=== PATIENT | male | born 1940 | race Caucasian/White ===

== ENCOUNTER → 2017-05-26 | Outpatient (CLI) | payer BC ==
[2017-04-06 09:09] VITALS: BMI 25.5
[~2017-05-26] MED LIST: ACET-3079 PO; ALP25 PO; ALPR-429 PO; AMOX-362 PO; APIX5TAB PO; ASP325 PO; ASPI-1441 PO; ASPI-764 PO; ASPI81TA94 PO; ATEN-1 PO; ATEN-65 PO; BACDS PO; CAR3.125 PO; CAR6.25 PO; CARV12.578 PO; CARV3.1255 PO; CEF300 PO; CELE-1 PO; CEPH500T7 PO; CETI10CA8 PO; CHOL10005 PO; CHOL100052 PO; CHOL100059 PO; CHOL200051 PO; CHOL500050 PO; CIP500 PO; CIPR-214 PO; CIPR-344 PO; CLIN300C99 PO; CLO75 PO; CYCL10TA29 PO; DEXT1DRO15 OP; DOXY-179 PO; DOXY50SY2 PO; ESCI10TA8 PO; ESOM20CA31 PO; ESOM40CA42 PO; FERR325T14 PO; FINA5TAB64 PO; FINA5TAB67 PO; FINASTERIDE; FLAX100042 PO; FURO-47 PO; FURO20TA19 PO; FURO40TA35 PO; GABA-547 PO; GABA-549 PO; GARL5000 PO; HYDR-385 PO; HYDR-4225 PO; HYDR-4228 PO; HYDR-4240 PO; HYDR-4309 PO; HYDR25CA13 PO; HYDR25CA83 PO; HYDR2TAB74 PO; LEV112 PO; LEV500 PO; LEVO-3 PO; LEVO112T44 PO; LEVO50TA80 PO; LIN600 PO; LIS10 PO; LIS5 PO; LISI-362 PO; LOR5/325 PO; MAGN400T10 PO; MAGN400T36 PO; MAGN400T4 PO; MAGN500T6 PO; METO2.5T15 PO; MULT-820 PO; MULTIVIT; NIAC250T18 PO; NIAC500T85 PO; NITR0.4T3 SL; NYST15CR32 TP; OFF COUMADIN FOR OR; OMEG-176 PO; OMEG-96 PO; OMEG100T3 PO; OMEG300C PO; OMEG500C7 PO; OMEP-137 PO; OMEP-153 PO; ONDA4TAB PO; OXYC-373 PO; OXYC-857 PO; OXYC-865 PO; OXYGENHOME INH; PANT40TA65 PO; PER; PER PO; PHENA200 PO; POLY17PO25 PO; POTA20PA25 PO; POTA20TA94 PO; POTA99TA6 PO; PRE5 PO; PRED-1 PO; RANI-324 PO; RANI150C17 PO; RIOC1TAB PO; ROS10 PO; ROSU40TA18 PO; SAW/1TAB2 PO; SIMV-1 PO; SIMV-59 PO; SIMVASTAT; SPIR50TA30 PO; SULF-198 PO; TRAM-420 PO; TRIA15CR40 TP; TRIA1CAP85 PO; UBID100C9 PO; UBID100T PO; UBID200C21 PO; VITA-175 PO; WAR1 PO; WAR5 PO; WARF2TAB81 PO; WARF3TAB36 PO; ZOL5 PO; ZOLP-1 PO; ZOLP-350 PO; ZOLP-360 PO; [UNRECOGNIZED DRUG - OTHER]
== END ==
LOC: AMB 16:10
PROVIDERS: ATTEND Nurse Practitioner
DX: I95.9 Hypotension, unspecified (principal)
CPT/HCPCS: A0425; A0427

== ENCOUNTER 2017-06-04 10:54 | Outpatient (RCR) | payer BC ==
[2017-04-06 09:09] VITALS: Ht 167.6 cm; Wt 66.5 kg
[~2017-06-04] VITALS: Ht 167.6 cm; Wt 66.5 kg
[~2017-06-04 10:54] MED LIST changes: -ONDA4TAB PO
[2017-06-04 11:06] VITALS: BP 122/67
[2017-06-04 12:43] LABS: PLATELET COUNT, AUTOMATED 399 K/uL (150-450)
[2017-06-04] MEDS ORDERED: LEV112 PO (15:54)
--- NOTE | 2017-06-04 21:05 | ONCOLOGY CONSULTATION ---
EVENT DATE: June 04, 2017 REFERRING PHYSICIAN Massimo Yarbrough MD REASON FOR CONSULTATION Evaluation and management of multiple myeloma. HISTORY OF PRESENT ILLNESS Patient is a 76-year-old male who came to the [facility] for evaluation of multiple concerns including severe pulmonary hypertension, recurrent venous thromboembolism, coronary artery disease, systolic heart failure with left ventricular ejection fraction of 45%, COPD, peripheral arterial disease, chronic lower extremity edema, nonhealing lower extremity ulcer and generalized pruritus. During his evaluation and admission there, he had nausea and vomiting and the patient was admitted for evolving sepsis and possible lower extremity cellulitis. His baseline creatinine is 1.4, and during hospitalization his creatinine peaked at 3.1 on May 04, 2017, which has improved after that. It was thought that his acute kidney injury was due to both hypotension and hemoglobin drop. 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 He was eventually diagnosed with multiple myeloma with 10% to 20% lambda light chain restricted plasma cells. Immunofixation showed IgD lambda and serum free light chain noted at kappa of 6.25 and lambda of 88.1, and a ratio of 0.0709. CT skeletal survey was negative for lytic or sclerotic bone lesions. He has had lower extremity edema for several years with erythematous induration. This has become pruritic. Patient does have known peripheral vascular disease. 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 PAST MEDICAL HISTORY 1. Chronic venous insufficiency with edema. 2. Congestive heart failure. 3. Coronary artery disease status post stent in 2007. 4. Peripheral vascular disease status post PTCA, November 2014, November 2015, January 2016, January 2017. 5. Pulmonary hypertension diagnosed in July 2015. 6. Right heart catheterization in December 2016 showed pressure 90/35 with a mean of 52. 7. History of recurrent lower extremity DVT, pulmonary embolism once, on lifelong anticoagulation. 8. Possible COPD, on home oxygen at night. 9. Granulomatous lung disease. 10. Paroxysmal atrial fibrillation. 11. Chronic anxiety. 12. HLA-B27 positive diagnosed with ankylosing spondylitis at [place] in late 1970s, currently quiet. 13. GERD. 14. Indeterminate skin rash. 15. Possible peripheral neuropathy. 16. Hypothyroidism. 17. Early cataract. 18. Multiple myeloma ISS stage II. 19. Proteinuria with normal creatinine 2.2 g/24 hours December 2016. 20. Impaired fasting glucose. A1c 6.3 in 2017. 21. Hyperlipidemia. 22. Hypertension. PAST SURGICAL HISTORY 1. Back surgery with laminectomy in 1970s. 2. Tonsillectomy. 3. Appendectomy. 4. Cholecystectomy. 5. Splenectomy following a high school sports injury. SOCIAL HISTORY Patient lives in [place], [place]. He is and has two children. 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 He smoked approximately a quarter to half a pack per day for 25-30 years and quit in 1989. He drank a fair amount of alcohol in the past, but now less than weekly. Denies drug use. FAMILY HISTORY Mother had lung cancer and she was a smoker. There is positive family history of polycystic disease. CURRENT MEDICATIONS 1. Metolazone 2.5 mg daily every other day. 2. Lasix 40 mg daily. 3. Tramadol 50 mg q.6 hourly p.r.n. for pain. 4. MiraLax 17 g daily. 5. Alprazolam 0.5 mg three times daily as needed for anxiety. 6. Carvedilol 12.5 mg tablet one-half tablet twice daily. 7. Gabapentin 300 mg three times daily. 8. Magnesium oxide 400 mg daily. 9. Adempas 1 mg tablet. 10. Vitamin D 2000 units daily. 11. Eliquis 5 mg twice daily. 12. Artificial Tears four times daily. 13. Levothyroxine 112 mcg daily. 14. Finasteride 5 mg at bedtime. 15. Aspirin 81 mg daily. 16. Oxygen by inhalation. ALLERGIES TRAZODONE which caused itching. REVIEW OF SYSTEMS CONSTITUTIONAL: No appetite or weight change. No fever, chills or sweating. No recent infection. HEENT: Ears: No tinnitus or hearing problem. Nose: Patient has nasal discharge. Throat: No sore throat or mouth ulcers. Eyes: No diplopia or visual changes. RESPIRATORY: Patient has occasional wheezing from asthma. CARDIOVASCULAR: No chest pain, orthopnea, or paroxysmal nocturnal dyspnea (PND) . No edema. No palpitations. GASTROINTESTINAL: No nausea or vomiting. The patient has constipation. No change in bowel movements. No heartburn or swallowing difficulties. No abdominal pain. No jaundice. No hematemesis, melena or rectal bleeding. GENITOURINARY: No hematuria or dysuria. MUSCULOSKELETAL: He has pain all over his joints. NEUROLOGICAL: Patient has occasional headache. HEMATOLOGIC/LYMPHATIC: He bruises easily, but he is using Eliquis. He is weak , tired and fatigued. No enlarged lymph nodes. SKIN: He has itching. PSYCHIATRIC: No anxiety or depression. PHYSICAL EXAMINATION GENERAL: Looks stable. Well-developed, well-nourished, and in no acute distress. VITAL SIGNS: Blood pressure 122/67, pulse 69 per minute, respirations 16 per minute, temperature 97.6, pulse oximetry 92% on 5L oxygen. HEENT: Head: Atraumatic. No sinus tenderness to palpation. Eyes: No icterus or conjunctivitis. Mouth and throat: No oral thrush or mucositis. NECK: Supple. No cervical or supraclavicular lymphadenopathy. LUNGS: Clear to auscultation and percussion bilaterally. HEART: Regular rate and rhythm. No gallops, murmurs, clicks or rubs. ABDOMEN: Soft and lax. No tenderness. No hepatosplenomegaly. No masses. EXTREMITIES: There is bilateral leg edema with evidence of chronic venous insufficiency in his legs. LYMPHATICS: No peripheral lymphadenopathy. NEUROLOGICAL: Conscious, alert and oriented times three. No focal motor or sensory deficits. PSYCHIATRIC: Mood and affect appear normal. SKIN: No skin rash, bruise or purpuric eruption. 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 CT skeletal survey came back negative for lytic or sclerotic bone lesions. Patient has been evaluated at [facility] and it seems that for his smoldering myeloma they recommended only followup. I am planning to proceed with CBC, chem panel, LDH, uric acid and myeloma profile today, including immunofixation for IgD. I will see him again in three months, repeating the same labs. I will try to get the records from his dent remover at the [facility]. If the patient will need treatment then, we will proceed with treatment for myeloma, most probably with Velcade and dexamethasone, or CyBorD chemotherapy. PLAN 1. CBC, chem panel, LDH, uric acid. 2. Myeloma profile including immunofixation for IgD. 3. Patient is to return in three months with the same labs. 4. Get records from his dent remover at the [facility]. 5. Patient is to contact us for any new concerns or complaints. DAVID
[2017-06-06] MEDS ORDERED: ONDA4TAB PO (09:06)
[2017-06-09] MEDS ORDERED: FERR-53 PO (15:05)
[2017-06-17] MEDS ORDERED: HYDR-4225 PO (17:11)
[2017-06-17] MEDS ORDERED: TRIA15CR40 TP (17:11)
[2017-06-17] MEDS ORDERED: RANI75TA5 PO (17:11)
[2017-06-17] MEDS ORDERED: DULO30CA6 PO (17:11)
[2017-07-02] MEDS ORDERED: DOXE45CR5 TD (11:33)
[2017-07-02] MEDS ORDERED: HYDR-4225 PO (11:33)
[2017-07-02] MEDS ORDERED: RANI150C17 PO (11:33)
[2017-07-02] MEDS ORDERED: PNEU0.5D3 IM (11:33)
[2017-07-02] MEDS ORDERED: DULO60CA56 PO (11:33)
[2017-07-13] MEDS ORDERED: OXYC-865 PO (13:04)
[2017-07-13] MEDS ORDERED: FURO40TA35 PO (13:04)
[2017-07-13] MEDS ORDERED: NYST15CR32 TP (13:04)
[2017-07-13] MEDS ORDERED: PREG50CA48 PO (13:11)
[2017-07-14] MEDS ORDERED: FINA5TAB67 PO (09:33)
[2017-07-14] MEDS ORDERED: ROSU40TA18 PO (09:33)
[2017-07-27] MEDS ORDERED: CAR6.25 PO (12:51)
[2017-07-27] MEDS ORDERED: PREG100C44 PO (12:51)
[2017-07-27] MEDS ORDERED: FURO40TA35 PO (12:51)
[2017-08-07] MEDS ORDERED: OXYGENHOME INH (19:00)
[2017-08-10] MEDS ORDERED: TRIA15OI20 TP (16:18)
[2017-08-12] MEDS ORDERED: CLOB15OI16 TP (11:18)
[2017-08-13] MEDS ORDERED: PREG150C33 PO (11:41)
[2017-08-16] MEDS ORDERED: DULO60CA56 PO (11:37)
[2017-08-17] MEDS ORDERED: HEPA40VI2 IM (10:00)
[2017-08-30] MEDS ORDERED: PNEI IJ (09:54)
== END 2017-09-01 ==
LOC: ONC 10:54
PROVIDERS: ATTEND Internal Medicine Hematology
DX: C90.00 Multiple myeloma not having achieved remission (principal); Z87.891 Personal history of nicotine dependence; Z79.82 Long term (current) use of aspirin; Z79.899 Other long term (current) drug therapy; J45.909 Unspecified asthma, uncomplicated; K59.00 Constipation, unspecified; R53.1 Weakness; R53.83 Other fatigue
CPT/HCPCS: 82040; 82232; 82247; 82310; 82374; 82435; 82565; 82947; 83615; 83883; 84075; 84132; 84155; 84295; 84450; 84460; 84520; 84550; 85025; 86334; 99202

== ENCOUNTER → 2017-06-04 | Outpatient (CLI) | payer BC ==
[2017-04-06 09:09] VITALS: BMI 25.5
[~2017-06-04] MED LIST changes: -FERR325T14 PO
== END ==
LOC: SPU 14:46
PROVIDERS: ATTEND Internal Medicine
DX: I50.9 Heart failure, unspecified (principal); Z86.711 Personal history of pulmonary embolism; I50.22 Chronic systolic (congestive) heart failure; N17.9 Acute kidney failure, unspecified; I83.009 Varicose veins of unspecified lower extremity with ulcer of unspecified site; I27.20 Pulmonary hypertension, unspecified; E86.0 Dehydration; F41.8 Other specified anxiety disorders
CPT/HCPCS: 82728; 83540; 83550; 83880; 84443

== ENCOUNTER 2017-06-06 08:27 | Emergency (ER) | payer BC ==
[2017-04-06 09:09] VITALS: Ht 167.6 cm; Wt 65.9 kg
[~2017-06-06] VITALS: Ht 167.6 cm; Wt 65.9 kg
[~2017-06-06 08:27] MED LIST changes: -DULO30CA6 PO; -FERR-53 PO; -ONDA4TAB PO; -RANI75TA5 PO
--- NOTE | 2017-06-06 08:53 | ER Report ---
History and Physical Time Seen By MD: 08:41 Hx. of Stated Complaint: pt reports vomiting since 1500 yesterday and pain in entire abdomen HPI/ROS CC: Nausea and vomiting HPI: 76-year-old male presents to the emergency Department per EMS. Past medical history ankylosing spondylosis and cervical radiculopathy to renal failure and anxiety depression, PE, chronic systolic heart failure, non-ST elevated GA, hypothyroid vascular disease, splenectomy, cholecystectomy. Patient presents to the emergency department with nausea vomiting and abdominal pain from throwing up. He specifically is asking for Dilaudid and ketamine. I discussed with him in depth that I cannot give him narcotics for his chronic pain which he is requesting because he is receiving oxycodone on a monthly basis from his PCP. He states that he does have oxycodone at home tonight reiterated that he does have a powerful narcotic for his pain control. If I give him pain medication for chronic pain in the emergency department it could jeopardize his relationship with his PCP and he may lose his PCP and his oxycodone prescription. I discussed with him that I would give him something for nausea and vomiting. But no narcotics will be given at this time for chronic pain which she is presenting with. He is rating his discomfort level as a 7 out of 10. He is afebrile. He denies any diarrhea. He is well-known to the emergency department for requesting narcotics. ROS: 12 point review of systems essentially negative other than what's mentioned in history of present illness. NURSES AND OLD MEDICAL RECORDS: Reviewed PMH: Reviewed SURGICAL HX: Reviewed FAMILY HX: Noncontributory SOCIAL HX: Patient is a home he denies illicit drugs, he does drink wine denies smoking. VITAL SIGNS: Reviewed CONSTITUTIONAL: 76-year-old male in minimal distress. PHYSICAL EXAM: HEENT: Pupils equal round reactive to light and accommodate, EOMI, tympanic membranes pearly white umbo present with good light reflex. Lips dry mucous membranes moist gums nonbleeding uvula midline and rises equally with phonation, oropharynx noninjected, teeth intact. NECK: Neck supple, thyroid not appreciated, anterior and posterior cervical lymphadenopathy not appreciated. Trachea midline and rises equally with phonation. CARDIAC: S1-S2 regular rate rhythm no murmurs rubs or gallops. LUNGS: Lungs clear bilaterally posteriorly in all michael. Good air movement. ABDOMEN: Abdomen soft, nondistended, bowel sounds active in all 4 quadrants, no bruits noted, no CVA tenderness. MUSCULOSKELETAL: Strength 5 out of 5 x 4 extremities, no deformities noted. Does have peripheral vascular disease. NEUROLOGIC: Patient alert and oriented by 3 Allergies: Coded Allergies: trazodone (Verified Allergy, Intermediate, 06/06/17) Home Meds Active Scripts Levothyroxine Sodium (LEVOTHYROXINE SODIUM) 0.112 Mg Tab, 0.112 MG PO QAM, #90 TAB 3 Refills Prov:ELIS VALLE MD 06/04/17 Escitalopram Oxalate (ESCITALOPRAM OXALATE) 10 Mg Tablet, 10 MG PO QDAY, #30 TAB 5 Refills Prov:ELIS VALLE MD 06/04/17 Metolazone (METOLAZONE) 2.5 Mg Tablet, 2.5 MG PO QODAY, #15 TAB Hold for 72hrs then resume Prov:NAN CORTES DO 05/27/17 Furosemide (LASIX) 40 Mg Tablet, 1 TAB PO DIRECTED, #90 TAB Hold for 48hrs then resume 2 tab in AM and 1 tab in PM daily Prov:NAN CORTES DO 05/27/17 Carvedilol (CARVEDILOL) 12.5 Mg Tablet, 0.5 MG PO BID, #60 TAB 4 Refills Prov:ELIS VALLE MD 05/17/17 Gabapentin (GABAPENTIN) 300 Mg Capsule, 300 MG PO TID, #90 CAPSULE 3 Refills Prov:ELIS VALLE MD 04/13/17 Magnesium Oxide (MAG-OXIDE) 400 Mg Tablet, 400 MG PO QDAY, #30 Prov:ELIS VALLE MD 04/13/17 Apixaban (ELIQUIS) 5 Mg Tablet, 5 MG PO BID, #60 TAB 3 Refills Prov:ELIS VALLE MD 03/08/17 Reported Medications Tramadol Hcl (TRAMADOL HCL) 50 Mg Tablet, 50 MG PO Q6H Y for pain, TAB 05/17/17 Polyethylene Glycol 3350 (MIRALAX) 17 Gm Powd.pack, 17 GM PO QDAY, PKT 05/17/17 Alprazolam (XANAX) 0.5 Mg Tablet, 0.5 TAB PO TID Y for anxiety, TAB 05/17/17 Riociguat (Adempas) 1 Mg Tablet, 0.5 MG PO TID 03/23/17 Cholecalciferol (Vitamin D3) (D-2000) 2,000 Unit Capsule, 2000 UNIT PO QDAY, CAPSULE 03/23/17 Dextran 70/Hypromellose (ARTIFICIAL TEARS) 1 Each Droperette, 1 EACH OP QID 12/31/16 Finasteride (FINASTERIDE) 5 Mg Tablet, 5 MG PO QHS 12/31/16 Aspirin (ASPIRIN) 81 Mg Tab.chew, 81 MG PO QDAY, TAB.CHEW 12/31/16 Oxygen (OXYGEN) Inha, 2.5 L INH, L 07/13/16 Hx Smoking: Yes Smoking Status: Former Smoker Exposure to Second Hand Smoke?: No Hx Substance Use Disorder: No Hx Alcohol Use: Yes (1-2 per week) Constitutional Vital Sign - Last 24 Hours 06/06/17 08:31 Temp 98.1 Pulse 106 Resp 14 B/P (MAP) 166/107 Pulse Ox 93 Medical Decision Making ED Course/Re-evaluation ED Course I discussed in length that he would not be receiving narcotics are ketamine in the emergency Department for his chronic pain syndrome. He will be getting Phenergan and/or Zofran. He will be discharged home and follow-up with his PCP. I reiterated that I would not jeopardize his relationship with his PCP Y giving him narcotics for a chronic pain syndrome in the emergency department. Patient were planted in agreement. Re-evaluation Medical decision-making viral gastroenteritis, drug-seeking. Decision to Disposition Date: Jun 06, 2017 Decision to Disposition Time: 09:04 Depart Departure Latest Vital Signs Vital Signs Date Time Temp Pulse Resp B/P (MAP) Pulse Ox O2 Delivery O2 Flow Rate FiO2 06/06/17 08:31 98.1 106 14 166/107 93 Impression: Primary Impression: Nausea & vomiting Condition: Condition Unchanged Disposition: HOME OR SELF-CARE Referrals: ELIS VALLE MD (PCP) New Scripts Ondansetron (ZOFRAN ODT) 4 Mg Tab.rapdis 8 MG PO Q6H Y for NAUSEA/VOMITING, #20 TAB.ODALIS 0 Refills Prov: NEEMA LOGAN MD 06/06/17 Patient Instructions: Acute Nausea and Vomiting (ED) Additional Instructions: Immediately given Zofran take as directed. Follow-up with your regular doctor for pain control via chronic pain syndromes. I and the staff wanted to thank you for allowing us to take care of your needs today in the emergency department at [facility]. We have tried to answer all of your questions and concerns. Please feel free to return to the emergency department for any further concerns or unanswered questions. Problem Qualifiers Primary Impression: Nausea & vomiting Vomiting type: unspecified Vomiting Intractability: unspecified Qualified Codes: R11.2 - Nausea with vomiting, unspecified NEEMA LOGAN MD Jun 06, 2017 08:53
[2017-06-06] MEDS ORDERED: ONDA4TAB PO (09:06)
[2017-06-06 09:18] VITALS: BP 146/108
[2017-06-09] MEDS ORDERED: FERR325T14 PO (15:05)
== END 2017-06-06 09:44 | disposition home or self-care (01) ==
LOC: ER 08:47
DX: R11.2 Nausea with vomiting, unspecified (principal)
CPT/HCPCS: 99284

== ENCOUNTER → 2017-06-06 | Outpatient (CLI) | payer BC ==
[2017-04-06 09:09] VITALS: BMI 25.5
[~2017-06-06] MED LIST changes: +DULO30CA6 PO; +FERR-53 PO; +ONDA4TAB PO; +RANI75TA5 PO
== END ==
LOC: AMB 09:40
PROVIDERS: ATTEND Nurse Practitioner
DX: R06.02 Shortness of breath (principal); R10.9 Unspecified abdominal pain
CPT/HCPCS: A0425; A0428

== ENCOUNTER → 2017-06-06 | Outpatient (CLI) | payer BC ==
[2017-04-06 09:09] VITALS: BMI 25.5
== END ==
LOC: AMB 07:53
PROVIDERS: ATTEND Nurse Practitioner
DX: R10.9 Unspecified abdominal pain (principal); R11.10 Vomiting, unspecified; R53.1 Weakness
CPT/HCPCS: A0425; A0427

== ENCOUNTER 2017-06-25 08:14 | Outpatient (RCR) | payer BC ==
[2017-04-06 09:09] VITALS: BMI 25.5
[~2017-06-25 08:14] MED LIST changes: +DULO30CA6 PO; +FERR-53 PO; +ONDA4TAB PO; -RANI-324 PO; +RANI-366 PO; +RANI75TA5 PO; -SIMV-59 PO; +SIMV-63 PO; +WARF2TAB13 PO; -WARF2TAB81 PO
--- NOTE | 2017-06-28 12:52 | Transitional Care Management ---
Assessment Visit Type: Telephone Visit Spoke with: Meño Cardiac: WNL Except Cardiac Comment: 06/28 Reports hes managing CHF with lasix 2 tab in am and 1 in pm. Is taking his bp med bid. Cant wrap legs or use comp socks as his legs were too tender but, keeps them elevated above his heart when in his recliner Respiratory: WNL Except Respiratory Comment: 06/28 Reports "I don't need it (oxygen)". Wears anywhere from 2-4 L when he does wear it. He states pox 86% on avg and instructed he should have it at 89 or more. Review se of low o2 could be SOB confusion. Is on adempas and the pharmacy has a person from [place] assess his bp prior to renewing or increasing dose. He notes prior bps were 140/80 but now 120/80 and was once 88/48 but no dizzyness. Instruct not to take with his magnesium. GI: Nutrition: WNL Except GI Comment: 06/28 reports never liked much salt. primary fresh fruit and vegies. He only restricted fluids when his legs were edematous. Enc him to limit to 2L due to CHF dx. Not a smoker, Cant remember last etoh drink. Only a cup of coffee rarely. Little fat in diet Wt Gain/Loss: WNL Except Weight Comment: needs daily wt Musculoskeletal, Exercise: WNL Except Musculoskeletal, Excercise Com: 06/28 with less pain states he can walk better/more. Enc to keep walking to improve circulation/pain Integumentary: WNL Except Integumentary Comment: 06/28 states "I cut the aspirin out 2-3 weeks ago...just experimenting" States he took it for years but quit because his legs beneath the knees bilat had pain, redness, drainage, edema and arms were black and blue. All symptons have been improving since quitting ASA. Asked if he thinks the duloxetine and hydroxyzine have helped and may be the reason his sx have improved. REcomended he ask Dr before quitting any med and that he ask him if he should resume since he has had stents in the past and that ASA was supposed to prevent platelets from clogging his stents. Has appt with Dr Reese for allergy testing 07/13 Feeling of Well Being: WNL Except Feeling of Well Being Comment: 06/28 felt bad after going to [facility]. Lost his job. Now is a "shut in" but he can drive now. Pain/Management: WNL Except Pain/Management Comment: 06/28 improving in legs with duloxetine and stopping his ASA about the same time Scheduled Follow-Up with [facility]: Yes (Dr Yarbrough 07/02. Dr Reese 07/13) Community Resources/[facility]: 06/28 states Eliane from [facility] pharmacy visits him for adempas refill and to increasing dose .5mg each refill. Questions for Future PCP Visit: 06/28 Has stopped ASA on his own. Should he resume? Duloxetine started about the same time and symptoms have improved, should it be continued? Is it safe to go without O2 prn thru the day? He reports lowered bp and edema with adempas use. Insomnia? TCM Discharge Criteria Medication Knowledge: 06/28 review some meds with him and he knows names and doses Disease Management/Concern/Wha: CHF Transitional Care Comment: 06/28 Refererd to TCN due to frequency in ER. He reports feeling better since his return from [place]. Only wearing O2 prn days and at hs. "I just turn it on to 2,3,4, I don't know the difference, and breathe". REeports leg redness, edema and scales have diminished by stopping his ASA. Enc him to discuss this with MD before self medicating as his stent is at risk of clogging. Will need reminding to limit fluids, wt q day and CHF sx to monitor and report. Agree to f/u next week Copies to: ELIS YARBROUGH MD, GENEVA E Jun 28, 2017 12:52
[2017-07-02] MEDS ORDERED: DULO60CA56 PO (11:33)
[2017-07-02] MEDS ORDERED: PNEU0.5D3 IM (11:33)
[2017-07-02] MEDS ORDERED: RANI150C17 PO (11:33)
[2017-07-02] MEDS ORDERED: DOXE45CR5 TD (11:33)
[2017-07-02] MEDS ORDERED: HYDR-4225 PO (11:33)
--- NOTE | 2017-07-06 13:49 | Transitional Care Management ---
Assessment Visit Type: Telephone Visit Spoke with: Meño Cardiac: WNL Except Cardiac Comment: 06/28 Reports hes managing CHF with lasix 2 tab in am and 1 in pm. Is taking his bp med bid. Cant wrap legs or use comp socks as his legs were too tender but, keeps them elevated above his heart when in his recliner 07/06 No edema, lasix continues. He is not taking any asprin. Respiratory: WNL Except Respiratory Comment: 06/28 Reports "I don't need it (oxygen)". Wears anywhere from 2-4 L when he does wear it. He states pox 86% on avg and instructed he should have it at 89 or more. Review se of low o2 could be SOB confusion. Is on adempas and the pharmacy has a person from [place] assess his bp prior to renewing or increasing dose. He notes prior bps were 140/80 but now 120/80 and was once 88/48 but no dizzyness. Instruct not to take with his magnesium. 07/06 Wears 2-4 L PRN, he tollerates longer periods without O2. Checks his O2 sats regularly, maintaining 89-91% on RA for extended periods. GI: Nutrition: WNL Except GI Comment: 06/28 reports never liked much salt. primary fresh fruit and vegies. He only restricted fluids when his legs were edematous. Enc him to limit to 2L due to CHF dx. Not a smoker, Cant remember last etoh drink. Only a cup of coffee rarely. Little fat in diet 07/06 reinforced 2L fluid restriction. Wt Gain/Loss: WNL Except Weight Comment: needs daily wt 07/06 He says his weights are doing "real good", but can't remember his last weight, that was a few days ago. I stressed the importance of daily weights. Constipation?: No : WNL Musculoskeletal, Exercise: WNL Except Musculoskeletal, Excercise Com: 06/28 with less pain states he can walk better/more. Enc to keep walking to improve circulation/pain 07/06 Increased foot pain, "feels like I am walking on gravel". Dr Yarbrough ordered a cream for this during his last visit, but he was unable to get it due to cost. Mobility/Falls: WNL Except Mobility Comment: 07/06 He can only walk short distances due to foot pain. Integumentary: WNL Except Integumentary Comment: 06/28 states "I cut the aspirin out 2-3 weeks ago...just experimenting" States he took it for years but quit because his legs beneath the knees bilat had pain, redness, drainage, edema and arms were black and blue. All symptons have been improving since quitting ASA. Asked if he thinks the duloxetine and hydroxyzine have helped and may be the reason his sx have improved. REcomended he ask Dr before quitting any med and that he ask him if he should resume since he has had stents in the past and that ASA was supposed to prevent platelets from clogging his stents. Has appt with Dr Reese for allergy testing 07/13 07/06 Left leg wound, [facility] is discharging him, and he dosn't know how this wound will get cared for. Feeling of Well Being: WNL Except Feeling of Well Being Comment: 06/28 felt bad after going to [facility]. Lost his job. Now is a "shut in" but he can drive now. 07/06 "I can't walk or work, medical costs are going up, I guess I'll live until I run out of money." Socialization: WNL Except Socialization Comment: 07/06 Not getting out of his house. Pain/Management: WNL Except Pain/Management Comment: 06/28 improving in legs with duloxetine and stopping his ASA about the same time 07/06 Unable to walk more than about 50 ft due to pain in his feet. "I feel like I am walking on gravel." He was unable to fill a script for a cream to help with this. Scheduled Follow-Up with [facility]: Yes (Dr Yarbrough 07/09) Community Resources/[facility]: 06/28 states Eliane from [facility] pharmacy visits him for adempas refill and to increasing dose .5mg each refill. 07/06 [facility] discharged him. Questions for Future PCP Visit: 06/28 Has stopped ASA on his own. Should he resume? Duloxetine started about the same time and symptoms have improved, should it be continued? Is it safe to go without O2 prn thru the day? He reports lowered bp and edema with adempas use. Insomnia? 07/06 Need for anticoagulation? Neuropathy pain in his feet? TCM Discharge Criteria Medication Knowledge: 06/28 review some meds with him and he knows names and doses Disease Management/Concern/Wha: CHF Transitional Care Comment: 06/28 Refererd to TCN due to frequency in ER. He reports feeling better since his return from [place]. Only wearing O2 prn days and at hs. "I just turn it on to 2,3,4, I don't know the difference, and breathe". REeports leg redness, edema and scales have diminished by stopping his ASA. Enc him to discuss this with MD before self medicating as his stent is at risk of clogging. Will need reminding to limit fluids, wt q day and CHF sx to monitor and report. Agree to f/u next week 07/06 He is less mobile, due to pain. Wears O2 PRN, sats 89-91 RA. He is not taking ASA, I explained the risks. I encouraged daily weights, 2L fluid restriction. He has an appt with Dr Yarbrough on Wednesday, I encouraged him to ask about the ASA, Medications for his peripheral neuropathies. Copies to: ELIS YARBROUGH MD, MICHAEL K Jul 06, 2017 13:49
[2017-07-13] MEDS ORDERED: FURO40TA35 PO (13:04)
[2017-07-13] MEDS ORDERED: NYST15CR32 TP (13:04)
[2017-07-13] MEDS ORDERED: OXYC-865 PO (13:04)
[2017-07-13] MEDS ORDERED: PREG50CA48 PO (13:11)
[2017-07-14] MEDS ORDERED: ROSU40TA18 PO (09:33)
[2017-07-14] MEDS ORDERED: FINA5TAB67 PO (09:33)
--- NOTE | 2017-07-14 12:29 | Transitional Care Management ---
Assessment Visit Type: Telephone Visit Spoke with: Meño Cardiac: WNL Except Cardiac Comment: 06/28 Reports hes managing CHF with lasix 2 tab in am and 1 in pm. Is taking his bp med bid. Ulices wrap legs or use comp socks as his legs were too tender but, keeps them elevated above his heart when in his recliner 07/06 No edema, lasix continues. He is not taking any asprin. 07/13 states legs "not swollen" but wt increasing. taking lasix bid, ulices wear comp socks, "skin sensitive to touch" too painful to place Respiratory: WNL Except Respiratory Comment: 06/28 Reports "I don't need it (oxygen)". Wears anywhere from 2-4 L when he does wear it. He states pox 86% on avg and instructed he should have it at 89 or more. Review se of low o2 could be SOB confusion. Is on adempas and the pharmacy has a person from [place] assess his bp prior to renewing or increasing dose. He notes prior bps were 140/80 but now 120/80 and was once 88/48 but no dizzyness. Instruct not to take with his magnesium. 07/06 Wears 2-4 L PRN, he tollerates longer periods without O2. Checks his O2 sats regularly, maintaining 89-91% on RA for extended periods. 07/14 sats 90% yest in clinic on 4 L; stress importance of wearing /7 and for helping PVD. denies sob, Enc cdb to prevent pneumonia GI: Nutrition: WNL Except GI Comment: 06/28 reports never liked much salt. primary fresh fruit and vegies. He only restricted fluids when his legs were edematous. Enc him to limit to 2L due to CHF dx. Not a smoker, Ulices remember last etoh drink. Only a cup of coffee rarely. Little fat in diet 07/06 reinforced 2L fluid restriction. 07/13 c/o chronic constipation, review colace, miralaxand fiber. "Need to drink" whentold to restrict to 2 L a day Wt Gain/Loss: WNL Except Weight Comment: needs daily wt 07/06 He says his weights are doing "real good", but can't remember his last weight, that was a few days ago. I stressed the importance of daily weights. 07/14 reports up to 141 now . asked if it was water wt as lasix can only help with limited amount Constipation?: No : WNL Musculoskeletal, Exercise: WNL Except Musculoskeletal, Excercise Com: 06/28 with less pain states he can walk better/more. Enc to keep walking to improve circulation/pain 07/06 Increased foot pain, "feels like I am walking on gravel". Dr Yarbrough ordered a cream for this during his last visit, but he was unable to get it due to cost. Mobility/Falls: WNL Except Mobility Comment: 07/06 He can only walk short distances due to foot pain. 07/14 reports he lost his balance and fell at home. has stairs to climb and his legs buckle if he has to carry something. Knows exercises he can do in his chair to help maintain strength andmobility. enc to do them or return to PT. Integumentary: WNL Except Integumentary Comment: 06/28 states "I cut the aspirin out 2-3 weeks ago...just experimenting" States he took it for years but quit because his legs beneath the knees bilat had pain, redness, drainage, edema and arms were black and blue. All symptons have been improving since quitting ASA. Asked if he thinks the duloxetine and hydroxyzine have helped and may be the reason his sx have improved. REcomended he ask Dr before quitting any med and that he ask him if he should resume since he has had stents in the past and that ASA was supposed to prevent platelets from clogging his stents. Has appt with Dr Reese for allergy testing 07/13 07/06 Left leg wound, [facility] is discharging him, and he dosn't know how this wound will get cared for. 07/14 saw ENT yesterday who is getting f/u on a biopsy, will return on 07/21 Feeling of Well Being: WNL Except Feeling of Well Being Comment: 06/28 felt bad after going to [facility]. Lost his job. Now is a "shut in" but he can drive now. 07/06 "I can't walk or work, medical costs are going up, I guess I'll live until I run out of money." 07/14 reports cant afford $200 copay for newlyrica. States "tired of living like this" and "this isn't living". will trylyrica Socialization: WNL Except Socialization Comment: 07/06 Not getting out of his house. Pain/Management: WNL Except Pain/Management Comment: 06/28 improving in legs with duloxetine and stopping his ASA about the same time 07/06 Unable to walk more than about 50 ft due to pain in his feet. "I feel like I am walking on gravel." He was unable to fill a script for a cream to help with this. 07/14 has new rx for percocet bid. enc to keep legs elevated Scheduled Follow-Up with Provi: Yes (Dr Yarbrough 07/09) Community Resources/HHC: 06/28 states Eliane from [facility] pharmacy visits him for adempas refill and to increasing dose .5mg each refill. 07/06 [facility] discharged him. 07/14 sees Zenon in 2 wk. His nurse to make f/u with cardio and pulm Questions for Future PCP Visit: 06/28 Has stopped ASA on his own. Should he resume? Duloxetine started about the same time and symptoms have improved, should it be continued? Is it safe to go without O2 prn thru the day? He reports lowered bp and edema with adempas use. Insomnia? 07/06 Need for anticoagulation? Neuropathy pain in his feet? 07/14 PT for weakness and fall? Ability to pay $200 copay for lyrica. Pt states he "needs to drink " but is on 2 L fluid restriction for CHF; please clarify with pt. f/u for statement that "I'm tired of living like this". Referral to [place] specialist in [place] for a laser treatment? TCM Discharge Criteria Medication Knowledge: 06/28 review some meds with him and he knows names and doses Disease Management/Concern/Wha: CHF Transitional Care Comment: 06/28 Refererd to TCN due to frequency in ER. He reports feeling better since his return from [place]. Only wearing O2 prn days and at hs. "I just turn it on to 2,3,4, I don't know the difference, and breathe". REeports leg redness, edema and scales have diminished by stopping his ASA. Enc him to discuss this with MD before self medicating as his stent is at risk of clogging. Will need reminding to limit fluids, wt q day and CHF sx to monitor and report. Agree to f/u next week 07/06 He is less mobile, due to pain. Wears O2 PRN, sats 89-91 RA. He is not taking ASA, I explained the risks. I encouraged daily weights, 2L fluid restriction. He has an appt with Dr Yarbrough on Wednesday, I encouraged him to ask about the ASA, Medications for his peripheral neuropathies. Copies to: ELIS YARBROUGH MDSEBEWAING Celina Jul 14, 2017 12:29
[2017-07-27] MEDS ORDERED: PREG100C44 PO (12:51)
[2017-07-27] MEDS ORDERED: CAR6.25 PO (12:51)
[2017-07-27] MEDS ORDERED: FURO40TA35 PO (12:51)
--- NOTE | 2017-08-03 14:27 | Transitional Care Management ---
Assessment Cardiac: WNL Except Cardiac Comment: 06/28 Reports hes managing CHF with lasix 2 tab in am and 1 in pm. Is taking his bp med bid. Ulices wrap legs or use comp socks as his legs were too tender but, keeps them elevated above his heart when in his recliner 07/06 No edema, lasix continues. He is not taking any asprin. 07/13 states legs "not swollen" but wt increasing. taking lasix bid, ulices wear comp socks, "skin sensitive to touch" too painful to place 07/21 denies edema, sob or wt gain Respiratory: WNL Except Respiratory Comment: 06/28 Reports "I don't need it (oxygen)". Wears anywhere from 2-4 L when he does wear it. He states pox 86% on avg and instructed he should have it at 89 or more. Review se of low o2 could be SOB confusion. Is on adempas and the pharmacy has a person from [place] assess his bp prior to renewing or increasing dose. He notes prior bps were 140/80 but now 120/80 and was once 88/48 but no dizzyness. Instruct not to take with his magnesium. 07/06 Wears 2-4 L PRN, he tollerates longer periods without O2. Checks his O2 sats regularly, maintaining 89-91% on RA for extended periods. 07/14 sats 90% yest in clinic on 4 L; stress importance of wearing /7 and for helping PVD. denies sob, Enc cdb to prevent pneumonia 07/21 denies sob but act is still limited GI: Nutrition: WNL Except GI Comment: 06/28 reports never liked much salt. primary fresh fruit and vegies. He only restricted fluids when his legs were edematous. Enc him to limit to 2L due to CHF dx. Not a smoker, Ulices remember last etoh drink. Only a cup of coffee rarely. Little fat in diet 07/06 reinforced 2L fluid restriction. 07/13 c/o chronic constipation, review colace, miralaxand fiber. "Need to drink" whentold to restrict to 2 L a day 07/21 cont. to recommend 2 L restriction Wt Gain/Loss: WNL Except Weight Comment: needs daily wt 07/06 He says his weights are doing "real good", but can't remember his last weight, that was a few days ago. I stressed the importance of daily weights. 07/14 reports up to 141 now . asked if it was water wt as lasix can only help with limited amount Constipation?: No : WNL Musculoskeletal, Exercise: WNL Except Musculoskeletal, Excercise Com: 06/28 with less pain states he can walk better/more. Enc to keep walking to improve circulation/pain 07/06 Increased foot pain, "feels like I am walking on gravel". Dr Yarbrough ordered a cream for this during his last visit, but he was unable to get it due to cost. Mobility/Falls: WNL Except Mobility Comment: 07/06 He can only walk short distances due to foot pain. 07/14 reports he lost his balance and fell at home. has stairs to climb and his legs buckle if he has to carry something. Knows exercises he can do in his chair to help maintain strength andmobility. enc to do them or return to PT. Integumentary: WNL Except Integumentary Comment: 06/28 states "I cut the aspirin out 2-3 weeks ago...just experimenting" States he took it for years but quit because his legs beneath the knees bilat had pain, redness, drainage, edema and arms were black and blue. All symptons have been improving since quitting ASA. Asked if he thinks the duloxetine and hydroxyzine have helped and may be the reason his sx have improved. REcomended he ask Dr before quitting any med and that he ask him if he should resume since he has had stents in the past and that ASA was supposed to prevent platelets from clogging his stents. Has appt with Dr Reese for allergy testing 07/13 07/06 Left leg wound, [facility] is discharging him, and he dosn't know how this wound will get cared for. 07/14 saw ENT yesterday who is getting f/u on a biopsy, will return on 07/21 07/21 KOBI Reese told him he had 100's allergies and will start shots 1-2 x a week. states leg wound cont. to get better and no s/s infection Feeling of Well Being: WNL Except Feeling of Well Being Comment: 06/28 felt bad after going to [facility]. Lost his job. Now is a "shut in" but he can drive now. 07/06 "I can't walk or work, medical costs are going up, I guess I'll live until I run out of money." 07/14 reports cant afford $200 copay for newlyrica. States "tired of living like this" and "this isn't living". will trylyrica 07/21 pain is better and sounds more energetic Socialization: WNL Except Socialization Comment: 07/06 Not getting out of his house. Pain/Management: WNL Except Pain/Management Comment: 06/28 improving in legs with duloxetine and stopping his ASA about the same time 07/06 Unable to walk more than about 50 ft due to pain in his feet. "I feel like I am walking on gravel." He was unable to fill a script for a cream to help with this. 07/14 has new rx for percocet bid. enc to keep legs elevated 07/21 pain better and able to walk more Scheduled Follow-Up with Provi: Yes (Dr Yarbrough 07/09) Community Resources/HHC: 06/28 states Eliane from [facility] pharmacy visits him for adempas refill and to increasing dose .5mg each refill. 07/06 [facility] HH discharged him. 07/14 sees Zenon in 2 wk. His nurse to make f/u with cardio and pulm Questions for Future PCP Visit: 06/28 Has stopped ASA on his own. Should he resume? Duloxetine started about the same time and symptoms have improved, should it be continued? Is it safe to go without O2 prn thru the day? He reports lowered bp and edema with adempas use. Insomnia? 07/06 Need for anticoagulation? Neuropathy pain in his feet? 07/14 PT for weakness and fall? Ability to pay $200 copay for lyrica. Pt states he "needs to drink " but is on 2 L fluid restriction for CHF; please clarify with pt. f/u for statement that "I'm tired of living like this". Referral to [place] specialist in PVD for a laser treatment? TCM Discharge Criteria Medication Knowledge: 06/28 review some meds with him and he knows names and doses 07/21 states hes taking b vit and that may be why legs are feeling better, also taking lyrica and percocet. keeps med list up to date with danny md visit Disease Management/Concern/Wha: CHF Transitional Care Comment: 06/28 Refererd to TCN due to frequency in ER. He reports feeling better since his return from [place]. Only wearing O2 prn days and at hs. "I just turn it on to 2,3,4, I don't know the difference, and breathe". REeports leg redness, edema and scales have diminished by stopping his ASA. Enc him to discuss this with MD before self medicating as his stent is at risk of clogging. Will need reminding to limit fluids, wt q day and CHF sx to monitor and report. Agree to f/u next week 07/06 He is less mobile, due to pain. Wears O2 PRN, sats 89-91 RA. He is not taking ASA, I explained the risks. I encouraged daily weights, 2L fluid restriction. He has an appt with Dr Yarbrough on Wednesday, I encouraged him to ask about the ASA, Medications for his peripheral neuropathies. 07/21 Enc him to communicate to MD's his addition of vitamins or change to other meds. Rash being addressed by MD and leg pain better. more active and feels better. will f/u in 2 weeks 08/03 Unable to contact Copies to: ELIS YARBROUGH MD, JOAN Aug 03, 2017 14:27
[2017-08-07] MEDS ORDERED: OXYGENHOME INH (19:00)
--- NOTE | 2017-08-09 14:27 | Transitional Care Management ---
Assessment Visit Type: Telephone Visit (08/09 Meño) Cardiac: WNL Except Cardiac Comment: 06/28 Reports hes managing CHF with lasix 2 tab in am and 1 in pm. Is taking his bp med bid. Cant wrap legs or use comp socks as his legs were too tender but, keeps them elevated above his heart when in his recliner 07/06 No edema, lasix continues. He is not taking any asprin. 07/13 states legs "not swollen" but wt increasing. taking lasix bid, cant wear comp socks, "skin sensitive to touch" too painful to place 07/21 denies edema, sob or wt gain 08/09 Denies CP. states LE bilaterily are still swollen, red and very sensitive to touch. Unable to weat HARDY hose. Respiratory: WNL Except Respiratory Comment: 06/28 Reports "I don't need it (oxygen)". Wears anywhere from 2-4 L when he does wear it. He states pox 86% on avg and instructed he should have it at 89 or more. Review se of low o2 could be SOB confusion. Is on adempas and the pharmacy has a person from [place] assess his bp prior to renewing or increasing dose. He notes prior bps were 140/80 but now 120/80 and was once 88/48 but no dizzyness. Instruct not to take with his magnesium. 07/06 Wears 2-4 L PRN, he tollerates longer periods without O2. Checks his O2 sats regularly, maintaining 89-91% on RA for extended periods. 07/14 sats 90% yest in clinic on 4 L; stress importance of wearing 24/7 and for helping PVD. denies sob, Enc cdb to prevent pneumonia 07/21 denies sob but act is still limited 08/09 uses O2 24/7. Had resp come and change out his tubing and mask and feels like he is breathing better. Still not able to do alot of activity but does walk around the apart some. GI: Nutrition: WNL Except GI Comment: 06/28 reports never liked much salt. primary fresh fruit and vegies. He only restricted fluids when his legs were edematous. Enc him to limit to 2L due to CHF dx. Not a smoker, Cant remember last etoh drink. Only a cup of coffee rarely. Little fat in diet 07/06 reinforced 2L fluid restriction. 2/6 c/o chronic constipation, review colace, miralaxand fiber. "Need to drink" whentold to restrict to 2 L a day 07/21 cont. to recommend 2 L restriction 08/09 went over low salt diet and 2L fluid restriction. Wt Gain/Loss: WNL Except Weight Comment: needs daily wt 07/06 He says his weights are doing "real good", but can't remember his last weight, that was a few days ago. I stressed the importance of daily weights. 07/14 reports up to 141 now . asked if it was water wt as lasix can only help with limited amount 08/09 does not weight daily but trys to wt ever other day and it has been staying the same but states if he starts to gain he will call Constipation?: No : WNFabrice Musculoskeletal, Exercise: WNL Except Musculoskeletal, Excercise Com: 06/28 with less pain states he can walk better/more. Enc to keep walking to improve circulation/pain 07/06 Increased foot pain, "feels like I am walking on gravel". Dr Yarbrough ordered a cream for this during his last visit, but he was unable to get it due to cost. 08/09 feet and legs remain very sensitive to touch or walking. Tries to walk around the apart some in order to get some exercise "my feet hurt like heck--no words to explain how they hurt"- Mobility/Falls: WNL Except Mobility Comment: 07/06 He can only walk short distances due to foot pain. 07/14 reports he lost his balance and fell at home. has stairs to climb and his legs buckle if he has to carry something. Knows exercises he can do in his chair to help maintain strength andmobility. enc to do them or return to PT. Integumentary: WNL Except Integumentary Comment: 06/28 states "I cut the aspirin out 2-3 weeks ago...just experimenting" States he took it for years but quit because his legs beneath the knees bilat had pain, redness, drainage, edema and arms were black and blue. All symptons have been improving since quitting ASA. Asked if he thinks the duloxetine and hydroxyzine have helped and may be the reason his sx have improved. REcomended he ask Dr before quitting any med and that he ask him if he should resume since he has had stents in the past and that ASA was supposed to prevent platelets from clogging his stents. Has appt with Dr Reese for allergy testing 07/13 07/06 Left leg wound, [facility] is discharging him, and he dosn't know how this wound will get cared for. 07/14 saw ENT yesterday who is getting f/u on a biopsy, will return on 07/21 07/21 ENT Hugh told him he had 100's allergies and will start shots 1-2 x a week. states leg wound cont. to get better and no s/s infection Feeling of Well Being: WNL Except Feeling of Well Being Comment: 06/28 felt bad after going to [facility]. Lost his job. Now is a "shut in" but he can drive now. 07/06 "I can't walk or work, medical costs are going up, I guess I'll live until I run out of money." 07/14 reports cant afford $200 copay for newlyrica. States "tired of living like this" and "this isn't living". will trylyrica 07/21 pain is better and sounds more energetic Socialization: WNL Except Socialization Comment: 07/06 Not getting out of his house. Pain/Management: WNL Except Pain/Management Comment: 06/28 improving in legs with duloxetine and stopping his ASA about the same time 07/06 Unable to walk more than about 50 ft due to pain in his feet. "I feel like I am walking on gravel." He was unable to fill a script for a cream to help with this. 07/14 has new rx for percocet bid. enc to keep legs elevated 07/21 pain better and able to walk more Scheduled Follow-Up with Provi: Yes (Dr Yarbrough 07/09) Community Resources/HHC: 06/28 states Eliane from [facility] pharmacy visits him for adempas refill and to increasing dose .5mg each refill. 07/06 [facility] discharged him. 07/14 sees Zenon in 2 wk. His nurse to make f/u with cardio and pulm Questions for Future PCP Visit: 06/28 Has stopped ASA on his own. Should he resume? Duloxetine started about the same time and symptoms have improved, should it be continued? Is it safe to go without O2 prn thru the day? He reports lowered bp and edema with adempas use. Insomnia? 07/06 Need for anticoagulation? Neuropathy pain in his feet? 07/14 PT for weakness and fall? Ability to pay $200 copay for lyrica. Pt states he "needs to drink " but is on 2 L fluid restriction for CHF; please clarify with pt. f/u for statement that "I'm tired of living like this". Referral to [place] specialist in [place] for a laser treatment? TCM Discharge Criteria Medication Knowledge: 06/28 review some meds with him and he knows names and doses 07/21 states hes taking b vit and that may be why legs are feeling better, also taking lyrica and percocet. keeps med list up to date with ea md visit Disease Management/Concern/Wha: CHF Red/Yellow Flags: 08/09 went over the red and yellow flags of CHF Transitional Care Comment: 06/28 Refererd to TCN due to frequency in ER. He reports feeling better since his return from [place]. Only wearing O2 prn days and at hs. "I just turn it on to 2,3,4, I don't know the difference, and breathe". REeports leg redness, edema and scales have diminished by stopping his ASA. Enc him to discuss this with MD before self medicating as his stent is at risk of clogging. Will need reminding to limit fluids, wt q day and CHF sx to monitor and report. Agree to f/u next week 07/06 He is less mobile, due to pain. Wears O2 PRN, sats 89-91 RA. He is not taking ASA, I explained the risks. I encouraged daily weights, 2L fluid restriction. He has an appt with Dr Yarbrough on Wednesday, I encouraged him to ask about the ASA, Medications for his peripheral neuropathies. 07/21 Enc him to communicate to MD's his addition of vitamins or change to other meds. Rash being addressed by MD and leg pain better. more active and feels better. will f/u in 2 weeks 08/03, Unable to contact 08/09 States he is doing'OK" has alot of trouble getting around. His ex- sets up his meds and "by mistake got an extra lasix in his pill box" enc him to look at his pills and make sure he is taking what he needs to at that time. Not able to get out of the house much as ex- is busy and she has been helping him out alot. "Not sure if this is much of a life." Copies to: ELIS YARBROUGH MD, JOAN Aug 09, 2017 14:27
[2017-08-10] MEDS ORDERED: TRIA15OI20 TP (16:18)
[2017-08-12] MEDS ORDERED: CLOB15OI16 TP (11:18)
[2017-08-13] MEDS ORDERED: PREG150C33 PO (11:41)
[2017-08-16] MEDS ORDERED: DULO60CA56 PO (11:37)
[2017-08-17] MEDS ORDERED: HEPA40VI2 IM (10:00)
--- NOTE | 2017-08-17 11:56 | Transitional Care Management ---
Assessment Visit Type: Telephone Visit Spoke with: Meño Cardiac: WNL Except Cardiac Comment: 06/28 Reports hes managing CHF with lasix 2 tab in am and 1 in pm. Is taking his bp med bid. Ulices wrap legs or use comp socks as his legs were too tender but, keeps them elevated above his heart when in his recliner 07/06 No edema, lasix continues. He is not taking any asprin. 07/13 states legs "not swollen" but wt increasing. taking lasix bid, ulices wear comp socks, "skin sensitive to touch" too painful to place 07/21 denies edema, sob or wt gain 08/09 Denies CP. states LE bilaterily are still swollen, red and very sensitive to touch. Unable to weat HARDY hose. 08/17 Best day since my shelter" No edema and able to wear socks and shoes. Taking lasix 40 bid Respiratory: WNL Except Respiratory Comment: 06/28 Reports "I don't need it (oxygen)". Wears anywhere from 2-4 L when he does wear it. He states pox 86% on avg and instructed he should have it at 89 or more. Review se of low o2 could be SOB confusion. Is on adempas and the pharmacy has a person from [place] assess his bp prior to renewing or increasing dose. He notes prior bps were 140/80 but now 120/80 and was once 88/48 but no dizzyness. Instruct not to take with his magnesium. 07/06 Wears 2-4 L PRN, he tollerates longer periods without O2. Checks his O2 sats regularly, maintaining 89-91% on RA for extended periods. 07/14 sats 90% yest in clinic on 4 L; stress importance of wearing 24/7 and for helping PVD. denies sob, Enc cdb to prevent pneumonia 07/21 denies sob but act is still limited 08/09 uses O2 24/7. Had resp come and change out his tubing and mask and feels like he is breathing better. Still not able to do alot of activity but does walk around the apart some. 08/17 WEaring O2 most of time now as he was recently to ER with AMS without his O2. states "I learned my lesson the hard way". Denies SOB, cough GI: Nutrition: WNL Except GI Comment: 06/28 reports never liked much salt. primary fresh fruit and vegies. He only restricted fluids when his legs were edematous. Enc him to limit to 2L due to CHF dx. Not a smoker, Cant remember last etoh drink. Only a cup of coffee rarely. Little fat in diet 07/06 reinforced 2L fluid restriction. 07/13 c/o chronic constipation, review colace, miralaxand fiber. "Need to drink" whentold to restrict to 2 L a day 07/21 cont. to recommend 2 L restriction 08/09 went over low salt diet and 2L fluid restriction. 08/17 no constip with iron, actually getting looseer and back to nromal Wt Gain/Loss: WNL Except Weight Comment: needs daily wt 07/06 He says his weights are doing "real good", but can't remember his last weight, that was a few days ago. I stressed the importance of daily weights. 07/14 reports up to 141 now . asked if it was water wt as lasix can only help with limited amount 08/09 does not weight daily but trys to wt ever other day and it has been staying the same but states if he starts to gain he will call 08/17 wt was 133 when he was sick but is trying to gain wt and is now 142; denies it is fluid wt as he has no edema or SOB Constipation?: No : WNL Musculoskeletal, Exercise: WNL Except Musculoskeletal, Excercise Com: 06/28 with less pain states he can walk better/more. Enc to keep walking to improve circulation/pain 07/06 Increased foot pain, "feels like I am walking on gravel". Dr Yarbrough ordered a cream for this during his last visit, but he was unable to get it due to cost. 08/09 feet and legs remain very sensitive to touch or walking. Tries to walk around the apart some in order to get some exercise "my feet hurt like heck--no words to explain how they hurt"- 08/17 taking lyrica now too and able to walk with less pain. has PT from [facility] Mobility/Falls: WNL Except Mobility Comment: 07/06 He can only walk short distances due to foot pain. 07/14 reports he lost his balance and fell at home. has stairs to climb and his legs buckle if he has to carry something. Knows exercises he can do in his chair to help maintain strength andmobility. enc to do them or return to PT. 08/17 trying to use a cane more Integumentary: WNL Except Integumentary Comment: 06/28 states "I cut the aspirin out 2-3 weeks ago...just experimenting" States he took it for years but quit because his legs beneath the knees bilat had pain, redness, drainage, edema and arms were black and blue. All symptons have been improving since quitting ASA. Asked if he thinks the duloxetine and hydroxyzine have helped and may be the reason his sx have improved. REcomended he ask Dr before quitting any med and that he ask him if he should resume since he has had stents in the past and that ASA was supposed to prevent platelets from clogging his stents. Has appt with Dr Reese for allergy testing 07/13 07/06 Left leg wound, [facility] is discharging him, and he dosn't know how this wound will get cared for. 07/14 saw ENT yesterday who is getting f/u on a biopsy, will return on 07/21 07/21 KOBI Reese told him he had 100's allergies and will start shots 1-2 x a week. states leg wound cont. to get better and no s/s infection 08/17 saw randy Gill, and started new lina that is helpin a lot; his sores are healing now Feeling of Well Being: WNL Except Feeling of Well Being Comment: 06/28 felt bad after going to [facility]. Lost his job. Now is a "shut in" but he can drive now. 07/06 "I can't walk or work, medical costs are going up, I guess I'll live until I run out of money." 07/14 reports cant afford $200 copay for newlyrica. States "tired of living like this" and "this isn't living". will trylyrica 07/21 pain is better and sounds more energetic 08/17 Cutting his hair today and this is his best day since Mar. Less pain and more mobility. states salvador made him get a life alert button and he is wearing it now Socialization: WNL Except Socialization Comment: 07/06 Not getting out of his house. Pain/Management: WNL Except Pain/Management Comment: 06/28 improving in legs with duloxetine and stopping his ASA about the same time 07/06 Unable to walk more than about 50 ft due to pain in his feet. "I feel like I am walking on gravel." He was unable to fill a script for a cream to help with this. 07/14 has new rx for percocet bid. enc to keep legs elevated 07/21 pain better and able to walk more 08/17 better today with lyrica routinely Scheduled Follow-Up with Provi: Yes (Dr Yarbrough 07/09) Community Resources/HHC: 06/28 states Eliane from [facility] pharmacy visits him for adempas refill and to increasing dose .5mg each refill. 07/06 [facility] discharged him. 07/14 sees Zenon in 2 wk. His nurse to make f/u with cardio and pulm 08/17 states he has appt today Questions for Future PCP Visit: 06/28 Has stopped ASA on his own. Should he resume? Duloxetine started about the same time and symptoms have improved, should it be continued? Is it safe to go without O2 prn thru the day? He reports lowered bp and edema with adempas use. Insomnia? 07/06 Need for anticoagulation? Neuropathy pain in his feet? 07/14 PT for weakness and fall? Ability to pay $200 copay for lyrica. Pt states he "needs to drink " but is on 2 L fluid restriction for CHF; please clarify with pt. f/u for statement that "I'm tired of living like this". Referral to [place] specialist in PVD for a laser treatment? TCM Discharge Criteria Medication Knowledge: 06/28 review some meds with him and he knows names and doses 07/21 states hes taking b vit and that may be why legs are feeling better, also taking lyrica and percocet. keeps med list up to date with danny md visit Disease Management/Concern/Wha: CHF Red/Yellow Flags: 08/09 went over the red and yellow flags of CHF Transitional Care Comment: 06/28 Refererd to TCN due to frequency in ER. He reports feeling better since his return from [place]. Only wearing O2 prn days and at hs. "I just turn it on to 2,3,4, I don't know the difference, and breathe". REeports leg redness, edema and scales have diminished by stopping his ASA. Enc him to discuss this with MD before self medicating as his stent is at risk of clogging. Will need reminding to limit fluids, wt q day and CHF sx to monitor and report. Agree to f/u next week 07/06 He is less mobile, due to pain. Wears O2 PRN, sats 89-91 RA. He is not taking ASA, I explained the risks. I encouraged daily weights, 2L fluid restriction. He has an appt with Dr Yarbrough on Wednesday, I encouraged him to ask about the ASA, Medications for his peripheral neuropathies. 07/21 Enc him to communicate to MD's his addition of vitamins or change to other meds. Rash being addressed by MD and leg pain better. more active and feels better. will f/u in 2 weeks 08/03, Unable to contact 08/09 States he is doing'OK" has alot of trouble getting around. His ex- sets up his meds and "by mistake got an extra lasix in his pill box" enc him to look at his pills and make sure he is taking what he needs to at that time. Not able to get out of the house much as ex- is busy and she has been helping him out alot. "Not sure if this is much of a life." 08/17 feels like this is his best day in a long time. Pain is manageable now,skin ulcers are healing. he has had f/u with PCP, derm and sees pulm today. able to be more active and eat and wear shoes. states wound on his leg is almost healed. he is aware of his balance problem and is more careful with mobility andgoes slower . agree to f/u in 2 week SKIP TAM Aug 17, 2017 11:56
[2017-08-30] MEDS ORDERED: PNEI IJ (09:54)
--- NOTE | 2017-09-02 16:19 | Transitional Care Management ---
Assessment Cardiac: WNL Except Cardiac Comment: 06/28 Reports hes managing CHF with lasix 2 tab in am and 1 in pm. Is taking his bp med bid. Ulices wrap legs or use comp socks as his legs were too tender but, keeps them elevated above his heart when in his recliner 07/06 No edema, lasix continues. He is not taking any asprin. 07/13 states legs "not swollen" but wt increasing. taking lasix bid, ulices wear comp socks, "skin sensitive to touch" too painful to place 07/21 denies edema, sob or wt gain 08/09 Denies CP. states LE bilaterily are still swollen, red and very sensitive to touch. Unable to weat HARDY hose. 08/17 Best day since my fdc" No edema and able to wear socks and shoes. Taking lasix 40 bid Respiratory: WNL Except Respiratory Comment: 06/28 Reports "I don't need it (oxygen)". Wears anywhere from 2-4 L when he does wear it. He states pox 86% on avg and instructed he should have it at 89 or more. Review se of low o2 could be SOB confusion. Is on adempas and the pharmacy has a person from [place] assess his bp prior to renewing or increasing dose. He notes prior bps were 140/80 but now 120/80 and was once 88/48 but no dizzyness. Instruct not to take with his magnesium. 07/06 Wears 2-4 L PRN, he tollerates longer periods without O2. Checks his O2 sats regularly, maintaining 89-91% on RA for extended periods. 07/14 sats 90% yest in clinic on 4 L; stress importance of wearing 24/7 and for helping PVD. denies sob, Enc cdb to prevent pneumonia 07/21 denies sob but act is still limited 08/09 uses O2 24/7. Had resp come and change out his tubing and mask and feels like he is breathing better. Still not able to do alot of activity but does walk around the apart some. 08/17 WEaring O2 most of time now as he was recently to ER with AMS without his O2. states "I learned my lesson the hard way". Denies SOB, cough GI: Nutrition: WNL Except GI Comment: 06/28 reports never liked much salt. primary fresh fruit and vegies. He only restricted fluids when his legs were edematous. Enc him to limit to 2L due to CHF dx. Not a smoker, Cant remember last etoh drink. Only a cup of coffee rarely. Little fat in diet 07/06 reinforced 2L fluid restriction. 07/13 c/o chronic constipation, review colace, miralaxand fiber. "Need to drink" whentold to restrict to 2 L a day 07/21 cont. to recommend 2 L restriction 08/09 went over low salt diet and 2L fluid restriction. 08/17 no constip with iron, actually getting looseer and back to nromal Wt Gain/Loss: WNL Except Weight Comment: needs daily wt 07/06 He says his weights are doing "real good", but can't remember his last weight, that was a few days ago. I stressed the importance of daily weights. 07/14 reports up to 141 now . asked if it was water wt as lasix can only help with limited amount 08/09 does not weight daily but trys to wt ever other day and it has been staying the same but states if he starts to gain he will call . 08/17 wt was 133 when he was sick but is trying to gain wt and is now 142; denies it is fluid wt as he has no edema or SOB Constipation?: No : WNL Musculoskeletal, Exercise: WNL Except Musculoskeletal, Excercise Com: 06/28 with less pain states he can walk better/more. Enc to keep walking to improve circulation/pain 07/06 Increased foot pain, "feels like I am walking on gravel". Dr Yarbrough ordered a cream for this during his last visit, but he was unable to get it due to cost. 08/09 feet and legs remain very sensitive to touch or walking. Tries to walk around the apart some in order to get some exercise "my feet hurt like heck--no words to explain how they hurt"- 08/17 taking lyrica now too and able to walk with less pain. has PT from [facility] Mobility/Falls: WNL Except Mobility Comment: 07/06 He can only walk short distances due to foot pain. 07/14 reports he lost his balance and fell at home. has stairs to climb and his legs buckle if he has to carry something. Knows exercises he can do in his chair to help maintain strength andmobility. enc to do them or return to PT. 08/17 trying to use a cane more Integumentary: WNL Except Integumentary Comment: 06/28 states "I cut the aspirin out 2-3 weeks ago...just experimenting" States he took it for years but quit because his legs beneath the knees bilat had pain, redness, drainage, edema and arms were black and blue. All symptons have been improving since quitting ASA. Asked if he thinks the duloxetine and hydroxyzine have helped and may be the reason his sx have improved. REcomended he ask Dr before quitting any med and that he ask him if he should resume since he has had stents in the past and that ASA was supposed to prevent platelets from clogging his stents. Has appt with Dr Reese for allergy testing 07/13 07/06 Left leg wound, [facility] is discharging him, and he dosn't know how this wound will get cared for. 07/14 saw ENT yesterday who is getting f/u on a biopsy, will return on 07/21 07/21 KOBI Reese told him he had 100's allergies and will start shots 1-2 x a week. states leg wound cont. to get better and no s/s infection 08/17 saw randy Gill, and started new lina that is helpin a lot; his sores are healing now Feeling of Well Being: WNL Except Feeling of Well Being Comment: 06/28 felt bad after going to [facility]. Lost his job. Now is a "shut in" but he can drive now. 07/06 "I can't walk or work, medical costs are going up, I guess I'll live until I run out of money." 07/14 reports cant afford $200 copay for newlyrica. States "tired of living like this" and "this isn't living". will trylyrica 07/21 pain is better and sounds more energetic 08/17 Cutting his hair today and this is his best day since Mar. Less pain and more mobility. states aslvador made him get a life alert button and he is wearing it now Socialization: WNL Except Socialization Comment: 07/06 Not getting out of his house. Pain/Management: WNL Except Pain/Management Comment: 06/28 improving in legs with duloxetine and stopping his ASA about the same time 07/06 Unable to walk more than about 50 ft due to pain in his feet. "I feel like I am walking on gravel." He was unable to fill a script for a cream to help with this. 07/14 has new rx for percocet bid. enc to keep legs elevated 07/21 pain better and able to walk more 08/17 better today with lyrica routinely Scheduled Follow-Up with [facility]: Yes (Dr Yarbrough 07/09) Community Resources/C: 06/28 states Eliane from [facility] pharmacy visits him for adempas refill and to increasing dose .5mg each refill. 07/06 [facility] discharged him. 07/14 sees Zenon in 2 wk. His nurse to make f/u with cardio and pulm 08/17 states he has appt today Questions for Future PCP Visit: 06/28 Has stopped ASA on his own. Should he resume? Duloxetine started about the same time and symptoms have improved, should it be continued? Is it safe to go without O2 prn thru the day? He reports lowered bp and edema with adempas use. Insomnia? 07/06 Need for anticoagulation? Neuropathy pain in his feet? 07/14 PT for weakness and fall? Ability to pay $200 copay for lyrica. Pt states he "needs to drink " but is on 2 L fluid restriction for CHF; please clarify with pt. f/u for statement that "I'm tired of living like this". Referral to [place] specialist in [place] for a laser treatment? TCM Discharge Criteria Medication Knowledge: 06/28 review some meds with him and he knows names and doses 07/21 states hes taking b vit and that may be why legs are feeling better, also taking lyrica and percocet. keeps med list up to date with ea md visit Disease Management/Concern/Wha: CHF Red/Yellow Flags: 08/09 went over the red and yellow flags of CHF Transitional Care Comment: 06/28 Refererd to TCN due to frequency in ER. He reports feeling better since his return from [place]. Only wearing O2 prn days and at hs. "I just turn it on to 2,3,4, I don't know the difference, and breathe". REeports leg redness, edema and scales have diminished by stopping his ASA. Enc him to discuss this with MD before self medicating as his stent is at risk of clogging. Will need reminding to limit fluids, wt q day and CHF sx to monitor and report. Agree to f/u next week 07/06 He is less mobile, due to pain. Wears O2 PRN, sats 89-91 RA. He is not taking ASA, I explained the risks. I encouraged daily weights, 2L fluid restriction. He has an appt with Dr Yarbrough on Wednesday, I encouraged him to ask about the ASA, Medications for his peripheral neuropathies. 07/21 Enc him to communicate to MD's his addition of vitamins or change to other meds. Rash being addressed by MD and leg pain better. more active and feels better. will f/u in 2 weeks Unable to contact 08/09 States he is doing'OK" has alot of trouble getting around. His ex- sets up his meds and "by mistake got an extra lasix in his pill box" enc him to look at his pills and make sure he is taking what he needs to at that time. Not able to get out of the house much as ex- is busy and she has been helping him out alot. "Not sure if this is much of a life." 08/17 feels like this is his best day in a long time. Pain is manageable now,skin ulcers are healing. he has had f/u with PCP, derm and sees pulm today. able to be more active and eat and wear shoes. states wound on his leg is almost healed. he is aware of his balance problem and is more careful with mobility andgoes slower . agree to f/u in 2 week 08/30 unable to contact. 09/02 Left message. DEYSI DOOLEY Sep 02, 2017 16:19
--- NOTE | 2017-09-09 13:50 | Transitional Care Management ---
Assessment Visit Type: Telephone Visit Spoke with: Meño Cardiac: WNL Except Cardiac Comment: 06/28 Reports hes managing CHF with lasix 2 tab in am and 1 in pm. Is taking his bp med bid. Ulices wrap legs or use comp socks as his legs were too tender but, keeps them elevated above his heart when in his recliner 07/06 No edema, lasix continues. He is not taking any asprin. 07/13 states legs "not swollen" but wt increasing. taking lasix bid, cant wear comp socks, "skin sensitive to touch" too painful to place 07/21 denies edema, sob or wt gain 08/09 Denies CP. states LE bilaterily are still swollen, red and very sensitive to touch. Unable to weat HARDY hose. 08/17 Best day since my mcc" No edema and able to wear socks and shoes. Taking lasix 40 bid 09/09 A little bit of edema in his feet/lower legs. Respiratory: WNL Except Respiratory Comment: 06/28 Reports "I don't need it (oxygen)". Wears anywhere from 2-4 L when he does wear it. He states pox 86% on avg and instructed he should have it at 89 or more. Review se of low o2 could be SOB confusion. Is on adempas and the pharmacy has a person from [place] assess his bp prior to renewing or increasing dose. He notes prior bps were 140/80 but now 120/80 and was once 88/48 but no dizzyness. Instruct not to take with his magnesium. 07/06 Wears 2-4 L PRN, he tollerates longer periods without O2. Checks his O2 sats regularly, maintaining 89-91% on RA for extended periods. 07/14 sats 90% yest in clinic on 4 L; stress importance of wearing 24/7 and for helping PVD. denies sob, Enc cdb to prevent pneumonia 07/21 denies sob but act is still limited 08/09 uses O2 24/7. Had resp come and change out his tubing and mask and feels like he is breathing better. Still not able to do alot of activity but does walk around the apart some. 08/17 WEaring O2 most of time now as he was recently to ER with AMS without his O2. states "I learned my lesson the hard way". Denies SOB, cough GI: Nutrition: WNL Except GI Comment: 06/28 reports never liked much salt. primary fresh fruit and vegies. He only restricted fluids when his legs were edematous. Enc him to limit to 2L due to CHF dx. Not a smoker, Cant remember last etoh drink. Only a cup of coffee rarely. Little fat in diet 07/06 reinforced 2L fluid restriction. 07/13 c/o chronic constipation, review colace, miralaxand fiber. "Need to drink" whentold to restrict to 2 L a day 07/21 cont. to recommend 2 L restriction 08/09 went over low salt diet and 2L fluid restriction. 08/17 no constip with iron, actually getting looseer and back to nromal 09/09 Reinforced fluid restriction. "I cut back on my fluids when my legs begin to swell." Wt Gain/Loss: WNL Except Weight Comment: needs daily wt 07/06 He says his weights are doing "real good", but can't remember his last weight, that was a few days ago. I stressed the importance of daily weights. 07/14 reports up to 141 now . asked if it was water wt as lasix can only help with limited amount 08/09 does not weight daily but trys to wt ever other day and it has been staying the same but states if he starts to gain he will call 08/17 wt was 133 when he was sick but is trying to gain wt and is now 142; denies it is fluid wt as he has no edema or SOB 09/09 He has not weighed recently. I explained the importance of daily weights. Constipation?: No : WNL Musculoskeletal, Exercise: WNL Except Musculoskeletal, Excercise Com: 06/28 with less pain states he can walk better/more. Enc to keep walking to improve circulation/pain 07/06 Increased foot pain, "feels like I am walking on gravel". Dr Yarbrough ordered a cream for this during his last visit, but he was unable to get it due to cost. 08/09 feet and legs remain very sensitive to touch or walking. Tries to walk around the apart some in order to get some exercise "my feet hurt like heck--no words to explain how they hurt"- 08/17 taking lyrica now too and able to walk with less pain. has PT from [facility] 09/09 He can only be on his feet for about ten minutes due to neuropathy pain. Mobility/Falls: WNL Except Mobility Comment: 07/06 He can only walk short distances due to foot pain. 07/14 reports he lost his balance and fell at home. has stairs to climb and his legs buckle if he has to carry something. Knows exercises he can do in his chair to help maintain strength andmobility. enc to do them or return to PT. 08/17 trying to use a cane more Integumentary: WNL Except Integumentary Comment: 06/28 states "I cut the aspirin out 2-3 weeks ago...just experimenting" States he took it for years but quit because his legs beneath the knees bilat had pain, redness, drainage, edema and arms were black and blue. All symptons have been improving since quitting ASA. Asked if he thinks the duloxetine and hydroxyzine have helped and may be the reason his sx have improved. REcomended he ask Dr before quitting any med and that he ask him if he should resume since he has had stents in the past and that ASA was supposed to prevent platelets from clogging his stents. Has appt with Dr Reese for allergy testing 07/13 07/06 Left leg wound, [facility] is discharging him, and he dosn't know how this wound will get cared for. 07/14 saw ENT yesterday who is getting f/u on a biopsy, will return on 07/21 07/21 KOBI Reese told him he had 100's allergies and will start shots 1-2 x a week. states leg wound cont. to get better and no s/s infection 08/17 saw randy Gill, and started new lina that is helpin a lot; his sores are healing now Feeling of Well Being: WNL Except Feeling of Well Being Comment: 06/28 felt bad after going to [facility]. Lost his job. Now is a "shut in" but he can drive now. 07/06 "I can't walk or work, medical costs are going up, I guess I'll live until I run out of money." 07/14 reports cant afford $200 copay for newlyrica. States "tired of living like this" and "this isn't living". will trylyrica 07/21 pain is better and sounds more energetic 08/17 Cutting his hair today and this is his best day since Mar. Less pain and more mobility. states salvador made him get a life alert button and he is wearing it now 09/09 "All I do is sit and look out the window. I'm single, don't have any family, and don't really have any reason to want to go on." Socialization: WNL Except Socialization Comment: 07/06 Not getting out of his house. Pain/Management: WNL Except Pain/Management Comment: 06/28 improving in legs with duloxetine and stopping his ASA about the same time 07/06 Unable to walk more than about 50 ft due to pain in his feet. "I feel like I am walking on gravel." He was unable to fill a script for a cream to help with this. 07/14 has new rx for percocet bid. enc to keep legs elevated 07/21 pain better and able to walk more 08/17 better today with lyrica routinely 09/09 Neuropathy pain is worse, limiting mobility. Scheduled Follow-Up with Seani: Yes (09/[address] Smith tomorrow.) Community Resources/HHC: 06/28 states Eliane from [facility] pharmacy visits him for adempas refill and to increasing dose .5mg each refill. 07/06 [facility] discharged him. 07/14 sees Zenon in 2 wk. His nurse to make f/u with cardio and pulm 08/17 states he has appt today Questions for Future PCP Visit: 06/28 Has stopped ASA on his own. Should he resume? Duloxetine started about the same time and symptoms have improved, should it be continued? Is it safe to go without O2 prn thru the day? He reports lowered bp and edema with adempas use. Insomnia? 07/06 Need for anticoagulation? Neuropathy pain in his feet? 07/14 PT for weakness and fall? Ability to pay $200 copay for lyrica. Pt states he "needs to drink " but is on 2 L fluid restriction for CHF; please clarify with pt. f/u for statement that "I'm tired of living like this". Referral to [place] specialist in [place] for a laser treatment? 4/5 Poor neuropathy pain control. Depression? TCM Discharge Criteria Medication Knowledge: 06/28 review some meds with him and he knows names and doses 07/21 states hes taking b vit and that may be why legs are feeling better, also taking lyrica and percocet. keeps med list up to date with danny md visit Disease Management/Concern/Wha: CHF Red/Yellow Flags: 08/09 went over the red and yellow flags of CHF Transitional Care Comment: 06/28 Refererd to TCN due to frequency in ER. He reports feeling better since his return from [place]. Only wearing O2 prn days and at hs. "I just turn it on to 2,3,4, I don't know the difference, and breathe". REeports leg redness, edema and scales have diminished by stopping his ASA. Enc him to discuss this with MD before self medicating as his stent is at risk of clogging. Will need reminding to limit fluids, wt q day and CHF sx to monitor and report. Agree to f/u next week 07/06 He is less mobile, due to pain. Wears O2 PRN, sats 89-91 RA. He is not taking ASA, I explained the risks. I encouraged daily weights, 2L fluid restriction. He has an appt with Dr Yarbrough on Wednesday, I encouraged him to ask about the ASA, Medications for his peripheral neuropathies. 07/21 Enc him to communicate to MD's his addition of vitamins or change to other meds. Rash being addressed by MD and leg pain better. more active and feels better. will f/u in 2 weeks 08/03, Unable to contact 08/09 States he is doing'OK" has alot of trouble getting around. His ex- sets up his meds and "by mistake got an extra lasix in his pill box" enc him to look at his pills and make sure he is taking what he needs to at that time. Not able to get out of the house much as ex- is busy and she has been helping him out alot. "Not sure if this is much of a life." 08/17 feels like this is his best day in a long time. Pain is manageable now,skin ulcers are healing. he has had f/u with PCP, derm and sees pulm today. able to be more active and eat and wear shoes. states wound on his leg is almost healed. he is aware of his balance problem and is more careful with mobility andgoes slower . agree to f/u in 2 week 08/30 unable to contact. 09/02 Left message. / Neuropathy pain is worse, mild swelling to lower extremeties. The Drs at [place] told him he has Multiple Myeloma, he has an appt with Dr Smith tomorrow. He may be depressed. Copies to: DARON NAYAK MD; ELIS YARBROUGH MD, MICHAEL K Sep 09, 2017 13:50
--- NOTE | 2017-09-18 16:14 | Transitional Care Management ---
Assessment Cardiac: WNL Except Cardiac Comment: 06/28 Reports hes managing CHF with lasix 2 tab in am and 1 in pm. Is taking his bp med bid. Ulices wrap legs or use comp socks as his legs were too tender but, keeps them elevated above his heart when in his recliner 07/06 No edema, lasix continues. He is not taking any asprin. 07/13 states legs "not swollen" but wt increasing. taking lasix bid, ulices wear comp socks, "skin sensitive to touch" too painful to place 07/21 denies edema, sob or wt gain 08/09 Denies CP. states LE bilaterily are still swollen, red and very sensitive to touch. Unable to weat HARDY hose. 08/17 Best day since my senior living" No edema and able to wear socks and shoes. Taking lasix 40 bid 09/09 A little bit of edema in his feet/lower legs. Respiratory: WNL Except Respiratory Comment: 06/28 Reports "I don't need it (oxygen)". Wears anywhere from 2-4 L when he does wear it. He states pox 86% on avg and instructed he should have it at 89 or more. Review se of low o2 could be SOB confusion. Is on adempas and the pharmacy has a person from [place] assess his bp prior to renewing or increasing dose. He notes prior bps were 140/80 but now 120/80 and was once 88/48 but no dizzyness. Instruct not to take with his magnesium. 07/06 Wears 2-4 L PRN, he tollerates longer periods without O2. Checks his O2 sats regularly, maintaining 89-91% on RA for extended periods. 07/14 sats 90% yest in clinic on 4 L; stress importance of wearing 24/7 and for helping PVD. denies sob, Enc cdb to prevent pneumonia 07/21 denies sob but act is still limited 08/09 uses O2 24/7. Had resp come and change out his tubing and mask and feels like he is breathing better. Still not able to do alot of activity but does walk around the apart some. 08/17 WEaring O2 most of time now as he was recently to ER with AMS without his O2. states "I learned my lesson the hard way". Denies SOB, cough GI: Nutrition: WNL Except GI Comment: 06/28 reports never liked much salt. primary fresh fruit and vegies. He only restricted fluids when his legs were edematous. Enc him to limit to 2L due to CHF dx. Not a smoker, Cant remember last etoh drink. Only a cup of coffee rarely. Little fat in diet 07/06 reinforced 2L fluid restriction. 07/13 c/o chronic constipation, review colace, miralaxand fiber. "Need to drink" whentold to restrict to 2 L a day 07/21 cont. to recommend 2 L restriction 08/09 went over low salt diet and 2L fluid restriction. 08/17 no constip with iron, actually getting looseer and back to nromal 09/09 Reinforced fluid restriction. "I cut back on my fluids when my legs begin to swell." Wt Gain/Loss: WNL Except Weight Comment: needs daily wt 07/06 He says his weights are doing "real good", but can't remember his last weight, that was a few days ago. I stressed the importance of daily weights. 07/14 reports up to 141 now . asked if it was water wt as lasix can only help with limited amount 08/09 does not weight daily but trys to wt ever other day and it has been staying the same but states if he starts to gain he will call 08/17 wt was 133 when he was sick but is trying to gain wt and is now 142; denies it is fluid wt as he has no edema or SOB 09/09 He has not weighed recently. I explained the importance of daily weights. Constipation?: No : WNL Musculoskeletal, Exercise: WNL Except Musculoskeletal, Excercise Com: 06/28 with less pain states he can walk better/more. Enc to keep walking to improve circulation/pain 07/06 Increased foot pain, "feels like I am walking on gravel". Dr Yarbrough ordered a cream for this during his last visit, but he was unable to get it due to cost. 08/09 feet and legs remain very sensitive to touch or walking. Tries to walk around the apart some in order to get some exercise "my feet hurt like heck--no words to explain how they hurt"- 08/17 taking lyrica now too and able to walk with less pain. has PT from [facility] 09/09 He can only be on his feet for about ten minutes due to neuropathy pain. Mobility/Falls: WNL Except Mobility Comment: 07/06 He can only walk short distances due to foot pain. 07/14 reports he lost his balance and fell at home. has stairs to climb and his legs buckle if he has to carry something. Knows exercises he can do in his chair to help maintain strength andmobility. enc to do them or return to PT. 08/17 trying to use a cane more Integumentary: WNL Except Integumentary Comment: 06/28 states "I cut the aspirin out 2-3 weeks ago...just experimenting" States he took it for years but quit because his legs beneath the knees bilat had pain, redness, drainage, edema and arms were black and blue. All symptons have been improving since quitting ASA. Asked if he thinks the duloxetine and hydroxyzine have helped and may be the reason his sx have improved. REcomended he ask Dr before quitting any med and that he ask him if he should resume since he has had stents in the past and that ASA was supposed to prevent platelets from clogging his stents. Has appt with Dr Reese for allergy testing 07/13 07/06 Left leg wound, [facility] is discharging him, and he dosn't know how this wound will get cared for. 07/14 saw ENT yesterday who is getting f/u on a biopsy, will return on 07/21 07/21 KOBI Reese told him he had 100's allergies and will start shots 1-2 x a week. states leg wound cont. to get better and no s/s infection 08/17 saw randy Gill, and started new lina that is helpin a lot; his sores are healing now Feeling of Well Being: WNL Except Feeling of Well Being Comment: 06/28 felt bad after going to [facility]. Lost his job. Now is a "shut in" but he can drive now. 07/06 "I can't walk or work, medical costs are going up, I guess I'll live until I run out of money." 07/14 reports cant afford $200 copay for newlyrica. States "tired of living like this" and "this isn't living". will trylyrica 07/21 pain is better and sounds more energetic 08/17 Cutting his hair today and this is his best day since Mar. Less pain and more mobility. states salvador made him get a life alert button and he is wearing it now 09/09 "All I do is sit and look out the window. I'm single, don't have any family, and don't really have any reason to want to go on." Socialization: WNL Except Socialization Comment: 07/06 Not getting out of his house. Pain/Management: WNL Except Pain/Management Comment: 06/28 improving in legs with duloxetine and stopping his ASA about the same time 07/06 Unable to walk more than about 50 ft due to pain in his feet. "I feel like I am walking on gravel." He was unable to fill a script for a cream to help with this. 07/14 has new rx for percocet bid. enc to keep legs elevated 07/21 pain better and able to walk more 08/17 better today with lyrica routinely 09/09 Neuropathy pain is worse, limiting mobility. Scheduled Follow-Up with Provi: Yes (09/[address] Smith tomorrow.) Community Resources/HHC: 06/28 states Eliane from [facility] pharmacy visits him for adempas refill and to increasing dose .5mg each refill. 07/06 [facility] discharged him. 07/14 sees Zenon in 2 wk. His nurse to make f/u with cardio and pulm 08/17 states he has appt today Questions for Future PCP Visit: 06/28 Has stopped ASA on his own. Should he resume? Duloxetine started about the same time and symptoms have improved, should it be continued? Is it safe to go without O2 prn thru the day? He reports lowered bp and edema with adempas use. Insomnia? 07/06 Need for anticoagulation? Neuropathy pain in his feet? 07/14 PT for weakness and fall? Ability to pay $200 copay for lyrica. Pt states he "needs to drink " but is on 2 L fluid restriction for CHF; please clarify with pt. f/u for statement that "I'm tired of living like this". Referral to [place] specialist in [place] for a laser treatment? 4/5 Poor neuropathy pain control. Depression? TCM Discharge Criteria Medication Knowledge: 06/28 review some meds with him and he knows names and doses 07/21 states hes taking b vit and that may be why legs are feeling better, also taking lyrica and percocet. keeps med list up to date with ea md visit Disease Management/Concern/Wha: CHF Red/Yellow Flags: 08/09 went over the red and yellow flags of CHF Transitional Care Comment: 06/28 Refererd to TCN due to frequency in ER. He reports feeling better since his return from [place]. Only wearing O2 prn days and at hs. "I just turn it on to 2,3,4, I don't know the difference, and breathe". REeports leg redness, edema and scales have diminished by stopping his ASA. Enc him to discuss this with MD before self medicating as his stent is at risk of clogging. Will need reminding to limit fluids, wt q day and CHF sx to monitor and report. Agree to f/u next week 07/06 He is less mobile, due to pain. Wears O2 PRN, sats 89-91 RA. He is not taking ASA, I explained the risks. I encouraged daily weights, 2L fluid restriction. He has an appt with Dr Yarbrough on Wednesday, I encouraged him to ask about the ASA, Medications for his peripheral neuropathies. 07/21 Enc him to communicate to MD's his addition of vitamins or change to other meds. Rash being addressed by MD and leg pain better. more active and feels better. will f/u in 2 weeks Unable to contact 08/09 States he is doing'OK" has alot of trouble getting around. His ex- sets up his meds and "by mistake got an extra lasix in his pill box" enc him to look at his pills and make sure he is taking what he needs to at that time. Not able to get out of the house much as ex- is busy and she has been helping him out alot. "Not sure if this is much of a life." 08/17 feels like this is his best day in a long time. Pain is manageable now,skin ulcers are healing. he has had f/u with PCP, derm and sees pulm today. able to be more active and eat and wear shoes. states wound on his leg is almost healed. he is aware of his balance problem and is more careful with mobility andgoes slower . agree to f/u in 2 week 08/30 unable to contact. 09/02 Left message. 09/09 Neuropathy pain is worse, mild swelling to lower extremeties. The Drs at [place] told him he has Multiple Myeloma, he has an appt with Dr Smith tomorrow. He may be depressed. 09/13 unable to contact 09/16 unable to contact 09/18 unable to contact. DEYSI DOOLEY Sep 18, 2017 16:14
--- NOTE | 2017-09-20 15:00 | Transitional Care Management ---
Assessment Visit Type: Telephone Visit Spoke with: Meño Cardiac: WNL Except Cardiac Comment: 06/28 Reports hes managing CHF with lasix 2 tab in am and 1 in pm. Is taking his bp med bid. Ulices wrap legs or use comp socks as his legs were too tender but, keeps them elevated above his heart when in his recliner 07/06 No edema, lasix continues. He is not taking any asprin. 07/13 states legs "not swollen" but wt increasing. taking lasix bid, cant wear comp socks, "skin sensitive to touch" too painful to place 07/21 denies edema, sob or wt gain 08/09 Denies CP. states LE bilaterily are still swollen, red and very sensitive to touch. Unable to weat HARDY hose. 08/17 Best day since my long term" No edema and able to wear socks and shoes. Taking lasix 40 bid 09/09 A little bit of edema in his feet/lower legs. Respiratory: WNL Except Respiratory Comment: 06/28 Reports "I don't need it (oxygen)". Wears anywhere from 2-4 L when he does wear it. He states pox 86% on avg and instructed he should have it at 89 or more. Review se of low o2 could be SOB confusion. Is on adempas and the pharmacy has a person from [place] assess his bp prior to renewing or increasing dose. He notes prior bps were 140/80 but now 120/80 and was once 88/48 but no dizzyness. Instruct not to take with his magnesium. 07/06 Wears 2-4 L PRN, he tollerates longer periods without O2. Checks his O2 sats regularly, maintaining 89-91% on RA for extended periods. 07/14 sats 90% yest in clinic on 4 L; stress importance of wearing 24/7 and for helping PVD. denies sob, Enc cdb to prevent pneumonia 07/21 denies sob but act is still limited 08/09 uses O2 24/7. Had resp come and change out his tubing and mask and feels like he is breathing better. Still not able to do alot of activity but does walk around the apart some. 08/17 WEaring O2 most of time now as he was recently to ER with AMS without his O2. states "I learned my lesson the hard way". Denies SOB, cough GI: Nutrition: WNL Except GI Comment: 06/28 reports never liked much salt. primary fresh fruit and vegies. He only restricted fluids when his legs were edematous. Enc him to limit to 2L due to CHF dx. Not a smoker, Cant remember last etoh drink. Only a cup of coffee rarely. Little fat in diet 07/06 reinforced 2L fluid restriction. 07/13 c/o chronic constipation, review colace, miralaxand fiber. "Need to drink" whentold to restrict to 2 L a day 07/21 cont. to recommend 2 L restriction 08/09 went over low salt diet and 2L fluid restriction. 08/17 no constip with iron, actually getting looseer and back to nromal 09/09 Reinforced fluid restriction. "I cut back on my fluids when my legs begin to swell." Wt Gain/Loss: WNL Except Weight Comment: needs daily wt 07/06 He says his weights are doing "real good", but can't remember his last weight, that was a few days ago. I stressed the importance of daily weights. 07/14 reports up to 141 now . asked if it was water wt as lasix can only help with limited amount 08/09 does not weight daily but trys to wt ever other day and it has been staying the same but states if he starts to gain he will call 08/17 wt was 133 when he was sick but is trying to gain wt and is now 142; denies it is fluid wt as he has no edema or SOB 09/09 He has not weighed recently. I explained the importance of daily weights. Constipation?: No : WNL Musculoskeletal, Exercise: WNL Except Musculoskeletal, Excercise Com: 06/28 with less pain states he can walk better/more. Enc to keep walking to improve circulation/pain 07/06 Increased foot pain, "feels like I am walking on gravel". Dr Yarbrough ordered a cream for this during his last visit, but he was unable to get it due to cost. 08/09 feet and legs remain very sensitive to touch or walking. Tries to walk around the apart some in order to get some exercise "my feet hurt like heck--no words to explain how they hurt"- 08/17 taking lyrica now too and able to walk with less pain. has PT from [facility] 09/09 He can only be on his feet for about ten minutes due to neuropathy pain. Mobility/Falls: WNL Except Mobility Comment: 07/06 He can only walk short distances due to foot pain. 07/14 reports he lost his balance and fell at home. has stairs to climb and his legs buckle if he has to carry something. Knows exercises he can do in his chair to help maintain strength andmobility. enc to do them or return to PT. 08/17 trying to use a cane more 09/20 He had a "arthritis flare up"' and spent last week in bed. Currently at his baseline. Integumentary: WNL Except Integumentary Comment: 06/28 states "I cut the aspirin out 2-3 weeks ago...just experimenting" States he took it for years but quit because his legs beneath the knees bilat had pain, redness, drainage, edema and arms were black and blue. All symptons have been improving since quitting ASA. Asked if he thinks the duloxetine and hydroxyzine have helped and may be the reason his sx have improved. REcomended he ask Dr before quitting any med and that he ask him if he should resume since he has had stents in the past and that ASA was supposed to prevent platelets from clogging his stents. Has appt with Dr Reese for allergy testing 07/13 07/06 Left leg wound, [facility] is discharging him, and he dosn't know how this wound will get cared for. 07/14 saw ENT yesterday who is getting f/u on a biopsy, will return on 07/21 07/21 KOBI Reese told him he had 100's allergies and will start shots 1-2 x a week. states leg wound cont. to get better and no s/s infection 08/17 saw Maru Lou derm, and started new lina that is helpin a lot; his sores are healing now Feeling of Well Being: WNL Except Feeling of Well Being Comment: 06/28 felt bad after going to [facility]. Lost his job. Now is a "shut in" but he can drive now. 07/06 "I can't walk or work, medical costs are going up, I guess I'll live until I run out of money." 07/14 reports cant afford $200 copay for newlyrica. States "tired of living like this" and "this isn't living". will trylyrica 07/21 pain is better and sounds more energetic 08/17 Cutting his hair today and this is his best day since Mar. Less pain and more mobility. states salvador made him get a life alert button and he is wearing it now 09/09 "All I do is sit and look out the window. I'm single, don't have any family, and don't really have any reason to want to go on." 09/20 He is less depressed than 09/09, but stated, "Nobody calls to check on me." Socialization: WNL Except Socialization Comment: 07/06 Not getting out of his house. Pain/Management: WNL Except Pain/Management Comment: 06/28 improving in legs with duloxetine and stopping his ASA about the same time 07/06 Unable to walk more than about 50 ft due to pain in his feet. "I feel like I am walking on gravel." He was unable to fill a script for a cream to help with this. 07/14 has new rx for percocet bid. enc to keep legs elevated 07/21 pain better and able to walk more 08/17 better today with lyrica routinely 09/09 Neuropathy pain is worse, limiting mobility. 09/20 decreased neuropthy pain. Scheduled Follow-Up with Provi: Yes (09/[address] Smith 09/30) Community Resources/HHC: 06/28 states Eliane from [facility] pharmacy visits him for adempas refill and to increasing dose .5mg each refill. 07/06 [facility] discharged him. 07/14 sees Zenon in 2 wk. His nurse to make f/u with cardio and pulm 08/17 states he has appt today Questions for Future PCP Visit: 06/28 Has stopped ASA on his own. Should he resume? Duloxetine started about the same time and symptoms have improved, should it be continued? Is it safe to go without O2 prn thru the day? He reports lowered bp and edema with adempas use. Insomnia? 07/06 Need for anticoagulation? Neuropathy pain in his feet? 07/14 PT for weakness and fall? Ability to pay $200 copay for lyrica. Pt states he "needs to drink " but is on 2 L fluid restriction for CHF; please clarify with pt. f/u for statement that "I'm tired of living like this". Referral to [place] specialist in [place] for a laser treatment? 4/5 Poor neuropathy pain control. Depression? TCM Discharge Criteria Medication Knowledge: 06/28 review some meds with him and he knows names and doses 07/21 states hes taking b vit and that may be why legs are feeling better, also taking lyrica and percocet. keeps med list up to date with danny md visit Disease Management/Concern/Wha: CHF Red/Yellow Flags: 08/09 went over the red and yellow flags of CHF Transitional Care Comment: 06/28 Refererd to TCN due to frequency in ER. He reports feeling better since his return from [place]. Only wearing O2 prn days and at hs. "I just turn it on to 2,3,4, I don't know the difference, and breathe". REeports leg redness, edema and scales have diminished by stopping his ASA. Enc him to discuss this with MD before self medicating as his stent is at risk of clogging. Will need reminding to limit fluids, wt q day and CHF sx to monitor and report. Agree to f/u next week 07/06 He is less mobile, due to pain. Wears O2 PRN, sats 89-91 RA. He is not taking ASA, I explained the risks. I encouraged daily weights, 2L fluid restriction. He has an appt with Dr Yarbrough on Wednesday, I encouraged him to ask about the ASA, Medications for his peripheral neuropathies. 07/21 Enc him to communicate to MD's his addition of vitamins or change to other meds. Rash being addressed by MD and leg pain better. more active and feels better. will f/u in 2 weeks 08/03, Unable to contact 08/09 States he is doing'OK" has alot of trouble getting around. His ex- sets up his meds and "by mistake got an extra lasix in his pill box" enc him to look at his pills and make sure he is taking what he needs to at that time. Not able to get out of the house much as ex- is busy and she has been helping him out alot. "Not sure if this is much of a life." 08/17 feels like this is his best day in a long time. Pain is manageable now,skin ulcers are healing. he has had f/u with PCP, derm and sees pulm today. able to be more active and eat and wear shoes. states wound on his leg is almost healed. he is aware of his balance problem and is more careful with mobility andgoes slower . agree to f/u in 2 week 08/30 unable to contact. 09/02 Left message. 09/09 Neuropathy pain is worse, mild swelling to lower extremeties. The Drs at [place] told him he has Multiple Myeloma, he has an appt with Dr Smith tomorrow. He may be depressed. 09/13 unable to contact 09/16 unable to contact 09/18 unable to contact. 09/20He could not get out of bed last week due to "an arthritis flare up," he had to reschedule his appt with Luis for 09/30. He is debating about making an appt with Dr Huston. DEYSI DOOLEY Sep 20, 2017 15:00
--- NOTE | 2017-10-04 14:08 | Transitional Care Management ---
Assessment Visit Type: Telephone Visit (10/04 DEEPAKradhasun) Cardiac: WNL Except Cardiac Comment: 06/28 Reports hes managing CHF with lasix 2 tab in am and 1 in pm. Is taking his bp med bid. Cant wrap legs or use comp socks as his legs were too tender but, keeps them elevated above his heart when in his recliner 07/06 No edema, lasix continues. He is not taking any asprin. 07/13 states legs "not swollen" but wt increasing. taking lasix bid, cant wear comp socks, "skin sensitive to touch" too painful to place 07/21 denies edema, sob or wt gain 08/09 Denies CP. states LE bilaterily are still swollen, red and very sensitive to touch. Unable to weat HARDY hose. 08/17 Best day since my usp" No edema and able to wear socks and shoes. Taking lasix 40 bid 09/09 A little bit of edema in his feet/lower legs. 10/04 States legs-swelling and cellulitis doing better "able to walk" Respiratory: WNL Except Respiratory Comment: 06/28 Reports "I don't need it (oxygen)". Wears anywhere from 2-4 L when he does wear it. He states pox 86% on avg and instructed he should have it at 89 or more. Review se of low o2 could be SOB confusion. Is on adempas and the pharmacy has a person from [place] assess his bp prior to renewing or increasing dose. He notes prior bps were 140/80 but now 120/80 and was once 88/48 but no dizzyness. Instruct not to take with his magnesium. 07/06 Wears 2-4 L PRN, he tollerates longer periods without O2. Checks his O2 sats regularly, maintaining 89-91% on RA for extended periods. 07/14 sats 90% yest in clinic on 4 L; stress importance of wearing 24/7 and for helping PVD. denies sob, Enc cdb to prevent pneumonia 07/21 denies sob but act is still limited 08/09 uses O2 24/7. Had resp come and change out his tubing and mask and feels like he is breathing better. Still not able to do alot of activity but does walk around the apart some. 08/17 WEaring O2 most of time now as he was recently to ER with AMS without his O2. states "I learned my lesson the hard way". Denies SOB, cough 10/04 Wears O2 at all times. Enc to be aware of tubing GI: Nutrition: WNL Except GI Comment: 06/28 reports never liked much salt. primary fresh fruit and vegies. He only restricted fluids when his legs were edematous. Enc him to limit to 2L due to CHF dx. Not a smoker, Cant remember last etoh drink. Only a cup of coffee rarely. Little fat in diet 07/06 reinforced 2L fluid restriction. 07/13 c/o chronic constipation, review colace, miralaxand fiber. "Need to drink" whentold to restrict to 2 L a day 07/21 cont. to recommend 2 L restriction 08/09 went over low salt diet and 2L fluid restriction. 08/17 no constip with iron, actually getting looseer and back to nromal 09/09 Reinforced fluid restriction. "I cut back on my fluids when my legs begin to swell." Wt Gain/Loss: WNL Except Weight Comment: needs daily wt 07/06 He says his weights are doing "real good", but can't remember his last weight, that was a few days ago. I stressed the importance of daily weights. 07/14 reports up to 141 now . asked if it was water wt as lasix can only help with limited amount 08/09 does not weight daily but trys to wt ever other day and it has been staying the same but states if he starts to gain he will call . 08/17 wt was 133 when he was sick but is trying to gain wt and is now 142; denies it is fluid wt as he has no edema or SOB 09/09 He has not weighed recently. I explained the importance of daily weights. 10/04 still does not Wt. Repeated the importance Constipation?: No : WNL Musculoskeletal, Exercise: WNL Except Musculoskeletal, Excercise Com: 06/28 with less pain states he can walk better/more. Enc to keep walking to improve circulation/pain 07/06 Increased foot pain, "feels like I am walking on gravel". Dr Yarbrough ordered a cream for this during his last visit, but he was unable to get it due to cost. 08/09 feet and legs remain very sensitive to touch or walking. Tries to walk around the apart some in order to get some exercise "my feet hurt like heck--no words to explain how they hurt"- 08/17 taking lyrica now too and able to walk with less pain. has PT from [facility] 09/09 He can only be on his feet for about ten minutes due to neuropathy pain. 10/04 states the pain is improved and he is walking more since the swelling in legs have gone down. Mobility/Falls: WNL Except Mobility Comment: 07/06 He can only walk short distances due to foot pain. 07/14 reports he lost his balance and fell at home. has stairs to climb and his legs buckle if he has to carry something. Knows exercises he can do in his chair to help maintain strength andmobility. enc to do them or return to PT. 08/17 trying to use a cane more 09/20 He had a "arthritis flare up"' and spent last week in bed. Currently at his baseline. Integumentary: WNL Except Integumentary Comment: 06/28 states "I cut the aspirin out 2-3 weeks ago...just experimenting" States he took it for years but quit because his legs beneath the knees bilat had pain, redness, drainage, edema and arms were black and blue. All symptons have been improving since quitting ASA. Asked if he thinks the duloxetine and hydroxyzine have helped and may be the reason his sx have improved. REcomended he ask Dr before quitting any med and that he ask him if he should resume since he has had stents in the past and that ASA was supposed to prevent platelets from clogging his stents. Has appt with Dr Reese for allergy testing 07/13 07/06 Left leg wound, [facility] is discharging him, and he dosn't know how this wound will get cared for. 07/14 saw ENT yesterday who is getting f/u on a biopsy, will return on 07/21 07/21 KOBI Reese told him he had 100's allergies and will start shots 1-2 x a week. states leg wound cont. to get better and no s/s infection 08/17 saw Maru Lou, derm, and started new lina that is helpin a lot; his sores are healing now Feeling of Well Being: WNL Except Feeling of Well Being Comment: 06/28 felt bad after going to [facility]. Lost his job. Now is a "shut in" but he can drive now. 07/06 "I can't walk or work, medical costs are going up, I guess I'll live until I run out of money." 07/14 reports cant afford $200 copay for newlyrica. States "tired of living like this" and "this isn't living". will trylyrica 07/21 pain is better and sounds more energetic 08/17 Cutting his hair today and this is his best day since Mar. Less pain and more mobility. states salvador made him get a life alert button and he is wearing it now 09/09 "All I do is sit and look out the window. I'm single, don't have any family, and don't really have any reason to want to go on." 09/20 He is less depressed than 09/09, but stated, "Nobody calls to check on me." Socialization: WNL Except Socialization Comment: 07/06 Not getting out of his house. Pain/Management: WNL Except Pain/Management Comment: 06/28 improving in legs with duloxetine and stopping his ASA about the same time 07/06 Unable to walk more than about 50 ft due to pain in his feet. "I feel like I am walking on gravel." He was unable to fill a script for a cream to help with this. 07/14 has new rx for percocet bid. enc to keep legs elevated 07/21 pain better and able to walk more 08/17 better today with lyrica routinely 09/09 Neuropathy pain is worse, limiting mobility. 09/20 decreased neuropthy pain. Scheduled Follow-Up with Seani: Yes (09/[address] Smith 09/30) Community Resources/HHC: 06/28 states Eliane from [facility] pharmacy visits him for adempas refill and to increasing dose .5mg each refill. 07/06 [facility] discharged him. 07/14 sees [facility] in 2 wk. His nurse to make f/u with cardio and pulm 08/17 states he has appt today 10/04 going to change DrsJulienne from [facility] to Dr. Arana has an appt w her this week Questions for Future PCP Visit: 06/28 Has stopped ASA on his own. Should he resume? Duloxetine started about the same time and symptoms have improved, should it be continued? Is it safe to go without O2 prn thru the day? He reports lowered bp and edema with adempas use. Insomnia? 07/06 Need for anticoagulation? Neuropathy pain in his feet? 07/14 PT for weakness and fall? Ability to pay $200 copay for lyrica. Pt states he "needs to drink " but is on 2 L fluid restriction for CHF; please clarify with pt. f/u for statement that "I'm tired of living like this". Referral to [place] specialist in PVD for a laser treatment? 09/09 Poor neuropathy pain control. Depression? TCM Discharge Criteria Medication Knowledge: 06/28 review some meds with him and he knows names and doses 07/21 states hes taking b vit and that may be why legs are feeling better, also taking lyrica and percocet. keeps med list up to date with ea md visit Disease Management/Concern/Wha: CHF Red/Yellow Flags: 08/09 went over the red and yellow flags of CHF Transitional Care Comment: 06/28 Refererd to [facility] due to frequency in ER. He reports feeling better since his return from [place]. Only wearing O2 prn days and at hs. "I just turn it on to 2,3,4, I don't know the difference, and breathe". REeports leg redness, edema and scales have diminished by stopping his ASA. Enc him to discuss this with MD before self medicating as his stent is at risk of clogging. Will need reminding to limit fluids, wt q day and CHF sx to monitor and report. Agree to f/u next week 07/06 He is less mobile, due to pain. Wears O2 PRN, sats 89-91 RA. He is not taking ASA, I explained the risks. I encouraged daily weights, 2L fluid restriction. He has an appt with Dr Yarbrough on Wednesday, I encouraged him to ask about the ASA, Medications for his peripheral neuropathies. 07/21 Enc him to communicate to MD's his addition of vitamins or change to other meds. Rash being addressed by MD and leg pain better. more active and feels better. will f/u in 2 weeks 08/03, Unable to contact 08/09 States he is doing'OK" has alot of trouble getting around. His ex- sets up his meds and "by mistake got an extra lasix in his pill box" enc him to look at his pills and make sure he is taking what he needs to at that time. Not able to get out of the house much as ex- is busy and she has been helping him out alot. "Not sure if this is much of a life." 08/17 feels like this is his best day in a long time. Pain is manageable now,skin ulcers are healing. he has had f/u with PCP, derm and sees pulm today. able to be more active and eat and wear shoes. states wound on his leg is almost healed. he is aware of his balance problem and is more careful with mobility andgoes slower . agree to f/u in 2 week 08/30 unable to contact. 09/02 Left message. 09/09 Neuropathy pain is worse, mild swelling to lower extremeties. The Drs at [facility] told him he has Multiple Myeloma, he has an appt with Dr Smith tomorrow. He may be depressed. 09/13 unable to contact 09/16 unable to contact 09/18 unable to contact. 09/20He could not get out of bed last week due to "an arthritis flare up," he had to reschedule his appt with Luis for 09/30. He is debating about making an appt with Dr Huston. 10/02 unable to contact-left message. 10/04 Has an appt to see Dr Arana this week. He states he is feeling better and mentally improved since he is able to walk and get out of the home. He is driving but has several friends and his daughter checking on him. Legs better if he keeps them elevated while resting. [address] Oct 04, 2017 14:08
--- NOTE | 2017-10-12 13:48 | Transitional Care Management ---
Assessment Visit Type: Telephone Visit Spoke with: Meño Cardiac: WNL Except Cardiac Comment: 06/28 Reports hes managing CHF with lasix 2 tab in am and 1 in pm. Is taking his bp med bid. Ulices wrap legs or use comp socks as his legs were too tender but, keeps them elevated above his heart when in his recliner 07/06 No edema, lasix continues. He is not taking any asprin. 07/13 states legs "not swollen" but wt increasing. taking lasix bid, ulices wear comp socks, "skin sensitive to touch" too painful to place 07/21 denies edema, sob or wt gain 08/09 Denies CP. states LE bilaterily are still swollen, red and very sensitive to touch. Unable to weat HARDY hose. 08/17 Best day since my fpc" No edema and able to wear socks and shoes. Taking lasix 40 bid 09/09 A little bit of edema in his feet/lower legs. 10/04 States legs-swelling and cellulitis doing better "able to walk" 10/12 Reduced edema. Respiratory: WNL Except Respiratory Comment: 06/28 Reports "I don't need it (oxygen)". Wears anywhere from 2-4 L when he does wear it. He states pox 86% on avg and instructed he should have it at 89 or more. Review se of low o2 could be SOB confusion. Is on adempas and the pharmacy has a person from [place] assess his bp prior to renewing or increasing dose. He notes prior bps were 140/80 but now 120/80 and was once 88/48 but no dizzyness. Instruct not to take with his magnesium. 07/06 Wears 2-4 L PRN, he tollerates longer periods without O2. Checks his O2 sats regularly, maintaining 89-91% on RA for extended periods. 07/14 sats 90% yest in clinic on 4 L; stress importance of wearing 24/7 and for helping PVD. denies sob, Enc cdb to prevent pneumonia 07/21 denies sob but act is still limited 08/09 uses O2 24/7. Had resp come and change out his tubing and mask and feels like he is breathing better. Still not able to do alot of activity but does walk around the apart some. 08/17 WEaring O2 most of time now as he was recently to ER with AMS without his O2. states "I learned my lesson the hard way". Denies SOB, cough 10/04 Wears O2 at all times. Enc to be aware of tubing 10/12 Denies SOB GI: Nutrition: WNL Except GI Comment: 06/28 reports never liked much salt. primary fresh fruit and vegies. He only restricted fluids when his legs were edematous. Enc him to limit to 2L due to CHF dx. Not a smoker, Cant remember last etoh drink. Only a cup of coffee rarely. Little fat in diet 07/06 reinforced 2L fluid restriction. 07/13 c/o chronic constipation, review colace, miralaxand fiber. "Need to drink" whentold to restrict to 2 L a day 07/21 cont. to recommend 2 L restriction 08/09 went over low salt diet and 2L fluid restriction. 08/17 no constip with iron, actually getting looseer and back to nromal 09/09 Reinforced fluid restriction. "I cut back on my fluids when my legs begin to swell." Wt Gain/Loss: WNL Except Weight Comment: needs daily wt 07/06 He says his weights are doing "real good", but can't remember his last weight, that was a few days ago. I stressed the importance of daily weights. 07/14 reports up to 141 now . asked if it was water wt as lasix can only help with limited amount 08/09 does not weight daily but trys to wt ever other day and it has been staying the same but states if he starts to gain he will call 08/17 wt was 133 when he was sick but is trying to gain wt and is now 142; denies it is fluid wt as he has no edema or SOB 09/09 He has not weighed recently. I explained the importance of daily weights. 10/04 still does not Wt. Repeated the importance Constipation?: No : WNL Musculoskeletal, Exercise: WNL Except Musculoskeletal, Excercise Com: 06/28 with less pain states he can walk better/more. Enc to keep walking to improve circulation/pain 07/06 Increased foot pain, "feels like I am walking on gravel". Dr Yarbrough ordered a cream for this during his last visit, but he was unable to get it due to cost. 08/09 feet and legs remain very sensitive to touch or walking. Tries to walk around the apart some in order to get some exercise "my feet hurt like heck--no words to explain how they hurt"- 08/17 taking lyrica now too and able to walk with less pain. has PT from [facility] 09/09 He can only be on his feet for about ten minutes due to neuropathy pain. 10/04 states the pain is improved and he is walking more since the swelling in legs have gone down. 10/12 Reduced swelling and foot pain are allowing him to be more active, get out of the house. Mobility/Falls: WNL Except Mobility Comment: 07/06 He can only walk short distances due to foot pain. 07/14 reports he lost his balance and fell at home. has stairs to climb and his legs buckle if he has to carry something. Knows exercises he can do in his chair to help maintain strength andmobility. enc to do them or return to PT. 08/17 trying to use a cane more 09/20 He had an "arthritis flare up"' and spent last week in bed. Currently at his baseline. Integumentary: WNL Except Integumentary Comment: 06/28 states "I cut the aspirin out 2-3 weeks ago...just experimenting" States he took it for years but quit because his legs beneath the knees bilat had pain, redness, drainage, edema and arms were black and blue. All symptons have been improving since quitting ASA. Asked if he thinks the duloxetine and hydroxyzine have helped and may be the reason his sx have improved. REcomended he ask Dr before quitting any med and that he ask him if he should resume since he has had stents in the past and that ASA was supposed to prevent platelets from clogging his stents. Has appt with Dr Reese for allergy testing 07/13 07/06 Left leg wound, [facility] is discharging him, and he dosn't know how this wound will get cared for. 07/14 saw ENT yesterday who is getting f/u on a biopsy, will return on 07/21 07/21 KOBI Reese told him he had 100's allergies and will start shots 1-2 x a week. states leg wound cont. to get better and no s/s infection 08/17 saw Maru Lou, derm, and started new lina that is helpin a lot; his sores are healing now Feeling of Well Being: WNL Except Feeling of Well Being Comment: 06/28 felt bad after going to [facility]. Lost his job. Now is a "shut in" but he can drive now. 07/06 "I can't walk or work, medical costs are going up, I guess I'll live until I run out of money." 07/14 reports cant afford $200 copay for newlyrica. States "tired of living like this" and "this isn't living". will trylyrica 07/21 pain is better and sounds more energetic 08/17 Cutting his hair today and this is his best day since Mar. Less pain and more mobility. states salvador made him get a life alert button and he is wearing it now 09/09 "All I do is sit and look out the window. I'm single, don't have any family, and don't really have any reason to want to go on." 09/20 He is less depressed than 09/09, but stated, "Nobody calls to check on me." 10/12 He is in a good mood, feeling good about being able to be more active. Socialization: WNL Except Socialization Comment: 07/06 Not getting out of his house. 10/12 He is getting out of the house. Pain/Management: WNL Except Pain/Management Comment: 06/28 improving in legs with duloxetine and stopping his ASA about the same time 07/06 Unable to walk more than about 50 ft due to pain in his feet. "I feel like I am walking on gravel." He was unable to fill a script for a cream to help with this. 07/14 has new rx for percocet bid. enc to keep legs elevated 07/21 pain better and able to walk more 08/17 better today with lyrica routinely 09/09 Neuropathy pain is worse, limiting mobility. 09/20 decreased neuropthy pain. 10/12 minimal pain. Scheduled Follow-Up with Provi: Yes (10/[address] with Dr Tirado on 11/17) Community Resources/HHC: 06/28 states Eliane from [facility] pharmacy visits him for adempas refill and to increasing dose .5mg each refill. 07/06 [facility] discharged him. 07/14 sees [facility] in 2 wk. His nurse to make f/u with cardio and pulm 08/17 states he has appt today 10/04 going to change DrsJulienne from [facility] to Dr. Arana has an appt w her this week Questions for Future PCP Visit: 06/28 Has stopped ASA on his own. Should he resume? Duloxetine started about the same time and symptoms have improved, should it be continued? Is it safe to go without O2 prn thru the day? He reports lowered bp and edema with adempas use. Insomnia? 07/06 Need for anticoagulation? Neuropathy pain in his feet? 07/14 PT for weakness and fall? Ability to pay $200 copay for lyrica. Pt states he "needs to drink " but is on 2 L fluid restriction for CHF; please clarify with pt. f/u for statement that "I'm tired of living like this". Referral to [place] specialist in PVD for a laser treatment? 09/09 Poor neuropathy pain control. Depression? 10/12 Arthritis pain control. Following Discharge Instructio: Yes TCM Discharge Criteria Medication Knowledge: 06/28 review some meds with him and he knows names and doses 07/21 states hes taking b vit and that may be why legs are feeling better, also taking lyrica and percocet. keeps med list up to date with danny md visit Disease Management/Concern/Wha: CHF Red/Yellow Flags: 08/09 went over the red and yellow flags of CHF Transitional Care Comment: 06/28 Refererd to [facility] due to frequency in ER. He reports feeling better since his return from [place]. Only wearing O2 prn days and at hs. "I just turn it on to 2,3,4, I don't know the difference, and breathe". REeports leg redness, edema and scales have diminished by stopping his ASA. Enc him to discuss this with MD before self medicating as his stent is at risk of clogging. Will need reminding to limit fluids, wt q day and CHF sx to monitor and report. Agree to f/u next week 07/06 He is less mobile, due to pain. Wears O2 PRN, sats 89-91 RA. He is not taking ASA, I explained the risks. I encouraged daily weights, 2L fluid restriction. He has an appt with Dr Yarbrough on Wednesday, I encouraged him to ask about the ASA, Medications for his peripheral neuropathies. 07/21 Enc him to communicate to MD's his addition of vitamins or change to other meds. Rash being addressed by MD and leg pain better. more active and feels better. will f/u in 2 weeks Unable to contact 08/09 States he is doing'OK" has alot of trouble getting around. His ex- sets up his meds and "by mistake got an extra lasix in his pill box" enc him to look at his pills and make sure he is taking what he needs to at that time. Not able to get out of the house much as ex- is busy and she has been helping him out alot. "Not sure if this is much of a life." 08/17 feels like this is his best day in a long time. Pain is manageable now,skin ulcers are healing. he has had f/u with PCP, derm and sees pulm today. able to be more active and eat and wear shoes. states wound on his leg is almost healed. he is aware of his balance problem and is more careful with mobility andgoes slower . agree to f/u in 2 week 08/30 unable to contact. 09/02 Left message. 09/09 Neuropathy pain is worse, mild swelling to lower extremeties. The Drs at [place] told him he has Multiple Myeloma, he has an appt with Dr Smith tomorrow. He may be depressed. 09/13 unable to contact 09/16 unable to contact 09/18 unable to contact. 09/20He could not get out of bed last week due to "an arthritis flare up," he had to reschedule his appt with Luis for 09/30. He is debating about making an appt with Dr Huston. 10/02 unable to contact-left message. 10/04 Has an appt to see Dr Arana this week. He states he is feeling better and mentally improved since he is able to walk and get out of the home. He is driving but has several friends and his daughter checking on him. Legs better if he keeps them elevated while resting. 10/12 He is in good spirits, due to increased mobility allowed by decreased pain. He is working on cleaning out his house, and hopes to sell it, to relocating to a lower elevation, warmer climate. This winter was very hard on him emotionally, and he needs a climate that is more condusive to activity, and easier breathing. Copies to: ADY TIRADO MD, MICHAEL K October 12, 2017 13:48
[2017-10-20] MEDS ORDERED: FURO40TA35 PO (14:15)
--- NOTE | 2017-11-04 14:17 | Transitional Care Management ---
Assessment Cardiac: WNL Except Cardiac Comment: 06/28 Reports hes managing CHF with lasix 2 tab in am and 1 in pm. Is taking his bp med bid. Ulices wrap legs or use comp socks as his legs were too tender but, keeps them elevated above his heart when in his recliner 07/06 No edema, lasix continues. He is not taking any asprin. 07/13 states legs "not swollen" but wt increasing. taking lasix bid, ulices wear comp socks, "skin sensitive to touch" too painful to place 07/21 denies edema, sob or wt gain 08/09 Denies CP. states LE bilaterily are still swollen, red and very sensitive to touch. Unable to weat HARDY hose. 08/17 Best day since my alf" No edema and able to wear socks and shoes. Taking lasix 40 bid 09/09 A little bit of edema in his feet/lower legs. 10/04 States legs-swelling and cellulitis doing better "able to walk" 10/12 Reduced edema. Respiratory: WNL Except Respiratory Comment: 06/28 Reports "I don't need it (oxygen)". Wears anywhere from 2-4 L when he does wear it. He states pox 86% on avg and instructed he should have it at 89 or more. Review se of low o2 could be SOB confusion. Is on adempas and the pharmacy has a person from [place] assess his bp prior to renewing or increasing dose. He notes prior bps were 140/80 but now 120/80 and was once 88/48 but no dizzyness. Instruct not to take with his magnesium. 07/06 Wears 2-4 L PRN, he tollerates longer periods without O2. Checks his O2 sats regularly, maintaining 89-91% on RA for extended periods. 07/14 sats 90% yest in clinic on 4 L; stress importance of wearing 24/7 and for helping PVD. denies sob, Enc cdb to prevent pneumonia 07/21 denies sob but act is still limited 08/09 uses O2 24/7. Had resp come and change out his tubing and mask and feels like he is breathing better. Still not able to do alot of activity but does walk around the apart some. 08/17 WEaring O2 most of time now as he was recently to ER with AMS without his O2. states "I learned my lesson the hard way". Denies SOB, cough 10/04 Wears O2 at all times. Enc to be aware of tubing 10/12 Denies SOB GI: Nutrition: WNL Except GI Comment: 06/28 reports never liked much salt. primary fresh fruit and vegies. He only restricted fluids when his legs were edematous. Enc him to limit to 2L due to CHF dx. Not a smoker, Cant remember last etoh drink. Only a cup of coffee rarely. Little fat in diet 07/06 reinforced 2L fluid restriction. 07/13 c/o chronic constipation, review colace, miralaxand fiber. "Need to drink" whentold to restrict to 2 L a day 07/21 cont. to recommend 2 L restriction 08/09 went over low salt diet and 2L fluid restriction. 08/17 no constip with iron, actually getting looseer and back to nromal 09/09 Reinforced fluid restriction. "I cut back on my fluids when my legs begin to swell." Wt Gain/Loss: WNL Except Weight Comment: needs daily wt 07/06 He says his weights are doing "real good", but can't remember his last weight, that was a few days ago. I stressed the importance of daily weights. 07/14 reports up to 141 now . asked if it was water wt as lasix can only help with limited amount 08/09 does not weight daily but trys to wt ever other day and it has been staying the same but states if he starts to gain he will call 08/17 wt was 133 when he was sick but is trying to gain wt and is now 142; denies it is fluid wt as he has no edema or SOB 09/09 He has not weighed recently. I explained the importance of daily weights. 10/04 still does not Wt. Repeated the importance Constipation?: No : WNL Musculoskeletal, Exercise: WNL Except Musculoskeletal, Excercise Com: 06/28 with less pain states he can walk better/more. Enc to keep walking to improve circulation/pain 07/06 Increased foot pain, "feels like I am walking on gravel". Dr Yarbrough ordered a cream for this during his last visit, but he was unable to get it due to cost. 08/09 feet and legs remain very sensitive to touch or walking. Tries to walk around the apart some in order to get some exercise "my feet hurt like heck--no words to explain how they hurt"- 08/17 taking lyrica now too and able to walk with less pain. has PT from [facility] 09/09 He can only be on his feet for about ten minutes due to neuropathy pain. 10/04 states the pain is improved and he is walking more since the swelling in legs have gone down. 10/12 Reduced swelling and foot pain are allowing him to be more active, get out of the house. Mobility/Falls: WNL Except Mobility Comment: 07/06 He can only walk short distances due to foot pain. 07/14 reports he lost his balance and fell at home. has stairs to climb and his legs buckle if he has to carry something. Knows exercises he can do in his chair to help maintain strength andmobility. enc to do them or return to PT. 08/17 trying to use a cane more 09/20 He had an "arthritis flare up"' and spent last week in bed. Currently at his baseline. Integumentary: WNL Except Integumentary Comment: 06/28 states "I cut the aspirin out 2-3 weeks ago...just experimenting" States he took it for years but quit because his legs beneath the knees bilat had pain, redness, drainage, edema and arms were black and blue. All symptons have been improving since quitting ASA. Asked if he thinks the duloxetine and hydroxyzine have helped and may be the reason his sx have improved. REcomended he ask Dr before quitting any med and that he ask him if he should resume since he has had stents in the past and that ASA was supposed to prevent platelets from clogging his stents. Has appt with Dr Reese for allergy testing 07/13 07/06 Left leg wound, [facility] is discharging him, and he dosn't know how this wound will get cared for. 07/14 saw ENT yesterday who is getting f/u on a biopsy, will return on 07/21 07/21 KOBI Reese told him he had 100's allergies and will start shots 1-2 x a week. states leg wound cont. to get better and no s/s infection 08/17 saw Maru Lou, derm, and started new lina that is helpin a lot; his sores are healing now Feeling of Well Being: WNL Except Feeling of Well Being Comment: 06/28 felt bad after going to [facility]. Lost his job. Now is a "shut in" but he can drive now. 07/06 "I can't walk or work, medical costs are going up, I guess I'll live until I run out of money." 07/14 reports cant afford $200 copay for newlyrica. States "tired of living like this" and "this isn't living". will trylyrica 07/21 pain is better and sounds more energetic 08/17 Cutting his hair today and this is his best day since Mar. Less pain and more mobility. states salvador made him get a life alert button and he is wearing it now 09/09 "All I do is sit and look out the window. I'm single, don't have any family, and don't really have any reason to want to go on." 09/20 He is less depressed than 09/09, but stated, "Nobody calls to check on me." 10/12 He is in a good mood, feeling good about being able to be more active. Socialization: WNL Except Socialization Comment: 07/06 Not getting out of his house. 10/12 He is getting out of the house. Pain/Management: WNL Except Pain/Management Comment: 06/28 improving in legs with duloxetine and stopping his ASA about the same time 07/06 Unable to walk more than about 50 ft due to pain in his feet. "I feel like I am walking on gravel." He was unable to fill a script for a cream to help with this. 07/14 has new rx for percocet bid. enc to keep legs elevated 07/21 pain better and able to walk more 08/17 better today with lyrica routinely 09/09 Neuropathy pain is worse, limiting mobility. 09/20 decreased neuropthy pain. 10/12 minimal pain. Scheduled Follow-Up with Seani: Yes (10/[address] with Dr Baez on 11/17) Community Resources/HHC: 06/28 states Eliane from [facility] pharmacy visits him for adempas refill and to increasing dose .5mg each refill. 07/06 [facility] discharged him. 07/14 sees [facility] in 2 wk. His nurse to make f/u with cardio and pulm 08/17 states he has appt today 10/04 going to change DrsJulienne from [facility] to Dr. Arana has an appt w her this week Questions for Future PCP Visit: 06/28 Has stopped ASA on his own. Should he resume? Duloxetine started about the same time and symptoms have improved, should it be continued? Is it safe to go without O2 prn thru the day? He reports lowered bp and edema with adempas use. Insomnia? 07/06 Need for anticoagulation? Neuropathy pain in his feet? 07/14 PT for weakness and fall? Ability to pay $200 copay for lyrica. Pt states he "needs to drink " but is on 2 L fluid restriction for CHF; please clarify with pt. f/u for statement that "I'm tired of living like this". Referral to [place] specialist in PVD for a laser treatment? 09/09 Poor neuropathy pain control. Depression? 10/12 Arthritis pain control. Following Discharge Instructio: Yes TCM Discharge Criteria Medication Knowledge: 06/28 review some meds with him and he knows names and doses 07/21 states hes taking b vit and that may be why legs are feeling better, also taking lyrica and percocet. keeps med list up to date with danny md visit Disease Management/Concern/Wha: CHF Red/Yellow Flags: 08/09 went over the red and yellow flags of CHF Transitional Care Comment: 06/28 Refererd to [facility] due to frequency in ER. He reports feeling better since his return from [facility]. Only wearing O2 prn days and at hs. "I just turn it on to 2,3,4, I don't know the difference, and breathe". REeports leg redness, edema and scales have diminished by stopping his ASA. Enc him to discuss this with MD before self medicating as his stent is at risk of clogging. Will need reminding to limit fluids, wt q day and CHF sx to monitor and report. Agree to f/u next week 07/06 He is less mobile, due to pain. Wears O2 PRN, sats 89-91 RA. He is not taking ASA, I explained the risks. I encouraged daily weights, 2L fluid restriction. He has an appt with Dr Yarbrough on Wednesday, I encouraged him to ask about the ASA, Medications for his peripheral neuropathies. 07/21 Enc him to communicate to MD's his addition of vitamins or change to other meds. Rash being addressed by MD and leg pain better. more active and feels better. will f/u in 2 weeks Unable to contact 08/09 States he is doing'OK" has alot of trouble getting around. His ex- sets up his meds and "by mistake got an extra lasix in his pill box" enc him to look at his pills and make sure he is taking what he needs to at that time. Not able to get out of the house much as ex- is busy and she has been helping him out alot. "Not sure if this is much of a life." 08/17 feels like this is his best day in a long time. Pain is manageable now,skin ulcers are healing. he has had f/u with PCP, derm and sees pulm today. able to be more active and eat and wear shoes. states wound on his leg is almost healed. he is aware of his balance problem and is more careful with mobility andgoes slower . agree to f/u in 2 week 08/30 unable to contact. 09/02 Left message. 09/09 Neuropathy pain is worse, mild swelling to lower extremeties. The Drs at [facility] told him he has Multiple Myeloma, he has an appt with Dr Smith tomorrow. He may be depressed. 09/13 unable to contact 09/16 unable to contact 09/18 unable to contact. 09/20He could not get out of bed last week due to "an arthritis flare up," he had to reschedule his appt with Luis for 09/30. He is debating about making an appt with Dr Huston. 10/02 unable to contact-left message. 10/04 Has an appt to see Dr Arana this week. He states he is feeling better and mentally improved since he is able to walk and get out of the home. He is driving but has several friends and his daughter checking on him. Legs better if he keeps them elevated while resting. 10/12 He is in good spirits, due to increased mobility allowed by decreased pain. He is working on cleaning out his house, and hopes to sell it, to relocating to a lower elevation, warmer climate. This winter was very hard on him emotionally, and he needs a climate that is more condusive to activity, and easier breathing. 10/14 Meño was admitted to [facility]. 10/16 Transferred to [facility] for further cardic workup. 11/04 Saw him on ECF this morning, he was very drowsy, and had a hard time staying awake. We discussed his plan to return home and his ECF goals to get him there. DEYSI DOOLEY November 04, 2017 14:16
[2017-11-23] MEDS ORDERED: CLOP75TA PO (10:38)
[2017-11-23] MEDS ORDERED: DOXE10CA25 PO (10:38)
[2017-11-23] MEDS ORDERED: PANT40TA63 PO (10:49)
--- NOTE | 2017-11-24 10:55 | Transitional Care Management ---
Assessment Visit Type: Telephone Visit Spoke with: Meño Cardiac: WNL Except Cardiac Comment: 06/28 Reports hes managing CHF with lasix 2 tab in am and 1 in pm. Is taking his bp med bid. Ulices wrap legs or use comp socks as his legs were too tender but, keeps them elevated above his heart when in his recliner 07/06 No edema, lasix continues. He is not taking any asprin. 07/13 states legs "not swollen" but wt increasing. taking lasix bid, ulices wear comp socks, "skin sensitive to touch" too painful to place 07/21 denies edema, sob or wt gain 08/09 Denies CP. states LE bilaterily are still swollen, red and very sensitive to touch. Unable to weat HARDY hose. 08/17 Best day since my shelter" No edema and able to wear socks and shoes. Taking lasix 40 bid 09/09 A little bit of edema in his feet/lower legs. 10/04 States legs-swelling and cellulitis doing better "able to walk" 10/12 Reduced edema. Respiratory: WNL Except Respiratory Comment: 06/28 Reports "I don't need it (oxygen)". Wears anywhere from 2-4 L when he does wear it. He states pox 86% on avg and instructed he should have it at 89 or more. Review se of low o2 could be SOB confusion. Is on adempas and the pharmacy has a person from [place] assess his bp prior to renewing or increasing dose. He notes prior bps were 140/80 but now 120/80 and was once 88/48 but no dizzyness. Instruct not to take with his magnesium. 07/06 Wears 2-4 L PRN, he tollerates longer periods without O2. Checks his O2 sats regularly, maintaining 89-91% on RA for extended periods. 07/14 sats 90% yest in clinic on 4 L; stress importance of wearing 24/7 and for helping PVD. denies sob, Enc cdb to prevent pneumonia 07/21 denies sob but act is still limited 08/09 uses O2 24/7. Had resp come and change out his tubing and mask and feels like he is breathing better. Still not able to do alot of activity but does walk around the apart some. 08/17 WEaring O2 most of time now as he was recently to ER with AMS without his O2. states "I learned my lesson the hard way". Denies SOB, cough 10/04 Wears O2 at all times. Enc to be aware of tubing 10/12 Denies SOB 11/23 Wearing 4L O2. GI: Nutrition: WNL Except GI Comment: 06/28 reports never liked much salt. primary fresh fruit and vegies. He only restricted fluids when his legs were edematous. Enc him to limit to 2L due to CHF dx. Not a smoker, Cant remember last etoh drink. Only a cup of coffee rarely. Little fat in diet 07/06 reinforced 2L fluid restriction. 07/13 c/o chronic constipation, review colace, miralaxand fiber. "Need to drink" whentold to restrict to 2 L a day 07/21 cont. to recommend 2 L restriction 08/09 went over low salt diet and 2L fluid restriction. 08/17 no constip with iron, actually getting looseer and back to nromal 09/09 Reinforced fluid restriction. "I cut back on my fluids when my legs begin to swell." Wt Gain/Loss: WNL Except Weight Comment: needs daily wt 07/06 He says his weights are doing "real good", but can't remember his last weight, that was a few days ago. I stressed the importance of daily weights. 07/14 reports up to 141 now . asked if it was water wt as lasix can only help with limited amount 08/09 does not weight daily but trys to wt ever other day and it has been staying the same but states if he starts to gain he will call Dr. 08/17 wt was 133 when he was sick but is trying to gain wt and is now 142; denies it is fluid wt as he has no edema or SOB 09/09 He has not weighed recently. I explained the importance of daily weights. 10/04 still does not Wt. Repeated the importance Constipation?: No : WNL Musculoskeletal, Exercise: WNL Except Musculoskeletal, Excercise Com: 06/28 with less pain states he can walk better/more. Enc to keep walking to improve circulation/pain 07/06 Increased foot pain, "feels like I am walking on gravel". Dr Yarbrough ordered a cream for this during his last visit, but he was unable to get it due to cost. 08/09 feet and legs remain very sensitive to touch or walking. Tries to walk around the apart some in order to get some exercise "my feet hurt like heck--no words to explain how they hurt"- 08/17 taking lyrica now too and able to walk with less pain. has PT from [facility] 09/09 He can only be on his feet for about ten minutes due to neuropathy pain. 10/04 states the pain is improved and he is walking more since the swelling in legs have gone down. 10/12 Reduced swelling and foot pain are allowing him to be more active, get out of the house. 11/23 Foot pain continues, limiting activity. Mobility/Falls: WNL Except Mobility Comment: 07/06 He can only walk short distances due to foot pain. 07/14 reports he lost his balance and fell at home. has stairs to climb and his legs buckle if he has to carry something. Knows exercises he can do in his chair to help maintain strength andmobility. enc to do them or return to PT. 08/17 trying to use a cane more 09/20 He had an "arthritis flare up"' and spent last week in bed. Currently at his baseline. 11/23 Using a cane in his home, has not done much since getting home yesterday. Integumentary: WNL Except Integumentary Comment: 06/28 states "I cut the aspirin out 2-3 weeks ago...just experimenting" States he took it for years but quit because his legs beneath the knees bilat had pain, redness, drainage, edema and arms were black and blue. All symptons have been improving since quitting ASA. Asked if he thinks the duloxetine and hydroxyzine have helped and may be the reason his sx have improved. REcomended he ask Dr before quitting any med and that he ask him if he should resume since he has had stents in the past and that ASA was supposed to prevent platelets from clogging his stents. Has appt with Dr Reese for allergy testing 07/13 07/06 Left leg wound, [facility] is discharging him, and he dosn't know how this wound will get cared for. 07/14 saw ENT yesterday who is getting f/u on a biopsy, will return on 07/21 07/21 KOBI Reese told him he had 100's allergies and will start shots 1-2 x a week. states leg wound cont. to get better and no s/s infection 08/17 saw R Dasha, derm, and started new lina that is helpin a lot; his sores are healing now Feeling of Well Being: WNL Except Feeling of Well Being Comment: 06/28 felt bad after going to [facility]. Lost his job. Now is a "shut in" but he can drive now. 07/06 "I can't walk or work, medical costs are going up, I guess I'll live until I run out of money." 07/14 reports cant afford $200 copay for newlyrica. States "tired of living like this" and "this isn't living". will trylyrica 07/21 pain is better and sounds more energetic 08/17 Cutting his hair today and this is his best day since Mar. Less pain and more mobility. states salvador made him get a life alert button and he is wearing it now 09/09 "All I do is sit and look out the window. I'm single, don't have any family, and don't really have any reason to want to go on." 09/20 He is less depressed than 09/09, but stated, "Nobody calls to check on me." 10/12 He is in a good mood, feeling good about being able to be more active. 11/23 He feels good to be home, but is weary of doing very much. Socialization: WNL Except Socialization Comment: 07/06 Not getting out of his house. 10/12 He is getting out of the house. 11/23 Friends rthere to see him today. Pain/Management: WNL Except Pain/Management Comment: 06/28 improving in legs with duloxetine and stopping his ASA about the same time 07/06 Unable to walk more than about 50 ft due to pain in his feet. "I feel like I am walking on gravel." He was unable to fill a script for a cream to help with this. 07/14 has new rx for percocet bid. enc to keep legs elevated 07/21 pain better and able to walk more 08/17 better today with lyrica routinely 09/09 Neuropathy pain is worse, limiting mobility. 09/20 decreased neuropthy pain. 10/12 minimal pain. 11/23 Foot pain. Scheduled Follow-Up with Provi: Yes (11/[address] with Dr Tirado tomorrow) Community Resources/HHC: 06/28 states Eliane from [facility] pharmacy visits him for adempas refill and to increasing dose .5mg each refill. 07/06 [facility] discharged him. 07/14 sees [facility] in 2 wk. His nurse to make f/u with cardio and pulm 08/17 states he has appt today 10/04 going to change DrsJulienne from [facility] to Dr. Arana has an appt w her this week Questions for Future PCP Visit: 06/28 Has stopped ASA on his own. Should he resume? Duloxetine started about the same time and symptoms have improved, should it be continued? Is it safe to go without O2 prn thru the day? He reports lowered bp and edema with adempas use. Insomnia? 07/06 Need for anticoagulation? Neuropathy pain in his feet? 07/14 PT for weakness and fall? Ability to pay $200 copay for lyrica. Pt states he "needs to drink " but is on 2 L fluid restriction for CHF; please clarify with pt. f/u for statement that "I'm tired of living like this". Referral to [place] specialist in PVD for a laser treatment? 4/5 Poor neuropathy pain control. Depression? /8 Arthritis pain control. Following Discharge Instructio: Yes TCM Discharge Criteria Medication Knowledge: 06/28 review some meds with him and he knows names and doses 07/21 states hes taking b vit and that may be why legs are feeling better, also taking lyrica and percocet. keeps med list up to date with danny md visit Disease Management/Concern/Wha: CHF Red/Yellow Flags: 08/09 went over the red and yellow flags of CHF Transitional Care Comment: 06/28 Refererd to [facility] due to frequency in ER. He reports feeling better since his return from [place]. Only wearing O2 prn days and at hs. "I just turn it on to 2,3,4, I don't know the difference, and breathe". REeports leg redness, edema and scales have diminished by stopping his ASA. Enc him to discuss this with MD before self medicating as his stent is at risk of clogging. Will need reminding to limit fluids, wt q day and CHF sx to monitor and report. Agree to f/u next week 07/06 He is less mobile, due to pain. Wears O2 PRN, sats 89-91 RA. He is not taking ASA, I explained the risks. I encouraged daily weights, 2L fluid restriction. He has an appt with Dr Yarbrough on Wednesday, I encouraged him to ask about the ASA, Medications for his peripheral neuropathies. 07/21 Enc him to communicate to MD's his addition of vitamins or change to other meds. Rash being addressed by MD and leg pain better. more active and feels better. will f/u in 2 weeks Unable to contact 08/09 States he is doing'OK" has alot of trouble getting around. His ex- sets up his meds and "by mistake got an extra lasix in his pill box" enc him to look at his pills and make sure he is taking what he needs to at that time. Not able to get out of the house much as ex- is busy and she has been helping him out alot. "Not sure if this is much of a life." 08/17 feels like this is his best day in a long time. Pain is manageable now,skin ulcers are healing. he has had f/u with PCP, derm and sees pulm today. able to be more active and eat and wear shoes. states wound on his leg is almost healed. he is aware of his balance problem and is more careful with mobility andgoes slower . agree to f/u in 2 week 08/30 unable to contact. 09/02 Left message. 09/09 Neuropathy pain is worse, mild swelling to lower extremeties. The Drs at [facility] told him he has Multiple Myeloma, he has an appt with Dr Smith tomorrow. He may be depressed. 09/13 unable to contact 09/16 unable to contact 09/18 unable to contact. 09/20He could not get out of bed last week due to "an arthritis flare up," he had to reschedule his appt with Luis for 09/30. He is debating about making an appt with Dr Huston. 10/02 unable to contact-left message. 10/04 Has an appt to see Dr Arana this week. He states he is feeling better and mentally improved since he is able to walk and get out of the home. He is driving but has several friends and his daughter checking on him. Legs better if he keeps them elevated while resting. 10/12 He is in good spirits, due to increased mobility allowed by decreased pain. He is working on cleaning out his house, and hopes to sell it, to relocating to a lower elevation, warmer climate. This winter was very hard on him emotionally, and he needs a climate that is more condusive to activity, and easier breathing. 10/14 Meño was admitted to [facility]. 10/16 Transferred to [facility] for further cardic workup. 11/04 Saw him on [facility] this morning, he was very drowsy, and had a hard time staying awake. We discussed his plan to return home and his [facility] goals to get him there. 11/23 He went home from [facility] yesterday. On 4L O2, moving safely in his home with a cane. He is going to [facility] to pick up worker his prescriptions this morning. I reviewed his discharge instructions, and medications. He has an Appt with Dr Tirado tomorrow. Copies to: ADY TIRADO MD, MICHAEL K Nov 24, 2017 10:54
[2017-11-25] MEDS ORDERED: RIOC2.5T PO (08:03)
[2017-11-25] MEDS ORDERED: CHOL500045 PO (08:03)
[2017-11-25] MEDS ORDERED: PREG100C44 PO (08:57)
[2017-11-25] MEDS ORDERED: CLOP75TA PO (08:57)
[2017-11-26] MEDS ORDERED: DICL100G39 TOP (11:33)
--- NOTE | 2017-11-30 13:43 | Transitional Care Management ---
Assessment Cardiac: WNL Except Cardiac Comment: 06/28 Reports hes managing CHF with lasix 2 tab in am and 1 in pm. Is taking his bp med bid. Ulices wrap legs or use comp socks as his legs were too tender but, keeps them elevated above his heart when in his recliner 07/06 No edema, lasix continues. He is not taking any asprin. 07/13 states legs "not swollen" but wt increasing. taking lasix bid, ulices wear comp socks, "skin sensitive to touch" too painful to place 07/21 denies edema, sob or wt gain 08/09 Denies CP. states LE bilaterily are still swollen, red and very sensitive to touch. Unable to weat HARDY hose. 08/17 Best day since my [place] [facility]" No edema and able to wear socks and shoes. Taking lasix 40 bid 09/09 A little bit of edema in his feet/lower legs. 10/04 States legs-swelling and cellulitis doing better "able to walk" 10/12 Reduced edema. Respiratory: WNL Except Respiratory Comment: 06/28 Reports "I don't need it (oxygen)". Wears anywhere from 2-4 L when he does wear it. He states pox 86% on avg and instructed he should have it at 89 or more. Review se of low o2 could be SOB confusion. Is on adempas and the pharmacy has a person from [place] assess his bp prior to renewing or increasing dose. He notes prior bps were 140/80 but now 120/80 and was once 88/48 but no dizzyness. Instruct not to take with his magnesium. 07/06 Wears 2-4 L PRN, he tollerates longer periods without O2. Checks his O2 sats regularly, maintaining 89-91% on RA for extended periods. 07/14 sats 90% yest in clinic on 4 L; stress importance of wearing 24/7 and for helping PVD. denies sob, Enc cdb to prevent pneumonia 07/21 denies sob but act is still limited 08/09 uses O2 24/7. Had resp come and change out his tubing and mask and feels like he is breathing better. Still not able to do alot of activity but does walk around the apart some. 08/17 WEaring O2 most of time now as he was recently to ER with AMS without his O2. states "I learned my lesson the hard way". Denies SOB, cough 10/04 Wears O2 at all times. Enc to be aware of tubing 10/12 Denies SOB 11/23 Wearing 4L O2. GI: Nutrition: WNL Except GI Comment: 06/28 reports never liked much salt. primary fresh fruit and vegies. He only restricted fluids when his legs were edematous. Enc him to limit to 2L due to CHF dx. Not a smoker, Cant remember last etoh drink. Only a cup of coffee rarely. Little fat in diet 07/06 reinforced 2L fluid restriction. 07/13 c/o chronic constipation, review colace, miralaxand fiber. "Need to drink" whentold to restrict to 2 L a day 07/21 cont. to recommend 2 L restriction 08/09 went over low salt diet and 2L fluid restriction. 08/17 no constip with iron, actually getting looseer and back to nromal 09/09 Reinforced fluid restriction. "I cut back on my fluids when my legs begin to swell." Wt Gain/Loss: WNL Except Weight Comment: needs daily wt 07/06 He says his weights are doing "real good", but can't remember his last weight, that was a few days ago. I stressed the importance of daily weights. 07/14 reports up to 141 now . asked if it was water wt as lasix can only help with limited amount 08/09 does not weight daily but trys to wt ever other day and it has been staying the same but states if he starts to gain he will call 08/17 wt was 133 when he was sick but is trying to gain wt and is now 142; denies it is fluid wt as he has no edema or SOB 09/09 He has not weighed recently. I explained the importance of daily weights. 10/04 still does not Wt. Repeated the importance Constipation?: No : WNL Musculoskeletal, Exercise: WNL Except Musculoskeletal, Excercise Com: 06/28 with less pain states he can walk better/more. Enc to keep walking to improve circulation/pain 07/06 Increased foot pain, "feels like I am walking on gravel". Dr Yarbrough ordered a cream for this during his last visit, but he was unable to get it due to cost. 08/09 feet and legs remain very sensitive to touch or walking. Tries to walk around the apart some in order to get some exercise "my feet hurt like heck--no words to explain how they hurt"- 08/17 taking lyrica now too and able to walk with less pain. has PT from [facility] 09/09 He can only be on his feet for about ten minutes due to neuropathy pain. 10/04 states the pain is improved and he is walking more since the swelling in legs have gone down. 10/12 Reduced swelling and foot pain are allowing him to be more active, get out of the house. 11/23 Foot pain continues, limiting activity. Mobility/Falls: WNL Except Mobility Comment: 07/06 He can only walk short distances due to foot pain. 07/14 reports he lost his balance and fell at home. has stairs to climb and his legs buckle if he has to carry something. Knows exercises he can do in his chair to help maintain strength andmobility. enc to do them or return to PT. 08/17 trying to use a cane more 09/20 He had an "arthritis flare up"' and spent last week in bed. Currently at his baseline. 11/23 Using a cane in his home, has not done much since getting home yesterday. Integumentary: WNL Except Integumentary Comment: 06/28 states "I cut the aspirin out 2-3 weeks ago...just experimenting" States he took it for years but quit because his legs beneath the knees bilat had pain, redness, drainage, edema and arms were black and blue. All symptons have been improving since quitting ASA. Asked if he thinks the duloxetine and hydroxyzine have helped and may be the reason his sx have improved. REcomended he ask Dr before quitting any med and that he ask him if he should resume since he has had stents in the past and that ASA was supposed to prevent platelets from clogging his stents. Has appt with Dr Reese for allergy testing 07/13 07/06 Left leg wound, [facility] is discharging him, and he dosn't know how this wound will get cared for. 07/14 saw ENT yesterday who is getting f/u on a biopsy, will return on 07/21 07/21 KOBI Reese told him he had 100's allergies and will start shots 1-2 x a week. states leg wound cont. to get better and no s/s infection 08/17 saw R Dasha, derm, and started new lina that is helpin a lot; his sores are healing now Feeling of Well Being: WNL Except Feeling of Well Being Comment: 06/28 felt bad after going to [facility]. Lost his job. Now is a "shut in" but he can drive now. 07/06 "I can't walk or work, medical costs are going up, I guess I'll live until I run out of money." 07/14 reports cant afford $200 copay for newlyrica. States "tired of living like this" and "this isn't living". will trylyrica 07/21 pain is better and sounds more energetic 08/17 Cutting his hair today and this is his best day since Mar. Less pain and more mobility. states salvador made him get a life alert button and he is wearing it now 09/09 "All I do is sit and look out the window. I'm single, don't have any family, and don't really have any reason to want to go on." 09/20 He is less depressed than 09/09, but stated, "Nobody calls to check on me." 10/12 He is in a good mood, feeling good about being able to be more active. 11/23 He feels good to be home, but is weary of doing very much. Socialization: WNL Except Socialization Comment: 07/06 Not getting out of his house. 10/12 He is getting out of the house. 11/23 Friends rthere to see him today. Pain/Management: WNL Except Pain/Management Comment: 06/28 improving in legs with duloxetine and stopping his ASA about the same time 07/06 Unable to walk more than about 50 ft due to pain in his feet. "I feel like I am walking on gravel." He was unable to fill a script for a cream to help with this. 07/14 has new rx for percocet bid. enc to keep legs elevated 07/21 pain better and able to walk more 08/17 better today with lyrica routinely 09/09 Neuropathy pain is worse, limiting mobility. 09/20 decreased neuropthy pain. 10/12 minimal pain. 11/23 Foot pain. Scheduled Follow-Up with Provi: Yes (6/[address] with Dr Baez tomorrow) Community Resources/HHC: 06/28 states Eliane from [facility] pharmacy visits him for adempas refill and to increasing dose .5mg each refill. 07/06 [facility] discharged him. 07/14 sees [facility] in 2 wk. His nurse to make f/u with cardio and pulm 08/17 states he has appt today 10/04 going to change DrsJulienne from [facility] to Dr. Arana has an appt w her this week Questions for Future PCP Visit: 06/28 Has stopped ASA on his own. Should he resume? Duloxetine started about the same time and symptoms have improved, should it be continued? Is it safe to go without O2 prn thru the day? He reports lowered bp and edema with adempas use. Insomnia? 07/06 Need for anticoagulation? Neuropathy pain in his feet? 07/14 PT for weakness and fall? Ability to pay $200 copay for lyrica. Pt states he "needs to drink " but is on 2 L fluid restriction for CHF; please clarify with pt. f/u for statement that "I'm tired of living like this". Referral to [place] specialist in [place] for a laser treatment? 09/09 Poor neuropathy pain control. Depression? 8 Arthritis pain control. Following Discharge Instructio: Yes TCM Discharge Criteria Medication Knowledge: 06/28 review some meds with him and he knows names and doses 07/21 states hes taking b vit and that may be why legs are feeling better, also taking lyrica and percocet. keeps med list up to date with danny md visit Disease Management/Concern/Wha: CHF Red/Yellow Flags: 08/09 went over the red and yellow flags of CHF Transitional Care Comment: 06/28 Refererd to [facility] due to frequency in ER. He reports feeling better since his return from [place]. Only wearing O2 prn days and at hs. "I just turn it on to 2,3,4, I don't know the difference, and breathe". REeports leg redness, edema and scales have diminished by stopping his ASA. Enc him to discuss this with MD before self medicating as his stent is at risk of clogging. Will need reminding to limit fluids, wt q day and CHF sx to monitor and report. Agree to f/u next week 07/06 He is less mobile, due to pain. Wears O2 PRN, sats 89-91 RA. He is not taking ASA, I explained the risks. I encouraged daily weights, 2L fluid restriction. He has an appt with Dr Yarbrough on Wednesday, I encouraged him to ask about the ASA, Medications for his peripheral neuropathies. 07/21 Enc him to communicate to MD's his addition of vitamins or change to other meds. Rash being addressed by MD and leg pain better. more active and feels better. will f/u in 2 weeks Unable to contact 08/09 States he is doing'OK" has alot of trouble getting around. His ex- sets up his meds and "by mistake got an extra lasix in his pill box" enc him to look at his pills and make sure he is taking what he needs to at that time. Not able to get out of the house much as ex- is busy and she has been helping him out alot. "Not sure if this is much of a life." 08/17 feels like this is his best day in a long time. Pain is manageable now,skin ulcers are healing. he has had f/u with PCP, derm and sees pulm today. able to be more active and eat and wear shoes. states wound on his leg is almost healed. he is aware of his balance problem and is more careful with mobility andgoes slower . agree to f/u in 2 week 08/30 unable to contact. 09/02 Left message. 09/09 Neuropathy pain is worse, mild swelling to lower extremeties. The Drs at [facility] told him he has Multiple Myeloma, he has an appt with Dr Smith tomorrow. He may be depressed. 09/13 unable to contact 09/16 unable to contact 09/18 unable to contact. 09/20He could not get out of bed last week due to "an arthritis flare up," he had to reschedule his appt with Luis for 09/30. He is debating about making an appt with Dr Huston. 10/02 unable to contact-left message. 10/04 Has an appt to see Dr Arana this week. He states he is feeling better and mentally improved since he is able to walk and get out of the home. He is driving but has several friends and his daughter checking on him. Legs better if he keeps them elevated while resting. 10/12 He is in good spirits, due to increased mobility allowed by decreased pain. He is working on cleaning out his house, and hopes to sell it, to relocating to a lower elevation, warmer climate. This winter was very hard on him emotionally, and he needs a climate that is more condusive to activity, and easier breathing. 10/14 Meño was admitted to [facility]. 10/16 Transferred to [facility] for further cardic workup. 11/04 Saw him on [facility] this morning, he was very drowsy, and had a hard time staying awake. We discussed his plan to return home and his [facility] goals to get him there. 11/23 He went home from [facility] yesterday. On 4L O2, moving safely in his home with a cane. 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 I reviewed his discharge instructions, and medications. He has an Appt with Dr Baez tomorrow. unable to contact. [address] Nov 30, 2017 13:43
--- NOTE | 2017-12-03 10:56 | Transitional Care Management ---
Assessment Visit Type: Telephone Visit (12/03 Meño) Cardiac: WNL Except Cardiac Comment: 06/28 Reports hes managing CHF with lasix 2 tab in am and 1 in pm. Is taking his bp med bid. Ulices wrap legs or use comp socks as his legs were too tender but, keeps them elevated above his heart when in his recliner 07/06 No edema, lasix continues. He is not taking any asprin. 07/13 states legs "not swollen" but wt increasing. taking lasix bid, cant wear comp socks, "skin sensitive to touch" too painful to place 07/21 denies edema, sob or wt gain 08/09 Denies CP. states LE bilaterily are still swollen, red and very sensitive to touch. Unable to weat HARDY hose. 08/17 Best day since my [facility]" No edema and able to wear socks and shoes. Taking lasix 40 bid 09/09 A little bit of edema in his feet/lower legs. 10/04 States legs-swelling and cellulitis doing better "able to walk" 10/12 Reduced edema. Respiratory: WNL Except Respiratory Comment: 06/28 Reports "I don't need it (oxygen)". Wears anywhere from 2-4 L when he does wear it. He states pox 86% on avg and instructed he should have it at 89 or more. Review se of low o2 could be SOB confusion. Is on adempas and the pharmacy has a person from [place] assess his bp prior to renewing or increasing dose. He notes prior bps were 140/80 but now 120/80 and was once 88/48 but no dizzyness. Instruct not to take with his magnesium. 07/06 Wears 2-4 L PRN, he tollerates longer periods without O2. Checks his O2 sats regularly, maintaining 89-91% on RA for extended periods. 07/14 sats 90% yest in clinic on 4 L; stress importance of wearing 24/7 and for helping PVD. denies sob, Enc cdb to prevent pneumonia 07/21 denies sob but act is still limited 08/09 uses O2 24/7. Had resp come and change out his tubing and mask and feels like he is breathing better. Still not able to do alot of activity but does walk around the apart some. 08/17 WEaring O2 most of time now as he was recently to ER with AMS without his O2. states "I learned my lesson the hard way". Denies SOB, cough 10/04 Wears O2 at all times. Enc to be aware of tubing 10/12 Denies SOB 11/23 Wearing 4L O2. GI: Nutrition: WNL Except GI Comment: 06/28 reports never liked much salt. primary fresh fruit and vegies. He only restricted fluids when his legs were edematous. Enc him to limit to 2L due to CHF dx. Not a smoker, Cant remember last etoh drink. Only a cup of coffee rarely. Little fat in diet 07/06 reinforced 2L fluid restriction. 07/13 c/o chronic constipation, review colace, miralaxand fiber. "Need to drink" whentold to restrict to 2 L a day 07/21 cont. to recommend 2 L restriction 08/09 went over low salt diet and 2L fluid restriction. 08/17 no constip with iron, actually getting looseer and back to nromal 09/09 Reinforced fluid restriction. "I cut back on my fluids when my legs begin to swell." Wt Gain/Loss: WNL Except Weight Comment: needs daily wt 07/06 He says his weights are doing "real good", but can't remember his last weight, that was a few days ago. I stressed the importance of daily weights. 07/14 reports up to 141 now . asked if it was water wt as lasix can only help with limited amount 08/09 does not weight daily but trys to wt ever other day and it has been staying the same but states if he starts to gain he will call Dr. 08/17 wt was 133 when he was sick but is trying to gain wt and is now 142; denies it is fluid wt as he has no edema or SOB 09/09 He has not weighed recently. I explained the importance of daily weights. 10/04 still does not Wt. Repeated the importance Constipation?: No : WNL Musculoskeletal, Exercise: WNL Except Musculoskeletal, Excercise Com: 06/28 with less pain states he can walk better/more. Enc to keep walking to improve circulation/pain 07/06 Increased foot pain, "feels like I am walking on gravel". Dr Yarbrough ordered a cream for this during his last visit, but he was unable to get it due to cost. 08/09 feet and legs remain very sensitive to touch or walking. Tries to walk around the apart some in order to get some exercise "my feet hurt like heck--no words to explain how they hurt"- 08/17 taking lyrica now too and able to walk with less pain. has PT from [facility] 09/09 He can only be on his feet for about ten minutes due to neuropathy pain. 10/04 states the pain is improved and he is walking more since the swelling in legs have gone down. 10/12 Reduced swelling and foot pain are allowing him to be more active, get out of the house. 11/23 Foot pain continues, limiting activity. Mobility/Falls: WNL Except Mobility Comment: 07/06 He can only walk short distances due to foot pain. 07/14 reports he lost his balance and fell at home. has stairs to climb and his legs buckle if he has to carry something. Knows exercises he can do in his chair to help maintain strength andmobility. enc to do them or return to PT. 08/17 trying to use a cane more 09/20 He had an "arthritis flare up"' and spent last week in bed. Currently at his baseline. 11/23 Using a cane in his home, has not done much since getting home yesterday. Integumentary: WNL Except Integumentary Comment: 06/28 states "I cut the aspirin out 2-3 weeks ago...just experimenting" States he took it for years but quit because his legs beneath the knees bilat had pain, redness, drainage, edema and arms were black and blue. All symptons have been improving since quitting ASA. Asked if he thinks the duloxetine and hydroxyzine have helped and may be the reason his sx have improved. REcomended he ask Dr before quitting any med and that he ask him if he should resume since he has had stents in the past and that ASA was supposed to prevent platelets from clogging his stents. Has appt with Dr Reese for allergy testing 07/13 07/06 Left leg wound, [facility] is discharging him, and he dosn't know how this wound will get cared for. 07/14 saw ENT yesterday who is getting f/u on a biopsy, will return on 07/21 07/21 ENT Hugh told him he had 100's allergies and will start shots 1-2 x a week. states leg wound cont. to get better and no s/s infection 08/17 saw R randy Lou, and started new lina that is helpin a lot; his sores are healing now Feeling of Well Being: WNL Except Feeling of Well Being Comment: 06/28 felt bad after going to [facility]. Lost his job. Now is a "shut in" but he can drive now. 07/06 "I can't walk or work, medical costs are going up, I guess I'll live until I run out of money." 07/14 reports cant afford $200 copay for newlyrica. States "tired of living like this" and "this isn't living". will trylyrica 07/21 pain is better and sounds more energetic 08/17 Cutting his hair today and this is his best day since Mar. Less pain and more mobility. states salvador made him get a life alert button and he is wearing it now 09/09 "All I do is sit and look out the window. I'm single, don't have any family, and don't really have any reason to want to go on." 09/20 He is less depressed than 09/09, but stated, "Nobody calls to check on me." 10/12 He is in a good mood, feeling good about being able to be more active. 11/23 He feels good to be home, but is weary of doing very much. Socialization: WNL Except Socialization Comment: 07/06 Not getting out of his house. 10/12 He is getting out of the house. 11/23 Friends rthere to see him today. Pain/Management: WNL Except Pain/Management Comment: 06/28 improving in legs with duloxetine and stopping his ASA about the same time 07/06 Unable to walk more than about 50 ft due to pain in his feet. "I feel like I am walking on gravel." He was unable to fill a script for a cream to help with this. 07/14 has new rx for percocet bid. enc to keep legs elevated 07/21 pain better and able to walk more 08/17 better today with lyrica routinely 09/09 Neuropathy pain is worse, limiting mobility. 09/20 decreased neuropthy pain. 10/12 minimal pain. 11/23 Foot pain. Scheduled Follow-Up with Provi: Yes (11/[address] with Dr Tirado tomorrow) Community Resources/HHC: 06/28 states Eliane from [facility] pharmacy visits him for adempas refill and to increasing dose .5mg each refill. 07/06 [facility] discharged him. 07/14 sees [facility] in 2 wk. His nurse to make f/u with cardio and pulm 08/17 states he has appt today 10/04 going to change DrsJulienne from [facility] to Dr. Arana has an appt w her this week Questions for Future PCP Visit: 06/28 Has stopped ASA on his own. Should he resume? Duloxetine started about the same time and symptoms have improved, should it be continued? Is it safe to go without O2 prn thru the day? He reports lowered bp and edema with adempas use. Insomnia? 07/06 Need for anticoagulation? Neuropathy pain in his feet? 07/14 PT for weakness and fall? Ability to pay $200 copay for lyrica. Pt states he "needs to drink " but is on 2 L fluid restriction for CHF; please clarify with pt. f/u for statement that "I'm tired of living like this". Referral to [place] specialist in [place] for a laser treatment? / Poor neuropathy pain control. Depression? 10/12 Arthritis pain control. Following Discharge Instructio: Yes TCM Discharge Criteria Medication Knowledge: 06/28 review some meds with him and he knows names and doses 07/21 states hes taking b vit and that may be why legs are feeling better, also taking lyrica and percocet. keeps med list up to date with danny md visit Disease Management/Concern/Wha: CHF Red/Yellow Flags: 08/09 went over the red and yellow flags of CHF Transitional Care Comment: 06/28 Refererd to [facility] due to frequency in ER. He reports feeling better since his return from [place]. Only wearing O2 prn days and at hs. "I just turn it on to 2,3,4, I don't know the difference, and breathe". REeports leg redness, edema and scales have diminished by stopping his ASA. Enc him to discuss this with MD before self medicating as his stent is at risk of clogging. Will need reminding to limit fluids, wt q day and CHF sx to monitor and report. Agree to f/u next week 07/06 He is less mobile, due to pain. Wears O2 PRN, sats 89-91 RA. He is not taking ASA, I explained the risks. I encouraged daily weights, 2L fluid restriction. He has an appt with Dr Yarbrough on Wednesday, I encouraged him to ask about the ASA, Medications for his peripheral neuropathies. 07/21 Enc him to communicate to MD's his addition of vitamins or change to other meds. Rash being addressed by MD and leg pain better. more active and feels better. will f/u in 2 weeks Unable to contact 08/09 States he is doing'OK" has alot of trouble getting around. His ex- sets up his meds and "by mistake got an extra lasix in his pill box" enc him to look at his pills and make sure he is taking what he needs to at that time. Not able to get out of the house much as ex- is busy and she has been helping him out alot. "Not sure if this is much of a life." 08/17 feels like this is his best day in a long time. Pain is manageable now,skin ulcers are healing. he has had f/u with PCP, derm and sees pulm today. able to be more active and eat and wear shoes. states wound on his leg is almost healed. he is aware of his balance problem and is more careful with mobility andgoes slower . agree to f/u in 2 week 08/30 unable to contact. 09/02 Left message. 09/09 Neuropathy pain is worse, mild swelling to lower extremeties. The Drs at [facility] told him he has Multiple Myeloma, he has an appt with Dr Smith tomorrow. He may be depressed. 09/13 unable to contact 09/16 unable to contact 09/18 unable to contact. 09/20He could not get out of bed last week due to "an arthritis flare up," he had to reschedule his appt with Luis for 09/30. He is debating about making an appt with Dr Huston. 10/02 unable to contact-left message. 10/04 Has an appt to see Dr Arana this week. He states he is feeling better and mentally improved since he is able to walk and get out of the home. He is driving but has several friends and his daughter checking on him. Legs better if he keeps them elevated while resting. 10/12 He is in good spirits, due to increased mobility allowed by decreased pain. He is working on cleaning out his house, and hopes to sell it, to relocating to a lower elevation, warmer climate. This winter was very hard on him emotionally, and he needs a climate that is more condusive to activity, and easier breathing. 10/14 Meño was admitted to [facility]. 10/16 Transferred to [facility] for further cardic workup. 11/04 Saw him on [facility] this morning, he was very drowsy, and had a hard time staying awake. We discussed his plan to return home and his [facility] goals to get him there. 11/23 He went home from [facility] yesterday. On 4L O2, moving safely in his home with a cane. He is going to [facility] to [facility] pick[facility] his prescriptions this morning. I reviewed his discharge instructions, and medications. He has an Appt with Dr Tirado tomorrow. 11/29,, unable to contact. 12/03 Meño with PT/HH at this time but states he is improving "slow process" . Explanined to him that we have been trying to contact him since co. states "I'm [place] and sometimes don't hear the phone". Will try to contact again later. Copies to: ADY TIRADO MD, JOAN Dec 03, 2017 10:56
--- NOTE | 2017-12-07 11:30 | Transitional Care Management ---
Assessment Cardiac: WNL Except Cardiac Comment: 06/28 Reports hes managing CHF with lasix 2 tab in am and 1 in pm. Is taking his bp med bid. Ulices wrap legs or use comp socks as his legs were too tender but, keeps them elevated above his heart when in his recliner 07/06 No edema, lasix continues. He is not taking any asprin. 07/13 states legs "not swollen" but wt increasing. taking lasix bid, ulices wear comp socks, "skin sensitive to touch" too painful to place 07/21 denies edema, sob or wt gain 08/09 Denies CP. states LE bilaterily are still swollen, red and very sensitive to touch. Unable to weat HARDY hose. 08/17 Best day since my long-term" No edema and able to wear socks and shoes. Taking lasix 40 bid 09/09 A little bit of edema in his feet/lower legs. 10/04 States legs-swelling and cellulitis doing better "able to walk" 10/12 Reduced edema. Respiratory: WNL Except Respiratory Comment: 06/28 Reports "I don't need it (oxygen)". Wears anywhere from 2-4 L when he does wear it. He states pox 86% on avg and instructed he should have it at 89 or more. Review se of low o2 could be SOB confusion. Is on adempas and the pharmacy has a person from [place] assess his bp prior to renewing or increasing dose. He notes prior bps were 140/80 but now 120/80 and was once 88/48 but no dizzyness. Instruct not to take with his magnesium. 07/06 Wears 2-4 L PRN, he tollerates longer periods without O2. Checks his O2 sats regularly, maintaining 89-91% on RA for extended periods. 07/14 sats 90% yest in clinic on 4 L; stress importance of wearing 24/7 and for helping PVD. denies sob, Enc cdb to prevent pneumonia 07/21 denies sob but act is still limited 08/09 uses O2 24/7. Had resp come and change out his tubing and mask and feels like he is breathing better. Still not able to do alot of activity but does walk around the apart some. 08/17 WEaring O2 most of time now as he was recently to ER with AMS without his O2. states "I learned my lesson the hard way". Denies SOB, cough 10/04 Wears O2 at all times. Enc to be aware of tubing 10/12 Denies SOB 11/23 Wearing 4L O2. GI: Nutrition: WNL Except GI Comment: 06/28 reports never liked much salt. primary fresh fruit and vegies. He only restricted fluids when his legs were edematous. Enc him to limit to 2L due to CHF dx. Not a smoker, Cant remember last etoh drink. Only a cup of coffee rarely. Little fat in diet 07/06 reinforced 2L fluid restriction. 07/13 c/o chronic constipation, review colace, miralaxand fiber. "Need to drink" whentold to restrict to 2 L a day 07/21 cont. to recommend 2 L restriction 08/09 went over low salt diet and 2L fluid restriction. 08/17 no constip with iron, actually getting looseer and back to nromal 09/09 Reinforced fluid restriction. "I cut back on my fluids when my legs begin to swell." Wt Gain/Loss: WNL Except Weight Comment: needs daily wt 07/06 He says his weights are doing "real good", but can't remember his last weight, that was a few days ago. I stressed the importance of daily weights. 07/14 reports up to 141 now . asked if it was water wt as lasix can only help with limited amount 08/09 does not weight daily but trys to wt ever other day and it has been staying the same but states if he starts to gain he will call 08/17 wt was 133 when he was sick but is trying to gain wt and is now 142; denies it is fluid wt as he has no edema or SOB 09/09 He has not weighed recently. I explained the importance of daily weights. 10/04 still does not Wt. Repeated the importance Constipation?: No : WNL Musculoskeletal, Exercise: WNL Except Musculoskeletal, Excercise Com: 06/28 with less pain states he can walk better/more. Enc to keep walking to improve circulation/pain 07/06 Increased foot pain, "feels like I am walking on gravel". Dr Yarbrough ordered a cream for this during his last visit, but he was unable to get it due to cost. 08/09 feet and legs remain very sensitive to touch or walking. Tries to walk around the apart some in order to get some exercise "my feet hurt like heck--no words to explain how they hurt"- 08/17 taking lyrica now too and able to walk with less pain. has PT from [facility] 09/09 He can only be on his feet for about ten minutes due to neuropathy pain. 10/04 states the pain is improved and he is walking more since the swelling in legs have gone down. 10/12 Reduced swelling and foot pain are allowing him to be more active, get out of the house. 11/23 Foot pain continues, limiting activity. Mobility/Falls: WNL Except Mobility Comment: 07/06 He can only walk short distances due to foot pain. 07/14 reports he lost his balance and fell at home. has stairs to climb and his legs buckle if he has to carry something. Knows exercises he can do in his chair to help maintain strength andmobility. enc to do them or return to PT. 08/17 trying to use a cane more 09/20 He had an "arthritis flare up"' and spent last week in bed. Currently at his baseline. 11/23 Using a cane in his home, has not done much since getting home yesterday. Integumentary: WNL Except Integumentary Comment: 06/28 states "I cut the aspirin out 2-3 weeks ago...just experimenting" States he took it for years but quit because his legs beneath the knees bilat had pain, redness, drainage, edema and arms were black and blue. All symptons have been improving since quitting ASA. Asked if he thinks the duloxetine and hydroxyzine have helped and may be the reason his sx have improved. REcomended he ask Dr before quitting any med and that he ask him if he should resume since he has had stents in the past and that ASA was supposed to prevent platelets from clogging his stents. Has appt with Dr Reese for allergy testing 07/13 07/06 Left leg wound, [facility] is discharging him, and he dosn't know how this wound will get cared for. 07/14 saw ENT yesterday who is getting f/u on a biopsy, will return on 07/21 07/21 KOBI Reese told him he had 100's allergies and will start shots 1-2 x a week. states leg wound cont. to get better and no s/s infection 08/17 saw R Dasha, derm, and started new lina that is helpin a lot; his sores are healing now Feeling of Well Being: WNL Except Feeling of Well Being Comment: 06/28 felt bad after going to [facility]. Lost his job. Now is a "shut in" but he can drive now. 07/06 "I can't walk or work, medical costs are going up, I guess I'll live until I run out of money." 07/14 reports cant afford $200 copay for newlyrica. States "tired of living like this" and "this isn't living". will trylyrica 07/21 pain is better and sounds more energetic 08/17 Cutting his hair today and this is his best day since Mar. Less pain and more mobility. states salvador made him get a life alert button and he is wearing it now 09/09 "All I do is sit and look out the window. I'm single, don't have any family, and don't really have any reason to want to go on." 09/20 He is less depressed than 09/09, but stated, "Nobody calls to check on me." 10/12 He is in a good mood, feeling good about being able to be more active. 11/23 He feels good to be home, but is weary of doing very much. Socialization: WNL Except Socialization Comment: 07/06 Not getting out of his house. 10/12 He is getting out of the house. 11/23 Friends rthere to see him today. Pain/Management: WNL Except Pain/Management Comment: 06/28 improving in legs with duloxetine and stopping his ASA about the same time 07/06 Unable to walk more than about 50 ft due to pain in his feet. "I feel like I am walking on gravel." He was unable to fill a script for a cream to help with this. 07/14 has new rx for percocet bid. enc to keep legs elevated 07/21 pain better and able to walk more 08/17 better today with lyrica routinely 09/09 Neuropathy pain is worse, limiting mobility. 09/20 decreased neuropthy pain. 10/12 minimal pain. 11/23 Foot pain. Scheduled Follow-Up with [facility]: Yes (6/[address] with Dr Baez tomorrow) Community Resources/HHC: 06/28 states Eliane from [facility] pharmacy visits him for adempas refill and to increasing dose .5mg each refill. 07/06 [facility] discharged him. 07/14 sees [facility] in 2 wk. His nurse to make f/u with cardio and pulm 08/17 states he has appt today 10/04 going to change DrsJulienne from [facility] to Dr. Arana has an appt w her this week Questions for Future PCP Visit: 06/28 Has stopped ASA on his own. Should he resume? Duloxetine started about the same time and symptoms have improved, should it be continued? Is it safe to go without O2 prn thru the day? He reports lowered bp and edema with adempas use. Insomnia? 07/06 Need for anticoagulation? Neuropathy pain in his feet? 07/14 PT for weakness and fall? Ability to pay $200 copay for lyrica. Pt states he "needs to drink " but is on 2 L fluid restriction for CHF; please clarify with pt. f/u for statement that "I'm tired of living like this". Referral to [place] specialist in [place] for a laser treatment? 09/09 Poor neuropathy pain control. Depression? 8 Arthritis pain control. Following Discharge Instructio: Yes TCM Discharge Criteria Medication Knowledge: 06/28 review some meds with him and he knows names and doses 07/21 states hes taking b vit and that may be why legs are feeling better, also taking lyrica and percocet. keeps med list up to date with danny md visit Disease Management/Concern/Wha: CHF Red/Yellow Flags: 08/09 went over the red and yellow flags of CHF Transitional Care Comment: 06/28 Refererd to [facility] due to frequency in ER. He reports feeling better since his return from [facility]. Only wearing O2 prn days and at hs. "I just turn it on to 2,3,4, I don't know the difference, and breathe". REeports leg redness, edema and scales have diminished by stopping his ASA. Enc him to discuss this with MD before self medicating as his stent is at risk of clogging. Will need reminding to limit fluids, wt q day and CHF sx to monitor and report. Agree to f/u next week 07/06 He is less mobile, due to pain. Wears O2 PRN, sats 89-91 RA. He is not taking ASA, I explained the risks. I encouraged daily weights, 2L fluid restriction. He has an appt with Dr Yarbrough on Wednesday, I encouraged him to ask about the ASA, Medications for his peripheral neuropathies. 07/21 Enc him to communicate to MD's his addition of vitamins or change to other meds. Rash being addressed by MD and leg pain better. more active and feels better. will f/u in 2 weeks Unable to contact 08/09 States he is doing'OK" has alot of trouble getting around. His ex- sets up his meds and "by mistake got an extra lasix in his pill box" enc him to look at his pills and make sure he is taking what he needs to at that time. Not able to get out of the house much as ex- is busy and she has been helping him out alot. "Not sure if this is much of a life." 08/17 feels like this is his best day in a long time. Pain is manageable now,skin ulcers are healing. he has had f/u with PCP, derm and sees pulm today. able to be more active and eat and wear shoes. states wound on his leg is almost healed. he is aware of his balance problem and is more careful with mobility andgoes slower . agree to f/u in 2 week 08/30 unable to contact. 09/02 Left message. 09/09 Neuropathy pain is worse, mild swelling to lower extremeties. The Drs at [facility] told him he has Multiple Myeloma, he has an appt with Dr Smith tomorrow. He may be depressed. 09/13 unable to contact 09/16 unable to contact 09/18 unable to contact. 09/20He could not get out of bed last week due to "an arthritis flare up," he had to reschedule his appt with Luis for 09/30. He is debating about making an appt with Dr Huston. 10/02 unable to contact-left message. 10/04 Has an appt to see Dr Arana this week. He states he is feeling better and mentally improved since he is able to walk and get out of the home. He is driving but has several friends and his daughter checking on him. Legs better if he keeps them elevated while resting. 10/12 He is in good spirits, due to increased mobility allowed by decreased pain. He is working on cleaning out his house, and hopes to sell it, to relocating to a lower elevation, warmer climate. This winter was very hard on him emotionally, and he needs a climate that is more condusive to activity, and easier breathing. 10/14 Meño was admitted to [facility]. 10/16 Transferred to [facility] for further [facility] workup. 11/04 Saw him on [facility] this morning, he was very drowsy, and had a hard time staying awake. We discussed his plan to return home and his E[facility] goals to get him there. 11/23 He went home from [facility] yesterday. On 4L O2, moving safely in his home with a cane. 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 I reviewed his discharge instructions, and medications. He has an Appt with Dr Baez tomorrow. 11/29,, unable to contact. 12/03 Meño with PT/HH at this time but states he is improving "slow process" . Explanined to him that we have been trying to contact him since id. states "I'm [place] and sometimes don't hear the phone". Will try to contact again later. 12/07 unable to contact-left YONATAN Ochoa Dec 07, 2017 11:30
[2017-12-07] MEDS ORDERED: CLOB15OI16 TP (13:36)
[2017-12-07] MEDS ORDERED: TRIA15OI20 TP (15:39)
--- NOTE | 2017-12-09 14:41 | Transitional Care Management ---
Assessment Visit Type: Telephone Visit (12/09 Meño) Cardiac: WNL Except Cardiac Comment: 06/28 Reports hes managing CHF with lasix 2 tab in am and 1 in pm. Is taking his bp med bid. Ulices wrap legs or use comp socks as his legs were too tender but, keeps them elevated above his heart when in his recliner 07/06 No edema, lasix continues. He is not taking any asprin. 07/13 states legs "not swollen" but wt increasing. taking lasix bid, cant wear comp socks, "skin sensitive to touch" too painful to place 07/21 denies edema, sob or wt gain 08/09 Denies CP. states LE bilaterily are still swollen, red and very sensitive to touch. Unable to weat HARDY hose. 08/17 Best day since my fdc" No edema and able to wear socks and shoes. Taking lasix 40 bid 09/09 A little bit of edema in his feet/lower legs. 10/04 States legs-swelling and cellulitis doing better "able to walk" 10/12 Reduced edema. 12/09 feet still have some swelling but "much better than previously! Still hurts to walk on them" Respiratory: WNL Except Respiratory Comment: 06/28 Reports "I don't need it (oxygen)". Wears anywhere from 2-4 L when he does wear it. He states pox 86% on avg and instructed he should have it at 89 or more. Review se of low o2 could be SOB confusion. Is on adempas and the pharmacy has a person from [place] assess his bp prior to renewing or increasing dose. He notes prior bps were 140/80 but now 120/80 and was once 88/48 but no dizzyness. Instruct not to take with his magnesium. 07/06 Wears 2-4 L PRN, he tollerates longer periods without O2. Checks his O2 sats regularly, maintaining 89-91% on RA for extended periods. 07/14 sats 90% yest in clinic on 4 L; stress importance of wearing 24/7 and for helping PVD. denies sob, Enc cdb to prevent pneumonia 07/21 denies sob but act is still limited 08/09 uses O2 24/7. Had resp come and change out his tubing and mask and feels like he is breathing better. Still not able to do alot of activity but does walk around the apart some. 08/17 WEaring O2 most of time now as he was recently to ER with AMS without his O2. states "I learned my lesson the hard way". Denies SOB, cough 10/04 Wears O2 at all times. Enc to be aware of tubing 10/12 Denies SOB 11/23 Wearing 4L O2. 12/09 Cont to wear O2 4L and sometimes get SOB if I try to do much GI: Nutrition: WNL Except GI Comment: 06/28 reports never liked much salt. primary fresh fruit and vegies. He only restricted fluids when his legs were edematous. Enc him to limit to 2L due to CHF dx. Not a smoker, Cant remember last etoh drink. Only a cup of coffee rarely. Little fat in diet 07/06 reinforced 2L fluid restriction. 07/13 c/o chronic constipation, review colace, miralaxand fiber. "Need to drink" whentold to restrict to 2 L a day 07/21 cont. to recommend 2 L restriction 08/09 went over low salt diet and 2L fluid restriction. 08/17 no constip with iron, actually getting looseer and back to nromal 09/09 Reinforced fluid restriction. "I cut back on my fluids when my legs begin to swell." Wt Gain/Loss: WNL Except Weight Comment: needs daily wt 07/06 He says his weights are doing "real good", but can't remember his last weight, that was a few days ago. I stressed the importance of daily weights. 07/14 reports up to 141 now . asked if it was water wt as lasix can only help with limited amount 08/09 does not weight daily but trys to wt ever other day and it has been staying the same but states if he starts to gain he will call 08/17 wt was 133 when he was sick but is trying to gain wt and is now 142; denies it is fluid wt as he has no edema or SOB 09/09 He has not weighed recently. I explained the importance of daily weights. 10/04 still does not Wt. Repeated the importance 12/09 Not weighing. Stressed how important it was to weigh. I asked to talk to the aide that stays with him and he said she wasn't there yet Constipation?: No : WNL Musculoskeletal, Exercise: WNL Except Musculoskeletal, Excercise Com: 06/28 with less pain states he can walk better/more. Enc to keep walking to improve circulation/pain 07/06 Increased foot pain, "feels like I am walking on gravel". Dr Yarbrough ordered a cream for this during his last visit, but he was unable to get it due to cost. 08/09 feet and legs remain very sensitive to touch or walking. Tries to walk around the apart some in order to get some exercise "my feet hurt like heck--no words to explain how they hurt"- 08/17 taking lyrica now too and able to walk with less pain. has PT from [facility] 09/09 He can only be on his feet for about ten minutes due to neuropathy pain. 10/04 states the pain is improved and he is walking more since the swelling in legs have gone down. 10/12 Reduced swelling and foot pain are allowing him to be more active, get out of the house. 11/23 Foot pain continues, limiting activity. 12/09 Foot pain continues but "I try to get around the best I cvn" Mobility/Falls: WNL Except Mobility Comment: 07/06 He can only walk short distances due to foot pain. 07/14 reports he lost his balance and fell at home. has stairs to climb and his legs buckle if he has to carry something. Knows exercises he can do in his chair to help maintain strength andmobility. enc to do them or return to PT. 08/17 trying to use a cane more 09/20 He had an "arthritis flare up"' and spent last week in bed. Currently at his baseline. 11/23 Using a cane in his home, has not done much since getting home yesterday. Integumentary: WNL Except Integumentary Comment: 06/28 states "I cut the aspirin out 2-3 weeks ago...just experimenting" States he took it for years but quit because his legs beneath the knees bilat had pain, redness, drainage, edema and arms were black and blue. All symptons have been improving since quitting ASA. Asked if he thinks the duloxetine and hydroxyzine have helped and may be the reason his sx have improved. REcomended he ask Dr before quitting any med and that he ask him if he should resume since he has had stents in the past and that ASA was supposed to prevent platelets from clogging his stents. Has appt with Dr Reese for allergy testing 07/13 07/06 Left leg wound, [facility] is discharging him, and he dosn't know how this wound will get cared for. 07/14 saw ENT yesterday who is getting f/u on a biopsy, will return on 07/21 07/21 ENT Hugh told him he had 100's allergies and will start shots 1-2 x a week. states leg wound cont. to get better and no s/s infection 08/17 saw Maru Lou, derm, and started new lina that is helping a lot; his sores are healing now Feeling of Well Being: WNL Except Feeling of Well Being Comment: 06/28 felt bad after going to [facility]. Lost his job. Now is a "shut in" but he can drive now. 07/06 "I can't walk or work, medical costs are going up, I guess I'll live until I run out of money." 07/14 reports cant afford $200 copay for newlyrica. States "tired of living like this" and "this isn't living". will trylyrica 07/21 pain is better and sounds more energetic 08/17 Cutting his hair today and this is his best day since Mar. Less pain and more mobility. states salvador made him get a life alert button and he is wearing it now 09/09 "All I do is sit and look out the window. I'm single, don't have any family, and don't really have any reason to want to go on." 09/20 He is less depressed than 09/09, but stated, "Nobody calls to check on me." 10/12 He is in a good mood, feeling good about being able to be more active. 11/23 He feels good to be home, but is weary of doing very much. Socialization: WNL Except Socialization Comment: 07/06 Not getting out of his house. 10/12 He is getting out of the house. 11/23 Friends rthere to see him today. Pain/Management: WNL Except Pain/Management Comment: 06/28 improving in legs with duloxetine and stopping his ASA about the same time 07/06 Unable to walk more than about 50 ft due to pain in his feet. "I feel like I am walking on gravel." He was unable to fill a script for a cream to help with this. 07/14 has new rx for percocet bid. enc to keep legs elevated 07/21 pain better and able to walk more 08/17 better today with lyrica routinely 09/09 Neuropathy pain is worse, limiting mobility. 09/20 decreased neuropthy pain. 10/12 minimal pain. 11/23 Foot pain. Scheduled Follow-Up with Provi: Yes (11/[address] Tirado [id number]/ [address] De Los Santos-Cardiac. Office Cleaner and don't see either again for 6 mo. 'Just recently saw Dr Arana) Community Resources/HHC: 06/28 states Eliane from [facility] pharmacy visits him for adempas refill and to increasing dose .5mg each refill. 07/06 [facility] discharged him. 07/14 sees [facility] in 2 wk. His nurse to make f/u with cardio and pulm 08/17 states he has appt today 10/04 going to change DrsJulienne from [facility] to Dr. Arana has an appt w her this week Questions for Future PCP Visit: 06/28 Has stopped ASA on his own. Should he resume? Duloxetine started about the same time and symptoms have improved, should it be continued? Is it safe to go without O2 prn thru the day? He reports lowered bp and edema with adempas use. Insomnia? 07/06 Need for anticoagulation? Neuropathy pain in his feet? 07/14 PT for weakness and fall? Ability to pay $200 copay for lyrica. Pt states he "needs to drink " but is on 2 L fluid restriction for CHF; please clarify with pt. f/u for statement that "I'm tired of living like this". Referral to [place] specialist in [place] for a laser treatment? 4/5 Poor neuropathy pain control. Depression? / Arthritis pain control. Following Discharge Instructio: Yes TCM Discharge Criteria Medication Knowledge: 06/28 review some meds with him and he knows names and doses 07/21 states hes taking b vit and that may be why legs are feeling better, also taking lyrica and percocet. keeps med list up to date with danny md visit Disease Management/Concern/Wha: CHF Red/Yellow Flags: 08/09 went over the red and yellow flags of CHF Transitional Care Comment: 06/28 Refererd to [facility] due to frequency in ER. He reports feeling better since his return from [place]. Only wearing O2 prn days and at hs. "I just turn it on to 2,3,4, I don't know the difference, and breathe". REeports leg redness, edema and scales have diminished by stopping his ASA. Enc him to discuss this with MD before self medicating as his stent is at risk of clogging. Will need reminding to limit fluids, wt q day and CHF sx to monitor and report. Agree to f/u next week 07/06 He is less mobile, due to pain. Wears O2 PRN, sats 89-91 RA. He is not taking ASA, I explained the risks. I encouraged daily weights, 2L fluid restriction. He has an appt with Dr Yarbrough on Wednesday, I encouraged him to ask about the ASA, Medications for his peripheral neuropathies. 07/21 Enc him to communicate to MD's his addition of vitamins or change to other meds. Rash being addressed by MD and leg pain better. more active and feels better. will f/u in 2 weeks Unable to contact 08/09 States he is doing'OK" has alot of trouble getting around. His ex- sets up his meds and "by mistake got an extra lasix in his pill box" enc him to look at his pills and make sure he is taking what he needs to at that time. Not able to get out of the house much as ex- is busy and she has been helping him out alot. "Not sure if this is much of a life." 08/17 feels like this is his best day in a long time. Pain is manageable now,skin ulcers are healing. he has had f/u with PCP, derm and sees pulm today. able to be more active and eat and wear shoes. states wound on his leg is almost healed. he is aware of his balance problem and is more careful with mobility andgoes slower . agree to f/u in 2 week 08/30 unable to contact. 09/02 Left message. /5 Neuropathy pain is worse, mild swelling to lower extremeties. The Drs at [place] told him he has Multiple Myeloma, he has an appt with Dr Smith tomorrow. He may be depressed. 09/13 unable to contact 09/16 unable to contact 09/18 unable to contact. 09/20He could not get out of bed last week due to "an arthritis flare up," he had to reschedule his appt with Luis for 09/30. He is debating about making an appt with Dr Huston. 10/02 unable to contact-left message. 10/04 Has an appt to see Dr Arana this week. He states he is feeling better and mentally improved since he is able to walk and get out of the home. He is driving but has several friends and his daughter checking on him. Legs better if he keeps them elevated while resting. 10/12 He is in good spirits, due to increased mobility allowed by decreased pain. He is working on cleaning out his house, and hopes to sell it, to relocating to a lower elevation, warmer climate. This winter was very hard on him emotionally, and he needs a climate that is more condusive to activity, and easier breathing. 10/14 Meño was admitted to [facility]. 10/16 Transferred to [facility] for further [facility] workup. 11/04 Saw him on ECF this morning, he was very drowsy, and had a hard time staying awake. We discussed his plan to return home and his ECF goals to get him there. 11/23 He went home from [facility]CF yesterday. On 4L O2, moving safely in his home with a cane. He is going to Curse to [facility] his prescriptions this morning. I reviewed his discharge instructions, and medications. He has an Appt with Dr Tirado tomorrow. 11/29,, unable to contact. 12/03 Meño with PT/HH at this time but states he is improving "slow process" . Explanined to him that we have been trying to contact him since [place]. states "I'm [place] and sometimes don't hear the phone". Will try to contact again later. 12/07 unable to contact-left message 12/09 visited [facility]helle Wilder today. He has been to Drs and has aides from [employer] around the clock. 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 "I changed PCP to Dr Arana and I realy like her." Copies to: ADY TIRADO MD, JOAN Dec 09, 2017 14:41
--- NOTE | 2017-12-15 11:00 | Transitional Care Management ---
Assessment Visit Type: Telephone Visit Spoke with: Meño Cardiac: WNL Except Cardiac Comment: 06/28 Reports hes managing CHF with lasix 2 tab in am and 1 in pm. Is taking his bp med bid. Ulices wrap legs or use comp socks as his legs were too tender but, keeps them elevated above his heart when in his recliner 07/06 No edema, lasix continues. He is not taking any asprin. 07/13 states legs "not swollen" but wt increasing. taking lasix bid, ulices wear comp socks, "skin sensitive to touch" too painful to place 07/21 denies edema, sob or wt gain 08/09 Denies CP. states LE bilaterily are still swollen, red and very sensitive to touch. Unable to weat HARDY hose. 08/17 Best day since my fci" No edema and able to wear socks and shoes. Taking lasix 40 bid 09/09 A little bit of edema in his feet/lower legs. 10/04 States legs-swelling and cellulitis doing better "able to walk" 10/12 Reduced edema. 12/09 feet still have some swelling but "much better than previously! Still hurts to walk on them" 12/15 able to walk with min SOB and denies new edema Respiratory: WNL Except Respiratory Comment: 06/28 Reports "I don't need it (oxygen)". Wears anywhere from 2-4 L when he does wear it. He states pox 86% on avg and instructed he should have it at 89 or more. Review se of low o2 could be SOB confusion. Is on adempas and the pharmacy has a person from [facility] assess his bp prior to renewing or increasing dose. He notes prior bps were 140/80 but now 120/80 and was once 88/48 but no dizzyness. Instruct not to take with his magnesium. 07/06 Wears 2-4 L PRN, he tollerates longer periods without O2. Checks his O2 sats regularly, maintaining 89-91% on RA for extended periods. 07/14 sats 90% yest in clinic on 4 L; stress importance of wearing 24/7 and for helping PVD. denies sob, Enc cdb to prevent pneumonia 07/21 denies sob but act is still limited 08/09 uses O2 24/7. Had resp come and change out his tubing and mask and feels like he is breathing better. Still not able to do alot of activity but does walk around the apart some. 08/17 WEaring O2 most of time now as he was recently to ER with AMS without his O2. states "I learned my lesson the hard way". Denies SOB, cough 10/04 Wears O2 at all times. Enc to be aware of tubing 10/12 Denies SOB 11/23 Wearing 4L O2. 12/09 Cont to wear O2 4L and sometimes get SOB if I try to do much 12/15 walked with PT and states sats were 90% when he stopped to check. Denies s/s pneumonia but review with him and enc to report early. Had f/u with cardio and pulm with "A+" report. Next f/u in 6 mos GI: Nutrition: WNL Except GI Comment: 06/28 reports never liked much salt. primary fresh fruit and vegies. He only restricted fluids when his legs were edematous. Enc him to limit to 2L due to CHF dx. Not a smoker, Cant remember last etoh drink. Only a cup of coffee rarely. Little fat in diet 07/06 reinforced 2L fluid restriction. 07/13 c/o chronic constipation, review colace, miralaxand fiber. "Need to drink" whentold to restrict to 2 L a day 07/21 cont. to recommend 2 L restriction 08/09 went over low salt diet and 2L fluid restriction. 08/17 no constip with iron, actually getting looseer and back to nromal 09/09 Reinforced fluid restriction. "I cut back on my fluids when my legs begin to swell." Wt Gain/Loss: WNL Except Weight Comment: needs daily wt 07/06 He says his weights are doing "real good", but can't remember his last weight, that was a few days ago. I stressed the importance of daily weights. 07/14 reports up to 141 now . asked if it was water wt as lasix can only help with limited amount 08/09 does not weight daily but trys to wt ever other day and it has been staying the same but states if he starts to gain he will call 08/17 wt was 133 when he was sick but is trying to gain wt and is now 142; denies it is fluid wt as he has no edema or SOB 09/09 He has not weighed recently. I explained the importance of daily weights. 10/04 still does not Wt. Repeated the importance 12/09 Not weighing. Stressed how important it was to weigh. I asked to talk to the aide that stays with him and he said she wasn't there yet 12/15 states 4-5# under his nl wt. Enc to wt daily to recognize early edema Constipation?: No : WNL Musculoskeletal, Exercise: WNL Except Musculoskeletal, Excercise Com: 06/28 with less pain states he can walk better/more. Enc to keep walking to improve circulation/pain 07/06 Increased foot pain, "feels like I am walking on gravel". Dr Yarbrough ordered a cream for this during his last visit, but he was unable to get it due to cost. 08/09 feet and legs remain very sensitive to touch or walking. Tries to walk around the apart some in order to get some exercise "my feet hurt like heck--no words to explain how they hurt"- 08/17 taking lyrica now too and able to walk with less pain. has PT from [facility] 09/09 He can only be on his feet for about ten minutes due to neuropathy pain. 10/04 states the pain is improved and he is walking more since the swelling in legs have gone down. 10/12 Reduced swelling and foot pain are allowing him to be more active, get out of the house. 11/23 Foot pain continues, limiting activity. 12/09 Foot pain continues but "I try to get around the best I cvn" Mobility/Falls: WNL Except Mobility Comment: 07/06 He can only walk short distances due to foot pain. 07/14 reports he lost his balance and fell at home. has stairs to climb and his legs buckle if he has to carry something. Knows exercises he can do in his chair to help maintain strength andmobility. enc to do them or return to PT. 08/17 trying to use a cane more 09/20 He had an "arthritis flare up"' and spent last week in bed. Currently at his baseline. 11/23 Using a cane in his home, has not done much since getting home yesterday. 12/15 states PT had him walk with cane and O2 and sats remained good Integumentary: WNL Except Integumentary Comment: 06/28 states "I cut the aspirin out 2-3 weeks ago...just experimenting" States he took it for years but quit because his legs beneath the knees bilat had pain, redness, drainage, edema and arms were black and blue. All symptons have been improving since quitting ASA. Asked if he thinks the duloxetine and hydroxyzine have helped and may be the reason his sx have improved. REcomended he ask Dr before quitting any med and that he ask him if he should resume since he has had stents in the past and that ASA was supposed to prevent platelets from clogging his stents. Has appt with Dr Reese for allergy testing 07/13 07/06 Left leg wound, [facility] is discharging him, and he dosn't know how this wound will get cared for. 07/14 saw ENT yesterday who is getting f/u on a biopsy, will return on 07/21 07/21 KOBI Reese told him he had 100's allergies and will start shots 1-2 x a week. states leg wound cont. to get better and no s/s infection 08/17 saw randy Gill, and started new lina that is helping a lot; his sores are healing now Feeling of Well Being: WNL Except Feeling of Well Being Comment: 06/28 felt bad after going to [facility]. Lost his job. Now is a "shut in" but he can drive now. 07/06 "I can't walk or work, medical costs are going up, I guess I'll live until I run out of money." 07/14 reports cant afford $200 copay for newlyrica. States "tired of living like this" and "this isn't living". will trylyrica 07/21 pain is better and sounds more energetic 08/17 Cutting his hair today and this is his best day since Mar. Less pain and more mobility. states salvador made him get a life alert button and he is wearing it now 09/09 "All I do is sit and look out the window. I'm single, don't have any family, and don't really have any reason to want to go on." 09/20 He is less depressed than 09/09, but stated, "Nobody calls to check on me." 10/12 He is in a good mood, feeling good about being able to be more active. 11/23 He feels good to be home, but is weary of doing very much. Socialization: WNL Except Socialization Comment: 07/06 Not getting out of his house. 10/12 He is getting out of the house. 11/23 Friends rthere to see him today. Pain/Management: WNL Except Pain/Management Comment: 06/28 improving in legs with duloxetine and stopping his ASA about the same time 07/06 Unable to walk more than about 50 ft due to pain in his feet. "I feel like I am walking on gravel." He was unable to fill a script for a cream to help with this. 07/14 has new rx for percocet bid. enc to keep legs elevated 07/21 pain better and able to walk more 08/17 better today with lyrica routinely 09/09 Neuropathy pain is worse, limiting mobility. 09/20 decreased neuropthy pain. 10/12 minimal pain. 11/23 Foot pain. 12/15 foot pain persistent. may go to inside sales manager in [place] as recommended Scheduled Follow-Up with [facility]: Yes (11/[address] Baez [id number]/ [id number] De Los Santos-Cardiac. Donor Services Coordinator and don't see either again for 6 mo. 'Just recently saw Dr Arana) Community Resources/HHC: 06/28 states Eliane from [facility] pharmacy visits him for adempas refill and to increasing dose .5mg each refill. 07/06 [facility] discharged him. 07/14 sees [facility] in 2 wk. His nurse to make f/u with cardio and pulm 08/17 states he has appt today 10/04 going to change DrsJulienne from [facility] to Dr. Arana has an appt w her this week Questions for Future PCP Visit: 06/28 Has stopped ASA on his own. Should he resume? Duloxetine started about the same time and symptoms have improved, should it be continued? Is it safe to go without O2 prn thru the day? He reports lowered bp and edema with adempas use. Insomnia? 07/06 Need for anticoagulation? Neuropathy pain in his feet? 07/14 PT for weakness and fall? Ability to pay $200 copay for lyrica. Pt states he "needs to drink " but is on 2 L fluid restriction for CHF; please clarify with pt. f/u for statement that "I'm tired of living like this". Referral to [place] specialist in [place] for a laser treatment? 4/5 Poor neuropathy pain control. Depression? /8 Arthritis pain control. Following Discharge Instructio: Yes TCM Discharge Criteria Medication Knowledge: 06/28 review some meds with him and he knows names and doses 07/21 states hes taking b vit and that may be why legs are feeling better, also taking lyrica and percocet. keeps med list up to date with ea md visit 12/15 states has appt with Sasha tomorrow to review all meds he will bring with him. Her note said to see Dr Washington to verify and assist with polypharmacy Disease Management/Concern/Wha: CHF Red/Yellow Flags: 08/09 went over the red and yellow flags of CHF Transitional Care Comment: 06/28 Refererd to [facility] due to frequency in ER. He reports feeling better since his return from [facility]. Only wearing O2 prn days and at hs. "I just turn it on to 2,3,4, I don't know the difference, and breathe". REeports leg redness, edema and scales have diminished by stopping his ASA. Enc him to discuss this with MD before self medicating as his stent is at risk of clogging. Will need reminding to limit fluids, wt q day and CHF sx to monitor and report. Agree to f/u next week 07/06 He is less mobile, due to pain. Wears O2 PRN, sats 89-91 RA. He is not taking ASA, I explained the risks. I encouraged daily weights, 2L fluid restriction. He has an appt with Dr Yarbrough on Wednesday, I encouraged him to ask about the ASA, Medications for his peripheral neuropathies. 07/21 Enc him to communicate to MD's his addition of vitamins or change to other meds. Rash being addressed by MD and leg pain better. more active and feels better. will f/u in 2 weeks 08/03, Unable to contact 08/09 States he is doing'OK" has alot of trouble getting around. His ex- sets up his meds and "by mistake got an extra lasix in his pill box" enc him to look at his pills and make sure he is taking what he needs to at that time. Not able to get out of the house much as ex- is busy and she has been helping him out alot. "Not sure if this is much of a life." 08/17 feels like this is his best day in a long time. Pain is manageable now,skin ulcers are healing. he has had f/u with PCP, derm and sees pulm today. able to be more active and eat and wear shoes. states wound on his leg is almost healed. he is aware of his balance problem and is more careful with mobility andgoes slower . agree to f/u in 2 week 08/30 unable to contact. 09/02 Left message. 09/09 Neuropathy pain is worse, mild swelling to lower extremeties. The Drs at [facility] told him he has Multiple Myeloma, he has an appt with Dr Smith tomorrow. He may be depressed. 09/13 unable to contact 09/16 unable to contact 09/18 unable to contact. 09/20He could not get out of bed last week due to "an arthritis flare up," he had to reschedule his appt with Luis for 09/30. He is debating about making an appt with Dr Huston. 10/02 unable to contact-left message. 10/04 Has an appt to see Dr Arana this week. He states he is feeling better and mentally improved since he is able to walk and get out of the home. He is driving but has several friends and his daughter checking on him. Legs better if he keeps them elevated while resting. 10/12 He is in good spirits, due to increased mobility allowed by decreased pain. He is working on cleaning out his house, and hopes to sell it, to relocating to a lower elevation, warmer climate. This winter was very hard on him emotionally, and he needs a climate that is more condusive to activity, and easier breathing. 10/14 Meño was admitted to [facility]. 10/16 Transferred to [facility] for further cardic workup. 11/04 Saw him on ECF this morning, he was very drowsy, and had a hard time staying awake. We discussed his plan to return home and his ECF goals to get him there. 11/23 He went home from [facility] yesterday. On 4L O2, moving safely in his home with a cane. He is going to [facility] to mushroom picker his prescriptions this morning. I reviewed his discharge instructions, and medications. He has an Appt with Dr Baez tomorrow. 11/29,, unable to contact. 12/03 Meño with PT/HH at this time but states he is improving "slow process" . Explanined to him that we have been trying to contact him since dc. states "I'm JENA and sometimes don't hear the phone". Will try to contact again later. 12/07 unable to contact-left message 12/09 visited michelle Meño today. He has been to Drs and has aides from [employer] around the clock. 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 "I changed PCP to Dr Arana and I realy like her." 12/15 Sounds happier on phone with progress in strength and mobility; looking forward to continued slow improvement SKIP TAM Dec 15, 2017 10:59
[2017-12-20] MEDS ORDERED: PREG50CA48 PO (13:24)
[2017-12-20] MEDS ORDERED: CAR6.25 PO (13:28)
[2017-12-20] MEDS ORDERED: DULO60CA56 PO (13:33)
--- NOTE | 2017-12-22 15:37 | Transitional Care Management ---
Assessment Cardiac: WNL Except Cardiac Comment: 06/28 Reports hes managing CHF with lasix 2 tab in am and 1 in pm. Is taking his bp med bid. Ulices wrap legs or use comp socks as his legs were too tender but, keeps them elevated above his heart when in his recliner 07/06 No edema, lasix continues. He is not taking any asprin. 07/13 states legs "not swollen" but wt increasing. taking lasix bid, ulices wear comp socks, "skin sensitive to touch" too painful to place 07/21 denies edema, sob or wt gain 08/09 Denies CP. states LE bilaterily are still swollen, red and very sensitive to touch. Unable to weat HARDY hose. 08/17 Best day since my fpc" No edema and able to wear socks and shoes. Taking lasix 40 bid 09/09 A little bit of edema in his feet/lower legs. 10/04 States legs-swelling and cellulitis doing better "able to walk" 10/12 Reduced edema. 12/09 feet still have some swelling but "much better than previously! Still hurts to walk on them" 12/15 able to walk with min SOB and denies new edema Respiratory: WNL Except Respiratory Comment: 06/28 Reports "I don't need it (oxygen)". Wears anywhere from 2-4 L when he does wear it. He states pox 86% on avg and instructed he should have it at 89 or more. Review se of low o2 could be SOB confusion. Is on adempas and the pharmacy has a person from [facility] assess his bp prior to renewing or increasing dose. He notes prior bps were 140/80 but now 120/80 and was once 88/48 but no dizzyness. Instruct not to take with his magnesium. 07/06 Wears 2-4 L PRN, he tollerates longer periods without O2. Checks his O2 sats regularly, maintaining 89-91% on RA for extended periods. 07/14 sats 90% yest in clinic on 4 L; stress importance of wearing 24/7 and for helping PVD. denies sob, Enc cdb to prevent pneumonia 07/21 denies sob but act is still limited 08/09 uses O2 24/7. Had resp come and change out his tubing and mask and feels like he is breathing better. Still not able to do alot of activity but does walk around the apart some. 08/17 WEaring O2 most of time now as he was recently to ER with AMS without his O2. states "I learned my lesson the hard way". Denies SOB, cough 10/04 Wears O2 at all times. Enc to be aware of tubing 10/12 Denies SOB 11/23 Wearing 4L O2. 12/09 Cont to wear O2 4L and sometimes get SOB if I try to do much 12/15 walked with PT and states sats were 90% when he stopped to check. Denies s/s pneumonia but review with him and enc to report early. Had f/u with cardio and pulm with "A+" report. Next f/u in 6 mos GI: Nutrition: WNL Except GI Comment: 06/28 reports never liked much salt. primary fresh fruit and vegies. He only restricted fluids when his legs were edematous. Enc him to limit to 2L due to CHF dx. Not a smoker, Cant remember last etoh drink. Only a cup of coffee rarely. Little fat in diet 07/06 reinforced 2L fluid restriction. 07/13 c/o chronic constipation, review colace, miralaxand fiber. "Need to drink" whentold to restrict to 2 L a day 07/21 cont. to recommend 2 L restriction 08/09 went over low salt diet and 2L fluid restriction. 08/17 no constip with iron, actually getting looseer and back to nromal 09/09 Reinforced fluid restriction. "I cut back on my fluids when my legs begin to swell." Wt Gain/Loss: WNL Except Weight Comment: needs daily wt 07/06 He says his weights are doing "real good", but can't remember his last weight, that was a few days ago. I stressed the importance of daily weights. 07/14 reports up to 141 now . asked if it was water wt as lasix can only help with limited amount 08/09 does not weight daily but trys to wt ever other day and it has been staying the same but states if he starts to gain he will call 08/17 wt was 133 when he was sick but is trying to gain wt and is now 142; denies it is fluid wt as he has no edema or SOB 09/09 He has not weighed recently. I explained the importance of daily weights. 10/04 still does not Wt. Repeated the importance 12/09 Not weighing. Stressed how important it was to weigh. I asked to talk to the aide that stays with him and he said she wasn't there yet 12/15 states -# under his nl wt. Enc to wt daily to recognize early edema Constipation?: No : WNL Musculoskeletal, Exercise: WNL Except Musculoskeletal, Excercise Com: 06/28 with less pain states he can walk better/more. Enc to keep walking to improve circulation/pain 07/06 Increased foot pain, "feels like I am walking on gravel". Dr Yarbrough ordered a cream for this during his last visit, but he was unable to get it due to cost. 08/09 feet and legs remain very sensitive to touch or walking. Tries to walk around the apart some in order to get some exercise "my feet hurt like heck--no words to explain how they hurt"- 08/17 taking lyrica now too and able to walk with less pain. has PT from [facility] 09/09 He can only be on his feet for about ten minutes due to neuropathy pain. 10/04 states the pain is improved and he is walking more since the swelling in legs have gone down. 10/12 Reduced swelling and foot pain are allowing him to be more active, get out of the house. 11/23 Foot pain continues, limiting activity. 12/09 Foot pain continues but "I try to get around the best I cvn" Mobility/Falls: WNL Except Mobility Comment: 07/06 He can only walk short distances due to foot pain. 07/14 reports he lost his balance and fell at home. has stairs to climb and his legs buckle if he has to carry something. Knows exercises he can do in his chair to help maintain strength andmobility. enc to do them or return to PT. 08/17 trying to use a cane more 09/20 He had an "arthritis flare up"' and spent last week in bed. Currently at his baseline. 11/23 Using a cane in his home, has not done much since getting home yesterday. 12/15 states PT had him walk with cane and O2 and sats remained good Integumentary: WNL Except Integumentary Comment: 06/28 states "I cut the aspirin out 2-3 weeks ago...just experimenting" States he took it for years but quit because his legs beneath the knees bilat had pain, redness, drainage, edema and arms were black and blue. All symptons have been improving since quitting ASA. Asked if he thinks the duloxetine and hydroxyzine have helped and may be the reason his sx have improved. REcomended he ask Dr before quitting any med and that he ask him if he should resume since he has had stents in the past and that ASA was supposed to prevent platelets from clogging his stents. Has appt with Dr Reese for allergy testing 07/13 07/06 Left leg wound, [facility] is discharging him, and he dosn't know how this wound will get cared for. 07/14 saw ENT yesterday who is getting f/u on a biopsy, will return on 07/21 07/21 ENT Hugh told him he had 100's allergies and will start shots 1-2 x a week. states leg wound cont. to get better and no s/s infection 08/17 saw randy Gill, and started new lina that is helping a lot; his sores are healing now Feeling of Well Being: WNL Except Feeling of Well Being Comment: 06/28 felt bad after going to [facility]. Lost his job. Now is a "shut in" but he can drive now. 07/06 "I can't walk or work, medical costs are going up, I guess I'll live until I run out of money." 07/14 reports cant afford $200 copay for newlyrica. States "tired of living like this" and "this isn't living". will trylyrica 07/21 pain is better and sounds more energetic 08/17 Cutting his hair today and this is his best day since Mar. Less pain and more mobility. states salvador made him get a life alert button and he is wearing it now 09/09 "All I do is sit and look out the window. I'm single, don't have any family, and don't really have any reason to want to go on." 09/20 He is less depressed than 09/09, but stated, "Nobody calls to check on me." 10/12 He is in a good mood, feeling good about being able to be more active. 11/23 He feels good to be home, but is weary of doing very much. Socialization: WNL Except Socialization Comment: 07/06 Not getting out of his house. 10/12 He is getting out of the house. 11/23 Friends rthere to see him today. Pain/Management: WNL Except Pain/Management Comment: 06/28 improving in legs with duloxetine and stopping his ASA about the same time 07/06 Unable to walk more than about 50 ft due to pain in his feet. "I feel like I am walking on gravel." He was unable to fill a script for a cream to help with this. 07/14 has new rx for percocet bid. enc to keep legs elevated 07/21 pain better and able to walk more 08/17 better today with lyrica routinely 09/09 Neuropathy pain is worse, limiting mobility. 09/20 decreased neuropthy pain. 10/12 minimal pain. 11/23 Foot pain. 12/15 foot pain persistent. may go to legal analyst in [place] as recommended Scheduled Follow-Up with [facility]: Yes (11/[address] Baez [id number]/ [id number] De Los Santos-Cardiac. Refueler and don't see either again for 6 mo. 'Just recently saw Dr Arana) Community Resources/HHC: 06/28 states Eliane from [facility] pharmacy visits him for adempas refill and to increasing dose .5mg each refill. 07/06 [facility] discharged him. 07/14 sees [facility] in 2 wk. His nurse to make f/u with cardio and pulm 08/17 states he has appt today 10/04 going to change DrsJulienne from [facility] to Dr. Arana has an appt w her this week Questions for Future PCP Visit: 06/28 Has stopped ASA on his own. Should he resume? Duloxetine started about the same time and symptoms have improved, should it be continued? Is it safe to go without O2 prn thru the day? He reports lowered bp and edema with adempas use. Insomnia? 07/06 Need for anticoagulation? Neuropathy pain in his feet? 07/14 PT for weakness and fall? Ability to pay $200 copay for lyrica. Pt states he "needs to drink " but is on 2 L fluid restriction for CHF; please clarify with pt. f/u for statement that "I'm tired of living like this". Referral to [place] specialist in [place] for a laser treatment? 4/5 Poor neuropathy pain control. Depression? /8 Arthritis pain control. Following Discharge Instructio: Yes TCM Discharge Criteria Medication Knowledge: 06/28 review some meds with him and he knows names and doses 07/21 states hes taking b vit and that may be why legs are feeling better, also taking lyrica and percocet. keeps med list up to date with ea md visit 12/15 states has appt with Sasha tomorrow to review all meds he will bring with him. Her note said to see Dr Washington to verify and assist with polypharmacy Disease Management/Concern/Wha: CHF Red/Yellow Flags: 08/09 went over the red and yellow flags of CHF Transitional Care Comment: 06/28 Refererd to [facility] due to frequency in ER. He reports feeling better since his return from [place]. Only wearing O2 prn days and at hs. "I just turn it on to 2,3,4, I don't know the difference, and breathe". REeports leg redness, edema and scales have diminished by stopping his ASA. Enc him to discuss this with MD before self medicating as his stent is at risk of clogging. Will need reminding to limit fluids, wt q day and CHF sx to monitor and report. Agree to f/u next week 07/06 He is less mobile, due to pain. Wears O2 PRN, sats 89-91 RA. He is not taking ASA, I explained the risks. I encouraged daily weights, 2L fluid restriction. He has an appt with Dr Yarbrough on Wednesday, I encouraged him to ask about the ASA, Medications for his peripheral neuropathies. 07/21 Enc him to communicate to MD's his addition of vitamins or change to other meds. Rash being addressed by MD and leg pain better. more active and feels better. will f/u in 2 weeks 08/03, Unable to contact 08/09 States he is doing'OK" has alot of trouble getting around. His ex- sets up his meds and "by mistake got an extra lasix in his pill box" enc him to look at his pills and make sure he is taking what he needs to at that time. Not able to get out of the house much as ex- is busy and she has been helping him out alot. "Not sure if this is much of a life." 08/17 feels like this is his best day in a long time. Pain is manageable now,skin ulcers are healing. he has had f/u with PCP, derm and sees pulm today. able to be more active and eat and wear shoes. states wound on his leg is almost healed. he is aware of his balance problem and is more careful with mobility andgoes slower . agree to f/u in 2 week 08/30 unable to contact. 09/02 Left message. 09/09 Neuropathy pain is worse, mild swelling to lower extremeties. The Drs at [place] told him he has Multiple Myeloma, he has an appt with Dr Smith tomorrow. He may be depressed. 09/13 unable to contact 09/16 unable to contact 09/18 unable to contact. 09/20He could not get out of bed last week due to "an arthritis flare up," he had to reschedule his appt with Luis for 09/30. He is debating about making an appt with Dr Huston. 10/02 unable to contact-left message. 10/04 Has an appt to see Dr Arana this week. He states he is feeling better and mentally improved since he is able to walk and get out of the home. He is driving but has several friends and his daughter checking on him. Legs better if he keeps them elevated while resting. 10/12 He is in good spirits, due to increased mobility allowed by decreased pain. He is working on cleaning out his house, and hopes to sell it, to relocating to a lower elevation, warmer climate. This winter was very hard on him emotionally, and he needs a climate that is more condusive to activity, and easier breathing. 10/14 Meño was admitted to [facility]. 10/16 Transferred to [facility] for further cardic workup. 11/04 Saw him on ECF this morning, he was very drowsy, and had a hard time staying awake. We discussed his plan to return home and his ECF goals to get him there. 11/23 He went home from [facility] yesterday. On 4L O2, moving safely in his home with a cane. 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 I reviewed his discharge instructions, and medications. He has an Appt with Dr Baez tomorrow. 11/29,, unable to contact. 12/03 Meño with PT/HH at this time but states he is improving "slow process" . Explanined to him that we have been trying to contact him since dc. states "I'm [place] and sometimes don't hear the phone". Will try to contact again later. 12/07 unable to contact-left message 12/09 visited michelle Meño today. He has been to Drs and has aides from [employer] around the clock. 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 "I changed PCP to Dr Arana and I realy like her." 12/15 Sounds happier on phone with progress in strength and mobility; looking forward to continued slow improvement 12/[address] to [address] Dec 22, 2017 15:37
--- NOTE | 2017-12-27 11:46 | Transitional Care Management ---
Assessment Cardiac: WNL Except Cardiac Comment: 06/28 Reports hes managing CHF with lasix 2 tab in am and 1 in pm. Is taking his bp med bid. Ulices wrap legs or use comp socks as his legs were too tender but, keeps them elevated above his heart when in his recliner 07/06 No edema, lasix continues. He is not taking any asprin. 07/13 states legs "not swollen" but wt increasing. taking lasix bid, ulices wear comp socks, "skin sensitive to touch" too painful to place 07/21 denies edema, sob or wt gain 08/09 Denies CP. states LE bilaterily are still swollen, red and very sensitive to touch. Unable to weat HARDY hose. 08/17 Best day since my [place] [facility]" No edema and able to wear socks and shoes. Taking lasix 40 bid 09/09 A little bit of edema in his feet/lower legs. 10/04 States legs-swelling and cellulitis doing better "able to walk" 10/12 Reduced edema. 12/09 feet still have some swelling but "much better than previously! Still hurts to walk on them" 12/15 able to walk with min SOB and denies new edema Respiratory: WNL Except Respiratory Comment: 06/28 Reports "I don't need it (oxygen)". Wears anywhere from 2-4 L when he does wear it. He states pox 86% on avg and instructed he should have it at 89 or more. Review se of low o2 could be SOB confusion. Is on adempas and the pharmacy has a person from [place] assess his bp prior to renewing or increasing dose. He notes prior bps were 140/80 but now 120/80 and was once 88/48 but no dizzyness. Instruct not to take with his magnesium. 07/06 Wears 2-4 L PRN, he tollerates longer periods without O2. Checks his O2 sats regularly, maintaining 89-91% on RA for extended periods. 07/14 sats 90% yest in clinic on 4 L; stress importance of wearing 24/7 and for helping PVD. denies sob, Enc cdb to prevent pneumonia 07/21 denies sob but act is still limited 08/09 uses O2 24/7. Had resp come and change out his tubing and mask and feels like he is breathing better. Still not able to do alot of activity but does walk around the apart some. 08/17 WEaring O2 most of time now as he was recently to ER with AMS without his O2. states "I learned my lesson the hard way". Denies SOB, cough 10/04 Wears O2 at all times. Enc to be aware of tubing 10/12 Denies SOB 11/23 Wearing 4L O2. 12/09 Cont to wear O2 4L and sometimes get SOB if I try to do much 12/15 walked with PT and states sats were 90% when he stopped to check. Denies s/s pneumonia but review with him and enc to report early. Had f/u with cardio and pulm with "A+" report. Next f/u in 6 mos GI: Nutrition: WNL Except GI Comment: 06/28 reports never liked much salt. primary fresh fruit and vegies. He only restricted fluids when his legs were edematous. Enc him to limit to 2L due to CHF dx. Not a smoker, Cant remember last etoh drink. Only a cup of coffee rarely. Little fat in diet 07/06 reinforced 2L fluid restriction. 07/13 c/o chronic constipation, review colace, miralaxand fiber. "Need to drink" whentold to restrict to 2 L a day 07/21 cont. to recommend 2 L restriction 08/09 went over low salt diet and 2L fluid restriction. 08/17 no constip with iron, actually getting looseer and back to nromal 09/09 Reinforced fluid restriction. "I cut back on my fluids when my legs begin to swell." Wt Gain/Loss: WNL Except Weight Comment: needs daily wt 07/06 He says his weights are doing "real good", but can't remember his last weight, that was a few days ago. I stressed the importance of daily weights. 07/14 reports up to 141 now . asked if it was water wt as lasix can only help with limited amount 08/09 does not weight daily but trys to wt ever other day and it has been staying the same but states if he starts to gain he will call 08/17 wt was 133 when he was sick but is trying to gain wt and is now 142; denies it is fluid wt as he has no edema or SOB 09/09 He has not weighed recently. I explained the importance of daily weights. 10/04 still does not Wt. Repeated the importance 12/09 Not weighing. Stressed how important it was to weigh. I asked to talk to the aide that stays with him and he said she wasn't there yet 12/15 states -# under his nl wt. Enc to wt daily to recognize early edema Constipation?: No : WNL Musculoskeletal, Exercise: WNL Except Musculoskeletal, Excercise Com: 06/28 with less pain states he can walk better/more. Enc to keep walking to improve circulation/pain 07/06 Increased foot pain, "feels like I am walking on gravel". Dr Yarbrough ordered a cream for this during his last visit, but he was unable to get it due to cost. 08/09 feet and legs remain very sensitive to touch or walking. Tries to walk around the apart some in order to get some exercise "my feet hurt like heck--no words to explain how they hurt"- 08/17 taking lyrica now too and able to walk with less pain. has PT from [facility] 09/09 He can only be on his feet for about ten minutes due to neuropathy pain. 10/04 states the pain is improved and he is walking more since the swelling in legs have gone down. 10/12 Reduced swelling and foot pain are allowing him to be more active, get out of the house. 11/23 Foot pain continues, limiting activity. 12/09 Foot pain continues but "I try to get around the best I cvn" Mobility/Falls: WNL Except Mobility Comment: 07/06 He can only walk short distances due to foot pain. 07/14 reports he lost his balance and fell at home. has stairs to climb and his legs buckle if he has to carry something. Knows exercises he can do in his chair to help maintain strength andmobility. enc to do them or return to PT. 08/17 trying to use a cane more 09/20 He had an "arthritis flare up"' and spent last week in bed. Currently at his baseline. 11/23 Using a cane in his home, has not done much since getting home yesterday. 12/15 states PT had him walk with cane and O2 and sats remained good Integumentary: WNL Except Integumentary Comment: 06/28 states "I cut the aspirin out 2-3 weeks ago...just experimenting" States he took it for years but quit because his legs beneath the knees bilat had pain, redness, drainage, edema and arms were black and blue. All symptons have been improving since quitting ASA. Asked if he thinks the duloxetine and hydroxyzine have helped and may be the reason his sx have improved. REcomended he ask Dr before quitting any med and that he ask him if he should resume since he has had stents in the past and that ASA was supposed to prevent platelets from clogging his stents. Has appt with Dr Reese for allergy testing 07/13 07/06 Left leg wound, [facility] is discharging him, and he dosn't know how this wound will get cared for. 07/14 saw ENT yesterday who is getting f/u on a biopsy, will return on 07/21 07/21 ENT Hugh told him he had 100's allergies and will start shots 1-2 x a week. states leg wound cont. to get better and no s/s infection 08/17 saw randy Gill, and started new lina that is helping a lot; his sores are healing now Feeling of Well Being: WNL Except Feeling of Well Being Comment: 06/28 felt bad after going to [facility]. Lost his job. Now is a "shut in" but he can drive now. 07/06 "I can't walk or work, medical costs are going up, I guess I'll live until I run out of money." 07/14 reports cant afford $200 copay for newlyrica. States "tired of living like this" and "this isn't living". will trylyrica 07/21 pain is better and sounds more energetic 08/17 Cutting his hair today and this is his best day since Mar. Less pain and more mobility. states salvador made him get a life alert button and he is wearing it now 09/09 "All I do is sit and look out the window. I'm single, don't have any family, and don't really have any reason to want to go on." 09/20 He is less depressed than 09/09, but stated, "Nobody calls to check on me." 10/12 He is in a good mood, feeling good about being able to be more active. 11/23 He feels good to be home, but is weary of doing very much. Socialization: WNL Except Socialization Comment: 07/06 Not getting out of his house. 10/12 He is getting out of the house. 11/23 Friends rthere to see him today. Pain/Management: WNL Except Pain/Management Comment: 06/28 improving in legs with duloxetine and stopping his ASA about the same time 07/06 Unable to walk more than about 50 ft due to pain in his feet. "I feel like I am walking on gravel." He was unable to fill a script for a cream to help with this. 07/14 has new rx for percocet bid. enc to keep legs elevated 07/21 pain better and able to walk more 08/17 better today with lyrica routinely 09/09 Neuropathy pain is worse, limiting mobility. 09/20 decreased neuropthy pain. 10/12 minimal pain. 11/23 Foot pain. 12/15 foot pain persistent. 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 Manager Poker and don't see either again for 6 mo. 'Just recently saw Dr Arana) Community Resources/HHC: 06/28 states Eliane from [facility] pharmacy visits him for adempas refill and to increasing dose .5mg each refill. 07/06 [facility] discharged him. 07/14 sees [facility] in 2 wk. His nurse to make f/u with cardio and pulm 08/17 states he has appt today 10/04 going to change DrsJulienne from [facility] to Dr. Arana has an appt w her this week Questions for Future PCP Visit: 06/28 Has stopped ASA on his own. Should he resume? Duloxetine started about the same time and symptoms have improved, should it be continued? Is it safe to go without O2 prn thru the day? He reports lowered bp and edema with adempas use. Insomnia? 07/06 Need for anticoagulation? Neuropathy pain in his feet? 07/14 PT for weakness and fall? Ability to pay $200 copay for lyrica. Pt states he "needs to drink " but is on 2 L fluid restriction for CHF; please clarify with pt. f/u for statement that "I'm tired of living like this". Referral to [place] specialist in [place] for a laser treatment? 4/5 Poor neuropathy pain control. Depression? /8 Arthritis pain control. Following Discharge Instructio: Yes TCM Discharge Criteria Medication Knowledge: 06/28 review some meds with him and he knows names and doses 07/21 states hes taking b vit and that may be why legs are feeling better, also taking lyrica and percocet. keeps med list up to date with ea md visit 12/15 states has appt with Sasha tomorrow to review all meds he will bring with him. Her note said to see Dr Washington to verify and assist with polypharmacy Disease Management/Concern/Wha: CHF Red/Yellow Flags: 08/09 went over the red and yellow flags of CHF Transitional Care Comment: 06/28 Refererd to [facility] due to frequency in ER. He reports feeling better since his return from [place]. Only wearing O2 prn days and at hs. "I just turn it on to 2,3,4, I don't know the difference, and breathe". REeports leg redness, edema and scales have diminished by stopping his ASA. Enc him to discuss this with MD before self medicating as his stent is at risk of clogging. Will need reminding to limit fluids, wt q day and CHF sx to monitor and report. Agree to f/u next week 07/06 He is less mobile, due to pain. Wears O2 PRN, sats 89-91 RA. He is not taking ASA, I explained the risks. I encouraged daily weights, 2L fluid restriction. He has an appt with Dr Yarbrough on Wednesday, I encouraged him to ask about the ASA, Medications for his peripheral neuropathies. 07/21 Enc him to communicate to MD's his addition of vitamins or change to other meds. Rash being addressed by MD and leg pain better. more active and feels better. will f/u in 2 weeks 08/03, Unable to contact 08/09 States he is doing'OK" has alot of trouble getting around. His ex- sets up his meds and "by mistake got an extra lasix in his pill box" enc him to look at his pills and make sure he is taking what he needs to at that time. Not able to get out of the house much as ex- is busy and she has been helping him out alot. "Not sure if this is much of a life." 08/17 feels like this is his best day in a long time. Pain is manageable now,skin ulcers are healing. he has had f/u with PCP, derm and sees pulm today. able to be more active and eat and wear shoes. states wound on his leg is almost healed. he is aware of his balance problem and is more careful with mobility andgoes slower . agree to f/u in 2 week 08/30 unable to contact. 09/02 Left message. 09/09 Neuropathy pain is worse, mild swelling to lower extremeties. The Drs at [facility] told him he has Multiple Myeloma, he has an appt with Dr Smith tomorrow. He may be depressed. 09/13 unable to contact 09/16 unable to contact 09/18 unable to contact. 09/20He could not get out of bed last week due to "an arthritis flare up," he had to reschedule his appt with Luis for 09/30. He is debating about making an appt with Dr Huston. 10/02 unable to contact-left message. 10/04 Has an appt to see Dr Arana this week. He states he is feeling better and mentally improved since he is able to walk and get out of the home. He is driving but has several friends and his daughter checking on him. Legs better if he keeps them elevated while resting. 10/12 He is in good spirits, due to increased mobility allowed by decreased pain. He is working on cleaning out his house, and hopes to sell it, to relocating to a lower elevation, warmer climate. This winter was very hard on him emotionally, and he needs a climate that is more condusive to activity, and easier breathing. 10/14 Meño was admitted to [facility]. 10/16 Transferred to [facility] for further cardic workup. 11/04 Saw him on [facility] this morning, he was very drowsy, and had a hard time staying awake. We discussed his plan to return home and his [facility] goals to get him there. 11/23 He went home from [facility] yesterday. On 4L O2, moving safely in his home with a cane. He is going to [facility] his prescriptions this morning. I reviewed his discharge instructions, and medications. He has an Appt with Dr Baez tomorrow. 11/29,, unable to contact. 12/03 Meño with PT/HH at this time but states he is improving "slow process" . Explanined to him that we have been trying to contact him since dc. states "I'm [place] and sometimes don't hear the phone". Will try to contact again later. 12/07 unable to contact-left message 12/09 visited w Meño today. He has been to Drs and has aides from [employer] around the clock. 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 "I changed PCP to Dr Arana and I realy like her." 12/15 Sounds happier on phone with progress in strength and mobility; looking forward to continued slow improvement 12/22 unable to contact 12/23 unable to contact. 12/27 He was needing to leave for an appt, the call was very brief. I will try again this afternoon. DEYSI DOOLEY Dec 27, 2017 11:46
--- NOTE | 2017-12-28 13:21 | Transitional Care Management ---
Assessment Visit Type: Telephone Visit Spoke with: Meño Cardiac: WNL Except Cardiac Comment: 06/28 Reports hes managing CHF with lasix 2 tab in am and 1 in pm. Is taking his bp med bid. Ulices wrap legs or use comp socks as his legs were too tender but, keeps them elevated above his heart when in his recliner 07/06 No edema, lasix continues. He is not taking any asprin. 07/13 states legs "not swollen" but wt increasing. taking lasix bid, cant wear comp socks, "skin sensitive to touch" too painful to place 07/21 denies edema, sob or wt gain 08/09 Denies CP. states LE bilaterily are still swollen, red and very sensitive to touch. Unable to weat HARDY hose. 08/17 Best day since my [facility]" No edema and able to wear socks and shoes. Taking lasix 40 bid 09/09 A little bit of edema in his feet/lower legs. 10/04 States legs-swelling and cellulitis doing better "able to walk" 10/12 Reduced edema. 12/09 feet still have some swelling but "much better than previously! Still hurts to walk on them" 12/15 able to walk with min SOB and denies new edema 12/28 had cardio f/u and got a "thumbs up". better controlled bp's Respiratory: WNL Except Respiratory Comment: 06/28 Reports "I don't need it (oxygen)". Wears anywhere from 2-4 L when he does wear it. He states pox 86% on avg and instructed he should have it at 89 or more. Review se of low o2 could be SOB confusion. Is on adempas and the pharmacy has a person from [place] assess his bp prior to renewing or increasing dose. He notes prior bps were 140/80 but now 120/80 and was once 88/48 but no dizzyness. Instruct not to take with his magnesium. 07/06 Wears 2-4 L PRN, he tollerates longer periods without O2. Checks his O2 sats regularly, maintaining 89-91% on RA for extended periods. 07/14 sats 90% yest in clinic on 4 L; stress importance of wearing 28/12 and for helping PVD. denies sob, Enc cdb to prevent pneumonia 07/21 denies sob but act is still limited 08/09 uses O2 28/12. Had resp come and change out his tubing and mask and feels like he is breathing better. Still not able to do alot of activity but does walk around the apart some. 08/17 WEaring O2 most of time now as he was recently to ER with AMS without his O2. states "I learned my lesson the hard way". Denies SOB, cough 10/04 Wears O2 at all times. Enc to be aware of tubing 10/12 Denies SOB 11/23 Wearing 4L O2. 12/09 Cont to wear O2 4L and sometimes get SOB if I try to do much 12/15 walked with PT and states sats were 90% when he stopped to check. Denies s/s pneumonia but review with him and enc to report early. Had f/u with cardio and pulm with "A+" report. Next f/u in 6 mos 12/28 walks with O2 and not a walker, states he can't walk with both. no SOB on phone GI: Nutrition: WNL Except GI Comment: 06/28 reports never liked much salt. primary fresh fruit and vegies. He only restricted fluids when his legs were edematous. Enc him to limit to 2L due to CHF dx. Not a smoker, Cant remember last etoh drink. Only a cup of coffee rarely. Little fat in diet 07/06 reinforced 2L fluid restriction. 07/13 c/o chronic constipation, review colace, miralaxand fiber. "Need to drink" whentold to restrict to 2 L a day 07/21 cont. to recommend 2 L restriction 08/09 went over low salt diet and 2L fluid restriction. 08/17 no constip with iron, actually getting looseer and back to nromal 09/09 Reinforced fluid restriction. "I cut back on my fluids when my legs begin to swell." 12/28 "I'm a good drinker" Enc to limit to 2 L a day. he states his legs swell due to PVD not CHF. Explain weak heart can't pump the volume. Eats "like a bachelor" but not all bad Wt Gain/Loss: WNL Except Weight Comment: needs daily wt 07/06 He says his weights are doing "real good", but can't remember his last weight, that was a few days ago. I stressed the importance of daily weights. 07/14 reports up to 141 now . asked if it was water wt as lasix can only help with limited amount 08/09 does not weight daily but trys to wt ever other day and it has been staying the same but states if he starts to gain he will call Dr. 08/17 wt was 133 when he was sick but is trying to gain wt and is now 142; denies it is fluid wt as he has no edema or SOB 09/09 He has not weighed recently. I explained the importance of daily weights. 10/04 still does not Wt. Repeated the importance 12/09 Not weighing. Stressed how important it was to weigh. I asked to talk to the aide that stays with him and he said she wasn't there yet 12/15 states 4-5# under his nl wt. Enc to wt daily to recognize early edema 12/28 last wt #148. asked what he would do if he gained 3#; he stated he called ambulance last time but would try the MD first Constipation?: No : WNL Musculoskeletal, Exercise: WNL Except Musculoskeletal, Excercise Com: 06/28 with less pain states he can walk better/more. Enc to keep walking to improve circulation/pain 07/06 Increased foot pain, "feels like I am walking on gravel". Dr Yarbrough ordered a cream for this during his last visit, but he was unable to get it due to cost. 08/09 feet and legs remain very sensitive to touch or walking. Tries to walk around the apart some in order to get some exercise "my feet hurt like heck--no words to explain how they hurt"- 08/17 taking lyrica now too and able to walk with less pain. has PT from [facility] 09/09 He can only be on his feet for about ten minutes due to neuropathy pain. 10/04 states the pain is improved and he is walking more since the swelling in legs have gone down. 10/12 Reduced swelling and foot pain are allowing him to be more active, get out of the house. 11/23 Foot pain continues, limiting activity. 12/09 Foot pain continues but "I try to get around the best I cvn" 12/28 has PT 2 x a wk at home, reports increasing str and stamina but is slow Mobility/Falls: WNL Except Mobility Comment: 07/06 He can only walk short distances due to foot pain. 07/14 reports he lost his balance and fell at home. has stairs to climb and his legs buckle if he has to carry something. Knows exercises he can do in his chair to help maintain strength andmobility. enc to do them or return to PT. 08/17 trying to use a cane more 09/20 He had an "arthritis flare up"' and spent last week in bed. Currently at his baseline. 11/23 Using a cane in his home, has not done much since getting home yesterday. 12/15 states PT had him walk with cane and O2 and sats remained good Integumentary: WNL Except Integumentary Comment: 06/28 states "I cut the aspirin out 2-3 weeks ago...just experimenting" States he took it for years but quit because his legs beneath the knees bilat had pain, redness, drainage, edema and arms were black and blue. All symptons have been improving since quitting ASA. Asked if he thinks the duloxetine and hydroxyzine have helped and may be the reason his sx have improved. REcomended he ask Dr before quitting any med and that he ask him if he should resume since he has had stents in the past and that ASA was supposed to prevent platelets from clogging his stents. Has appt with Dr Reese for allergy testing 07/13 07/06 Left leg wound, [facility] is discharging him, and he dosn't know how this wound will get cared for. 07/14 saw ENT yesterday who is getting f/u on a biopsy, will return on 07/21 07/21 KOBI Reese told him he had 100's allergies and will start shots 1-2 x a week. states leg wound cont. to get better and no s/s infection 08/17 saw randy Gill, and started new lina that is helping a lot; his sores are healing now 12/28 states legs are healed Feeling of Well Being: WNL Except Feeling of Well Being Comment: 06/28 felt bad after going to [facility]. Lost his job. Now is a "shut in" but he can drive now. 07/06 "I can't walk or work, medical costs are going up, I guess I'll live until I run out of money." 07/14 reports cant afford $200 copay for newlyrica. States "tired of living like this" and "this isn't living". will trylyrica 07/21 pain is better and sounds more energetic 08/17 Cutting his hair today and this is his best day since Mar. Less pain and more mobility. states salvador made him get a life alert button and he is wearing it now 09/09 "All I do is sit and look out the window. I'm single, don't have any family, and don't really have any reason to want to go on." 09/20 He is less depressed than 09/09, but stated, "Nobody calls to check on me." 10/12 He is in a good mood, feeling good about being able to be more active. 11/23 He feels good to be home, but is weary of doing very much. 12/28 [facility] was $15oo a month but is cut back to just 8 Hr a wk; he is doing the rest. RENAE counseling today; enc to talk about future plans Socialization: WNL Except Socialization Comment: 07/06 Not getting out of his house. 10/12 He is getting out of the house. 11/23 Friends rthere to see him today. Pain/Management: WNL Except Pain/Management Comment: 06/28 improving in legs with duloxetine and stopping his ASA about the same time 07/06 Unable to walk more than about 50 ft due to pain in his feet. "I feel like I am walking on gravel." He was unable to fill a script for a cream to help with this. 07/14 has new rx for percocet bid. enc to keep legs elevated 07/21 pain better and able to walk more 08/17 better today with lyrica routinely 09/09 Neuropathy pain is worse, limiting mobility. 09/20 decreased neuropthy pain. 10/12 minimal pain. 11/23 Foot pain. 12/15 foot pain persistent. may go to communication engineer in [place] as recommended 12/28 toe pain unrelieved with daryn raymond, sees communication engineer 12/30 at [facility] Scheduled Follow-Up with Provi: Yes (11/[address] Baez [id number]/ [id number] De Los Santos-Cardiac. Production Supv and don't see either again for 6 mo. 'Just recently saw Dr Arana) Community Resources/C: 06/28 [facility] pharmacy visits him for adempas refill and to increasing dose .5mg each refill. 07/06 [facility] discharged him. 07/14 sees [facility] in 2 wk. His nurse to make f/u with cardio and pulm 08/17 states he has appt today 10/04 going to change DrsJulienne from [facility] to Dr. Arana has an appt w her this week 12/28 has f/u with Yasmeen 01/11, onc 01/13 Questions for Future PCP Visit: 06/28 Has stopped ASA on his own. Should he resume? Duloxetine started about the same time and symptoms have improved, should it be continued? Is it safe to go without O2 prn thru the day? He reports lowered bp and edema with adempas use. Insomnia? 07/06 Need for anticoagulation? Neuropathy pain in his feet? 07/14 PT for weakness and fall? Ability to pay $200 copay for lyrica. Pt states he "needs to drink " but is on 2 L fluid restriction for CHF; please clarify with pt. f/u for statement that "I'm tired of living like this". Referral to [place] specialist in PVD for a laser treatment? 09/09 Poor neuropathy pain control. Depression? 10/12 Arthritis pain control. Following Discharge Instructio: Yes TCM Discharge Criteria Medication Knowledge: 06/28 review some meds with him and he knows names and doses 07/21 states hes taking b vit and that may be why legs are feeling better, also taking lyrica and percocet. keeps med list up to date with danny md visit 12/15 states has appt with Sasha tomorrow to review all meds he will bring with him. Her note said to see Dr Washington to verify and assist with polypharmacy 12/28 states Felix "cleaned out themedicine box". and he is glad he can't make a mistake. reports lyrica tapering but often substituted the name lasix instead. Disease Management/Concern/Wha: CHF Red/Yellow Flags: 08/09 went over the red and yellow flags of CHF Transitional Care Comment: 06/28 Refererd to [facility] due to frequency in ER. He reports feeling better since his return from [place]. Only wearing O2 prn days and at hs. "I just turn it on to 2,3,4, I don't know the difference, and breathe". REeports leg redness, edema and scales have diminished by stopping his ASA. Enc him to discuss this with MD before self medicating as his stent is at risk of clogging. Will need reminding to limit fluids, wt q day and CHF sx to monitor and report. Agree to f/u next week 07/06 He is less mobile, due to pain. Wears O2 PRN, sats 89-91 RA. He is not taking ASA, I explained the risks. I encouraged daily weights, 2L fluid restriction. He has an appt with Dr Yarbrough on Wednesday, I encouraged him to ask about the ASA, Medications for his peripheral neuropathies. 07/21 Enc him to communicate to MD's his addition of vitamins or change to other meds. Rash being addressed by MD and leg pain better. more active and feels better. will f/u in 2 weeks Unable to contact 08/09 States he is doing'OK" has alot of trouble getting around. His ex- sets up his meds and "by mistake got an extra lasix in his pill box" enc him to look at his pills and make sure he is taking what he needs to at that time. Not able to get out of the house much as ex- is busy and she has been helping him out alot. "Not sure if this is much of a life." 08/17 feels like this is his best day in a long time. Pain is manageable now,skin ulcers are healing. he has had f/u with PCP, derm and sees pulm today. able to be more active and eat and wear shoes. states wound on his leg is almost healed. he is aware of his balance problem and is more careful with mobility andgoes slower . agree to f/u in 2 week 08/30 unable to contact. 09/02 Left message. 09/09 Neuropathy pain is worse, mild swelling to lower extremeties. The Drs at [facility] told him he has Multiple Myeloma, he has an appt with Dr Smith tomorrow. He may be depressed. 09/13 unable to contact 09/16 unable to contact 09/18 unable to contact. 09/20He could not get out of bed last week due to "an arthritis flare up," he had to reschedule his appt with Luis for 09/30. He is debating about making an appt with Dr Huston. 10/02 unable to contact-left message. 10/04 Has an appt to see Dr Arana this week. He states he is feeling better and mentally improved since he is able to walk and get out of the home. He is driving but has several friends and his daughter checking on him. Legs better if he keeps them elevated while resting. 10/12 He is in good spirits, due to increased mobility allowed by decreased pain. He is working on cleaning out his house, and hopes to sell it, to relocating to a lower elevation, warmer climate. This winter was very hard on him emotionally, and he needs a climate that is more condusive to activity, and easier breathing. 10/14 Meño was admitted to [facility]. 10/16 Transferred to [facility] for further [facility] workup. 11/04 Saw him on E[facility] this morning, he was very drowsy, and had a hard time staying awake. We discussed his plan to return home and his ECF goals to get him there. 11/23 He went home from [facility]CF yesterday. On 4L O2, moving safely in his home with a cane. He is going to [facility] to chicken picker his prescriptions this morning. I reviewed his discharge instructions, and medications. He has an Appt with Dr Baez tomorrow. 11/29,, unable to contact. 12/03 Meño with PT/HH at this time but states he is improving "slow process" . Explanined to him that we have been trying to contact him since nm. states "I'm [place] and sometimes don't hear the phone". Will try to contact again later. 12/07 unable to contact-left message 12/09 visited michelle Wilder today. He has been to Drs and has aides from [facility] [employer] around the clock. 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 "I changed PCP to Dr Arana and I realy like her." 12/15 Sounds happier on phone with progress in strength and mobility; looking forward to continued slow improvement 12/22 unable to contact 12/23 unable to contact. 12/27 He was needing to leave for an appt, the call was very brief. I will try again this afternoon. 12/28 Feeling he hasnt adjusted to [facility]; he worked everyday without a vacation for years and can't get in the swing of it. depressed at decreased mobility but admitted he is doing more just slowly. feels he has enough support and is getting f/u as ordered. SKIP TAM Dec 28, 2017 13:21
[2018-01-06] MEDS ORDERED: ROSU40TA18 PO (17:25)
[2018-01-09] MEDS ORDERED: APIX5TAB PO (18:01)
[2018-01-11] MEDS ORDERED: ACET500T68 PO (15:24)
[2018-01-11] MEDS ORDERED: DICL100G39 TOP (18:00)
[2018-01-11] MEDS ORDERED: CLOP75TA PO (18:03)
--- NOTE | 2018-01-14 11:08 | Transitional Care Management ---
Assessment Visit Type: Telephone Visit Cardiac: WNL Except Cardiac Comment: 06/28 Reports hes managing CHF with lasix 2 tab in am and 1 in pm. Is taking his bp med bid. Ulices wrap legs or use comp socks as his legs were too tender but, keeps them elevated above his heart when in his recliner 07/06 No edema, lasix continues. He is not taking any asprin. 07/13 states legs "not swollen" but wt increasing. taking lasix bid, ulices wear comp socks, "skin sensitive to touch" too painful to place 07/21 denies edema, sob or wt gain 08/09 Denies CP. states LE bilaterily are still swollen, red and very sensitive to touch. Unable to weat HARDY hose. 08/17 Best day since my skilled nursing" No edema and able to wear socks and shoes. Taking lasix 40 bid 09/09 A little bit of edema in his feet/lower legs. 10/04 States legs-swelling and cellulitis doing better "able to walk" 10/12 Reduced edema. 12/09 feet still have some swelling but "much better than previously! Still hurts to walk on them" 12/15 able to walk with min SOB and denies new edema 12/28 had cardio f/u and got a "thumbs up". better controlled bp's 01/14 "doing well" no CP and BP much improved-still on 40 mg of lasix a day. Respiratory: WNL Except Respiratory Comment: 06/28 Reports "I don't need it (oxygen)". Wears anywhere from 2-4 L when he does wear it. He states pox 86% on avg and instructed he should have it at 89 or more. Review se of low o2 could be SOB confusion. Is on adempas and the pharmacy has a person from [place] assess his bp prior to renewing or increasing dose. He notes prior bps were 140/80 but now 120/80 and was once 88/48 but no dizzyness. Instruct not to take with his magnesium. 07/06 Wears 2-4 L PRN, he tollerates longer periods without O2. Checks his O2 sats regularly, maintaining 89-91% on RA for extended periods. 07/14 sats 90% yest in clinic on 4 L; stress importance of wearing 28/12 and for helping PVD. denies sob, Enc cdb to prevent pneumonia 07/21 denies sob but act is still limited 08/09 uses O2 28/12. Had resp come and change out his tubing and mask and feels like he is breathing better. Still not able to do alot of activity but does walk around the apart some. 08/17 WEaring O2 most of time now as he was recently to ER with AMS without his O2. states "I learned my lesson the hard way". Denies SOB, cough 10/04 Wears O2 at all times. Enc to be aware of tubing 10/12 Denies SOB 11/23 Wearing 4L O2. 12/09 Cont to wear O2 4L and sometimes get SOB if I try to do much 12/15 walked with PT and states sats were 90% when he stopped to check. Denies s/s pneumonia but review with him and enc to report early. Had f/u with cardio and pulm with "A+" report. Next f/u in 6 mos 12/28 walks with O2 and not a walker, states he can't walk with both. no SOB on phone 01/14 Uses O2 28/12 states "doing OK" GI: Nutrition: WNL Except GI Comment: 06/28 reports never liked much salt. primary fresh fruit and vegies. He only restricted fluids when his legs were edematous. Enc him to limit to 2L due to CHF dx. Not a smoker, Cant remember last etoh drink. Only a cup of coffee rarely. Little fat in diet 07/06 reinforced 2L fluid restriction. 07/13 c/o chronic constipation, review colace, miralaxand fiber. "Need to drink" whentold to restrict to 2 L a day 07/21 cont. to recommend 2 L restriction 08/09 went over low salt diet and 2L fluid restriction. 08/17 no constip with iron, actually getting looseer and back to nromal 09/09 Reinforced fluid restriction. "I cut back on my fluids when my legs begin to swell." 12/28 "I'm a good drinker" Enc to limit to 2 L a day. he states his legs swell due to PVD not CHF. Explain weak heart can't pump the volume. Eats "like a bachelor" but not all bad 01/14 "Not much of an eater but eat small meals a day and doing good with that" Wt Gain/Loss: WNL Except Weight Comment: needs daily wt 07/06 He says his weights are doing "real good", but can't remember his last weight, that was a few days ago. I stressed the importance of daily weights. 07/14 reports up to 141 now . asked if it was water wt as lasix can only help with limited amount 08/09 does not weight daily but trys to wt ever other day and it has been staying the same but states if he starts to gain he will call Dr. 08/17 wt was 133 when he was sick but is trying to gain wt and is now 142; denies it is fluid wt as he has no edema or SOB 09/09 He has not weighed recently. I explained the importance of daily weights. 10/04 still does not Wt. Repeated the importance 12/09 Not weighing. Stressed how important it was to weigh. I asked to talk to the aide that stays with him and he said she wasn't there yet 12/15 states 4-5# under his nl wt. Enc to wt daily to recognize early edema 12/28 last wt #148. asked what he would do if he gained 3#; he stated he called ambulance last time but would try the MD first Constipation?: No : WNL Musculoskeletal, Exercise: WNL Except Musculoskeletal, Excercise Com: 06/28 with less pain states he can walk better/more. Enc to keep walking to improve circulation/pain 07/06 Increased foot pain, "feels like I am walking on gravel". Dr Yarbrough ordered a cream for this during his last visit, but he was unable to get it due to cost. 08/09 feet and legs remain very sensitive to touch or walking. Tries to walk around the apart some in order to get some exercise "my feet hurt like heck--no words to explain how they hurt"- 08/17 taking lyrica now too and able to walk with less pain. has PT from [facility] 09/09 He can only be on his feet for about ten minutes due to neuropathy pain. 10/04 states the pain is improved and he is walking more since the swelling in legs have gone down. 10/12 Reduced swelling and foot pain are allowing him to be more active, get out of the house. 11/23 Foot pain continues, limiting activity. 12/09 Foot pain continues but "I try to get around the best I cvn" 12/28 has PT 2 x a wk at home, reports increasing str and stamina but is slow Mobility/Falls: WNL Except Mobility Comment: 07/06 He can only walk short distances due to foot pain. 07/14 reports he lost his balance and fell at home. has stairs to climb and his legs buckle if he has to carry something. Knows exercises he can do in his chair to help maintain strength andmobility. enc to do them or return to PT. 08/17 trying to use a cane more 09/20 He had an "arthritis flare up"' and spent last week in bed. Currently at his baseline. 11/23 Using a cane in his home, has not done much since getting home yesterday. 12/15 states PT had him walk with cane and O2 and sats remained good Integumentary: WNL Except Integumentary Comment: 06/28 states "I cut the aspirin out 2-3 weeks ago...just experimenting" States he took it for years but quit because his legs beneath the knees bilat had pain, redness, drainage, edema and arms were black and blue. All symptons have been improving since quitting ASA. Asked if he thinks the duloxetine and hydroxyzine have helped and may be the reason his sx have improved. REcomended he ask Dr before quitting any med and that he ask him if he should resume since he has had stents in the past and that ASA was supposed to prevent platelets from clogging his stents. Has appt with Dr Reese for allergy testing 07/13 07/06 Left leg wound, [facility] is discharging him, and he dosn't know how this wound will get cared for. 07/14 saw ENT yesterday who is getting f/u on a biopsy, will return on 07/21 07/21 KOBI Reese told him he had 100's allergies and will start shots 1-2 x a week. states leg wound cont. to get better and no s/s infection 08/17 saw randy Gill, and started new lina that is helping a lot; his sores are healing now 12/28 states legs are healed 01/14 legs healed. Some swelling at times but put them up and watch for sking breakdown and increased swelling" Feeling of Well Being: WNL Except Feeling of Well Being Comment: 06/28 felt bad after going to [facility]. Lost his job. Now is a "shut in" but he can drive now. 07/06 "I can't walk or work, medical costs are going up, I guess I'll live until I run out of money." 07/14 reports cant afford $200 copay for newlyrica. States "tired of living like this" and "this isn't living". will trylyrica 07/21 pain is better and sounds more energetic 08/17 Cutting his hair today and this is his best day since Mar. Less pain and more mobility. states salvador made him get a life alert button and he is wearing it now 09/09 "All I do is sit and look out the window. I'm single, don't have any family, and don't really have any reason to want to go on." 09/20 He is less depressed than 09/09, but stated, "Nobody calls to check on me." 10/12 He is in a good mood, feeling good about being able to be more active. 11/23 He feels good to be home, but is weary of doing very much. 12/28 Home instead was $15oo a month but is cut back to just 8 Hr a wk; he is doing the rest. RENAE counseling today; enc to talk about future plans 01/14 still has PT come and visit a couple times of week. Has been talking to daughter about moving to [place] Socialization: WNL Except Socialization Comment: 07/06 Not getting out of his house. 10/12 He is getting out of the house. 11/23 Friends rthere to see him today. Pain/Management: WNL Except Pain/Management Comment: 06/28 improving in legs with duloxetine and stopping his ASA about the same time 07/06 Unable to walk more than about 50 ft due to pain in his feet. "I feel like I am walking on gravel." He was unable to fill a script for a cream to help with this. 07/14 has new rx for percocet bid. enc to keep legs elevated 07/21 pain better and able to walk more 08/17 better today with lyrica routinely 09/09 Neuropathy pain is worse, limiting mobility. 09/20 decreased neuropthy pain. 10/12 minimal pain. 11/23 Foot pain. 12/15 foot pain persistent. may go to pipe bending machine operator in [place] as recommended 12/28 toe pain unrelieved with daryn raymond, sees pipe bending machine operator 12/30 at [facility] Scheduled Follow-Up with [facility]: Yes (11/[address] Tirado [id number]/ [address] De Los Santos-Cardiac. Gl[facility]ier Supervisor and don't see either again for 6 mo. 'Just recently saw Dr Arana) Community Resources/HHC: 06/28 states Eliane from [facility] pharmacy visits him for adempas refill and to increasing dose .5mg each refill. 07/06 [facility] discharged him. 07/14 sees [facility] in 2 wk. His nurse to make f/u with cardio and pulm 08/17 states he has appt today 10/04 going to change DrsJulienne from [facility] to Dr. Arana has an appt w her this week 12/28 has f/u with Yasmeen 01/11, onc 01/13 01/[address] Tirado on 01/11 and she stated she was "happy with the improvements and how he was maintain and will FU in a couple ,months unles cond decreases" Questions for Future PCP Visit: 06/28 Has stopped ASA on his own. Should he resume? Duloxetine started about the same time and symptoms have improved, should it be continued? Is it safe to go without O2 prn thru the day? He reports lowered bp and edema with adempas use. Insomnia? 07/06 Need for anticoagulation? Neuropathy pain in his feet? 07/14 PT for weakness and fall? Ability to pay $200 copay for lyrica. Pt states he "needs to drink " but is on 2 L fluid restriction for CHF; please clarify with pt. f/u for statement that "I'm tired of living like this". Referral to [place] specialist in [place] for a laser treatment? 09/09 Poor neuropathy pain control. Depression? 10/12 Arthritis pain control. Following Discharge Instructio: Yes TCM Discharge Criteria Medication Knowledge: 06/28 review some meds with him and he knows names and doses 07/21 states hes taking b vit and that may be why legs are feeling better, also taking lyrica and percocet. keeps med list up to date with danny md visit 12/15 states has appt with Sasha tomorrow to review all meds he will bring with him. Her note said to see Dr Washington to verify and assist with polypharmacy 12/28 states Felix "cleaned out themedicine box". and he is glad he can't make a mistake. reports lyrica tapering but often substituted the name lasix instead. Disease Management/Concern/Wha: CHF Red/Yellow Flags: 08/09 went over the red and yellow flags of CHF Transitional Care Comment: 06/28 Refererd to [facility] due to frequency in ER. He reports feeling better since his return from [place]. Only wearing O2 prn days and at hs. "I just turn it on to 2,3,4, I don't know the difference, and breathe". REeports leg redness, edema and scales have diminished by stopping his ASA. Enc him to discuss this with MD before self medicating as his stent is at risk of clogging. Will need reminding to limit fluids, wt q day and CHF sx to monitor and report. Agree to f/u next week 07/06 He is less mobile, due to pain. Wears O2 PRN, sats 89-91 RA. He is not taking ASA, I explained the risks. I encouraged daily weights, 2L fluid restriction. He has an appt with Dr Yarbrough on Wednesday, I encouraged him to ask about the ASA, Medications for his peripheral neuropathies. 07/21 Enc him to communicate to MD's his addition of vitamins or change to other meds. Rash being addressed by MD and leg pain better. more active and feels better. will f/u in 2 weeks 08/03, Unable to contact 08/09 States he is doing'OK" has alot of trouble getting around. His ex- sets up his meds and "by mistake got an extra lasix in his pill box" enc him to look at his pills and make sure he is taking what he needs to at that time. Not able to get out of the house much as ex- is busy and she has been helping him out alot. "Not sure if this is much of a life." 3/13 feels like this is his best day in a long time. Pain is manageable now,skin ulcers are healing. he has had f/u with PCP, derm and sees pulm today. able to be more active and eat and wear shoes. states wound on his leg is almost healed. he is aware of his balance problem and is more careful with mobility andgoes slower . agree to f/u in 2 week 08/30 unable to contact. 09/02 Left message. 09/09 Neuropathy pain is worse, mild swelling to lower extremeties. The Drs at [facility] told him he has Multiple Myeloma, he has an appt with Dr Smith tomorrow. He may be depressed. 09/13 unable to contact 09/16 unable to contact 09/18 unable to contact. 09/20He could not get out of bed last week due to "an arthritis flare up," he had to reschedule his appt with Luis for 09/30. He is debating about making an appt with Dr Huston. 10/02 unable to contact-left message. 10/04 Has an appt to see Dr Arana this week. He states he is feeling better and mentally improved since he is able to walk and get out of the home. He is driving but has several friends and his daughter checking on him. Legs better if he keeps them elevated while resting. 10/12 He is in good spirits, due to increased mobility allowed by decreased pain. He is working on cleaning out his house, and hopes to sell it, to relocating to a lower elevation, warmer climate. This winter was very hard on him emotionally, and he needs a climate that is more condusive to activity, and easier breathing. 10/14 Meño was admitted to [facility]. 10/16 Transferred to [facility]. 11/04 Saw him on ECF this morning, he was very drowsy, and had a hard time staying awake. We discussed his plan to return home and his ECF goals to get him there. 11/23 He went home from ECF yesterday. On 4L O2, moving safely in his home with a cane. 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 I reviewed his discharge instructions, and medications. He has an Appt with Dr Tirado tomorrow. 11/29,, unable to contact. 12/03 Meño with PT/HH at this time but states he is improving "slow process" . Explanined to him that we have been trying to contact him since dc. states "I'm KAR[place] and sometimes don't hear the phone". Will try to contact again later. 12/07 unable to contact-left message 12/09 visited michelle Wilder today. He has been to Drs and has aides from [employer] around the clock. 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 "I changed PCP to Dr Arana and I realy like her." 12/15 Sounds happier on phone with progress in strength and mobility; looking forward to continued slow improvement 12/22 unable to contact 12/23 unable to contact. 12/27 He was needing to leave for an appt, the call was very brief. I will try again this afternoon. 12/28 Feeling he hasnt adjusted to skilled nursing; he worked everyday without a vacation for years and can't get in the swing of it. depressed at decreased mobility but admitted he is doing more just slowly. feels he has enough support and is getting f/u as ordered. 01/14 Trying to decide what he wants to do-"Don't feel like I have any ties here i [place] and I'm thinking of moving to [place] where my daughter is. She has found a place/home for me and I 'm going over to see it next week." "I have been driving and doing OK" enc him to be very careful. Copies to: ADY TIRADO MD, JOAN Jan 14, 2018 11:08
--- NOTE | 2018-01-31 13:08 | Transitional Care Management ---
Assessment Cardiac: WNL Except Cardiac Comment: 06/28 Reports hes managing CHF with lasix 2 tab in am and 1 in pm. Is taking his bp med bid. Ulices wrap legs or use comp socks as his legs were too tender but, keeps them elevated above his heart when in his recliner 07/06 No edema, lasix continues. He is not taking any asprin. 07/13 states legs "not swollen" but wt increasing. taking lasix bid, ulices wear comp socks, "skin sensitive to touch" too painful to place 07/21 denies edema, sob or wt gain 08/09 Denies CP. states LE bilaterily are still swollen, red and very sensitive to touch. Unable to weat HARDY hose. 08/17 Best day since my intermediate" No edema and able to wear socks and shoes. Taking lasix 40 bid 09/09 A little bit of edema in his feet/lower legs. 10/04 States legs-swelling and cellulitis doing better "able to walk" 10/12 Reduced edema. 12/09 feet still have some swelling but "much better than previously! Still hurts to walk on them" 12/15 able to walk with min SOB and denies new edema 12/28 had cardio f/u and got a "thumbs up". better controlled bp's 01/14 "doing well" no CP and BP much improved-still on 40 mg of lasix a day. Respiratory: WNL Except Respiratory Comment: 06/28 Reports "I don't need it (oxygen)". Wears anywhere from 2-4 L when he does wear it. He states pox 86% on avg and instructed he should have it at 89 or more. Review se of low o2 could be SOB confusion. Is on adempas and the pharmacy has a person from [facility] assess his bp prior to renewing or increasing dose. He notes prior bps were 140/80 but now 120/80 and was once 88/48 but no dizzyness. Instruct not to take with his magnesium. 07/06 Wears 2-4 L PRN, he tollerates longer periods without O2. Checks his O2 sats regularly, maintaining 89-91% on RA for extended periods. 07/14 sats 90% yest in clinic on 4 L; stress importance of wearing 28/12 and for helping PVD. denies sob, Enc cdb to prevent pneumonia 07/21 denies sob but act is still limited 08/09 uses O2 28/12. Had resp come and change out his tubing and mask and feels like he is breathing better. Still not able to do alot of activity but does walk around the apart some. 08/17 WEaring O2 most of time now as he was recently to ER with AMS without his O2. states "I learned my lesson the hard way". Denies SOB, cough 10/04 Wears O2 at all times. Enc to be aware of tubing 10/12 Denies SOB 11/23 Wearing 4L O2. 12/09 Cont to wear O2 4L and sometimes get SOB if I try to do much 12/15 walked with PT and states sats were 90% when he stopped to check. Denies s/s pneumonia but review with him and enc to report early. Had f/u with cardio and pulm with "A+" report. Next f/u in 6 mos 12/28 walks with O2 and not a walker, states he can't walk with both. no SOB on phone 01/14 Uses O2 28/12 states "doing OK" GI: Nutrition: WNL Except GI Comment: 06/28 reports never liked much salt. primary fresh fruit and vegies. He only restricted fluids when his legs were edematous. Enc him to limit to 2L due to CHF dx. Not a smoker, Cant remember last etoh drink. Only a cup of coffee rarely. Little fat in diet 07/06 reinforced 2L fluid restriction. 07/13 c/o chronic constipation, review colace, miralaxand fiber. "Need to drink" whentold to restrict to 2 L a day 07/21 cont. to recommend 2 L restriction 08/09 went over low salt diet and 2L fluid restriction. 08/17 no constip with iron, actually getting looseer and back to nromal 09/09 Reinforced fluid restriction. "I cut back on my fluids when my legs begin to swell." 12/28 "I'm a good drinker" Enc to limit to 2 L a day. he states his legs swell due to PVD not CHF. Explain weak heart can't pump the volume. Eats "like a bachelor" but not all bad 01/14 "Not much of an eater but eat small meals a day and doing good with that" Wt Gain/Loss: WNL Except Weight Comment: needs daily wt 07/06 He says his weights are doing "real good", but can't remember his last weight, that was a few days ago. I stressed the importance of daily weights. 07/14 reports up to 141 now . asked if it was water wt as lasix can only help with limited amount 08/09 does not weight daily but trys to wt ever other day and it has been staying the same but states if he starts to gain he will call Dr. 08/17 wt was 133 when he was sick but is trying to gain wt and is now 142; denies it is fluid wt as he has no edema or SOB 09/09 He has not weighed recently. I explained the importance of daily weights. 10/04 still does not Wt. Repeated the importance 12/09 Not weighing. Stressed how important it was to weigh. I asked to talk to the aide that stays with him and he said she wasn't there yet 12/15 states 4-5# under his nl wt. Enc to wt daily to recognize early edema 12/28 last wt #148. asked what he would do if he gained 3#; he stated he called ambulance last time but would try the MD first Constipation?: No : WNL Musculoskeletal, Exercise: WNL Except Musculoskeletal, Excercise Com: 06/28 with less pain states he can walk better/more. Enc to keep walking to improve circulation/pain 07/06 Increased foot pain, "feels like I am walking on gravel". Dr Yarbrough ordered a cream for this during his last visit, but he was unable to get it due to cost. 08/09 feet and legs remain very sensitive to touch or walking. Tries to walk around the apart some in order to get some exercise "my feet hurt like heck--no words to explain how they hurt"- 08/17 taking lyrica now too and able to walk with less pain. has PT from [facility] 09/09 He can only be on his feet for about ten minutes due to neuropathy pain. 10/04 states the pain is improved and he is walking more since the swelling in legs have gone down. 10/12 Reduced swelling and foot pain are allowing him to be more active, get out of the house. 11/23 Foot pain continues, limiting activity. 12/09 Foot pain continues but "I try to get around the best I cvn" 12/28 has PT 2 x a wk at home, reports increasing str and stamina but is slow Mobility/Falls: WNL Except Mobility Comment: 07/06 He can only walk short distances due to foot pain. 07/14 reports he lost his balance and fell at home. has stairs to climb and his legs buckle if he has to carry something. Knows exercises he can do in his chair to help maintain strength andmobility. enc to do them or return to PT. 08/17 trying to use a cane more 09/20 He had an "arthritis flare up"' and spent last week in bed. Currently at his baseline. 11/23 Using a cane in his home, has not done much since getting home yesterday. 12/15 states PT had him walk with cane and O2 and sats remained good Integumentary: WNL Except Integumentary Comment: 06/28 states "I cut the aspirin out 2-3 weeks ago...just experimenting" States he took it for years but quit because his legs beneath the knees bilat had pain, redness, drainage, edema and arms were black and blue. All symptons have been improving since quitting ASA. Asked if he thinks the duloxetine and hydroxyzine have helped and may be the reason his sx have improved. REcomended he ask Dr before quitting any med and that he ask him if he should resume since he has had stents in the past and that ASA was supposed to prevent platelets from clogging his stents. Has appt with Dr Reese for allergy testing 07/13 07/06 Left leg wound, [facility] is discharging him, and he dosn't know how this wound will get cared for. 07/14 saw ENT yesterday who is getting f/u on a biopsy, will return on 07/21 07/21 KOBI Reese told him he had 100's allergies and will start shots 1-2 x a week. states leg wound cont. to get better and no s/s infection 08/17 saw randy Gill, and started new lina that is helping a lot; his sores are healing now 12/28 states legs are healed 01/14 legs healed. Some swelling at times but put them up and watch for sking breakdown and increased swelling" Feeling of Well Being: WNL Except Feeling of Well Being Comment: 06/28 felt bad after going to [facility]. Lost his job. Now is a "shut in" but he can drive now. 07/06 "I can't walk or work, medical costs are going up, I guess I'll live until I run out of money." 07/14 reports cant afford $200 copay for newlyrica. States "tired of living like this" and "this isn't living". will trylyrica 07/21 pain is better and sounds more energetic 08/17 Cutting his hair today and this is his best day since Mar. Less pain and more mobility. states salvador made him get a life alert button and he is wearing it now 09/09 "All I do is sit and look out the window. I'm single, don't have any family, and don't really have any reason to want to go on." 09/20 He is less depressed than 09/09, but stated, "Nobody calls to check on me." 10/12 He is in a good mood, feeling good about being able to be more active. 11/23 He feels good to be home, but is weary of doing very much. 12/28 [facility] was $15oo a month but is cut back to just 8 Hr a wk; he is doing the rest. RENAE counseling today; enc to talk about future plans 01/14 still has PT come and visit a couple times of week. Has been talking to daughter about moving to [place] Socialization: WNL Except Socialization Comment: 07/06 Not getting out of his house. 10/12 He is getting out of the house. 11/23 Friends rthere to see him today. Pain/Management: WNL Except Pain/Management Comment: 06/28 improving in legs with duloxetine and stopping his ASA about the same time 07/06 Unable to walk more than about 50 ft due to pain in his feet. "I feel like I am walking on gravel." He was unable to fill a script for a cream to help with this. 07/14 has new rx for percocet bid. enc to keep legs elevated 07/21 pain better and able to walk more 08/17 better today with lyrica routinely 09/09 Neuropathy pain is worse, limiting mobility. 09/20 decreased neuropthy pain. 10/12 minimal pain. 11/23 Foot pain. 12/15 foot pain persistent. may go to real estate attorney in [place] as recommended 12/28 toe pain unrelieved with daryn raymond, sees real estate attorney 12/30 at [facility] Scheduled Follow-Up with [facility]: Yes (11/[address] Tirado [id number] Have been to see Dr De Los Santos-Cardiac. 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 'Just recently saw Dr Arana) Community Resources/HHC: 06/28 states Eliane from [facility] pharmacy visits him for adempas refill and to increasing dose .5mg each refill. 07/06 [facility] discharged him. 07/14 sees [facility] in 2 wk. His nurse to make f/u with cardio and pulm 08/17 states he has appt today 10/04 going to change DrsJulienne from [facility] to Dr. Arana has an appt w her this week 12/28 has f/u with Yasmeen 01/11, onc 01/13 01/[address] Tirado on 01/11 and she stated she was "happy with the improvements and how he was maintain and will FU in a couple ,months unles cond decreases" Questions for Future PCP Visit: 06/28 Has stopped ASA on his own. Should he resume? Duloxetine started about the same time and symptoms have improved, should it be continued? Is it safe to go without O2 prn thru the day? He reports lowered bp and edema with adempas use. Insomnia? 07/06 Need for anticoagulation? Neuropathy pain in his feet? 07/14 PT for weakness and fall? Ability to pay $200 copay for lyrica. Pt states he "needs to drink " but is on 2 L fluid restriction for CHF; please clarify with pt. f/u for statement that "I'm tired of living like this". Referral to [place] specialist in PVD for a laser treatment? 09/09 Poor neuropathy pain control. Depression? 10/12 Arthritis pain control. Following Discharge Instructio: Yes TCM Discharge Criteria Medication Knowledge: 06/28 review some meds with him and he knows names and doses 07/21 states hes taking b vit and that may be why legs are feeling better, also taking lyrica and percocet. keeps med list up to date with danny md visit 12/15 states has appt with Sasha tomorrow to review all meds he will bring with him. Her note said to see Dr Washington to verify and assist with polypharmacy 12/28 states Felix "cleaned out themedicine box". and he is glad he can't make a mistake. reports lyrica tapering but often substituted the name lasix instead. Disease Management/Concern/Wha: CHF Red/Yellow Flags: 08/09 went over the red and yellow flags of CHF Transitional Care Comment: 06/28 Refererd to [facility] due to frequency in ER. He reports feeling better since his return from [place]. Only wearing O2 prn days and at hs. "I just turn it on to 2,3,4, I don't know the difference, and breathe". REeports leg redness, edema and scales have diminished by stopping his ASA. Enc him to discuss this with MD before self medicating as his stent is at risk of clogging. Will need reminding to limit fluids, wt q day and CHF sx to monitor and report. Agree to f/u next week 07/06 He is less mobile, due to pain. Wears O2 PRN, sats 89-91 RA. He is not taking ASA, I explained the risks. I encouraged daily weights, 2L fluid restriction. He has an appt with Dr Yarbrough on Wednesday, I encouraged him to ask about the ASA, Medications for his peripheral neuropathies. 07/21 Enc him to communicate to MD's his addition of vitamins or change to other meds. Rash being addressed by MD and leg pain better. more active and feels better. will f/u in 2 weeks 08/03, Unable to contact 08/09 States he is doing'OK" has alot of trouble getting around. His ex- sets up his meds and "by mistake got an extra lasix in his pill box" enc him to look at his pills and make sure he is taking what he needs to at that time. Not able to get out of the house much as ex- is busy and she has been helping him out alot. "Not sure if this is much of a life." 08/17 feels like this is his best day in a long time. Pain is manageable now,skin ulcers are healing. he has had f/u with PCP, derm and sees pulm today. able to be more active and eat and wear shoes. states wound on his leg is almost healed. he is aware of his balance problem and is more careful with mobility andgoes slower . agree to f/u in 2 week 08/30 unable to contact. 09/02 Left message. 09/09 Neuropathy pain is worse, mild swelling to lower extremeties. The Drs at [place] told him he has Multiple Myeloma, he has an appt with Dr Smith tomorrow. He may be depressed. 09/13 unable to contact 09/16 unable to contact 09/18 unable to contact. 09/20He could not get out of bed last week due to "an arthritis flare up," he had to reschedule his appt with Luis for 09/30. He is debating about making an appt with Dr Huston. 10/02 unable to contact-left message. 10/04 Has an appt to see Dr Arana this week. He states he is feeling better and mentally improved since he is able to walk and get out of the home. He is driving but has several friends and his daughter checking on him. Legs better if he keeps them elevated while resting. 10/12 He is in good spirits, due to increased mobility allowed by decreased pain. He is working on cleaning out his house, and hopes to sell it, to relocating to a lower elevation, warmer climate. This winter was very hard on him emotionally, and he needs a climate that is more condusive to activity, and easier breathing. 10/14 Meño was admitted to [facility]. 10/16 Transferred to [facility] for further [facility] workup. 11/04 Saw him on ECF this morning, he was very drowsy, and had a hard time staying awake. We discussed his plan to return home and his ECF goals to get him there. 11/23 He went home from ECF yesterday. On 4L O2, moving safely in his home with a cane. 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 I reviewed his discharge instructions, and medications. He has an Appt with Dr Tirado tomorrow. 11/29,, unable to contact. 12/03 Meño with PT/HH at this time but states he is improving "slow process" . Explanined to him that we have been trying to contact him since dc. states "I'm [place] and sometimes don't hear the phone". Will try to contact again later. 12/07 unable to contact-left message 12/09 visited michelle Wilder today. He has been to Drs and has aides from [employer] around the clock. 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 "I changed PCP to Dr Arana and I realy like her." 12/15 Sounds happier on phone with progress in strength and mobility; looking forward to continued slow improvement 12/22 unable to contact 12/23 unable to contact. 12/27 He was needing to leave for an appt, the call was very brief. I will try again this afternoon. 12/28 Feeling he hasnt adjusted to intermediate; he worked everyday without a vacation for years and can't get in the swing of it. depressed at decreased mobility but admitted he is doing more just slowly. feels he has enough support and is getting f/u as ordered. 01/14 Trying to decide what he wants to do-"Don't feel like I have any ties here i [place] and I'm thinking of moving to [place] where my daughter is. She has found a place/home for me and I 'm going over to see it next week." "I have been driving and doing OK" enc him to be very careful. [id number] unable to contact-left message 01/31 unable to contact-left message. Dc'd from program. Copies to: ADY TIRADO MD ; [address] Jan 31, 2018 13:08
[2018-02-08] MEDS ORDERED: PANT40TA63 PO (17:05)
== END 2018-02-17 09:26 | disposition home or self-care (01) ==
LOC: TCM 08:14
PROVIDERS: ATTEND Nurse Practitioner
DX: Z02.9 Encounter for administrative examinations, unspecified (principal)

== ENCOUNTER → 2017-07-02 | Outpatient (CLI) | payer BC ==
[2017-04-06 09:09] VITALS: BMI 25.5
[~2017-07-02] MED LIST changes: +DOXE45CR5 TD; +DULO60CA56 PO; +PNEU0.5D3 IM; +RANI-324 PO; -RANI-366 PO; +SIMV-59 PO; -SIMV-63 PO; -WARF2TAB13 PO; +WARF2TAB81 PO
[2017-07-02 12:30] LABS: PLATELET COUNT, AUTOMATED 473 K/uL (150-450)
== END ==
LOC: LAB 11:36
PROVIDERS: ATTEND Internal Medicine
DX: L28.2 Other prurigo (principal)
CPT/HCPCS: 36415; 82040; 82247; 82306; 82310; 82374; 82435; 82565; 82947; 83880; 84075; 84132; 84155; 84295; 84443; 84450; 84460; 84520; 85025

== ENCOUNTER → 2017-07-27 | Outpatient (CLI) | payer BC ==
[2017-04-06 09:09] VITALS: BMI 25.5
[~2017-07-27] MED LIST changes: +PREG100C44 PO; +PREG50CA48 PO
[2017-07-27 12:25] LABS: PLATELET COUNT, AUTOMATED 506 K/uL (150-450)
== END ==
LOC: LAB 11:45
PROVIDERS: ATTEND Internal Medicine
DX: G62.9 Polyneuropathy, unspecified (principal); I50.22 Chronic systolic (congestive) heart failure; I83.009 Varicose veins of unspecified lower extremity with ulcer of unspecified site; I27.20 Pulmonary hypertension, unspecified; E03.9 Hypothyroidism, unspecified; D64.9 Anemia, unspecified
CPT/HCPCS: 36415; 82040; 82247; 82310; 82374; 82435; 82465; 82565; 82607; 82728; 82746; 82947; 83540; 83550; 83718; 83880; 84075; 84132; 84155; 84295; 84450; 84460; 84478; 84520; 85025

== ENCOUNTER 2017-08-07 18:23 | Emergency (ER) | payer BC ==
[2017-04-06 09:09] VITALS: Wt 63.5 kg
[~2017-08-07 18:23] MED LIST changes: -CLOB15OI16 TP; -HEPA40VI2 IM; -PREG150C33 PO; -TRIA15OI20 TP
--- NOTE | 2017-08-07 18:29 | ER Report ---
History and Physical Time Seen By : 18:29 HPI/ROS CHIEF COMPLAINT: Hypoxia, altered mental status HISTORY OF PRESENT ILLNESS: 76-year-old male brought in by EMS with altered mental status. Apparently, his oxygen was disconnected. He was found with a low pulse ox. He is normally on 2-4 L. Medical history significant for Atrial fibrillation on Eliqius, CHF, hyperlipidemia, hypertension, peripheral vascular disease, pulmonary embolism, sleep apnea, GERD, type II diabetes, hypothyroidism. On arrival patient confused, requiring 15 L by nonrebreather mask to keep saturations in the high 90s. [place] somewhat slurred. Patient has access to cardiac pain pills. He was just seen in his primary care office approximately 10 days ago. He denies fever, chills or productive cough. Patient denies chest pain. Patient denies head injury. REVIEW OF SYSTEMS: Respiratory: No cough, no dyspnea. Cardiovascular: No chest pain, no palpitations. Gastrointestinal: No vomiting, no abdominal pain. Musculoskeletal: No back pain. Allergies: Coded Allergies: trazodone (Verified Allergy, Intermediate, 06/06/17) Home Meds Active Scripts Pregabalin (LYRICA) 100 Mg Capsule, 100 MG PO BID, #60 CAPSULE 5 Refills Prov:ELIS YARBROUGH MD 07/27/17 Furosemide (LASIX) 40 Mg Tablet, 1 TAB PO BID, #90 TAB Prov:ELIS YARBROUGH MD 07/27/17 Carvedilol (CARVEDILOL) 6.25 Mg Tab, 0.5 TAB PO BID, #30 TAB 6 Refills Prov:ELIS YARBROUGH MD 07/27/17 Rosuvastatin Calcium (CRESTOR) 40 Mg Tablet, 40 MG PO QDAY, #90 TAB 1 Refill Prov:ELIS YARBROUGH MD 07/14/17 Finasteride (FINASTERIDE) 5 Mg Tablet, 5 MG PO QHS, #90 TAB 1 Refill Prov:ELIS YARBROUGH MD 07/14/17 Oxycodone Hcl/Acetaminophen (PERCOCET 5-325 MG TABLET) 1 Each Tablet, 1 EACH PO BID Y for pain, #30 TAB Prov:ELIS YARBROUGH MD 07/13/17 Hydroxyzine Hcl (HYDROXYZINE HCL) 25 Mg Tablet, 1 TAB PO QID Y for ITCHING, #60 TAB 1 Refill Prov:ELIS YARBROUGH MD 07/02/17 Duloxetine Hcl (CYMBALTA) 60 Mg Capsule.dr, 60 MG PO QDAY, #30 CAP 3 Refills Prov:ELIS YARBROUGH MD 07/02/17 Ferrous Sulfate (FERROUS SULFATE) 325 Mg Tablet, 325 MG PO DAILY, #30 TAB 5 Refills Prov:ELIS YARBROUGH MD 06/09/17 Levothyroxine Sodium (LEVOTHYROXINE SODIUM) 0.112 Mg Tab, 0.112 MG PO QAM, #90 TAB 3 Refills Prov:ELIS YARBROUGH MD 06/04/17 Apixaban (ELIQUIS) 5 Mg Tablet, 5 MG PO BID, #60 TAB 3 Refills Prov:ELIS YARBROUGH MD 03/08/17 Reported Medications Oxygen (OXYGEN) Inha, 4 L INH, L 08/07/17 Ranitidine Hcl (RANITIDINE HCL) 150 Mg Capsule, 150 MG PO BID, CAPSULE 07/02/17 Riociguat (Adempas) 1 Mg Tablet, 1.5 MG PO TID 03/23/17 Cholecalciferol (Vitamin D3) (D-2000) 2,000 Unit Capsule, 2000 UNIT PO QDAY, CAPSULE 03/23/17 Dextran 70/Hypromellose (ARTIFICIAL TEARS) 1 Each Droperette, 1 EACH OP QID 12/31/16 Oxygen (OXYGEN) Inha, 2.5 L INH, L 07/13/16 Past Medical/Surgical History History of Present Illness HPI 76-year-old male who came in today for the follow-up patient has chronic venous stasis ulcer in his left lower extremity which is almost healed however he continues to have the pain in both lower extremities he also has pain in the bottom of feet and lower leg for which he was recently placed on Cymbalta and then Lyrica was added Also mentioned that he has fallen 2-3 times in last 1 month he denies any dizziness or lightheadedness but feels off balance And also has been having chronic rash/itching both upper and lower extremity for which he is following up with Dr. Reese and will need to be on allergy injections Past medical history significant for depression and is currently on Cymbalta 60 mg daily he seems to be tolerating well Patient has recently been diagnosed with multiple myeloma. I'm wondering if his itching could be related to that? He has seen oncologist here and has an appointment to follow up in 3 months As has been diagnosed with pulmonary hypertension and has been recently started on Adempas he feels like he is breathing better Past medical history significant for recurrent venous comfortable embolism and is on Eliquis 5 mg twice a day Past medical history significant for peripheral vascular disease status post bilateral iliac stenting in 2014, and Past medical history significant for congestive heart failure with reduced ejection fraction of 45% he is currently on furosemide 40 mg 2 in the morning and 1 in the evening is on metolazone which was discontinued recently Past medical history significant for peptic ulcer disease he recently underwent EGD on 04/28/17 and was found to have gastric ulcers and was advised to increase the dose of pantoprazole to 40 mg twice a day Past Family Social History Reviewed Reviewed by: Dr. Elis Yarbrough Reviewed: Past Medical Hx, Surgical Hx Past Medical History Cardiovascular: Reports hx of: atrial fibrillation CHF edema hyperlipidemia (hyper chol.) hypertension (pul;. htn pressure 106) peripheral vascular dz other CV history (ashd/ sp 3 stents, peripheral artery disease (has seen Dr. De Los Santos) had stent placement in both legs in 2014, thrombophlebitis, varicose veins, a flutter one episode in hospital 07/2016, atherosclerosis of [place] arteries of the ext., coronary atherosclerosis ) Respiratory: Reports hx of: pulmonary embolism (and infarction) sleep apnea (obstructive) other respiratory history (granulomatous lung disease) Gastrointestinal: Reports hx of: GERD (chronic esophageal reflux and gastritis , ) Genitourinary: Reports hx of: benign prostatic hypertro (sp laser tx) Musculoskeletal: Reports hx of: other musculoskeletal hx (ankylosing spondylitis, cervical spondylosis) Endocrine: Reports hx of: diabetes type 2 hypothyroidism (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.) Hematology/oncology (M): Reports hx of: other hematologic history (monoclonal gammopathy) Reviewed Nurses Notes: Yes Old Medical Records Reviewed: Yes Hx Smoking: Yes Smoking Status: Former Smoker Exposure to Second Hand Smoke?: No Hx Substance Use Disorder: No Hx Alcohol Use: Yes (1-2 per week) Constitutional Vital Sign - Last 24 Hours 3/3/18 3/3/18 3/3/18 3/3/18 18:24 18:25 18:26 18:30 Temp 97.8 Pulse 53 Resp 16 B/P (MAP) 71/54 (60) 87/55 (66) 87/55 91/56 (68) Pulse Ox 98 O2 Delivery Non-Rebreather 08/07/17 08/07/17 08/07/17 08/07/17 18:38 18:44 18:44 18:51 Pulse 52 52 Resp 14 16 Pulse Ox 100 99 95 O2 Delivery Non-Rebreather Nasal Cannula O2 Flow Rate 15.0 4.0 08/07/17 08/07/17 08/07/17 08/07/17 18:51 18:53 19:00 19:05 Pulse 52 53 55 Resp 16 17 15 B/P (MAP) 110/61 (77) Pulse Ox 95 92 08/07/17 08/07/17 08/07/17 08/07/17 19:50 20:00 20:05 20:20 Pulse 58 64 57 Resp 14 25 14 B/P (MAP) 107/83 (91) Pulse Ox 89 91 89 08/07/17 08/07/17 08/07/17 08/07/17 20:30 20:35 20:50 21:00 Pulse 57 64 Resp 13 23 B/P (MAP) 103/62 (76) 116/71 (86) Pulse Ox 90 91 08/07/17 08/07/17 21:05 21:20 Pulse 62 62 Resp 17 21 Pulse Ox 89 90 Physical Exam Vital signs stable, afebrile, pulse ox normal, alert and oriented 3 General Appearance: The patient is alert, has no immediate need for airway protection and no current signs of toxicity. No acute distress HEENT: Pupils equal and round no injection. Oropharynx without redness or exudate, mucous members are moist Respiratory: Chest is non tender, lungs are clear to auscultation. Expiratory wheezing. Mom and no rails Cardiac: regular rate and rhythm Gastrointestinal: Abdomen is soft and non tender, no masses, bowel sounds normal. Musculoskeletal: Neck: Neck is supple and non tender. No JVD, no lymphadenopathy Extremities have full range of motion and are non tender. No edema, chronic stasis dermatitis changes bilaterally secondary to peripheral vascular disease Skin: No rashes or lesions. DIFFERENTIAL DIAGNOSIS: After history and physical exam differential diagnosis was considered for altered mental status including but not limited to hypoglycemia, hypoxemia, infectious process, electrolyte abnormality, head injury and intoxicants. Medical Decision Making Data Points Result Diagram: 08/07/17 1840 08/07/17 0000 Laboratory Hematology Test 08/07/17 00:00 08/07/17 18:40 08/07/17 21:31 Sodium Level 138 mmol/L (137-145) Potassium Level 5.2 mmol/L (3.5-5.0) Chloride Level 100 mmol/L (98-107) Carbon Dioxide Level 24 mmol/L (22-30) Blood Urea Nitrogen 34 mg/dl (9-21) Creatinine 1.50 mg/dl (0.66-1.25) Glomerular Filtration Rate Calc 45.4 Random Glucose 101 mg/dl (75-110) Lactate 1.4 mmol/L (0.7-2.1) Calcium Level 9.0 mg/dl (8.4-10.2) Total Bilirubin 0.4 mg/dl (0.2-1.3) Aspartate Amino Transf (AST/SGOT) 25 U/L (0-35) Alanine Aminotransferase (ALT/SGPT) 39 U/L (0-56) Alkaline Phosphatase 146 U/L (0-126) Troponin I 0.016 ng/ml Total Protein 6.4 gm/dl (6.3-8.2) Albumin 3.0 g/dl (3.5-5.0) Serum Alcohol < 10 mg/dl Red Blood Count 4.38 M/uL (4.00-5.60) Mean Corpuscular Volume 82.0 fL (80.0-96.0) Mean Corpuscular Hemoglobin 26.2 pg (26.0-33.0) Mean Corpuscular Hemoglobin Concent 32.0 g/dL (32.0-36.0) Red Cell Distribution Width 23.8 % (11.5-14.5) Mean Platelet Volume 7.6 fL (7.2-11.1) Neutrophils (%) (Auto) 46.4 % (39.4-72.5) Lymphocytes (%) (Auto) 22.6 % (17.6-49.6) Monocytes (%) (Auto) 13.7 % (4.1-12.4) Eosinophils (%) (Auto) 16.6 % (0.4-6.7) Basophils (%) (Auto) 0.7 % (0.3-1.4) Nucleated RBC Relative Count (auto) 0.2 /100WBC Neutrophils # (Auto) 3.2 K/uL (2.0-7.4) Lymphocytes # (Auto) 1.6 K/uL (1.3-3.6) Monocytes # (Auto) 0.9 K/uL (0.3-1.0) Eosinophils # (Auto) 1.1 K/uL (0.0-0.5) Basophils # (Auto) 0.0 K/uL (0.0-0.1) Nucleated RBC Absolute Count (auto) 0.02 K/uL Peripheral Blood Smear Yes Y/N B-Type Natriuretic Peptide 813 pg/ml (0-100) Urine Color Yellow Urine Clarity Clear Urine pH 5.0 pH (4.8-9.5) Urine Specific [place] 1.010 Urine Protein Negative mg/dL (NEGATIVE) Urine Glucose (UA) Negative mg/dL (NEGATIVE) Urine Ketones Negative mg/dL (NEGATIVE) Urine Blood Negative (NEGATIVE) Urine Nitrite Negative (NEGATIVE) Urine Bilirubin Negative (NEGATIVE) Urine Urobilinogen Negative mg/dL (0.2-1.9) Urine Leukocyte Esterase Negative (NEGATIVE) Urine RBC 1 /HPF (0-2/HPF) Urine WBC 1 /HPF (0-5/HPF) Urine Squamous Epithelial Cells Few /LPF (</=FEW) Urine Bacteria Negative /HPF (NONE-FEW) Urine Hyaline Casts Many /LPF (NONE-FEW) Urine Mucus None /HPF (NONE-FEW) Urine Opiates Screen Negative Urine Barbiturates Screen Negative Ur Tricyclic Antidepressants Screen Negative Urine Phencyclidine Screen Negative Urine Amphetamines Screen Negative Urine Benzodiazepines Screen Negative Urine Cocaine Screen Negative Urine Cannabinoids Screen Positive Chemistry Test 08/07/17 00:00 08/07/17 18:40 08/07/17 21:31 Glomerular Filtration Rate Calc 45.4 Lactate 1.4 mmol/L (0.7-2.1) Calcium Level 9.0 mg/dl (8.4-10.2) Total Bilirubin 0.4 mg/dl (0.2-1.3) Aspartate Amino Transf (AST/SGOT) 25 U/L (0-35) Alanine Aminotransferase (ALT/SGPT) 39 U/L (0-56) Alkaline Phosphatase 146 U/L (0-126) Troponin I 0.016 ng/ml Total Protein 6.4 gm/dl (6.3-8.2) Albumin 3.0 g/dl (3.5-5.0) Serum Alcohol < 10 mg/dl White Blood Count 6.9 k/uL (4.5-11.0) Red Blood Count 4.38 M/uL (4.00-5.60) Hemoglobin 11.5 g/dL (14.0-18.0) Hematocrit 35.9 % (42.0-52.0) Mean Corpuscular Volume 82.0 fL (80.0-96.0) Mean Corpuscular Hemoglobin 26.2 pg (26.0-33.0) Mean Corpuscular Hemoglobin Concent 32.0 g/dL (32.0-36.0) Red Cell Distribution Width 23.8 % (11.5-14.5) Platelet Count 410 K/uL (150-450) Mean Platelet Volume 7.6 fL (7.2-11.1) Neutrophils (%) (Auto) 46.4 % (39.4-72.5) Lymphocytes (%) (Auto) 22.6 % (17.6-49.6) Monocytes (%) (Auto) 13.7 % (4.1-12.4) Eosinophils (%) (Auto) 16.6 % (0.4-6.7) Basophils (%) (Auto) 0.7 % (0.3-1.4) Nucleated RBC Relative Count (auto) 0.2 /100WBC Neutrophils # (Auto) 3.2 K/uL (2.0-7.4) Lymphocytes # (Auto) 1.6 K/uL (1.3-3.6) Monocytes # (Auto) 0.9 K/uL (0.3-1.0) Eosinophils # (Auto) 1.1 K/uL (0.0-0.5) Basophils # (Auto) 0.0 K/uL (0.0-0.1) Nucleated RBC Absolute Count (auto) 0.02 K/uL Peripheral Blood Smear Yes Y/N B-Type Natriuretic Peptide 813 pg/ml (0-100) Urine Color Yellow Urine Clarity Clear Urine pH 5.0 pH (4.8-9.5) Urine Specific [place] 1.010 Urine Protein Negative mg/dL (NEGATIVE) Urine Glucose (UA) Negative mg/dL (NEGATIVE) Urine Ketones Negative mg/dL (NEGATIVE) Urine Blood Negative (NEGATIVE) Urine Nitrite Negative (NEGATIVE) Urine Bilirubin Negative (NEGATIVE) Urine Urobilinogen Negative mg/dL (0.2-1.9) Urine Leukocyte Esterase Negative (NEGATIVE) Urine RBC 1 /HPF (0-2/HPF) Urine WBC 1 /HPF (0-5/HPF) Urine Squamous Epithelial Cells Few /LPF (</=FEW) Urine Bacteria Negative /HPF (NONE-FEW) Urine Hyaline Casts Many /LPF (NONE-FEW) Urine Mucus None /HPF (NONE-FEW) Urine Opiates Screen Negative Urine Barbiturates Screen Negative Ur Tricyclic Antidepressants Screen Negative Urine Phencyclidine Screen Negative Urine Amphetamines Screen Negative Urine Benzodiazepines Screen Negative Urine Cocaine Screen Negative Urine Cannabinoids Screen Positive Toxicology Test 08/07/17 00:00 08/07/17 21:31 Serum Alcohol < 10 mg/dl Urine Opiates Screen Negative Urine Barbiturates Screen Negative Ur Tricyclic Antidepressants Screen Negative Urine Phencyclidine Screen Negative Urine Amphetamines Screen Negative Urine Benzodiazepines Screen Negative Urine Cocaine Screen Negative Urine Cannabinoids Screen Positive Urinalysis Test 08/07/17 21:31 Urine Color Yellow Urine Clarity Clear Urine pH 5.0 pH (4.8-9.5) Urine Specific [place] 1.010 Urine Protein Negative mg/dL (NEGATIVE) Urine Glucose (UA) Negative mg/dL (NEGATIVE) Urine Ketones Negative mg/dL (NEGATIVE) Urine Blood Negative (NEGATIVE) Urine Nitrite Negative (NEGATIVE) Urine Bilirubin Negative (NEGATIVE) Urine Urobilinogen Negative mg/dL (0.2-1.9) Urine Leukocyte Esterase Negative (NEGATIVE) Urine RBC 1 /HPF (0-2/HPF) Urine WBC 1 /HPF (0-5/HPF) Urine Squamous Epithelial Cells Few /LPF (</=FEW) Urine Bacteria Negative /HPF (NONE-FEW) Urine Hyaline Casts Many /LPF (NONE-FEW) Urine Mucus None /HPF (NONE-FEW) EKG/Imaging EKG Interpretation 12 lead EK Rhythm: Sinus bradycardia with first-degree AV block, premature [place] ventricular complexes noted V[place]: normal QRS: Right bundle branch block pattern ST segments: normal, comparison to previous EKG 05/26/17, no significant morphologic change, rate is significantly slower Imaging X-ray: Single view portable chest x-ray was obtained. I viewed the images myself on the PACS system. My interpretation of the images is: No infiltrate, no effusion, cardiomegaly, comparison to previous chest x-ray 05/26/17, no significant change. The radiologist interpretation had no clinically significant variation from this interpretation. Results: CT scan of the head without contrast was obtained. The results of the study are HEAD CT: Indication: Altered mental status. Technique: Contiguous axial sections were obtained from the base to the vertex without contrast enhancement. One of the following dose optimization techniques was utilized in the performance of this exam: Automated exposure control; adjustment of the mA and/ or kV according to the patient's size; or use of an iterative reconstruction technique. Specific details can be referenced in the facility's radiology CT exam operational policy. Comparison: None. Findings: There is no evidence of intra-axial or extra-axial hemorrhage. There is diffuse hypoattenuation in the periventricular white matter, most likely related to chronic microvascular disease. No focal areas of decreased or increased attenuation are identified. There is no evidence of mass, edema, or shift of the midline structures. The size, shape, and configuration of the ventricular system are normal. The skeletal structures are intact and unremarkable. The visualized paranasal sinuses and mastoid air cells are clear. Impression: No acute findings. The study was read by the radiologist. I viewed the images myself on the PACS system. ED Course/Re-evaluation Clinical Indication for ER IV: IV Access ED Course Patient was minute to an examination room. H&P was done. The differential diagnoses was considered. Patient was briefly altered mental status with hypoxemia since he was off his oxygen. On arrival. He said his normal state of health. Extensive diagnostic evaluation is undertaken with no specific abnormal findings. He has chronic findings are unchanged. His chest x-ray is negative. A CT scan of the head shows no acute pathology. His tox screen is positive for cannabis. Patient ambulated at the bedside with a cyst. He normally gets around with a walker. I see no indication for admission at this time. I advised patient and his daughter to follow-up with her primary care physician this week. Decision to Disposition Date: Aug 07, 2017 Decision to Disposition Time: 21:00 Depart Departure Latest Vital Signs Vital Signs Date Time Temp Pulse Resp B/P (MAP) Pulse Ox O2 Delivery O2 Flow Rate FiO2 08/07/17 21:20 62 21 90 08/07/17 21:00 116/71 (86) 08/07/17 18:51 Nasal Cannula 4.0 08/07/17 18:26 97.8 Impression: Primary Impression: Altered mental status Additional Impressions: Hypoxia Leg weakness, bilateral Condition: Improved Disposition: HOME OR SELF-CARE Referrals: ELIS YARBROUGH MD (PCP) Patient Instructions: COPD (Chronic Obstructive Pulmonary Disease) (ED), Heart Failure (ED), Hypoxia (ED) Additional Instructions: Follow-up up with your primary care within 5 days Problem Qualifiers Primary Impression: Altered mental status Altered mental status type: unspecified Qualified Codes: R41.82 - Altered mental status, unspecified EVELINE MONTGOMERY DO Aug 07, 2017 18:29
[2017-08-07] MEDS ORDERED: ALBUTEROL/IPRATROPIUM 3 ML NEB NEB ONE (18:35)
--- NOTE | 2017-08-07 18:54 | EKG ---
FACILITY: [facility] PATIENT NAME: BEKAH DAVIS : [id number] MR: [id number] V: [id number] EXAM DATE: ORDERING PHYSICIAN: EVELINE MONTGOMERY TECHNOLOGIST: LADAN Test Reason : HYPOTENSIVE Blood Pressure : / mmHG Vent. Rate : 053 BPM Atrial Rate : 053 BPM P-R Int : 440 ms QRS Dur : 136 ms QT Int : 576 ms P-R-T Axes : 039 109 -72 degrees QTc Int : 540 ms Sinus bradycardia with 1st degree AV block with premature supraventricular complexes Right bundle branch block T wave abnormality, consider inferolateral ischemia Abnormal ECG No previous ECGs available Confirmed by SIERRA TREVIZO ([id number]) on 08/07/2017 7:59:59 PM Referred By: FELIPE Confirmed By:SIERRA TREVIZO
[2017-08-07] MEDS ORDERED: OXYGENHOME INH (19:00)
[2017-08-07 19:28] LABS: PLATELET COUNT, AUTOMATED 410 K/uL (150-450)
--- NOTE | 2017-08-07 20:41 | RADIOLOGY IMAGING REPORT ---
FACILITY: [facility] [place] PATIENT NAME: Meño Arechiga : 1940 MR: [id number] V: [id number] EXAM DATE: ORDERING PHYSICIAN: EVELINE MONTGOMERY TECHNOLOGIST: Location: [facility] Patient: Meño Arechiga : 1940 Visit/Account:[id number] Date of Sevice: 08/07/2017 PORTABLE CHEST: Indication: Hypoxia and altered mental status. Technique: A single frontal film was obtained. Comparison: 05/26/2017 Skeletal and soft tissue structures: Intact and unremarkable. Heart and mediastinum: Stable, allowing for technical differences. Lung michael: Well-expanded. No focal or diffuse opacities are identified. There is no vascular conges tion. Pleural spaces: Unremarkable. Impression: No acute process or significant change. Report Dictated By: Trip Plaza MD at 08/07/2017 8:35 PM Report E-Signed By: Trip Plaza MD at 08/07/2017 8:37 PM WSN:[id number]
--- NOTE | 2017-08-07 20:54 | RADIOLOGY IMAGING REPORT ---
FACILITY: [facility] [place] PATIENT NAME: Meño Arechiga : 1940 MR: [id number] V: [id number] EXAM DATE: ORDERING PHYSICIAN: EVELINE MONTGOMERY TECHNOLOGIST: [place] [facility] [place] Me[place] Arechiga : 1940 Visit/Account:[id number] Date of Sevice: 08/07/[address]: Indication: Altered mental status. Technique: Contiguous axial sections were obtained from the base to the vertex without contrast enhan cement. One of the following dose optimization techniques was utilized in the performance of this exam: Autom ated exposure control; adjustment of the mA and/or kV according to the patient's size; or use of an i terative reconstruction technique. Specific details can be referenced in the facility's radiology CT exam operational policy. Comparison: None. Findings: There is no evidence of intra-axial or extra-axial hemorrhage. There is diffuse hypoattenua tion in the periventricular white matter, most likely related to chronic microvascular disease. No fo tahmina areas of decreased or increased attenuation are identified. There is no evidence of mass, edema, or shift of the midline structures. The size, shape, and configuration of the ventricular system are normal. The skeletal structures are intact and unremarkable. The visualized paranasal sinuses and mas toid air cells are clear. Impression: No acute findings. Report Dictated By: Trip Plaza MD at 08/07/2017 8:45 PM Report E-Signed By: Trip Plaza MD at 08/07/2017 8:49 PM WSN:[id number]
[2017-08-07 21:00] VITALS: BP 116/71
== END 2017-08-07 22:06 | disposition home or self-care (01) ==
LOC: ER 18:31
DX: R41.82 Altered mental status, unspecified (principal); R09.02 Hypoxemia; R53.1 Weakness; R00.1 Bradycardia, unspecified; I44.0 Atrioventricular block, first degree; I45.10 Unspecified right bundle-branch block; I50.9 Heart failure, unspecified
CPT/HCPCS: 36415; 70450; 71045; 80305; 80320; 81001; 83605; 83880; 84484; 85025; 87040; 93005; 94640; 99284; J7620; 82040; 82247; 82310; 82374; 82435; 82565; 82947; 84075; 84132; 84155; 84295; 84450; 84460; 84520

== ENCOUNTER → 2017-08-07 | Outpatient (CLI) | payer BC ==
[2017-04-06 09:09] VITALS: BMI 25.5
[~2017-08-07] MED LIST changes: +CLOB15OI16 TP; +HEPA40VI2 IM; +PREG150C33 PO; +TRIA15OI20 TP
== END ==
LOC: AMB 17:56
PROVIDERS: ATTEND Nurse Practitioner
DX: R53.1 Weakness (principal); R09.02 Hypoxemia; I95.9 Hypotension, unspecified
CPT/HCPCS: A0425; A0427

== ENCOUNTER → 2017-08-13 | Outpatient (CLI) | payer BC ==
[2017-04-06 09:09] VITALS: BMI 25.5
[~2017-08-13] MED LIST changes: +CLOB15OI16 TP; +PREG150C33 PO; +TRIA15OI20 TP
== END ==
LOC: LAB 11:46
PROVIDERS: ATTEND Internal Medicine
DX: R41.82 Altered mental status, unspecified (principal); D64.9 Anemia, unspecified; G62.9 Polyneuropathy, unspecified; I50.9 Heart failure, unspecified; I27.20 Pulmonary hypertension, unspecified
CPT/HCPCS: 36415; 82040; 82247; 82310; 82374; 82435; 82565; 82947; 83880; 84075; 84132; 84155; 84295; 84450; 84460; 84520

== ENCOUNTER 2017-10-08 13:30 | Outpatient (RCR) | payer BC ==
[2017-04-06 09:09] VITALS: Wt 67.9 kg
[2017-09-30 11:32] VITALS: BP 110/64
--- NOTE | 2017-09-30 15:39 | RADIOLOGY IMAGING REPORT ---
FACILITY: [facility] PATIENT NAME: Meño Arechiga : 1940 MR: [id number] V: [id number] EXAM DATE: ORDERING PHYSICIAN: DARON NAYAK TECHNOLOGIST: Location: [facility] Patient: Meño Arechiga : 1940 Visit/Account:[id number] Date of Sevice: 09/30/2017 BONE SURVEY COMPLETE HISTORY: Monoclonal gammopathy Additional history: None COMPARISON: None. FINDINGS: 15 views included in this study including AP lateral views of the spinal axis, AP lateral views of th e proximal arms and legs, lateral view of the skull and AP view of the pelvis There are no focal lytic or blastic bone lesions identified on this examination. In the cervical spi ne there is 5 mm anterolisthesis C4 over C5 with moderate disc space narrowing C3-4 and C4-5 and adva nced disc space narrowing C5-6 and C6-7 consistent with disc disease. In the lumbar spine there is m oderate disc space narrowing L5-S1. Possible partial SI joint ankylosis. This could best be evaluat ed with oblique views. Cardiac silhouette is mildly enlarged without evidence of failure. This julieta ent is a vasculopath with extensive calcific plaque to the iliac and femoral arteries and bilateral c ommon iliac stents in place. IMPRESSION: No focal bone lesions identified. Advanced degenerative changes to the cervical spine as discussed above and at least mild disc disease L5-S1. Vasculopathy and cardiomegaly. Report Dictated By: Dallas Vora MD at 09/30/2017 3:24 PM Report E-Signed By: Dallas Vora MD at 09/30/2017 3:36 PM WSN:[email or web address]
--- NOTE | 2017-09-30 20:02 | ONCOLOGY FOLLOW UP NOTE ---
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 CHIEF COMPLAINT Patient is here today for followup of his multiple myeloma. ONCOLOGY HISTORY Patient is a 76-year-old male who came to the [facility] for evaluation of multiple concerns including severe pulmonary hypertension, recurrent venous thromboembolism, coronary artery disease, systolic heart failure with left ventricular ejection fraction of 45%, COPD, peripheral arterial disease, chronic lower extremity edema, nonhealing lower extremity ulcer and generalized pruritus. During his evaluation and admission there, he had nausea and vomiting and the patient was admitted for evolving sepsis and possible lower extremity cellulitis. His baseline creatinine is 1.4, and during hospitalization his creatinine peaked at 3.1 on May 04, 2017, which has improved after that. It was thought that his acute kidney injury was due to both hypotension and hemoglobin drop. 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 He was eventually diagnosed with multiple myeloma with 10% to 20% lambda light chain restricted plasma cells. Immunofixation showed IgD lambda and serum free light chain noted at kappa of 6.25 and lambda of 88.1, and a ratio of 0.0709. CT skeletal survey was negative for lytic or sclerotic bone lesions. He has had lower extremity edema for several years with erythematous induration. This has become pruritic. Patient does have known peripheral vascular disease. The question at that time when he was in [facility] was if the deterioration of his kidney function is because of his progressive kidney disease versus multiple myeloma and it was thought that this was not due to his myeloma, which is thought to be smoldering myeloma as per patient, so no indication for treatment was suggested at that time. HISTORY OF PRESENT ILLNESS Patient is here today for followup of his multiple myeloma. He has pain in the hands, wrists, feet, ankles and shoulders. He is weak, tired and fatigued from his medication. PAST MEDICAL HISTORY 1. Chronic venous insufficiency with edema. 2. Congestive heart failure. 3. Coronary artery disease status post stent in 2007. 4. Peripheral vascular disease status post PTCA, November 2014, November 2015, January 2016, January 2017. 5. Pulmonary hypertension diagnosed in July 2015. 6. Right heart catheterization in December 2016 showed pressure 90/35 with a mean of 52. 7. History of recurrent lower extremity DVT, pulmonary embolism once, on lifelong anticoagulation. 8. Possible COPD, on home oxygen at night. 9. Granulomatous lung disease. 10. Paroxysmal atrial fibrillation. 11. Chronic anxiety. 12. HLA-B27 positive diagnosed with ankylosing spondylitis at [facility] in late , currently quiet. 13. GERD. 14. Indeterminate skin rash. 15. Possible peripheral neuropathy. 16. Hypothyroidism. 17. Early cataract. 18. Multiple myeloma ISS stage II. 19. Proteinuria with normal creatinine 2.2 g/24 hours December 2016. 20. Impaired fasting glucose. A1c 6.3 in 2017. 21. Hyperlipidemia. 22. Hypertension. PAST SURGICAL HISTORY 1. Back surgery with laminectomy in . 2. Tonsillectomy. 3. Appendectomy. 4. Cholecystectomy. 5. Splenectomy following a high school sports injury. SOCIAL HISTORY Patient lives in [place], [place]. He is and has two children. 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 He smoked approximately a quarter to half a pack per day for 25-30 years and quit in 1989. He drank a fair amount of alcohol in the past, but now less than weekly. Denies drug use. FAMILY HISTORY Mother had lung cancer and she was a smoker. There is positive family history of polycystic disease. CURRENT MEDICATIONS 1. Metolazone 2.5 mg daily every other day. 2. Lasix 40 mg daily. 3. Tramadol 50 mg q.6 hourly p.r.n. for pain. 4. MiraLax 17 g daily. 5. Alprazolam 0.5 mg three times daily as needed for anxiety. 6. Carvedilol 12.5 mg tablet one-half tablet twice daily. 7. Gabapentin 300 mg three times daily. 8. Magnesium oxide 400 mg daily. 9. Adempas 1 mg tablet. 10. Vitamin D 2000 units daily. 11. Eliquis 5 mg twice daily. 12. Artificial Tears four times daily. 13. Levothyroxine 112 mcg daily. 14. Finasteride 5 mg at bedtime. 15. Aspirin 81 mg daily. 16. Oxygen by inhalation. ALLERGIES TRAZODONE which caused itching. REVIEW OF SYSTEMS CONSTITUTIONAL: No appetite or weight change. No fever, chills or sweating. No recent infection. HEENT: Ears: No tinnitus or hearing problem. Nose: Patient has nasal discharge. Throat: No sore throat or mouth ulcers. Eyes: No diplopia or visual changes. RESPIRATORY: Patient has occasional wheezing from asthma. CARDIOVASCULAR: No chest pain, orthopnea, or paroxysmal nocturnal dyspnea (PND) . No edema. No palpitations. GASTROINTESTINAL: No nausea or vomiting. The patient has constipation. No change in bowel movements. No heartburn or swallowing difficulties. No abdominal pain. No jaundice. No hematemesis, melena or rectal bleeding. GENITOURINARY: No hematuria or dysuria. MUSCULOSKELETAL: Patient has pain in the joints, mainly in the hands, wrists, feet, ankles and shoulders. NEUROLOGICAL: Patient has occasional headache. HEMATOLOGIC/LYMPHATIC: He bruises easily, but he is using Eliquis. He is weak , tired and fatigued. No enlarged lymph nodes. SKIN: He has itching. PSYCHIATRIC: No anxiety or depression. PHYSICAL EXAMINATION GENERAL: Looks stable. Well-developed, well-nourished, and in no acute distress. VITAL SIGNS: Blood pressure 110/64, pulse 77 per minute, respirations 16 per minute, temperature 97.1, pulse oximetry 90% on 3L oxygen. HEENT: Head: Atraumatic. No sinus tenderness to palpation. Eyes: No icterus or conjunctivitis. Mouth and throat: No oral thrush or mucositis. NECK: Supple. No cervical or supraclavicular lymphadenopathy. LUNGS: Clear to auscultation and percussion bilaterally. HEART: Regular rate and rhythm. No gallops, murmurs, clicks or rubs. ABDOMEN: Soft and lax. No tenderness. No hepatosplenomegaly. No masses. EXTREMITIES: There is bilateral leg edema with evidence of chronic venous insufficiency in his legs. LYMPHATICS: No peripheral lymphadenopathy. NEUROLOGICAL: Conscious, alert and oriented times three. No focal motor or sensory deficits. PSYCHIATRIC: Mood and affect appear normal. SKIN: No skin rash, bruise or purpuric eruption. DIAGNOSTIC DATA CBC showed white count 14.4, hemoglobin 11, hematocrit 35.2, platelets 380,000. Chem panel is normal, except blood sugar 108, BUN 37, creatinine 1.28, alkaline phosphatase 119. Gamma GT 79. Serum iron 17. Beta-2 microglobulin is 4. Serum protein electrophoresis showed IgA monoclonal protein with lambda light chain specificity with M-spike 0.1 g/dL. IgA level is high at 525. Free light chain assay for kappa was high at 73.3, and for lambda was 768.5. The lambda free light chain increased from 88 to 768.5. ASSESSMENT Smoldering multiple myeloma with IgD lambda. CT skeletal survey came back negative for lytic or sclerotic bone lesions. Patient has been evaluated at [facility] and he was diagnosed with smoldering multiple myeloma with recommendation of only followup. His lambda free light chain increased from 88 to 768.5. I am planning to repeat the skeletal bone survey. I will do 24-hour urine for free light chain assay and immunoelectrophoresis, and I will also check the serum protein immunoelectrophoresis for IgD. I will see the patient in a week to decide if he will need treatment now or not. I explained that to the patient and he is agreeable with the plan of management. PLAN 1. Serum protein immunoelectrophoresis for IgD. 2. Twenty-four hour urine for free light chain assay and immunoelectrophoresis. 3. Skeletal bone survey. 4. Patient to return after the above for further evaluation and management. 5. Patient is to contact us for any new concerns or complaints. CHARD
[~2017-10-08 13:30] MED LIST changes: +HEPA40VI2 IM; +PNEI IJ; -RANI-324 PO; +RANI-366 PO; -SIMV-59 PO; +SIMV-63 PO; +WARF2TAB13 PO; -WARF2TAB81 PO
[2017-10-08 13:37] VITALS: BP 107/64
--- NOTE | 2017-10-08 16:10 | ONCOLOGY FOLLOW UP NOTE ---
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 CHIEF COMPLAINT Patient is here today for followup of his smoldering multiple myeloma. ONCOLOGY HISTORY Patient is a 76-year-old male who came to the [facility] for evaluation of multiple concerns including severe pulmonary hypertension, recurrent venous thromboembolism, coronary artery disease, systolic heart failure with left ventricular ejection fraction of 45%, COPD, peripheral arterial disease, chronic lower extremity edema, nonhealing lower extremity ulcer and generalized pruritus. During his evaluation and admission there, he had nausea and vomiting and the patient was admitted for evolving sepsis and possible lower extremity cellulitis. His baseline creatinine is 1.4, and during hospitalization his creatinine peaked at 3.1 on May 04, 2017, which has improved after that. It was thought that his acute kidney injury was due to both hypotension and hemoglobin drop. 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 He was eventually diagnosed with multiple myeloma with 10% to 20% lambda light chain restricted plasma cells. Immunofixation showed IgD lambda and serum free light chain noted at kappa of 6.25 and lambda of 88.1, and a ratio of 0.0709. CT skeletal survey was negative for lytic or sclerotic bone lesions. He has had lower extremity edema for several years with erythematous induration. This has become pruritic. Patient does have known peripheral vascular disease. The question at that time when he was in [facility] was if the deterioration of his kidney function is because of his progressive kidney disease versus multiple myeloma and it was thought that this was not due to his myeloma, which is thought to be smoldering myeloma as per patient, so no indication for treatment was suggested at that time. HISTORY OF PRESENT ILLNESS Patient is here today for followup of his smoldering multiple myeloma. He is complaining of alternating diarrhea and constipation. He has pain in his feet and hands. He is weak, tired and fatigued. PAST MEDICAL HISTORY 1. Chronic venous insufficiency with edema. 2. Congestive heart failure. 3. Coronary artery disease status post stent in 2007. 4. Peripheral vascular disease status post PTCA, November 2014, November 2015, January 2016, January 2017. 5. Pulmonary hypertension diagnosed in July 2015. 6. Right heart catheterization in December 2016 showed pressure 90/35 with a mean of 52. 7. History of recurrent lower extremity DVT, pulmonary embolism once, on lifelong anticoagulation. 8. Possible COPD, on home oxygen at night. 9. Granulomatous lung disease. 10. Paroxysmal atrial fibrillation. 11. Chronic anxiety. 12. HLA-B27 positive diagnosed with ankylosing spondylitis at [place] in late , currently quiet. 13. GERD. 14. Indeterminate skin rash. 15. Possible peripheral neuropathy. 16. Hypothyroidism. 17. Early cataract. 18. Multiple myeloma ISS stage II. 19. Proteinuria with normal creatinine 2.2 g/24 hours December 2016. 20. Impaired fasting glucose. A1c 6.3 in 2017. 21. Hyperlipidemia. 22. Hypertension. PAST SURGICAL HISTORY 1. Back surgery with laminectomy in . 2. Tonsillectomy. 3. Appendectomy. 4. Cholecystectomy. 5. Splenectomy following a high school sports injury. SOCIAL HISTORY Patient lives in [place], [place]. He is and has two children. 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 He smoked approximately a quarter to half a pack per day for 25-30 years and quit in 1989. He drank a fair amount of alcohol in the past, but now less than weekly. Denies drug use. FAMILY HISTORY Mother had lung cancer and she was a smoker. There is positive family history of polycystic disease. CURRENT MEDICATIONS 1. Metolazone 2.5 mg daily every other day. 2. Lasix 40 mg daily. 3. Tramadol 50 mg q.6 hourly p.r.n. for pain. 4. MiraLax 17 g daily. 5. Alprazolam 0.5 mg three times daily as needed for anxiety. 6. Carvedilol 12.5 mg tablet one-half tablet twice daily. 7. Gabapentin 300 mg three times daily. 8. Magnesium oxide 400 mg daily. 9. Adempas 1 mg tablet. 10. Vitamin D 2000 units daily. 11. Eliquis 5 mg twice daily. 12. Artificial Tears four times daily. 13. Levothyroxine 112 mcg daily. 14. Finasteride 5 mg at bedtime. 15. Aspirin 81 mg daily. 16. Oxygen by inhalation. ALLERGIES TRAZODONE which caused itching. REVIEW OF SYSTEMS CONSTITUTIONAL: No appetite or weight change. No fever, chills or sweating. No recent infection. HEENT: Ears: No tinnitus or hearing problem. Nose: Patient has nasal discharge. Throat: No sore throat or mouth ulcers. Eyes: No diplopia or visual changes. RESPIRATORY: Patient has occasional wheezing from asthma. CARDIOVASCULAR: No chest pain, orthopnea, or paroxysmal nocturnal dyspnea (PND) . No edema. No palpitations. GASTROINTESTINAL: No nausea or vomiting. He has alternating diarrhea and constipation.No heartburn or swallowing difficulties. No abdominal pain. No jaundice. No hematemesis, melena or rectal bleeding. GENITOURINARY: No hematuria or dysuria. MUSCULOSKELETAL: He has pain in the feet and hands. NEUROLOGICAL: Patient has occasional headache. HEMATOLOGIC/LYMPHATIC: He bruises easily, but he is using Eliquis. He is weak , tired and fatigued. No enlarged lymph nodes. SKIN: He has itching. PSYCHIATRIC: No anxiety or depression. PHYSICAL EXAMINATION GENERAL: Looks stable. Well-developed, well-nourished, and in no acute distress. VITAL SIGNS: Blood pressure 107/64, pulse 68 per minute, respirations 18 per minute, temperature 97.8, pulse oximetry 90% on oxygen. HEENT: Head: Atraumatic. No sinus tenderness to palpation. Eyes: No icterus or conjunctivitis. Mouth and Throat: No oral thrush or mucositis. NECK: Supple. No cervical or supraclavicular lymphadenopathy. LUNGS: Clear to auscultation and percussion bilaterally. HEART: Regular rate and rhythm. No gallops, murmurs, clicks or rubs. ABDOMEN: Soft and lax. No tenderness. No hepatosplenomegaly. No masses. EXTREMITIES: There is bilateral leg edema with evidence of chronic venous insufficiency in his legs. LYMPHATICS: No peripheral lymphadenopathy. NEUROLOGICAL: Conscious, alert and oriented times three. No focal motor or sensory deficits. PSYCHIATRIC: Mood and affect appear normal. SKIN: No skin rash, bruise or purpuric eruption. DIAGNOSTIC DATA Urine kappa free light chain was 3.9. IgD level was 172. The skeletal bone survey done on September 30, 2017 was negative for focal bone lesions. ASSESSMENT Smoldering multiple myeloma with IgD lambda. CT skeletal survey came back negative for lytic or sclerotic bone lesions. Patient has been evaluated at [facility] and was diagnosed with smoldering multiple myeloma with recommendation of only followup. His lambda free light chain increased from 88 to 768.5, which I believe this could be wrong. Repeat skeletal bone survey on September 30, 2017 came back negative and the urine kappa light chain was 3.9, and IgD level was 172. I am planning to continue followup. I will see him again in three months with CBC, chem panel, LDH, uric acid, myeloma profile including quantitation of IgD and a 24-hour urine for kappa free light chain and lambda free light chain. PLAN 1. Continue followup. 2. Patient to return in three months with CBC, chem panel, LDH, uric acid, myeloma profile including quantitation of IgD and a 24-hour urine for free light chain and immunoelectrophoresis. 3. Patient is to contact us for any new concern or complaints. MTDD
[2017-10-20] MEDS ORDERED: FURO40TA35 PO (14:15)
[2017-11-23] MEDS ORDERED: CLOP75TA PO (10:38)
[2017-11-23] MEDS ORDERED: DOXE10CA25 PO (10:38)
[2017-11-23] MEDS ORDERED: PANT40TA63 PO (10:49)
[2017-11-25] MEDS ORDERED: RIOC2.5T PO (08:03)
[2017-11-25] MEDS ORDERED: CHOL500045 PO (08:03)
[2017-11-25] MEDS ORDERED: CLOP75TA PO (08:57)
[2017-11-25] MEDS ORDERED: PREG100C44 PO (08:57)
[2017-11-26] MEDS ORDERED: DICL100G39 TOP (11:33)
[2017-12-07] MEDS ORDERED: CLOB15OI16 TP (13:36)
[2017-12-07] MEDS ORDERED: TRIA15OI20 TP (15:39)
[2017-12-20] MEDS ORDERED: PREG50CA48 PO (13:24)
[2017-12-20] MEDS ORDERED: CAR6.25 PO (13:28)
[2017-12-20] MEDS ORDERED: DULO60CA56 PO (13:33)
== END 2017-12-28 ==
LOC: ONC 13:30
PROVIDERS: ATTEND Internal Medicine Hematology
DX: C90.00 Multiple myeloma not having achieved remission (principal); R53.1 Weakness; R53.83 Other fatigue; Z87.891 Personal history of nicotine dependence; Z79.899 Other long term (current) drug therapy; K59.00 Constipation, unspecified; R19.7 Diarrhea, unspecified
CPT/HCPCS: 77075; 82784; 83516; 83883; 84156; 84165; 86334; 86335; 99212

== ENCOUNTER 2017-10-14 21:31 | Inpatient (IN) | payer MEDICARE, BC ==
[~2017-10-14] VITALS: Ht 165.1 cm; Wt 66.4 kg
--- NOTE | 2017-10-14 21:37 | ER Report ---
History and Physical Time Seen By MD: 21:36 HPI/ROS CHIEF COMPLAINT: Total body pain, can't walk HISTORY OF PRESENT ILLNESS: 76-year-old male with an extensive past medical history please see below. Patient denies chest pain, fever, chills, shortness of breath. Patient notes total body ache. He complains of pain with movement of any of his joints. He has chronic stasis dermatitis of his lower extremities. One of them is a little bit erythematous. That seems to be chronic from reviewing his previous records. REVIEW OF SYSTEMS: Respiratory: No cough, no dyspnea. Cardiovascular: No chest pain, no palpitations. Gastrointestinal: No vomiting, no abdominal pain. Musculoskeletal: No back pain. Allergies: Coded Allergies: trazodone (Verified Allergy, Intermediate, 10/14/17) Home Meds Active Scripts Pregabalin (LYRICA) 150 Mg Capsule, 150 MG PO BID, #60 CAPSULE 5 Refills Prov:ELIS VALLE MD 08/13/17 Clobetasol Propionate (CLOBETASOL PROPIONATE) 15 Gm Oint...g., 1 BRANDAN TP BID for 30 Days, #1 TUBE 2 Refills Prov:VIOLETTA WASHINGTON 08/12/17 Furosemide (LASIX) 40 Mg Tablet, 1 TAB PO BID, #90 TAB Prov:ELIS VALLE MD 07/27/17 Carvedilol (CARVEDILOL) 6.25 Mg Tab, 0.5 TAB PO BID, #30 TAB 6 Refills Prov:ELIS VALLE MD 07/27/17 Rosuvastatin Calcium (CRESTOR) 40 Mg Tablet, 40 MG PO QDAY, #90 TAB 1 Refill Prov:ELIS VALLE MD 07/14/17 Finasteride (FINASTERIDE) 5 Mg Tablet, 5 MG PO QHS, #90 TAB 1 Refill Prov:ELIS VALLE MD 07/14/17 Ferrous Sulfate (FERROUS SULFATE) 325 Mg Tablet, 325 MG PO DAILY, #30 TAB 5 Refills Prov:ELIS VALLE MD 06/09/17 Levothyroxine Sodium (LEVOTHYROXINE SODIUM) 0.112 Mg Tab, 0.112 MG PO QAM, #90 TAB 3 Refills Prov:ELIS VALLE MD 06/04/17 Apixaban (ELIQUIS) 5 Mg Tablet, 5 MG PO BID, #60 TAB 3 Refills Prov:ELIS VALLE MD 03/08/17 Reported Medications Oxygen (OXYGEN) Inha, 3 L INH, L 08/07/17 Riociguat (Adempas) 1 Mg Tablet, 2.5 MG PO TID 03/23/17 Cholecalciferol (Vitamin D3) (D-2000) 2,000 Unit Capsule, 5000 UNIT PO QDAY, CAPSULE 03/23/17 Dextran 70/Hypromellose (ARTIFICIAL TEARS) 1 Each Droperette, 1 EACH OP QID 12/31/16 Discontinued Reported Medications Ranitidine Hcl (RANITIDINE HCL) 150 Mg Capsule, 150 MG PO BID, CAPSULE 07/02/17 Oxygen (OXYGEN) Inha, 2.5 L INH, L 07/13/16 Discontinued Scripts Duloxetine Hcl (CYMBALTA) 60 Mg Capsule.dr, 60 MG PO QDAY, #90 CAP 1 Refill Prov:ELIS VALLE MD 08/16/17 Triamcinolone Acetonide 0.1% Oint 15 Gm Tube (TRIAMCINOLONE ACETONIDE 0.1% 15 GM TUBE) 15 Gm Oint...g., 15 GM TP DAILY for 14 Days, #1 TUBE Prov:GIANNI LEAL JR, MD 08/10/17 Hydroxyzine Hcl (HYDROXYZINE HCL) 25 Mg Tablet, 1 TAB PO QID Y for ITCHING, #60 TAB 1 Refill Prov:ELIS VALLE MD 07/02/17 Past Medical/Surgical History PAST MEDICAL HISTORY 1. Chronic venous insufficiency with edema. 2. Congestive heart failure. 3. Coronary artery disease status post stent in 2007. 4. Peripheral vascular disease status post PTCA, November 2014, November 2015, January 2016, January 2017. 5. Pulmonary hypertension diagnosed in July 2015. 6. Right heart catheterization in December 2016 showed pressure 90/35 with a mean of 52. 7. History of recurrent lower extremity DVT, pulmonary embolism once, on lifelong anticoagulation. 8. Possible COPD, on home oxygen at night. 9. Granulomatous lung disease. 10. Paroxysmal atrial fibrillation. 11. Chronic anxiety. 12. HLA-B27 positive diagnosed with ankylosing spondylitis at [place] in late 1970s, currently quiet. 13. GERD. 14. Indeterminate skin rash. 15. Possible peripheral neuropathy. 16. Hypothyroidism. 17. Early cataract. 18. Multiple myeloma ISS stage II. 19. Proteinuria with normal creatinine 2.2 g/24 hours December 2016. 20. Impaired fasting glucose. A1c 6.3 in 2017. 21. Hyperlipidemia. 22. Hypertension. PAST SURGICAL HISTORY 1. Back surgery with laminectomy in 1970s. 2. Tonsillectomy. 3. Appendectomy. 4. Cholecystectomy. 5. Splenectomy following a high school sports injury. Reviewed Nurses Notes: Yes Old Medical Records Reviewed: Yes Hx Smoking: Yes Smoking Status: Former Smoker Exposure to Second Hand Smoke?: No Hx Substance Use Disorder: No Hx Alcohol Use: Yes (1-2 per week) Constitutional Vital Sign - Last 24 Hours 10/14/17 10/14/17 10/14/17 10/14/17 21:36 21:38 21:43 21:46 Temp 98.8 Pulse 84 73 Resp 22 B/P (MAP) 96/55 (69) 96/55 90/67 (75) Pulse Ox 87 91 O2 Delivery Room Air 10/14/17 10/14/17 10/14/17 10/14/17 22:00 22:01 22:02 22:16 Temp 99.5 Pulse 71 71 B/P (MAP) 104/76 (85) Pulse Ox 91 90 10/14/17 10/14/17 10/14/17 10/14/17 22:30 22:31 22:46 23:00 Pulse 70 69 B/P (MAP) 90/44 (59) 99/64 (76) Pulse Ox 89 90 10/14/17 10/14/17 10/14/17 10/14/17 23:01 23:06 23:30 23:36 Pulse 63 73 B/P (MAP) 120/64 (82) Pulse Ox 90 89 93 10/14/17 10/15/17 10/15/17 10/15/17 23:51 00:00 00:06 00:30 Pulse 65 76 B/P (MAP) 116/75 (89) 116/65 (82) Pulse Ox 92 91 10/15/17 10/15/17 10/15/17 10/15/17 00:36 01:00 01:00 01:15 Pulse 86 78 78 B/P (MAP) 126/81 (96) 126/81 (96) Pulse Ox 92 93 92 5/11/18 5/11/18 5/11/18 5/11/18 01:30 01:35 01:50 02:00 Pulse 80 78 86 B/P (MAP) 103/55 (71) 112/64 (80) Pulse Ox 90 90 94 10/15/17 10/15/17 10/15/17 10/15/17 02:05 02:20 02:30 02:35 Pulse 91 79 76 B/P (MAP) 117/70 (86) Pulse Ox 92 93 94 10/15/17 10/15/17 10/15/17 10/15/17 02:55 03:10 03:25 03:40 Pulse 77 72 84 85 Pulse Ox 91 93 92 88 10/15/17 03:55 Pulse 74 Pulse Ox 92 Physical Exam Vital signs stable, afebrile, pulse ox normal General Appearance: The patient is alert, has no immediate need for airway protection and no current signs of toxicity. No acute distress HEENT: Pupils equal and round no injection. Oropharynx with moist membranes, no erythema Respiratory: Chest is non tender, lungs are clear to auscultation. No wheezing or rails Cardiac: regular rate and rhythm, distant heart sounds Gastrointestinal: Abdomen is soft and non tender, no masses, bowel sounds normal. Musculoskeletal: Neck: Neck is supple and non tender. No JVD, no lymphadenopathy Extremities have full range of motion and are non tender. No edema, stasis dermatitis, left lower extremity, moderate erythema Skin: As noted DIFFERENTIAL DIAGNOSIS: After history and physical exam differential diagnosis was considered for weakness including but not limited to electrolyte abnormality , depression, anxiety, CVA, spinal cord abnormality, and infectious causes. , adult fever including but not limited to viral syndromes including influenza, urinary tract infection, pneumonia and sepsis. Medical Decision Making Data Points Result Diagram: 10/14/17211310/14/172113 Laboratory Hematology Test 10/14/17 21:14 10/14/17 22:39 10/15/17 00:00 Red Blood Count 4.58 M/uL (4.00-5.60) Mean Corpuscular Volume 80.4 fL (80.0-96.0) Mean Corpuscular Hemoglobin 26.0 pg (26.0-33.0) Mean Corpuscular Hemoglobin Concent 32.4 g/dL (32.0-36.0) Red Cell Distribution Width 20.2 % (11.5-14.5) Mean Platelet Volume 8.3 fL (7.2-11.1) Neutrophils (%) (Auto) 82.6 % (39.4-72.5) Lymphocytes (%) (Auto) 8.9 % (17.6-49.6) Monocytes (%) (Auto) 7.3 % (4.1-12.4) Eosinophils (%) (Auto) 1.0 % (0.4-6.7) Basophils (%) (Auto) 0.2 % (0.3-1.4) Nucleated RBC Relative Count (auto) 0.0 /100WBC Neutrophils # (Auto) 14.9 K/uL (2.0-7.4) Lymphocytes # (Auto) 1.6 K/uL (1.3-3.6) Monocytes # (Auto) 1.3 K/uL (0.3-1.0) Eosinophils # (Auto) 0.2 K/uL (0.0-0.5) Basophils # (Auto) 0.0 K/uL (0.0-0.1) Nucleated RBC Absolute Count (auto) 0.00 K/uL Peripheral Blood Smear No Y/N Sodium Level 132 mmol/L (137-145) Potassium Level 4.5 mmol/L (3.5-5.0) Chloride Level 101 mmol/L (98-107) Carbon Dioxide Level 17 mmol/L (22-30) Blood Urea Nitrogen 41 mg/dl (9-21) Creatinine 1.40 mg/dl (0.66-1.25) Glomerular Filtration Rate Calc 49.1 Random Glucose 129 mg/dl (75-110) Calcium Level 8.7 mg/dl (8.4-10.2) Total Bilirubin 0.9 mg/dl (0.2-1.3) Aspartate Amino Transf (AST/SGOT) 18 U/L (0-35) Alanine Aminotransferase (ALT/SGPT) 22 U/L (0-56) Alkaline Phosphatase 120 U/L (0-126) Total Creatine Kinase 21 U/L (55-170) C-Reactive Protein 3.7 mg/dl (<1.0) Total Protein 6.7 gm/dl (6.3-8.2) Albumin 3.1 g/dl (3.5-5.0) Lactate 1.1 mmol/L (0.7-2.1) Urine Color Yellow Urine Clarity Clear Urine pH 5.0 pH (4.8-9.5) Urine Specific [place] 1.009 Urine Protein Negative mg/dL (NEGATIVE) Urine Glucose (UA) Negative mg/dL (NEGATIVE) Urine Ketones Negative mg/dL (NEGATIVE) Urine Blood Negative (NEGATIVE) Urine Nitrite Negative (NEGATIVE) Urine Bilirubin Negative (NEGATIVE) Urine Urobilinogen Negative mg/dL (0.2-1.9) Urine Leukocyte Esterase Negative (NEGATIVE) Urine RBC 1 /HPF (0-2/HPF) Urine WBC 1 /HPF (0-5/HPF) Urine Squamous Epithelial Cells None /LPF (</=FEW) Urine Bacteria Negative /HPF (NONE-FEW) Urine Hyaline Casts Few /LPF (NONE-FEW) Urine Mucus None /HPF (NONE-FEW) Chemistry Test 10/14/17 21:14 10/14/17 22:39 10/15/17 00:00 White Blood Count 18.0 k/uL (4.5-11.0) Red Blood Count 4.58 M/uL (4.00-5.60) Hemoglobin 11.9 g/dL (14.0-18.0) Hematocrit 36.8 % (42.0-52.0) Mean Corpuscular Volume 80.4 fL (80.0-96.0) Mean Corpuscular Hemoglobin 26.0 pg (26.0-33.0) Mean Corpuscular Hemoglobin Concent 32.4 g/dL (32.0-36.0) Red Cell Distribution Width 20.2 % (11.5-14.5) Platelet Count 346 K/uL (150-450) Mean Platelet Volume 8.3 fL (7.2-11.1) Neutrophils (%) (Auto) 82.6 % (39.4-72.5) Lymphocytes (%) (Auto) 8.9 % (17.6-49.6) Monocytes (%) (Auto) 7.3 % (4.1-12.4) Eosinophils (%) (Auto) 1.0 % (0.4-6.7) Basophils (%) (Auto) 0.2 % (0.3-1.4) Nucleated RBC Relative Count (auto) 0.0 /100WBC Neutrophils # (Auto) 14.9 K/uL (2.0-7.4) Lymphocytes # (Auto) 1.6 K/uL (1.3-3.6) Monocytes # (Auto) 1.3 K/uL (0.3-1.0) Eosinophils # (Auto) 0.2 K/uL (0.0-0.5) Basophils # (Auto) 0.0 K/uL (0.0-0.1) Nucleated RBC Absolute Count (auto) 0.00 K/uL Peripheral Blood Smear No Y/N Glomerular Filtration Rate Calc 49.1 Calcium Level 8.7 mg/dl (8.4-10.2) Total Bilirubin 0.9 mg/dl (0.2-1.3) Aspartate Amino Transf (AST/SGOT) 18 U/L (0-35) Alanine Aminotransferase (ALT/SGPT) 22 U/L (0-56) Alkaline Phosphatase 120 U/L (0-126) Total Creatine Kinase 21 U/L (55-170) C-Reactive Protein 3.7 mg/dl (<1.0) Total Protein 6.7 gm/dl (6.3-8.2) Albumin 3.1 g/dl (3.5-5.0) Lactate 1.1 mmol/L (0.7-2.1) Urine Color Yellow Urine Clarity Clear Urine pH 5.0 pH (4.8-9.5) Urine Specific [place] 1.009 Urine Protein Negative mg/dL (NEGATIVE) Urine Glucose (UA) Negative mg/dL (NEGATIVE) Urine Ketones Negative mg/dL (NEGATIVE) Urine Blood Negative (NEGATIVE) Urine Nitrite Negative (NEGATIVE) Urine Bilirubin Negative (NEGATIVE) Urine Urobilinogen Negative mg/dL (0.2-1.9) Urine Leukocyte Esterase Negative (NEGATIVE) Urine RBC 1 /HPF (0-2/HPF) Urine WBC 1 /HPF (0-5/HPF) Urine Squamous Epithelial Cells None /LPF (</=FEW) Urine Bacteria Negative /HPF (NONE-FEW) Urine Hyaline Casts Few /LPF (NONE-FEW) Urine Mucus None /HPF (NONE-FEW) Urinalysis Test 10/15/17 00:00 Urine Color Yellow Urine Clarity Clear Urine pH 5.0 pH (4.8-9.5) Urine Specific [place] 1.009 Urine Protein Negative mg/dL (NEGATIVE) Urine Glucose (UA) Negative mg/dL (NEGATIVE) Urine Ketones Negative mg/dL (NEGATIVE) Urine Blood Negative (NEGATIVE) Urine Nitrite Negative (NEGATIVE) Urine Bilirubin Negative (NEGATIVE) Urine Urobilinogen Negative mg/dL (0.2-1.9) Urine Leukocyte Esterase Negative (NEGATIVE) Urine RBC 1 /HPF (0-2/HPF) Urine WBC 1 /HPF (0-5/HPF) Urine Squamous Epithelial Cells None /LPF (</=FEW) Urine Bacteria Negative /HPF (NONE-FEW) Urine Hyaline Casts Few /LPF (NONE-FEW) Urine Mucus None /HPF (NONE-FEW) Microbiology Microbiology Date/Time Source Procedure Growth Status 10/14/17 22:49 Blood Peripheral Draw Blood Culture - Preliminary NO GROWTH AFTER 1 DAY, REINCUBATED Resulted 10/14/17 22:39 Blood Peripheral Draw Blood Culture - Preliminary NO GROWTH AFTER 1 DAY, REINCUBATED Resulted EKG/Imaging EKG Interpretation 12 lead EK Rhythm: Sinus bradycardia with first-degree AV block, right bundle branch block pattern, comparison to previous EKG dated 08/07/17, no significant morphologic change [place]: normal QRS: Right bundle branch block pattern ST segments: Nonspecific repolarization changes secondary to right bundle branch block pattern Imaging X-ray: Single view portable chest x-ray was obtained. I viewed the images myself on the PACS system. My interpretation of the images is: No infiltrate, no effusion, cardiomegaly, comparison to previous chest x-ray 08/07/17, no significant change. The radiologist interpretation had no clinically significant variation from this interpretation. ED Course/Re-evaluation Clinical Indication for ER IV: Hydration, IV Access ED Course Patient complaining of generalized weakness and body pain. He has pain with movement of any of his extremities. Patient has pain on palpation. On neurologic examination. He has a nonfocal exam except he is unsteady in his gait. Patient has extensive diagnostic testing. He states she's been failing to thrive at home. He's been able to walk this way called and wants to bring him in tonight. Extensive diagnostic evaluation shows no acute findings. EKG troponin are unremarkable. CRP is mildly elevated sedimentation rate is normal. His chronic renal failure is at baseline. Patient sedimentation rate was normal 10/15/2017 3:52:14 am case discussed with Dr. Banuelos hospitalist on-call, who accepts patient for admission Decision to Disposition Date: October 15, 2017 Decision to Disposition Time: 03:16 Depart Departure Latest Vital Signs Vital Signs Date Time Temp Pulse Resp B/P (MAP) Pulse Ox O2 Delivery O2 Flow Rate FiO2 10/15/17 03:55 74 92 10/15/17 02:30 117/70 (86) 10/14/17 22:02 99.5 10/14/17 21:38 22 Room Air Impression: Primary Impression: Weakness generalized Additional Impressions: Body aches Low grade fever Leukocytosis Condition: Improved Disposition: Admitted from ER Referrals: ELIS VALLE MD (PCP) Problem Qualifiers Additional Impressions: Leukocytosis Leukocytosis type: unspecified Qualified Codes: D72.829 - Elevated white blood cell count, unspecified EVELINE MONTGOMERY DO October 14, 2017 21:36
[2017-10-14] MEDS ORDERED: methylPREDNIS SUCC 125 MG/2ML IVP ONE (22:00)
[2017-10-14] MEDS ORDERED: ACETAMINOPHEN 500 MG TAB PO ONE (22:00)
[2017-10-14 22:09] LABS: PLATELET COUNT, AUTOMATED 346 K/uL (150-450)
[2017-10-14] MEDS ORDERED: NS(*) 0.9% 500 ML BAG 500 ML IV ONE (22:35)
--- NOTE | 2017-10-14 23:27 | RADIOLOGY IMAGING REPORT ---
FACILITY: [facility] PATIENT NAME: Meño Arechiga : 1940 MR: [id number] V: [id number] EXAM DATE: ORDERING PHYSICIAN: EVELINE MONTGOMERY TECHNOLOGIST: Location: [facility] [place] Patient: Meño Arechiga : 1940 Visit/Account:[id number] Date of Sevice: 10/14/2017 SINGLE AP RADIOGRAPH OF THE CHEST 10/14/2017 10:30 PM. INDICATION: Fever, pain all over. COMPARISON: 08/07/2017. FINDINGS: Lungs are well-expanded. There is no consolidation. Left lower lobe calcified granuloma and left hil ar calcified lymph nodes consistent with old granulomatous disease. Minimal interstitial prominenc e. No pleural effusion or pneumothorax. Unchanged moderate enlargement of the cardiac silhouette. Cholecystectomy clips. IMPRESSION: 1. No apparent focal pneumonia. 2. Mild pulmonary edema. 3. Unchanged cardiomegaly. Report Dictated By: Saurabh Rizo MD at 10/14/2017 11:21 PM Report E-Signed By: Saurabh Rizo MD at 10/14/2017 11:23 PM WSN:[id number]
[2017-10-15] MEDS ORDERED: NS(*) 0.9% 500 ML BAG 500 ML IV ONE (00:25)
--- NOTE | 2017-10-15 03:34 | EKG ---
FACILITY: [facility] PATIENT NAME: BEKAH DAVIS : [id number] MR: [id number] V: [id number] EXAM DATE: ORDERING PHYSICIAN: EVELINE MONTGOMERY TECHNOLOGIST: VASILIY Test Reason : WEAKNESS Blood Pressure : / mmHG Vent. Rate : 071 BPM Atrial Rate : 187 BPM P-R Int : 000 ms QRS Dur : 130 ms QT Int : 460 ms P-R-T Axes : 063 107 -77 degrees QTc Int : 499 ms Atrial flutter with variable AV block vs. Third degree AV block Right bundle branch block Septal infarct , age undetermined T wave abnormality, consider inferolateral ischemia Abnormal ECG When compared with ECG of 07-AUG-2017 18:24, Confirmed by NAN CORTES ([id number]) on 10/15/2017 1:02:53 PM Referred By: Confirmed By:NAN CORTES
[2017-10-15 04:30] VITALS: BP 115/71
--- NOTE | 2017-10-15 06:14 | History & Physical ---
History of Present Illness Chief Complaint Unable to walk History of Present Illness is a 76-year-old male with an extensive past medical history of Chronic venous insufficiency with edema, Congestive heart failure, Coronary artery disease status post stent in 2007, Peripheral vascular disease status post PTCA, November 2014, November 2015, January 2016, January 2017, Pulmonary hypertension diagnosed in July 2015, Right heart catheterization in December 2016 showed pressure 90/35 with a mean of 52, History of recurrent lower extremity DVT, pulmonary embolism once, on lifelong anticoagulation, Possible COPD, on home oxygen at night, Granulomatous lung disease, Paroxysmal atrial fibrillation, Chronic anxiety, HLA-B27 positive diagnosed with ankylosing spondylitis at [place] in late , currently quiet, GERD, Possible peripheral neuropathy, Hypothyroidism, Multiple myeloma ISS stage II, Normal creatinine with proteinuria 2.2 g/24 hours December 2016, Impaired fasting glucose. A1c 6.3 in 2017, Hyperlipidemia, Hypertension, allergic to Trazodone. and former smoker who presented to the ER @ [facility] complaining of unsteady gait and unable to walk due to significant pain all over his body and failure to thrive. He mentioned that this pain and weakness got worse few days ago but he denies any dysarthria or dysphagia. He lives alone at home and he would like to have some rehab before he goes home. Patient denies chest pain, fever, chills, shortness of breath. Patient c/o total body ache. He complains of pain with movement of any of his joints. He has chronic stasis dermatitis of his lower extremities. He denies any h/o CVA in the past. He was taking Lasix 40mg po bid at home and he clinically looks dehydrated with scaly skin. I discussed the case with the ER-MD and admitted the patient for further evaluation and management. History Home Meds Active Scripts Duloxetine Hcl (CYMBALTA) 60 Mg Capsule.dr, 60 MG PO QDAY, #90 CAP 1 Refill Prov:ELIS VALLE MD 08/16/17 Pregabalin (LYRICA) 150 Mg Capsule, 150 MG PO BID, #60 CAPSULE 5 Refills Prov:ELIS VALLE MD 08/13/17 Clobetasol Propionate (CLOBETASOL PROPIONATE) 15 Gm Oint...g., 1 BRNADAN TP BID for 30 Days, #1 TUBE 2 Refills Prov:VIOLETTA WASHINGTON NPC 08/12/17 Triamcinolone Acetonide 0.1% Oint 15 Gm Tube (TRIAMCINOLONE ACETONIDE 0.1% 15 GM TUBE) 15 Gm Oint...g., 15 GM TP DAILY for 14 Days, #1 TUBE Prov:GIANNI LEAL JR, MD 08/10/17 Furosemide (LASIX) 40 Mg Tablet, 1 TAB PO BID, #90 TAB Prov:ELIS VALLE MD 07/27/17 Carvedilol (CARVEDILOL) 6.25 Mg Tab, 0.5 TAB PO BID, #30 TAB 6 Refills Prov:ELIS VALLE MD 07/27/17 Rosuvastatin Calcium (CRESTOR) 40 Mg Tablet, 40 MG PO QDAY, #90 TAB 1 Refill Prov:ELIS VALLE MD 07/14/17 Finasteride (FINASTERIDE) 5 Mg Tablet, 5 MG PO QHS, #90 TAB 1 Refill Prov:ELIS VALLE MD 07/14/17 Hydroxyzine Hcl (HYDROXYZINE HCL) 25 Mg Tablet, 1 TAB PO QID Y for ITCHING, #60 TAB 1 Refill Prov:ELIS VALLE MD 07/02/17 Ferrous Sulfate (FERROUS SULFATE) 325 Mg Tablet, 325 MG PO DAILY, #30 TAB 5 Refills Prov:ELIS VALLE MD 06/09/17 Levothyroxine Sodium (LEVOTHYROXINE SODIUM) 0.112 Mg Tab, 0.112 MG PO QAM, #90 TAB 3 Refills Prov:ELIS VALLE MD 06/04/17 Apixaban (ELIQUIS) 5 Mg Tablet, 5 MG PO BID, #60 TAB 3 Refills Prov:ELIS VALEL MD 03/08/17 Reported Medications Oxygen (OXYGEN) Inha, 4 L INH, L 08/07/17 Ranitidine Hcl (RANITIDINE HCL) 150 Mg Capsule, 150 MG PO BID, CAPSULE 07/02/17 Riociguat (Adempas) 1 Mg Tablet, 1.5 MG PO TID 03/23/17 Cholecalciferol (Vitamin D3) (D-2000) 2,000 Unit Capsule, 2000 UNIT PO QDAY, CAPSULE 03/23/17 Dextran 70/Hypromellose (ARTIFICIAL TEARS) 1 Each Droperette, 1 EACH OP QID 12/31/16 Oxygen (OXYGEN) Inha, 2.5 L INH, L 07/13/16 Allergies: Coded Allergies: trazodone (Verified Allergy, Intermediate, 10/14/17) Patient History: Cerebral hemorrhage FATHER, , Age:47 FH polycystic kidney FATHER, , Age:47 FH: cancer MOTHER, , Age:64 FH: hypertension FATHER, , Age:47 Hx Smoking: Yes Smoking Status: Former Smoker Exposure to Second Hand Smoke?: No Caffeine Intake: Coffee Caffeine/Cups Per Day: 1 Hx Alcohol Use: Yes (1-2 per week) Hx Substance Use Disorder: No Social Drug Use: Never Review of Systems Constitutional: Fever, Weight Loss, No Weight Gain, No Chills Neurological: Weakness, No Dizziness Cardiovascular: No Chest Pain, No Palpitations Respiratory: No Shortness of Breath, No Cough, No Wheezing Gastrointestinal: Nausea, No Vomiting, No Diarrhea, No Dysphagia, No Constipation, No Early Satiety, No Hematemesis, No Hematochezia, No Melena, No Abdominal Pain, No Other Genitourinary: No Dysuria, No Hematuria, No Urinary Incontinence Musculoskeletal: Pain, Impaired Mobility, No Sprain, No Strain, No Other Psychiatric: No Depression, No Anxiety Exam Vital Signs Vital Signs Date Time Temp Pulse Resp B/P (MAP) Pulse Ox O2 Delivery O2 Flow Rate FiO2 10/15/17 04:30 95 Blow-by 5.0 10/15/17 04:30 97.1 69 16 115/71 (86) General Appearance: Alert, Awake, No Acute Distress, Afebrile Neuro: No Gross deficits Eyes: PERRLA ENT: Normal Neck: No Masses Cardiovascular: Normal Rhythm & Peripheral Pulses, No Edema, No JVD Respiratory: No Respiratory Distress GI: Abd Soft and Non-Tender : Normal Musculoskeletal: Other (weak LUE and decrease L-hand appeals 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 He is clinically dehydrated possibly due to taking Lasix 40mg po bid at home. I will start IVF normal saline 100ml/h I will repeat his BMP in am I will get PT consult for therapy I will get transition social worker intervention for subacute rehab. I will get CT Scan of his head to r/o CVA cause his L-sided weakness I will use Morphine 2-4mg IV q4h as needed for pain I will also use Zofran 4mg IV for his nausea I will start Protonix for his GERD/GIP For DVTP he is on Eliquis (2) Acute kidney injury Status: Acute Assessment & Plan: He was taking Lasix 40mg po bid at home and presented with high BUN/Cr 41/1.4 I will start IVF normal saline 100ml/h I will repeat his BMP in am I will get PT consult for therapy I will try NSAIDS for his arthritis once his kidney function improves (3) PVD (peripheral vascular disease) Status: Chronic Assessment & Plan: He has had multiple stents placed in the past and he is on Eliquis now, will continue (4) Pulmonary hypertension Status: Chronic Assessment & Plan: He is currently taking Adempas 1.5mg po tid and he is stable (5) Monoclonal gammopathies Status: Chronic Assessment & Plan: stable Condition Guarded Time Spent on Plan of Care: > 30 min Copies to: ELIS VALLE MD Venous Thromboembolism VTE Risk Physician Assess for VTE Risk: Yes Patient's VTE Risk: Low VTE Diagnostic Test 2 Days Prior to Admit: No Antithrombotics Is Pt On Any Antithrombotics?: No Heart Failure Ejection Fraction %: 60 RVSP (mmHg): 82 NYHA Class: II Is Patient on MAHI Inhibitor?: No Is Patient on Beta Jigar?: Yes Exam Sepsis Risk: No Definite Risk MAGALI MILTON MD October 15, 2017 06:14
[2017-10-15] MEDS ORDERED: hydrOXYzine 25 MG TAB PO PRN (06:40)
[2017-10-15] MEDS ORDERED: ONDANSETRON 4 MG TAB PO PRN (07:15)
[2017-10-15] MEDS ORDERED: ACETAMINOPHEN 325 MG TAB PO PRN (07:15)
[2017-10-15] MEDS ORDERED: MORPHINE 4 MG/ML SDV IVP PRN (07:15)
[2017-10-15] MEDS ORDERED: ONDANSETRON 4 MG/2 ML VIAL IVP PRN (07:15)
[2017-10-15] MEDS: LEVOTHYROXINE SOD 0.112 MG TAB PO SCH (07:22)
[2017-10-15] MEDS ORDERED: NS(*) 0.9% 1000 ML BAG 1,000 ML IV PRN (07:25)
[2017-10-15 07:27] VITALS: BP 122/75
[2017-10-15] MEDS ORDERED: FERROUS SULFATE 325 MG TAB PO SCH (08:00)
[2017-10-15] MEDS ORDERED: CARVEDILOL 3.125 MG TAB PO SCH (09:00)
[2017-10-15] MEDS: PATIENT'S OWN MED PO SCH ×2 (09:00→18:01)
[2017-10-15 10:13] VITALS: Ht 165.1 cm; Wt 66.4 kg
--- NOTE | 2017-10-15 10:16 | Hospitalist Progress Note ---
Subjective Progress Notes Subjective This patient was admitted for weakness. He had no significant changes overnight. Patient Complains of: Cardiovascular: No: Chest Pain Respiratory: No: Shortness of Breath Physical Exam Vital Signs Date Time Temp Pulse Resp B/P (MAP) Pulse Ox O2 Delivery O2 Flow Rate FiO2 10/15/17 07:34 92 Nasal Cannula 3.0 10/15/17 07:27 97.6 67 14 122/75 (91) Neuro: No Gross deficits Eyes: PERRLA Cardiovascular: Regular Rate and Rhythm Respiratory: Clear to Auscultation Extremities: No Edema Integumentary: No Cyanosis Result Diagram: 10/14/17211310/14/172113 Assessment and Plan Problems: (1) Weakness generalized Status: Acute Assessment & Plan: He did present with weakness to the point where he was unable to get off the floor. His symptoms are now mostly resolved after receiving IV fluids and one dose of steroids. An ESR is negative this morning. Physical and occupational therapy consults are pending. (2) Acute kidney injury Status: Acute Assessment & Plan: He has improved with IV fluids. Repeat labs are ordered for the morning. (3) PVD (peripheral vascular disease) Status: Chronic Assessment & Plan: He has had multiple stents placed in the past and he is on Eliquis now. (4) Pulmonary hypertension Status: Chronic Assessment & Plan: He is currently taking Adempas 1.5mg po tid and he is stable (5) Monoclonal gammopathies Status: Chronic Assessment & Plan: stable Heart Failure Ejection Fraction %: 60 RVSP (mmHg): 82 NYHA Class: II Is Patient on MAHI Inhibitor?: No Is Patient on Beta Jigar?: Yes Exam Sepsis Risk: No Definite Risk NAN CORTES DO October 15, 2017 10:16
[2017-10-15] MEDS: ROSUVASTATIN CALCIUM 10 MG TAB PO SCH (10:44)
[2017-10-15] MEDS: APIXABAN 2.5 MG TABLET PO SCH ×2 (10:44→20:32)
[2017-10-15] MEDS: FERROUS SULFATE 325 MG TAB PO SCH (10:44)
[2017-10-15] MEDS: PANTOPRAZOLE SOD 40 MG TABEC PO SCH (10:44)
[2017-10-15] MEDS: PREGABALIN 150 MG CAPSULE PO SCH ×2 (10:45→20:31)
[2017-10-15] MEDS ORDERED: IOPAMIDOL 76% 75 ML INFUS BTL 75 ML ONE (11:47)
[2017-10-15 12:32] VITALS: BP 112/68
--- NOTE | 2017-10-15 12:54 | EKG ---
FACILITY: [facility] PATIENT NAME: BEKAH DAVIS : [id number] MR: [id number] V: [id number] EXAM DATE: ORDERING PHYSICIAN: NAN CORTES TECHNOLOGIST: BELINDA Thompson Reason : HEART BLOCK Blood Pressure : / mmHG Vent. Rate : 065 BPM Atrial Rate : 197 BPM P-R Int : 000 ms QRS Dur : 124 ms QT Int : 460 ms P-R-T Axes : 051 117 -71 degrees QTc Int : 478 ms Atrial flutter with variable AV block vs Third degree AV block Right bundle branch block T wave abnormality, consider inferolateral ischemia Abnormal ECG No previous ECGs available Confirmed by NAN CORTES ([id number]) on 10/15/2017 1:04:04 PM Referred By: SEBASTIAN Confirmed By:NAN CORTES
--- NOTE | 2017-10-15 13:12 | Hospitalist Progress Note ---
Physical Exam Vital Signs Date Time Temp Pulse Resp B/P (MAP) Pulse Ox O2 Delivery O2 Flow Rate FiO2 10/15/17 12:32 97.5 68 16 112/68 (83) 93 Nasal Cannula 3.0 Result Diagram: 10/14/17211310/14/172113 Assessment and Plan Problems: (1) Weakness generalized Status: Acute Assessment & Plan: He did present with weakness to the point where he was unable to get off the floor. His symptoms are now mostly resolved after receiving IV fluids and one dose of steroids. An ESR is negative this morning. Physical and occupational therapy consults are pending. (2) Atrial flutter Status: Chronic Assessment & Plan: He does have a history of atrial flutter and is on chronic treatment with Eliquis. His EKG's currently show what appears to be a third degree block vs atypical flutter. These were reviewed with cardiology and were felt to be more consistent with flutter. We will keep him on telemetry overnight and repeat a troponin. (3) Acute kidney injury Status: Acute Assessment & Plan: He has improved with IV fluids. Repeat labs are ordered for the morning. (4) PVD (peripheral vascular disease) Status: Chronic Assessment & Plan: He has had multiple stents placed in the past and he is on Eliquis now. (5) Pulmonary hypertension Status: Chronic Assessment & Plan: He is currently taking Adempas 1.5mg po tid and he is stable (6) Monoclonal gammopathies Status: Chronic Assessment & Plan: stable Heart Failure Ejection Fraction %: 60 RVSP (mmHg): 82 NYHA Class: II Is Patient on MAHI Inhibitor?: No Is Patient on Beta Jigar?: Yes Exam Sepsis Risk: No Definite Risk NAN CORTES DO October 15, 2017 13:12
[2017-10-15 14:38] VITALS: BP 127/79
--- NOTE | 2017-10-15 14:47 | RADIOLOGY IMAGING REPORT ---
FACILITY: [facility] PATIENT NAME: Meño Arechiga : 1940 MR: [id number] V: [id number] EXAM DATE: ORDERING PHYSICIAN: MAGALI MILTON TECHNOLOGIST: [place] [facility] [place] Arech[place] : 1940 Visit/Account:[id number] Date of Sevice: 10/15/2017 EXAMINATION: CT Head without intravenous contrast CT Head with intravenous contrast HISTORY: Left-sided weakness. TECHNIQUE: Contiguous axial images were obtained from the skull base to the vertex before and after IV contrast. Sagittal and coronal reformatted images are also submitted. One of the following dose optimization techniques was utilized in the performance of this exam: Autom ated exposure control; adjustment of the mA and/or kV according to the patient's size; or use of an i terative reconstruction technique. Specific details can be referenced in the facility's radiology C T exam operational policy. CONTRAST: 75 mL of IV Isovue-370 COMPARISON: Noncontrast head CT dated 08/07/2017. FINDINGS: Brain volume: Mild generalized volume loss. Ventricles: Negative. Acute ischemic changes: None. Hemorrhage: None. Masses / edema: None. Enhancement: Negative. Caballero-white: Negative. White matter: Stable moderate chronic microvascular ischemic changes. Vessels: Carotid siphon and vertebral artery calcifications. Otherwise negative. Extra-axial: Negative. Calvarium / skull base: Negative. Visualized sinuses / orbits: Rightward nasal septal deviation. IMPRESSION: No acute intracranial abnormality or mass. Report Dictated By: Macario Garcia MD at 10/15/2017 2:39 PM Report E-Signed By: Macario Garcia MD at 10/15/2017 2:44 PM WSN:[id number]
[2017-10-15 18:48] VITALS: BP 133/78
[2017-10-15] MEDS: RIOCIGUAT 2.5 MG PO SCH (20:32)
[2017-10-15] MEDS ORDERED: FINASTERIDE 5 MG TAB PO SCH (21:00)
[2017-10-15] MEDS ORDERED: MAGNESIUM HYDROXIDE* 30ML UDCP PO PRN (22:00)
[2017-10-15] MEDS: DOCUSATE SODIUM 100 MG CAP PO SCH (22:29)
[2017-10-15 22:30] VITALS: BP 110/60
[2017-10-16 05:29] VITALS: BP 108/65
[2017-10-16] MEDS: LEVOTHYROXINE SOD 0.112 MG TAB PO SCH (05:36)
[2017-10-16 06:18] LABS: PLATELET COUNT, AUTOMATED 302 K/uL (150-450)
[2017-10-16 08:44] VITALS: BP 155/84
[2017-10-16] MEDS: NITROGLYCERIN 0.4 MG SUBL SL PRN ×2 (09:20→09:26)
[2017-10-16 09:21] VITALS: BP 176/101
--- NOTE | 2017-10-16 09:26 | EKG ---
FACILITY: [facility] [place] PATIENT NAME: BEKAH DAVIS : [id number] MR: [id number] V: [id number] EXAM DATE: ORDERING PHYSICIAN: MAGALI MILTON TECHNOLOGIST: BELINDA Thompson Reason : CP Blood Pressure : / mmHG Vent. Rate : 106 BPM Atrial Rate : 106 BPM P-R Int : 128 ms QRS Dur : 128 ms QT Int : 360 ms P-R-T Axes : 025 117 -63 degrees QTc Int : 478 ms Sinus tachycardia Right bundle branch block Diffuse ST-T findings Abnormal ECG Confirmed by RONDA GARCIA ([id number]) on 10/18/2017 10:56:50 AM Referred By: YOAN Confirmed By:RONDA GARCIA
[2017-10-16 09:28] VITALS: BP 154/80
[2017-10-16] MEDS ORDERED: CARVEDILOL 3.125 MG TAB PO SCH (09:46)
[2017-10-16] MEDS: RIOCIGUAT 2.5 MG PO SCH ×2 (09:49→14:01)
[2017-10-16] MEDS: DOCUSATE SODIUM 100 MG CAP PO SCH (09:49)
[2017-10-16] MEDS: PREGABALIN 150 MG CAPSULE PO SCH (09:50)
[2017-10-16] MEDS: PANTOPRAZOLE SOD 40 MG TABEC PO SCH (09:50)
[2017-10-16] MEDS: ROSUVASTATIN CALCIUM 10 MG TAB PO SCH (09:50)
[2017-10-16] MEDS: APIXABAN 2.5 MG TABLET PO SCH (09:50)
[2017-10-16] MEDS: FERROUS SULFATE 325 MG TAB PO SCH (09:50)
[2017-10-16 11:41] VITALS: BP 123/61
--- NOTE | 2017-10-16 12:21 | Medical Nutrition Therapy ---
Nutrition Anthropometrics Height (Inches): 65.00 Height (Calculated Centimeters: 165.815985 Weight (Pounds): 146 Weight (Calculated Kilograms): 66.366 BMI Calculated: 24.29 Christiano Nutrition Score: Adequate Christiano Nutrition Risk Score: 16 Dietary Referral Nutrition Risk Factors: Nutrition Risk Comment: Physical Findings Physical Appearance: BMI 24 Skin Appearance Skin Appearance: Edema Edema Location Modifier: Both Edema Location: Ankle Type of Edema: Degree of Edema: Gastrointestinal Symptoms GI Symtoms: Constipation Tube Present: Bowel Sounds: Recent Bowel Pattern: Constipated, Diarrhea Stool Characteristics: Nutritional Diagnosis Nutritional Risk Acuity 2: CHF w/Complication, Chronic Renal Failure Nutritional Risk Acuity 3: GERD Nutritional Risk Acuity 4: Good Appetite Past Medical History: Pulmonary embolism, GERD, CHF, dyslipidemia, DVT, Acute renal failure Nutritional Acuity: 2-Moderate Nutrition Diagnosis: Decreased Nutrient Needs Nutrition Etiology: Physiological Causes Nutrition Problem/Etiology/Sym: Decreased cholesterol, fat and sodium needs related to physiological causes as evidenced by hx of CHF and generalized weakness. Energy Requirement: 1650 ([id number]) Protein Requirement: 53 (.8 g/kg) Fluid Requirement: 1980 (30 ml/kg) Diet Type: Cardiac Nutrition Intervention: Cont diet as ordered, Encourage intake Nutrition Monitoring & Eval RD Patient Assessment Time: [address] Assessment Type: RD Assessment Patient Nutrition Acuity: 2-Moderate Follow Up Date: October 21, 2017 Nutritional Comment: 10/15: Pt admitted for fever and weakness. No labs have been doccumented at this time. Pt is on cardiac diet, however no intake has been recored. Continue to monitor pt progress.-MT 10/16 Pt admitted for generalized weakness and failure to thrive. PMH of CHF and acute kidney injury. Currently on cardiac diet with intake of 100% of 3 meals in facility. Notable labs include low H/H, Na 135, BUN 53, creatinine 1.4, glc 129-183, CRP 3.7 and alb 3.1. No fluid rest. at this time. Will cont to monitor and encourage intake. LIAM PEREZ October 16, 2017 12:21
--- NOTE | 2017-10-16 15:33 | Hospitalist Progress Note ---
Subjective Progress Notes Subjective is a 76-year-old male with an extensive past medical history of Chronic venous insufficiency with edema, Congestive heart failure, Coronary artery disease status post stent in 2007, Peripheral vascular disease status post PTCA, November 2014, November 2015, January 2016, January 2017, Pulmonary hypertension diagnosed in July 2015, Right heart catheterization in December 2016 showed pressure 90/35 with a mean of 52, History of recurrent lower extremity DVT, pulmonary embolism once, on lifelong anticoagulation, Possible COPD, on home oxygen at night, Granulomatous lung disease, Paroxysmal atrial fibrillation, Chronic anxiety, HLA-B27 positive diagnosed with ankylosing spondylitis at [place] in late , currently quiet, GERD, Possible peripheral neuropathy, Hypothyroidism, Multiple myeloma ISS stage II, Normal creatinine with proteinuria 2.2 g/24 hours December 2016, Impaired fasting glucose. A1c 6.3 in 2017, Hyperlipidemia, Hypertension, allergic to Trazodone. and former smoker who presented to the ER @ [facility] complaining of unsteady gait and unable to walk due to significant pain all over his body and failure to thrive. He mentioned that this pain and weakness got worse few days ago but he denies any dysarthria or dysphagia. He lives alone at home and he would like to have some rehab before he goes home. Patient denies chest pain, fever, chills, shortness of breath. Patient c/o total body ache. He complains of pain with movement of any of his joints. He has chronic stasis dermatitis of his lower extremities. He denies any h/o CVA in the past. He was taking Lasix 40mg po bid at home and he clinically looks dehydrated with scaly skin. I discussed the case with the ER-MD and admitted the patient for further evaluation and management. 10/16: This morning patient developed resting chest pain and dyspnea. His BP was stable but he was tachycardiac. His Coreg was stopped yesterday due to change in his EKG. He has h/o AF and there was a question of heart block. He became tachy today and developed CP/SOB. His EKG did not show any acute ST changes. He had inverted T waves in his lateral leads vs early repolarization and he also had RBBB. His Troponin was 0.044 and his initial troponin was 0.026. He responded to 2 SL-NTG. At present he is doing well without any CP/SOB after starting his Coreg. His HR is in 80's. Patient Complains of: Neurological: No: Confusion, Weakness, Dizziness Cardiovascular: Chest Pain, No: Palpitations Respiratory: Shortness of Breath, No: Cough, Wheezing Gastrointestinal: No Nausea, No Vomiting Genitourinary: No Dysuria, No Hematuria Musculoskeletal: No: Pain, Sprain, Strain Physical Exam Vital Signs Date Time Temp Pulse Resp B/P (MAP) Pulse Ox O2 Delivery O2 Flow Rate FiO2 10/16/17 11:55 69 10/16/17 11:41 97.9 14 123/61 (81) 96 Nasal Cannula 3.0 Intake and Output 10/17/17 06:59 Intake Total 789 ml Output Total 600 ml Balance 189 ml Intake Oral 789 ml Output Urine Total 600 ml # Bowel Movements 1 General Appearance: Alert, Awake, No Acute Distress, Afebrile Neuro: No Gross deficits Eyes: PERRLA ENT: Normal Cardiovascular: No Edema, No JVD, Other (Irregular heart beats.) Respiratory: No Respiratory Distress, Clear to Auscultation GI: Soft and Non-Tender : Normal Extremities: Soft and Non Tender Integumentary: Scaly / Dry Skin Psych: Alert & Oriented X3, Appropriate Mood & Affect Result Diagram: 10/16/17 0534 10/16/17 0534 Assessment and Plan Problems: (1) Chest pain Status: Acute Assessment & Plan: Most likely chest pain due to tachycardia after holding Coreg and responded to NTG. His EKG without any ST elevation but ischemic changes with troponin 0.044. He became asymptomatic after starting Coreg and use of NTG. I will repeat another Troponin later. I will continue present management BMP and CBC in am (2) Weakness generalized Status: Acute Assessment & Plan: He did present with weakness to the point where he was unable to get off the floor. His symptoms are now mostly resolved after receiving IV fluids and one dose of steroids. An ESR is negative this morning. Physical and occupational therapy consults are pending. 10/16: His weakness has improved and no sign of any infection. will continue PT. 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 he mentioned that WBC usually fluctuates. (3) Atrial flutter Status: Chronic Assessment & Plan: He does have a history of atrial flutter and is on chronic treatment with Eliquis. His EKG's currently show what appears to be a third degree block vs atypical flutter. These were reviewed with cardiology and were felt to be more consistent with flutter. We will keep him on telemetry overnight and repeat a troponin. 10/16: He developed CP/SOB today and EKG with possible lateral ischemia but troponin was negative. He has h/o A.Flutter and he is on Eliquis and Coreg. (4) Acute kidney injury Status: Acute Assessment & Plan: He has improved with IV fluids. Repeat labs are ordered for the morning. 10/16: He was on IVF and was stopped. I will restart IVF at 50ml/h and check his BMP in am (5) PVD (peripheral vascular disease) Status: Chronic Assessment & Plan: He has had multiple stents placed in the past and he is on Eliquis now. (6) Pulmonary hypertension Status: Chronic Assessment & Plan: He is currently taking Adempas 1.5mg po tid and he is stable (7) Monoclonal gammopathies Status: Chronic Assessment & Plan: stable Condition guarded Time Spent on Plan of Care: > 30 min Copies to: DARON NAYAK MD; ELIS VALLE MD Heart Failure Ejection Fraction %: 60 RVSP (mmHg): 82 NYHA Class: II Is Patient on MAHI Inhibitor?: No Is Patient on Beta Jigar?: Yes Exam Sepsis Risk: Sepsis Risk Problem Qualifiers (1) Chest pain: Chest pain type: chest pain due to myocardial ischemia MAGALI MILTON MD October 16, 2017 15:33
[2017-10-16 16:09] VITALS: BP 133/71
[2017-10-16] MEDS ORDERED: ASPIRIN 81 MG CHEW PO ONE (18:20)
--- NOTE | 2017-10-16 18:28 | Hospitalist Depart ---
Discharge Summary Reason for Hosp/Final Diag: (1) Chest pain Status: Acute Hospital Course & Plan: is a 76-year-old male with an extensive past medical history of Chronic venous insufficiency with edema, Congestive heart failure, Coronary artery disease status post stent in 2007, Peripheral vascular disease status post PTCA, November 2014, November 2015, January 2016, January 2017, Pulmonary hypertension diagnosed in July 2015, Right heart catheterization in December 2016 showed pressure 90/35 with a mean of 52, History of recurrent lower extremity DVT, pulmonary embolism once, on lifelong anticoagulation, Possible COPD, on home oxygen at night, Granulomatous lung disease, Paroxysmal atrial fibrillation, Chronic anxiety, HLA-B27 positive diagnosed with ankylosing spondylitis at [place] in late , currently quiet, GERD, Possible peripheral neuropathy, Hypothyroidism, Multiple myeloma ISS stage II, Normal creatinine with proteinuria 2.2 g/24 hours December 2016, Impaired fasting glucose. A1c 6.3 in 2017, Hyperlipidemia, Hypertension, allergic to Trazodone. and former smoker who presented to the ER @ [facility] complaining of unsteady gait and unable to walk due to significant pain all over his body and failure to thrive. He mentioned that this pain and weakness got worse few days ago but he denies any dysarthria or dysphagia. He lives alone at home and he would like to have some rehab before he goes home. Patient denies chest pain, fever, chills, shortness of breath. Patient c/o total body ache. He complains of pain with movement of any of his joints. He has chronic stasis dermatitis of his lower extremities. He denies any h/o CVA in the past. He was taking Lasix 40mg po bid at home and he clinically looks dehydrated with scaly skin. I discussed the case with the ER-MD and admitted the patient for further evaluation and management. 10/16: This morning patient developed resting chest pain and dyspnea. His BP was stable but he was tachycardiac. His Coreg was stopped yesterday due to change in his EKG. He has h/o AF and there was a question of heart block. He became tachy today and developed CP/SOB. His EKG did not show any acute ST changes. He had inverted T waves in his inferiolateral leads vs early repolarization and he also had RBBB. His Troponin was 0.044 and his initial troponin was 0.026. He responded to 2 SL-NTG. At present he is doing well without any CP/SOB after starting his Coreg. His HR is in 80's. Most likely chest pain due to tachycardia after holding Coreg and responded to NTG. His EKG without any ST elevation but ischemic changes with troponin 0.044. He became asymptomatic after starting Coreg and use of NTG. His repeat Troponin came back positive 0.23. I gave him an 81mg Aspirin and called [employer] set up operator and discussed the case with and he accepted the case and I also discussed the case with Dr. Gayle the hospitalist and he will admit the patient. I have explained the current condition to the patient and he understood well. He is afebrile, hemodynamically stable without any active c/o CP/Dyspnea at present. He is stable to transfer to [facility] for further evaluation and management. (2) Weakness generalized Status: Acute Hospital Course & Plan: He did present with weakness to the point where he was unable to get off the floor. His symptoms are now mostly resolved after receiving IV fluids and one dose of steroids. An ESR is negative this morning. Physical and occupational therapy consults are pending. 10/16: His weakness has improved and no sign of any infection. will continue PT. 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 he mentioned that WBC usually fluctuates. (3) Atrial flutter Status: Chronic Hospital Course & Plan: He does have a history of atrial flutter and is on chronic treatment with Eliquis. His EKG's currently show what appears to be a third degree block vs atypical flutter. These were reviewed with cardiology and were felt to be more consistent with flutter. We will keep him on telemetry overnight and repeat a troponin. 10/16: He developed CP/SOB today and EKG with possible lateral ischemia but troponin was negative. He has h/o A.Flutter and he is on Eliquis and Coreg. (4) Acute kidney injury Status: Acute Hospital Course & Plan: He has improved with IV fluids. Repeat labs are ordered for the morning. 10/16: He was on IVF and was stopped. I will restart IVF at 50ml/h and check his BMP in am (5) PVD (peripheral vascular disease) Status: Chronic Hospital Course & Plan: He has had multiple stents placed in the past and he is on Eliquis now. (6) Pulmonary hypertension Status: Chronic Hospital Course & Plan: He is currently taking Adempas 1.5mg po tid and he is stable (7) Monoclonal gammopathies Status: Chronic Hospital Course & Plan: stable Departure Weight (Pounds): 146 Weight (Ounces): 5.0 Result Diagram: 10/16/17 0534 10/16/17 1622 Condition: No Change Discharge: Another Hospital Home Health RN Follow Up For: Cardiac Assessment Time Spent: > 30 min Discharge Instructions Home Meds Active Scripts Pregabalin (LYRICA) 150 Mg Capsule, 150 MG PO BID, #60 CAPSULE 5 Refills Prov:ELIS VALLE MD 08/13/17 Clobetasol Propionate (CLOBETASOL PROPIONATE) 15 Gm Oint...g., 1 BRANDAN TP BID for 30 Days, #1 TUBE 2 Refills Prov:VIOLETTA WASHINGTON 08/12/17 Furosemide (LASIX) 40 Mg Tablet, 1 TAB PO BID, #90 TAB Prov:ELIS VALLE MD 07/27/17 Carvedilol (CARVEDILOL) 6.25 Mg Tab, 0.5 TAB PO BID, #30 TAB 6 Refills Prov:ELIS VALLE MD 07/27/17 Rosuvastatin Calcium (CRESTOR) 40 Mg Tablet, 40 MG PO QDAY, #90 TAB 1 Refill Prov:ELIS VALLE MD 07/14/17 Finasteride (FINASTERIDE) 5 Mg Tablet, 5 MG PO QHS, #90 TAB 1 Refill Prov:ELIS VALLE MD 07/14/17 Ferrous Sulfate (FERROUS SULFATE) 325 Mg Tablet, 325 MG PO DAILY, #30 TAB 5 Refills Prov:ELIS VALLE MD 06/09/17 Levothyroxine Sodium (LEVOTHYROXINE SODIUM) 0.112 Mg Tab, 0.112 MG PO QAM, #90 TAB 3 Refills Prov:ELIS VALLE MD 06/04/17 Apixaban (ELIQUIS) 5 Mg Tablet, 5 MG PO BID, #60 TAB 3 Refills Prov:ELIS VALLE MD 03/08/17 Reported Medications Oxygen (OXYGEN) Inha, 3 L INH, L 08/07/17 Riociguat (Adempas) 1 Mg Tablet, 2.5 MG PO TID 03/23/17 Cholecalciferol (Vitamin D3) (D-2000) 2,000 Unit Capsule, 5000 UNIT PO QDAY, CAPSULE 03/23/17 Dextran 70/Hypromellose (ARTIFICIAL TEARS) 1 Each Droperette, 1 EACH OP QID 12/31/16 Discontinued Reported Medications Ranitidine Hcl (RANITIDINE HCL) 150 Mg Capsule, 150 MG PO BID, CAPSULE 07/02/17 Oxygen (OXYGEN) Inha, 2.5 L INH, L 07/13/16 Discontinued Scripts Duloxetine Hcl (CYMBALTA) 60 Mg Capsule.dr, 60 MG PO QDAY, #90 CAP 1 Refill Prov:ELIS VALLE MD 08/16/17 Triamcinolone Acetonide 0.1% Oint 15 Gm Tube (TRIAMCINOLONE ACETONIDE 0.1% 15 GM TUBE) 15 Gm Oint...g., 15 GM TP DAILY for 14 Days, #1 TUBE Prov:GIANNI LEAL JR, MD 08/10/17 Hydroxyzine Hcl (HYDROXYZINE HCL) 25 Mg Tablet, 1 TAB PO QID Y for ITCHING, #60 TAB 1 Refill Prov:ELIS VALLE MD 07/02/17 Diet: Fluid Restricted, 2 Gram Sodium (NA), Low Cholesterol & Sat Fat Activity: As Tolerated Copies to: DARON NAYAK MD; JOSE PERRY MD; ELIS VALLE MD Venous Thromboembolism Antithrombotics Is Pt On Any Antithrombotics?: No Heart Failure Ejection Fraction %: 60 RVSP (mmHg): 82 NYHA Class: II Is Patient on MAHI Inhibitor?: No Is Patient on Beta Jigar?: Yes Problem Qualifiers (1) Chest pain: Chest pain type: chest pain due to myocardial ischemia MAGALI MILTON MD October 16, 2017 18:28
== END 2017-10-16 18:55 | disposition short-term general hospital (02) | DRG 303 ==
LOC: ER 21:37 → MED 10-15 04:08
PROVIDERS: ADMIT Specialist; ATTEND Specialist
DX: I51.3 Intracardiac thrombosis, not elsewhere classified (principal); I48.92 Unspecified atrial flutter; N17.9 Acute kidney failure, unspecified; I87.2 Venous insufficiency (chronic) (peripheral); I11.0 Hypertensive heart disease with heart failure; D47.2 Monoclonal gammopathy; I73.9 Peripheral vascular disease, unspecified; I45.10 Unspecified right bundle-branch block; I27.20 Pulmonary hypertension, unspecified; I50.9 Heart failure, unspecified; I25.10 Atherosclerotic heart disease of native coronary artery without angina pectoris; J44.9 Chronic obstructive pulmonary disease, unspecified; F41.9 Anxiety disorder, unspecified; M45.9 Ankylosing spondylitis of unspecified sites in spine; K21.9 Gastro-esophageal reflux disease without esophagitis; E03.9 Hypothyroidism, unspecified; E78.5 Hyperlipidemia, unspecified; D72.829 Elevated white blood cell count, unspecified; R62.7 Adult failure to thrive; R53.1 Weakness; E86.0 Dehydration; T50.1X5A Adverse effect of loop [high-ceiling] diuretics, initial encounter; Z79.01 Long term (current) use of anticoagulants; Z88.8 Allergy status to other drugs, medicaments and biological substances; Z86.718 Personal history of other venous thrombosis and embolism; Z86.711 Personal history of pulmonary embolism; Z99.81 Dependence on supplemental oxygen; Z85.79 Personal history of other malignant neoplasms of lymphoid, hematopoietic and related tissues; Z90.49 Acquired absence of other specified parts of digestive tract; Z87.891 Personal history of nicotine dependence; Z95.5 Presence of coronary angioplasty implant and graft
CPT/HCPCS: 36415; 70470; 71045; 81001; 82040; 82247; 82310; 82374; 82435; 82550; 82565; 82947; 83605; 84075; 84132; 84155; 84295; 84450; 84460; 84484; 84520; 85025; 85651; 86140; 86430; 87040; 93005; 97161; 97165; 99285; J2270; J2930; J7030; J7040; Q9967

== ENCOUNTER → 2017-10-14 | Outpatient (CLI) | payer BC, MEDICARE ==
[~2017-10-14] MED LIST changes: +SIMV-59 PO; -SIMV-63 PO
[2017-10-15 10:13] VITALS: BMI 24.3
== END ==
LOC: AMB 21:05
PROVIDERS: ATTEND Nurse Practitioner
DX: M54.9 Dorsalgia, unspecified (principal); R26.2 Difficulty in walking, not elsewhere classified; R09.02 Hypoxemia
CPT/HCPCS: A0425; A0427

== ENCOUNTER → 2017-10-16 | Outpatient (CLI) | payer BC ==
[2017-10-15 10:13] VITALS: BMI 24.3
== END ==
LOC: AMB 18:48
PROVIDERS: ATTEND Nurse Practitioner
DX: R79.89 Other specified abnormal findings of blood chemistry (principal)
CPT/HCPCS: A0425; A0426

== ENCOUNTER 2017-10-20 11:34 | Inpatient (IN) | payer MEDICARE, BC ==
[2017-10-15 10:13] VITALS: Ht 167.6 cm; Wt 70.8 kg
[~2017-10-20] VITALS: Ht 167.6 cm; Wt 70.8 kg
[2017-10-20 10:40] VITALS: BP 127/60
--- NOTE | 2017-10-20 12:38 | ECF H&P BLANK ---
ECF H&P UPDATE History of Present Illness Chief Complaint Unable to walk History of Present Illness is a 76-year-old male with an extensive past medical history of Chronic venous insufficiency with edema, Congestive heart failure, Coronary artery disease status post stent in 2007, Peripheral vascular disease status post PTCA, November 2014, November 2015, January 2016, January 2017, Pulmonary hypertension diagnosed in July 2015, Right heart catheterization in December 2016 showed pressure 90/35 with a mean of 52, History of recurrent lower extremity DVT, pulmonary embolism once, on lifelong anticoagulation, Possible COPD, on home oxygen at night, Granulomatous lung disease, Paroxysmal atrial fibrillation, Chronic anxiety, HLA-B27 positive diagnosed with ankylosing spondylitis at [place] in late , currently quiet, GERD, Possible peripheral neuropathy, Hypothyroidism, Multiple myeloma ISS stage II, Normal creatinine with proteinuria 2.2 g/24 hours December 2016, Impaired fasting glucose. A1c 6.3 in 2017, Hyperlipidemia, Hypertension, allergic to Trazodone. and former smoker who presented to the ER @ [facility] complaining of unsteady gait and unable to walk due to significant pain all over his body and failure to thrive. He mentioned that this pain and weakness got worse few days ago but he denies any dysarthria or dysphagia. He lives alone at home and he would like to have some rehab before he goes home. Patient denies chest pain, fever, chills, shortness of breath. Patient c/o total body ache. He complains of pain with movement of any of his joints. He has chronic stasis dermatitis of his lower extremities. He denies any h/o CVA in the past. He was taking Lasix 40mg po bid at home and he clinically looks dehydrated with scaly skin. I discussed the case with the ER-MD and admitted the patient for further evaluation and management. 10/16: This morning ON 10/16 patient developed resting chest pain and dyspnea. His BP was stable but he was tachycardiac. His Coreg was stopped yesterday due to change in his EKG. He has h/o AF and there was a question of heart block. He became tachy today and developed CP/SOB. His EKG did not show any acute ST changes. He had inverted T waves in his inferiolateral leads vs early repolarization and he also had RBBB. His Troponin was 0.044 and his initial troponin was 0.026. He responded to 2 SL-NTG. At present he is doing well without any CP/SOB after starting his Coreg. His HR is in 80's. Most likely chest pain due to tachycardia after holding Coreg and responded to NTG. His EKG without any ST elevation but ischemic changes with troponin 0.044. He became asymptomatic after starting Coreg and use of NTG. His repeat Troponin came back positive 0.23. I gave him an 81mg Aspirin and called [place] [employer] [facility] [employer] and discussed the case with and he accepted the case and I also discussed the case with Dr. Gayle the hospitalist and he will admit the patient. I have explained the current condition to the patient and he understood well. He is afebrile, hemodynamically stable without any active c/o CP/Dyspnea at present. He was stable to transfer to [facility] for further evaluation and management. 10/20: Today patient came back from [facility] after the management of his STEMI. He was seen by a large engine assembler and treated him medically. He was a high risk for cardiac cath. He was placed on Plavix 75mg po qd and stopped his ASA. He also takes Eliquis for his PVD. His WBC went up to 20K and he was also treated for L-ankle cellulitis with Vancomycin and Zosyn for 2-3 days and then put him on Doxycycline 100mg po bid. He is currently on Doxy. After stabilizing the patient, he was transferred to [facility] for further therapy and rehabilitation. History Home Meds Active Scripts Duloxetine Hcl (CYMBALTA) 60 Mg Capsule.dr, 60 MG PO QDAY, #90 CAP 1 Refill Prov:ELIS VALLE MD 08/16/17 Pregabalin (LYRICA) 150 Mg Capsule, 150 MG PO BID, #60 CAPSULE 5 Refills Prov:ELIS VALLE MD 08/13/17 Clobetasol Propionate (CLOBETASOL PROPIONATE) 15 Gm Oint...g., 1 BRANDAN TP BID for 30 Days, #1 TUBE 2 Refills Prov:VIOLETTA WASHINGTON 08/12/17 Triamcinolone Acetonide 0.1% Oint 15 Gm Tube (TRIAMCINOLONE ACETONIDE 0.1% 15 GM TUBE) 15 Gm Oint...g., 15 GM TP DAILY for 14 Days, #1 TUBE Prov:GIANNI LELA JR, MD 08/10/17 Furosemide (LASIX) 40 Mg Tablet, 1 TAB PO BID, #90 TAB Prov:ELIS VALLE MD 07/27/17 Carvedilol (CARVEDILOL) 6.25 Mg Tab, 0.5 TAB PO BID, #30 TAB 6 Refills Prov:ELIS VALLE MD 07/27/17 Rosuvastatin Calcium (CRESTOR) 40 Mg Tablet, 40 MG PO QDAY, #90 TAB 1 Refill Prov:ELIS VALLE MD 07/14/17 Finasteride (FINASTERIDE) 5 Mg Tablet, 5 MG PO QHS, #90 TAB 1 Refill Prov:ELIS VALLE MD 07/14/17 Hydroxyzine Hcl (HYDROXYZINE HCL) 25 Mg Tablet, 1 TAB PO QID Y for ITCHING, #60 TAB 1 Refill Prov:LEIS VALLE MD 07/02/17 Ferrous Sulfate (FERROUS SULFATE) 325 Mg Tablet, 325 MG PO DAILY, #30 TAB 5 Refills Prov:ELIS VALLE MD 06/09/17 Levothyroxine Sodium (LEVOTHYROXINE SODIUM) 0.112 Mg Tab, 0.112 MG PO QAM, #90 TAB 3 Refills Prov:ELIS VALLE MD 06/04/17 Apixaban (ELIQUIS) 5 Mg Tablet, 5 MG PO BID, #60 TAB 3 Refills Prov:ELIS VALLE MD 03/08/17 Reported Medications Oxygen (OXYGEN) Inha, 4 L INH, L 08/07/17 Ranitidine Hcl (RANITIDINE HCL) 150 Mg Capsule, 150 MG PO BID, CAPSULE 07/02/17 Riociguat (Adempas) 1 Mg Tablet, 1.5 MG PO TID 03/23/17 Cholecalciferol (Vitamin D3) (D-2000) 2,000 Unit Capsule, 2000 UNIT PO QDAY, CAPSULE 03/23/17 Dextran 70/Hypromellose (ARTIFICIAL TEARS) 1 Each Droperette, 1 EACH OP QID 12/31/16 Oxygen (OXYGEN) Inha, 2.5 L INH, L 07/13/16 Allergies: Coded Allergies: trazodone (Verified Allergy, Intermediate, 10/14/17) Patient History: Cerebral hemorrhage FATHER, , Age:47 FH polycystic kidney FATHER, , Age:47 FH: cancer MOTHER, , Age:64 FH: hypertension FATHER, , Age:47 Hx Smoking: Yes Smoking Status: Former Smoker Exposure to Second Hand Smoke?: No Caffeine Intake: Coffee Caffeine/Cups Per Day: 1 Hx Alcohol Use: Yes (1-2 per week) Hx Substance Use Disorder: No Social Drug Use: Never Review of Systems Constitutional: Fever, Weight Loss, No Weight Gain, No Chills Neurological: Weakness, No Dizziness Cardiovascular: No Chest Pain, No Palpitations Respiratory: No Shortness of Breath, No Cough, No Wheezing Gastrointestinal: Nausea, No Vomiting, No Diarrhea, No Dysphagia, No Constipation, No Early Satiety, No Hematemesis, No Hematochezia, No Melena, No Abdominal Pain, No Other Genitourinary: No Dysuria, No Hematuria, No Urinary Incontinence Musculoskeletal: Pain, Impaired Mobility, No Sprain, No Strain, No Other Psychiatric: No Depression, No Anxiety Exam Vital Signs Vital Signs Date Time Temp Pulse Resp B/P (MAP) Pulse Ox O2 Delivery O2 Flow Rate FiO2 10/15/17 04:30 95 Blow-by 5.0 10/15/17 04:30 97.1 69 16 115/71 (86) General Appearance: Alert, Awake, No Acute Distress, Afebrile Neuro: No Gross deficits Eyes: PERRLA ENT: Normal Neck: No Masses Cardiovascular: Normal Rhythm & Peripheral Pulses, No Edema, No JVD Respiratory: No Respiratory Distress GI: Abd Soft and Non-Tender : Normal Musculoskeletal: Other (weak LUE and decrease L-hand cake wringer) Extremities: Other (tender LE ) Integumentary: Generalized Fragile Skin, Scaly / Dry Skin Psych: Alert & Oriented X3, Appropriate Mood & Affect Medical Decision Making Data Points Result Diagram: 10/14/17211310/14/172113 His current Lab. results on 10/19: BUN/Cr=35/1.1 down from 61/1.3, His WBC9.32 down from 20.47 Pre-Admit Course ED Medications reviewed Medical Record Review: Yes Assessment and Plan Problems: (1) Weakness generalized Status: Subacute Assessment & Plan: I will admit the patient to the ECF floor for further evaluation and management for generalized weakness and failure to thrive. He is clinically dehydrated possibly due to taking Lasix 40mg. I will encourage oral hydration I will repeat his BMP in am I will get PT/OT consult for therapy I will get social media marketing analyst intervention. I will use [place] 5/325 mg PO q6h as needed for pain I will also use Zofran 4mg IV for his nausea I will start Protonix for his GERD/GIP For DVTP he is on Eliquis (2) Acute on CKD Status: Acute Assessment & Plan: He was taking Lasix 40mg and presented with high BUN/Cr 61/ 1.3 I will encourage oral hydration I will repeat his BMP in am I will get PT consult for therapy I will use his Lasix as needed (3) PVD (peripheral vascular disease) Status: Chronic Assessment & Plan: He has had multiple stents placed in the past and he is on Eliquis and Plavix now, will continue (4) Pulmonary hypertension Status: Chronic Assessment & Plan: He is currently taking Adempas 1.5mg po tid and he is stable (5) Monoclonal gammopathies Status: Chronic Assessment & Plan: stable 6. L-ankle Cellulitis: He developed mild L-ankle cellulitis during his stay at [facility]. He was treated with Vanco and Zozyn for 2 days and was d/c'd on Doxycycline 100mg po bid. His WBC dropped from 20K to 9K and he is currently feeling better and I will continue his current management Condition Guarded Time Spent on Plan of Care: > 30 min Copies to: ELIS VALLE MD Venous Thromboembolism VTE Risk Physician Assess for VTE Risk: Yes Patient's VTE Risk: Low VTE Diagnostic Test 2 Days Prior to Admit: No Antithrombotics Is Pt On Any Antithrombotics?: No Heart Failure Ejection Fraction %: 60 RVSP (mmHg): 82 NYHA Class: II Is Patient on MAHI Inhibitor?: No Is Patient on Beta Jigar?: Yes Exam Sepsis Risk: No Definite Risk MAGALI MILTON MD October 15, 2017 06:14 <Electronically signed by MAGALI MILTON MD> D/ 0 3 3 JORDANA/ORLY CC: ELIS VALLE MD Copies to: ELIS VALLE MD Central Line Progress Note Central Line Progress Note MAGALI MILTON MD October 20, 2017 12:09 Copies to: ELIS VALLE MD, HAMID A MD October 20, 2017 12:38
[2017-10-20] MEDS ORDERED: ONDANSETRON 4 MG TAB PO PRN (12:40)
--- NOTE | 2017-10-20 13:09 | Consultant Pharmacy Review ---
Client Architect Review Medication Review Do All Mecications have a Diag: Yes Beers Criteria Medication 2014 Non-BZD Hypnotics: Zolpidem (5 MG HS PRN SLEEP..FALL RISK) Proton Pump Inhibitors: Pantoprazole (REFLUX..MAY INCREASE FRACTURE RISK.) Pneumococcal Vaccine HX Pneumo Vac ([id number]): Yes (UNKNOWN YR) HX Pneumo Vac (Pneumovax): No SIERRA MACK October 20, 2017 13:09
[2017-10-20] MEDS ORDERED: PATIENT'S OWN MED PO SCH (14:00)
[2017-10-20] MEDS: RIOCIGUAT 2.5 MG PO SCH ×2 (14:02→20:21)
[2017-10-20] MEDS ORDERED: FURO40TA35 PO (14:15)
--- NOTE | 2017-10-20 15:25 | OT ECF NOTE ---
Type of Note: Initial Note Primary Medical Diagnosis: Generalized weakness Occupational Therapy Evaluation Date: 10/20/17 SUBJECTIVE: Prior Hospitalization: [facility] 10/15/17 thru 10/16/17. [facility] 10/16/17 thru 10/20/17 Prior Level of Function: Independent with ADLs and IADLs. HomeInstead 1x/ week for assist with any needs Prior Living Status: Bi-level house, Alone Community Services: Home Accessibility: Stairs with rails, Walk-in shower Equipment Owned: [employer]. No other equipment. Medical Complications/Past Medical History: Please refer to EMR Psychosocial Support: Limited psychosocial report Pain Scale (0-10): None reported at time of evaluation OBJECTIVE: Strength: MMT: Right Left Shoulder Flexion WFL WFL Elbow Flexion WFL WFL Wrist Extension WFL WFL Bandmill Operator WFL WFL (5= normal, 4= good, 3= fair, 2= poor, 1= trace) ROM: Both upper extremities, WFL Sensation: Neuropathy in B LE Functional Transfer: Assistive Device: Front wheeled walker, Gait belt Transfer Ability: Verbal cues ADL: Upper body dressing: Assistive device: None Upper body dressing ability: Independent Lower body dressing: Assistive device: May benefit from LB AE education Lower body dressing ability: Minimum assistance Toileting: Assistive device: None Toileting ability: SBA Grooming/hygiene: Assistive device: Grooming ability: N/T Bathing: Assistive device: Bathing ability: N/T Standardized Assessment: Stacie Index of Activities of Daily Livin20 upon initial evaluation (). ASSESSMENT: Meño presents to [facility] s/p recent hospital admission. He presents with decreased activity tolerance for engagement in ADLs/IADLs. At [facility], he was (I) with ADLs/IADLs with occasional assist for IADLs. He will benefit from skilled OT services to optimize (I) with ADLs and improve activity tolerance and safety for IADLs. Problem List/Current Limitations: Pain Decreased activity tolerance Generalized weakness Short Term Goals: 1) Pt will be Mod (I) UB/LB dressing. 2) Pt will be Independent grooming/hygiene. 3) Pt will demonstrate good endurance for independent standing shower task. 4) Pt will be Independent toileting. 5) Pt Stacie Index of ADLs will increase by 2 points. 6) Pt will be educated on appropriate energy conservation and adaptive methods for ADLs/IADLs. Snf Goals: Return home with possible outpatient PT Patient Goals: "Get rid of the burning in my feet" Rehabilitation Prognosis: Good Barriers to Discharge: Medical hx, adherence to recommendations and education PLAN: The patient will benefit from skilled occupational therapy services 5 times per week for 2 weeks including: Ther ex ADL training Safety training Ther act IADL training Transfer training Adaptive equip training Bed mobility Energy conservation Thank you for this referral. If you have any questions, concerns, or comments about this report or plan, please contact me at . Mary Godinez MS, OTR/L Occupational Therapist DAVID
--- NOTE | 2017-10-20 15:42 | PT ECF NOTE ---
Type of Note: Initial Note Primary Medical Diagnosis: Generalized weakness, Acute on CKD, see EMR for details from [facility] Physical Therapy Evaluation Date: 10/20/17 SUBJECTIVE: Prior Hospitalization: [facility] 10/15/17-10/16/17, [facility] 10/16/17-10/20/17 Prior Level of Function: Jacy with occasional use of SPC, pt reports history of falls Prior Living Status: Bi-level house, Alone Community Services: Previous use of [facility] services Home Accessibility: One step to enter home, flight of stairs to access second story Equipment Owned: Josr Medical Complications/Past Medical History: Complex, see EMR for details Psychosocial Support: None mentioned by patient Pain Scale (0-10): 0/10 OBJECTIVE: Strength: Right Lower Extremity: DF: 4/5 Knee flexion: 4/5 Knee extension: 4/5 Hip flexion: 3+/5 Left Lower Extremity: DF: 4/5 Knee flexion: 4/5 Knee extension: 3+/5 Hip flexion: 3+/5 ROM: WFL Sensation: diminished light touch sensation to B) distal LEs Other Neuro findings: None noted Bed Mobility: SBA with HOB elevated and use of bed rail Transfers: SBA with RW Gait: SBA x 250' with RW Stairs: NT 10 meter walk test (0.6m/second cannot function independently): 0.62 m/sec ASSESSMENT: Pt demonstrates an increased need of assistance from others as well decreased tolerance to functional mobility. He ambulates with a gait speed on 0.62 m/sec indicating that he is minimal community ambulator and at an increased risk of falls. He will benefit from skilled PT services in order to increase independence with functional tasks to allow for safest discharge home alone. Problem List/Current Limitations: Decreased activity jany Decreased strength Decreased balance Generalized weakness Short Term Goals: 1: Pt to complete bed mobility with Jacy and HOB flat with no use of bed rail 2: Pt to complete transfers with Jacy and least restrictive AD from a variety of surfaces. 3: Pt to ambulate 600' with Jacy and least restrictive AD 4: Pt to asc/desc flight of stairs with Jacy 5: Pt to demonstrate good safety with O2 tubing management without verbal cues for safety 6: Pt to increase gait speed to 0.8 m/sec to indicate improve in function Prison Goals: Pt to d/c home with decreased risk of falls Patient Goals: Pt would like to strengthen LEs in order to effectively carry groceries up stairs. Rehabilitation Prognosis: Good Barriers for Discharge: None at this time PLAN: The patient will benefit from skilled physical therapy services 5 times per week for 2 weeks including: Therapeutic Exercise Therapeutic Activities Transfer Training Gait Training Stair Training Manual Therapy Safety Training Neuromuscular Re-educ. Pt/Caregiver Training Bed Mobility Thank you for this referral. If you have any questions, concerns, or comments about this report or plan, please contact me at . Belem Talbert, PT, DPT MTDD
[2017-10-20 15:50] VITALS: BP 134/70
[2017-10-20] MEDS: CARVEDILOL 3.125 MG TAB PO SCH (20:21)
[2017-10-20] MEDS: ROSUVASTATIN CALCIUM 10 MG TAB PO SCH (20:22)
[2017-10-20] MEDS: DOCUSATE SODIUM 100 MG CAP PO SCH (20:22)
[2017-10-20] MEDS: PREGABALIN 50 MG CAP PO SCH (20:22)
[2017-10-20] MEDS: APIXABAN 2.5 MG TABLET PO SCH (20:22)
[2017-10-20] MEDS: DOXYCYCLINE HYCL 100 MG TAB PO SCH (20:23)
[2017-10-20] MEDS: APAP/HYDROCODONE 325/5 TAB PO PRN (23:32)
[2017-10-20] MEDS: ZOLPIDEM TARTRATE 5 MG TAB PO PRN (23:35)
[2017-10-21] MEDS: LEVOTHYROXINE SOD 0.112 MG TAB PO SCH (05:24)
[2017-10-21] MEDS: APAP/HYDROCODONE 325/5 TAB PO PRN ×3 (05:38→19:32)
[2017-10-21 06:21] LABS: PLATELET COUNT, AUTOMATED 322 K/uL (150-450)
[2017-10-21 07:45] VITALS: BP 128/62
[2017-10-21] MEDS: DOCUSATE SODIUM 100 MG CAP PO SCH ×2 (09:00→20:33)
[2017-10-21] MEDS: CARVEDILOL 3.125 MG TAB PO SCH ×2 (09:06→20:33)
[2017-10-21] MEDS: RIOCIGUAT 2.5 MG PO SCH ×3 (09:06→20:32)
[2017-10-21] MEDS: PREGABALIN 50 MG CAP PO SCH ×2 (09:06→20:33)
[2017-10-21] MEDS: CLOPIDOGREL BISULFATE 75MG TAB PO SCH (09:07)
[2017-10-21] MEDS: APIXABAN 2.5 MG TABLET PO SCH ×2 (09:08→20:33)
[2017-10-21] MEDS: DOXYCYCLINE HYCL 100 MG TAB PO SCH ×2 (09:08→20:32)
[2017-10-21] MEDS: FERROUS SULFATE 325 MG TAB PO SCH (12:37)
[2017-10-21 17:32] VITALS: BP 127/62
[2017-10-21] MEDS: ROSUVASTATIN CALCIUM 10 MG TAB PO SCH (20:33)
[2017-10-21] MEDS: FINASTERIDE 5 MG TAB PO SCH (20:33)
[2017-10-22] MEDS: ALPRAZolam 0.5 MG TAB PO PRN (00:36)
[2017-10-22] MEDS: APAP/HYDROCODONE 325/5 TAB PO PRN ×3 (02:08→15:18)
[2017-10-22] MEDS: LEVOTHYROXINE SOD 0.112 MG TAB PO SCH (05:30)
[2017-10-22 08:30] VITALS: BP 183/66
[2017-10-22] MEDS: RIOCIGUAT 2.5 MG PO SCH ×3 (09:00→20:20)
[2017-10-22] MEDS: CARVEDILOL 3.125 MG TAB PO SCH ×2 (09:13→20:21)
[2017-10-22] MEDS: PREGABALIN 50 MG CAP PO SCH ×2 (09:14→20:21)
[2017-10-22] MEDS: DOXYCYCLINE HYCL 100 MG TAB PO SCH ×2 (09:14→20:20)
[2017-10-22] MEDS: CLOPIDOGREL BISULFATE 75MG TAB PO SCH (09:14)
[2017-10-22] MEDS: DOCUSATE SODIUM 100 MG CAP PO SCH ×2 (09:14→20:21)
[2017-10-22] MEDS: APIXABAN 2.5 MG TABLET PO SCH ×2 (09:14→20:21)
--- NOTE | 2017-10-22 10:40 | Medical Nutrition Therapy ---
Nutrition Anthropometrics Height (Inches): 66.00 Height (Calculated Centimeters: 167.682593 Weight (Pounds): 148 Weight (Calculated Kilograms): 67.132 BMI Calculated: 24.29 Christiano Nutrition Score: Probably Inadequate Christiano Nutrition Risk Score: 17 Dietary Referral Nutrition Risk Factors: Nutrition Risk Comment: Physical Findings Physical Appearance: BMI 23.9 Skin Appearance Skin Appearance: Edema Edema Location Modifier: Both Edema Location: Lower Extremity Type of Edema: Degree of Edema: Gastrointestinal Symptoms GI Symtoms: Tube Present: Bowel Sounds: Recent Bowel Pattern: Stool Characteristics: Nutritional Diagnosis Nutritional Risk Acuity 2: CHF w/Complication, Chronic Renal Failure Nutritional Risk Acuity 3: GERD Nutritional Risk Acuity 4: Good Appetite Past Medical History: Pulmonary embolism, GERD, CHF, dyslipidemia, weakness, DVT, Acute renal failure Nutritional Acuity: 2-Moderate Nutrition Diagnosis: Inadequate Fluid Intake Nutrition Etiology: Physiological Causes Nutrition Problem/Etiology/Sym: Inadequate fluid intake related to physiological causes AEB clinical indications of dehyradtion and 0 ml oral intake documented. Energy Requirement: 1743 ([place] [address] 1341 X Af 1.3 = 1743kcal/day) Adjusted Energy Requirement Re: 67 (1g/kg 1 X 67.132) Fluid Requirement: 1675 (> 75 yrs 25ml/kg 25X67.132) Diet Type: Diet as Tolerated CABRERA/REG Nutrition Intervention: Cont diet as ordered, Encourage intake, Change diet ( CHF diet ) Nutrition Monitoring & Eval Nutrition Goals: Eat 75-100% Meal RD Patient Assessment Time: [address] Assessment Type: RD Screen Patient Nutrition Acuity: 2-Moderate Follow Up Date: October 25, 2017 Nutritional Comment: 10/21 Pt was admitted for weakness with an extensive past medical history of Chronic venous insufficiency with edema, CHF and CAD. Pt states his whole body aches and had chest pain (10/16). Yesterday pt was sent to [place] for medical observations. states that pt is at risk for cardiac catheter. Pt is on CABRERA/REG diet with oral intake of 100%. However, pt may benefit from CHF diet due his medical history. Notable labs indicate elevated BUN 26. Continue to monitor pt and encourage intake. PR MARSHAL BONILLA October 21, 2017 10:45
[2017-10-22] MEDS: FERROUS SULFATE 325 MG TAB PO SCH (12:15)
[2017-10-22 15:05] VITALS: BP 118/64
[2017-10-22] MEDS: ROSUVASTATIN CALCIUM 10 MG TAB PO SCH (20:21)
[2017-10-22] MEDS: FINASTERIDE 5 MG TAB PO SCH (20:21)
[2017-10-23] MEDS: ALPRAZolam 0.5 MG TAB PO PRN (00:30)
[2017-10-23] MEDS: APAP/HYDROCODONE 325/5 TAB PO PRN ×2 (01:26→15:53)
[2017-10-23] MEDS: LEVOTHYROXINE SOD 0.112 MG TAB PO SCH (05:35)
[2017-10-23 08:15] VITALS: BP 141/60
[2017-10-23] MEDS: APIXABAN 2.5 MG TABLET PO SCH ×2 (08:52→20:32)
[2017-10-23] MEDS: CLOPIDOGREL BISULFATE 75MG TAB PO SCH (08:52)
[2017-10-23] MEDS: DOXYCYCLINE HYCL 100 MG TAB PO SCH ×2 (08:52→20:32)
[2017-10-23] MEDS: DOCUSATE SODIUM 100 MG CAP PO SCH ×2 (08:52→20:32)
[2017-10-23] MEDS: CARVEDILOL 3.125 MG TAB PO SCH ×2 (08:52→20:33)
[2017-10-23] MEDS: RIOCIGUAT 2.5 MG PO SCH ×3 (08:52→20:32)
[2017-10-23] MEDS: PREGABALIN 50 MG CAP PO SCH ×2 (08:52→20:32)
[2017-10-23] MEDS: FERROUS SULFATE 325 MG TAB PO SCH (12:44)
[2017-10-23 15:48] VITALS: BP 109/54
[2017-10-23] MEDS: FINASTERIDE 5 MG TAB PO SCH (20:32)
[2017-10-23] MEDS: ROSUVASTATIN CALCIUM 10 MG TAB PO SCH (20:32)
[2017-10-24] MEDS: APAP/HYDROCODONE 325/5 TAB PO PRN ×2 (01:33→20:22)
[2017-10-24] MEDS: ALPRAZolam 0.5 MG TAB PO PRN (01:33)
[2017-10-24] MEDS: LEVOTHYROXINE SOD 0.112 MG TAB PO SCH (06:27)
[2017-10-24 07:40] VITALS: BP 124/62
[2017-10-24] MEDS: CARVEDILOL 3.125 MG TAB PO SCH ×2 (08:32→20:21)
[2017-10-24] MEDS: DOCUSATE SODIUM 100 MG CAP PO SCH ×3 (08:32→20:25)
[2017-10-24] MEDS: RIOCIGUAT 2.5 MG PO SCH ×3 (08:32→20:21)
[2017-10-24] MEDS: PREGABALIN 50 MG CAP PO SCH ×2 (08:33→20:22)
[2017-10-24] MEDS: APIXABAN 2.5 MG TABLET PO SCH ×2 (08:33→20:22)
[2017-10-24] MEDS: DOXYCYCLINE HYCL 100 MG TAB PO SCH ×2 (08:34→20:21)
[2017-10-24] MEDS: CLOPIDOGREL BISULFATE 75MG TAB PO SCH (08:34)
[2017-10-24] MEDS: FERROUS SULFATE 325 MG TAB PO SCH (12:41)
[2017-10-24 15:10] VITALS: BP 125/69
[2017-10-24] MEDS: FINASTERIDE 5 MG TAB PO SCH (20:21)
[2017-10-24] MEDS: ROSUVASTATIN CALCIUM 10 MG TAB PO SCH (20:22)
[2017-10-25] MEDS: LEVOTHYROXINE SOD 0.112 MG TAB PO SCH (05:36)
[2017-10-25 07:40] VITALS: BP 118/59
--- NOTE | 2017-10-25 08:29 | Medical Nutrition Therapy ---
Nutrition Anthropometrics Height (Inches): 66.00 Height (Calculated Centimeters: 167.898890 Weight (Pounds): 148 Weight (Calculated Kilograms): 67.132 BMI Calculated: 24.29 Christiano Nutrition Score: Probably Inadequate Christiano Nutrition Risk Score: 17 Dietary Referral Nutrition Risk Factors: Nutrition Risk Comment: Physical Findings Physical Appearance: BMI 23.9 Skin Appearance Skin Appearance: Edema Edema Location Modifier: Left Edema Location: Arm Type of Edema: Degree of Edema: 1+ Gastrointestinal Symptoms GI Symtoms: Tube Present: Bowel Sounds: Recent Bowel Pattern: Stool Characteristics: Nutritional Diagnosis Nutritional Risk Acuity 2: CHF w/Complication, Chronic Renal Failure Nutritional Risk Acuity 3: GERD Nutritional Risk Acuity 4: Good Appetite Past Medical History: Pulmonary embolism, GERD, CHF, dyslipidemia, weakness, DVT, Acute renal failure Nutritional Acuity: 2-Moderate Nutrition Diagnosis: Inadequate Food Intake Nutrition Etiology: Physiological Causes Nutrition Problem/Etiology/Sym: Increase nutrient needs realted to physiological causes AEB decrease in activity per OT note (10/20) and weakness. Energy Requirement: 1743 ([place] [address] 1341 X Af 1.3 = 1743kcal/day) Adjusted Energy Requirement Re: 67 (1g/kg 1 X 67.132) Fluid Requirement: 1675 (> 75 yrs 25ml/kg 25X67.132) Diet Type: Diet as Tolerated CABRERA/REG Nutrition Intervention: Cont diet as ordered, Encourage intake, Change diet ( CHF diet ) Food Likes: open face turkey sand with mpg on top Nutrition Monitoring & Eval Nutrition Goals: Eat 75-100% Meal RD Patient Assessment Time: [address] Assessment Type: RD Re-Assessment Patient Nutrition Acuity: 2-Moderate Follow Up Date: November 01, 2017 Nutritional Comment: 10/21 Pt was admitted for weakness with an extensive past medical history of Chronic venous insufficiency with edema, CHF and CAD. Pt states his whole body aches and had chest pain (10/16). Yesterday pt was sent to [place] for medical observations. states that pt is at risk for cardiac catheter. Pt is on CABRERA/REG diet with oral intake of 100%. However, pt may benefit from CHF diet due his medical history. Notable labs indicate elevated BUN 26. Continue to monitor pt and encourage intake. MT 10/25 Pt continues on CABRERA/REG diet with 100% oral intake. There are no concerns lab at this time. OT note (10/20) states the pt has decrease in activity and still is weak. Continue to monitor pt progress and encourage intake to help meet energy needs. MARSHAL AREVALO October 25, 2017 08:29
[2017-10-25] MEDS: APIXABAN 2.5 MG TABLET PO SCH ×2 (08:32→21:10)
[2017-10-25] MEDS: CLOPIDOGREL BISULFATE 75MG TAB PO SCH (08:32)
[2017-10-25] MEDS: RIOCIGUAT 2.5 MG PO SCH ×3 (08:32→21:10)
[2017-10-25] MEDS: DOCUSATE SODIUM 100 MG CAP PO SCH ×2 (08:32→21:00)
[2017-10-25] MEDS: CARVEDILOL 3.125 MG TAB PO SCH ×2 (08:32→21:10)
[2017-10-25] MEDS: PREGABALIN 50 MG CAP PO SCH ×2 (08:32→21:10)
[2017-10-25] MEDS: FERROUS SULFATE 325 MG TAB PO SCH (13:02)
[2017-10-25] MEDS ORDERED: FUROSEMIDE 40 MG TAB PO ONE (17:00)
--- NOTE | 2017-10-25 17:22 | SPEECH INITIAL EVALUATION ---
INITIAL SPEECH THERAPY EVALUATION REPORT Cognitive Communication Assessment Patient Name: Meño Arechiga Date of Evaluation: 10/25/2017 Patient : 1940 Clinician: Louise Godinez M.S., CCC-FOURTH GRADE TEACHER Treatment Dx: Borderline mild cognitive impairment BACKGROUND The patient is a 76 year old male admitted to [facility] w/ complaints of unsteady gait , generalized pain, weakness, and failure to thrive. Pt now presents to the extended care unit following course of hospitalization, and was referred for ST evaluation to analyze cognitive communicative status and to develop appropriate recommendations for safe discharge. LANGUAGE/COGNITION The [facility] Mental Status examination (UMS) was administered with the following results: -SLUMS Total Score (TS): 27/30 = WNL -Cognitive Domains Demonstrating Deficits: visuospatial/executive function skills (clock drawin/4), semantic fluency/thought organization (animal namin/3) -Cognitive Domains Demonstrating Strength: attention, orientation, immediate memory, delayed recall, problem solving. Functional Communication Deficits: The patient has adequate, functional cognitive/communicative skills for safe discharge to prior living environment with ongoing supports via services. SPEECH: WFL. VOICE: WFL. DYSPHAGIA: WFL. Screened w/ thins via straw. No c/o dysphagia. SUMMARY COGNITIVE / LINGUISTIC ASSESSMENT Pt achieved a 27/30 on the SLUMS assessment, which falls within normal limits for cognitive function. Informal analysis of cognitive communicative status indicated some tangential tendencies and masking behaviors. Pt was aware of ( and bothered by) mild errors made during assessment procedures. He appeared to cope with frustrations via use of humor or irrelevant remarks. When these behaviors were brought to the pts attention, he stated, I probably dont have long to live, so I might as well have some fun. Natalya always enjoyed telling stories and jokes; I have a story for everything. Skilled services do not appear to be warranted at this time. Cognitive communicative status appears at baseline and within functional limits for return to prior living environment. Please do not hesitate to contact ST with questions or concerns. Thank you for this referral. Call [phone] Louise Godinez M.S., CCC-FOURTH GRADE TEACHER [*] [facility]
[2017-10-25 21:10] VITALS: BP 124/66
[2017-10-25] MEDS: FINASTERIDE 5 MG TAB PO SCH (21:10)
[2017-10-25] MEDS: ROSUVASTATIN CALCIUM 10 MG TAB PO SCH (21:10)
[2017-10-25] MEDS: diphenhydrAMINE 25 MG CAP PO PRN (21:10)
[2017-10-25] MEDS: APAP/HYDROCODONE 325/5 TAB PO PRN (21:10)
[2017-10-26] MEDS: LEVOTHYROXINE SOD 0.112 MG TAB PO SCH (05:35)
[2017-10-26 07:05] VITALS: BP 133/66
[2017-10-26] MEDS: PREGABALIN 50 MG CAP PO SCH ×2 (08:42→20:30)
[2017-10-26] MEDS: APIXABAN 2.5 MG TABLET PO SCH ×2 (08:42→20:30)
[2017-10-26] MEDS: CLOPIDOGREL BISULFATE 75MG TAB PO SCH (08:42)
[2017-10-26] MEDS: CARVEDILOL 3.125 MG TAB PO SCH ×2 (08:43→20:30)
[2017-10-26] MEDS: DOCUSATE SODIUM 100 MG CAP PO SCH ×3 (08:43→20:34)
[2017-10-26] MEDS: RIOCIGUAT 2.5 MG PO SCH ×3 (08:43→20:29)
[2017-10-26] MEDS: FUROSEMIDE 40 MG TAB PO SCH (08:43)
[2017-10-26 13:05] VITALS: BP 113/63
[2017-10-26] MEDS: FERROUS SULFATE 325 MG TAB PO SCH (13:09)
[2017-10-26] MEDS: APAP/HYDROCODONE 325/5 TAB PO PRN (13:09)
[2017-10-26] MEDS: FINASTERIDE 5 MG TAB PO SCH (20:30)
[2017-10-26] MEDS: ROSUVASTATIN CALCIUM 10 MG TAB PO SCH (20:31)
[2017-10-27] MEDS: APAP/HYDROCODONE 325/5 TAB PO PRN ×2 (06:05→13:10)
[2017-10-27] MEDS: LEVOTHYROXINE SOD 0.112 MG TAB PO SCH (06:05)
[2017-10-27 06:26] LABS: PLATELET COUNT, AUTOMATED 301 K/uL (150-450)
[2017-10-27 08:30] VITALS: BP 120/65
[2017-10-27] MEDS: PREGABALIN 50 MG CAP PO SCH ×2 (08:43→21:07)
[2017-10-27] MEDS: APIXABAN 2.5 MG TABLET PO SCH ×2 (08:43→21:07)
[2017-10-27] MEDS: CLOPIDOGREL BISULFATE 75MG TAB PO SCH (08:44)
[2017-10-27] MEDS: FUROSEMIDE 40 MG TAB PO SCH (08:44)
[2017-10-27] MEDS: DOCUSATE SODIUM 100 MG CAP PO SCH ×2 (08:44→21:00)
[2017-10-27] MEDS: CARVEDILOL 3.125 MG TAB PO SCH ×2 (08:44→21:07)
[2017-10-27] MEDS: RIOCIGUAT 2.5 MG PO SCH ×3 (08:44→21:07)
[2017-10-27] MEDS: FERROUS SULFATE 325 MG TAB PO SCH (12:42)
--- NOTE | 2017-10-27 13:07 | Hospitalist Progress Note ---
Subjective Progress Notes Subjective The patient states overall his arthritis pain is improved. He is still having some neck pain and pain in his toes. Fever has resolved. He continues to have pruritis of his skin. This has been going on for a long time per the patient. Physical Exam Vital Signs Date Time Temp Pulse Resp B/P (MAP) Pulse Ox O2 Delivery O2 Flow Rate FiO2 10/27/17 09:00 92 Nasal Cannula 5.0 10/27/17 08:30 98.2 87 18 120/65 (83) Intake and Output 10/28/17 07:00 Intake Total 480 ml Output Total 300 ml Balance 180 ml Intake Oral 480 ml Output Urine Total 300 ml General Appearance: Alert, Awake, No Acute Distress, Other (Scratching his arms.) Neuro: No Gross deficits Eyes: PERRLA Cardiovascular: Regular Rate and Rhythm, Other (L lower extremity with trace to 1+ edema to mid avina. R lower leg with trace edema.) Respiratory: No Respiratory Distress, Other (R lung clear throughout. L lung with few fine crackles and occasional expiratory wheeze in base.) GI: Soft and Non-Tender Extremities: Warm, Pulses (Difficult to detect pulses in feet. ), Edema (See CV exam.) Integumentary: Generalized Fragile Skin, Scaly / Dry Skin Psych: Alert & Oriented X3, Appropriate Mood & Affect Result Diagram: 10/27/1754410/27/17544 Assessment and Plan Problems: (1) Generalized weakness Status: Acute Assessment & Plan: The patient's generalized weakness is multifactorial. He is improving with PT/OT. (2) IRON DEFICIENCY ANEMIA, UNSPECIFIED Status: Chronic Assessment & Plan: The patient is on iron supplements. His hemoglobin was lower today on lab work but not considerably different than what was reported during his stay at [facility]. He has not had evidence of GI blood loss. Will order stool for occult blood. VSS. Will repeat labs in am. (3) Cellulitis and abscess of left leg Status: Resolved Assessment & Plan: The patient was treated for acute cellulitis of the LLE while at [facility]. He was sent to ECF on doxycycline and has completed his course of therapy. He continues to have dry scaly skin and chronic venous stasis changes, but has no evidence of infection currently. (4) Acute kidney injury superimposed on CKD Status: Acute Assessment & Plan: Creatinine has improved. BUN is elevated. He is on Lasix. Will monitor labs periodically. (5) PVD (peripheral vascular disease) Status: Chronic Assessment & Plan: Continue apixaban and add Plavix per cardiology ([facility]). (6) Pulmonary hypertension Status: Chronic Assessment & Plan: Continue Admepas 2.5mg tid. Cardiology at [facility] recommended the patient be seen at [facility] for ongoing severe pulmonary HTN despite treatment. (7) NSTEMI (non-ST elevated myocardial infarction) Status: Acute Assessment & Plan: The patient was transferred from [facility] medical floor to [facility] with ischemic changes on EKG and elevation of his troponin. Cardiology at [facility] evaluated the patient and recommended medical management. ASA was stopped and Plavix was added to his apixaban. His chest pain resolved and his troponins stabilized while at [facility] and he was transferred to [facility] for rehabilitation. 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 He is HLA-B27 positive. He is unable to take NSAIDs. Will continue pain medications as needed. His CRP has been elevated. (9) CAD (coronary artery disease) Status: Chronic Assessment & Plan: He has multiple LYNDSEY, 2 in his L circumflex and 3 in his RCA. He has a hx of diastolic dysfunction as well. (10) Atrial flutter Status: Chronic Assessment & Plan: On chronic anticoagulation. Rate is currently controlled on carvedilol. (11) DVT (deep venous thrombosis) Status: Chronic Assessment & Plan: Recurrent. He is on chronic anticoagulation as above. (12) Chronic respiratory failure Status: Chronic Assessment & Plan: He wears O2 at home. He has a long history of smoking was stopped many years ago. (13) Dyslipidemia Status: Chronic Assessment & Plan: Continue Crestor 40mg daily. (14) GERD (gastroesophageal reflux disease) Status: Chronic Assessment & Plan: Continue pantoprazole. (15) Hypothyroid Status: Chronic Assessment & Plan: Continue levothyroxine. (16) Multiple myeloma Status: Chronic Assessment & Plan: Indolent per the patient. (17) Anxiety and depression Status: Chronic Assessment & Plan: Continue alprazolam and Zolpidem prn. Time Spent on Plan of Care: < 30 min Heart Failure Ejection Fraction %: 60 RVSP (mmHg): 82 NYHA Class: II Is Patient on MAHI Inhibitor?: No Is Patient on Beta Jigar?: Yes Problem Qualifiers (1) Multiple myeloma: Multiple myeloma remission status: unspecified Qualified Codes: C90.00 - Multiple myeloma not having achieved remission SIERRA GARCIA MD October 27, 2017 13:07
[2017-10-27 17:15] VITALS: BP 113/62
[2017-10-27] MEDS: FINASTERIDE 5 MG TAB PO SCH (21:07)
[2017-10-27] MEDS: ROSUVASTATIN CALCIUM 10 MG TAB PO SCH (21:08)
[2017-10-28] MEDS: APAP/HYDROCODONE 325/5 TAB PO PRN ×2 (00:03→23:50)
[2017-10-28] MEDS: ZOLPIDEM TARTRATE 5 MG TAB PO PRN (00:04)
[2017-10-28] MEDS: LEVOTHYROXINE SOD 0.112 MG TAB PO SCH (05:15)
[2017-10-28 06:40] LABS: PLATELET COUNT, AUTOMATED 302 K/uL (150-450)
[2017-10-28 08:00] VITALS: BP 117/64
[2017-10-28] MEDS: FUROSEMIDE 40 MG TAB PO SCH (08:46)
[2017-10-28] MEDS: CLOPIDOGREL BISULFATE 75MG TAB PO SCH (08:46)
[2017-10-28] MEDS: DOCUSATE SODIUM 100 MG CAP PO SCH ×2 (08:46→20:45)
[2017-10-28] MEDS: APIXABAN 2.5 MG TABLET PO SCH ×2 (08:46→20:45)
[2017-10-28] MEDS: CARVEDILOL 3.125 MG TAB PO SCH ×2 (08:47→20:46)
[2017-10-28] MEDS: PREGABALIN 50 MG CAP PO SCH ×2 (08:47→20:46)
[2017-10-28] MEDS: RIOCIGUAT 2.5 MG PO SCH ×3 (08:47→20:45)
[2017-10-28] MEDS: FERROUS SULFATE 325 MG TAB PO SCH (12:33)
[2017-10-28 18:28] VITALS: BP 120/66
[2017-10-28] MEDS: FINASTERIDE 5 MG TAB PO SCH (20:45)
[2017-10-28] MEDS: ROSUVASTATIN CALCIUM 10 MG TAB PO SCH (20:46)
[2017-10-28] MEDS: ALPRAZolam 0.5 MG TAB PO PRN (23:50)
[2017-10-29] MEDS: LEVOTHYROXINE SOD 0.112 MG TAB PO SCH (05:51)
[2017-10-29 07:20] VITALS: BP 130/72
[2017-10-29] MEDS: CARVEDILOL 3.125 MG TAB PO SCH ×2 (08:31→20:46)
[2017-10-29] MEDS: RIOCIGUAT 2.5 MG PO SCH ×3 (08:31→20:45)
[2017-10-29] MEDS: FUROSEMIDE 40 MG TAB PO SCH (08:31)
[2017-10-29] MEDS: APIXABAN 2.5 MG TABLET PO SCH ×2 (08:31→20:46)
[2017-10-29] MEDS: PREGABALIN 50 MG CAP PO SCH ×2 (08:31→20:46)
[2017-10-29] MEDS: DOCUSATE SODIUM 100 MG CAP PO SCH ×2 (08:31→20:46)
[2017-10-29] MEDS: CLOPIDOGREL BISULFATE 75MG TAB PO SCH (08:31)
[2017-10-29] MEDS: FERROUS SULFATE 325 MG TAB PO SCH (12:32)
--- NOTE | 2017-10-29 12:52 | OT ECF NOTE ---
Type of Note: Discharge Note Primary Medical Diagnosis: Generalized weakness Occupational Therapy Evaluation Date: 10/20/17 SUBJECTIVE: Prior Hospitalization: [facility] 10/15/17 thru 10/16/17. [facility] 10/16/17 thru 10/20/17 Prior Level of Function: Independent with ADLs and IADLs. [facility] 1x/ week for assist with any needs Prior Living Status: Bi-level house, Alone Community Services: [facility] Home Accessibility: Stairs with rails, Walk-in shower Equipment Owned: Cane-two. No other equipment. Medical Complications/Past Medical History: Please refer to EMR Psychosocial Support: Friends in [place] and Daughter in [place], AIXA Pain Scale (0-10): None reported at time of evaluation OBJECTIVE: Strength: MMT: Right Left Shoulder Flexion WFL WFL Elbow Flexion WFL WFL Wrist Extension WFL WFL Resident Services Supervisor WFL WFL (5= normal, 4= good, 3= fair, 2= poor, 1= trace) ROM: Both upper extremities, WFL Sensation: Neuropathy in B LE Functional Transfer: Assistive Device: Quad cane or no AD Transfer Ability: SBA/Independent-Pt reports being at baseline for mobility/ADLs/IADLs ADL: Upper body dressing: Assistive device: None Upper body dressing ability: Independent Lower body dressing: Assistive device: None Lower body dressing ability: Independent Toileting: Assistive device: None Toileting ability: Independent Grooming/hygiene: Assistive device: Standing Grooming ability: Independent Bathing: Assistive device: Standing-Pt educated on shower chair and energy conservation recommendations. Declines to obtain a shower chair. Bathing ability: Independent Standardized Assessment: Stacie Index of Activities of Daily Livin/20 upon initial evaluation (). 20/20 upon discharge (10/29/17). ASSESSMENT: Meño presented to ECF s/p recent hospital admission. Pt reports feeling back to baseline and agreeable to discharge from skilled OT services. OT goals met. Encouraged continued [facility] services for IADLs with possible increased assist for (groceries/laundry/med management). Rec HH services, bed rail, and RW for community mobility. Pt verbalized understanding although resistant to initiate recommendations. Extensive education for safety and energy conservation incorporated into skilled OT tx sessions. Pt with no further questions or concerns for OT at time of discharge. Problem List/Current Limitations: Pain Decreased activity tolerance Generalized weakness Short Term Goals: 1) Pt will be Mod (I) UB/LB dressing. GOAL MET 2) Pt will be Independent grooming/hygiene. GOAL MET 3) Pt will demonstrate good endurance for independent standing shower task. GOAL MET 4) Pt will be Independent toileting. GOAL MET 5) Pt Stacie Index of ADLs will increase by 2 points. GOAL MET 6) Pt will be educated on appropriate energy conservation and adaptive methods for ADLs/IADLs. GOAL MET Jail Goals: Return home-Pt resistant to all discussion regarding benefits of senior housing or [facility]. Patient Goals: "Get rid of the burning in my feet" Rehabilitation Prognosis: Good Barriers to Discharge: Medical hx, adherence to recommendations and education PLAN: The patient will be discharged from skilled OT services. Upon discharge home, recommend services and continues assist from [facility] for IADLs. Thank you for this referral. If you have any questions, concerns, or comments about this report or plan, please contact me at . Mary Godinez MS, OTR/L Occupational Therapist DAVID
[2017-10-29 19:50] VITALS: BP 118/69
[2017-10-29] MEDS: ROSUVASTATIN CALCIUM 10 MG TAB PO SCH (20:46)
[2017-10-29] MEDS: FINASTERIDE 5 MG TAB PO SCH (20:46)
[2017-10-30] MEDS: LEVOTHYROXINE SOD 0.112 MG TAB PO SCH (06:04)
[2017-10-30 07:20] VITALS: BP 126/64
[2017-10-30] MEDS: PREGABALIN 50 MG CAP PO SCH ×2 (08:50→20:52)
[2017-10-30] MEDS: RIOCIGUAT 2.5 MG PO SCH ×3 (08:50→20:49)
[2017-10-30] MEDS: APIXABAN 2.5 MG TABLET PO SCH ×2 (08:51→20:51)
[2017-10-30] MEDS: DOCUSATE SODIUM 100 MG CAP PO SCH ×2 (08:51→21:00)
[2017-10-30] MEDS: CARVEDILOL 3.125 MG TAB PO SCH ×2 (08:51→20:51)
[2017-10-30] MEDS: CLOPIDOGREL BISULFATE 75MG TAB PO SCH (08:51)
[2017-10-30] MEDS: FUROSEMIDE 40 MG TAB PO SCH (08:51)
[2017-10-30] MEDS: ALPRAZolam 0.5 MG TAB PO PRN ×3 (12:30→23:50)
[2017-10-30] MEDS: FERROUS SULFATE 325 MG TAB PO SCH (12:30)
[2017-10-30 17:59] VITALS: BP 131/80
[2017-10-30] MEDS: PANTOPRAZOLE SOD 40 MG TABEC PO PRN (18:01)
[2017-10-30] MEDS: ROSUVASTATIN CALCIUM 10 MG TAB PO SCH (20:50)
[2017-10-30] MEDS: FINASTERIDE 5 MG TAB PO SCH (20:51)
[2017-10-30] MEDS: diphenhydrAMINE 25 MG CAP PO PRN (23:47)
[2017-10-30] MEDS: ZOLPIDEM TARTRATE 5 MG TAB PO PRN (23:47)
[2017-10-31] MEDS: LEVOTHYROXINE SOD 0.112 MG TAB PO SCH (06:08)
[2017-10-31 08:01] VITALS: BP 104/56
[2017-10-31] MEDS: CARVEDILOL 3.125 MG TAB PO SCH ×2 (08:57→20:36)
[2017-10-31] MEDS: FUROSEMIDE 40 MG TAB PO SCH (08:57)
[2017-10-31] MEDS: RIOCIGUAT 2.5 MG PO SCH ×3 (08:57→21:00)
[2017-10-31] MEDS: DOCUSATE SODIUM 100 MG CAP PO SCH ×2 (08:58→21:00)
[2017-10-31] MEDS: CLOPIDOGREL BISULFATE 75MG TAB PO SCH (08:58)
[2017-10-31] MEDS: APIXABAN 2.5 MG TABLET PO SCH ×2 (08:58→20:36)
[2017-10-31] MEDS: PREGABALIN 50 MG CAP PO SCH ×2 (08:58→20:36)
[2017-10-31] MEDS: PANTOPRAZOLE SOD 40 MG TABEC PO PRN (09:55)
--- NOTE | 2017-10-31 10:19 | Medical Nutrition Therapy ---
Nutrition Anthropometrics Height (Inches): 66.00 Height (Calculated Centimeters: 167.613369 Weight (Pounds): 156 Weight (Calculated Kilograms): 70.874 Christiano Nutrition Score: Adequate Christiano Nutrition Risk Score: 18 Dietary Referral Nutrition Risk Factors: Nutrition Risk Comment: Physical Findings Physical Appearance: BMI 23.9 Skin Appearance Skin Appearance: Edema Edema Location Modifier: Right Edema Location: Foot Type of Edema: Degree of Edema: 1+ Gastrointestinal Symptoms GI Symtoms: Tube Present: Bowel Sounds: Recent Bowel Pattern: Stool Characteristics: Nutritional Diagnosis Nutritional Risk Acuity 2: Chronic Renal Failure (with acute renal injury) Nutritional Risk Acuity 4: Good Appetite Past Medical History: Pulmonary embolism, GERD, CHF, dyslipidemia, weakness, DVT, Acute renal failure Nutritional Acuity: 2-Moderate Nutrition Diagnosis: Increased Nutrient Needs Nutrition Etiology: Physiological Causes Nutrition Problem/Etiology/Sym: Increase nutrient needs realted to physiological causes AEB decrease in activity per OT note (10/20) and weakness. Energy Requirement: 1743 ([place] [address] 1341 X Af 1.3 = 1743kcal/day) Adjusted Energy Requirement Re: 67 (1g/kg 1 X 67.132) Fluid Requirement: 1675 (> 75 yrs 25ml/kg 25X67.132) Diet Type: Diet as Tolerated CABRERA/REG Nutrition Intervention: Cont diet as ordered, Encourage intake Drug: Diuretics Food Likes: open face turkey sand with mpg on top Nutrition Monitoring & Eval Nutrition Goals: Eat 75-100% Meal Nutrition Follow-Up: Good Intake RD Patient Assessment Time: [address] Assessment Type: RD Re-Assessment Patient Nutrition Acuity: 2-Moderate Follow Up Date: Nov 09, 2017 Nutritional Comment: 10/21 Pt was admitted for weakness with an extensive past medical history of Chronic venous insufficiency with edema, CHF and CAD. Pt states his whole body aches and had chest pain (10/16). Yesterday pt was sent to [facility] for medical observations. states that pt is at risk for cardiac catheter. Pt is on ACBRERA/REG diet with oral intake of 100%. However, pt may benefit from CHF diet due his medical history. Notable labs indicate elevated BUN 26. Continue to monitor pt and encourage intake. MT 10/25 Pt continues on CABRERA/REG diet with 100% oral intake. There are no concerns lab at this time. OT note (10/20) states the pt has decrease in activity and still is weak. Continue to monitor pt progress and encourage intake to help meet energy needs. MT 10/31 Pt on CABRERA and eating 100% of meals. Pt has dx acute renal failure superimposed on CKD. Creatinine is currently WNR at 1.1. BUN cont elevated at 34. Alb improved slightly at 2.7 but may be low r/t non-pitting an 1+ edema LE. Pt is recieving lasix. K+ is WNR at 4.3. Wt is up 5.4% possibly r/t edema. Will cont to monitor and encourage intake. TELLY WONG October 31, 2017 10:19
[2017-10-31 10:43] VITALS: BP 110/58
[2017-10-31 12:30] VITALS: BP 105/53
[2017-10-31] MEDS: FERROUS SULFATE 325 MG TAB PO SCH (12:38)
[2017-10-31 16:31] VITALS: BP 116/64
--- NOTE | 2017-10-31 17:17 | Hospitalist Progress Note ---
Subjective Progress Notes Subjective Patient has developed low grade fever and increased O2 requirement. He reports feeling "pretty lousy". Physical Exam Vital Signs Date Time Temp Pulse Resp B/P (MAP) Pulse Ox O2 Delivery O2 Flow Rate FiO2 10/31/17 16:35 90 High-Flow Nasal Cannula 6.0 10/31/17 16:31 99.9 73 20 116/64 (81) Intake and Output 11/01/17 07:00 Intake Total 840 ml Output Total 1225 ml Balance -385 ml Intake Oral 840 ml Output Urine Total 1225 ml # Voids 5 General Appearance: Alert, Awake Cardiovascular: Regular Rate and Rhythm Respiratory: Other (few rales at both bases/no wheezes) GI: Soft and Non-Tender Extremities: Edema Integumentary: Scaly / Dry Skin Result Diagram: 10/28/1761510/28/17615 Assessment and Plan Problems: (1) Pneumonia Status: Acute Assessment & Plan: It appears he has a RML/RLL pneumonia on CXR. Will place on IV antibiotics for coverage of possible hospital acquired pneumonia. Encouraged him to be out of bed several times a day and work with incentive spirometry. Watch closely. (2) Generalized weakness Status: Acute Assessment & Plan: The patient's generalized weakness is multifactorial. He is improving with PT/OT. (3) IRON DEFICIENCY ANEMIA, UNSPECIFIED Status: Chronic Assessment & Plan: The patient is on iron supplements. His hemoglobin was lower today on lab work but not considerably different than what was reported during his stay at [facility]. He has not had evidence of GI blood loss. Will order stool for occult blood. VSS. Will repeat labs in am. (4) Cellulitis and abscess of left leg Status: Resolved Assessment & Plan: The patient was treated for acute cellulitis of the LLE while at [facility]. He was sent to ECF on doxycycline and has completed his course of therapy. He continues to have dry scaly skin and chronic venous stasis changes, but has no evidence of infection currently. (5) Acute kidney injury superimposed on CKD Status: Acute Assessment & Plan: Creatinine has improved. BUN is elevated. He is on Lasix. Will monitor labs periodically. (6) PVD (peripheral vascular disease) Status: Chronic Assessment & Plan: Continue apixaban and add Plavix per cardiology ([facility]). (7) Pulmonary hypertension Status: Chronic Assessment & Plan: Continue Admepas 2.5mg tid. Cardiology at [facility] recommended the patient be seen at [facility] for ongoing severe pulmonary HTN despite treatment. (8) NSTEMI (non-ST elevated myocardial infarction) Status: Acute Assessment & Plan: The patient was transferred from [facility] medical floor to [facility] with ischemic changes on EKG and elevation of his troponin. Cardiology at [facility] evaluated the patient and recommended medical management. ASA was stopped and Plavix was added to his apixaban. His chest pain resolved and his troponins stabilized while at [facility] and he was transferred to [facility] for rehabilitation. 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 He is HLA-B27 positive. He is unable to take NSAIDs. Will continue pain medications as needed. His CRP has been elevated. (10) CAD (coronary artery disease) Status: Chronic Assessment & Plan: He has multiple LYNDSEY, 2 in his L circumflex and 3 in his RCA. He has a hx of diastolic dysfunction as well. (11) Atrial flutter Status: Chronic Assessment & Plan: On chronic anticoagulation. Rate is currently controlled on carvedilol. (12) DVT (deep venous thrombosis) Status: Chronic Assessment & Plan: Recurrent. He is on chronic anticoagulation as above. (13) Chronic respiratory failure Status: Chronic Assessment & Plan: He wears O2 at home. He has a long history of smoking was stopped many years ago. (14) Dyslipidemia Status: Chronic Assessment & Plan: Continue Crestor 40mg daily. (15) GERD (gastroesophageal reflux disease) Status: Chronic Assessment & Plan: Continue pantoprazole. (16) Hypothyroid Status: Chronic Assessment & Plan: Continue levothyroxine. (17) Multiple myeloma Status: Chronic Assessment & Plan: Indolent per the patient. (18) Anxiety and depression Status: Chronic Assessment & Plan: Continue alprazolam and Zolpidem prn. Heart Failure Ejection Fraction %: 60 RVSP (mmHg): 82 NYHA Class: II Is Patient on MAHI Inhibitor?: No Is Patient on Beta Jigar?: Yes Problem Qualifiers (1) Multiple myeloma: Multiple myeloma remission status: unspecified Qualified Codes: C90.00 - Multiple myeloma not having achieved remission RONDA GARCIA MD October 31, 2017 17:17
[2017-10-31] MEDS ORDERED: NS(*) 0.9% 500 ML BAG 500 ML IV PRN (17:25)
--- NOTE | 2017-10-31 17:26 | RADIOLOGY IMAGING REPORT ---
FACILITY: [facility] PATIENT NAME: Meño Arechiga : 1940 MR: [id number] V: [id number] EXAM DATE: ORDERING PHYSICIAN: RONDA GARCIA TECHNOLOGIST: Location: [facility] [place] Patient: Meño Arechiga : 1940 Visit/Account:[id number] Date of Sevice: 10/31/2017 CHEST SINGLE AP Indication: Increased need for oxygen.. Comparison: 10/14/2017. Findings: Cardiac silhouette remains enlarged but unchanged. Mediastinal silhouette within normal is. The centr al pulmonary vessels are mildly prominent. There is mild increased interstitial opacities seen within the lungs mainly in the central distributi on. No focal areas of consolidation. No pneumothorax or pleural effusion. No nodule. Upper abdomen is unremarkable. No acute bony abnormality. IMPRESSION: 1. Stable enlarged cardiac silhouette with mild edema. No focal infiltrate. Report Dictated By: Domingo Morales at 10/31/2017 5:21 PM Report E-Signed By: Domingo Morales at 10/31/2017 5:22 PM WSN:[id number]
[2017-10-31] MEDS: CEFEPIME HCL 2 GM VIAL IVP SCH ×2 (17:59→20:53)
[2017-10-31 19:42] LABS: PLATELET COUNT, AUTOMATED 367 K/uL (150-450)
[2017-10-31] MEDS: ROSUVASTATIN CALCIUM 10 MG TAB PO SCH (20:36)
[2017-10-31] MEDS: FINASTERIDE 5 MG TAB PO SCH (20:36)
[2017-10-31] MEDS: ALPRAZolam 0.5 MG TAB PO PRN (23:53)
[2017-11-01] MEDS: LEVOTHYROXINE SOD 0.112 MG TAB PO SCH (05:24)
[2017-11-01 08:29] VITALS: BP 130/65
[2017-11-01] MEDS: APAP/HYDROCODONE 325/5 TAB PO PRN ×4 (08:36→21:51)
[2017-11-01] MEDS: APIXABAN 2.5 MG TABLET PO SCH ×2 (08:37→21:24)
[2017-11-01] MEDS: PREGABALIN 50 MG CAP PO SCH ×2 (08:37→21:24)
[2017-11-01] MEDS: CLOPIDOGREL BISULFATE 75MG TAB PO SCH (08:37)
[2017-11-01] MEDS: DOCUSATE SODIUM 100 MG CAP PO SCH ×2 (08:37→21:24)
[2017-11-01] MEDS: CARVEDILOL 3.125 MG TAB PO SCH ×2 (08:37→21:24)
[2017-11-01] MEDS: RIOCIGUAT 2.5 MG PO SCH ×3 (08:38→21:23)
[2017-11-01] MEDS: CEFEPIME HCL 2 GM VIAL IVP SCH ×2 (08:48→21:22)
[2017-11-01] MEDS: FUROSEMIDE 40 MG TAB PO SCH (09:00)
[2017-11-01] MEDS: FERROUS SULFATE 325 MG TAB PO SCH (12:08)
[2017-11-01 15:50] VITALS: BP 115/59
[2017-11-01] MEDS: ROSUVASTATIN CALCIUM 10 MG TAB PO SCH (21:23)
[2017-11-01] MEDS: FINASTERIDE 5 MG TAB PO SCH (21:29)
[2017-11-01] MEDS: ZOLPIDEM TARTRATE 5 MG TAB PO PRN (23:38)
[2017-11-02] MEDS: ACETAMINOPHEN 325 MG TAB PO PRN (02:25)
[2017-11-02] MEDS: APAP/HYDROCODONE 325/5 TAB PO PRN ×4 (02:38→20:09)
[2017-11-02] MEDS ORDERED: AZITHROMYCIN(*) 500 MG 500 MG in NS(*) 0.9% 250 ML BAG 250 ML IVPB SCH (03:00)
[2017-11-02] MEDS: LEVOTHYROXINE SOD 0.112 MG TAB PO SCH (06:24)
[2017-11-02 07:32] VITALS: BP 142/72
[2017-11-02 07:50] VITALS: BP 118/66
[2017-11-02] MEDS: RIOCIGUAT 2.5 MG PO SCH ×3 (08:36→20:25)
[2017-11-02] MEDS: DOCUSATE SODIUM 100 MG CAP PO SCH ×2 (08:37→20:20)
[2017-11-02] MEDS: PREGABALIN 50 MG CAP PO SCH ×2 (08:37→20:17)
[2017-11-02] MEDS: FUROSEMIDE 40 MG TAB PO SCH (08:37)
[2017-11-02] MEDS: CLOPIDOGREL BISULFATE 75MG TAB PO SCH (08:37)
[2017-11-02] MEDS: APIXABAN 2.5 MG TABLET PO SCH ×2 (08:37→20:17)
[2017-11-02] MEDS: CARVEDILOL 3.125 MG TAB PO SCH ×2 (08:37→20:17)
[2017-11-02 08:54] LABS: PLATELET COUNT, AUTOMATED 349 K/uL (150-450)
[2017-11-02] MEDS: CEFEPIME HCL 2 GM VIAL IVP SCH ×2 (09:40→20:16)
[2017-11-02] MEDS ORDERED: BENZONATATE 100 MG CAP PO PRN (09:50)
--- NOTE | 2017-11-02 10:12 | Hospitalist Progress Note ---
Subjective Progress Notes Subjective Patient has had increased fevers and cough. He also is requiring increased oxygen use. Patient Complains of: Cardiovascular: No: Chest Pain Respiratory: Cough, Congestion, No: Shortness of Breath Gastrointestinal: No Nausea Musculoskeletal: Pain (arthritis pain) Physical Exam Vital Signs Date Time Temp Pulse Resp B/P (MAP) Pulse Ox O2 Delivery O2 Flow Rate FiO2 11/02/17 07:50 97.1 79 14 118/66 (83) 90 Nasal Cannula 5.0 Intake and Output 11/03/17 01:00 Intake Total 250 ml Balance 250 ml IV Total 250 ml # Voids 1 General Appearance: Alert, Awake, No Acute Distress Neuro: No Gross deficits Cardiovascular: Regular Rate and Rhythm Respiratory: No Respiratory Distress, Other (crackles noted to bilateral lower extremities, moist cough noted) GI: Soft and Non-Tender Integumentary: Scaly / Dry Skin Result Diagram: 11/02/1784211/02/17842 Assessment and Plan Problems: (1) Pneumonia Status: Acute Assessment & Plan: It appears he has a RML/RLL pneumonia on CXR. He was placed on IV antibiotics for coverage of possible hospital acquired pneumonia with Cefepime, but we will add azithromycin today. Lactate performed today within normal limits, WBC increased to 13.7. Encouraged him to be out of bed several times a day. He will get nebulizers, Tessalon Perles, Guaifenesin, and use flutter therapy. We will recheck labs tomorrow morning. (2) Generalized weakness Status: Acute Assessment & Plan: The patient's generalized weakness is multifactorial. He is improving with PT/OT. (3) IRON DEFICIENCY ANEMIA, UNSPECIFIED Status: Chronic Assessment & Plan: The patient is on iron supplements. His hemoglobin was lower today on lab work but not considerably different than what was reported during his stay at [facility]. He has not had evidence of GI blood loss. Stool for occult blood was positive. VSS. Will repeat labs in am. (4) Cellulitis and abscess of left leg Status: Resolved Assessment & Plan: The patient was treated for acute cellulitis of the LLE while at [facility]. He was sent to [facility] on doxycycline and has completed his course of therapy. He continues to have dry scaly skin and chronic venous stasis changes, but has no evidence of infection currently. (5) Acute kidney injury superimposed on CKD Status: Acute Assessment & Plan: Creatinine is 1.4. BUN is elevated. He is on Lasix. Will monitor labs periodically. (6) PVD (peripheral vascular disease) Status: Chronic Assessment & Plan: Continue apixaban and add Plavix per cardiology ([facility]). (7) Pulmonary hypertension Status: Chronic Assessment & Plan: Continue Admepas 2.5mg tid. Cardiology at [facility] recommended the patient be seen at [facility] for ongoing severe pulmonary HTN despite treatment. (8) NSTEMI (non-ST elevated myocardial infarction) Status: Acute Assessment & Plan: The patient was transferred from [facility] medical floor to [facility] with ischemic changes on EKG and elevation of his troponin. Cardiology at [facility] evaluated the patient and recommended medical management. ASA was stopped and Plavix was added to his apixaban. His chest pain resolved and his troponins stabilized while at [facility] and he was transferred to [facility] for rehabilitation. 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 He is HLA-B27 positive. He is unable to take NSAIDs. Will continue pain medications as needed. His CRP has been elevated. (10) CAD (coronary artery disease) Status: Chronic Assessment & Plan: He has multiple LYNDSEY, 2 in his L circumflex and 3 in his RCA. He has a hx of diastolic dysfunction as well. (11) Atrial flutter Status: Chronic Assessment & Plan: On chronic anticoagulation. Rate is currently controlled on carvedilol. (12) DVT (deep venous thrombosis) Status: Chronic Assessment & Plan: Recurrent. He is on chronic anticoagulation as above. (13) Chronic respiratory failure Status: Chronic Assessment & Plan: He wears O2 at home. He has a long history of smoking was stopped many years ago. (14) Dyslipidemia Status: Chronic Assessment & Plan: Continue Crestor 40mg daily. (15) GERD (gastroesophageal reflux disease) Status: Chronic Assessment & Plan: Continue pantoprazole. (16) Hypothyroid Status: Chronic Assessment & Plan: Continue levothyroxine. (17) Multiple myeloma Status: Chronic Assessment & Plan: Indolent per the patient. (18) Anxiety and depression Status: Chronic Assessment & Plan: Continue alprazolam and Zolpidem prn. Heart Failure Ejection Fraction %: 60 RVSP (mmHg): 82 NYHA Class: II Is Patient on MAHI Inhibitor?: No Is Patient on Beta Jigar?: Yes Problem Qualifiers (1) Multiple myeloma: Multiple myeloma remission status: unspecified Qualified Codes: C90.00 - Multiple myeloma not having achieved remission CLEMENCIA AGARWAL REINFORCING IRON WORKER HELPER November 02, 2017 10:12
[2017-11-02] MEDS: ALBUTEROL/IPRATROPIUM 3 ML NEB NEB SCH ×2 (11:04→16:43)
[2017-11-02] MEDS: FERROUS SULFATE 325 MG TAB PO SCH (12:32)
[2017-11-02 15:50] VITALS: BP 102/58
[2017-11-02] MEDS: ROSUVASTATIN CALCIUM 10 MG TAB PO SCH (20:17)
[2017-11-02] MEDS: guaiFENesin 600 MG TABCR PO SCH (20:17)
[2017-11-02] MEDS: FINASTERIDE 5 MG TAB PO SCH (20:17)
[2017-11-02] MEDS: AZITHROMYCIN(*) 500 MG 500 MG in NS(*) 0.9% 250 ML BAG 250 ML IVPB SCH (20:20)
[2017-11-03] MEDS ORDERED: AZITHROMYCIN(*) 500 MG 500 MG in NS(*) 0.9% 250 ML BAG 250 ML IVPB SCH (03:00)
[2017-11-03] MEDS: ACETAMINOPHEN 325 MG TAB PO PRN (03:57)
[2017-11-03 06:00] LABS: PLATELET COUNT, AUTOMATED 328 K/uL (150-450)
[2017-11-03] MEDS: APAP/HYDROCODONE 325/5 TAB PO PRN ×4 (06:05→21:21)
[2017-11-03] MEDS: LEVOTHYROXINE SOD 0.112 MG TAB PO SCH (06:05)
[2017-11-03] MEDS: ALBUTEROL/IPRATROPIUM 3 ML NEB NEB SCH ×3 (06:16→16:44)
[2017-11-03] MEDS: ALPRAZolam 0.5 MG TAB PO PRN (07:41)
[2017-11-03 08:05] VITALS: BP 103/56
[2017-11-03] MEDS: DOCUSATE SODIUM 100 MG CAP PO SCH ×2 (09:00→21:21)
[2017-11-03] MEDS: CEFEPIME HCL 2 GM VIAL IVP SCH ×2 (09:11→21:20)
[2017-11-03] MEDS: CLOPIDOGREL BISULFATE 75MG TAB PO SCH (09:12)
[2017-11-03] MEDS: PREGABALIN 50 MG CAP PO SCH ×2 (09:12→21:21)
[2017-11-03] MEDS: guaiFENesin 600 MG TABCR PO SCH ×2 (09:12→21:00)
[2017-11-03] MEDS: RIOCIGUAT 2.5 MG PO SCH ×3 (09:12→21:19)
[2017-11-03] MEDS: CARVEDILOL 3.125 MG TAB PO SCH ×2 (09:12→21:21)
[2017-11-03] MEDS: FUROSEMIDE 40 MG TAB PO SCH (09:12)
[2017-11-03] MEDS: APIXABAN 2.5 MG TABLET PO SCH ×2 (09:13→21:20)
[2017-11-03 11:00] VITALS: BP 125/56
[2017-11-03] MEDS: FERROUS SULFATE 325 MG TAB PO SCH (12:33)
--- NOTE | 2017-11-03 14:37 | Hospitalist Progress Note ---
Subjective Progress Notes Subjective The patient is a bit sleepy today. He received Xanax at about 8am. Physical Exam Vital Signs Date Time Temp Pulse Resp B/P (MAP) Pulse Ox O2 Delivery O2 Flow Rate FiO2 11/03/17 11:10 91 Nasal Cannula 4.5 11/03/17 11:00 125/56 (79) 11/03/17 08:05 97.3 75 15 Intake and Output 11/04/17 07:00 Intake Total 480 ml Output Total 350 ml Balance 130 ml Intake Oral 480 ml Output Urine Total 350 ml # Voids 1 General Appearance: Other (Sleepy but easily arousable and appears usual self when awake.) Neuro: No Gross deficits Eyes: PERRLA Cardiovascular: Regular Rate and Rhythm Respiratory: Other (Few rales R midclavicaular line initially on exam.) GI: Soft and Non-Tender, Other (Slightly distended. BS +.) Extremities: Warm Integumentary: Scaly / Dry Skin, Other (Chronic venous stasis changes L>R.) Psych: Appropriate Mood & Affect Result Diagram: 11/03/17 0540 11/03/17 0540 Assessment and Plan Problems: (1) Pneumonia Status: Acute Assessment & Plan: It appears he has a RML/RLL pneumonia on CXR. He was placed on IV antibiotics for coverage of possible hospital acquired pneumonia with Cefepime, but azithromycin added when he developed fever to broaden coverage. Lactate performed 11/02 within normal limits, WBC increased to 13.7. Encouraged him to be out of bed several times a day. He will get nebulizers, Tessalon Perles, Guaifenesin, and use flutter therapy. WBC decreased a bit today. Will repeat in am. (2) Generalized weakness Status: Acute Assessment & Plan: The patient's generalized weakness is multifactorial. He is improving with PT/OT. (3) IRON DEFICIENCY ANEMIA, UNSPECIFIED Status: Chronic Assessment & Plan: The patient is on iron supplements. His hemoglobin was lower today on lab work but not considerably different than what was reported during his stay at [facility]. He has not had evidence of GI blood loss. Stool for occult blood was positive. VSS. Will repeat labs in am. (4) Cellulitis and abscess of left leg Status: Resolved Assessment & Plan: The patient was treated for acute cellulitis of the LLE while at [facility]. He was sent to ECF on doxycycline and has completed his course of therapy. He continues to have dry scaly skin and chronic venous stasis changes, but has no evidence of infection currently. (5) Acute kidney injury superimposed on CKD Status: Acute Assessment & Plan: Creatinine is 1.7. BUN is elevated. He is on Lasix. Will monitor labs periodically. (6) PVD (peripheral vascular disease) Status: Chronic Assessment & Plan: Continue apixaban and add Plavix per cardiology ([facility]). (7) Pulmonary hypertension Status: Chronic Assessment & Plan: Continue Admepas 2.5mg tid. Cardiology at [facility] recommended the patient be seen at [facility] for ongoing severe pulmonary HTN despite treatment. (8) NSTEMI (non-ST elevated myocardial infarction) Status: Acute Assessment & Plan: The patient was transferred from [facility] medical floor to [facility] with ischemic changes on EKG and elevation of his troponin. Cardiology at [facility] evaluated the patient and recommended medical management. ASA was stopped and Plavix was added to his apixaban. His chest pain resolved and his troponins stabilized while at [facility] and he was transferred to [facility] ECF for rehabilitation. 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 He is HLA-B27 positive. He is unable to take NSAIDs. Will continue pain medications as needed. His CRP has been elevated. (10) CAD (coronary artery disease) Status: Chronic Assessment & Plan: He has multiple LYNDSEY, 2 in his L circumflex and 3 in his RCA. He has a hx of diastolic dysfunction as well. (11) Atrial flutter Status: Chronic Assessment & Plan: On chronic anticoagulation. Rate is currently controlled on carvedilol. (12) DVT (deep venous thrombosis) Status: Chronic Assessment & Plan: Recurrent. He is on chronic anticoagulation as above. (13) Chronic respiratory failure Status: Chronic Assessment & Plan: He wears O2 at home. He has a long history of smoking was stopped many years ago. (14) Dyslipidemia Status: Chronic Assessment & Plan: Continue Crestor 40mg daily. (15) GERD (gastroesophageal reflux disease) Status: Chronic Assessment & Plan: Continue pantoprazole. (16) Hypothyroid Status: Chronic Assessment & Plan: Continue levothyroxine. (17) Multiple myeloma Status: Chronic Assessment & Plan: Indolent per the patient. (18) Anxiety and depression Status: Chronic Assessment & Plan: Continue Zolpidem prn. Will DC alprazolam as this appears to make him quite drowsy if given during the day. Time Spent on Plan of Care: < 30 min Heart Failure Ejection Fraction %: 60 RVSP (mmHg): 82 NYHA Class: II Is Patient on MAHI Inhibitor?: No Is Patient on Beta Jigar?: Yes Problem Qualifiers (1) Multiple myeloma: Multiple myeloma remission status: unspecified Qualified Codes: C90.00 - Multiple myeloma not having achieved remission SIERRA GARCIA MD November 03, 2017 14:37
--- NOTE | 2017-11-03 15:24 | RADIOLOGY IMAGING REPORT ---
FACILITY: [facility] PATIENT NAME: Meño Arechiga : 1940 MR: [id number] V: [id number] EXAM DATE: ORDERING PHYSICIAN: SIERRA GARCIA TECHNOLOGIST: Location: [facility] [place] Patient: Meño Arechiga : 1940 Visit/Account:[id number] Date of Sevice: 11/03/2017 CHEST SINGLE AP Provided history: cough, fever Additional pertinent history: none One view obtained COMPARISON STUDIES: 10/31/17 FINDINGS: Support lines and tubes: None. Lungs / pleura / lm: No infiltrate, effusion or pneumothorax. Heart / mediastinum /vessels: Moderate cardiac enlargement is stable from prior. Venous engorgemen t shows generally mild improvement. Interstitial edema in the lung bases is mildly improving as well . No pleural fluid. Nodules / masses: None significant Bones / body wall: Negative Lower neck / Upper abdomen: Negative IMPRESSION: Improving CHF pattern. Report Dictated By: Trip Moreno MD at 11/03/2017 3:19 PM Report E-Signed By: Trip Moreno MD at 11/03/2017 3:20 PM [id number]
[2017-11-03 16:15] VITALS: BP 110/56
[2017-11-03] MEDS: AZITHROMYCIN(*) 500 MG 500 MG in NS(*) 0.9% 250 ML BAG 250 ML IVPB SCH (21:19)
[2017-11-03] MEDS: FINASTERIDE 5 MG TAB PO SCH (21:21)
[2017-11-03] MEDS: ROSUVASTATIN CALCIUM 10 MG TAB PO SCH (21:21)
[2017-11-04] MEDS: APAP/HYDROCODONE 325/5 TAB PO PRN ×2 (03:55→12:11)
[2017-11-04] MEDS: LEVOTHYROXINE SOD 0.112 MG TAB PO SCH (05:41)
[2017-11-04] MEDS: ALBUTEROL/IPRATROPIUM 3 ML NEB NEB SCH ×3 (05:42→17:21)
[2017-11-04 06:45] LABS: PLATELET COUNT, AUTOMATED 354 K/uL (150-450)
[2017-11-04 07:30] VITALS: BP 95/67
[2017-11-04] MEDS: DOCUSATE SODIUM 100 MG CAP PO SCH ×2 (09:00→20:55)
[2017-11-04] MEDS: RIOCIGUAT 2.5 MG PO SCH ×3 (10:04→20:55)
[2017-11-04] MEDS: CLOPIDOGREL BISULFATE 75MG TAB PO SCH (10:04)
[2017-11-04] MEDS: guaiFENesin 600 MG TABCR PO SCH ×2 (10:05→20:55)
[2017-11-04] MEDS: CARVEDILOL 3.125 MG TAB PO SCH ×2 (10:05→20:56)
[2017-11-04] MEDS: FERROUS SULFATE 325 MG TAB PO SCH ×2 (10:05→12:39)
[2017-11-04] MEDS: PREGABALIN 50 MG CAP PO SCH ×2 (10:05→20:56)
[2017-11-04] MEDS: APIXABAN 2.5 MG TABLET PO SCH ×2 (10:05→20:56)
[2017-11-04] MEDS: CEFEPIME HCL 2 GM VIAL IVP SCH ×2 (10:30→20:54)
[2017-11-04] MEDS: diphenhydrAMINE 25 MG CAP PO PRN (16:41)
[2017-11-04] MEDS ORDERED: FUROSEMIDE 40 MG/4 ML VIAL IVP ONE (16:50)
[2017-11-04 19:00] VITALS: BP 117/67
[2017-11-04] MEDS: ROSUVASTATIN CALCIUM 10 MG TAB PO SCH (20:55)
[2017-11-04] MEDS: AZITHROMYCIN(*) 500 MG 500 MG in NS(*) 0.9% 250 ML BAG 250 ML IVPB SCH (20:55)
[2017-11-04] MEDS: FINASTERIDE 5 MG TAB PO SCH (20:56)
[2017-11-05] MEDS: LEVOTHYROXINE SOD 0.112 MG TAB PO SCH (05:21)
[2017-11-05] MEDS: ALBUTEROL/IPRATROPIUM 3 ML NEB NEB SCH ×3 (05:35→16:42)
[2017-11-05 06:56] LABS: PLATELET COUNT, AUTOMATED 383 K/uL (150-450)
[2017-11-05 07:20] VITALS: BP 113/63
[2017-11-05] MEDS: CEFEPIME HCL 2 GM VIAL IVP SCH ×2 (09:30→21:03)
[2017-11-05] MEDS: CARVEDILOL 3.125 MG TAB PO SCH ×2 (09:31→21:06)
[2017-11-05] MEDS: DOCUSATE SODIUM 100 MG CAP PO SCH ×2 (09:31→21:05)
[2017-11-05] MEDS: APIXABAN 2.5 MG TABLET PO SCH ×2 (09:31→21:06)
[2017-11-05] MEDS: CLOPIDOGREL BISULFATE 75MG TAB PO SCH (09:31)
[2017-11-05] MEDS: PREGABALIN 50 MG CAP PO SCH ×2 (09:31→21:06)
[2017-11-05] MEDS: RIOCIGUAT 2.5 MG PO SCH ×3 (09:31→21:06)
[2017-11-05] MEDS: guaiFENesin 600 MG TABCR PO SCH ×2 (09:31→21:06)
[2017-11-05] MEDS: FERROUS SULFATE 325 MG TAB PO SCH (12:37)
[2017-11-05] MEDS ORDERED: NS(*) 0.9% 1000 ML BAG 1,000 ML IV ONE (14:05)
[2017-11-05 15:18] VITALS: BP 117/63
--- NOTE | 2017-11-05 19:02 | PT ECF NOTE ---
Type of Note: 2 week progress Note Primary Medical Diagnosis: Generalized weakness, Acute on CKD, see EMR for details from [facility] Physical Therapy Evaluation Date: 10/20/17; Progress Note Date: 11/05/17 SUBJECTIVE: [facility]10[facility]16[facility]17, [facility] 10/16/17-10/20/17 Prior Level of Function: Jacy with occasional use of SPC, pt reports history of falls Prior Living Status: Bi-level house, Alone Community Services: Previous use of [facility] services Home Accessibility: One step to enter home, flight of stairs to access second story Equipment Owned: Cane; Portable O2 concentrator Medical Complications/Past Medical History: Complex, see EMR for details Psychosocial Support: None mentioned by patient Pain Scale (0-10): 02/14 OBJECTIVE: Strength: Unable to test due to intense global discomfort ROM: WFL Sensation: diminished light touch sensation to B) distal LEs Other Neuro findings: None noted Bed Mobility: Max/Total assist with use of draw sheet Transfers: Max assist with RW for stand-pivot transfer 90 degrees to W/C Gait: Currently unable to ambulate due to difficulty with pain and motor planning Stairs: Currently unable; had previously been able to complete a full flight with use of portable O2 concentrator. 10 meter walk test (0.6m/second cannot function independently): Currently unable to ambulate ASSESSMENT: Pt has been noted to have a significant decline in ability to participate in therapy, both with respect to increased pain limiting function, and decreased motor planning skills requiring Max/Total assist for basic stand- pivot transfers to W/C and Max/Total assist of 2 for bed mobility and repositioning. Problem List/Current Limitations: Decreased activity jany Decreased strength Decreased balance Generalized weakness Short Term Goals: *Pt had been nearing these goals with anticipated d/c home, until significant decline noted beginning on 11/02/17 extending over the past 4 days. 1: Pt to complete bed mobility with Jacy and HOB flat with no use of bed rail 2: Pt to complete transfers with Jacy and least restrictive AD from a variety of surfaces. 3: Pt to ambulate 600' with Jacy and least restrictive AD 4: Pt to asc/desc flight of stairs with Jacy 5: Pt to demonstrate good safety with O2 tubing management without verbal cues for safety 6: Pt to increase gait speed to 0.8 m/sec to indicate improve in function Blank Driller Goals: Pt to d/c to most supportive environment to address frequent acute medical exacerbations. Patient Goals: Pt would like to strengthen LEs in order to effectively carry groceries up stairs. Rehabilitation Prognosis: Unknown at this time, in light of the recent 4 day episode of significant decline in function and ability to participate in therapy session. Barriers for Discharge: Recurring acute exacerbations of symptoms that are unpredictable. PLAN: The patient will benefit from skilled physical therapy services 5 times per week for 2 weeks including: Therapeutic Exercise Therapeutic Activities Transfer Training Gait Training Stair Training Manual Therapy Safety Training Neuromuscular Re-educ. Pt/Caregiver Training Bed Mobility Thank you for this referral. If you have any questions, concerns, or comments about this report or plan, please contact me at . L. Nicole Anderson, PT, MPT [facility]
[2017-11-05] MEDS: AZITHROMYCIN(*) 500 MG 500 MG in NS(*) 0.9% 250 ML BAG 250 ML IVPB SCH (21:04)
[2017-11-05] MEDS: FINASTERIDE 5 MG TAB PO SCH (21:05)
[2017-11-05] MEDS: ROSUVASTATIN CALCIUM 10 MG TAB PO SCH (21:06)
[2017-11-06] MEDS: LEVOTHYROXINE SOD 0.112 MG TAB PO SCH (05:51)
[2017-11-06] MEDS: ALBUTEROL/IPRATROPIUM 3 ML NEB NEB SCH ×3 (06:01→17:01)
[2017-11-06 06:21] LABS: PLATELET COUNT, AUTOMATED 370 K/uL (150-450)
[2017-11-06 07:30] VITALS: BP 136/67
[2017-11-06] MEDS: CLOPIDOGREL BISULFATE 75MG TAB PO SCH (09:26)
[2017-11-06] MEDS: PREGABALIN 50 MG CAP PO SCH ×2 (09:26→20:26)
[2017-11-06] MEDS: CEFEPIME HCL 2 GM VIAL IVP SCH ×2 (09:26→20:20)
[2017-11-06] MEDS: guaiFENesin 600 MG TABCR PO SCH ×2 (09:26→20:26)
[2017-11-06] MEDS: CARVEDILOL 3.125 MG TAB PO SCH ×2 (09:26→20:26)
[2017-11-06] MEDS: APIXABAN 2.5 MG TABLET PO SCH ×2 (09:27→20:26)
[2017-11-06] MEDS: DOCUSATE SODIUM 100 MG CAP PO SCH ×2 (09:27→20:26)
[2017-11-06] MEDS: RIOCIGUAT 2.5 MG PO SCH ×3 (09:27→20:27)
[2017-11-06] MEDS: FERROUS SULFATE 325 MG TAB PO SCH (13:20)
[2017-11-06 14:45] VITALS: BP 134/66
[2017-11-06] MEDS: FINASTERIDE 5 MG TAB PO SCH (20:26)
[2017-11-06] MEDS: ROSUVASTATIN CALCIUM 10 MG TAB PO SCH (20:27)
[2017-11-06] MEDS: AZITHROMYCIN(*) 500 MG 500 MG in NS(*) 0.9% 250 ML BAG 250 ML IVPB SCH (20:31)
[2017-11-07] MEDS: LEVOTHYROXINE SOD 0.112 MG TAB PO SCH (05:25)
[2017-11-07] MEDS: ALBUTEROL/IPRATROPIUM 3 ML NEB NEB SCH ×3 (06:00→17:02)
[2017-11-07 07:45] VITALS: BP 130/76
[2017-11-07] MEDS: CLOPIDOGREL BISULFATE 75MG TAB PO SCH (09:20)
[2017-11-07] MEDS: PREGABALIN 50 MG CAP PO SCH ×2 (09:20→20:39)
[2017-11-07] MEDS: APIXABAN 2.5 MG TABLET PO SCH ×2 (09:20→20:39)
[2017-11-07] MEDS: DOCUSATE SODIUM 100 MG CAP PO SCH ×2 (09:20→20:38)
[2017-11-07] MEDS: CARVEDILOL 3.125 MG TAB PO SCH ×2 (09:20→20:39)
[2017-11-07] MEDS: guaiFENesin 600 MG TABCR PO SCH ×2 (09:21→20:39)
[2017-11-07] MEDS: RIOCIGUAT 2.5 MG PO SCH ×3 (09:21→20:38)
[2017-11-07] MEDS: CEFEPIME HCL 2 GM VIAL IVP SCH (09:28)
--- NOTE | 2017-11-07 10:40 | Miscellaneous Provider Note ---
Miscellaneous Provider Note Note Mr. Arechiga has become increasingly confused over past several days. He has also developed widespread pruritus and has been scratching to excoriation. His fevers have resolved. His WBC count normalized. His creatinine is slightly improved. He has now developed some asymmetric swelling in his right buttock/ hip with some associated pain. He has had episodic swelling involving his other extremities as well. Will check x-rays of his right hip as well as ultrasound venogram. Will try to reduce any medications which could be contributing to confusion. He may be reacting to the antibiotics as well. He has received approximately one week of therapy, so will now stop the cefepime and azithromycin. Will plan on re-checking labs as well. Watch closely. RONDA GARCIA MD Nov 07, 2017 10:40
[2017-11-07] MEDS: FERROUS SULFATE 325 MG TAB PO SCH (11:45)
[2017-11-07] MEDS: APAP/HYDROCODONE 325/5 TAB PO PRN (11:45)
[2017-11-07] MEDS: MOISTURIZING CREAM 120 GM JAR TP PRN (11:46)
--- NOTE | 2017-11-07 13:20 | RADIOLOGY IMAGING REPORT ---
[place] [facility] [place] Meño Arechiga : 1940 MR: [id number] V: [id number] EXAM DATE: ORDERING PHYSICIAN: RONDA GARCIA TECHNOLOGIST: Location: [facility] Patient: Meño Arechiga : 1940 Visit/Account:[id number] Date of Sevice: 11/07/2017 Technique: CHEST SINGLE AP HISTORY: hypoxia/CHF/recent pneumonia Comparison studies: Chest radiograph November 03, 2017 FINDINGS: Redemonstrated is central vascular congestion. This is slightly worsened from the compariso n exam. The cardiomediastinal silhouette is unchanged. IMPRESSION: 1. Slight worsening pulmonary edema. Report Dictated By: Satish Stoll DO at 11/07/2017 1:15 PM Report E-Signed By: Satish Stoll DO at 11/07/2017 1:17 PM WSN:[id number]
--- NOTE | 2017-11-07 13:22 | RADIOLOGY IMAGING REPORT ---
FACILITY: [facility] PATIENT NAME: Meño Arechiga : 1940 MR: [id number] V: [id number] EXAM DATE: ORDERING PHYSICIAN: RONDA GARCIA TECHNOLOGIST: Location: [facility] Patient: Meño Arechiga : 1940 Visit/Account:[id number] Date of Sevice: 11/07/2017 Technique: HIP RIGHT HISTORY: right hip pain Comparison studies: None FINDINGS: There is no acute fracture. The alignment of the right hip is maintained. There are degener ative changes noted within the bilateral hips. Specifically within the right hip there is joint space narrowing and marginal osteophytosis. Dense atherosclerotic changes are present. A vascular stent ov erlies the left upper pelvis. IMPRESSION: 1. No acute osseous process. 2. Degenerative and incidental findings as above. Report Dictated By: Satish Stoll DO at 11/07/2017 1:17 PM Report E-Signed By: Satish Sotll DO at 11/07/2017 1:19 PM WSN:[id number]
[2017-11-07] MEDS ORDERED: FUROSEMIDE 40 MG TAB PO ONE (13:45)
--- NOTE | 2017-11-07 14:03 | RADIOLOGY IMAGING REPORT ---
FACILITY: [facility] - [place], [place] PATIENT NAME: Meño Arechiga : 1940 MR: [id number] V: [id number] EXAM DATE: ORDERING PHYSICIAN: RONDA GARCIA TECHNOLOGIST: Location: [facility] [place] Patient: Meño Arechiga : 1940 Visit/Account:[id number] Date of Sevice: 11/07/2017 EXAMINATION: VENOUS DOPP LOW RIGHT EXTREMIT COMPARISON: 04/09/2017 HISTORY: Right leg pain, swelling, and redness. FINDINGS: Standard right lower extremity Doppler ultrasound with color flow and spectral analysis is performed. The common femoral, femoral, and popliteal veins are widely patent and compress appropriately. The v isualized calf veins and the proximal greater saphenous vein are patent. No popliteal fluid collection. The contralateral common femoral vein is patent. IMPRESSION: No right lower extremity deep venous thrombosis. Report Dictated By: Dariel Hernandez MD at 11/07/2017 1:59 PM Report E-Signed By: Dariel Hernandez MD at 11/07/2017 2:00 PM WSN:[id number]
[2017-11-07 16:30] VITALS: BP 104/57
[2017-11-07] MEDS: FINASTERIDE 5 MG TAB PO SCH (20:39)
[2017-11-07] MEDS: ROSUVASTATIN CALCIUM 10 MG TAB PO SCH (20:39)
--- NOTE | 2017-11-07 20:54 | RADIOLOGY IMAGING REPORT ---
FACILITY: [facility] - [place] PATIENT NAME: Meño Arechiga : 1940 MR: [id number] V: [id number] EXAM DATE: ORDERING PHYSICIAN: RONDA GARCIA TECHNOLOGIST: Location: [facility] - [place], [place] Patient: Meño Arechiga : 1940 Visit/Account:[id number] Date of Sevice: 11/07/2017 EXAMINATION: CT abdomen and pelvis without IV contrast HISTORY: Right buttock pain/edema. Query hematoma. TECHNIQUE: Axial CT images of the abdomen and pelvis were obtained without IV contrast, with haque l and sagittal 2D reconstructed images. One of the following dose optimization techniques was utilized in the performance of this exam: Autom ated exposure control; adjustment of the mA and/or kV according to the patient's size; or use of an i terative reconstruction technique. Specific details can be referenced in the facility's radiology C T exam operational policy. COMPARISON: 05/24/2017. FINDINGS: Evaluation of the solid and viscus parenchymal organs is limited without the benefit of IV contrast. Image quality is also partially degraded by patient motion artifact. Liver: Calcified granulomas in the liver. Stable hepatic morphology with relatively small size of th e right hepatic lobe which could be due to atrophy or prior surgery. Gallbladder and bile ducts: Cholecystectomy. Spleen: Surgically absent. Pancreas: Negative. Adrenal glands: Negative. Kidneys: Small hypodense foci in both kidneys correspond with small cysts on the prior contrast-enha nced study. No urinary calculi or hydronephrosis. There is symmetric nonspecific perinephric strandin g bilaterally. Bowel and peritoneum: Small bowel and colon are normal in caliber. No evidence of obstruction. Moder ate volume of colonic stool. No free fluid or free intraperitoneal air. Pelvic structures: Moderate prostatic enlargement with prior TURP defect. Lymph node assessment: Negative. Vessels: Extensive vascular calcifications. Normal caliber abdominal aorta. Musculoskeletal/body wall: No acute osseous findings. Multilevel degenerative changes in the spine, w ith stable chronic osseous irregularity of the endplates at the L4-L5 and L5-S1 interspaces. There is diffuse edema along the subcutaneous soft tissues of the abdomen and pelvis, with some relat simi increased asymmetric subcutaneous edema and soft tissue stranding along the lateral right pelvis and proximal right thigh. No discrete hematoma or fluid collection along the right buttock or soft ti ssues of the pelvis. Lung bases: Small bilateral layering pleural effusions, with adjacent atelectasis in the lung bases. IMPRESSION: 1. No localized hematoma or fluid collection along the right buttock. 2. There is nonspecific edema along the subcutaneous soft tissues of the abdomen and pelvis, with rel ative asymmetric increased involvement along the lateral right pelvis and visualized upper right thig h. 3. No acute intra-abdominal findings by noncontrast CT imaging. Additional nonacute findings as descr ibed. Report Dictated By: Gomez Reese MD at 11/07/2017 8:37 PM Report E-Signed By: Gomez Reese MD at 11/07/2017 8:51 PM WSN:[id number]
[2017-11-08] MEDS: LEVOTHYROXINE SOD 0.112 MG TAB PO SCH (05:42)
[2017-11-08] MEDS: ALBUTEROL/IPRATROPIUM 3 ML NEB NEB SCH ×3 (06:08→16:57)
[2017-11-08 06:09] LABS: PLATELET COUNT, AUTOMATED 388 K/uL (150-450)
[2017-11-08 08:07] VITALS: BP 109/51
[2017-11-08] MEDS: CLOPIDOGREL BISULFATE 75MG TAB PO SCH (08:53)
[2017-11-08] MEDS: DOCUSATE SODIUM 100 MG CAP PO SCH ×2 (08:53→20:49)
[2017-11-08] MEDS: APIXABAN 2.5 MG TABLET PO SCH ×2 (08:53→20:50)
[2017-11-08] MEDS: FUROSEMIDE 40 MG TAB PO SCH (08:53)
[2017-11-08] MEDS: CARVEDILOL 3.125 MG TAB PO SCH ×2 (08:53→20:50)
[2017-11-08] MEDS: PREGABALIN 50 MG CAP PO SCH ×2 (08:53→20:50)
[2017-11-08] MEDS: RIOCIGUAT 2.5 MG PO SCH ×3 (08:54→20:49)
[2017-11-08] MEDS: guaiFENesin 600 MG TABCR PO SCH ×2 (08:54→20:50)
[2017-11-08] MEDS: FERROUS SULFATE 325 MG TAB PO SCH (12:03)
--- NOTE | 2017-11-08 14:39 | Medical Nutrition Therapy ---
Nutrition Anthropometrics Height (Inches): 66.00 Height (Calculated Centimeters: 167.550848 Weight (Pounds): 157 Weight (Calculated Kilograms): 71.214 Christiano Nutrition Score: Probably Inadequate Christiano Nutrition Risk Score: 14 Dietary Referral Nutrition Risk Factors: Nutrition Risk Comment: Physical Findings Physical Appearance: BMI 23.9 Skin Appearance Skin Appearance: Edema Edema Location Modifier: Right Edema Location: Hip Type of Edema: Degree of Edema: 1+ Gastrointestinal Symptoms GI Symtoms: Tube Present: Bowel Sounds: Recent Bowel Pattern: Stool Characteristics: Nutritional Diagnosis Nutritional Risk Acuity 2: Chronic Renal Failure (with acute renal injury) Nutritional Risk Acuity 3: Fair Appetite, Nutrit Anemia (iron def. anemia ), Cancer (multiple myeloma), GERD Past Medical History: Pulmonary embolism, GERD, CHF, dyslipidemia, weakness, DVT, Acute renal failure, multiple myeloma, CAD, iron deficiency anemia Nutritional Acuity: 2-Moderate Nutrition Diagnosis: Increased Nutrient Needs Nutrition Etiology: Physiological Causes Nutrition Problem/Etiology/Sym: Increase nutrient needs realted to physiological causes AEB decrease in activity per OT note (10/20) and weakness. Energy Requirement: 1743 ([place] [address] 1341 X Af 1.3 = 1743kcal/day) Adjusted Energy Requirement Re: 67 (1g/kg 1 X 67.132) Fluid Requirement: 1675 (> 75 yrs 25ml/kg 25X67.132) Diet Type: Diet as Tolerated CABRERA/REG Nutrition Intervention: Cont diet as ordered, Encourage intake Drug: Diuretics Food Likes: open face turkey sand with mpg on top Nutrition Monitoring & Eval Nutrition Goals: Eat 75-100% Meal RD Patient Assessment Time: [address] Assessment Type: RD Re-Assessment Patient Nutrition Acuity: 2-Moderate Follow Up Date: Nov 16, 2017 Nutritional Comment: 10/21 Pt was admitted for weakness with an extensive past medical history of Chronic venous insufficiency with edema, CHF and CAD. Pt states his whole body aches and had chest pain (10/16). Yesterday pt was sent to [facility] for medical observations. states that pt is at risk for cardiac catheter. Pt is on CABRERA/REG diet with oral intake of 100%. However, pt may benefit from CHF diet due his medical history. Notable labs indicate elevated BUN 26. Continue to monitor pt and encourage intake. MT 10/25 Pt continues on CABRERA/REG diet with 100% oral intake. There are no concerns lab at this time. OT note (10/20) states the pt has decrease in activity and still is weak. Continue to monitor pt progress and encourage intake to help meet energy needs. MT 10/31 Pt on CABRERA and eating 100% of meals. Pt has dx acute renal failure superimposed on CKD. Creatinine is currently WNR at 1.1. BUN cont elevated at 34. Alb improved slightly at 2.7 but may be low r/t non-pitting an 1+ edema LE. Pt is recieving lasix. K+ is WNR at 4.3. Wt is up 5.4% possibly r/t edema. Will cont to monitor and encourage intake. 11/08 Pt continues on CABRERA/REG with 25% oral intake. Pt also refuses snack when offered. H/H are low and pt is put on an iron supplement for iron deficiency anemia. Creatinine is elevated (1.3), but has decreased over the past several days. Alb is slightly low (2.6) and has 1# wt gain since last note (10/31) may be low related to asymmetric swelling in buttock/hip. Continue to monitor pt progress and encourage intake. MT MARSHAL BONILLA Nov 08, 2017 08:31
[2017-11-08] MEDS: APAP/HYDROCODONE 325/5 TAB PO PRN (14:42)
[2017-11-08 15:45] VITALS: BP 116/75
[2017-11-08] MEDS: ROSUVASTATIN CALCIUM 10 MG TAB PO SCH (20:49)
[2017-11-08] MEDS: MOISTURIZING CREAM 120 GM JAR TP PRN (20:50)
[2017-11-08] MEDS: FINASTERIDE 5 MG TAB PO SCH (20:50)
[2017-11-09] MEDS: ALBUTEROL/IPRATROPIUM 3 ML NEB NEB SCH ×3 (05:33→17:00)
[2017-11-09 07:15] VITALS: BP 121/65
[2017-11-09] MEDS: CARVEDILOL 3.125 MG TAB PO SCH ×2 (08:53→20:18)
[2017-11-09] MEDS: PREGABALIN 50 MG CAP PO SCH ×2 (08:53→20:19)
[2017-11-09] MEDS: guaiFENesin 600 MG TABCR PO SCH ×2 (08:54→20:19)
[2017-11-09] MEDS: FUROSEMIDE 40 MG TAB PO SCH (08:54)
[2017-11-09] MEDS: LEVOTHYROXINE SOD 0.112 MG TAB PO SCH (08:54)
[2017-11-09] MEDS: CLOPIDOGREL BISULFATE 75MG TAB PO SCH (08:55)
[2017-11-09] MEDS: RIOCIGUAT 2.5 MG PO SCH ×3 (08:55→20:18)
[2017-11-09] MEDS: APIXABAN 2.5 MG TABLET PO SCH ×2 (08:55→20:19)
[2017-11-09] MEDS: DOCUSATE SODIUM 100 MG CAP PO SCH ×3 (08:55→20:18)
[2017-11-09] MEDS: FERROUS SULFATE 325 MG TAB PO SCH (13:01)
[2017-11-09 17:25] VITALS: BP 113/79
[2017-11-09] MEDS: ROSUVASTATIN CALCIUM 10 MG TAB PO SCH (20:18)
[2017-11-09] MEDS: FINASTERIDE 5 MG TAB PO SCH (20:18)
[2017-11-10] MEDS: LEVOTHYROXINE SOD 0.112 MG TAB PO SCH (05:59)
[2017-11-10] MEDS: ALBUTEROL/IPRATROPIUM 3 ML NEB NEB SCH ×3 (05:59→17:01)
[2017-11-10 08:54] VITALS: BP 115/71
[2017-11-10] MEDS: RIOCIGUAT 2.5 MG PO SCH ×3 (08:58→20:29)
[2017-11-10] MEDS: DOCUSATE SODIUM 100 MG CAP PO SCH ×4 (08:58→20:41)
[2017-11-10] MEDS: CARVEDILOL 3.125 MG TAB PO SCH ×2 (08:58→20:29)
[2017-11-10] MEDS: PREGABALIN 50 MG CAP PO SCH ×2 (08:59→20:29)
[2017-11-10] MEDS: FUROSEMIDE 40 MG TAB PO SCH (08:59)
[2017-11-10] MEDS: CLOPIDOGREL BISULFATE 75MG TAB PO SCH (08:59)
[2017-11-10] MEDS: APIXABAN 2.5 MG TABLET PO SCH ×2 (08:59→20:29)
[2017-11-10] MEDS: guaiFENesin 600 MG TABCR PO SCH ×2 (08:59→20:29)
[2017-11-10] MEDS: FERROUS SULFATE 325 MG TAB PO SCH (12:42)
[2017-11-10 14:01] LABS: PLATELET COUNT, AUTOMATED 476 K/uL (150-450)
[2017-11-10] MEDS: TRIAMCINOLONE ACE 0.1% CR 80GM TP SCH ×2 (14:10→20:28)
--- NOTE | 2017-11-10 14:20 | Hospitalist Progress Note ---
Physical Exam Vital Signs Date Time Temp Pulse Resp B/P (MAP) Pulse Ox O2 Delivery O2 Flow Rate FiO2 11/10/17 12:44 70 Room Air 11/10/17 11:15 6.0 11/10/17 08:54 97.7 108 17 115/71 (86) Intake and Output 11/11/17 06:59 Intake Total 600 ml Balance 600 ml Intake Oral 600 ml # Voids 1 # Bowel Movements 2 Result Diagram: 11/08/17 0541 11/08/17 0541 Assessment and Plan Problems: (1) Pneumonia Status: Acute Assessment & Plan: It appeared he had a RML/RLL pneumonia on CXR. He was placed on IV antibiotics for coverage of possible hospital acquired pneumonia with Cefepime, but azithromycin added when he developed fever to broaden coverage. Lactate performed 11/02 within normal limits, WBC increased to 13.7 but has normalized. His dermatitis became more symptomatic on antibiotics and these were stopped on day 8. He has continued to be afebrile. Will repeat labs. Encouraged him to be out of bed several times a day. He will get nebulizers and flutter therapy. Still requiring 6L O2. Echocardiogram done but no result available yet. BNP ordered. (2) Generalized weakness Status: Acute Assessment & Plan: The patient's generalized weakness is multifactorial. He is improving with PT/OT. (3) IRON DEFICIENCY ANEMIA, UNSPECIFIED Status: Chronic Assessment & Plan: The patient is on iron supplements. He has history of gastric ulcers. His hemoglobin was lower today on lab work but not considerably different than what was reported during his stay at [facility]. He has not had evidence of gross GI blood loss. Stool for occult blood was positive. VSS. Will repeat labs today. (4) Cellulitis and abscess of left leg Status: Resolved Assessment & Plan: The patient was treated for acute cellulitis of the LLE while at [facility]. He was sent to ECF on doxycycline and has completed his course of therapy. He continues to have dry scaly skin and chronic venous stasis changes, but has no evidence of infection currently. (5) Acute kidney injury superimposed on CKD Status: Acute Assessment & Plan: Creatinine is 1.7. BUN is elevated. He is on Lasix. Will monitor labs periodically. (6) PVD (peripheral vascular disease) Status: Chronic Assessment & Plan: Continue apixaban and add Plavix per cardiology ([facility]). (7) Pulmonary hypertension Status: Chronic Assessment & Plan: Continue Admepas 2.5mg tid. Cardiology at [facility] recommended the patient be seen at [facility] for ongoing severe pulmonary HTN despite treatment. (8) NSTEMI (non-ST elevated myocardial infarction) Status: Acute Assessment & Plan: The patient was transferred from [facility] medical floor to [facility] with ischemic changes on EKG and elevation of his troponin. Cardiology at [facility] evaluated the patient and recommended medical management. ASA was stopped and Plavix was added to his apixaban. His chest pain resolved and his troponins stabilized while at [facility] and he was transferred to [facility] for rehabilitation. 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 He is HLA-B27 positive. He is unable to take NSAIDs. Will continue pain medications as needed. His CRP has been elevated. (10) CAD (coronary artery disease) Status: Chronic Assessment & Plan: He has multiple LYNDSEY, 2 in his L circumflex and 3 in his RCA. He has a hx of diastolic dysfunction as well. (11) Atrial flutter Status: Chronic Assessment & Plan: On chronic anticoagulation. Rate was controlled on carvedilol. HR is up today. May be due to Lasix/dehydration. Lab work ordered. (12) DVT (deep venous thrombosis) Status: Chronic Assessment & Plan: Recurrent. He is on chronic anticoagulation as above. (13) Chronic respiratory failure Status: Chronic Assessment & Plan: He wears O2 at home. He has a long history of smoking was stopped many years ago. (14) Dyslipidemia Status: Chronic Assessment & Plan: Continue Crestor 40mg daily. (15) GERD (gastroesophageal reflux disease) Status: Chronic Assessment & Plan: Continue pantoprazole. See below (gastric ulcer). (16) Hypothyroid Status: Chronic Assessment & Plan: Continue levothyroxine. (17) Multiple myeloma Status: Chronic Assessment & Plan: Indolent per the patient. (18) Anxiety and depression Status: Chronic Assessment & Plan: Continue Zolpidem prn. Will DC alprazolam as this appears to make him quite drowsy if given during the day. (19) Superficial perivascular dermatitis Status: Chronic Assessment & Plan: The patient reports dermatitis for many years that waxes and wanes. He had a biopsy at [facility] in August of this year that showed perivascular dermatitis. Treatment is to try to avoid things that exacerbate the issue. Can use topical steroids. Will try doxepin at HS for itching to see if this helps. TAC 0.1% cream bid prn. Soda linens and hypoallergenic soaps and lotions ordered. (20) Gastric ulcer Status: Chronic Assessment & Plan: Per Dr. Yarbrough's office notes, the patient has history of gastric ulcer and is supposed to be on pantoprazole bid. Will order this bid. Time Spent on Plan of Care: < 30 min Heart Failure Ejection Fraction %: 60 RVSP (mmHg): 82 NYHA Class: II Is Patient on MAHI Inhibitor?: No Is Patient on Beta Jigar?: Yes Problem Qualifiers (1) Multiple myeloma: Multiple myeloma remission status: unspecified Qualified Codes: C90.00 - Multiple myeloma not having achieved remission SIERRA GARCIA MD Nov 10, 2017 14:20
--- NOTE | 2017-11-10 14:55 | Miscellaneous Provider Note ---
Miscellaneous Provider Note Note Echo report faxed to floor (not in EMR). Results: LV hyperdynamic. Flattened septum c/w RV volume and pressure overload. RV systolic fxn reduced.RV enlarged. Severe pHTN. EF estimated at >70%. No significant change from previous. SIERRA GARCIA MD Nov 10, 2017 14:54
--- NOTE | 2017-11-10 17:15 | EKG ---
FACILITY: [facility] - [place] PATIENT NAME: BEKAH DAVIS : [id number] MR: [id number] V: [id number] EXAM DATE: ORDERING PHYSICIAN: SIERRA GARCIA TECHNOLOGIST: ANAND Thompson Reason : Blood Pressure : / mmHG Vent. Rate : 078 BPM Atrial Rate : 234 BPM P-R Int : 000 ms QRS Dur : 112 ms QT Int : 416 ms P-R-T Axes : 059 113 -79 degrees QTc Int : 474 ms Atrial flutter with variable AV block with premature ventricular or aberrantly conducted complexes Right axis deviation Nonspecific interventricular conduction delay Diffuse ST-T findings Prolonged QT Abnormal ECG Confirmed by RONDA GARCIA ([id number]) on 11/11/2017 6:09:50 AM Referred By: JOSE Confirmed By:RONDA GARCIA
[2017-11-10 17:35] VITALS: BP 98/64
[2017-11-10] MEDS: DOXEPIN HCL 10 MG CAP PO SCH (20:29)
[2017-11-10] MEDS: FINASTERIDE 5 MG TAB PO SCH (20:29)
[2017-11-10] MEDS: ROSUVASTATIN CALCIUM 10 MG TAB PO SCH (20:29)
[2017-11-10] MEDS: LOPERAMIDE HCL 2 MG CAP PO PRN (22:15)
[2017-11-11] MEDS: ALBUTEROL/IPRATROPIUM 3 ML NEB NEB SCH ×3 (05:25→17:28)
[2017-11-11] MEDS: LEVOTHYROXINE SOD 0.112 MG TAB PO SCH (05:30)
[2017-11-11 08:35] VITALS: BP 100/62
[2017-11-11] MEDS: DOCUSATE SODIUM 100 MG CAP PO SCH ×2 (09:00→20:24)
[2017-11-11] MEDS: RIOCIGUAT 2.5 MG PO SCH ×3 (09:05→20:24)
[2017-11-11] MEDS: TRIAMCINOLONE ACE 0.1% CR 80GM TP SCH ×2 (09:05→20:23)
[2017-11-11] MEDS: APIXABAN 2.5 MG TABLET PO SCH ×2 (09:06→20:24)
[2017-11-11] MEDS: CARVEDILOL 3.125 MG TAB PO SCH ×2 (09:06→20:24)
[2017-11-11] MEDS: PREGABALIN 50 MG CAP PO SCH ×2 (09:07→20:24)
[2017-11-11] MEDS: guaiFENesin 600 MG TABCR PO SCH ×2 (09:07→20:24)
[2017-11-11] MEDS: CLOPIDOGREL BISULFATE 75MG TAB PO SCH (09:07)
[2017-11-11] MEDS: FUROSEMIDE 40 MG TAB PO SCH (09:07)
[2017-11-11] MEDS: PANTOPRAZOLE SOD 40 MG TABEC PO SCH (09:08)
--- NOTE | 2017-11-11 10:58 | SLP EVALUATION SUMMARY REPORT ---
INITIAL SPEECH THERAPY EVALUATION REPORT Cognitive Communication Assessment Patient Name: Meño Arechiga Date of Evaluation: 11/11/2017 Patient : 1940 Clinician: Louise Godinez M.S., [facility] Treatment Dx: Mild cognitive impairment BACKGROUND The patient is a 76 year old male with complex course of hospitalization, initially admitted to [facility] w/ complaints of unsteady gait, generalized pain, weakness, and failure to thrive. Please see EMR for detailed information. Pt was first evaluated by ST services on 10/25 after transfer to the extended care unit following course of hospitalization. Cognitive communicative status was deemed WFL at that time. Pt was expected to d/c on 10/29 with services; however, he developed a low grade fever, increased O2 needs, and RM/RLL pneumonia. Pt also w/ significantly increased weakness and confusion over the past several days, which may be a result of generalized decline in health status in addition to a negative reaction to medication regimen. Pt has been referred for re-evaluation of cognitive communicative status due to staff reports of increased confusion and decreased safety awareness w/ impulsive behaviors observed over the past several days. SPEECH: WFL. VOICE: WFL. DYSPHAGIA: WFL. Screened again w/ thins via straw and cup sip. No c/o dysphagia. LANGUAGE/COGNITION [facility] Mental Status examination (UMS) was re- administered with the following results: -SLUMS Total Score (TS): 23/30. Mild cognitive deficits. (prior overall score was 27/30.) -Cognitive Domains Demonstrating Deficits: visuospatial/executive function skills (clock drawin/4), semantic fluency/thought organization (animal namin/3), and working memory (calculation task: 1/3; digit reversal: 0/2) -Cognitive Domains Demonstrating Strength: attention, orientation, immediate memory, short-term memory. SUMMARY Pt presents with mild cognitive communicative deficits most notably characterized by decline in working memory status in comparison to results obtained on 10/25. All other domains remain consistent w/ baseline performance. Pt w/ very poor insight re: areas of impairment, whereas he previously exhibited evident frustration as a result of mild errors during assessment procedures. Decreased awareness of cognitive communicative deficits may negatively impact adherence to safety precautions, limit potential for safe decision making, and decrease safe completion of IADL tasks (med management, director of student financial aid, execution of complex instructions for safety and medical purposes). ST will follow for cognitive linguistic therapy to address safety, insight, and working memory. RECOMMENDATIONS 1. ST 3x/wk PROGNOSIS: Good. Pt w/ high PLOF, high motivation to return to prior living environment. Negative prognostic indicator may include high level of variability observed in cognitive communicative status. PLAN OF CARE Short Term Goals 1. The patient will utilize working memory strategies during 90% of opportunities with min verbal/visual cues to support capacity for new learning and improve active role in medical POC. 2. The patient will demonstrate appropriate decision making and safety awareness skills during participation in functional activities of daily living with 90% accuracy and without the need for assistance. Long-Term Goals 1. The patient will demonstrate functional cognitive communication status for safety and maximized independence upon anticipated d/c to home environment w/ appropriate access to home and community resources. Thank you for this referral. Call [phone] Louise Godinez M.S., CCC[facility] [*] DAVID
[2017-11-11] MEDS: LOPERAMIDE HCL 2 MG CAP PO PRN (11:34)
[2017-11-11] MEDS: FERROUS SULFATE 325 MG TAB PO SCH (12:34)
--- NOTE | 2017-11-11 13:33 | OT INITIAL EVALUATION ---
Type of Note: Initial Note Primary Medical Diagnosis: Generalized weakness Occupational Therapy Evaluation Date: 11/11/2017 SUBJECTIVE: Prior Hospitalization: IM 10/15/17 thru 10/16/17. [facility] 10/16/17 thru 10/20/17; was D/C 10/29/2017 on ECF due to meeting goals. Prior Level of Function: Independent with ADLs and IADLs. Home Instead 1x/ week for assist with any needs Prior Living Status: Bi-level house, Alone Community Services: Home Accessibility: Stairs with rails, Walk-in shower Equipment Owned: [employer]. No other equipment. Medical Complications/Past Medical History: Please refer to EMR Psychosocial Support: Limited psychosocial report Pain Scale (0-10): None reported at time of evaluation OBJECTIVE: Strength: MMT: Right Left Shoulder Flexion WFL WFL Elbow Flexion WFL WFL Wrist Extension WFL WFL Car Deliverer WFL WFL (5= normal, 4= good, 3= fair, 2= poor, 1= trace) ROM: Both upper extremities, WFL Sensation: Neuropathy in B LE Functional Transfer: Assistive Device: Front wheeled walker, Gait belt Transfer Ability: unable to assess properly as patient refused to get up with OT services and was difficult to keep awake and alert ADL: Upper body dressing: Assistive device: None Upper body dressing ability: refused to get dressed during this evaluation Lower body dressing: Assistive device: May benefit from LB AE education Lower body dressing ability: refused to get dressed during this evaluation Toileting: Assistive device: None Toileting ability: SBA Grooming/hygiene: Assistive device: Grooming ability: N/T Bathing: Assistive device: Bathing ability: N/T Standardized Assessment: Stacie Index of Activities of Daily Livin/20 ASSESSMENT: Patient was doing better during his stay and OT services D/C patient on 10/29/2017. Patient then medically was not doing well so OT services were re-ordered. Patient was very drowsy and difficult to maintain alertness during this evaluation. He needed v/c to stay awake. Patient did refused to participate in any treatment with OT services this date. Patient is being recommended for senior living placement, but OT services will provide patient with therapy while on ECF to work on independence with self cares. Problem List/Current Limitations: Pain Decreased activity tolerance Generalized weakness Short Term Goals: 1) Pt will be Mod (I) UB/LB dressing. 2) Pt will be Independent grooming/hygiene. 3) Pt will demonstrate good endurance for independent standing shower task. 4) Pt will be Independent toileting. 5) Pt Stacie Index of ADLs will increase by 2 points. 6) Pt will be educated on appropriate energy conservation and adaptive methods for ADLs/IADLs. Nursing Scheduler Goals: Patient is aware that he needs senior living placement Patient Goals: "I have a nice home, but it looks like I can't go back there again, I just want things to get back to how they were before" Rehabilitation Prognosis: Good-Fair Barriers to Discharge: Medical hx, adherence to recommendations and education PLAN: The patient will benefit from skilled occupational therapy services 5 times per week for 2 weeks including: Ther ex ADL training Safety training Ther act IADL training Transfer training Adaptive equip training Bed mobility Energy conservation Thank you for this referral. If you have any questions, concerns, or comments about this report or plan, please contact me at . CHARD
[2017-11-11 16:45] VITALS: BP 116/71
[2017-11-11] MEDS: DOXEPIN HCL 10 MG CAP PO SCH (20:23)
[2017-11-11] MEDS: FINASTERIDE 5 MG TAB PO SCH (20:23)
[2017-11-11] MEDS: ROSUVASTATIN CALCIUM 10 MG TAB PO SCH (20:24)
[2017-11-12] MEDS: ALBUTEROL/IPRATROPIUM 3 ML NEB NEB SCH ×3 (05:40→16:59)
[2017-11-12] MEDS: LEVOTHYROXINE SOD 0.112 MG TAB PO SCH (06:00)
[2017-11-12] MEDS: DOCUSATE SODIUM 100 MG CAP PO SCH ×2 (09:00→20:36)
[2017-11-12] MEDS: CARVEDILOL 3.125 MG TAB PO SCH ×2 (09:10→20:34)
[2017-11-12] MEDS: RIOCIGUAT 2.5 MG PO SCH ×3 (09:10→20:35)
[2017-11-12] MEDS: TRIAMCINOLONE ACE 0.1% CR 80GM TP SCH ×2 (09:10→20:36)
[2017-11-12] MEDS: guaiFENesin 600 MG TABCR PO SCH ×2 (09:10→20:32)
[2017-11-12] MEDS: FUROSEMIDE 40 MG TAB PO SCH (09:10)
[2017-11-12] MEDS: APIXABAN 2.5 MG TABLET PO SCH ×2 (09:11→20:34)
[2017-11-12] MEDS: PREGABALIN 50 MG CAP PO SCH ×2 (09:11→20:34)
[2017-11-12] MEDS: PANTOPRAZOLE SOD 40 MG TABEC PO SCH (09:11)
[2017-11-12] MEDS: CLOPIDOGREL BISULFATE 75MG TAB PO SCH (09:11)
[2017-11-12 09:42] VITALS: BP 105/63
[2017-11-12] MEDS: FERROUS SULFATE 325 MG TAB PO SCH (13:13)
[2017-11-12 17:30] VITALS: BP 114/69
[2017-11-12] MEDS: ROSUVASTATIN CALCIUM 10 MG TAB PO SCH (20:33)
[2017-11-12] MEDS: DOXEPIN HCL 10 MG CAP PO SCH (20:33)
[2017-11-12] MEDS: FINASTERIDE 5 MG TAB PO SCH (20:34)
[2017-11-13] MEDS: LEVOTHYROXINE SOD 0.112 MG TAB PO SCH (05:19)
[2017-11-13] MEDS: ALBUTEROL/IPRATROPIUM 3 ML NEB NEB SCH ×3 (05:29→16:47)
[2017-11-13 07:44] VITALS: BP 111/64
[2017-11-13] MEDS: TRIAMCINOLONE ACE 0.1% CR 80GM TP SCH ×3 (09:00→21:00)
[2017-11-13] MEDS: CLOPIDOGREL BISULFATE 75MG TAB PO SCH (09:17)
[2017-11-13] MEDS: PREGABALIN 50 MG CAP PO SCH ×2 (09:17→20:39)
[2017-11-13] MEDS: PANTOPRAZOLE SOD 40 MG TABEC PO SCH (09:17)
[2017-11-13] MEDS: CARVEDILOL 3.125 MG TAB PO SCH ×2 (09:17→20:39)
[2017-11-13] MEDS: guaiFENesin 600 MG TABCR PO SCH ×2 (09:17→20:39)
[2017-11-13] MEDS: DOCUSATE SODIUM 100 MG CAP PO SCH ×2 (09:18→20:39)
[2017-11-13] MEDS: APIXABAN 2.5 MG TABLET PO SCH ×2 (09:18→20:38)
[2017-11-13] MEDS: FUROSEMIDE 40 MG TAB PO SCH (09:18)
[2017-11-13] MEDS: RIOCIGUAT 2.5 MG PO SCH ×3 (09:19→20:38)
[2017-11-13] MEDS: FERROUS SULFATE 325 MG TAB PO SCH (12:03)
[2017-11-13 15:38] VITALS: BP 99/59
[2017-11-13] MEDS: ROSUVASTATIN CALCIUM 10 MG TAB PO SCH (20:38)
[2017-11-13] MEDS: DOXEPIN HCL 10 MG CAP PO SCH (20:38)
[2017-11-13] MEDS: FINASTERIDE 5 MG TAB PO SCH (20:39)
[2017-11-14] MEDS: ALBUTEROL/IPRATROPIUM 3 ML NEB NEB SCH ×3 (05:41→17:06)
[2017-11-14] MEDS: LEVOTHYROXINE SOD 0.112 MG TAB PO SCH (06:11)
[2017-11-14 07:35] VITALS: BP 119/70
[2017-11-14] MEDS: DOCUSATE SODIUM 100 MG CAP PO SCH ×2 (08:53→21:00)
[2017-11-14] MEDS: CLOPIDOGREL BISULFATE 75MG TAB PO SCH (08:54)
[2017-11-14] MEDS: CARVEDILOL 3.125 MG TAB PO SCH ×2 (08:54→21:08)
[2017-11-14] MEDS: FUROSEMIDE 40 MG TAB PO SCH (08:55)
[2017-11-14] MEDS: PREGABALIN 50 MG CAP PO SCH ×2 (08:55→21:09)
[2017-11-14] MEDS: RIOCIGUAT 2.5 MG PO SCH ×3 (08:55→21:09)
[2017-11-14] MEDS: APIXABAN 2.5 MG TABLET PO SCH ×2 (08:55→21:09)
[2017-11-14] MEDS: PANTOPRAZOLE SOD 40 MG TABEC PO SCH (08:55)
[2017-11-14] MEDS: guaiFENesin 600 MG TABCR PO SCH ×2 (08:55→21:08)
[2017-11-14] MEDS: TRIAMCINOLONE ACE 0.1% CR 80GM TP SCH ×2 (08:56→21:09)
[2017-11-14] MEDS: FERROUS SULFATE 325 MG TAB PO SCH (12:44)
[2017-11-14 16:57] VITALS: BP 117/61
[2017-11-14] MEDS: APAP/HYDROCODONE 325/5 TAB PO PRN (19:29)
[2017-11-14] MEDS: FINASTERIDE 5 MG TAB PO SCH (21:08)
[2017-11-14] MEDS: DOXEPIN HCL 10 MG CAP PO SCH (21:08)
[2017-11-14] MEDS: ROSUVASTATIN CALCIUM 10 MG TAB PO SCH (21:09)
[2017-11-15] MEDS: ALBUTEROL/IPRATROPIUM 3 ML NEB NEB SCH ×3 (05:34→16:57)
[2017-11-15] MEDS: LEVOTHYROXINE SOD 0.112 MG TAB PO SCH (05:48)
[2017-11-15] MEDS: APAP/HYDROCODONE 325/5 TAB PO PRN ×2 (08:24→19:23)
[2017-11-15 08:26] VITALS: BP 88/54
[2017-11-15] MEDS: DOCUSATE SODIUM 100 MG CAP PO SCH ×3 (09:00→21:00)
[2017-11-15] MEDS: TRIAMCINOLONE ACE 0.1% CR 80GM TP SCH ×2 (09:15→20:25)
[2017-11-15] MEDS: RIOCIGUAT 2.5 MG PO SCH ×3 (09:15→20:26)
[2017-11-15] MEDS: APIXABAN 2.5 MG TABLET PO SCH ×2 (09:16→20:27)
[2017-11-15] MEDS: CLOPIDOGREL BISULFATE 75MG TAB PO SCH (09:16)
[2017-11-15] MEDS: CARVEDILOL 3.125 MG TAB PO SCH ×2 (09:16→20:27)
[2017-11-15] MEDS: guaiFENesin 600 MG TABCR PO SCH ×2 (09:16→20:27)
[2017-11-15] MEDS: PANTOPRAZOLE SOD 40 MG TABEC PO SCH (09:16)
[2017-11-15] MEDS: PREGABALIN 50 MG CAP PO SCH ×2 (09:16→20:27)
[2017-11-15] MEDS: FUROSEMIDE 40 MG TAB PO SCH (09:16)
--- NOTE | 2017-11-15 09:56 | Medical Nutrition Therapy ---
Nutrition Anthropometrics Height (Inches): 66.00 Height (Calculated Centimeters: 167.906561 Weight (Pounds): 147 Weight (Calculated Kilograms): 66.820 Christiano Nutrition Score: Probably Inadequate Christiano Nutrition Risk Score: 16 Dietary Referral Nutrition Risk Factors: Nutrition Risk Comment: Physical Findings Physical Appearance: BMI 23.9 Skin Appearance Skin Appearance: Edema Edema Location Modifier: Both Edema Location: Foot Type of Edema: Degree of Edema: 1+ Gastrointestinal Symptoms GI Symtoms: Change in Bowel Pattern Tube Present: Bowel Sounds: Recent Bowel Pattern: Stool Characteristics: Nutritional Diagnosis Nutritional Risk Acuity 2: Chronic Renal Failure (with acute renal injury) Nutritional Risk Acuity 3: Fair Appetite, Nutrit Anemia (iron def. anemia ), Cancer (multiple myeloma), GERD Past Medical History: Pulmonary embolism, GERD, CHF, dyslipidemia, weakness, DVT, Acute renal failure, multiple myeloma, CAD, iron deficiency anemia Nutritional Acuity: 2-Moderate Nutrition Diagnosis: Increased Nutrient Needs Nutrition Etiology: Physiological Causes Nutrition Problem/Etiology/Sym: Increase nutrient needs realted to physiological causes AEB decrease in activity per OT note (10/20) and weakness. Energy Requirement: 1743 ([place] 1341 X Af 1.3 = 1743kcal/day) Adjusted Energy Requirement Re: 67 (1g/kg 1 X 67.132) Fluid Requirement: 1675 (> 75 yrs 25ml/kg 25X67.132) Diet Type: Diet as Tolerated CABRERA/REG Nutrition Intervention: Cont diet as ordered, Encourage intake, Change diet ( CHF diet) Drug: Diuretics Food Likes: popsicles ,, skim milk in glasses not carton Nutrition Monitoring & Eval Nutrition Goals: Eat 75-100% Meal RD Patient Assessment Time: [address] Assessment Type: RD Re-Assessment Patient Nutrition Acuity: 2-Moderate Follow Up Date: Nov 23, 2017 Nutritional Comment: 10/21 Pt was admitted for weakness with an extensive past medical history of Chronic venous insufficiency with edema, CHF and CAD. Pt states his whole body aches and had chest pain (10/16). Yesterday pt was sent to [place] for medical observations. states that pt is at risk for cardiac catheter. Pt is on CABRERA/REG diet with oral intake of 100%. However, pt may benefit from CHF diet due his medical history. Notable labs indicate elevated BUN 26. Continue to monitor pt and encourage intake. MT 10/25 Pt continues on CABRERA/REG diet with 100% oral intake. There are no concerns lab at this time. OT note (10/20) states the pt has decrease in activity and still is weak. Continue to monitor pt progress and encourage intake to help meet energy needs. MT 10/31 Pt on CABRERA and eating 100% of meals. Pt has dx acute renal failure superimposed on CKD. Creatinine is currently WNR at 1.1. BUN cont elevated at 34. Alb improved slightly at 2.7 but may be low r/t non-pitting an 1+ edema LE. Pt is recieving lasix. K+ is WNR at 4.3. Wt is up 5.4% possibly r/t edema. Will cont to monitor and encourage intake. 11/08 Pt continues on CABRERA/REG with 25% oral intake. Pt also refuses snack when offered. H/H are low and pt is put on an iron supplement for iron deficiency anemia. Creatinine is elevated (1.3), but has decreased over the past several days. Alb is slightly low (2.6) and has 1# wt gain since last note (10/31) may be low related to asymmetric swelling in buttock/hip. Continue to monitor pt progress and encourage intake. MT 11/15 Pt diet has changed from regular to diabetic with 100% oral intake. Pt blood sugars have maintained well controlled. Pt has had a 10# wt gain within one week. Unintentional wt gain could be caused by possible fluid retention. Pt has edema in both LE with +1 pitting. Pt is working on with PT/OT to help with increase his strength. Pt may benefit from CHF diet in addition to diabetic diet based on past hx of CHF and current BNP (350). Alb (2.8) and BUN (32). Continue to monitor pt progress, labs, wt and encourage intake. MT MARSHAL BONILLA Nov 15, 2017 08:31
[2017-11-15] MEDS: FERROUS SULFATE 325 MG TAB PO SCH (11:25)
[2017-11-15 16:15] VITALS: BP 127/63
[2017-11-15] MEDS: DOXEPIN HCL 10 MG CAP PO SCH (20:26)
[2017-11-15] MEDS: ROSUVASTATIN CALCIUM 10 MG TAB PO SCH (20:26)
[2017-11-15] MEDS: FINASTERIDE 5 MG TAB PO SCH (20:27)
[2017-11-16] MEDS: ALBUTEROL/IPRATROPIUM 3 ML NEB NEB SCH ×3 (05:55→18:05)
[2017-11-16] MEDS: APAP/HYDROCODONE 325/5 TAB PO PRN ×3 (05:57→19:02)
[2017-11-16] MEDS: LEVOTHYROXINE SOD 0.112 MG TAB PO SCH (05:57)
[2017-11-16 08:28] VITALS: BP 108/55
[2017-11-16] MEDS: CARVEDILOL 3.125 MG TAB PO SCH ×2 (09:00→20:22)
[2017-11-16] MEDS: CLOPIDOGREL BISULFATE 75MG TAB PO SCH (09:00)
[2017-11-16] MEDS: FUROSEMIDE 40 MG TAB PO SCH (09:01)
[2017-11-16] MEDS: RIOCIGUAT 2.5 MG PO SCH ×3 (09:01→20:22)
[2017-11-16] MEDS: PANTOPRAZOLE SOD 40 MG TABEC PO SCH (09:01)
[2017-11-16] MEDS: DOCUSATE SODIUM 100 MG CAP PO SCH ×2 (09:01→20:25)
[2017-11-16] MEDS: PREGABALIN 50 MG CAP PO SCH ×2 (09:01→20:22)
[2017-11-16] MEDS: guaiFENesin 600 MG TABCR PO SCH ×2 (09:01→20:22)
[2017-11-16] MEDS: APIXABAN 2.5 MG TABLET PO SCH ×2 (09:01→20:22)
[2017-11-16] MEDS: TRIAMCINOLONE ACE 0.1% CR 80GM TP SCH ×2 (09:02→20:21)
[2017-11-16] MEDS: ACETAMINOPHEN 325 MG TAB PO PRN (10:10)
[2017-11-16] MEDS: FERROUS SULFATE 325 MG TAB PO SCH (12:47)
[2017-11-16 16:40] VITALS: BP 121/61
[2017-11-16] MEDS: DOXEPIN HCL 10 MG CAP PO SCH (20:22)
[2017-11-16] MEDS: FINASTERIDE 5 MG TAB PO SCH (20:22)
[2017-11-16] MEDS: ROSUVASTATIN CALCIUM 10 MG TAB PO SCH (20:22)
[2017-11-17] MEDS: APAP/HYDROCODONE 325/5 TAB PO PRN ×3 (04:48→20:26)
[2017-11-17] MEDS: LEVOTHYROXINE SOD 0.112 MG TAB PO SCH (04:48)
[2017-11-17] MEDS: ALBUTEROL/IPRATROPIUM 3 ML NEB NEB SCH ×3 (05:57→17:19)
[2017-11-17 07:30] VITALS: BP 118/61
[2017-11-17] MEDS: PREGABALIN 50 MG CAP PO SCH ×2 (08:49→20:26)
[2017-11-17] MEDS: CLOPIDOGREL BISULFATE 75MG TAB PO SCH (08:49)
[2017-11-17] MEDS: RIOCIGUAT 2.5 MG PO SCH ×3 (08:49→20:26)
[2017-11-17] MEDS: DOCUSATE SODIUM 100 MG CAP PO SCH ×2 (08:49→20:26)
[2017-11-17] MEDS: guaiFENesin 600 MG TABCR PO SCH ×2 (08:49→20:25)
[2017-11-17] MEDS: APIXABAN 2.5 MG TABLET PO SCH ×2 (08:50→20:26)
[2017-11-17] MEDS: FUROSEMIDE 40 MG TAB PO SCH (08:50)
[2017-11-17] MEDS: CARVEDILOL 3.125 MG TAB PO SCH ×2 (08:50→20:26)
[2017-11-17] MEDS: TRIAMCINOLONE ACE 0.1% CR 80GM TP SCH ×2 (08:50→20:27)
[2017-11-17] MEDS: PANTOPRAZOLE SOD 40 MG TABEC PO SCH (08:50)
[2017-11-17] MEDS: FERROUS SULFATE 325 MG TAB PO SCH (12:59)
[2017-11-17] MEDS ORDERED: MAGNESIUM HYDROXIDE* 30ML UDCP PO PRN (14:15)
--- NOTE | 2017-11-17 14:42 | Hospitalist Progress Note ---
Subjective Progress Notes Subjective The patient complains of pain in his R hand, wrist and arm. He has had swelling as well. Physical Exam Vital Signs Date Time Temp Pulse Resp B/P (MAP) Pulse Ox O2 Delivery O2 Flow Rate FiO2 11/17/17 10:30 90 Nasal Cannula 5.0 11/17/17 07:30 97.0 90 20 118/61 (80) Intake and Output 11/18/17 07:00 Intake Total 1050 ml Balance 1050 ml Intake Oral 1050 ml # Voids 1 General Appearance: Alert, Awake, No Acute Distress Neuro: No Gross deficits Eyes: PERRLA Cardiovascular: Regular Rate and Rhythm Respiratory: Clear to Auscultation GI: Soft and Non-Tender Musculoskeletal: Other (R arm swollen throughout. Marked swelling of the R MCP joints. Tender to palpation. Can not make a fist. L arm okay.) Extremities: Warm, Perfused, Other (Trace edema.) Integumentary: Generalized Fragile Skin Psych: Appropriate Mood & Affect Assessment and Plan Problems: (1) Pneumonia Status: Acute Assessment & Plan: It appeared he had a RML/RLL pneumonia on CXR. He was placed on IV antibiotics for coverage of possible hospital acquired pneumonia with Cefepime, but azithromycin added when he developed fever to broaden coverage. Lactate performed 11/02 within normal limits, WBC increased to 13.7 but has normalized. His dermatitis became more symptomatic on antibiotics and these were stopped on day 8. He has continued to be afebrile. Encouraged him to be out of bed several times a day. He will get nebulizers and flutter therapy. Still requiring 5L O2. Echocardiogram done 11/08/17 (report faxed and is in paper chart) and showed hyperdynamic L ventricle, lattened septum c/w RV volume and pressure overload, reduced RV systolic function, RVH, and severe pulmonary HTN. It was noted that this was unchanged compared to his previous study (date not noted). BNP ordered slightly elevated at 350. Has been on daily Lasix. (2) Right ventricular failure Status: Chronic Assessment & Plan: Per echo as above. Continue Lasix and oxygen. Continue to monitor daily weights. (3) Generalized weakness Status: Acute Assessment & Plan: The patient's generalized weakness is multifactorial. He is improving with PT/OT. (4) IRON DEFICIENCY ANEMIA, UNSPECIFIED Status: Chronic Assessment & Plan: The patient is on iron supplements. He has history of gastric ulcers. His hemoglobin was lower today on lab work but not considerably different than what was reported during his stay at [facility]. He has not had evidence of gross GI blood loss. Stool for occult blood was positive. VSS. Will repeat labs today. (5) Cellulitis and abscess of left leg Status: Resolved Assessment & Plan: The patient was treated for acute cellulitis of the LLE while at [facility]. He was sent to ECF on doxycycline and has completed his course of therapy. He continues to have dry scaly skin and chronic venous stasis changes, but has no evidence of infection currently. (6) Acute kidney injury superimposed on CKD Status: Acute Assessment & Plan: Creatinine is 1.7. BUN is elevated. He is on Lasix. Will monitor labs periodically. (7) PVD (peripheral vascular disease) Status: Chronic Assessment & Plan: Continue apixaban and add Plavix per cardiology ([facility]). (8) Pulmonary hypertension Status: Chronic Assessment & Plan: Continue Admepas 2.5mg tid. Cardiology at [facility] recommended the patient be seen at [facility] for ongoing severe pulmonary HTN despite treatment. (9) NSTEMI (non-ST elevated myocardial infarction) Status: Acute Assessment & Plan: The patient was transferred from [facility] medical floor to [facility] with ischemic changes on EKG and elevation of his troponin. Cardiology at [facility] evaluated the patient and recommended medical management. ASA was stopped and Plavix was added to his apixaban. His chest pain resolved and his troponins stabilized while at [facility] and he was transferred to [facility] ECF for rehabilitation. 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 He is HLA-B27 positive. He is unable to take NSAIDs. Will try a medrol dosepak. His CRP has been elevated. (11) CAD (coronary artery disease) Status: Chronic Assessment & Plan: He has multiple LYNDSEY, 2 in his L circumflex and 3 in his RCA. He has a hx of diastolic dysfunction as well. (12) Atrial flutter Status: Chronic Assessment & Plan: On chronic anticoagulation. Rate was controlled on carvedilol. HR is up today. May be due to Lasix/dehydration. Lab work ordered. (13) DVT (deep venous thrombosis) Status: Chronic Assessment & Plan: Recurrent. He is on chronic anticoagulation as above. (14) Chronic respiratory failure Status: Chronic Assessment & Plan: He wears O2 at home. He has a long history of smoking was stopped many years ago. (15) Dyslipidemia Status: Chronic Assessment & Plan: Continue Crestor 40mg daily. (16) GERD (gastroesophageal reflux disease) Status: Chronic Assessment & Plan: Continue pantoprazole. See below (gastric ulcer). (17) Hypothyroid Status: Chronic Assessment & Plan: Continue levothyroxine. (18) Multiple myeloma Status: Chronic Assessment & Plan: Indolent per the patient. (19) Anxiety and depression Status: Chronic Assessment & Plan: Continue Zolpidem prn. Will DC alprazolam as this appears to make him quite drowsy if given during the day. 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 He had a biopsy at [facility] in August of this year that showed perivascular dermatitis. Treatment is to try to avoid things that exacerbate the issue. Can use topical steroids. Will try doxepin at HS for itching to see if this helps. TAC 0.1% cream bid prn. Soda linens and hypoallergenic soaps and lotions ordered. (21) Gastric ulcer Status: Chronic Assessment & Plan: Per Dr. Yarbrough's office notes, the patient has history of gastric ulcer and is supposed to be on pantoprazole bid. Will order this bid. (22) Swelling of right upper extremity Status: Acute Assessment & Plan: Has unilateral swelling and hx of DVT. Venous doppler ordered. Heart Failure Ejection Fraction %: 60 RVSP (mmHg): 82 NYHA Class: II Is Patient on MAHI Inhibitor?: No Is Patient on Beta Jigar?: Yes Problem Qualifiers (1) Multiple myeloma: Multiple myeloma remission status: unspecified Qualified Codes: C90.00 - Multiple myeloma not having achieved remission SIERRA GARCIA MD Nov 17, 2017 14:41
[2017-11-17 16:10] VITALS: BP 102/52
--- NOTE | 2017-11-17 16:19 | RADIOLOGY IMAGING REPORT ---
[place] [facility] [place] NAME[place] Meño Arechiga : 1940 MR: [id number] V: [id number] EXAM DATE: ORDERING PHYSICIAN: SIERRA GARCIA TECHNOLOGIST: Location: [facility] Patient: Meño Arechiga : 1940 Visit/Account:[id number] Date of Sevice: 11/17/2017 Exam type: VENOUS DOPP UPPER RIGHT EXTREM History: R upper extremity swelling, hx DVT Comparison: None. Findings: The right upper extremity veins were imaged including the right internal jugular vein, right subclavi an vein, right axillary vein, right basilic vein, right brachial vein, right cephalic vein, right rad ial vein and right ulnar vein revealing no evidence of intraluminal thrombi. The veins were compress ible and demonstrated augmentation IMPRESSION: 1. No sonographic evidence DVT involving the right upper extremity veins Report Dictated By: Mariam South MD at 11/17/2017 4:14 PM Report E-Signed By: Mariam South MD at 11/17/2017 4:15 PM WSN:[id number]
[2017-11-17] MEDS: ACETAMINOPHEN 325 MG TAB PO PRN (16:27)
[2017-11-17] MEDS: methylPREDNIS 4 MG TAB PO SCH ×2 (17:31→20:25)
[2017-11-17] MEDS: DOXEPIN HCL 10 MG CAP PO SCH (20:25)
[2017-11-17] MEDS: ROSUVASTATIN CALCIUM 10 MG TAB PO SCH (20:25)
[2017-11-17] MEDS: FINASTERIDE 5 MG TAB PO SCH (20:27)
[2017-11-18] MEDS: ALBUTEROL/IPRATROPIUM 3 ML NEB NEB SCH ×3 (05:49→17:21)
[2017-11-18] MEDS: LEVOTHYROXINE SOD 0.112 MG TAB PO SCH (06:13)
[2017-11-18 06:37] LABS: PLATELET COUNT, AUTOMATED 384 K/uL (150-450)
[2017-11-18 07:30] VITALS: BP 115/56
[2017-11-18] MEDS: TRIAMCINOLONE ACE 0.1% CR 80GM TP SCH ×2 (08:56→20:19)
[2017-11-18] MEDS: RIOCIGUAT 2.5 MG PO SCH ×3 (08:56→20:18)
[2017-11-18] MEDS: CLOPIDOGREL BISULFATE 75MG TAB PO SCH (08:57)
[2017-11-18] MEDS: CARVEDILOL 3.125 MG TAB PO SCH ×2 (08:57→20:19)
[2017-11-18] MEDS: PREGABALIN 50 MG CAP PO SCH ×2 (08:57→20:18)
[2017-11-18] MEDS: PANTOPRAZOLE SOD 40 MG TABEC PO SCH (08:57)
[2017-11-18] MEDS: APIXABAN 2.5 MG TABLET PO SCH ×2 (08:57→20:18)
[2017-11-18] MEDS: DOCUSATE SODIUM 100 MG CAP PO SCH ×2 (08:57→20:18)
[2017-11-18] MEDS: FUROSEMIDE 40 MG TAB PO SCH ×2 (08:57→09:02)
[2017-11-18] MEDS: guaiFENesin 600 MG TABCR PO SCH ×2 (08:57→20:19)
[2017-11-18] MEDS ORDERED: methylPREDNIS 4 MG TAB PO SCH ×2 (09:00→21:00)
[2017-11-18 09:47] VITALS: BP 161/72
[2017-11-18] MEDS: APAP/HYDROCODONE 325/5 TAB PO PRN ×2 (10:23→18:42)
[2017-11-18] MEDS: FERROUS SULFATE 325 MG TAB PO SCH (12:37)
[2017-11-18] MEDS: methylPREDNIS 4 MG TAB PO SCH ×2 (12:38→17:00)
[2017-11-18 15:26] VITALS: BP 134/84
[2017-11-18 15:44] VITALS: BP 125/70
[2017-11-18] MEDS: CALCIUM CARBONATE 500 MG CHEW PO PRN (18:41)
[2017-11-18] MEDS: DOXEPIN HCL 10 MG CAP PO SCH (20:19)
[2017-11-18] MEDS: FINASTERIDE 5 MG TAB PO SCH (20:19)
[2017-11-18] MEDS: ROSUVASTATIN CALCIUM 10 MG TAB PO SCH (20:19)
[2017-11-19] MEDS: CALCIUM CARBONATE 500 MG CHEW PO PRN (04:58)
[2017-11-19] MEDS: APAP/HYDROCODONE 325/5 TAB PO PRN (04:58)
[2017-11-19] MEDS: LEVOTHYROXINE SOD 0.112 MG TAB PO SCH (05:27)
[2017-11-19] MEDS: ALBUTEROL/IPRATROPIUM 3 ML NEB NEB SCH ×3 (06:01→17:23)
[2017-11-19 07:50] VITALS: BP 109/71
[2017-11-19] MEDS: RIOCIGUAT 2.5 MG PO SCH ×3 (08:50→20:18)
[2017-11-19] MEDS: CARVEDILOL 3.125 MG TAB PO SCH ×2 (08:51→20:19)
[2017-11-19] MEDS: CLOPIDOGREL BISULFATE 75MG TAB PO SCH (08:51)
[2017-11-19] MEDS: PANTOPRAZOLE SOD 40 MG TABEC PO SCH (08:51)
[2017-11-19] MEDS: DOCUSATE SODIUM 100 MG CAP PO SCH ×2 (08:51→20:20)
[2017-11-19] MEDS: guaiFENesin 600 MG TABCR PO SCH ×2 (08:51→20:19)
[2017-11-19] MEDS: FUROSEMIDE 40 MG TAB PO SCH (08:51)
[2017-11-19] MEDS: PREGABALIN 50 MG CAP PO SCH ×2 (08:51→20:19)
[2017-11-19] MEDS: methylPREDNIS 4 MG TAB PO SCH ×4 (08:51→20:19)
[2017-11-19] MEDS: APIXABAN 2.5 MG TABLET PO SCH ×2 (08:51→20:19)
[2017-11-19] MEDS: TRIAMCINOLONE ACE 0.1% CR 80GM TP SCH ×2 (08:52→20:18)
[2017-11-19] MEDS: FERROUS SULFATE 325 MG TAB PO SCH (12:35)
[2017-11-19 16:05] VITALS: BP 116/62
[2017-11-19] MEDS: DOXEPIN HCL 10 MG CAP PO SCH (20:19)
[2017-11-19] MEDS: FINASTERIDE 5 MG TAB PO SCH (20:19)
[2017-11-19] MEDS: ROSUVASTATIN CALCIUM 10 MG TAB PO SCH (20:19)
[2017-11-20] MEDS: LEVOTHYROXINE SOD 0.112 MG TAB PO SCH (05:15)
[2017-11-20] MEDS: ALBUTEROL/IPRATROPIUM 3 ML NEB NEB SCH ×3 (05:54→17:51)
[2017-11-20 07:39] LABS: PLATELET COUNT, AUTOMATED 439 K/uL (150-450)
[2017-11-20 08:00] VITALS: BP 122/67
[2017-11-20] MEDS: DOCUSATE SODIUM 100 MG CAP PO SCH ×3 (09:00→20:25)
[2017-11-20] MEDS: guaiFENesin 600 MG TABCR PO SCH ×2 (09:23→20:25)
[2017-11-20] MEDS: methylPREDNIS 4 MG TAB PO SCH ×2 (09:23→20:25)
[2017-11-20] MEDS: CLOPIDOGREL BISULFATE 75MG TAB PO SCH (09:23)
[2017-11-20] MEDS: CARVEDILOL 3.125 MG TAB PO SCH ×2 (09:23→20:25)
[2017-11-20] MEDS: PREGABALIN 50 MG CAP PO SCH ×2 (09:23→20:25)
[2017-11-20] MEDS: APIXABAN 2.5 MG TABLET PO SCH ×2 (09:23→20:25)
[2017-11-20] MEDS: TRIAMCINOLONE ACE 0.1% CR 80GM TP SCH ×2 (09:23→20:25)
[2017-11-20] MEDS: FUROSEMIDE 40 MG TAB PO SCH (09:23)
[2017-11-20] MEDS: RIOCIGUAT 2.5 MG PO SCH ×3 (09:24→20:25)
[2017-11-20] MEDS ORDERED: methylPREDNIS 4 MG TAB PO SCH (12:00)
[2017-11-20] MEDS: FERROUS SULFATE 325 MG TAB PO SCH (12:45)
[2017-11-20 15:30] VITALS: BP 110/58
[2017-11-20] MEDS: FINASTERIDE 5 MG TAB PO SCH (20:24)
[2017-11-20] MEDS: DOXEPIN HCL 10 MG CAP PO SCH (20:25)
[2017-11-20] MEDS: ROSUVASTATIN CALCIUM 10 MG TAB PO SCH (20:25)
[2017-11-20] MEDS: APAP/HYDROCODONE 325/5 TAB PO PRN (20:25)
[2017-11-21] MEDS: LEVOTHYROXINE SOD 0.112 MG TAB PO SCH (05:41)
[2017-11-21] MEDS: ALBUTEROL/IPRATROPIUM 3 ML NEB NEB SCH ×3 (05:55→16:45)
[2017-11-21 07:20] VITALS: BP 137/87
[2017-11-21] MEDS: TRIAMCINOLONE ACE 0.1% CR 80GM TP SCH ×2 (08:36→20:16)
[2017-11-21] MEDS: RIOCIGUAT 2.5 MG PO SCH ×3 (08:36→20:17)
[2017-11-21] MEDS: APIXABAN 2.5 MG TABLET PO SCH ×2 (08:37→20:17)
[2017-11-21] MEDS: FUROSEMIDE 40 MG TAB PO SCH (08:37)
[2017-11-21] MEDS: CLOPIDOGREL BISULFATE 75MG TAB PO SCH (08:37)
[2017-11-21] MEDS: PREGABALIN 50 MG CAP PO SCH ×2 (08:37→20:17)
[2017-11-21] MEDS: CARVEDILOL 3.125 MG TAB PO SCH ×2 (08:37→20:17)
[2017-11-21] MEDS: methylPREDNIS 4 MG TAB PO SCH ×2 (08:37→20:17)
[2017-11-21] MEDS: DOCUSATE SODIUM 100 MG CAP PO SCH ×3 (08:37→20:17)
[2017-11-21] MEDS: guaiFENesin 600 MG TABCR PO SCH ×2 (08:38→20:17)
[2017-11-21] MEDS: FERROUS SULFATE 325 MG TAB PO SCH (12:19)
[2017-11-21 15:40] VITALS: BP 133/65
--- NOTE | 2017-11-21 16:36 | Consultant Pharmacy Review ---
Art Manager Review Medication Review Do All Mecications have a Diag: Yes Pneumococcal Vaccine HX Pneumo Vac ([id number]): Yes (06/24) HX Pneumo Vac (Pneumovax): Yes (08/22) Comments Regarding the Review Monthly rx review. Patient is still in need of Lortab for pain. Review the need for this at least every 14 days. SIERRA MACK Nov 21, 2017 16:36
--- NOTE | 2017-11-21 16:41 | Consultant Pharmacy Review ---
Screwmaker Automatic Review Medication Review Do All Mecications have a Diag: Yes Pneumococcal Vaccine HX Pneumo Vac ([id number]): Yes (06/24) HX Pneumo Vac (Pneumovax): Yes (08/22) Comments Regarding the Review Monthly Rrx review: continue to monitor the need for Lortab and Ambien every 14 days. SIERRA MACK Nov 21, 2017 16:41
[2017-11-21] MEDS: ROSUVASTATIN CALCIUM 10 MG TAB PO SCH (20:17)
[2017-11-21] MEDS: DOXEPIN HCL 10 MG CAP PO SCH (20:17)
[2017-11-21] MEDS: FINASTERIDE 5 MG TAB PO SCH (20:17)
[2017-11-22] MEDS: ALBUTEROL/IPRATROPIUM 3 ML NEB NEB SCH ×3 (05:54→16:52)
[2017-11-22] MEDS: LEVOTHYROXINE SOD 0.112 MG TAB PO SCH (06:07)
[2017-11-22 06:51] LABS: PLATELET COUNT, AUTOMATED 433 K/uL (150-450)
[2017-11-22 07:48] VITALS: BP 139/71
[2017-11-22] MEDS: CLOPIDOGREL BISULFATE 75MG TAB PO SCH (08:31)
[2017-11-22] MEDS: guaiFENesin 600 MG TABCR PO SCH ×2 (08:31→21:15)
[2017-11-22] MEDS: TRIAMCINOLONE ACE 0.1% CR 80GM TP SCH ×2 (08:31→21:14)
[2017-11-22] MEDS: RIOCIGUAT 2.5 MG PO SCH ×3 (08:31→21:14)
[2017-11-22] MEDS: PREGABALIN 50 MG CAP PO SCH ×2 (08:32→21:15)
[2017-11-22] MEDS: APIXABAN 2.5 MG TABLET PO SCH ×2 (08:32→21:15)
[2017-11-22] MEDS: FUROSEMIDE 40 MG TAB PO SCH (08:32)
[2017-11-22] MEDS: CARVEDILOL 3.125 MG TAB PO SCH ×2 (08:32→21:15)
[2017-11-22] MEDS: DOCUSATE SODIUM 100 MG CAP PO SCH ×2 (08:38→21:00)
[2017-11-22] MEDS ORDERED: methylPREDNIS 4 MG TAB PO SCH (09:00)
--- NOTE | 2017-11-22 10:43 | Medical Nutrition Therapy ---
Nutrition Anthropometrics Height (Inches): 66.00 Height (Calculated Centimeters: 167.921445 Weight (Pounds): 157 Weight (Calculated Kilograms): 71.583 Christiano Nutrition Score: Adequate Christiano Nutrition Risk Score: 17 Dietary Referral Nutrition Risk Factors: Nutrition Risk Comment: Physical Findings Physical Appearance: Overweight BMI 25-29 Skin Appearance Skin Appearance: Edema Edema Location Modifier: Both Edema Location: Foot Type of Edema: Degree of Edema: 1+ Gastrointestinal Symptoms GI Symtoms: Constipation, Change in Bowel Pattern Tube Present: Bowel Sounds: Recent Bowel Pattern: Stool Characteristics: Nutritional Diagnosis Nutritional Risk Acuity 2: Chronic Renal Failure (with acute renal injury) Nutritional Risk Acuity 3: Fair Appetite, Nutrit Anemia (iron def. anemia ), Cancer (multiple myeloma), GERD Past Medical History: Pulmonary embolism, GERD, CHF, dyslipidemia, weakness, DVT, Acute renal failure, multiple myeloma, CAD, iron deficiency anemia, Swelling of right upper extremity Nutritional Acuity: 2-Moderate Nutrition Diagnosis: Increased Nutrient Needs Nutrition Etiology: Physiological Causes Nutrition Problem/Etiology/Sym: Monitor fluid intake related to physiological causes as evidence by edema in LE and swelling in right hand. Energy Requirement: 1743 ([place] [address] 1341 X Af 1.3 = 1743kcal/day) Adjusted Energy Requirement Re: 67 (1g/kg 1 X 67.132) Fluid Requirement: 1675 (> 74 yrs 25ml/kg 25X67.132) Diet Type: Diet as Tolerated CABRERA/REG Nutrition Intervention: Cont diet as ordered, Encourage intake, Change diet ( CHF diet) Drug: Diuretics Food Likes: popsicles ,, skim milk in glasses not carton Nutrition Monitoring & Eval Nutrition Goals: Eat 75-100% Meal RD Patient Assessment Time: [address] Assessment Type: RD Re-Assessment Patient Nutrition Acuity: 2-Moderate Follow Up Date: Nov 30, 2017 Nutritional Comment: 10/21 Pt was admitted for weakness with an extensive past medical history of Chronic venous insufficiency with edema, CHF and CAD. Pt states his whole body aches and had chest pain (10/16). Yesterday pt was sent to [place] for medical observations. states that pt is at risk for cardiac catheter. Pt is on CABRERA/REG diet with oral intake of 100%. However, pt may benefit from CHF diet due his medical history. Notable labs indicate elevated BUN 26. Continue to monitor pt and encourage intake. MT 10/25 Pt continues on CABRERA/REG diet with 100% oral intake. There are no concerns lab at this time. OT note (10/20) states the pt has decrease in activity and still is weak. Continue to monitor pt progress and encourage intake to help meet energy needs. MT 10/31 Pt on CABRERA and eating 100% of meals. Pt has dx acute renal failure superimposed on CKD. Creatinine is currently WNR at 1.1. BUN cont elevated at 34. Alb improved slightly at 2.7 but may be low r/t non-pitting an 1+ edema LE. Pt is recieving lasix. K+ is WNR at 4.3. Wt is up 5.4% possibly r/t edema. Will cont to monitor and encourage intake. 11/08 Pt continues on CABRERA/REG with 25% oral intake. Pt also refuses snack when offered. H/H are low and pt is put on an iron supplement for iron deficiency anemia. Creatinine is elevated (1.3), but has decreased over the past several days. Alb is slightly low (2.6) and has 1# wt gain since last note (10/31) may be low related to asymmetric swelling in buttock/hip. Continue to monitor pt progress and encourage intake. MT 11/15 Pt diet has changed from regular to diabetic with 100% oral intake. Pt blood sugars have maintained well controlled. Pt has had a 10# wt gain within one week. Unintentional wt gain could be caused by possible fluid retention. Pt has edema in both LE with +1 pitting. Pt is working on with PT/OT to help with increase his strength. Pt may benefit from CHF diet in addition to diabetic diet based on past hx of CHF and current BNP (350). Alb (2.8) and BUN (32). Continue to monitor pt progress, labs, wt and encourage intake. MT 11/22 Pt is on regular diet with 100% oral intake. Pt refuses meals and snacks once and awhile. Pt wt has increased by 5.5%, however this could be caused by fluid retention. Anticipate wt loss with diuretic use. Pt complains that he has pain in his right hand, due to swelling. Pt continues to have edema in both LE with +1 pitting. Pt weakness has been improving. Pt abscess on left leg has been resolved. Pt continues to take Lasix and is on O2. Pt has elevated liver enzymes, continues to have elevated BUN (37) and alb (3.1). Will continue to monitor pt progress, labs and encourage intake. MARSHAL BONILLA Nov 22, 2017 08:57
[2017-11-22] MEDS: FERROUS SULFATE 325 MG TAB PO SCH (12:21)
[2017-11-22 15:00] VITALS: BP 123/74
[2017-11-22] MEDS: ROSUVASTATIN CALCIUM 10 MG TAB PO SCH (21:15)
[2017-11-22] MEDS: DOXEPIN HCL 10 MG CAP PO SCH (21:15)
[2017-11-22] MEDS: FINASTERIDE 5 MG TAB PO SCH (21:15)
[2017-11-23] MEDS: ALBUTEROL/IPRATROPIUM 3 ML NEB NEB SCH (05:28)
[2017-11-23] MEDS: LEVOTHYROXINE SOD 0.112 MG TAB PO SCH (05:42)
[2017-11-23 08:00] VITALS: BP 143/77
[2017-11-23] MEDS: DOCUSATE SODIUM 100 MG CAP PO SCH (09:00)
[2017-11-23] MEDS: RIOCIGUAT 2.5 MG PO SCH (09:01)
[2017-11-23] MEDS: PREGABALIN 50 MG CAP PO SCH (09:01)
[2017-11-23] MEDS: CARVEDILOL 3.125 MG TAB PO SCH (09:01)
[2017-11-23] MEDS: FUROSEMIDE 40 MG TAB PO SCH (09:01)
[2017-11-23] MEDS: guaiFENesin 600 MG TABCR PO SCH (09:01)
[2017-11-23] MEDS: APIXABAN 2.5 MG TABLET PO SCH (09:02)
[2017-11-23] MEDS: CLOPIDOGREL BISULFATE 75MG TAB PO SCH (09:02)
[2017-11-23] MEDS: TRIAMCINOLONE ACE 0.1% CR 80GM TP SCH (09:02)
[2017-11-23] MEDS ORDERED: DOXE10CA25 PO (10:38)
[2017-11-23] MEDS ORDERED: CLOP75TA PO (10:38)
--- NOTE | 2017-11-23 10:47 | OT ECF NOTE ---
Type of Note: Discharge Note Primary Medical Diagnosis: Generalized weakness Occupational Therapy Evaluation Date: 11/11/2017 SUBJECTIVE: Prior Hospitalization: IM 10/15/17 thru 10/16/17. [facility] 10/16/17 thru 10/20/17; was D/C 10/29/2017 on ECF due to meeting goals. Prior Level of Function: Independent with ADLs and IADLs. Home Instead 1x/ week for assist with any needs Prior Living Status: Bi-level house, Alone Community Services: Home Accessibility: Stairs with rails, Walk-in shower Equipment Owned: Cane-two, RW, grab bars in shower Medical Complications/Past Medical History: Please refer to EMR Psychosocial Support: Supportive ex-spouse and daughter Pain Scale (0-10): None reported at time of evaluation OBJECTIVE: Strength: MMT: Right Left Shoulder Flexion WFL WFL Elbow Flexion WFL WFL Wrist Extension WFL WFL Pastoral Assistant WFL WFL (5= normal, 4= good, 3= fair, 2= poor, 1= trace) ROM: Both upper extremities, WFL Sensation: Neuropathy in B LE Functional Transfer: Assistive Device: Front wheeled walker Transfer Ability: Mod (I) ADL: Upper body dressing: Assistive device: None Upper body dressing ability: Independent Lower body dressing: Assistive device: None Lower body dressing ability: Independent Toileting: Assistive device: None Toileting ability: Independent Grooming/hygiene: Assistive device: [place] Grooming ability: Independent Bathing: Assistive device: Grab bar Bathing ability: Independent Standardized Assessment: Stacie Index of Activities of Daily Livin/20 upon discharge date (). ASSESSMENT: Patient was doing better during his stay and OT services D/C patient on 10/29/2017. Patient then medically was not doing well so OT services were re-ordered. Patient has medically improved and has met all skilled OT goals. He desires to discharge home with increased outside assist. Problem List/Current Limitations: Pain Decreased activity tolerance Generalized weakness Short Term Goals: 1) Pt will be Mod (I) UB/LB dressing. GOAL MET 2) Pt will be Independent grooming/hygiene. GOAL MET 3) Pt will demonstrate good endurance for independent standing shower task. GOAL MET 4) Pt will be Independent toileting. GOAL MET 5) Pt Stacie Index of ADLs will increase by 2 points. GOAL MET 6) Pt will be educated on appropriate energy conservation and adaptive methods for ADLs/IADLs.GOAL MET Mcfp Goals: Return to least restrictive environment Patient Goals: Return home Rehabilitation Prognosis: Good-Fair Barriers to Discharge: Medical hx, adherence to recommendations and education PLAN: The patient will discharge home with assist from ex-, increase HomeInstead services, and PT. Thank you for this referral. If you have any questions, concerns, or comments about this report or plan, please contact me at . Mary Godinez MS, OTR/L Occupational Therapist DAVID
[2017-11-23] MEDS ORDERED: PANT40TA63 PO (10:49)
--- NOTE | 2017-11-23 10:52 | Hospitalist Depart ---
Discharge Summary Reason for Hosp/Final Diag: (1) Pneumonia Status: Acute Hospital Course & Plan: It appeared he had a RML/RLL pneumonia on CXR. He was placed on IV antibiotics for coverage of possible hospital acquired pneumonia with Cefepime, but azithromycin added when he developed fever to broaden coverage. Lactate performed 11/02 within normal limits, WBC increased to 13.7 but has normalized. His dermatitis became more symptomatic on antibiotics and these were stopped on day 8. He has continued to be afebrile. Encouraged him to be out of bed several times a day. He received nebulizers and flutter therapy. He is requiring 4L O2. Echocardiogram done 11/08/17 (report faxed and is in paper chart) and showed hyperdynamic L ventricle, lattened septum c/w RV volume and pressure overload, reduced RV systolic function, RVH, and severe pulmonary HTN. It was noted that this was unchanged compared to his previous study (date not noted). BNP ordered slightly elevated at 350. Has been on daily Lasix. He already uses oxygen at home. He will follow up with his PCP on . He will also receive Home Health Services. (2) Right ventricular failure Status: Chronic Hospital Course & Plan: Per echo as above. Continue Lasix and oxygen. (3) Generalized weakness Status: Acute Hospital Course & Plan: The patient's generalized weakness is multifactorial. He has improved with PT/OT. (4) IRON DEFICIENCY ANEMIA, UNSPECIFIED Status: Chronic Hospital Course & Plan: The patient is on iron supplements. He has history of gastric ulcers. His hemoglobin was lower today on lab work but not considerably different than what was reported during his stay at [facility]. He has not had evidence of gross GI blood loss. Stool for occult blood was positive. VSS. (5) Cellulitis and abscess of left leg Status: Resolved Hospital Course & Plan: The patient was treated for acute cellulitis of the LLE while at [facility]. He was sent to ECF on doxycycline and has completed his course of therapy. He continues to have dry scaly skin and chronic venous stasis changes, but has no evidence of infection currently. (6) Acute kidney injury superimposed on CKD Status: Acute Hospital Course & Plan: Creatinine is 0.9. (7) PVD (peripheral vascular disease) Status: Chronic Hospital Course & Plan: Continue apixaban and add Plavix per cardiology ([facility]) . Prescription sent for patient for Plavix. (8) Pulmonary hypertension Status: Chronic Hospital Course & Plan: Continue Admepas 2.5mg tid. Cardiology at [facility] recommended the patient be seen at [facility] for ongoing severe pulmonary HTN despite treatment. (9) NSTEMI (non-ST elevated myocardial infarction) Status: Acute Hospital Course & Plan: The patient was transferred from [facility] medical floor to [facility] with ischemic changes on EKG and elevation of his troponin. Cardiology at [facility] evaluated the patient and recommended medical management. ASA was stopped and Plavix was added to his apixaban. His chest pain resolved and his troponins stabilized while at [facility] and he was transferred to [facility] for rehabilitation. 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 He is HLA-B27 positive. He is unable to take NSAIDs. He did complete a medrol dosepak. His CRP has been elevated. (11) CAD (coronary artery disease) Status: Chronic Hospital Course & Plan: He has multiple LYNDSEY, 2 in his L circumflex and 3 in his RCA. He has a hx of diastolic dysfunction as well. (12) Atrial flutter Status: Chronic Hospital Course & Plan: On chronic anticoagulation. Rate was controlled on carvedilol. (13) DVT (deep venous thrombosis) Status: Chronic Hospital Course & Plan: Recurrent. He is on chronic anticoagulation as above. (14) Chronic respiratory failure Status: Chronic Hospital Course & Plan: He wears O2 at home. He has a long history of smoking was stopped many years ago. (15) Dyslipidemia Status: Chronic Hospital Course & Plan: Continue Crestor 40mg daily. (16) GERD (gastroesophageal reflux disease) Status: Chronic Hospital Course & Plan: Continue pantoprazole. See below (gastric ulcer). (17) Hypothyroid Status: Chronic Hospital Course & Plan: Continue levothyroxine. (18) Multiple myeloma Status: Chronic Hospital Course & Plan: Indolent per the patient. 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 He had a biopsy at [facility] in August of this year that showed perivascular dermatitis. Treatment is to try to avoid things that exacerbate the issue. Can use topical steroids. He was started on doxepin at HS for itching to see if this helps. TAC 0.1% cream bid prn. Soda linens and hypoallergenic soaps and lotions was ordered. He will follow up with Dermatology if condition does not improve. (21) Gastric ulcer Status: Chronic Hospital Course & Plan: Per Dr. Yarbrough's office notes, the patient has history of gastric ulcer and is supposed to be on pantoprazole bid. (22) Swelling of right upper extremity Status: Acute Hospital Course & Plan: Has unilateral swelling and hx of DVT. Venous doppler ordered. Departure Latest Vital Signs Vital Signs 11/23/17 11/23/17 11/23/17 05:28 08:00 08:25 Temp 98.4 Pulse 71 Resp 20 B/P (MAP) 143/77 (99) Pulse Ox 92 O2 Delivery High-Flow Nasal Cannula O2 Flow Rate 4.0 Weight (Pounds): 156 Weight (Ounces): 13.0 Result Diagram: 11/22/1730 11/22/1730 Condition: Improved Discharge: Home, Home Health PT/OT Follow Up For: PT For Strengthening Home Health RN Follow Up For: Nursing Assessment Home Health FILER REPAIRER Follow Up For: ADL Assistance Discharge Instructions Home Meds Active Scripts Doxepin Hcl (DOXEPIN HCL) 10 Mg Capsule, 10 MG PO QHS, #30 CAPSULE Prov:[facility] 11/23/17 Clopidogrel Bisulfate (CLOPIDOGREL) 75 Mg Tablet, 75 MG PO QDAY, #30 TAB Prov:[facility] 11/23/17 Pregabalin (LYRICA) 150 Mg Capsule, 150 MG PO BID, #60 CAPSULE 5 Refills Prov:ELIS YARBROUGH MD 08/13/17 Clobetasol Propionate (CLOBETASOL PROPIONATE) 15 Gm Oint...g., 1 BRANDAN TP BID for 30 Days, #1 TUBE 2 Refills Prov:VIOLETTA [place] [facility] 08/12/17 Carvedilol (CARVEDILOL) 6.25 Mg Tab, 0.5 TAB PO BID, #30 TAB 6 Refills Prov:ELIS YARBROUGH MD 2/20/18 Rosuvastatin Calcium (CRESTOR) 40 Mg Tablet, 40 MG PO QDAY, #90 TAB 1 Refill Prov:ELIS YARBROUGH MD 07/14/17 Finasteride (FINASTERIDE) 5 Mg Tablet, 5 MG PO QHS, #90 TAB 1 Refill Prov:ELIS YARBROUGH MD 07/14/17 Ferrous Sulfate (FERROUS SULFATE) 325 Mg Tablet, 325 MG PO DAILY, #30 TAB 5 Refills Prov:ELIS YARBROUGH MD 06/09/17 Levothyroxine Sodium (LEVOTHYROXINE SODIUM) 0.112 Mg Tab, 0.112 MG PO QAM, #90 TAB 3 Refills Prov:ELIS YARBROUGH MD 06/04/17 Apixaban (ELIQUIS) 5 Mg Tablet, 5 MG PO BID, #60 TAB 3 Refills Prov:ELIS YARBROUGH MD 03/08/17 Reported Medications Furosemide (LASIX) 40 Mg Tablet, 1 TAB PO QDAY, TAB 10/20/17 Oxygen (OXYGEN) Inha, 3 L INH, L 08/07/17 Riociguat (Adempas) 1 Mg Tablet, 2.5 MG PO TID 03/23/17 Cholecalciferol (Vitamin D3) (D-2000) 2,000 Unit Capsule, 5000 UNIT PO QDAY, CAPSULE 03/23/17 Diet: Regular Activity: As Tolerated, With Walker, No Heavy Lifting, No Exertion, No Driving Special Instructions: Follow up appointment with Dr. Tirado November 25. Check in at 7:40 and appointment at 8:00. Copies to: ADY TIRADO MD Venous Thromboembolism Antithrombotics Is Pt On Any Antithrombotics?: Yes Heart Failure Ejection Fraction %: 60 RVSP (mmHg): 82 NYHA Class: II Is Patient on MAHI Inhibitor?: No Is Patient on Beta Jigar?: Yes [id number] Certification Face to Face Home Health Certification Institutional Provider conducted the [id number] encounter. Electronic Undersigning Physician Certifies Home Health. I certify that the patient has been under my care and that I had a [id number] encounter that meets the physician [id number] encounter requirements with this patient. This patient is home-bound due to safety issues and continues to require assistance with ADL's. I certify that based on my findings, that Nursing, Aides and the following Home Health services are medically necessary. Medical Necessity: Nursing, Rehab Date Face to Face Conducted: Nov 23, 2017 Problem Qualifiers (1) Multiple myeloma: Multiple myeloma remission status: unspecified Qualified Codes: C90.00 - Multiple myeloma not having achieved remission [facility] Nov 23, 2017 10:52
--- NOTE | 2017-11-23 14:32 | PT ECF NOTE ---
Type of Note: Discharge Summary Primary Medical Diagnosis: Generalized weakness, Acute on CKD, see EMR for details from [facility] Physical Therapy Discharge Date: 11/23/17 SUBJECTIVE: Prior Hospitalization: [facility] 10/15/17-10/16/17, [facility] 10/16/17-10/20/17 Prior Level of Function: Jacy with occasional use of SPC, pt reports history of falls Prior Living Status: Bi-level house, Alone Community Services: Previous use of [facility] services, Private caregiver via [employer] Home Accessibility: One step to enter home, flight of stairs to access second story Equipment Owned: Cane; Portable O2 concentrator, RW Medical Complications/Past Medical History: Complex, see EMR for details Psychosocial Support: None mentioned by patient Pain Scale (0-10): Minimal at time of d/c OBJECTIVE: Strength: 3+-4/5 throughout ROM: WFL Sensation: diminished light touch sensation to B) distal LEs Other Neuro findings: None noted Bed Mobility: Jacy with HOB flat and no bed rail Transfers: Jacy with RW Gait: 400-700' with SBA and RW Stairs: 4x4 stairs with SBA and R) railing ASSESSMENT: The patient's performance and tolerance to functional mobility has improved greatly since the addition of steroids to the pt's medication regime. Meño and pt's ex- and POA Kavita report that they plan for the patient to d /c home with [facility] services and increased services from [employer] private caregivers. Kavita also plans to stay with the patient upon initial d/c. The patient continues to demonstrate excellent tolerance to functional mobility as well as increased independence. Bed mobility and transfers completed with Jacy, with no bed rail required for supine<>sit. Pt ambulated 400' with RW and safely asc/desc 4x4 stairs with railing and SBA/Jacy. The pt reports that he plans to use a RW at time of d/c, which is recommended. Based on the pt's current functional abilities (x the past 5 days) the patient is safe to d/c home with above services in place. Problem List/Current Limitations: Decreased activity jany Decreased strength Decreased balance Generalized weakness Short Term Goals: 1: Pt to complete bed mobility with Jacy and HOB flat with no use of bed rail (met) 2: Pt to complete transfers with Jacy and least restrictive AD from a variety of surfaces. (met) 3: Pt to ambulate 600' with Jacy and least restrictive AD (partially met) 4: Pt to asc/desc flight of stairs with Jacy (partially met) 5: Pt to demonstrate good safety with O2 tubing management without verbal cues for safety (partially met) 6: Pt to increase gait speed to 0.8 m/sec to indicate improve in function ( not tested) Pump Service Supervisor Goals: Pt to d/c to most supportive environment to address frequent acute medical exacerbations. (met per pt's preference) Patient Goals: Pt would like to strengthen LEs in order to effectively carry groceries up stairs. PLAN: The patient discharged home with assistance from his ex-, as well as [facility] and private caregiver assistance via [employer]. Thank you for this referral. If you have any questions, concerns, or comments about this report or plan, please contact me at . Belem Talbert, PT, DPT [facility]
== END 2017-11-23 11:19 | disposition home health service (06) | DRG 280 ==
LOC: ECF 11:34
PROVIDERS: ADMIT Specialist; ATTEND Specialist
DX: I21.4 Non-ST elevation (NSTEMI) myocardial infarction (principal); J18.9 Pneumonia, unspecified organism; N17.9 Acute kidney failure, unspecified; I13.0 Hypertensive heart and chronic kidney disease with heart failure and stage 1 through stage 4 chronic kidney disease, or unspecified chronic kidney disease; L03.116 Cellulitis of left lower limb; C90.00 Multiple myeloma not having achieved remission; I48.92 Unspecified atrial flutter; J44.0 Chronic obstructive pulmonary disease with (acute) lower respiratory infection; J96.10 Chronic respiratory failure, unspecified whether with hypoxia or hypercapnia; N18.9 Chronic kidney disease, unspecified; I50.812 Chronic right heart failure; R53.1 Weakness; D50.9 Iron deficiency anemia, unspecified; I73.9 Peripheral vascular disease, unspecified; R62.7 Adult failure to thrive; I87.2 Venous insufficiency (chronic) (peripheral); D47.2 Monoclonal gammopathy; I27.20 Pulmonary hypertension, unspecified; I25.10 Atherosclerotic heart disease of native coronary artery without angina pectoris; E78.5 Hyperlipidemia, unspecified; K21.9 Gastro-esophageal reflux disease without esophagitis; E03.9 Hypothyroidism, unspecified; F41.8 Other specified anxiety disorders; L30.8 Other specified dermatitis; K25.7 Chronic gastric ulcer without hemorrhage or perforation; M54.9 Dorsalgia, unspecified; Z66 Do not resuscitate; Y92.230 Patient room in hospital as the place of occurrence of the external cause; Z88.8 Allergy status to other drugs, medicaments and biological substances; Z79.01 Long term (current) use of anticoagulants; Z86.718 Personal history of other venous thrombosis and embolism; Z86.711 Personal history of pulmonary embolism; Z99.81 Dependence on supplemental oxygen; Z90.49 Acquired absence of other specified parts of digestive tract; Z95.5 Presence of coronary angioplasty implant and graft; Z87.891 Personal history of nicotine dependence
CPT/HCPCS: 36415; 71045; 74176; 81001; 82040; 82247; 82274; 82310; 82374; 82435; 82565; 82947; 83605; 83880; 84075; 84132; 84155; 84295; 84450; 84460; 84520; 85025; 86140; 87040; 87088; 87324; 87449; 93005; 93306; 94640; 94667; 94668; 97161; 97165; J0456; J0692; J1940; J7030; J7040; J7050; J7509; Q0163

== ENCOUNTER 2018-01-21 10:56 | Outpatient (RCR) | payer BC ==
[2017-10-15 10:13] VITALS: Wt 66.4 kg
[2018-01-13 13:39] VITALS: BP 97/57
--- NOTE | 2018-01-13 16:31 | EL-TARAB[facility] ONCOLOGY NOTE ---
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 CHIEF COMPLAINT Patient is here today for followup of his smoldering multiple myeloma. ONCOLOGY HISTORY Patient is a 77-year-old male who came to the [facility] for evaluation of multiple concerns including severe pulmonary hypertension, recurrent venous thromboembolism, coronary artery disease, systolic heart failure with left ventricular ejection fraction of 45%, COPD, peripheral arterial disease, chronic lower extremity edema, nonhealing lower extremity ulcer and generalized pruritus. During his evaluation and admission there, he had nausea and vomiting and the patient was admitted for evolving sepsis and possible lower extremity cellulitis. His baseline creatinine is 1.4, and during hospitalization his creatinine peaked at 3.1 on May 04, 2017, which has improved after that. It was thought that his acute kidney injury was due to both hypotension and hemoglobin drop. 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 He was eventually diagnosed with multiple myeloma with 10% to 20% lambda light chain restricted plasma cells. Immunofixation showed IgD lambda and serum free light chain noted at kappa of 6.25 and lambda of 88.1, and a ratio of 0.0709. CT skeletal survey was negative for lytic or sclerotic bone lesions. He has had lower extremity edema for several years with erythematous induration. This has become pruritic. Patient does have known peripheral vascular disease. The question at that time when he was in [facility] was if the deterioration of his kidney function is because of his progressive kidney disease versus multiple myeloma and it was thought that this was not due to his myeloma, which is thought to be smoldering myeloma as per patient, so no indication for treatment was suggested at that time. HISTORY OF PRESENT ILLNESS Patient is here today for followup of his multiple myeloma. Apart from having some bruising from his blood thinner, patient does not have any other problem. PAST MEDICAL HISTORY 1. Chronic venous insufficiency with edema. 2. Congestive heart failure. 3. Coronary artery disease, status post stent in 2007. 4. Peripheral vascular disease, status post PTCA November 2014, November 2015, January 2016, January 2017. 5. Pulmonary hypertension diagnosed in July 2015. 6. Right heart catheterization in December 2016 showed pressure 90/35 with a mean of 52. 7. History of recurrent lower extremity DVT, pulmonary embolism once, on lifelong anticoagulation. 8. Possible COPD, on home oxygen at night. 9. Granulomatous lung disease. 10. Paroxysmal atrial fibrillation. 11. Chronic anxiety. 12. HLA-B27 positive, diagnosed with ankylosing spondylitis at [facility] in late , currently quiet. 13. GERD. 14. Indeterminate skin rash. 15. Possible peripheral neuropathy. 16. Hypothyroidism. 17. Early cataract. 18. Multiple myeloma, ISS stage II. 19. Proteinuria with normal creatinine 2.2 g/24 hours December 2016. 20. Impaired fasting glucose. A1c 6.3 in 2017. 21. Hyperlipidemia. 22. Hypertension. PAST SURGICAL HISTORY 1. Back surgery with laminectomy in . 2. Tonsillectomy. 3. Appendectomy. 4. Cholecystectomy. 5. Splenectomy following a high school sports injury. SOCIAL HISTORY Patient lives in [place], [place]. He is and has two children. 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 He smoked approximately a quarter to half a pack per day for 25-30 years and quit in 1989. He drank a fair amount of alcohol in the past, but now less than weekly. Denies drug use. FAMILY HISTORY Mother had lung cancer, and she was a smoker. There is a positive family history of polycystic disease. CURRENT MEDICATIONS 1. Metolazone 2.5 mg daily every other day. 2. Lasix 40 mg daily. 3. Tramadol 50 mg q.6 hourly p.r.n. for pain. 4. MiraLAX 17 g daily. 5. Alprazolam 0.5 mg three times daily as needed for anxiety. 6. Carvedilol 12.5 mg tablet one-half tablet twice daily. 7. Gabapentin 300 mg three times daily. 8. Magnesium oxide 400 mg daily. 9. Adempas 1 mg tablet. 10. Vitamin D 2000 units daily. 11. Eliquis 5 mg twice daily. 12. Artificial Tears four times daily. 13. Levothyroxine 112 mcg daily. 14. Finasteride 5 mg at bedtime. 15. Aspirin 81 mg daily. 16. Oxygen by inhalation. ALLERGIES TRAZODONE which caused itching. REVIEW OF SYSTEMS CONSTITUTIONAL: No appetite or weight change. No fever, chills or sweating. No recent infection. HEENT: Ears: No tinnitus or hearing problem. Nose: Patient has nasal discharge. Throat: No sore throat or mouth ulcers. Eyes: No diplopia or visual changes. RESPIRATORY: Patient has occasional wheezing from asthma. CARDIOVASCULAR: No chest pain, orthopnea, or paroxysmal nocturnal dyspnea (PND) . No edema. No palpitations. GASTROINTESTINAL: No nausea or vomiting. He has alternating diarrhea and constipation.No heartburn or swallowing difficulties. No abdominal pain. No jaundice. No hematemesis, melena or rectal bleeding. GENITOURINARY: No hematuria or dysuria. MUSCULOSKELETAL: He has pain in the feet and hands. NEUROLOGICAL: Patient has occasional headache. HEMATOLOGIC/LYMPHATIC: He bruises easily, but due to the use of anticoagulation. He is weak, tired, and fatigued. No enlarged lymph nodes. SKIN: He has itching. PSYCHIATRIC: No anxiety or depression. PHYSICAL EXAMINATION GENERAL: Looks stable. Well developed, well nourished, and in no acute distress. VITAL SIGNS: Blood pressure 97/57, pulse 87 per minute, respirations 16 per minute, temperature 97, pulse ox 90% on 3L oxygen. HEENT: Head: Atraumatic. No sinus tenderness to palpation. Eyes: No icterus or conjunctivitis. Mouth and Throat: No oral thrush or mucositis. NECK: Supple. No cervical or supraclavicular lymphadenopathy. LUNGS: Clear to auscultation and percussion bilaterally. HEART: Regular rate and rhythm. No gallops, murmurs, clicks or rubs. ABDOMEN: Soft and lax. No tenderness. No hepatosplenomegaly. No masses. EXTREMITIES: There is mild leg edema and evidence of chronic venous insufficiency in his legs. LYMPHATICS: No peripheral lymphadenopathy. NEUROLOGICAL: Conscious, alert, and oriented times three. No focal motor or sensory deficits. PSYCHIATRIC: Mood and affect appear normal. SKIN: No skin rash, bruise or purpuric eruption. DIAGNOSTIC DATA CBC showed white count 10.1, hemoglobin 8.8, hematocrit 28.6, platelets 451, 000. Chem panel totally normal except BUN 39, chloride 107, carbon dioxide 19, alkaline phosphatase 150, uric acid normal at 8.5, and LDH is normal at 153. The myeloma profile is still pending. ASSESSMENT Smoldering multiple myeloma with IgD lambda. CT skeletal survey came back negative for lytic or sclerotic bone lesions. Patient has been evaluated at [facility] and was diagnosed with smoldering multiple myeloma with recommendation of only followup. His lambda free light chain increased from 88 to 768.5, which I thought was wrong. Repeat skeletal bone survey September 30, 2017 , came back negative. Urine kappa free light chain was 3.9, and the IgD level was 172. His myeloma profile at this time is pending. I plan to see him again in three months with CBC, chemistry panel, LDH, uric acid, and myeloma profile including quantitation of IgD, a 24-hour urine for kappa free light chain, and lambda free light chain. Patient currently is stable. PLAN 1. Continue followup. 2. Patient to return in three months with CBC, chem panel, LDH, uric acid, myeloma profile including quantitation of IgD and a 24-hour urine for free light chain assay. 3. Patient is to contact us for any new concerns or complaints. [facility]
[~2018-01-21 10:56] MED LIST changes: +ACET500T68 PO; +CHOL500045 PO; +CLOP75TA PO; +DICL100G39 TOP; +DOXE10CA25 PO; -HYDR-4309 PO; +HYDR-653 PO; +PANT40TA63 PO; +RIOC2.5T PO; -SIMV-59 PO; +SIMV-63 PO
[2018-01-21] MEDS ORDERED: diphenhydrAMINE 25 MG CAP PO ONE (11:30)
[2018-01-21] MEDS ORDERED: ACETAMINOPHEN 325 MG TAB PO ONE (11:30)
[2018-01-21 11:40] VITALS: BP 121/55
[2018-01-21 12:05] VITALS: BP_SYST 135; BP_SYST 141; BP_DIAS 63
[2018-01-21 12:21] VITALS: BP 133/64
[2018-01-21 13:46] VITALS: BP 147/68
[2018-01-21 14:05] VITALS: BP 151/68
[2018-01-21 16:30] VITALS: BP 160/86
[2018-01-21] MEDS ORDERED: FUROSEMIDE 20 MG/2 ML VIAL IVP PRN (16:30)
[2018-02-08] MEDS ORDERED: PANT40TA63 PO (17:05)
[2018-03-08] MEDS ORDERED: DICL100G39 TOP (16:39)
[2018-03-08] MEDS ORDERED: FLU180SY11 IM (17:27)
[2018-04-07] MEDS ORDERED: KETO1DRO3 OP (13:51)
[2018-04-07] MEDS ORDERED: OFLO5DRO41 OU (13:52)
[2018-04-07] MEDS ORDERED: PRED5DRO3 OD (13:53)
[2018-04-07] MEDS ORDERED: PRED20TA6 PO (13:58)
[2018-04-07] MEDS ORDERED: LEVO750T27 PO (13:58)
== END 2018-04-12 ==
LOC: SPU 10:56
PROVIDERS: ATTEND Internal Medicine Hematology
DX: C90.00 Multiple myeloma not having achieved remission (principal); R53.1 Weakness; R53.83 Other fatigue; Z87.891 Personal history of nicotine dependence; Z79.01 Long term (current) use of anticoagulants; K59.00 Constipation, unspecified; R19.7 Diarrhea, unspecified
CPT/HCPCS: 36415; 36430; 86850; 86900; 86901; 86920; 96374; 99212; J1940; P9016

== ENCOUNTER 2018-04-04 13:12 | Inpatient (IN) | payer MEDICARE, BC ==
[~2018-04-04] VITALS: Ht 167.6 cm; Wt 70.3 kg
[~2018-04-04 13:12] MED LIST changes: -KETO1DRO3 OP; -LEVO750T27 PO; -OFLO5DRO41 OU; -PRED20TA6 PO; -PRED5DRO3 OD; +RANI75TA5 PO; -RANI75TA51 PO
--- NOTE | 2018-04-04 13:14 | ER Report ---
History and Physical Time Seen By MD: 13:14 HPI/ROS CHIEF COMPLAINT: Dyspnea HISTORY OF PRESENT ILLNESS: This is a 69-year-old male who presents to the emergency department via EMS for dyspnea. Patient states he went to bed feeling okay last night then awoke this morning feeling short of breath. Placed himself on his oxygen that he had at home. Became very nervous as he does have a history of CHF called [facility] ambulance subsequently they did bring him into the ER. They were concerned that there may be some ischemia as noted on the EKG they did give him nitroglycerin on route, did not seem to the change his dyspnea. Patient is not complaining of chest pain, no nausea or vomiting. No visual changes. No fevers or chills. No other complaints. After the patient's was given a breathing treatment and is less anxious, he does tell me that over the last 3-4 months he's been taking Lasix and following up with his primary care provider has been improving however over the last 3 days he's had increased shortness of breath with a productive cough and then last night he became increasingly short of breath and significant worse this morning with a cough. REVIEW OF SYSTEMS: Constitutional: No fever, no chills. Eyes: No discharge. ENT: No sore throat. Cardiovascular: No chest pain, no palpitations. Respiratory: As above. Gastrointestinal: No abdominal pain, no vomiting. Genitourinary: No hematuria. Musculoskeletal: No back pain. Skin: No rashes. Neurological: No headache. Allergies: Coded Allergies: trazodone (Verified Allergy, Intermediate, 04/04/18) acetaminophen (Verified Adverse Reaction, Unknown, Hallucinations, 04/04/18) oxycodone (Verified Adverse Reaction, Unknown, Hallucinations, 04/04/18) Home Meds Active Scripts Diclofenac Sodium 1% Gel (VOLTAREN 1% GEL) 100 Gm Gel..gram., 2 GM TOP TID for 30 Days, #1 TUBE Prov:ADY TIRADO MD 03/08/18 Pantoprazole Sodium (PROTONIX) 40 Mg Tablet.dr, 40 MG PO BID for 60 Days, #60 TAB.SR Prov:ADY TIRADO MD 02/08/18 Clopidogrel Bisulfate (CLOPIDOGREL) 75 Mg Tablet, 75 MG PO QDAY for 90 Days, #90 TAB 3 Refills Prov:ADY TIRADO MD 01/11/18 Apixaban (ELIQUIS) 5 Mg Tablet, 5 MG PO BID, #60 TAB 3 Refills Prov:ADY TIRADO MD 01/09/18 Rosuvastatin Calcium (CRESTOR) 40 Mg Tablet, 1 TAB PO QDAY for 90 Days, #90 TAB 4 Refills Prov:ADY TIRADO MD 01/06/18 Carvedilol (CARVEDILOL) 6.25 Mg Tab, 1 TAB PO BID, #30 TAB 6 Refills Prov:ADY TIRADO MD 12/20/17 Triamcinolone Acetonide 0.1% Oint 15 Gm Tube (TRIAMCINOLONE ACETONIDE 0.1% 15 GM TUBE) 15 Gm Oint...g., 15 GM TP DAILY for 14 Days, #1 TUBE Prov:ELIS VALLE MD 12/07/17 Clobetasol Propionate (CLOBETASOL PROPIONATE) 15 Gm Oint...g., 1 BRANDAN TP BID for 30 Days, #1 TUBE 2 Refills Prov:ADY TIRADO MD 12/07/17 Finasteride (FINASTERIDE) 5 Mg Tablet, 5 MG PO QHS, #90 TAB 1 Refill Prov:ELIS VALLE MD 07/14/17 Ferrous Sulfate (FERROUS SULFATE) 325 Mg Tablet, 325 MG PO DAILY, #30 TAB 5 Refills Prov:ELIS VALLE MD 06/09/17 Levothyroxine Sodium (LEVOTHYROXINE SODIUM) 0.112 Mg Tab, 0.112 MG PO QAM, #90 TAB 3 Refills Prov:ELIS VALLE MD 06/04/17 Reported Medications Acetaminophen (TYLENOL EXTRA STRENGTH) 500 Mg Tablet, 2 TAB PO BID, CAP 01/11/18 Duloxetine Hcl (CYMBALTA) 60 Mg Capsule.dr, 60 MG PO QDAY for 90 Days, #90 CAP 12/20/17 Riociguat (Adempas) 2.5 Mg Tablet, 1 TAB PO TID 11/25/17 Cholecalciferol (Vitamin D3) (VITAMIN D) 5,000 Unit Tablet, 1 TAB PO DAILY 11/25/17 Furosemide (LASIX) 40 Mg Tablet, 1 TAB PO QDAY, TAB 10/20/17 Oxygen (OXYGEN) Inha, 5 L INH, L 08/07/17 Past Medical/Surgical History The patient has a past medical and surgical history of cardiac stents, congestive heart failure, an STEMI, angina, A. fib, a flutter, DVT, hypertension, hypercholesterolemia, abdominal pain, black stools intermittently, cholecystectomy, BPH, arthritis, ankylosing spondylitis, hard of hearing, wears glasses, cellulitis, depression, anxiety, multiple myeloma, splenectomy, bilateral inguinal hernia repair, prostatectomy. Tonsillectomy. Reviewed Nurses Notes: Yes Hx Smoking: Yes Smoking Status: Never Smoker Exposure to Second Hand Smoke?: Yes Hx Substance Use Disorder: No Hx Alcohol Use: No Constitutional Vital Sign - Last 24 Hours 04/04/18 04/04/18 04/04/18 04/04/18 13:12 13:17 13:22 13:23 Temp 99.7 Pulse 88 83 Resp 28 B/P (MAP) 136/81 (99) 136/81 Pulse Ox 84 O2 Delivery Nasal Cannula O2 Flow Rate 4.0 04/04/18 04/04/18 04/04/18 04/04/18 13:30 13:42 13:43 13:43 Pulse 83 81 Resp 19 16 B/P (MAP) 148/84 (105) Pulse Ox 88 89 O2 Delivery Nasal Cannula Nasal Cannula O2 Flow Rate 4 6.0 04/04/18 04/04/18 04/04/18 04/04/18 13:45 14:00 14:05 14:15 Pulse 79 Resp 17 17 B/P (MAP) 133/72 (92) 122/68 (86) 127/70 (89) Pulse Ox 93 89 O2 Delivery Oxy Mask Oxy Mask O2 Flow Rate 8 8 04/04/18 04/04/18 04/04/18 04/04/18 14:30 14:35 14:45 15:00 Pulse 77 Resp 23 B/P (MAP) 115/68 (84) 115/61 (79) 121/67 (85) Pulse Ox 88 O2 Delivery Oxy Mask O2 Flow Rate 8 04/04/18 04/04/18 04/04/18 15:05 15:15 15:20 Pulse 68 74 Resp 27 20 B/P (MAP) 132/81 (98) Pulse Ox 87 86 O2 Delivery Oxy Mask Oxy Mask O2 Flow Rate 8 8 Physical Exam General Appearance: The patient is alert, has no immediate need for airway protection and no signs of toxicity, he does have increased work of breathing. Eyes: Pupils equal and round no pallor or injection. ENT, Mouth: Mucous membranes are moist. Respiratory: Diminished lung sounds throughout, course in the left upper and right lower. Cardiovascular: Regular rate and rhythm, no murmurs, clicks or rubs. Gastrointestinal: Abdomen is soft and non tender, no masses, bowel sounds normal. Neurological: Alert and oriented 4. Moving all extremities. Following all commands. No focal neuro deficits. Skin: Warm and dry, no rashes. Musculoskeletal: Neck is supple non tender. Extremities are nontender, nonswollen and have full range of motion. DIFFERENTIAL DIAGNOSIS: After history and physical exam differential diagnosis was considered for shortness of breath including but not limited to pulmonary infectious process, COPD, asthma, pulmonary embolus and congestive heart failure. Medical Decision Making Data Points Result Diagram: 04/04/18 1311 04/04/18 1311 Laboratory Hematology Test 04/04/18 13:11 04/04/18 14:19 Red Blood Count 4.33 M/uL (4.00-5.60) Mean Corpuscular Volume 87.9 fL (80.0-96.0) Mean Corpuscular Hemoglobin 28.0 pg (26.0-33.0) Mean Corpuscular Hemoglobin Concent 31.9 g/dL (32.0-36.0) Red Cell Distribution Width 17.9 % (11.5-14.5) Mean Platelet Volume 7.9 fL (7.2-11.1) Neutrophils (%) (Auto) 86.6 % (39.4-72.5) Lymphocytes (%) (Auto) 7.2 % (17.6-49.6) Monocytes (%) (Auto) 4.7 % (4.1-12.4) Eosinophils (%) (Auto) 1.0 % (0.4-6.7) Basophils (%) (Auto) 0.5 % (0.3-1.4) Nucleated RBC Relative Count (auto) 0.0 /100WBC Neutrophils # (Auto) 17.8 K/uL (2.0-7.4) Lymphocytes # (Auto) 1.5 K/uL (1.3-3.6) Monocytes # (Auto) 1.0 K/uL (0.3-1.0) Eosinophils # (Auto) 0.2 K/uL (0.0-0.5) Basophils # (Auto) 0.1 K/uL (0.0-0.1) Nucleated RBC Absolute Count (auto) 0.00 K/uL Peripheral Blood Smear Yes Y/N Sodium Level 139 mmol/L (137-145) Potassium Level 4.0 mmol/L (3.5-5.0) Chloride Level 106 mmol/L (98-107) Carbon Dioxide Level 21 mmol/L (22-30) Blood Urea Nitrogen 25 mg/dl (9-21) Creatinine 1.20 mg/dl (0.66-1.25) Glomerular Filtration Rate Calc 58.6 Random Glucose 105 mg/dl (75-110) Calcium Level 9.4 mg/dl (8.4-10.2) Total Bilirubin 0.5 mg/dl (0.2-1.3) Aspartate Amino Transf (AST/SGOT) 17 U/L (0-35) Alanine Aminotransferase (ALT/SGPT) 23 U/L (0-56) Alkaline Phosphatase 87 U/L (0-126) Troponin I 0.013 ng/ml B-Type Natriuretic Peptide 921 pg/ml (0-100) Total Protein 7.4 g/dl (6.3-8.2) Albumin 3.9 g/dl (3.5-5.0) Lactate 1.0 mmol/L (0.7-2.1) Chemistry Test 04/04/18 13:11 04/04/18 14:19 White Blood Count 20.6 k/uL (4.5-11.0) Red Blood Count 4.33 M/uL (4.00-5.60) Hemoglobin 12.1 g/dL (14.0-18.0) Hematocrit 38.0 % (42.0-52.0) Mean Corpuscular Volume 87.9 fL (80.0-96.0) Mean Corpuscular Hemoglobin 28.0 pg (26.0-33.0) Mean Corpuscular Hemoglobin Concent 31.9 g/dL (32.0-36.0) Red Cell Distribution Width 17.9 % (11.5-14.5) Platelet Count 355 K/uL (150-450) Mean Platelet Volume 7.9 fL (7.2-11.1) Neutrophils (%) (Auto) 86.6 % (39.4-72.5) Lymphocytes (%) (Auto) 7.2 % (17.6-49.6) Monocytes (%) (Auto) 4.7 % (4.1-12.4) Eosinophils (%) (Auto) 1.0 % (0.4-6.7) Basophils (%) (Auto) 0.5 % (0.3-1.4) Nucleated RBC Relative Count (auto) 0.0 /100WBC Neutrophils # (Auto) 17.8 K/uL (2.0-7.4) Lymphocytes # (Auto) 1.5 K/uL (1.3-3.6) Monocytes # (Auto) 1.0 K/uL (0.3-1.0) Eosinophils # (Auto) 0.2 K/uL (0.0-0.5) Basophils # (Auto) 0.1 K/uL (0.0-0.1) Nucleated RBC Absolute Count (auto) 0.00 K/uL Peripheral Blood Smear Yes Y/N Glomerular Filtration Rate Calc 58.6 Calcium Level 9.4 mg/dl (8.4-10.2) Total Bilirubin 0.5 mg/dl (0.2-1.3) Aspartate Amino Transf (AST/SGOT) 17 U/L (0-35) Alanine Aminotransferase (ALT/SGPT) 23 U/L (0-56) Alkaline Phosphatase 87 U/L (0-126) Troponin I 0.013 ng/ml B-Type Natriuretic Peptide 921 pg/ml (0-100) Total Protein 7.4 g/dl (6.3-8.2) Albumin 3.9 g/dl (3.5-5.0) Lactate 1.0 mmol/L (0.7-2.1) EKG/Imaging EKG Interpretation 12 lead EKG: Time of EKG 1328. Rhythm: Atrial fibrillation, ventricular rate 79 BPM. Incomplete right bundle branch. Rosalia: Right axis deviation. QRS: normal ST segments: The patient has diffuse ST inversion and all leads except for aVL. No reciprocal changes. No significant changes from the 11/10/2017 EKG however on the November 10 EKG no P waves are identified, however on the current EKG P waves are noted, they do m arch out, the QRS complex showing a fibrillation. Imaging Technique: CHEST SINGLE AP HISTORY: RESP DISTRESS Comparison studies: Chest radiographs November 07, 2017 FINDINGS: No acute airspace consolidation. There remains central vascular congestion. No pleural effusion. The cardiomediastinal silhouette is enlarged and unchanged. IMPRESSION: 1. No significant interval change with findings consistent with pulmonary edema. Report Dictated By: Satish Stoll DO at 04/04/2018 2:02 PM Report E-Signed By: Satish Stoll DO at 04/04/2018 2:03 PM WSN:[facility] ED Course/Re-evaluation Clinical Indication for ER IV: IV Access ED Course The patient was admitted to room. A history and physical obtained. Differential diagnoses were considered. IV was started. A CBC, CMP and troponin were obtained. CBC showing white count of 20.6 with a left shift, chemistry showing BUN 25 creatinine 1.2 negative lactates troponin unremarkable, BNP 921. Single view chest x-ray showing no significant changes from previous chest x-rays consistent with pulmonary edema. The patient has had increased shortness of breath, I did give him 40 mg IV Lasix. Patient is also on 8 L simple mask still with increased work of breathing. Although the chest x-ray did not show infectious process I do feel that with the elevated white count and his presentation would treat him for an atypical pneumonia. I did review these results with the patient I did speak with Dr. Caio Driver, he accepts the patient in the hospitalist services. Patient does have tenuous lungs, I also spoke with Dr. Tirado regarding the patients case. 04/04/2018 3:15:44 pm I did speak with the hospitalist on-call, Dr. Caio Driver he's accepted the patient into the hospitalist services for an atypical pneumonia. The patient's curb 65 score is 3. Decision to Disposition Date: Apr 04, 2018 Decision to Disposition Time: 15:18 Depart Departure Latest Vital Signs Vital Signs Date Time Temp Pulse Resp B/P (MAP) Pulse Ox O2 Delivery O2 Flow Rate FiO2 04/04/18 15:20 74 20 86 Oxy Mask 8 04/04/18 15:15 132/81 (98) 04/04/18 13:23 99.7 Impression: Primary Impression: Atypical pneumonia Condition: Improved Disposition: Admitted from ER Referrals: ADY TIRADO MD (PCP) DEONDRE JOHNSON SUPERVISOR PREP- Apr 04, 2018 13:14
[2018-04-04] MEDS ORDERED: ALBUTEROL/IPRATROPIUM 3 ML NEB NEB ONE (13:20)
[2018-04-04] MEDS ORDERED: methylPREDNIS SUCC 125 MG/2ML IVP ONE (13:20)
[2018-04-04 13:30] LABS: PLATELET COUNT, AUTOMATED 355 K/uL (150-450)
[2018-04-04] MEDS ORDERED: ONDANSETRON 4 MG/2 ML VIAL ONE (13:32)
[2018-04-04] MEDS ORDERED: ONDANSETRON 4 MG/2 ML VIAL IVP ONE (13:35)
--- NOTE | 2018-04-04 14:08 | RADIOLOGY IMAGING REPORT ---
FACILITY: PATIENT NAME: Meño Arechiga : 1940 MR: [id number] V: [id number] EXAM DATE: ORDERING PHYSICIAN: DEONDRE JOHNSON TECHNOLOGIST: Location[facility] [place] Patient: Meño Arechiga : 1940 Visit/Account:[id number] Date of Sevice: 04/04/2018 Technique: CHEST SINGLE AP HISTORY: RESP DISTRESS Comparison studies: Chest radiographs November 07, 2017 FINDINGS: No acute airspace consolidation. There remains central vascular congestion. No pleural ef fusion. The cardiomediastinal silhouette is enlarged and unchanged. IMPRESSION: 1. No significant interval change with findings consistent with pulmonary edema. Report Dictated By: Satish Stoll DO at 04/04/2018 2:02 PM Report E-Signed By: Satish Stoll DO at 04/04/2018 2:03 PM WSN:[id number]
[2018-04-04] MEDS ORDERED: FUROSEMIDE 40 MG/4 ML VIAL IVP SCH (14:45)
[2018-04-04] MEDS ORDERED: LEVOFLOXACIN/D5W 750 MG/150 ML 150 ML IVPB ONE (15:20)
[2018-04-04 16:09] VITALS: BP 101/86
[2018-04-04] MEDS ORDERED: OFLOXACIN 0.3% OP SOLN 5ML BTL OU SCH (18:00)
[2018-04-04] MEDS ORDERED: FLUSH 10 ML SYR IVP PRN (18:05)
[2018-04-04] MEDS ORDERED: DICLOFENAC SOD 100 GM GEL TOP PRN (18:10)
[2018-04-04] MEDS ORDERED: cefTRIAXone(*) 1 GM VIAL 1 GM in NS(*) 0.9% 100 ML ADDVANT BAG 100 ML IVPB SCH (18:30)
[2018-04-04] MEDS ORDERED: NS(*) 0.9% 250 ML BAG 250 ML IV PRN (18:30)
[2018-04-04] MEDS ORDERED: prednisoLONE ACE 1% OP 5ML BTL OU SCH (18:30)
[2018-04-04] MEDS ORDERED: KETOROLAC TROM 0.5% OP 3 ML BTL OU SCH (18:30)
[2018-04-04 19:00] VITALS: BP 118/65
--- NOTE | 2018-04-04 19:01 | History & Physical ---
History of Present Illness Chief Complaint Short of breath History of Present Illness 77yo male with extensive PMHx including severe pulmonary HTN, PVD, CAD, indolent multiple myeloma, atrial fib/flutter. He reports onset of productive cough fernando ral days ago with increased SOB over past 24 hours. He has not appreciated any fevers/chills. He denies any CP. No diaphoresis. No GI complaints. No urinary complaints. He was evaluated in the ER and found to have an elevated WBC count, interstitial prominence of CXR (pulmonary edema vs. atypical pneumonia), hypoxia. He was recommended for admission. 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 Status: Chronic (14) GERD (gastroesophageal reflux disease) Status: Chronic (15) NSTEMI (non-ST elevated myocardial infarction) Status: Acute (16) BPH (benign prostatic hyperplasia) Status: Chronic (17) Hypothyroid Status: Chronic (18) CAD (coronary artery disease) Status: Chronic (19) Cellulitis and abscess of left leg Status: Resolved (20) Atrial flutter Status: Chronic (21) Pulmonary hypertension Status: Chronic (22) DVT (deep venous thrombosis) Status: Chronic (23) Multiple myeloma Status: Chronic (24) PVD (peripheral vascular disease) Status: Chronic (25) History of splenectomy Status: Chronic (26) History of cholecystectomy Status: Chronic Home Meds Active Scripts Diclofenac Sodium 1% Gel (VOLTAREN 1% GEL) 100 Gm Gel..gram., 2 GM TOP TID for 30 Days, #1 TUBE Prov:ADY TIRADO MD 03/08/18 Pantoprazole Sodium (PROTONIX) 40 Mg Tablet.dr, 40 MG PO BID for 60 Days, #60 TAB.SR Prov:ADY TIRADO MD 02/08/18 Clopidogrel Bisulfate (CLOPIDOGREL) 75 Mg Tablet, 75 MG PO QDAY for 90 Days, #90 TAB 3 Refills Prov:ADY TIRADO MD 01/11/18 Apixaban (ELIQUIS) 5 Mg Tablet, 5 MG PO BID, #60 TAB 3 Refills Prov:ADY TIRADO MD 01/09/18 Rosuvastatin Calcium (CRESTOR) 40 Mg Tablet, 1 TAB PO QDAY for 90 Days, #90 TAB 4 Refills Prov:ADY TIRADO MD 01/06/18 Carvedilol (CARVEDILOL) 6.25 Mg Tab, 1 TAB PO BID, #30 TAB 6 Refills Prov:ADY TIRADO MD 12/20/17 Triamcinolone Acetonide 0.1% Oint 15 Gm Tube (TRIAMCINOLONE ACETONIDE 0.1% 15 GM TUBE) 15 Gm Oint...g., 15 GM TP DAILY for 14 Days, #1 TUBE Prov:ELIS VALLE MD 12/07/17 Clobetasol Propionate (CLOBETASOL PROPIONATE) 15 Gm Oint...g., 1 BRANDNA TP BID for 30 Days, #1 TUBE 2 Refills Prov:ADY TIRADO MD 12/07/17 Finasteride (FINASTERIDE) 5 Mg Tablet, 5 MG PO QHS, #90 TAB 1 Refill Prov:ELIS VALLE MD 07/14/17 Ferrous Sulfate (FERROUS SULFATE) 325 Mg Tablet, 325 MG PO DAILY, #30 TAB 5 Refills Prov:ELIS VALLE MD 06/09/17 Levothyroxine Sodium (LEVOTHYROXINE SODIUM) 0.112 Mg Tab, 0.112 MG PO QAM, #90 TAB 3 Refills Prov:ELIS VALLE MD 06/04/17 Reported Medications Acetaminophen (TYLENOL EXTRA STRENGTH) 500 Mg Tablet, 2 TAB PO BID, CAP 01/11/18 Duloxetine Hcl (CYMBALTA) 60 Mg Capsule.dr, 60 MG PO QDAY for 90 Days, #90 CAP 12/20/17 Riociguat (Adempas) 2.5 Mg Tablet, 1 TAB PO TID 11/25/17 Cholecalciferol (Vitamin D3) (VITAMIN D) 5,000 Unit Tablet, 1 TAB PO DAILY 11/25/17 Furosemide (LASIX) 40 Mg Tablet, 1 TAB PO QDAY, TAB 10/20/17 Oxygen (OXYGEN) Inha, 5 L INH, L 08/07/17 Allergies: Coded Allergies: trazodone (Verified Allergy, Intermediate, 04/04/18) acetaminophen (Verified Adverse Reaction, Unknown, Hallucinations, 04/04/18) oxycodone (Verified Adverse Reaction, Unknown, Hallucinations, 04/04/18) Patient History: Cerebral hemorrhage FATHER, , Age:47 FH polycystic kidney FATHER, , Age:47 BROTHER OR SISTER BROTHER OR SISTER FH: alcohol abuse CHILD FH: cancer MOTHER, , Age:64 FH: diabetes mellitus CHILD FH: hypertension FATHER, , Age:47 Hx Smoking: Yes Smoking Status: Never Smoker Exposure to Second Hand Smoke?: Yes Caffeine Intake: Soda Caffeine/Cups Per Day: 1 Hx Alcohol Use: No Hx Substance Use Disorder: No Social Drug Use: Never Review of Systems Constitutional: No Fever, No Chills, No Night Sweats Neurological: Weakness; No Syncope, No Confusion Eyes: No Vision Change, No Loss of Vision ENT: No Hearing Loss Cardiovascular: No Chest Pain, No Palpitations Respiratory: Shortness of Breath, Cough Gastrointestinal: No Nausea, No Vomiting, No Diarrhea, No Hematemesis, No Hematochezia, No Melena, No Abdominal Pain Genitourinary: No Dysuria, No Hematuria, No Urinary Incontinence Musculoskeletal: Pain, Impaired Mobility Exam Vital Signs Vital Signs Date Time Temp Pulse Resp B/P (MAP) Pulse Ox O2 Delivery O2 Flow Rate FiO2 04/04/18 16:30 92 Oxy Mask 8.0 04/04/18 16:09 97.9 70 20 101/86 (91) General Appearance: Alert, Awake Neuro: No Gross deficits Eyes: PERRLA ENT: Oropharynx Clear Neck: No Masses Cardiovascular: Other (Fairly regular somewhat distant tones/JVD is present) Respiratory: Other (few scattered rhonchi but fairly clear otherwise) Chest: No Tenderness GI: Abd Soft and Non-Tender, Other (healed laparotomy scars) : No CVA Tenderness Extremities: Warm, Perfused Integumentary: Generalized Fragile Skin Psych: Alert & Oriented X3 Medical Decision Making Data Points Result Diagram: 04/04/18 1311 04/04/18 1311 Item Value Date Time Albumin 3.9 g/dl 04/04/18 1311 Total Protein 7.4 g/dl 04/04/18 1311 Troponin I 0.013 ng/ml 04/04/18 1311 Alkaline Phosphatase 87 U/L 04/04/18 1311 Alanine Aminotransferase (ALT/SGPT) 23 U/L 04/04/18 1311 Aspartate Amino Transf (AST/SGOT) 17 U/L 04/04/18 1311 Total Bilirubin 0.5 mg/dl 04/04/18 1311 Calcium Level 9.4 mg/dl 04/04/18 1311 B-Type Natriuretic Peptide 921 pg/ml H 04/04/18 1311 Lactate 1.0 mmol/L 04/04/18 1419 EKG / Imaging Imaging PATIENT NAME: Meño Arechiga : 1940 MR: [id number] V: [id number] EXAM DATE: [id number] ORDERING PHYSICIAN: DEONDRE JOHNSON TECHNOLOGIST: Location: [facility] [place] Patient: Meño Arechiga : 1940 Visit/Account:[id number] Date of Sevice: 04/04/2018 Technique: CHEST SINGLE AP HISTORY: RESP DISTRESS Comparison studies: Chest radiographs November 07, 2017 FINDINGS: No acute airspace consolidation. There remains central vascular congestion. No pleural effusion. The cardiomediastinal silhouette is enlarged and unchanged. IMPRESSION: 1. No significant interval change with findings consistent with pulmonary edema. Report Dictated By: Satish Stoll DO at 04/04/2018 2:02 PM Report E-Signed By: Satish Stoll DO at 04/04/2018 2:03 PM [id number] Assessment and Plan Problems: (1) Community acquired pneumonia Status: Acute Assessment & Plan: It appears he may have an atypical pneumonia/pneumonitis vs. pulmonary edema. Will admit for IV antibiotics, respiratory treatments/oxygen supplementation. May need re-evaluation of LV function if concern. He has had preserved LV function in past with severe pulmonary HTN. (2) Pulmonary hypertension Status: Chronic Assessment & Plan: Will continue oxygen therapy, Adempas, anticoagulation. May need re-check echocardiogram. (3) Multiple myeloma Status: Chronic Assessment & Plan: Reportedly indolent. Not currently on treatment. He does follow with Dr. Matthew Watts. (4) CAD (coronary artery disease) Status: Chronic Assessment & Plan: Will continue his Plavix, high dose Crestor. (5) PVD (peripheral vascular disease) Status: Chronic Assessment & Plan: Continue antiplatelet and statin therapy. Copies to: ADY TIRADO MD ; Venous Thromboembolism Antithrombotics Is Pt On Any Antithrombotics?: Yes Heart Failure Ejection Fraction %: 60 RVSP (mmHg): 82 NYHA Class: II Is Patient on MAHI Inhibitor?: No Is Patient on Beta Jigar?: Yes Exam Sepsis Risk: No Definite Risk RONDA GARCIA MD Apr 04, 2018 19:01
--- NOTE | 2018-04-04 20:08 | EKG ---
FACILITY: [facility] PATIENT NAME: BEKAH DAVIS : [id number] MR: [id number] V: [id number] EXAM DATE: ORDERING PHYSICIAN: DEONDRE JOHNSON TECHNOLOGIST: THOMAS Test Reason : SOB Blood Pressure : / mmHG Vent. Rate : 079 BPM Atrial Rate : 192 BPM P-R Int : 000 ms QRS Dur : 118 ms QT Int : 404 ms P-R-T Axes : 000 118 -57 degrees QTc Int : 463 ms Probable atrial flutter with variable conduction Right axis deviation Incomplete right bundle branch block Right ventricular hypertrophy Diffuse ST-T abnormalities Prolonged QT Abnormal ECG Confirmed by RONDA GARCIA ([id number]) on 04/05/2018 4:39:22 AM Referred By: DEONDRE Confirmed By:RONDA GARCIA
[2018-04-04 21:01] VITALS: BP 120/70
[2018-04-04] MEDS: APIXABAN 2.5 MG TABLET PO SCH (21:18)
[2018-04-04] MEDS: PANTOPRAZOLE SOD 40 MG TABEC PO SCH (21:18)
[2018-04-04] MEDS: FINASTERIDE 5 MG TAB PO SCH (21:18)
[2018-04-04] MEDS: CARVEDILOL 6.25 MG TAB PO SCH (21:18)
[2018-04-04] MEDS: ROSUVASTATIN CALCIUM 10 MG TAB PO SCH (21:19)
[2018-04-04] MEDS: RIOCIGUAT 2.5 MG PO SCH (21:20)
[2018-04-04] MEDS: prednisoLONE ACE 1% OP 5ML BTL OD SCH (21:21)
[2018-04-04] MEDS: KETOROLAC TROM 0.5% OP 3 ML BTL OD SCH (21:21)
[2018-04-04] MEDS: OFLOXACIN 0.3% OP SOLN 5ML BTL OD SCH (21:22)
[2018-04-04 22:02] VITALS: BP 114/62
--- NOTE | 2018-04-04 22:29 | EKG ---
[place] [facility] [place] BEKAH DAVIS : [id number] MR: [id number] V: [id number] EXAM DATE: ORDERING PHYSICIAN: RONDA GARCIA TECHNOLOGIST: KARINA Test Reason : RYTHM CHANGE Blood Pressure : / mmHG Vent. Rate : 069 BPM Atrial Rate : 084 BPM P-R Int : 000 ms QRS Dur : 128 ms QT Int : 424 ms P-R-T Axes : 000 109 -79 degrees QTc Int : 454 ms Probable atrial flutter with variable conduction Incomplete RBBB Diffuse ST-T abnormalities Abnormal ECG Similar to previous Confirmed by RONDA GARCIA ([id number] on 04/05/2018 4:40:57 AM Referred By: Confirmed By:RONDA GARCIA
[2018-04-04 22:58] VITALS: BP 108/64
[2018-04-05] MEDS: LEVOTHYROXINE SOD 0.112 MG TAB PO SCH (05:52)
[2018-04-05 05:53] VITALS: BP 114/74
[2018-04-05 06:21] LABS: PLATELET COUNT, AUTOMATED 348 K/uL (150-450)
[2018-04-05 07:29] VITALS: BP 108/63
[2018-04-05] MEDS: PANTOPRAZOLE SOD 40 MG TABEC PO SCH ×2 (08:16→21:09)
[2018-04-05] MEDS: CARVEDILOL 6.25 MG TAB PO SCH ×2 (08:16→21:09)
[2018-04-05] MEDS: CLOPIDOGREL BISULFATE 75MG TAB PO SCH (08:17)
[2018-04-05] MEDS: DULoxetine HCL 30 MG CAPCR PO SCH (08:17)
[2018-04-05] MEDS: CHOLECALCIFEROL 1000 UNIT TAB PO SCH (08:17)
[2018-04-05] MEDS: APIXABAN 2.5 MG TABLET PO SCH ×2 (08:17→21:09)
[2018-04-05] MEDS: prednisoLONE ACE 1% OP 5ML BTL OD SCH ×4 (08:18→21:12)
[2018-04-05] MEDS: OFLOXACIN 0.3% OP SOLN 5ML BTL OD SCH ×4 (08:18→21:11)
[2018-04-05] MEDS: KETOROLAC TROM 0.5% OP 3 ML BTL OD SCH ×4 (08:18→21:11)
[2018-04-05] MEDS: RIOCIGUAT 2.5 MG PO SCH ×3 (08:18→21:11)
[2018-04-05] MEDS ORDERED: ACETAMINOPHEN 500 MG TAB PO PRN (09:35)
[2018-04-05] MEDS ORDERED: NS(*) 0.9% 500 ML BAG 500 ML IV ONE (09:55)
[2018-04-05] MEDS: predniSONE 20 MG TAB PO SCH (10:22)
[2018-04-05 11:38] VITALS: BP 131/71
--- NOTE | 2018-04-05 13:36 | Hospitalist Progress Note ---
Subjective Progress Notes Subjective He reports that he is sore in his joints like a flare of his arthritis and is wanting prednisone (which has helped previously). He reports improvement in his WOB. Physical Exam Vital Signs Date Time Temp Pulse Resp B/P (MAP) Pulse Ox O2 Delivery O2 Flow Rate FiO2 04/05/18 11:38 97.6 16 131/71 (91) 95 High-Flow Nasal Cannula 6.0 04/04/18 22:58 58 Intake and Output 04/05/18 07:00 Intake Total 0 ml Output Total 750 ml Balance -750 ml Intake Oral 0 ml Output Urine Total 750 ml # Voids 3 General Appearance: Alert, Awake, No Acute Distress Cardiovascular: Other (distant heart tones) Respiratory: Other (Decreased BS in bases) Extremities: Edema (1+ pitting in shins) Result Diagram: 04/05/1847 04/05/18546 Assessment and Plan Problems: (1) Community acquired pneumonia Status: Acute Assessment & Plan: It appears he may have an atypical pneumonia/pneumonitis vs. pulmonary edema. On IV levofloxacin, respiratory treatments/oxygen supplementation. May need re-evaluation of LV function if concern. He has had preserved LV function in past with severe pulmonary HTN. (2) Acute renal failure Status: Acute Assessment & Plan: Creatinine increased to 1.7 from his baseline of 1.0-1.4. He got a dose of Lasix in the ER; will give a 500cc bolus and recheck. (3) Pulmonary hypertension Status: Chronic Assessment & Plan: Will continue oxygen therapy, Adempas, anticoagulation. May need re-check echocardiogram. (4) Multiple myeloma Status: Chronic Assessment & Plan: Reportedly indolent. Not currently on treatment. He does follow with Dr. Matthew Watts. (5) CAD (coronary artery disease) Status: Chronic Assessment & Plan: Will continue his Plavix, high dose Crestor. (6) PVD (peripheral vascular disease) Status: Chronic Assessment & Plan: Continue antiplatelet and statin therapy. (7) Atrial flutter Status: Chronic Assessment & Plan: Rate controlled with Coreg and on Eliquis for stroke prophylaxis. Heart Failure Ejection Fraction %: 60 RVSP (mmHg): 82 NYHA Class: II Is Patient on MAHI Inhibitor?: No Is Patient on Beta Jigar?: Yes Exam Sepsis Risk: No Definite Risk WILLIAM REDMAN MD Apr 05, 2018 13:36
[2018-04-05 14:45] VITALS: Ht 167.6 cm; Wt 70.3 kg
[2018-04-05 15:01] VITALS: BP 103/56
[2018-04-05 19:54] VITALS: BP 148/76
[2018-04-05] MEDS: ROSUVASTATIN CALCIUM 10 MG TAB PO SCH (21:09)
[2018-04-05] MEDS: FINASTERIDE 5 MG TAB PO SCH (21:09)
[2018-04-05] MEDS ORDERED: MAGNESIUM HYDROXIDE* 30ML UDCP PO PRN (22:15)
[2018-04-05] MEDS ORDERED: BISACODYL 10 MG SUPP PR PRN (22:15)
[2018-04-05] MEDS: POLYETHYLENE GLYCOL 17 GM PKT PO SCH (23:00)
[2018-04-05] MEDS: DOCUSATE SODIUM 100 MG CAP PO SCH (23:00)
[2018-04-05 23:03] VITALS: BP 152/84
[2018-04-06] VITALS (8 sets, daily range): BP systolic 139–177; BP diastolic 79–106
[2018-04-06] MEDS: LEVOTHYROXINE SOD 0.112 MG TAB PO SCH (05:17)
[2018-04-06 07:21] LABS: PLATELET COUNT, AUTOMATED 266 K/uL (150-450)
[2018-04-06] MEDS ORDERED: NITROGLYCERIN 0.4 MG SUBL SL PRN (08:00)
[2018-04-06] MEDS: CARVEDILOL 6.25 MG TAB PO SCH ×2 (08:21→21:29)
[2018-04-06] MEDS: DOCUSATE SODIUM 100 MG CAP PO SCH ×2 (08:21→21:00)
[2018-04-06] MEDS: APIXABAN 2.5 MG TABLET PO SCH ×2 (08:21→21:29)
[2018-04-06] MEDS: PANTOPRAZOLE SOD 40 MG TABEC PO SCH ×2 (08:21→21:29)
[2018-04-06] MEDS: predniSONE 20 MG TAB PO SCH (08:22)
[2018-04-06] MEDS: DULoxetine HCL 30 MG CAPCR PO SCH (08:22)
[2018-04-06] MEDS: CLOPIDOGREL BISULFATE 75MG TAB PO SCH (08:22)
[2018-04-06] MEDS: RIOCIGUAT 2.5 MG PO SCH ×3 (08:22→21:28)
[2018-04-06] MEDS: prednisoLONE ACE 1% OP 5ML BTL OD SCH ×4 (08:22→21:28)
[2018-04-06] MEDS: CHOLECALCIFEROL 1000 UNIT TAB PO SCH (08:22)
[2018-04-06] MEDS: KETOROLAC TROM 0.5% OP 3 ML BTL OD SCH ×4 (08:23→21:27)
[2018-04-06] MEDS: OFLOXACIN 0.3% OP SOLN 5ML BTL OD SCH ×4 (08:23→21:27)
[2018-04-06] MEDS: POLYETHYLENE GLYCOL 17 GM PKT PO SCH (09:00)
--- NOTE | 2018-04-06 11:44 | Hospitalist Progress Note ---
Subjective Progress Notes Subjective This patient was admitted for pneumonia. He had chest pain this morning. Patient Complains of: Cardiovascular: No: Chest Pain Respiratory: No: Shortness of Breath Physical Exam Vital Signs Date Time Temp Pulse Resp B/P (MAP) Pulse Ox O2 Delivery O2 Flow Rate FiO2 04/06/18 11:12 97.4 92 16 142/79 (100) 92 Nasal Cannula 04/06/18 07:30 5.0 Intake and Output 04/06/18 07:00 Intake Total 1275 ml Output Total 950 ml Balance 325 ml Intake Oral 775 ml IV Total 500 ml Output Urine Total 950 ml # Voids 2 # Bowel Movements 1 Cardiovascular: Regular Rate and Rhythm Respiratory: Clear to Auscultation Result Diagram: 04/06/18 0633 04/06/18632 Item Value Date Time Troponin I < 0.012 ng/ml 04/06/18 0720 Assessment and Plan Problems: (1) Chest pain Assessment & Plan: He did complain of chest pain this morning. An EKG and troponin series are ordered. (2) Community acquired pneumonia Status: Acute Assessment & Plan: His chest x-ray showed edema, but no specific infiltrate. He did have an elevated WBC< which is improving on IV levofloxacin. His cultures have been negative. (3) Acute renal failure Status: Acute Assessment & Plan: Improving after an IV bolus. (4) Pulmonary hypertension Status: Chronic Assessment & Plan: He is on chronic treatment with oxygen, Adempas, and Eliquis. (5) Multiple myeloma Status: Chronic Assessment & Plan: Reportedly indolent. He is not currently on treatment. He does follow with Dr. Matthew Watts. (6) CAD (coronary artery disease) Status: Chronic Assessment & Plan: He is on chronic treatment with Plavix and Crestor. (7) Atrial flutter Status: Chronic Assessment & Plan: Rate controlled with Coreg and on Eliquis for stroke prophylaxis. Heart Failure Ejection Fraction %: 60 RVSP (mmHg): 82 NYHA Class: II Is Patient on MAHI Inhibitor?: No Is Patient on Beta Jigar?: Yes Exam Sepsis Risk: No Definite Risk NAN CORTES DO Apr 06, 2018 11:44
--- NOTE | 2018-04-06 14:03 | EKG ---
FACILITY: [facility] PATIENT NAME: BEKAH DAVIS : [id number] MR: [id number] V: [id number] EXAM DATE: ORDERING PHYSICIAN: NAN CORTES TECHNOLOGIST: LADAN Test Reason : CP Blood Pressure : / mmHG Vent. Rate : 067 BPM Atrial Rate : 234 BPM P-R Int : 000 ms QRS Dur : 120 ms QT Int : 440 ms P-R-T Axes : 000 117 -62 degrees QTc Int : 464 ms Atrial flutter with variable AV block with premature ventricular or aberrantly conducted complexes Right bundle branch block Septal infarct (cited on or before 06-APR-2018) T wave abnormality, consider inferolateral ischemia Abnormal ECG When compared with ECG of 04-APR-2018 22:05, Serial changes of Septal infarct present Confirmed by NAN CORTES ([id number]) on 04/06/2018 2:18:41 PM Referred By: ЮЛИЯ Confirmed By:NAN CORTES
--- NOTE | 2018-04-06 15:00 | Antimicrobial Stewardship ---
Antimicrobial Stewardship Empiricly appropriate: Yes (CAP) Significant PMH: Yes (Multiple Myeloma-Smoldering ) Support empiric regimen: Yes Comment Levofloxacin 750mg IV Q48H Approriate Cultures done: Yes (Blood Cx x 2 NGTD) Renal/Hepatic dosing: Yes Comment CrCl ~45ml/min- Q48H is appropriate IV to PO Opportunity: Yes Comment Consider switching IV to PO tomorrow, as patient is afebrile and WBC decreasing (on prednisone) Determine cumulative duration: 04/04/18 started - today is day 3 Determine standard duration: 5 days Comment 77 yo M with several comorbidities admitted with pneumonia, continue levofloxacin x 5 days total, may switch to PO antibiotics tomorrow. Continue present management. Will follow renal function, cultures, and toxicities. Cristina Lomax, PharmD, BCOP CRISTINA LOMAX Apr 06, 2018 15:00
[2018-04-06] MEDS ORDERED: LEVOFLOXACIN/D5W 750 MG/150 ML 150 ML IVPB SCH (16:00)
[2018-04-06] MEDS: FINASTERIDE 5 MG TAB PO SCH (21:29)
[2018-04-06] MEDS: ROSUVASTATIN CALCIUM 10 MG TAB PO SCH (21:29)
[2018-04-07 02:55] VITALS: BP 153/101
[2018-04-07] MEDS: LEVOTHYROXINE SOD 0.112 MG TAB PO SCH (05:15)
[2018-04-07 06:10] LABS: PLATELET COUNT, AUTOMATED 365 K/uL (150-450)
[2018-04-07 08:31] VITALS: BP 166/85
--- NOTE | 2018-04-07 08:48 | Medical Nutrition Therapy ---
Nutrition Anthropometrics Height (Inches): 66.00 Height (Calculated Centimeters: 167.651329 Weight (Pounds): 155 Weight (Calculated Kilograms): 70.392 Christiano Nutrition Score: Adequate Christiano Nutrition Risk Score: 19 Dietary Referral Nutrition Risk Factors: Nutrition Risk Comment: Nutritional Diagnosis Nutritional Risk Acuity 1: Acute/ES Renal Nutritional Risk Acuity 2: Chronic Renal Failure Nutritional Risk Acuity 3: Fair Appetite, Nutrit Anemia, Cancer, GERD Past Medical History: Pulmonary embolism, GERD, CHF, dyslipidemia, weakness, DVT, Acute renal failure, multiple myeloma, CAD, iron deficiency anemia, Swelling of right upper extremity, prediabetes or diabetes Nutritional Acuity: 1-High Nutrition Diagnosis: Decreased Nutrient Needs Nutrition Etiology: Physiological Causes Nutrition Problem/Etiology/Sym: Decrease protein r/t dx ARF AEB BUN 45, creatinine 1.3 Energy Requirement: 1800 (M- St J) Protein Requirement: 56 (.8 g/kg) Fluid Requirement: 2100 (30ml/kg) Diet Type: Diet as Tolerated CABRERA/REG Nutrition Intervention: Change diet Nutrition Monitoring & Eval Nutrition Goals: Eat 75-100% Meal Nutrition Follow-Up: Good Intake RD Patient Assessment Time: [address] Assessment Type: RD Re-Assessment Patient Nutrition Acuity: 1-High Follow Up Date: Apr 10, 2018 Nutritional Comment: 04/05. Pt admitted with pneumonia. Pt also has dx ARF with BUN 38, cratinine 1.7. Pt states is unknown if he has prediabetes or diabetes. Current FBG of 133 is in diabetes range. Pt on regular diet and eating 100%. Recommend change to ADA diet. Will cont to monitor. NISSA 04/07 Pt cont on Cabrera. BG elevated up to 192. Recommend change to ADA diet for better BG controll. Alb declined to 2.9. BUN cont elevated at 45, creatinine cont elevated at 1.3. Pt is eating 65-100% of meals. Will cont to monitor and encourage intake. NISSA 04/07 TELLY WONG Apr 06, 2018 18:04
[2018-04-07] MEDS: CHOLECALCIFEROL 1000 UNIT TAB PO SCH (08:50)
[2018-04-07] MEDS: predniSONE 20 MG TAB PO SCH (08:50)
[2018-04-07] MEDS: APIXABAN 2.5 MG TABLET PO SCH (08:50)
[2018-04-07] MEDS: DULoxetine HCL 30 MG CAPCR PO SCH (08:50)
[2018-04-07] MEDS: prednisoLONE ACE 1% OP 5ML BTL OD SCH ×2 (08:51→13:54)
[2018-04-07] MEDS: OFLOXACIN 0.3% OP SOLN 5ML BTL OD SCH ×2 (08:51→13:53)
[2018-04-07] MEDS: PANTOPRAZOLE SOD 40 MG TABEC PO SCH (08:51)
[2018-04-07] MEDS: KETOROLAC TROM 0.5% OP 3 ML BTL OD SCH ×2 (08:51→13:53)
[2018-04-07] MEDS: DOCUSATE SODIUM 100 MG CAP PO SCH (08:51)
[2018-04-07] MEDS: CLOPIDOGREL BISULFATE 75MG TAB PO SCH (08:51)
[2018-04-07] MEDS: RIOCIGUAT 2.5 MG PO SCH ×2 (08:51→13:54)
[2018-04-07] MEDS: POLYETHYLENE GLYCOL 17 GM PKT PO SCH (09:00)
[2018-04-07] MEDS ORDERED: FUROSEMIDE 40 MG TAB PO SCH (09:00)
[2018-04-07] MEDS ORDERED: CARVEDILOL 6.25 MG TAB PO SCH (09:00)
[2018-04-07] MEDS: LEVALBUTEROL 1.25 MG/3 ML NEB NEB SCH ×2 (09:32→11:33)
[2018-04-07 12:53] VITALS: BP 154/93
[2018-04-07] MEDS ORDERED: KETO1DRO3 OP (13:51)
[2018-04-07] MEDS ORDERED: OFLO5DRO41 OU (13:52)
[2018-04-07] MEDS ORDERED: PRED5DRO3 OU (13:53)
[2018-04-07] MEDS ORDERED: PRED20TA6 PO (13:58)
[2018-04-07] MEDS ORDERED: LEVO750T27 PO (13:58)
--- NOTE | 2018-04-07 14:14 | Hospitalist Depart ---
Discharge Summary Reason for Hosp/Final Diag: (1) Community acquired pneumonia Status: Acute Hospital Course & Plan: It appears he may have had an atypical pneumonia/pneumonitis vs. pulmonary edema. He had an elevated WBC upon admission. Currently, on IV levofloxacin, respiratory treatments/oxygen supplementation. He was also started on prednisone (likely has COPD). He is feeling much less SOB. O2 requirement is back to baseline. He has one more day of Levofloxacin and will go home on a prednisone taper. (2) Chest pain Hospital Course & Plan: He did complain of chest pain with exertion on the morning of 04/06, that lasted about an hour. ECG was unchanged and his troponins were negative. He has not had any other events since admission. If the symptoms recur, then he should go to the ER. (3) Acute renal failure Status: Acute Hospital Course & Plan: Improving after an IV bolus. (4) Pulmonary hypertension Status: Chronic Hospital Course & Plan: He is on chronic treatment with oxygen (but doesn't wear it 24 hours a day), Adempas, and Eliquis. He has been told to wear O2 all the time. (5) Multiple myeloma Status: Chronic Hospital Course & Plan: Reportedly indolent. He is not currently on treatment. He does follow with Dr. Matthew Watts. (6) CAD (coronary artery disease) Status: Chronic Hospital Course & Plan: He is on chronic treatment with Plavix and Crestor. (7) Atrial flutter Status: Chronic Hospital Course & Plan: Rate controlled with Coreg and on Eliquis for stroke prophylaxis. Departure Weight (Pounds): 155 Weight (Ounces): 3.0 Result Diagram: 04/07/18 0555 04/06/18 0633 Item Value Date Time White Blood Count 20.6 k/uL H 04/04/18 1311 White Blood Count 19.8 k/uL H 04/05/18 0547 White Blood Count 16.4 k/uL H 04/06/18 0633 White Blood Count 16.2 k/uL H 04/07/18 0555 Hemoglobin 12.1 g/dL L 04/04/18 1311 Hemoglobin 10.8 g/dL L 04/05/18 0547 Hemoglobin 11.3 g/dL L 04/06/18 0633 Hemoglobin 11.8 g/dL L 04/07/18 0555 Platelet Count 365 K/uL 04/07/18 0555 Platelet Count 266 K/uL 04/06/18 0633 Platelet Count 348 K/uL 04/05/18 0547 Platelet Count 355 K/uL 04/04/18 1311 Neutrophils (%) (Auto) 86.6 % H 04/04/18 1311 Neutrophils (%) (Auto) 92.4 % H 04/05/18 0547 Neutrophils (%) (Auto) 86.0 % H 04/06/18 0633 Neutrophils (%) (Auto) 78.1 % H 04/07/18 0555 Creatinine 1.20 mg/dl 04/04/18 1311 Blood Urea Nitrogen 25 mg/dl H 04/04/18 1311 B-Type Natriuretic Peptide 921 pg/ml H 04/04/18 1311 Troponin I 0.013 ng/ml 04/04/18 1311 Total Bilirubin 0.5 mg/dl 04/04/18 1311 Aspartate Amino Transf (AST/SGOT) 17 U/L 04/04/18 1311 Alanine Aminotransferase (ALT/SGPT) 23 U/L 04/04/18 1311 Alkaline Phosphatase 87 U/L 04/04/18 1311 Lactate 1.0 mmol/L 04/04/18 1419 Sodium Level 139 mmol/L 04/04/18 1311 Potassium Level 4.0 mmol/L 04/04/18 1311 Chloride Level 106 mmol/L 04/04/18 1311 Carbon Dioxide Level 21 mmol/L L 04/04/18 1311 Creatinine 1.70 mg/dl H 04/05/18 0547 Creatinine 1.70 mg/dl H 04/05/18 1424 Creatinine 1.30 mg/dl H 04/06/18 0633 Blood Urea Nitrogen 38 mg/dl H 04/05/18 0547 Blood Urea Nitrogen 44 mg/dl H 04/05/18 1424 Blood Urea Nitrogen 45 mg/dl H 04/06/18 0633 Troponin I 0.017 ng/ml 04/06/18 1217 Troponin I < 0.012 ng/ml 04/06/18 0720 Total Bilirubin 0.3 mg/dl 04/05/18 0547 Aspartate Amino Transf (AST/SGOT) 11 U/L 04/05/18 0547 Alanine Aminotransferase (ALT/SGPT) 24 U/L 04/05/18 0547 Alkaline Phosphatase 63 U/L 04/05/18 0547 Influenza Virus Type A (PCR) Negative 04/05/186 Influenza Virus Type B (PCR) Negative 04/05/18 000 Blood cultures without growth from 04/04/18 x2. Imaging CXR - 1. No significant interval change with findings consistent with pulmonary edema. EKG Vent. Rate : 067 BPM Atrial Rate : 234 BPM P-R Int : 000 ms QRS Dur : 120 ms QT Int : 440 ms P-R-T Axes : 000 117 -62 degrees QTc Int : 464 ms Atrial flutter with variable AV block with premature ventricular or aberrantly conducted complexes Right bundle branch block Septal infarct (cited on or before 06-APR-2018) T wave abnormality, consider inferolateral ischemia Abnormal ECG When compared with ECG of 04-APR-2018 22:05, Serial changes of Septal infarct present Confirmed by NAN CORTES ([id number]) on 04/06/2018 2:18:41 PM Vent. Rate : 079 BPM Atrial Rate : 192 BPM P-R Int : 000 ms QRS Dur : 118 ms QT Int : 404 ms P-R-T Axes : 000 118 -57 degrees QTc Int : 463 ms Probable atrial flutter with variable conduction Right axis deviation Incomplete right bundle branch block Right ventricular hypertrophy Diffuse ST-T abnormalities Prolonged QT Abnormal ECG Confirmed by RONDA GARCIA ([id number]) on 04/05/2018 4:39:22 AM Condition: Improved Discharge: Home Discharge Instructions Home Meds Active Scripts Prednisone (PREDNISONE) 20 Mg Tablet, 10-40 MG PO QDAY, #7 2 pills for 2 days, then 1 for 2 days, the /2 for 2 days Prov:WILLIAM REDMAN MD 04/07/18 Levofloxacin 750 Mg Tab (LEVOFLOXACIN 750 MG TAB) 750 Mg Tablet, 750 MG PO DAILY, #1 TAB Take at 4pm on 04/08 Prov:WILLIAM REDMAN MD 04/07/18 Diclofenac Sodium 1% Gel (VOLTAREN 1% GEL) 100 Gm Gel..gram., 2 GM TOP TID for 30 Days, #1 TUBE Prov:ADY TIRADO MD 03/08/18 Pantoprazole Sodium (PROTONIX) 40 Mg Tablet.dr, 40 MG PO BID for 60 Days, #60 TAB.SR Prov:ADY TIRADO MD 02/08/18 Clopidogrel Bisulfate (CLOPIDOGREL) 75 Mg Tablet, 75 MG PO QDAY for 90 Days, #90 TAB 3 Refills Prov:ADY TIRADO MD 01/11/18 Apixaban (ELIQUIS) 5 Mg Tablet, 5 MG PO BID, #60 TAB 3 Refills Prov:ADY TIRADO MD 01/09/18 Rosuvastatin Calcium (CRESTOR) 40 Mg Tablet, 1 TAB PO QDAY for 90 Days, #90 TAB 4 Refills Prov:ADY TIRADO MD 01/06/18 Carvedilol (CARVEDILOL) 6.25 Mg Tab, 1 TAB PO BID, #30 TAB 6 Refills Prov:ADY TIRADO MD 12/20/17 Triamcinolone Acetonide 0.1% Oint 15 Gm Tube (TRIAMCINOLONE ACETONIDE 0.1% 15 GM TUBE) 15 Gm Oint...g., 15 GM TP DAILY for 14 Days, #1 TUBE Prov:ELIS VALLE MD 12/07/17 Clobetasol Propionate (CLOBETASOL PROPIONATE) 15 Gm Oint...g., 1 BRANDAN TP BID for 30 Days, #1 TUBE 2 Refills Prov:ADY TIRADO MD 12/07/17 Finasteride (FINASTERIDE) 5 Mg Tablet, 5 MG PO QHS, #90 TAB 1 Refill Prov:ELIS VALLE MD 07/14/17 Ferrous Sulfate (FERROUS SULFATE) 325 Mg Tablet, 325 MG PO DAILY, #30 TAB 5 Refills Prov:ELIS VALLE MD 06/09/17 Levothyroxine Sodium (LEVOTHYROXINE SODIUM) 0.112 Mg Tab, 0.112 MG PO QAM, #90 TAB 3 Refills Prov:ELIS VALLE MD 06/04/17 Reported Medications Prednisolone Acetate/Pf (Prednisolone Acet 1% Eye Drop) 1 % Drops.susp, 2 DROP OU QID 04/07/18 Ofloxacin (Ofloxacin) 0.3 % Drops, 1 DROP OU QID 04/07/18 Ketorolac Tromethamine/Pf (ACUVAIL 0.45% OPHTH SOLUTION) 1 Each Droperette, 1 DROP OP QID 04/07/18 Acetaminophen (TYLENOL EXTRA STRENGTH) 500 Mg Tablet, 2 TAB PO BID PRN for pain, CAP 01/11/18 Duloxetine Hcl (CYMBALTA) 60 Mg Capsule.dr, 60 MG PO QDAY for 90 Days, #90 CAP 12/20/17 Riociguat (Adempas) 2.5 Mg Tablet, 1 TAB PO TID 11/25/17 Cholecalciferol (Vitamin D3) (VITAMIN D) 5,000 Unit Tablet, 1 TAB PO DAILY 11/25/17 Furosemide (LASIX) 40 Mg Tablet, 1 TAB PO QDAY, TAB 10/20/17 Oxygen (OXYGEN) Inha, 5 L INH, L 08/07/17 Special Instructions: Go to the ER for chest pain, worsening SOB, fevers, chills Wear your oxygen 24 hours a day. Weigh yourself daily and call your PCP for an increase of 5 pounds from baseline. Copies to: ADY TIRADO MD ; Venous Thromboembolism Antithrombotics Is Pt On Any Antithrombotics?: Yes Heart Failure Ejection Fraction %: 60 RVSP (mmHg): 82 NYHA Class: II Is Patient on MAHI Inhibitor?: No Is Patient on Beta Jigar?: Yes WILLIAM REDMAN MD Apr 07, 2018 14:14
== END 2018-04-07 15:30 | disposition home or self-care (01) | DRG 194 ==
LOC: ER 13:46 → CANBEDREQ 14:51 → MED 15:27
PROVIDERS: ADMIT Internal Medicine; ATTEND Internal Medicine
DX: J18.9 Pneumonia, unspecified organism (principal); N17.9 Acute kidney failure, unspecified; C90.00 Multiple myeloma not having achieved remission; I48.92 Unspecified atrial flutter; I13.0 Hypertensive heart and chronic kidney disease with heart failure and stage 1 through stage 4 chronic kidney disease, or unspecified chronic kidney disease; I25.10 Atherosclerotic heart disease of native coronary artery without angina pectoris; I50.810 Right heart failure, unspecified; N18.9 Chronic kidney disease, unspecified; E78.00 Pure hypercholesterolemia, unspecified; I27.20 Pulmonary hypertension, unspecified; N40.0 Benign prostatic hyperplasia without lower urinary tract symptoms; M45.9 Ankylosing spondylitis of unspecified sites in spine; F41.8 Other specified anxiety disorders; I73.9 Peripheral vascular disease, unspecified; R09.02 Hypoxemia; L30.8 Other specified dermatitis; K25.7 Chronic gastric ulcer without hemorrhage or perforation; K21.9 Gastro-esophageal reflux disease without esophagitis; E03.9 Hypothyroidism, unspecified; Z86.711 Personal history of pulmonary embolism; Z88.5 Allergy status to narcotic agent; Z88.8 Allergy status to other drugs, medicaments and biological substances; I25.2 Old myocardial infarction; Z86.718 Personal history of other venous thrombosis and embolism; Z90.49 Acquired absence of other specified parts of digestive tract
CPT/HCPCS: 36415; 71045; 82040; 82247; 82310; 82374; 82435; 82565; 82947; 83605; 83880; 84075; 84132; 84155; 84295; 84450; 84460; 84484; 84520; 85025; 87040; 87502; 93005; 94640; 97161; J0696; J1940; J1956; J2405; J2930; J7040; J7050; J7512

== ENCOUNTER → 2018-04-04 | Outpatient (CLI) | payer BC, MEDICARE ==
[~2018-04-04] MED LIST changes: +FLU180SY11 IM; +KETO1DRO3 OP; +LEVO750T27 PO; +OFLO5DRO41 OU; +PRED20TA6 PO; +PRED5DRO3 OD; -RANI75TA5 PO; +RANI75TA51 PO
[2018-04-10 14:12] VITALS: BMI 24.7
== END ==
LOC: AMB 12:51
PROVIDERS: ATTEND Nurse Practitioner
DX: R06.02 Shortness of breath (principal); I45.10 Unspecified right bundle-branch block; R09.02 Hypoxemia
CPT/HCPCS: A0425; A0427

== ENCOUNTER 2018-04-09 09:14 | Observation (INO) | payer BC, MEDICARE ==
[~2018-04-09] VITALS: Ht 167.6 cm; Wt 69.5 kg
[~2018-04-09 09:14] MED LIST changes: +RANI75TA5 PO; -RANI75TA51 PO
[2018-04-09] MEDS ORDERED: NS(*) 0.9% 1000 ML BAG 1,000 ML IV ONE (09:20)
[2018-04-09] MEDS ORDERED: HYDROMORPHONE HCL 1 MG/ML SYRINGE IVP ONE (09:20)
[2018-04-09] MEDS ORDERED: METOCLOPRAMIDE 10 MG/2 ML SDV IVP ONE (09:20)
--- NOTE | 2018-04-09 09:27 | ER Report ---
History and Physical Time Seen By MD: 09:22 HPI/ROS CHIEF COMPLAINT: Diffuse abdominal pain, nausea, vomiting HISTORY OF PRESENT ILLNESS: Patient is a 77-year-old male here with complaints of diffuse abdominal pain, nausea, vomiting which started yesterday. Patient was recently discharged after being admitted for pneumonia. He reports that he is unable to keep down food or fluids at this time and as worsening abdominal pain, nausea, vomiting. He is passing bowel movements last of which was today and denies dark stools, or blood per rectum, hematuria, fevers or chills. He is on oxygen at baseline 4 L. He reports having multiple abdominal surgeries including cholecystectomy, appendectomy, splenectomy, hernias. Patient is afebrile, tachy cardic at time of evaluation. Patient received Zofran prior to arrival REVIEW OF SYSTEMS: Constitutional: No fever, no chills. Eyes: No discharge. ENT: No sore throat. Cardiovascular: No chest pain, no palpitations. Respiratory: No cough, no shortness of breath, + supplemental oxygen at baseline Gastrointestinal: Diffuse abdominal pain, nausea, vomiting Genitourinary: No hematuria. Musculoskeletal: No back pain. Skin: No rashes. Neurological: No headache. Allergies: Coded Allergies: trazodone (Verified Allergy, Intermediate, 04/04/18) oxycodone (Verified Adverse Reaction, Unknown, Hallucinations, 04/04/18) Home Meds Active Scripts Prednisone (PREDNISONE) 20 Mg Tablet, 10-40 MG PO QDAY, #7 2 pills for 2 days, then 1 for 2 days, the 1/2 for 2 days Prov:WILLIAM REDMAN MD 04/07/18 Diclofenac Sodium 1% Gel (VOLTAREN 1% GEL) 100 Gm Gel..gram., 2 GM TOP TID for 30 Days, #1 TUBE Prov:ADY TIRADO MD 03/08/18 Pantoprazole Sodium (PROTONIX) 40 Mg Tablet.dr, 40 MG PO BID for 60 Days, #60 TAB.SR Prov:ADY TIRADO MD 02/08/18 Clopidogrel Bisulfate (CLOPIDOGREL) 75 Mg Tablet, 75 MG PO QDAY for 90 Days, #90 TAB 3 Refills Prov:ADY TIRADO MD 01/11/18 Apixaban (ELIQUIS) 5 Mg Tablet, 5 MG PO BID, #60 TAB 3 Refills Prov:ADY TIRADO MD 01/09/18 Rosuvastatin Calcium (CRESTOR) 40 Mg Tablet, 1 TAB PO QDAY for 90 Days, #90 TAB 4 Refills Prov:ADY TIRADO MD 01/06/18 Carvedilol (CARVEDILOL) 6.25 Mg Tab, 1 TAB PO BID, #30 TAB 6 Refills Prov:ADY TIRADO MD 12/20/17 Triamcinolone Acetonide 0.1% Oint 15 Gm Tube (TRIAMCINOLONE ACETONIDE 0.1% 15 GM TUBE) 15 Gm Oint...g., 15 GM TP DAILY for 14 Days, #1 TUBE Prov:ELIS VALLE MD 12/07/17 Clobetasol Propionate (CLOBETASOL PROPIONATE) 15 Gm Oint...g., 1 BRANDAN TP BID for 30 Days, #1 TUBE 2 Refills Prov:ADY TIRADO MD 12/07/17 Finasteride (FINASTERIDE) 5 Mg Tablet, 5 MG PO QHS, #90 TAB 1 Refill Prov:ELIS VALLE MD 07/14/17 Ferrous Sulfate (FERROUS SULFATE) 325 Mg Tablet, 325 MG PO DAILY, #30 TAB 5 Refills Prov:ELIS VALLE MD 06/09/17 Levothyroxine Sodium (LEVOTHYROXINE SODIUM) 0.112 Mg Tab, 0.112 MG PO QAM, #90 TAB 3 Refills Prov:ELIS VALLE MD 06/04/17 Reported Medications Prednisolone Acetate/Pf (Prednisolone Acet 1% Eye Drop) 1 % Drops.susp, 2 DROP OU QID 04/07/18 Ofloxacin (Ofloxacin) 0.3 % Drops, 1 DROP OU QID 04/07/18 Ketorolac Tromethamine/Pf (ACUVAIL 0.45% OPHTH SOLUTION) 1 Each Droperette, 1 DROP OP QID 04/07/18 Acetaminophen (TYLENOL EXTRA STRENGTH) 500 Mg Tablet, 2 TAB PO BID PRN for pain, CAP 01/11/18 Riociguat (Adempas) 2.5 Mg Tablet, 1 TAB PO TID 11/25/17 Cholecalciferol (Vitamin D3) (VITAMIN D) 5,000 Unit Tablet, 1 TAB PO DAILY 11/25/17 Furosemide (LASIX) 40 Mg Tablet, 1 TAB PO QDAY, TAB 10/20/17 Oxygen (OXYGEN) Inha, 5 L INH, L 08/07/17 Discontinued Reported Medications Duloxetine Hcl (CYMBALTA) 60 Mg Capsule.dr, 60 MG PO QDAY for 90 Days, #90 CAP 12/20/17 Discontinued Scripts Levofloxacin 750 Mg Tab (LEVOFLOXACIN 750 MG TAB) 750 Mg Tablet, 750 MG PO DAILY, #1 TAB Take at 4pm on 04/08 Prov:WILLIAM REDMAN MD 04/07/18 Hx Smoking: Yes Smoking Status: Never Smoker Exposure to Second Hand Smoke?: Yes Hx Substance Use Disorder: No Hx Alcohol Use: No Constitutional Vital Sign - Last 24 Hours 04/09/18 04/09/18 04/09/18 04/09/18 09:14 09:15 09:17 09:29 Temp 97.9 Pulse ??? 120 118 Resp 22 7 B/P (MAP) 178/119 178/119 (138) Pulse Ox 85 92 O2 Delivery Room Air 04/09/18 04/09/18 04/09/18 04/09/18 09:30 09:43 09:44 09:59 Pulse 116 ??? Resp 43 15 B/P (MAP) 171/106 (127) Pulse Ox 84 O2 Flow Rate 2.0 04/09/18 04/09/18 04/09/18 04/09/18 10:14 10:18 10:20 10:29 Pulse ??? 117 Resp 8 B/P (MAP) 169/100 (123) 160/103 (122) Pulse Ox 94 04/09/18 04/09/18 04/09/18 04/09/18 10:40 10:44 10:59 11:00 Pulse 115 120 Resp 17 23 B/P (MAP) 161/99 (119) 172/112 (132) Pulse Ox 93 93 04/09/18 04/09/18 04/09/18 04/09/18 11:05 11:20 11:35 11:40 Pulse 117 118 116 Resp 16 18 16 B/P (MAP) 164/106 (125) 162/96 (118) Pulse Ox 92 95 93 04/09/18 04/09/18 04/09/18 04/09/18 11:50 12:00 12:05 12:20 Pulse 96 102 87 Resp 11 14 15 B/P (MAP) 140/93 (109) 131/101 (111) Pulse Ox 93 94 94 04/09/18 04/09/18 04/09/18 04/09/18 12:35 12:40 12:50 13:00 Pulse 117 119 Resp 18 15 B/P (MAP) 141/93 (109) 153/105 (121) Pulse Ox 92 96 04/09/18 13:05 Pulse 117 Resp 15 Pulse Ox 94 Physical Exam General Appearance: The patient is alert, has no immediate need for airway protection and no signs of toxicity. Moderate distress secondary to pain Eyes: Pupils equal and round no pallor or injection. ENT, Mouth: Mucous membranes are moist. Respiratory: There are no retractions, lungs are clear to auscultation. Cardiovascular: Tachycardic, regular rhythm Gastrointestinal: Diffuse abdominal pain, guarding, midline hernia present Neurological: No focal neurological deficits Skin: Warm and dry, no rashes. Musculoskeletal: Neck is supple non tender. Extremities are nontender, nonswollen and have full range of motion. DIFFERENTIAL DIAGNOSIS: After history and physical exam differential diagnosis was considered for abdominal pain including but not limited to appendicitis, cholecystitis, gastritis and urinary tract infection. Medical Decision Making Data Points Result Diagram: 04/09/18 0935 04/09/18 0935 Laboratory Hematology Test 04/09/18 00:00 04/09/18 09:35 04/09/18 11:00 Troponin I 0.024 ng/ml B-Type Natriuretic Peptide 457 pg/ml (0-100) Red Blood Count 5.35 M/uL (4.00-5.60) Mean Corpuscular Volume 86.2 fL (80.0-96.0) Mean Corpuscular Hemoglobin 28.2 pg (26.0-33.0) Mean Corpuscular Hemoglobin Concent 32.7 g/dL (32.0-36.0) Red Cell Distribution Width 17.6 % (11.5-14.5) Mean Platelet Volume 8.1 fL (7.2-11.1) Neutrophils (%) (Auto) 73.9 % (39.4-72.5) Lymphocytes (%) (Auto) 15.3 % (17.6-49.6) Monocytes (%) (Auto) 10.5 % (4.1-12.4) Eosinophils (%) (Auto) 0.1 % (0.4-6.7) Basophils (%) (Auto) 0.2 % (0.3-1.4) Nucleated RBC Relative Count (auto) 0.1 /100WBC Neutrophils # (Auto) 13.1 K/uL (2.0-7.4) Lymphocytes # (Auto) 2.7 K/uL (1.3-3.6) Monocytes # (Auto) 1.9 K/uL (0.3-1.0) Eosinophils # (Auto) 0.0 K/uL (0.0-0.5) Basophils # (Auto) 0.0 K/uL (0.0-0.1) Nucleated RBC Absolute Count (auto) 0.02 K/uL Peripheral Blood Smear Yes Y/N Prothrombin Time 15.8 seconds (12.0-14.4) Prothromb Time International Ratio 1.25 Activated Partial Thromboplast Time 25 seconds (23-35) Sodium Level 140 mmol/L (137-145) Potassium Level 3.9 mmol/L (3.5-5.0) Chloride Level 107 mmol/L (98-107) Carbon Dioxide Level 23 mmol/L (22-30) Blood Urea Nitrogen 32 mg/dl (9-21) Creatinine 1.10 mg/dl (0.66-1.25) Glomerular Filtration Rate Calc > 60.0 Random Glucose 137 mg/dl (75-110) Lactate 1.2 mmol/L (0.7-2.1) Calcium Level 9.3 mg/dl (8.4-10.2) Total Bilirubin 0.7 mg/dl (0.2-1.3) Aspartate Amino Transf (AST/SGOT) 18 U/L (0-35) Alanine Aminotransferase (ALT/SGPT) 30 U/L (0-56) Alkaline Phosphatase 74 U/L (0-126) Total Protein 6.5 g/dl (6.3-8.2) Albumin 3.5 g/dl (3.5-5.0) Lipase 67 U/L (23-300) Urine Color Yellow Urine Clarity Clear Urine pH 5.0 pH (4.8-9.5) Urine Specific Morris 1.019 Urine Protein 100 mg/dL (NEGATIVE) Urine Glucose (UA) Negative mg/dL (NEGATIVE) Urine Ketones Negative mg/dL (NEGATIVE) Urine Blood Negative (NEGATIVE) Urine Nitrite Negative (NEGATIVE) Urine Bilirubin Negative (NEGATIVE) Urine Urobilinogen Negative mg/dL (0.2-1.9) Urine Leukocyte Esterase Negative (NEGATIVE) Urine RBC <1 /HPF (0-2/HPF) Urine WBC None /HPF (0-5/HPF) Urine Squamous Epithelial Cells None /LPF (</=FEW) Urine Bacteria Negative /HPF (NONE-FEW) Urine Hyaline Casts Few /LPF (NONE-FEW) Urine Mucus None /HPF (NONE-FEW) Chemistry Test 04/09/18 00:00 04/09/18 09:35 04/09/18 11:00 Troponin I 0.024 ng/ml B-Type Natriuretic Peptide 457 pg/ml (0-100) White Blood Count 17.7 k/uL (4.5-11.0) Red Blood Count 5.35 M/uL (4.00-5.60) Hemoglobin 15.1 g/dL (14.0-18.0) Hematocrit 46.1 % (42.0-52.0) Mean Corpuscular Volume 86.2 fL (80.0-96.0) Mean Corpuscular Hemoglobin 28.2 pg (26.0-33.0) Mean Corpuscular Hemoglobin Concent 32.7 g/dL (32.0-36.0) Red Cell Distribution Width 17.6 % (11.5-14.5) Platelet Count 433 K/uL (150-450) Mean Platelet Volume 8.1 fL (7.2-11.1) Neutrophils (%) (Auto) 73.9 % (39.4-72.5) Lymphocytes (%) (Auto) 15.3 % (17.6-49.6) Monocytes (%) (Auto) 10.5 % (4.1-12.4) Eosinophils (%) (Auto) 0.1 % (0.4-6.7) Basophils (%) (Auto) 0.2 % (0.3-1.4) Nucleated RBC Relative Count (auto) 0.1 /100WBC Neutrophils # (Auto) 13.1 K/uL (2.0-7.4) Lymphocytes # (Auto) 2.7 K/uL (1.3-3.6) Monocytes # (Auto) 1.9 K/uL (0.3-1.0) Eosinophils # (Auto) 0.0 K/uL (0.0-0.5) Basophils # (Auto) 0.0 K/uL (0.0-0.1) Nucleated RBC Absolute Count (auto) 0.02 K/uL Peripheral Blood Smear Yes Y/N Prothrombin Time 15.8 seconds (12.0-14.4) Prothromb Time International Ratio 1.25 Activated Partial Thromboplast Time 25 seconds (23-35) Glomerular Filtration Rate Calc > 60.0 Lactate 1.2 mmol/L (0.7-2.1) Calcium Level 9.3 mg/dl (8.4-10.2) Total Bilirubin 0.7 mg/dl (0.2-1.3) Aspartate Amino Transf (AST/SGOT) 18 U/L (0-35) Alanine Aminotransferase (ALT/SGPT) 30 U/L (0-56) Alkaline Phosphatase 74 U/L (0-126) Total Protein 6.5 g/dl (6.3-8.2) Albumin 3.5 g/dl (3.5-5.0) Lipase 67 U/L (23-300) Urine Color Yellow Urine Clarity Clear Urine pH 5.0 pH (4.8-9.5) Urine Specific Morris 1.019 Urine Protein 100 mg/dL (NEGATIVE) Urine Glucose (UA) Negative mg/dL (NEGATIVE) Urine Ketones Negative mg/dL (NEGATIVE) Urine Blood Negative (NEGATIVE) Urine Nitrite Negative (NEGATIVE) Urine Bilirubin Negative (NEGATIVE) Urine Urobilinogen Negative mg/dL (0.2-1.9) Urine Leukocyte Esterase Negative (NEGATIVE) Urine RBC <1 /HPF (0-2/HPF) Urine WBC None /HPF (0-5/HPF) Urine Squamous Epithelial Cells None /LPF (</=FEW) Urine Bacteria Negative /HPF (NONE-FEW) Urine Hyaline Casts Few /LPF (NONE-FEW) Urine Mucus None /HPF (NONE-FEW) Coagulation Test 04/09/18 09:35 Prothrombin Time 15.8 seconds Prothromb Time International Ratio 1.25 Activated Partial Thromboplast Time 25 seconds Urinalysis Test 04/09/18 11:00 Urine Color Yellow Urine Clarity Clear Urine pH 5.0 pH (4.8-9.5) Urine Specific Morris 1.019 Urine Protein 100 mg/dL (NEGATIVE) Urine Glucose (UA) Negative mg/dL (NEGATIVE) Urine Ketones Negative mg/dL (NEGATIVE) Urine Blood Negative (NEGATIVE) Urine Nitrite Negative (NEGATIVE) Urine Bilirubin Negative (NEGATIVE) Urine Urobilinogen Negative mg/dL (0.2-1.9) Urine Leukocyte Esterase Negative (NEGATIVE) Urine RBC <1 /HPF (0-2/HPF) Urine WBC None /HPF (0-5/HPF) Urine Squamous Epithelial Cells None /LPF (</=FEW) Urine Bacteria Negative /HPF (NONE-FEW) Urine Hyaline Casts Few /LPF (NONE-FEW) Urine Mucus None /HPF (NONE-FEW) EKG/Imaging EKG Interpretation 12 lead EKG: Sinus tachycardia with a right bundle branch block, T-wave inversions stable compared to prior EKG, rate 118, QTC 479 Rhythm: Sinus tachycardia with a right bundle branch block [place]: normal QRS: normal ST segments: normal Monitor Interpretation: Sinus Tachycardia Imaging Location: [facility] Patient: Meño Arechiga : 1940 Visit/Account:[id number] Date of [place] [facility]: 04/09/2018 EXAMINATION: CT abdomen with IV contrast CT pelvis with IV contrast HISTORY: Diffuse abdominal pain. COMPARISON: CT abdomen and pelvis from 11/07/2017. TECHNIQUE: Axial images were taken through the abdomen and pelvis with intravenous contrast. Sagittal and coronal reformatted images are also oakley bmitted. CONTRAST: 75 mL of IV Isovue-370. One of the following dose optimization techniques was utilized in the performance of this exam: Automated exposure control; adjustment of the mA and/or kV according to the patient's size; or use of an iterative reconstruction technique. Specific details can be referenced in the facility's radiology CT exam operational policy. FINDINGS: Liver/biliary: Several calcified granuloma in the liver unchanged. There is atrophy of the right lobe and previous cholecystectomy. No biliary ductal dilatation. Pancreas: Negative. Spleen: Negative. Adrenal glands: Negative. Kidneys: There are a few small simple bilateral renal cysts, unchanged. Pelvic structures: Mild prostate enlargement. Bowel: The stomach is mildly distended with fluid. Diffuse rugal fold thickening. There is progressive distention of the small bowel loops from the mid jejunum distally. The small bowel loops are fluid-filled, with mild wall thickening and scattered air-fluid levels, measuring up to 3.5 cm in diameter. There is a transition point in the right lower abdomen (image 321 series 3). The distal small bowel is decompressed. The appendix is not visualized. The colon is decompressed. Peritoneum/retroperitoneum/mesenteries: There is a small amount of ascites in the upper abdomen, paracolic gutters and pelvis. Hounsfield units are 20. Vessels: Extensive atherosclerotic calcifications, including of the visualized coronary arteries. Musculoskeletal/body wall: Moderate degenerative changes in the lower lumbar spine are similar to previous exam. Lymph nodes: Negative. Lower chest: Mild dependent bibasilar atelectasis. There is mild cardiomegaly and a small pericardial effusion. Small calcified subcarinal and bilateral hilar lymph nodes. IMPRESSION: 1. Acute small bowel obstruction with transition point in the right lower abdomen. This could be due to surgical adhesions, or possibly inflammatory enteritis given the mild bowel wall thickening proximal to the obstruction. 2. Small amount of ascites, slightly denser than simple fluid. Spontaneous bacterial peritonitis is in the differential. 3. Calcified granulomata in the liver with atrophy of the right lobe and previous cholecystectomy, unchanged. 4. Mild cardiomegaly with a small pericardial effusion, unchanged. These findings were discussed with PRIYANKA BRUMFIELD at 04/09/2018 10:47 AM. ED Course/Re-evaluation ED Course Patient is a 77-year-old male here with complaints of diffuse abdominal pain, history significant for multiple surgeries in the past. Patient was recently hospitalized for pneumonia and reports improvement of symptoms of shortness breath and cough. He is on supplemental oxygen 4 L at baseline. Patient is tachycardic at time of evaluation complaining of severe diffuse pain in the abdomen. Patient was given IV fluids, Reglan, Dilaudid for symptom management. Patient was noted to have leukocytosis of 17,000. CT imaging revealed a small bowel obstruction with transition point in the right lower quadrant. I discussed the patient with who accepted the patient. Patient was stable at time of admission. Decision to Disposition Date: Apr 09, 2018 Decision to Disposition Time: 15:30 Depart Departure Latest Vital Signs Vital Signs Date Time Temp Pulse Resp B/P (MAP) Pulse Ox O2 Delivery O2 Flow Rate FiO2 04/09/18 13:05 117 15 94 04/09/18 13:00 153/105 (121) 04/09/18 09:43 2.0 04/09/18 09:15 97.9 Room Air Impression: Primary Impression: Small bowel obstruction due to postoperative adhesions Condition: Improved Disposition: Admitted from ER Referrals: ADY TIRADO MD (PCP) PRIYANKA BRUMFIELD DO Apr 09, 2018 09:27
[2018-04-09] MEDS ORDERED: IOPAMIDOL 76% 75 ML INFUS BTL 75 ML ONE (09:37)
--- NOTE | 2018-04-09 09:42 | EKG ---
FACILITY: [facility] - [place] PATIENT NAME: BEKAH DAVIS : [id number] MR: [id number] V: [id number] EXAM DATE: ORDERING PHYSICIAN: PRIYANKA BRUMFIELD TECHNOLOGIST: Test Reason : Rapid Heartrate Blood Pressure : / mmHG Vent. Rate : 118 BPM Atrial Rate : 118 BPM P-R Int : 188 ms QRS Dur : 168 ms QT Int : 342 ms P-R-T Axes : 100 117 -59 degrees QTc Int : 479 ms Appears to be atrial flutter Right bundle branch block T wave abnormality, consider inferolateral ischemia Abnormal ECG Confirmed by RONDA GARCIA ([id number]) on 04/09/2018 3:14:05 PM Referred By: Confirmed By:RONDA GARCIA
[2018-04-09 09:58] LABS: INR 1.25
[2018-04-09 10:05] LABS: PLATELET COUNT, AUTOMATED 433 K/uL (150-450)
--- NOTE | 2018-04-09 10:55 | RADIOLOGY IMAGING REPORT ---
FACILITY: [facility] - [place] PATIENT NAME: Meño Arechiga : 1940 MR: [id number] V: [id number] EXAM DATE: ORDERING PHYSICIAN: PRIYANKA BRUMFIELD TECHNOLOGIST: Location: [facility] [place] Patient: Meño Arechiga : 1940 Visit/Account:[id number] Date of [place]: 04/09/2018 EXAMINATION: CT abdomen with IV contrast CT pelvis with IV contrast HISTORY: Diffuse abdominal pain. COMPARISON: CT abdomen and pelvis from 11/07/2017. TECHNIQUE: Axial images were taken through the abdomen and pelvis with intravenous contrast. Sagitt al and coronal reformatted images are also submitted. CONTRAST: 75 mL of IV Isovue-370. One of the following dose optimization techniques was utilized in the performance of this exam: Autom ated exposure control; adjustment of the mA and/or kV according to the patient's size; or use of an i terative reconstruction technique. Specific details can be referenced in the facility's radiology C T exam operational policy. FINDINGS: Liver/biliary: Several calcified granuloma in the liver unchanged. There is atrophy of the right lobe and previous cholecystectomy. No biliary ductal dilatation. Pancreas: Negative. Spleen: Negative. Adrenal glands: Negative. Kidneys: There are a few small simple bilateral renal cysts, unchanged. Pelvic structures: Mild prostate enlargement. Bowel: The stomach is mildly distended with fluid. Diffuse rugal fold thickening. There is progressiv e distention of the small bowel loops from the mid jejunum distally. The small bowel loops are fluid- filled, with mild wall thickening and scattered air-fluid levels, measuring up to 3.5 cm in diameter. There is a transition point in the right lower abdomen (image 321 series 3). The distal small bowel is decompressed. The appendix is not visualized. The colon is decompressed. Peritoneum/retroperitoneum/mesenteries: There is a small amount of ascites in the upper abdomen, para colic gutters and pelvis. Hounsfield units are 20. Vessels: Extensive atherosclerotic calcifications, including of the visualized coronary arteries. Musculoskeletal/body wall: Moderate degenerative changes in the lower lumbar spine are similar to pre vious exam. Lymph nodes: Negative. Lower chest: Mild dependent bibasilar atelectasis. There is mild cardiomegaly and a small pericardial effusion. Small calcified subcarinal and bilateral hilar lymph nodes. IMPRESSION: 1. Acute small bowel obstruction with transition point in the right lower abdomen. This could be due to surgical adhesions, or possibly inflammatory enteritis given the mild bowel wall thickening proxim al to the obstruction. 2. Small amount of ascites, slightly denser than simple fluid. Spontaneous bacterial peritonitis is i n the differential. 3. Calcified granulomata in the liver with atrophy of the right lobe and previous cholecystectomy, un changed. 4. Mild cardiomegaly with a small pericardial effusion, unchanged. These findings were discussed with PRIYANKA BRUMFIELD at 04/09/2018 10:47 AM. Report Dictated By: Leilani Barrow MD at 04/09/2018 10:33 AM Report E-Signed By: Leilani Barrow MD at 04/09/2018 10:51 AM WSN:[id number]
[2018-04-09] MEDS ORDERED: ONDANSETRON 4 MG/2 ML VIAL IVP PRN (12:05)
--- NOTE | 2018-04-09 12:44 | RADIOLOGY IMAGING REPORT ---
FACILITY: [facility] PATIENT NAME: Meño Arechiga : 1940 MR: [id number] V: [id number] EXAM DATE: ORDERING PHYSICIAN: PRIYANKA BRUMFIELD TECHNOLOGIST: Location: [facility] [place] Patient: Meño Arechiga : 1940 Visit/Account:[id number] Date of [place]: 04/09/2018 Technique: CHEST SINGLE AP HISTORY: ng tube Comparison studies: Chest radiograph 04/04/2018 FINDINGS: The enteric tube is coiled with the tip overlying the mid thoracic esophagus. Nodular opaci ty overlies the right lung base which may represent a nipple shadow. There is central vascular conges tion. Hazy bibasilar opacities are noted which may be secondary to a small pleural effusion. The card iac silhouette is unchanged. IMPRESSION: 1. Enteric tube coiled within the thoracic esophagus and should be readjusted. 2. Central vascular congestion and potential small left pleural effusion.. 3. Nodular opacity within the right lower lung which may represent a nipple shadow. Results were called to Jonathon Price NP at 04/09/2018 12:39 PM. Report Dictated By: Satish Stoll DO at 04/09/2018 12:13 PM Report E-Signed By: Satish Stoll DO at 04/09/2018 12:39 PM WSN:[id number]
--- NOTE | 2018-04-09 12:58 | RADIOLOGY IMAGING REPORT ---
[place] [facility] [place] Meño Arechiga : 1940 MR: [id number] V: [id number] EXAM DATE: ORDERING PHYSICIAN: PRIYANKA BRUMFIELD TECHNOLOGIST: Location: [facility] [place] Patient: Meño Arechiga : 1940 Visit/Account:[id number] Date of [place]: 04/09/2018 Technique: KUB SINGLE VIEW ABDOMEN HISTORY: NG tube place Comparison studies: Chest radiograph 04/09/2018 FINDINGS: As noted on the recent chest radiograph the enteric tube is not located within the gastric lumen. Contrast is present within the urinary bladder. Moderate stool volume is present. No significa ntly dilated loops of bowel are identified. Surgical clips overlie the right upper quadrant. Arterial stents are noted within the right common iliac as well as left common and left external iliac arteri es in the setting of atherosclerotic disease. IMPRESSION: 1. Nonvisualization of the enteric tube tip as described in the recent chest radiograph. 2. Incidental findings as above. Report Dictated By: Satish Stoll DO at 04/09/2018 12:51 PM Report E-Signed By: Satish Stoll DO at 04/09/2018 12:54 PM WSN:[id number]
--- NOTE | 2018-04-09 13:05 | Gen Surgery History & Physical ---
History of Present Illness Chief Complaint Abdominal distention, nausea and vomiting since last evening History of Present Illness Mr. Arechiga was discharged from [facility] for pneumonia on April 07. He states that he developed abdominal distention nausea and vomiting starting yesterday that progressed overnight. He has had SBOs in the past and states this is similar. He has had previous abdominal surgery. An NGT was placed in the ED and I was contacted for admission. History Problems: (1) Cervical spondylarthritis Status: Acute (2) CKD (chronic kidney disease) (3) Atypical pneumonia Status: Acute (4) Right ventricular failure Status: Chronic (5) Anxiety and depression Status: Chronic (6) History of pulmonary embolism Status: Chronic (7) GERD (gastroesophageal reflux disease) Status: Chronic (8) CHF (congestive heart failure) Status: Acute (9) Dyslipidemia Status: Chronic (10) Pulmonary hypertension Status: Chronic (11) Hypothyroid Status: Chronic (12) CAD (coronary artery disease) Status: Chronic (13) BPH (benign prostatic hyperplasia) Status: Chronic (14) Myocardial infarction Status: Chronic Home Meds Active Scripts Prednisone (PREDNISONE) 20 Mg Tablet, 10-40 MG PO QDAY, #7 2 pills for 2 days, then 1 for 2 days, the 1/2 for 2 days Prov:WILLIAM REDMAN MD 04/07/18 Diclofenac Sodium 1% Gel (VOLTAREN 1% GEL) 100 Gm Gel..gram., 2 GM TOP TID for 30 Days, #1 TUBE Prov:ADY TIRADO MD 03/08/18 Pantoprazole Sodium (PROTONIX) 40 Mg Tablet.dr, 40 MG PO BID for 60 Days, #60 TAB.SR Prov:ADY TIRADO MD 02/08/18 Clopidogrel Bisulfate (CLOPIDOGREL) 75 Mg Tablet, 75 MG PO QDAY for 90 Days, #90 TAB 3 Refills Prov:ADY TIRADO MD 01/11/18 Apixaban (ELIQUIS) 5 Mg Tablet, 5 MG PO BID, #60 TAB 3 Refills Prov:ADY TIRADO MD 01/09/18 Rosuvastatin Calcium (CRESTOR) 40 Mg Tablet, 1 TAB PO QDAY for 90 Days, #90 TAB 4 Refills Prov:ADY TIRADO MD 01/06/18 Carvedilol (CARVEDILOL) 6.25 Mg Tab, 1 TAB PO BID, #30 TAB 6 Refills Prov:ADY TIRADO MD 12/20/17 Triamcinolone Acetonide 0.1% Oint 15 Gm Tube (TRIAMCINOLONE ACETONIDE 0.1% 15 GM TUBE) 15 Gm Oint...g., 15 GM TP DAILY for 14 Days, #1 TUBE Prov:ELIS VALLE MD 12/07/17 Clobetasol Propionate (CLOBETASOL PROPIONATE) 15 Gm Oint...g., 1 BRANDAN TP BID for 30 Days, #1 TUBE 2 Refills Prov:ADY TIRADO MD 12/07/17 Finasteride (FINASTERIDE) 5 Mg Tablet, 5 MG PO QHS, #90 TAB 1 Refill Prov:ELIS VALLE MD 07/14/17 Ferrous Sulfate (FERROUS SULFATE) 325 Mg Tablet, 325 MG PO DAILY, #30 TAB 5 Refills Prov:ELIS VALLE MD 06/09/17 Levothyroxine Sodium (LEVOTHYROXINE SODIUM) 0.112 Mg Tab, 0.112 MG PO QAM, #90 TAB 3 Refills Prov:ELIS VALLE MD 06/04/17 Reported Medications Prednisolone Acetate/Pf (Prednisolone Acet 1% Eye Drop) 1 % Drops.susp, 2 DROP OU QID 04/07/18 Ofloxacin (Ofloxacin) 0.3 % Drops, 1 DROP OU QID 04/07/18 Ketorolac Tromethamine/Pf (ACUVAIL 0.45% OPHTH SOLUTION) 1 Each Droperette, 1 DROP OP QID 04/07/18 Acetaminophen (TYLENOL EXTRA STRENGTH) 500 Mg Tablet, 2 TAB PO BID PRN for pain, CAP 01/11/18 Riociguat (Adempas) 2.5 Mg Tablet, 1 TAB PO TID 11/25/17 Cholecalciferol (Vitamin D3) (VITAMIN D) 5,000 Unit Tablet, 1 TAB PO DAILY 11/25/17 Furosemide (LASIX) 40 Mg Tablet, 1 TAB PO QDAY, TAB 10/20/17 Oxygen (OXYGEN) Inha, 5 L INH, L 08/07/17 Discontinued Reported Medications Duloxetine Hcl (CYMBALTA) 60 Mg Capsule.dr, 60 MG PO QDAY for 90 Days, #90 CAP 12/20/17 Discontinued Scripts Levofloxacin 750 Mg Tab (LEVOFLOXACIN 750 MG TAB) 750 Mg Tablet, 750 MG PO DAILY, #1 TAB Take at 4pm on 04/08 Prov:WILLIAM REDMAN MD 04/07/18 Allergies: Coded Allergies: trazodone (Verified Allergy, Intermediate, 04/04/18) oxycodone (Verified Adverse Reaction, Unknown, Hallucinations, 04/04/18) Patient History: Cerebral hemorrhage FATHER, , Age:47 FH polycystic kidney FATHER, , Age:47 BROTHER OR SISTER BROTHER OR SISTER FH: alcohol abuse CHILD FH: cancer MOTHER, , Age:64 FH: diabetes mellitus CHILD FH: hypertension FATHER, , Age:47 Review of Systems All Systems Reviewed/Normal: Yes, Except as Noted Constitutional: No Fever Respiratory: Shortness of Breath (associated with recent/ongoing pneumonia) Gastrointestinal: Nausea, Vomiting, Abdominal Pain Psychiatric: Depression, Anxiety Exam General Appearance: Alert, Awake, No Acute Distress (much better following NGT placment) Eyes: PERRLA Respiratory: No Respiratory Distress GI: Other (Distended, soft, tender in lower abdomen but no peritoneal signs) Extremities: Soft and Non Tender, Warm Integumentary: Skin Intact without Lesion / Mass Psych: Alert & Oriented X3, Appropriate Mood & Affect Medical Decision Making Data Points Result Diagram: 04/09/18 0935 04/09/18 0935 Assessment and Plan Problems: (1) Atypical pneumonia Status: Acute Assessment & Plan: 04/09/2018: He was discharged for this on 04/07. He completed his course of levoquin and is on a prednisone taper for his COPD. (2) Small bowel obstruction due to postoperative adhesions Status: Acute Assessment & Plan: 04/09/2018: He has a small bowel obstruction with a distal transition zone seen on CT. There is some free fluid in his abdomen but no free air. An NGT was placed in the ED. Continue NGT suction overnight. If not resolved in the am, will get a SBFT. Discussed the findings and plan with him and he expressed his understanding and consent to proceed. The hospitalist service, Dr. Driver, was consulted to help manage his medical issues outside of the SBO. Venous Thromboembolism VTE Risk Physician Assess for VTE Risk: Yes Patient's VTE Risk: High Antithrombotics Is Pt On Any Antithrombotics?: Yes Heart Failure Ejection Fraction %: 60 RVSP (mmHg): 82 NYHA Class: II Is Patient on MAHI Inhibitor?: No Is Patient on Beta Jigar?: Yes AMANDA HERNANDES MD Apr 09, 2018 12:45
[2018-04-09] MEDS ORDERED: PANTOPRAZOLE SOD(*)40 MG VIAL 80 MG in NS(*) 0.9% 100 ML BAG 100 ML IVPB SCH (13:30)
[2018-04-09] MEDS ORDERED: LIDOCAINE 2% VISC SLN 15ML UDC ONE (14:05)
[2018-04-09 14:36] VITALS: BP 171/106
[2018-04-09] MEDS: KCL/D1/2NS 20 MEQ 1000 ML 1,000 ML IV PRN ×2 (14:48→23:09)
[2018-04-09] MEDS: PANTOPRAZOLE SOD 40 MG IV VIAL IVP SCH (14:49)
--- NOTE | 2018-04-09 14:52 | RADIOLOGY IMAGING REPORT ---
[place] [facility] [place] NAME: Meño Arechiga : 1940 MR: [id number] V: [id number] EXAM DATE: ORDERING PHYSICIAN: PRIYANKA BRUMFIELD TECHNOLOGIST: Location: [facility] [place] Patient: Meño Arechiga : 1940 Visit/Account:[id number] Date of Sevice: 04/09/2018 Supine abdomen, one view. HISTORY: NG tube placement. COMPARISON: 04/09/2018 at 1114 hours. An esophagogastric tube tip projects on the left upper abdomen in the region of the gastric body. The gastric antrum contains a small amount of gas. Mildly dilated gas-filled small bowel loops are prese nt in the mid abdomen. Small amounts of gas are scattered in the colon. Calcifications and stents are present in the iliac arteries bilaterally. Contrast material is present in the urinary bladder. A sm all calcific density projects on the left lung base. IMPRESSION: The esophagogastric tube tip projects on the gastric body. Report Dictated By: Markie Shannon MD at 04/09/2018 2:46 PM Report E-Signed By: Markie Shannon MD at 04/09/2018 2:49 PM WSN:[id number]
--- NOTE | 2018-04-09 15:12 | Hospitalist Consultation ---
History of Present Illness Requesting Physician Dr. Thornton Reason for Consult Medical co-management in patient with multiple medical problems Chief Complaint Nausea and vomiting History of Present Illness 77yo male with extensive PMHx including recent admission for possible pneumonia as well as severe pulmonary HTN, CAD, PVD, a-fib/flutter, indolent multiple myeloma. He has been admitted to the surgical service for probable acute small bowel obstruction. He reports chronic/stable dyspnea. He has completed a course of oral Levaquin and is finishing a weaning dose of prednisone. His current CXR does not show an obvious infiltrate. No current problems with edema. He has had abdominal distension/pain, but no reported chest pain. 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: Chronic (10) GERD (gastroesophageal reflux disease) Status: Chronic (11) Acute urinary retention Status: Acute (12) BPH (benign prostatic hyperplasia) Status: Chronic (13) CAD (coronary artery disease) Status: Chronic (14) Hypothyroid Status: Chronic (15) Atrial flutter Status: Chronic (16) Pulmonary hypertension Status: Chronic (17) Multiple myeloma Status: Chronic (18) PVD (peripheral vascular disease) Status: Chronic (19) Dyslipidemia Status: Chronic (20) History of splenectomy Status: Chronic (21) History of cholecystectomy Status: Chronic Home Meds Active Scripts Prednisone (PREDNISONE) 20 Mg Tablet, 10-40 MG PO QDAY, #7 2 pills for 2 days, then 1 for 2 days, the 1/2 for 2 days Prov:WILLIAM REDMAN MD 04/07/18 Diclofenac Sodium 1% Gel (VOLTAREN 1% GEL) 100 Gm Gel..gram., 2 GM TOP TID for 30 Days, #1 TUBE Prov:ADY TIRADO MD 03/08/18 Pantoprazole Sodium (PROTONIX) 40 Mg Tablet.dr, 40 MG PO BID for 60 Days, #60 TAB.SR Prov:ADY TIRADO MD 02/08/18 Clopidogrel Bisulfate (CLOPIDOGREL) 75 Mg Tablet, 75 MG PO QDAY for 90 Days, #90 TAB 3 Refills Prov:ADY TIRADO MD 01/11/18 Apixaban (ELIQUIS) 5 Mg Tablet, 5 MG PO BID, #60 TAB 3 Refills Prov:ADY TIRADO MD 01/09/18 Rosuvastatin Calcium (CRESTOR) 40 Mg Tablet, 1 TAB PO QDAY for 90 Days, #90 TAB 4 Refills Prov:ADY TIRADO MD 01/06/18 Carvedilol (CARVEDILOL) 6.25 Mg Tab, 1 TAB PO BID, #30 TAB 6 Refills Prov:ADY TIRADO MD 12/20/17 Triamcinolone Acetonide 0.1% Oint 15 Gm Tube (TRIAMCINOLONE ACETONIDE 0.1% 15 GM TUBE) 15 Gm Oint...g., 15 GM TP DAILY for 14 Days, #1 TUBE Prov:ELIS VALLE MD 12/07/17 Clobetasol Propionate (CLOBETASOL PROPIONATE) 15 Gm Oint...g., 1 BRANDAN TP BID for 30 Days, #1 TUBE 2 Refills Prov:ADY TIRADO MD 12/07/17 Finasteride (FINASTERIDE) 5 Mg Tablet, 5 MG PO QHS, #90 TAB 1 Refill Prov:ELIS VALLE MD 07/14/17 Ferrous Sulfate (FERROUS SULFATE) 325 Mg Tablet, 325 MG PO DAILY, #30 TAB 5 Refills Prov:ELIS VALLE MD 06/09/17 Levothyroxine Sodium (LEVOTHYROXINE SODIUM) 0.112 Mg Tab, 0.112 MG PO QAM, #90 TAB 3 Refills Prov:ELIS VALLE MD 06/04/17 Reported Medications Prednisolone Acetate/Pf (Prednisolone Acet 1% Eye Drop) 1 % Drops.susp, 2 DROP OU QID 04/07/18 Ofloxacin (Ofloxacin) 0.3 % Drops, 1 DROP OU QID 04/07/18 Ketorolac Tromethamine/Pf (ACUVAIL 0.45% OPHTH SOLUTION) 1 Each Droperette, 1 DROP OP QID 04/07/18 Acetaminophen (TYLENOL EXTRA STRENGTH) 500 Mg Tablet, 2 TAB PO BID PRN for pain, CAP 01/11/18 Riociguat (Adempas) 2.5 Mg Tablet, 1 TAB PO TID 11/25/17 Cholecalciferol (Vitamin D3) (VITAMIN D) 5,000 Unit Tablet, 1 TAB PO DAILY 11/25/17 Furosemide (LASIX) 40 Mg Tablet, 1 TAB PO QDAY, TAB 10/20/17 Oxygen (OXYGEN) Inha, 5 L INH, L 08/07/17 Discontinued Reported Medications Duloxetine Hcl (CYMBALTA) 60 Mg Capsule.dr, 60 MG PO QDAY for 90 Days, #90 CAP 12/20/17 Discontinued Scripts Levofloxacin 750 Mg Tab (LEVOFLOXACIN 750 MG TAB) 750 Mg Tablet, 750 MG PO DAILY, #1 TAB Take at 4pm on 04/08 Prov:WILLIAM REDMAN MD 04/07/18 Allergies: Coded Allergies: trazodone (Verified Allergy, Intermediate, 04/04/18) oxycodone (Verified Adverse Reaction, Unknown, Hallucinations, 04/04/18) Patient History: Cerebral hemorrhage FATHER, , Age:47 FH polycystic kidney FATHER, , Age:47 BROTHER OR SISTER BROTHER OR SISTER FH: alcohol abuse CHILD FH: cancer MOTHER, , Age:64 FH: diabetes mellitus CHILD FH: hypertension FATHER, , Age:47 Hx Smoking: Yes Smoking Status: Never Smoker Exposure to Second Hand Smoke?: Yes Caffeine Intake: Soda Caffeine/Cups Per Day: 1 Hx Alcohol Use: No Hx Substance Use Disorder: No Social Drug Use: Never Review of Systems Constitutional: No Fever, No Chills Neurological: No Syncope Cardiovascular: No Chest Pain Respiratory: Shortness of Breath Gastrointestinal: Nausea, Vomiting Genitourinary: No Dysuria Exam Vital Signs Vital Signs Date Time Temp Pulse Resp B/P (MAP) Pulse Ox O2 Delivery O2 Flow Rate FiO2 04/09/18 14:36 97.9 118 16 171/106 (127) 93 Nasal Cannula 3.0 General Appearance: Alert, Awake Neuro: No Gross deficits Eyes: PERRLA ENT: Oropharynx Clear Cardiovascular: Other (Fairly regular slightly tachycardic distant tones/JVD is present) Respiratory: Other (fairly clear) Chest: No Tenderness GI: Other (Distended/healed surgical scars) Extremities: Warm, Perfused, Other (no edema currently) Psych: Alert & Oriented X3 Medical Decision Making Data Points Result Diagram: 04/09/18 0935 04/09/18 0935 Item Value Date Time Albumin 3.5 g/dl 04/09/18 0935 Total Protein 6.5 g/dl 04/09/18 0935 Alkaline Phosphatase 74 U/L 04/09/18 0935 Alanine Aminotransferase (ALT/SGPT) 30 U/L 04/09/18 0935 Aspartate Amino Transf (AST/SGOT) 18 U/L 04/09/18 0935 Total Bilirubin 0.7 mg/dl 04/09/18 0935 Troponin I 0.024 ng/ml 04/09/18 0000 Calcium Level 9.3 mg/dl 04/09/18 0935 Lactate 1.2 mmol/L 04/09/18 0935 Urine Mucus None /HPF 04/09/18 1100 Urine Hyaline Casts Few /LPF 04/09/18 1100 Urine Bacteria Negative /HPF 04/09/18 1100 Urine Squamous Epithelial Cells None /LPF 04/09/18 1100 Urine WBC None /HPF 04/09/18 1100 Urine RBC <1 /HPF 04/09/18 1100 Urine Leukocyte Esterase Negative 04/09/18 1100 Urine Urobilinogen Negative mg/dL 04/09/18 1100 Urine Bilirubin Negative 04/09/18 1100 Urine Nitrite Negative 04/09/18 1100 Urine Blood Negative 04/09/18 1100 Urine Ketones Negative mg/dL 04/09/18 1100 Urine Glucose (UA) Negative mg/dL 04/09/18 1100 Urine Protein 100 mg/dL 04/09/18 1100 Urine Specific [place] 1.019 04/09/18 1100 Urine pH 5.0 pH 04/09/18 1100 Urine Clarity Clear 04/09/18 1100 Urine Color Yellow 04/09/18 1100 Activated Partial Thromboplast Time 25 seconds 04/09/18 0935 Prothromb Time International Ratio 1.25 04/09/18 0935 Prothrombin Time 15.8 seconds H 04/09/18 0935 EKG / Imaging Imaging PATIENT NAME: Meño Arechiga : 1940 MR: [id number] V: [id number] EXAM DATE: ORDERING PHYSICIAN: PRIYANKA BRUMFIELD TECHNOLOGIST: Location: [facility] Patient: Meño Arechiga : 1940 Visit/Account:[id number] Date of Sevice: 04/09/2018 EXAMINATION: CT abdomen with IV contrast CT pelvis with IV contrast HISTORY: Diffuse abdominal pain. COMPARISON: CT abdomen and pelvis from 11/07/2017. TECHNIQUE: Axial images were taken through the abdomen and pelvis with intravenous contrast. Sagittal and coronal reformatted images are also submitted. CONTRAST: 75 mL of IV [id number]. One of the following dose optimization techniques was utilized in the performance of this exam: Automated exposure control; adjustment of the mA and/o r kV according to the patient's size; or use of an iterative reconstruction technique. Specific details can be referenced in the facility's radiology CT exam operational policy. FINDINGS: Liver/biliary: Several calcified granuloma in the liver unchanged. There is atrophy of the right lobe and previous cholecystectomy. No biliary ductal dilatation. Pancreas: Negative. Spleen: Negative. Adrenal glands: Negative. Kidneys: There are a few small simple bilateral renal cysts, unchanged. Pelvic structures: Mild prostate enlargement. Bowel: The stomach is mildly distended with fluid. Diffuse rugal fold thickening. There is progressive distention of the small bowel loops from the mid jejunum distally. The small bowel loops are fluid-filled, with mild wall thickening and scattered air-fluid levels, measuring up to 3.5 cm in diameter. There is a transition point in the right lower abdomen (image 321 series 3). The distal small bowel is decompressed. The appendix is not visualized. The colon is decompressed. Peritoneum/retroperitoneum/mesenteries: There is a small amount of ascites in t he upper abdomen, paracolic gutters and pelvis. Hounsfield units are 20. Vessels: Extensive atherosclerotic calcifications, including of the visualized coronary arteries. Musculoskeletal/body wall: Moderate degenerative changes in the lower lumbar spine are similar to previous exam. Lymph nodes: Negative. Lower chest: Mild dependent bibasilar atelectasis. There is mild cardiomegaly and a small pericardial effusion. Small calcified subcarinal and bilateral hilar lymph nodes. IMPRESSION: 1. Acute small bowel obstruction with transition point in the right lower abdomen. This could be due to surgical adhesions, or possibly inflammatory enteritis given the mild bowel wall thickening proximal to the obstruction. 2. Small amount of ascites, slightly denser than simple fluid. Spontaneous bacterial peritonitis is in the differential. 3. Calcified granulomata in the liver with atrophy of the right lobe and previous cholecystectomy, unchanged. 4. Mild cardiomegaly with a small pericardial effusion, unchanged. These findings were discussed with PRIYANKA BRUMFIELD at 04/09/2018 10:47 AM. Report Dictated By: Leilani Barrow MD at 04/09/2018 10:33 AM Report E-Signed By: Leilani Barrow MD at 04/09/2018 10:51 AM WSN:[id number] PATIENT NAME: Meño Arechiga : 1940 MR: [id number] V: [id number] EXAM DATE: ORDERING PHYSICIAN: PRIYANKA BRUMFIELD TECHNOLOGIST: Location: [facility] Patient: Meño Arechiga : 1940 Visit/Account:[id number] Date of Sevice: 04/09/2018 Technique: CHEST SINGLE AP HISTORY: ng tube Comparison studies: Chest radiograph 04/04/2018 FINDINGS: The enteric tube is coiled with the tip overlying the mid thoracic esophagus. Nodular opacity overlies the right lung base which may represent a nipple shadow. There is central vascular congestion. Hazy bibasilar opacities are noted which may be secondary to a small pleural effusion. The cardiac silhouette is unchanged. IMPRESSION: 1. Enteric tube coiled within the thoracic esophagus and should be readjusted. 2. Central vascular congestion and potential small left pleural effusion.. 3. Nodular opacity within the right lower lung which may represent a nipple shadow. Results were called to Jonathon Price NP at 04/09/2018 12:39 PM. Report Dictated By: Satish Stoll DO at 04/09/2018 12:13 PM Report E-Signed By: Satish Stoll DO at 04/09/2018 12:39 PM WSN:[id number] Assessment and Plan Problems: (1) Pulmonary hypertension Status: Chronic Assessment & Plan: Severe. He is on chronic anticoagulation with Eliquis. Will hold this for now pending the possibility of surgical intervention. He is also on Adempas 2.5mg PO TID. Will hold this acutely due to SBO. If he goes more than 2 days without it, he will need to start a re-titration of the medication. If we cannot restart as of Wednesday 04/11, will need to re-titrate. (2) Hypothyroid Status: Chronic Assessment & Plan: Will give IV levothyroxine (1/2 of his usual oral dose). (3) Multiple myeloma Status: Chronic Assessment & Plan: He is followed through [facility] with Dr. Matthew Watts. He has not been on any treatment up to this point. (4) CAD (coronary artery disease) Status: Chronic Assessment & Plan: He appears to be stable from this standpoint. Will need to hold his Plavix, Crestor, carvedilol. Will give IV metoprolol for beta jigar coverage. (5) PVD (peripheral vascular disease) Status: Chronic Assessment & Plan: See above - as noted in discussion under coronary artery disease. (6) Atrial flutter Status: Chronic Assessment & Plan: Will continue beta jigar therapy with IV metoprolol. Will hold his Eliquis acutely (due to possible surgical intervention). (7) History of pulmonary embolism Status: Chronic Assessment & Plan: He has been managed with Eliquis, but will be holding this acutely. (8) CKD (chronic kidney disease) Status: Chronic Assessment & Plan: His creatinine is actually a little better (1.1) than his baseline (~1.3). Will monitor. (9) Community acquired pneumonia Status: Acute Assessment & Plan: His current CXR does not show an obvious infiltrate. His symptoms have improved. His exam is unremarkable. I do not believe he will need to continue the weaning prednisone at this time. Will watch closely. Copies to: ADY TIRADO MD ; Venous Thromboembolism Antithrombotics Is Pt On Any Antithrombotics?: Yes Heart Failure Ejection Fraction %: 60 RVSP (mmHg): 82 NYHA Class: II Is Patient on MAHI Inhibitor?: No Is Patient on Beta Jigar?: Yes Exam Sepsis Risk: No Definite Risk RONDA GARCIA MD Apr 09, 2018 15:12
[2018-04-09] MEDS: METOPROLOL TART 5 MG/5 ML VIAL IVP SCH ×2 (17:53→23:15)
[2018-04-09] MEDS: fentaNYL CITR 100 MCG/2 ML AMP IVP PRN ×2 (17:56→22:51)
[2018-04-09 19:50] VITALS: BP 134/92
[2018-04-09] MEDS: prednisoLONE ACE 1% OP 5ML BTL OD SCH (20:35)
[2018-04-09] MEDS: PHENOL SPRAY 120 ML BTL MT PRN ×2 (20:35→22:48)
[2018-04-09] MEDS: KETOROLAC TROM 0.5% OP 3 ML BTL OD SCH (20:35)
[2018-04-09 23:11] VITALS: BP 160/95
[2018-04-10] VITALS (7 sets, daily range): BP systolic 144–167; BP diastolic 84–101; Ht 167.6 cm; Wt 69.5 kg
[2018-04-10] MEDS ORDERED: fentaNYL CITR 100 MCG/2 ML AMP IVP PRN
[2018-04-10] MEDS: ACETAMINOPHEN(*)1000 MG/100 ML 100 ML IVPB SCH ×3 (00:22→17:30)
[2018-04-10] MEDS: METOPROLOL TART 5 MG/5 ML VIAL IVP SCH ×4 (05:27→23:36)
[2018-04-10] MEDS: PHENOL SPRAY 120 ML BTL MT PRN ×2 (05:27→21:04)
[2018-04-10 06:15] LABS: PLATELET COUNT, AUTOMATED 375 K/uL (150-450)
[2018-04-10] MEDS: KCL/D1/2NS 20 MEQ 1000 ML 1,000 ML IV PRN ×3 (06:57→23:44)
[2018-04-10] MEDS ORDERED: LEVOTHYROXINE SOD 100 MCG VIAL IVP ONE (09:00)
[2018-04-10] MEDS: PANTOPRAZOLE SOD 40 MG IV VIAL IVP SCH (09:55)
[2018-04-10] MEDS: prednisoLONE ACE 1% OP 5ML BTL OD SCH ×3 (09:58→20:27)
[2018-04-10] MEDS: KETOROLAC TROM 0.5% OP 3 ML BTL OD SCH ×3 (09:59→20:27)
--- NOTE | 2018-04-10 10:11 | General Surgery Progress Note ---
Subjective Progress Notes Subjective Rough night but feels better since about 0200. Physical Exam Vital Signs Date Time Temp Pulse Resp B/P (MAP) Pulse Ox O2 Delivery O2 Flow Rate FiO2 04/10/18 05:23 115 157/101 (119) 04/10/18 03:35 98.4 18 94 Nasal Cannula 5.0 Intake and Output 04/10/18 07:00 Intake Total 3124 ml Output Total 1725 ml Balance 1399 ml Intake IV Total 3124 ml Output Urine Total 1150 ml Gastric Drainage Total 575 ml # Voids 1 General Appearance: Alert, Awake, No Acute Distress Eyes: PERRLA ENT: Normal Neck: No Masses Respiratory: No Respiratory Distress GI: Soft and Non-Tender (remains distended) Psych: Alert & Oriented X3, Appropriate Mood & Affect Result Diagram: 04/10/18 0540 04/10/18 0540 Monitor Interpretation: Sinus Tachycardia Assessment and Plan Problems: (1) Atypical pneumonia Status: Acute Assessment & Plan: 04/09/2018: He was discharged for this on 04/07. He completed his course of levoquin and is on a prednisone taper for his COPD. 04/10/2018: NGT decompression didn't have good effect until middle of the night. Will continue decompression over today and observe for resolution. SBFT 04/11 if not resolved. Leukocytosis improving. (2) Small bowel obstruction due to postoperative adhesions Status: Acute Assessment & Plan: 04/09/2018: He has a small bowel obstruction with a distal transition zone seen on CT. There is some free fluid in his abdomen but no free air. An NGT was placed in the ED. Continue NGT suction overnight. If not resolved in the am, will get a SBFT. Discussed the findings and plan with him and he expressed his understanding and consent to proceed. The hospitalist service, Dr. Driver, was consulted to help manage his medical issues outside of the SBO. Time Spent: < 30 min Exam Sepsis Risk: No Definite Risk AMANDA HERNANDES MD Apr 10, 2018 10:11
--- NOTE | 2018-04-10 10:30 | Hospitalist Progress Note ---
Subjective Progress Notes Subjective This patient was admitted for a bowel obstruction. He had no acute events overnight. Patient Complains of: Gastrointestinal: No Flatus, No Bowel Movement Physical Exam Vital Signs Date Time Temp Pulse Resp B/P (MAP) Pulse Ox O2 Delivery O2 Flow Rate FiO2 04/10/18 05:23 115 157/101 (119) 04/10/18 03:35 98.4 18 94 Nasal Cannula 5.0 Intake and Output 04/10/18 07:00 Intake Total 3124 ml Output Total 1725 ml Balance 1399 ml Intake IV Total 3124 ml Output Urine Total 1150 ml Gastric Drainage Total 575 ml # Voids 1 Cardiovascular: Regular Rate and Rhythm Respiratory: Clear to Auscultation GI: Other (distended.) Result Diagram: 04/10/18 0540 04/10/18 0540 Monitor Interpretation: Sinus Tachycardia Assessment and Plan Problems: (1) Pulmonary hypertension Status: Chronic Assessment & Plan: Severe. He is on chronic anticoagulation with Eliquis and Adempas 2.5mg PO TID, which are both currently on hold. If he goes more than 2 days (04/11) without the Adempas then he will need to start a re-titration of the medication. (2) Hypothyroid Status: Chronic Assessment & Plan: Will give IV levothyroxine (1/2 of his usual oral dose). (3) Multiple myeloma Status: Chronic Assessment & Plan: He is followed through [facility] with Dr. Matthew Watts. He has not been on any treatment up to this point. (4) CAD (coronary artery disease) Status: Chronic Assessment & Plan: His Plavix, Crestor, and carvedilol are all currently on hold. He is receiving metoprolol IV. (5) PVD (peripheral vascular disease) Status: Chronic Assessment & Plan: See above - as noted in discussion under coronary artery disease. (6) Atrial flutter Status: Chronic Assessment & Plan: He is receiving IV metoprolol as above. His Eliquis is on hold. (7) History of pulmonary embolism Status: Chronic Assessment & Plan: He has been managed with Eliquis, but will be holding this acutely. (8) Community acquired pneumonia Status: Acute Assessment & Plan: His current CXR does not show an obvious infiltrate. He did recently complete a course of levofloxacin and prednisone. (9) Chronic renal disease, stage 2, mildly decreased glomerular filtration rate (GFR) between 60-89 mL/min/1.73 square meter Heart Failure Ejection Fraction %: 60 RVSP (mmHg): 82 NYHA Class: II Is Patient on MAHI Inhibitor?: No Is Patient on Beta Jigar?: Yes Exam Sepsis Risk: No Definite Risk NAN CORTES DO Apr 10, 2018 10:30
--- NOTE | 2018-04-10 14:22 | Medical Nutrition Therapy ---
Nutrition Anthropometrics Height (Inches): 66.00 Height (Calculated Centimeters: 167.191055 Weight (Pounds): 153 Weight (Calculated Kilograms): 69.485 Christiano Nutrition Score: Adequate Christiano Nutrition Risk Score: 18 Dietary Referral Nutrition Risk Factors: Nutrition Risk Comment: Physical Findings Physical Appearance: WNR Skin Appearance Skin Appearance: Edema Edema Location Modifier: Edema Location: Type of Edema: Degree of Edema: Gastrointestinal Symptoms GI Symtoms: Vomiting Tube Present: NG Bowel Sounds: Recent Bowel Pattern: Stool Characteristics: Nutrition/Food History N/V Nutritional Diagnosis Nutritional Risk Acuity 1: GI Obstruction Nutritional Risk Acuity 2: Chronic Renal Failure Nutritional Risk Acuity 3: GERD Past Medical History: Pulmonary embolism, GERD, CHF, dyslipidemia, weakness, DVT, Acute renal failure, multiple myeloma, CAD, iron deficiency anemia, Swelling of right upper extremity, prediabetes or diabetes Nutritional Acuity: 1-High Nutrition Diagnosis: Altered GI Function Nutrition Etiology: Physiological Causes Nutrition Problem/Etiology/Sym: Altered Gastrointestinal (GI) Function related to alteration in gastrointestinal tract function secondary to SBO AEB positive SBO diagnosis with CT of the abdomen and abdominal pain, nausea prior to admit. Energy Requirement: 2039 ([place] Jeor: Actual BW X 1.5) Protein Requirement: 70 (Actual BW Kg X 1.0) Fluid Requirement: 2039 Diet Type: NPO (Nothing by Mouth) Nutrition Intervention: Change diet, Incr diet as tolerated Nutrition Monitoring & Eval Nutrition Goals: Eat 75-100% Meal RD Patient Assessment Time: [address] Assessment Type: RD Assessment Patient Nutrition Acuity: 1-High Follow Up Date: Apr 12, 2018 Nutritional Comment: 04/10/18 Pt admitted for SBO. Alb 3.5, BNP 457, Glu 122. Within normal wt range with BMI of 24.7. NPO at present. Follow clinical progression, diet changes, labs, etc. -SWETHA GALEANA Apr 10, 2018 14:22
[2018-04-11] MEDS: PHENOL SPRAY 120 ML BTL MT PRN (02:30)
[2018-04-11 04:05] VITALS: BP 165/89
[2018-04-11 06:00] VITALS: BP 168/85
[2018-04-11] MEDS: METOPROLOL TART 5 MG/5 ML VIAL IVP SCH ×2 (06:05→11:29)
[2018-04-11 06:18] LABS: PLATELET COUNT, AUTOMATED 368 K/uL (150-450)
[2018-04-11 07:02] VITALS: BP 162/88
[2018-04-11] MEDS: PANTOPRAZOLE SOD 40 MG IV VIAL IVP SCH (08:46)
[2018-04-11] MEDS: prednisoLONE ACE 1% OP 5ML BTL OD SCH ×2 (08:47→13:16)
[2018-04-11] MEDS: KETOROLAC TROM 0.5% OP 3 ML BTL OD SCH ×2 (08:47→13:16)
[2018-04-11] MEDS ORDERED: LEVOTHYROXINE SOD 100 MCG VIAL IVP SCH ×2 (09:09→09:11)
[2018-04-11] MEDS: KCL/D1/2NS 20 MEQ 1000 ML 1,000 ML IV PRN (09:14)
[2018-04-11] MEDS ORDERED: DIATRIZOATE MEGL/DIATRIZOA SOD 120 ML SOLN PO ONE (10:36)
--- NOTE | 2018-04-11 10:50 | Hospitalist Progress Note ---
Subjective Progress Notes Subjective He was admitted for small bowel obstruction. He had no acute events overnight. Patient Complains of: Cardiovascular: No: Chest Pain Respiratory: No: Shortness of Breath Physical Exam Vital Signs Date Time Temp Pulse Resp B/P (MAP) Pulse Ox O2 Delivery O2 Flow Rate FiO2 04/11/18 07:40 95 Nasal Cannula 4.5 04/11/18 07:02 98.2 58 20 162/88 (112) Intake and Output 04/11/18 06:59 Intake Total 2183 ml Output Total 2575 ml Balance -392 ml Intake IV Total 2183 ml Output Urine Total 1000 ml Gastric Drainage Total 1575 ml General Appearance: Alert, Awake, No Acute Distress, Afebrile Neuro: No Gross deficits Cardiovascular: Regular Rate and Rhythm Respiratory: No Respiratory Distress, Clear to Auscultation GI: Other (NG tube present) Extremities: Warm, Perfused; No Edema Psych: Alert & Oriented X3, Appropriate Mood & Affect Result Diagram: 04/11/18 0555 04/11/18 0555 Monitor Interpretation: Sinus Tachycardia Assessment and Plan Problems: (1) Pulmonary hypertension Status: Chronic Assessment & Plan: Severe. He is on chronic anticoagulation with Eliquis and Adempas 2.5mg PO TID, which are both currently on hold. If he goes more than 2 days (04/11) without the Adempas then he will need to start a re-titration of the medication. (2) Hypothyroid Status: Chronic Assessment & Plan: Will give IV levothyroxine (1/2 of his usual oral dose). (3) Multiple myeloma Status: Chronic Assessment & Plan: He is followed through [facility] with Dr. Matthew Watts. He has not been on any treatment up to this point. (4) CAD (coronary artery disease) Status: Chronic Assessment & Plan: His Plavix, Crestor, and carvedilol are all currently on hold. He is receiving metoprolol IV. (5) PVD (peripheral vascular disease) Status: Chronic Assessment & Plan: See above - as noted in discussion under coronary artery disease. (6) Atrial flutter Status: Chronic Assessment & Plan: He is receiving IV metoprolol as above. His Eliquis is on hold. (7) History of pulmonary embolism Status: Chronic Assessment & Plan: He has been managed with Eliquis, but will be holding this acutely. (8) Community acquired pneumonia Status: Acute Assessment & Plan: His current CXR does not show an obvious infiltrate. He did recently complete a course of levofloxacin and prednisone. (9) Chronic renal disease, stage 2, mildly decreased glomerular filtration rate (GFR) between 60-89 mL/min/1.73 square meter Heart Failure Ejection Fraction %: 60 RVSP (mmHg): 82 NYHA Class: II Is Patient on MAHI Inhibitor?: No Is Patient on Beta Jigar?: Yes Exam Sepsis Risk: No Definite Risk CLEMENCIA AGARWAL OVERSEAMER Apr 11, 2018 10:50
[2018-04-11 11:25] VITALS: BP 157/81
[2018-04-11] MEDS ORDERED: RIOCIGUAT 2.5 MG PO ONE (14:30)
[2018-04-11 15:56] VITALS: BP 142/92
--- NOTE | 2018-04-11 16:14 | Hospitalist Depart ---
Discharge Summary Reason for Hosp/Final Diag: (1) Atypical pneumonia Status: Acute Hospital Course & Plan: 04/09/2018: He was discharged for this on 04/07. He completed his course of levoquin and is on a prednisone taper for his COPD. 04/10/2018: NGT decompression didn't have good effect until middle of the night. Will continue decompression over today and observe for resolution. SBFT 04/11 if not resolved. Leukocytosis improving. (2) Small bowel obstruction due to postoperative adhesions Status: Acute Hospital Course & Plan: 04/09/2018: He has a small bowel obstruction with a distal transition zone seen on CT. There is some free fluid in his abdomen but no free air. An NGT was placed in the ED. Continue NGT suction overnight. If not resolved in the am, will get a SBFT. Discussed the findings and plan with him and he expressed his understanding and consent to proceed. The hospitalist service, Dr. Driver, was consulted to help manage his medical issues outside of the SBO. 04/11/2018: Minimal flatus in the early am. SBFT ordered with rapid transit of contrast into and through the colon. Discharge to home. Departure Weight (Pounds): 153 Weight (Ounces): 3.0 Result Diagram: 04/11/1855404/11/18554 Condition: Improved Discharge: Home Discharge Code Status: DNR, DNI Time Spent: < 30 min Discharge Instructions Home Meds Active Scripts Prednisone (PREDNISONE) 20 Mg Tablet, 10-40 MG PO QDAY, #7 2 pills for 2 days, then 1 for 2 days, the 1/2 for 2 days Prov:WILLIAM REDMAN MD 04/07/18 Diclofenac Sodium 1% Gel (VOLTAREN 1% GEL) 100 Gm Gel..gram., 2 GM TOP TID for 30 Days, #1 TUBE Prov:ADY TIRADO MD 03/08/18 Pantoprazole Sodium (PROTONIX) 40 Mg Tablet.dr, 40 MG PO BID for 60 Days, #60 TAB.SR Prov:ADY TIRADO MD 02/08/18 Clopidogrel Bisulfate (CLOPIDOGREL) 75 Mg Tablet, 75 MG PO QDAY for 90 Days, #90 TAB 3 Refills Prov:ADY TIRADO MD 01/11/18 Apixaban (ELIQUIS) 5 Mg Tablet, 5 MG PO BID, #60 TAB 3 Refills Prov:ADY TIRADO MD 01/09/18 Rosuvastatin Calcium (CRESTOR) 40 Mg Tablet, 1 TAB PO QDAY for 90 Days, #90 TAB 4 Refills Prov:ADY TIRADO MD 01/06/18 Carvedilol (CARVEDILOL) 6.25 Mg Tab, 1 TAB PO BID, #30 TAB 6 Refills Prov:ADY TIRADO MD 12/20/17 Triamcinolone Acetonide 0.1% Oint 15 Gm Tube (TRIAMCINOLONE ACETONIDE 0.1% 15 GM TUBE) 15 Gm Oint...g., 15 GM TP DAILY for 14 Days, #1 TUBE Prov:ELIS VALLE MD 12/07/17 Clobetasol Propionate (CLOBETASOL PROPIONATE) 15 Gm Oint...g., 1 BRANDAN TP BID for 30 Days, #1 TUBE 2 Refills Prov:ADY TIRADO MD 12/07/17 Finasteride (FINASTERIDE) 5 Mg Tablet, 5 MG PO QHS, #90 TAB 1 Refill Prov:ELIS VALLE MD 07/14/17 Ferrous Sulfate (FERROUS SULFATE) 325 Mg Tablet, 325 MG PO DAILY, #30 TAB 5 Refills Prov:ELIS VALLE MD 06/09/17 Levothyroxine Sodium (LEVOTHYROXINE SODIUM) 0.112 Mg Tab, 0.112 MG PO QAM, #90 TAB 3 Refills Prov:ELIS VALLE MD 06/04/17 Reported Medications Prednisolone Acetate/Pf (Prednisolone Acet 1% Eye Drop) 1 % Drops.susp, 2 DROP OU QID 04/07/18 Ofloxacin (Ofloxacin) 0.3 % Drops, 1 DROP OU QID 04/07/18 Ketorolac Tromethamine/Pf (ACUVAIL 0.45% OPHTH SOLUTION) 1 Each Droperette, 1 DROP OP QID 04/07/18 Acetaminophen (TYLENOL EXTRA STRENGTH) 500 Mg Tablet, 2 TAB PO BID PRN for pain, CAP 01/11/18 Riociguat (Adempas) 2.5 Mg Tablet, 1 TAB PO TID 11/25/17 Cholecalciferol (Vitamin D3) (VITAMIN D) 5,000 Unit Tablet, 1 TAB PO DAILY 11/25/17 Furosemide (LASIX) 40 Mg Tablet, 1 TAB PO QDAY, TAB 10/20/17 Oxygen (OXYGEN) Inha, 5 L INH, L 08/07/17 Discontinued Reported Medications Duloxetine Hcl (CYMBALTA) 60 Mg Capsule.dr, 60 MG PO QDAY for 90 Days, #90 CAP 12/20/17 Discontinued Scripts Levofloxacin 750 Mg Tab (LEVOFLOXACIN 750 MG TAB) 750 Mg Tablet, 750 MG PO DAILY, #1 TAB Take at 4pm on 04/08 Prov:WILLIAM REDMAN MD 04/07/18 Venous Thromboembolism Antithrombotics Is Pt On Any Antithrombotics?: Yes Heart Failure Ejection Fraction %: 60 RVSP (mmHg): 82 NYHA Class: II Is Patient on MAHI Inhibitor?: No Is Patient on Beta Jigar?: Yes AMANDA HERNANDES MD Apr 11, 2018 16:12
--- NOTE | 2018-04-12 01:28 | RADIOLOGY IMAGING REPORT ---
FACILITY: [facility] PATIENT NAME: Meño Arechiga : 1940 MR: [id number] V: [id number] EXAM DATE: ORDERING PHYSICIAN: AMANDA HERNANDES TECHNOLOGIST: [place] [facility] [place] Arechiga : 1940 Visit/Account:[id number] Date of Sevice: 04/11/2018 EXAMINATION: Small bowel series HISTORY: Small bowel obstruction COMPARISON: KUB 04/09/2018. CT abdomen/pelvis 04/09/2018. FINDINGS: Block Sealer image demonstrates air present throughout the small bowel and colon, with borderline dilatation of several air-filled small bowel loops. Small volume of colonic stool. NG tube tip overlies the sto mach in the left upper abdomen. Cholecystectomy clips. Vascular calcifications. Water-soluble contrast was administered (240 mL Gastrografin) and serial abdominal radiographs were o btained. Initial image demonstrates contrast opacification of the stomach and proximal small bowel loops which are normal in caliber. Subsequent films obtained at one hour demonstrate contrast opacification of small bowel loops through out the abdomen and pelvis, along with contrast present throughout normal caliber colon. IMPRESSION: Normal small bowel transit time. There is contrast present throughout the colon at [address] No evidence of persistent small bowel obstruction. Report Dictated By: Gomez Reese MD at 04/12/2018 1:21 AM Report E-Signed By: Gomez Reese MD at 04/12/2018 1:24 AM WSN:[id number]
== END 2018-04-11 16:11 | disposition home or self-care (01) ==
LOC: ER 09:30 → INTOOBSV 13:16 → MED 13:16
PROVIDERS: ADMIT Surgery; ATTEND Surgery
DX: K56.50 Intestinal adhesions [bands], unspecified as to partial versus complete obstruction (principal); J18.9 Pneumonia, unspecified organism; N18.2 Chronic kidney disease, stage 2 (mild); G62.9 Polyneuropathy, unspecified; D64.9 Anemia, unspecified; Z86.711 Personal history of pulmonary embolism; I25.2 Old myocardial infarction; K21.9 Gastro-esophageal reflux disease without esophagitis; N40.1 Benign prostatic hyperplasia with lower urinary tract symptoms; R33.8 Other retention of urine; I25.10 Atherosclerotic heart disease of native coronary artery without angina pectoris; E03.9 Hypothyroidism, unspecified; I48.92 Unspecified atrial flutter; I27.20 Pulmonary hypertension, unspecified; C90.00 Multiple myeloma not having achieved remission; I73.9 Peripheral vascular disease, unspecified; Z90.49 Acquired absence of other specified parts of digestive tract; Z88.5 Allergy status to narcotic agent; Z88.8 Allergy status to other drugs, medicaments and biological substances; Z79.01 Long term (current) use of anticoagulants
CPT/HCPCS: 36415; 71045; 74018; 74177; 74250; 81001; 83605; 83690; 83880; 84484; 85025; 85610; 85730; 93005; 99285; A9270; C9113; G0378; J0131; J1170; J2765; J3010; J3480; J3490; J7030; Q9967; 82040; 82247; 82310; 82374; 82435; 82565; 82947; 84075; 84132; 84155; 84295; 84450; 84460; 84520; 96361; 96374; 96375

== ENCOUNTER → 2018-04-09 | Outpatient (CLI) | payer BC ==
[~2018-04-09] MED LIST changes: +KETO1DRO3 OP; +LEVO750T27 PO; +OFLO5DRO41 OU; +PRED20TA6 PO; +PRED5DRO3 OD; -RANI75TA5 PO; +RANI75TA51 PO
[2018-04-14 07:55] VITALS: BMI 25.3
== END ==
LOC: AMB 08:59
PROVIDERS: ATTEND Nurse Practitioner
DX: R10.84 Generalized abdominal pain (principal); R53.1 Weakness; K59.00 Constipation, unspecified; R11.0 Nausea
CPT/HCPCS: A0425; A0427

== ENCOUNTER 2018-04-13 18:00 | Inpatient (IN) | payer MEDICARE, BC ==
[~2018-04-13] VITALS: Ht 167.6 cm; Wt 74.8 kg
[~2018-04-13 18:00] MED LIST changes: -RANI75TA5 PO; +RANI75TA51 PO
--- NOTE | 2018-04-13 18:04 | ER Report ---
History and Physical Time Seen By MD: 18:03 HPI/ROS CHIEF COMPLAINT: Can't go BM HISTORY OF PRESENT ILLNESS: 77-year-old male with an extensive past medical history. He has 2 recent admissions. 04/04 through 04/07. Atypical pneumonia and 04/09 - 04/11 with bowel obstruction. Patient's been home for 2 days. He notes abdominal distention and inability to have a bowel movement. He does have a small amount of diarrhea this morning. His abdomen is grossly distended. Patient's been vomiting. Patient states he's voiding urine okay. REVIEW OF SYSTEMS: Respiratory: No cough, no dyspnea. Cardiovascular: No chest pain, no palpitations. Gastrointestinal: As above Musculoskeletal: No back pain. Allergies: Coded Allergies: trazodone (Verified Allergy, Intermediate, 04/13/18) oxycodone (Verified Adverse Reaction, Unknown, Hallucinations, 04/13/18) Home Meds Active Scripts Diclofenac Sodium 1% Gel (VOLTAREN 1% GEL) 100 Gm Gel..gram., 2 GM TOP TID for 30 Days, #1 TUBE Prov:ADY TIRADO MD 03/08/18 Pantoprazole Sodium (PROTONIX) 40 Mg Tablet.dr, 40 MG PO BID for 60 Days, #60 TAB.SR Prov:ADY TIRADO MD 02/08/18 Clopidogrel Bisulfate (CLOPIDOGREL) 75 Mg Tablet, 75 MG PO QDAY for 90 Days, #90 TAB 3 Refills Prov:ADY TIRADO MD 01/11/18 Apixaban (ELIQUIS) 5 Mg Tablet, 5 MG PO BID, #60 TAB 3 Refills Prov:ADY TIRADO MD 01/09/18 Rosuvastatin Calcium (CRESTOR) 40 Mg Tablet, 1 TAB PO QDAY for 90 Days, #90 TAB 4 Refills Prov:ADY TIRADO MD 01/06/18 Carvedilol (CARVEDILOL) 6.25 Mg Tab, 1 TAB PO BID, #30 TAB 6 Refills Prov:ADY TIRADO MD 12/20/17 Triamcinolone Acetonide 0.1% Oint 15 Gm Tube (TRIAMCINOLONE ACETONIDE 0.1% 15 GM TUBE) 15 Gm Oint...g., 15 GM TP DAILY for 14 Days, #1 TUBE Prov:ELIS VALLE MD 12/07/17 Clobetasol Propionate (CLOBETASOL PROPIONATE) 15 Gm Oint...g., 1 BRANDAN TP BID for 30 Days, #1 TUBE 2 Refills Prov:ADY TIRADO MD 12/07/17 Finasteride (FINASTERIDE) 5 Mg Tablet, 5 MG PO QHS, #90 TAB 1 Refill Prov:ELIS VALLE MD 07/14/17 Ferrous Sulfate (FERROUS SULFATE) 325 Mg Tablet, 325 MG PO DAILY, #30 TAB 5 Refills Prov:ELIS VALLE MD 06/09/17 Levothyroxine Sodium (LEVOTHYROXINE SODIUM) 0.112 Mg Tab, 0.112 MG PO QAM, #90 TAB 3 Refills Prov:ELIS VALLE MD 06/04/17 Reported Medications Prednisolone Acetate/Pf (Prednisolone Acet 1% Eye Drop) 1 % Drops.susp, 2 DROP OU QID 04/07/18 Ofloxacin (Ofloxacin) 0.3 % Drops, 1 DROP OU QID 04/07/18 Ketorolac Tromethamine/Pf (ACUVAIL 0.45% OPHTH SOLUTION) 1 Each Droperette, 1 DROP OP QID 04/07/18 Acetaminophen (TYLENOL EXTRA STRENGTH) 500 Mg Tablet, 2 TAB PO BID PRN for pain, CAP 01/11/18 Riociguat (Adempas) 2.5 Mg Tablet, 1 TAB PO TID 11/25/17 Cholecalciferol (Vitamin D3) (VITAMIN D) 5,000 Unit Tablet, 1 TAB PO DAILY 11/25/17 Furosemide (LASIX) 40 Mg Tablet, 1 TAB PO QDAY, TAB 10/20/17 Oxygen (OXYGEN) Inha, 3 L INH, L 08/07/17 Discontinued Reported Medications Duloxetine Hcl (CYMBALTA) 60 Mg Capsule.dr, 60 MG PO QDAY for 90 Days, #90 CAP 12/20/17 Discontinued Scripts Prednisone (PREDNISONE) 20 Mg Tablet, 10-40 MG PO QDAY, #7 2 pills for 2 days, then 1 for 2 days, the / for 2 days Prov:WILLIAM REDMAN MD 04/07/18 Levofloxacin 750 Mg Tab (LEVOFLOXACIN 750 MG TAB) 750 Mg Tablet, 750 MG PO DAILY, #1 TAB Take at 4pm on 04/08 Prov:WILLIAM REDMAN MD 04/07/18 Past Medical/Surgical History The patient has a past medical and surgical history of cardiac stents, congestive heart failure, an STEMI, angina, A. fib, a flutter, DVT, hypertension, hypercholesterolemia, abdominal pain, black stools intermittently, cholecystectomy, BPH, arthritis, ankylosing spondylitis, hard of hearing, wears glasses, cellulitis, depression, anxiety, multiple myeloma, splenectomy, bilateral inguinal hernia repair, prostatectomy. Tonsillectomy. Reviewed Nurses Notes: Yes Old Medical Records Reviewed: Yes Hx Smoking: Yes Smoking Status: Never Smoker Exposure to Second Hand Smoke?: Yes Hx Substance Use Disorder: No Hx Alcohol Use: No Constitutional Vital Sign - Last 24 Hours 04/13/18 04/13/18 04/13/18 04/13/18 18:00 18:04 18:07 18:15 Temp 97.8 Pulse ??? 120 119 Resp 20 B/P (MAP) 170/101 170/101 (124) Pulse Ox 92 90 O2 Delivery Nasal Cannula 04/13/18 04/13/18 04/13/18 04/13/18 18:30 18:45 19:00 19:00 Pulse 116 117 ??? B/P (MAP) 149/92 (111) ???/??? (1665) Pulse Ox 90 93 O2 Flow Rate 3.0 04/13/18 04/13/18 04/13/18 04/13/18 19:12 19:17 19:30 19:32 Pulse 116 118 B/P (MAP) 178/103 (128) 167/105 (125) Pulse Ox 89 90 04/13/18 04/13/18 04/13/18 04/13/18 19:47 20:00 20:00 20:00 Pulse 118 114 Resp 20 B/P (MAP) 151/87 (108) Pulse Ox 95 94 O2 Delivery Nasal Cannula O2 Flow Rate 2.5 04/13/18 04/13/18 04/13/18 04/13/18 20:02 20:17 20:30 20:32 Pulse 116 118 119 B/P (MAP) 168/107 (127) Pulse Ox 94 93 92 04/13/18 04/13/18 04/13/18 04/13/18 20:47 21:00 21:02 21:07 Pulse 119 119 118 B/P (MAP) 172/98 (122) Pulse Ox 82 92 93 04/13/18 21:22 Pulse 116 Pulse Ox 96 Intake and Output 04/13/18 04/13/18 04/14/18 15:00 23:00 07:00 Intake Total 1000 ml Balance 1000 ml Physical Exam Vital signs stable, afebrile, mild tachycardia, pulse ox normal General Appearance: The patient is alert, has no immediate need for airway protection and no current signs of toxicity., Pale appearing, skin warm and dry Eyes: Pupils equal and round no injection. Respiratory: Chest is non tender, lungs are clear to auscultation. Cardiac: regular rate and rhythm Gastrointestinal: Abdomen is soft, grossly distended, tympanic on percussion non tender, no masses, bowel sounds normal. Musculoskeletal: Neck: Neck is supple and non tender. Extremities have full range of motion and are non tender. Skin: No rashes or lesions. DIFFERENTIAL DIAGNOSIS: After history and physical exam differential diagnosis was considered for abdominal pain including but not limited to appendicitis, cholecystitis, gastritis, bowel obstruction, pancreatitis, constipation and ur inary tract infection. Medical Decision Making Data Points Result Diagram: 04/14/18 0530 04/14/18 0530 Laboratory Hematology Test 04/13/18 18:23 04/13/18 19:45 B-Type Natriuretic Peptide 297 pg/ml (0-100) Amylase Level 88 U/L (0-110) Lipase 209 U/L (23-300) Serum Alcohol < 10 mg/dl Urine Color Straw Urine Clarity Clear Urine pH 5.0 pH (4.8-9.5) Urine Specific [place] 1.015 Urine Protein 100 mg/dL (NEGATIVE) Urine Glucose (UA) Negative mg/dL (NEGATIVE) Urine Ketones Negative mg/dL (NEGATIVE) Urine Blood Negative (NEGATIVE) Urine Nitrite Negative (NEGATIVE) Urine Bilirubin Negative (NEGATIVE) Urine Urobilinogen Negative mg/dL (0.2-1.9) Urine Leukocyte Esterase Negative (NEGATIVE) Urine RBC 1 /HPF (0-2/HPF) Urine WBC 1 /HPF (0-5/HPF) Urine Squamous Epithelial Cells None /LPF (</=FEW) Urine Bacteria Negative /HPF (NONE-FEW) Urine Hyaline Casts Few /LPF (NONE-FEW) Urine Mucus Few /HPF (NONE-FEW) Chemistry Test 04/13/18 18:23 04/13/18 19:45 B-Type Natriuretic Peptide 297 pg/ml (0-100) Amylase Level 88 U/L (0-110) Lipase 209 U/L (23-300) Serum Alcohol < 10 mg/dl Urine Color Straw Urine Clarity Clear Urine pH 5.0 pH (4.8-9.5) Urine Specific [place] 1.015 Urine Protein 100 mg/dL (NEGATIVE) Urine Glucose (UA) Negative mg/dL (NEGATIVE) Urine Ketones Negative mg/dL (NEGATIVE) Urine Blood Negative (NEGATIVE) Urine Nitrite Negative (NEGATIVE) Urine Bilirubin Negative (NEGATIVE) Urine Urobilinogen Negative mg/dL (0.2-1.9) Urine Leukocyte Esterase Negative (NEGATIVE) Urine RBC 1 /HPF (0-2/HPF) Urine WBC 1 /HPF (0-5/HPF) Urine Squamous Epithelial Cells None /LPF (</=FEW) Urine Bacteria Negative /HPF (NONE-FEW) Urine Hyaline Casts Few /LPF (NONE-FEW) Urine Mucus Few /HPF (NONE-FEW) Toxicology Test 04/13/18 18:23 Serum Alcohol < 10 mg/dl Urinalysis Test 04/13/18 19:45 Urine Color Straw Urine Clarity Clear Urine pH 5.0 pH (4.8-9.5) Urine Specific [place] 1.015 Urine Protein 100 mg/dL (NEGATIVE) Urine Glucose (UA) Negative mg/dL (NEGATIVE) Urine Ketones Negative mg/dL (NEGATIVE) Urine Blood Negative (NEGATIVE) Urine Nitrite Negative (NEGATIVE) Urine Bilirubin Negative (NEGATIVE) Urine Urobilinogen Negative mg/dL (0.2-1.9) Urine Leukocyte Esterase Negative (NEGATIVE) Urine RBC 1 /HPF (0-2/HPF) Urine WBC 1 /HPF (0-5/HPF) Urine Squamous Epithelial Cells None /LPF (</=FEW) Urine Bacteria Negative /HPF (NONE-FEW) Urine Hyaline Casts Few /LPF (NONE-FEW) Urine Mucus Few /HPF (NONE-FEW) EKG/Imaging Imaging Results: CT scan of the abdomen and pelvis with IV contrast was obtained. The results of the study are CT abdomen and pelvis with IV contrast Indication: Abdominal pain and distention. Comparison: 04/09/2018.. Technique: Axial CT images were obtained through the abdomen and pelvis during injection of nonionic iodinated intravenous contrast. Reformatted coronal and sagittal images were also obtained. One of the following dose optimization techniques was utilized in the performance of this exam: Automated exposure control; adjustment of the mA and/or kV according to the patient's size; or use of an iterative reconstruction technique. Specific details can be referenced in the facility's radiology CT exam operational policy. Contrast: 75 ml of Isovue-370 IV contrast. Findings: Lower lung michael: Small bilateral pleural effusions with associated atelectasis. These are new. Small pericardial fluid is again present. Liver: Multiple calcified granulomas without other focal abnormality. Right lobe does show atrophy changes versus a previous surgery. Liver is again mildly nodular. Biliary: Status post cholecystectomy. The biliary system is unremarkable. Pancreas: No focal normality. Spleen: Not visualized may been surgically removed. Adrenal glands: Unremarkable. Kidneys / retroperitoneum: No evidence of nephrolithiasis or hydronephrosis. Each kidney does show small cyst. No discrete solid renal lesions. Bowel / peritoneum / mesenteries: The colon is mainly decompressed and shows no focal abnormality. The appendix is not definitely visualized. There are again multiple small bowel loops seen diffusely in the abdomen more the left side. There are transition appears to be in the right lower abdomen where there is diffuse wall thickening of the small bowel. No focal abnormality is identified. The stomach shows no focal abnormality. There is again a small amount of ascites present. No fluid collections, free air or focal areas of inflammation. Lymph node assessment: No pathologic adenopathy identified. Pelvic structures: Prostate again is enlarged and heterogeneous without discrete focal normality. This does cause impression to the urinary bladder. Urinary bladder shows no other focal abnormality. The remaining pelvic structures visualized within normal limits. Vessels: Mild to moderate atherosclerotic calcifications seen throughout a nonaneurysmal abdominal aorta and branches. Musculoskeletal / Body wall: No acute or aggressive osseous abnormality. Degenerative changes especially L4-S1 which are stable. IMPRESSION: 1. Continues to be small bowel obstruction. The area of transition appears to be in the right lower abdomen where there is diffuse wall thickening of the small bowel in this region without focal abnormality. This could be secondary to en teritis, inflammatory bowel disease or less likely ischemia. 2. There continues be small ascites. Small bilateral pleural effusion with associated atelectasis which is new. Continued small pericardial fluid. 3. Other chronic stable findings as above. The study was read by the radiologist. I viewed the images myself on the PACS system. ED Course/Re-evaluation Clinical Indication for ER IV: Hydration, IV Access ED Course Patient was minute to an examination room. H&P was done. The differential diagnosis was considered. Patient with abdominal pain and vomiting. Clinical examination shows a CT scan was findings suspicious for small bowel obstruction. Case is discussed with general surgery. An NG is placed. Patient's admitted to the hospital. 04/13/2018 7:53:15 pm case discussed with Dr. Cheng general surgery on-call, who would like the patient admitted to the medical service since he has multiple medical problems and he will consult for the small bowel obstruction. 04/13/2018 7:53:34 pm case discussed with Dr. Otoniel Choi-Hilton will manage the medical side. Decision to Disposition Date: Apr 13, 2018 Decision to Disposition Time: 19:51 Depart Departure Latest Vital Signs Vital Signs Date Time Temp Pulse Resp B/P (MAP) Pulse Ox O2 Delivery O2 Flow Rate FiO2 04/13/18 21:22 116 96 04/13/18 21:00 172/98 (122) 04/13/18 20:00 Nasal Cannula 2.5 04/13/18 20:00 20 04/13/18 18:04 97.8 Impression: Primary Impression: Small bowel obstruction due to postoperative adhesions Additional Impressions: Chronic renal disease, stage 2, mildly decreased glomerular filtration rate (GFR) between 60-89 mL/min/1.73 square meter Neuropathy Condition: Improved Disposition: Admitted from ER Referrals: ADY TIRADO MD (PCP) Problem Qualifiers EVELINE MONTGOMERY DO Apr 13, 2018 18:04
[2018-04-13] MEDS ORDERED: NS(*) 0.9% 1000 ML BAG 1,000 ML IV ONE (18:09)
[2018-04-13] MEDS ORDERED: ONDANSETRON 4 MG/2 ML VIAL IVP ONE (18:10)
[2018-04-13 18:30] LABS: PLATELET COUNT, AUTOMATED 374 K/uL (150-450)
[2018-04-13] MEDS ORDERED: PROMETHAZINE 25 MG/ML 1 ML AMP IVP ONE (18:40)
[2018-04-13] MEDS ORDERED: IOPAMIDOL 76% 75 ML INFUS BTL 75 ML ONE (18:42)
[2018-04-13] MEDS ORDERED: fentaNYL CITR 100 MCG/2 ML AMP IVP ONE (19:15)
--- NOTE | 2018-04-13 19:42 | RADIOLOGY IMAGING REPORT ---
FACILITY: [facility] PATIENT NAME: Meño Arechiga : 1940 MR: [id number] V: [id number] EXAM DATE: ORDERING PHYSICIAN: EVELINE MONTGOMERY TECHNOLOGIST: Location: [facility] Patient: Meño Arechiga : 1940 Visit/Account:[id number] Date of Sevice: 04/13/2018 CT abdomen and pelvis with IV contrast Indication: Abdominal pain and distention. Comparison: 04/09/2018.. Technique: Axial CT images were obtained through the abdomen and pelvis during injection of nonioni c iodinated intravenous contrast. Reformatted coronal and sagittal images were also obtained. One of the following dose optimization techniques was utilized in the performance of this exam: Autom ated exposure control; adjustment of the mA and/or kV according to the patient's size; or use of an i terative reconstruction technique. Specific details can be referenced in the facility's radiology C T exam operational policy. Contrast: 75 ml of Isovue-370 IV contrast. Findings: Lower lung michael: Small bilateral pleural effusions with associated atelectasis. These are new. Smal l pericardial fluid is again present. Liver: Multiple calcified granulomas without other focal abnormality. Right lobe does show atrophy ch anges versus a previous surgery. Liver is again mildly nodular. Biliary: Status post cholecystectomy. The biliary system is unremarkable. Pancreas: No focal normality. Spleen: Not visualized may been surgically removed. Adrenal glands: Unremarkable. Kidneys / retroperitoneum: No evidence of nephrolithiasis or hydronephrosis. Each kidney does show sm all cyst. No discrete solid renal lesions. Bowel / peritoneum / mesenteries: The colon is mainly decompressed and shows no focal abnormality. Th e appendix is not definitely visualized. There are again multiple small bowel loops seen diffusely in the abdomen more the left side. There are transition appears to be in the right lower abdomen where there is diffuse wall thickening of the small bowel. No focal abnormality is identified. The stomach shows no focal abnormality. There is again a small amount of ascites present. No fluid collections, free air or focal areas of in flammation. Lymph node assessment: No pathologic adenopathy identified. Pelvic structures: Prostate again is enlarged and heterogeneous without discrete focal normality. This does cause impression to the urinary bladder. Urinary bladder shows no other focal abnormality. The remaining pelvic structures visualized within normal limits. Vessels: Mild to moderate atherosclerotic calcifications seen throughout a nonaneurysmal abdominal ao rta and branches. Musculoskeletal / Body wall: No acute or aggressive osseous abnormality. Degenerative changes especia lly L4-S1 which are stable. IMPRESSION: 1. Continues to be small bowel obstruction. The area of transition appears to be in the right lower a bdomen where there is diffuse wall thickening of the small bowel in this region without focal abnorma lity. This could be secondary to enteritis, inflammatory bowel disease or less likely ischemia. 2. There continues be small ascites. Small bilateral pleural effusion with associated atelectasis whi ch is new. Continued small pericardial fluid. 3. Other chronic stable findings as above. I called report to EVELINE MONTGOMERY at 04/13/2018 7:39 PM. Report Dictated By: Domingo Morales at 04/13/2018 7:29 PM Report E-Signed By: Domingo Morales at 04/13/2018 7:39 PM WSN:[id number]
[2018-04-13] MEDS ORDERED: LIDOCAINE 4% SOLN 50 ML BTL TP ONE (19:50)
[2018-04-13] MEDS ORDERED: LIDOCAINE MPF 4% 200MG/5ML AMP INH ONE (19:55)
--- NOTE | 2018-04-13 20:25 | General Surgery Consultation ---
History of Present Illness Requesting Physician Bhaskar Reason for Consult possible SBO Chief Complaint abdominal distension and vomiting History of Present Illness 77 year old male with multiple medical problems discharged two days ago after two day admission for similar symptoms. He had NG decompression and a SBFT that showed rapid transit to colon without evidence of mechanical obstruction. CT tonight similar to last admission. Has small liquid stool this am. Denies fever or chills. History Problems: (1) Chronic systolic (congestive) heart failure (2) Nausea & vomiting Status: Acute (3) CKD (chronic kidney disease) Status: Chronic (4) History of pulmonary embolism Status: Chronic (5) GERD (gastroesophageal reflux disease) Status: Chronic (6) BPH (benign prostatic hyperplasia) Status: Chronic (7) Hypothyroid Status: Chronic (8) Multiple myeloma Status: Chronic (9) Atrial flutter Status: Chronic (10) History of splenectomy Status: Chronic (11) History of cholecystectomy Status: Chronic Home Meds Active Scripts Diclofenac Sodium 1% Gel (VOLTAREN 1% GEL) 100 Gm Gel..gram., 2 GM TOP TID for 30 Days, #1 TUBE Prov:ADY TIRADO MD 03/08/18 Pantoprazole Sodium (PROTONIX) 40 Mg Tablet.dr, 40 MG PO BID for 60 Days, #60 TAB.SR Prov:ADY TIRADO MD 02/08/18 Clopidogrel Bisulfate (CLOPIDOGREL) 75 Mg Tablet, 75 MG PO QDAY for 90 Days, #90 TAB 3 Refills Prov:ADY TIRADO MD 01/11/18 Apixaban (ELIQUIS) 5 Mg Tablet, 5 MG PO BID, #60 TAB 3 Refills Prov:ADY TIRADO MD 01/09/18 Rosuvastatin Calcium (CRESTOR) 40 Mg Tablet, 1 TAB PO QDAY for 90 Days, #90 TAB 4 Refills Prov:ADY TIRADO MD 01/06/18 Carvedilol (CARVEDILOL) 6.25 Mg Tab, 1 TAB PO BID, #30 TAB 6 Refills Prov:ADY TIRADO MD 12/20/17 Triamcinolone Acetonide 0.1% Oint 15 Gm Tube (TRIAMCINOLONE ACETONIDE 0.1% 15 GM TUBE) 15 Gm Oint...g., 15 GM TP DAILY for 14 Days, #1 TUBE Prov:ELIS VALLE MD 12/07/17 Clobetasol Propionate (CLOBETASOL PROPIONATE) 15 Gm Oint...g., 1 BRANDAN TP BID for 30 Days, #1 TUBE 2 Refills Prov:ADY TIRADO MD 12/07/17 Finasteride (FINASTERIDE) 5 Mg Tablet, 5 MG PO QHS, #90 TAB 1 Refill Prov:ELIS VALLE MD 07/14/17 Ferrous Sulfate (FERROUS SULFATE) 325 Mg Tablet, 325 MG PO DAILY, #30 TAB 5 Refills Prov:ELIS VALLE MD 06/09/17 Levothyroxine Sodium (LEVOTHYROXINE SODIUM) 0.112 Mg Tab, 0.112 MG PO QAM, #90 TAB 3 Refills Prov:ELIS VALLE MD 06/04/17 Reported Medications Prednisolone Acetate/Pf (Prednisolone Acet 1% Eye Drop) 1 % Drops.susp, 2 DROP OU QID 04/07/18 Ofloxacin (Ofloxacin) 0.3 % Drops, 1 DROP OU QID 04/07/18 Ketorolac Tromethamine/Pf (ACUVAIL 0.45% OPHTH SOLUTION) 1 Each Droperette, 1 DROP OP QID 04/07/18 Acetaminophen (TYLENOL EXTRA STRENGTH) 500 Mg Tablet, 2 TAB PO BID PRN for pain, CAP 01/11/18 Riociguat (Adempas) 2.5 Mg Tablet, 1 TAB PO TID 11/25/17 Cholecalciferol (Vitamin D3) (VITAMIN D) 5,000 Unit Tablet, 1 TAB PO DAILY 11/25/17 Furosemide (LASIX) 40 Mg Tablet, 1 TAB PO QDAY, TAB 10/20/17 Oxygen (OXYGEN) Inha, 5 L INH, L 08/07/17 Discontinued Reported Medications Duloxetine Hcl (CYMBALTA) 60 Mg Capsule.dr, 60 MG PO QDAY for 90 Days, #90 CAP 12/20/17 Discontinued Scripts Prednisone (PREDNISONE) 20 Mg Tablet, 10-40 MG PO QDAY, #7 2 pills for 2 days, then 1 for 2 days, the 1/2 for 2 days Prov:WILLIAM REDMAN MD 04/07/18 Levofloxacin 750 Mg Tab (LEVOFLOXACIN 750 MG TAB) 750 Mg Tablet, 750 MG PO DAILY, #1 TAB Take at 4pm on 04/08 Prov:WILLIAM REDMAN MD 04/07/18 Allergies: Coded Allergies: trazodone (Verified Allergy, Intermediate, 04/13/18) oxycodone (Verified Adverse Reaction, Unknown, Hallucinations, 04/13/18) Family History: Cerebral hemorrhage FATHER, , Age:47 FH polycystic kidney FATHER, , Age:47 BROTHER OR SISTER BROTHER OR SISTER FH: alcohol abuse CHILD FH: cancer MOTHER, , Age:64 FH: diabetes mellitus CHILD FH: hypertension FATHER, , Age:47 Review of Systems All Systems Reviewed/Normal: Yes, Except as Noted Respiratory: Shortness of Breath Gastrointestinal: Nausea, Vomiting, Constipation Psychiatric: Anxiety Exam Vital Signs Vital Signs Date Time Temp Pulse Resp B/P (MAP) Pulse Ox O2 Delivery O2 Flow Rate FiO2 04/13/18 20:00 94 Nasal Cannula 2.5 04/13/18 20:00 114 20 04/13/18 19:12 178/103 (128) 04/13/18 18:04 97.8 General Appearance: Alert, Awake, No Acute Distress, Afebrile Neuro: No Gross deficits ENT: Moist Mucous Membranes Cardiovascular: Regular Rate and Rhythm Respiratory: Other (purse lip breathing, diminished both bases) GI: Other (Abdomen is distended soft, no significant tenderness, reducible umbilical hernia, BS hypoactive) Extremities: Other (venous stasis dermatitis) Psych: Alert & Oriented X3, Appropriate Mood & Affect Medical Decision Making Data Points Result Diagram: 04/13/18182204/13/181822 Assessment and Plan Problems: (1) Nausea & vomiting Status: Acute Assessment & Plan: 04/13/2018: Meño had SBFT done two days ago that showed no obstruction. Abdomen is distended, but soft without significant tenderness. WBC down to 11 K. My impression is that this represents ileus. He does have a history of hypothyroidism but admits to not routinely taking his levothyroxin. He did take it last night. Agree with plan of NG decompression and IV hydration. Patient being admitted to Hospitalist service for further work up to see if we can determine the etiology of his ileus. Surgery will continue to follow closely during his admission. Time Spent: < 30 min Venous Thromboembolism VTE Risk Physician Assess for VTE Risk: Yes Patient's VTE Risk: High VTE Diagnostic Test 2 Days Prior to Admit: No Antithrombotics Is Pt On Any Antithrombotics?: Yes Heart Failure Ejection Fraction %: 60 RVSP (mmHg): 82 NYHA Class: II Is Patient on MAHI Inhibitor?: No Is Patient on Beta Jigar?: Yes REESE BEE MD Apr 13, 2018 20:24
--- NOTE | 2018-04-13 21:12 | History & Physical ---
History of Present Illness Chief Complaint n/v History of Present Illness 77M discharged 11.05 after evaluation of SBO, presented to ER with recurrent symptoms. After NG tube decompression last admission SBFT showed rapid transit of Gastrografin into colon and patient was discharged home. He noted symptoms recurring today and reports one small liquid stool. Denies any recent EtOH despite Hx and smelling of EtOH. Reports able to eat some food after getting home and had advanced diet from clears Wednesday to steak on Wednesday. Decision made to admit to medicine given multiple comorbidities with surgery consult from Dr Calles. History Problems: (1) Monoclonal gammopathies Status: Chronic (2) Hypothyroid Status: Chronic (3) CAD (coronary artery disease) Status: Chronic (4) CHF (congestive heart failure) Status: Chronic (5) CKD (chronic kidney disease) Status: Chronic Home Meds Active Scripts Diclofenac Sodium 1% Gel (VOLTAREN 1% GEL) 100 Gm Gel..gram., 2 GM TOP TID for 30 Days, #1 TUBE Prov:ADY TIRADO MD 03/08/18 Pantoprazole Sodium (PROTONIX) 40 Mg Tablet.dr, 40 MG PO BID for 60 Days, #60 TAB.SR Prov:ADY TIRADO MD 02/08/18 Clopidogrel Bisulfate (CLOPIDOGREL) 75 Mg Tablet, 75 MG PO QDAY for 90 Days, #90 TAB 3 Refills Prov:ADY TIRADO MD 01/11/18 Apixaban (ELIQUIS) 5 Mg Tablet, 5 MG PO BID, #60 TAB 3 Refills Prov:ADY TIRADO MD 01/09/18 Rosuvastatin Calcium (CRESTOR) 40 Mg Tablet, 1 TAB PO QDAY for 90 Days, #90 TAB 4 Refills Prov:ADY TIRADO MD 01/06/18 Carvedilol (CARVEDILOL) 6.25 Mg Tab, 1 TAB PO BID, #30 TAB 6 Refills Prov:ADY TIRADO MD 12/20/17 Triamcinolone Acetonide 0.1% Oint 15 Gm Tube (TRIAMCINOLONE ACETONIDE 0.1% 15 GM TUBE) 15 Gm Oint...g., 15 GM TP DAILY for 14 Days, #1 TUBE Prov:ELIS VALLE MD 12/07/17 Clobetasol Propionate (CLOBETASOL PROPIONATE) 15 Gm Oint...g., 1 BRANDAN TP BID for 30 Days, #1 TUBE 2 Refills Prov:ADY TIRADO MD 12/07/17 Finasteride (FINASTERIDE) 5 Mg Tablet, 5 MG PO QHS, #90 TAB 1 Refill Prov:ELIS VALLE MD 07/14/17 Ferrous Sulfate (FERROUS SULFATE) 325 Mg Tablet, 325 MG PO DAILY, #30 TAB 5 Refills Prov:ELIS VALLE MD 06/09/17 Levothyroxine Sodium (LEVOTHYROXINE SODIUM) 0.112 Mg Tab, 0.112 MG PO QAM, #90 TAB 3 Refills Prov:ELIS VALLE MD 06/04/17 Reported Medications Prednisolone Acetate/Pf (Prednisolone Acet 1% Eye Drop) 1 % Drops.susp, 2 DROP OU QID 04/07/18 Ofloxacin (Ofloxacin) 0.3 % Drops, 1 DROP OU QID 04/07/18 Ketorolac Tromethamine/Pf (ACUVAIL 0.45% OPHTH SOLUTION) 1 Each Droperette, 1 DROP OP QID 04/07/18 Acetaminophen (TYLENOL EXTRA STRENGTH) 500 Mg Tablet, 2 TAB PO BID PRN for pain, CAP 01/11/18 Riociguat (Adempas) 2.5 Mg Tablet, 1 TAB PO TID 11/25/17 Cholecalciferol (Vitamin D3) (VITAMIN D) 5,000 Unit Tablet, 1 TAB PO DAILY 11/25/17 Furosemide (LASIX) 40 Mg Tablet, 1 TAB PO QDAY, TAB 10/20/17 Oxygen (OXYGEN) Inha, 5 L INH, L 08/07/17 Discontinued Reported Medications Duloxetine Hcl (CYMBALTA) 60 Mg Capsule.dr, 60 MG PO QDAY for 90 Days, #90 CAP 12/20/17 Discontinued Scripts Prednisone (PREDNISONE) 20 Mg Tablet, 10-40 MG PO QDAY, #7 2 pills for 2 days, then 1 for 2 days, the 1/2 for 2 days Prov:WILLIAM REDMAN MD 04/07/18 Levofloxacin 750 Mg Tab (LEVOFLOXACIN 750 MG TAB) 750 Mg Tablet, 750 MG PO DAILY, #1 TAB Take at 4pm on 04/08 Prov:WILLIAM REDMAN MD 04/07/18 Allergies: Coded Allergies: trazodone (Verified Allergy, Intermediate, 04/13/18) oxycodone (Verified Adverse Reaction, Unknown, Hallucinations, 04/13/18) Patient History: Cerebral hemorrhage FATHER, , Age:47 FH polycystic kidney FATHER, , Age:47 BROTHER OR SISTER BROTHER OR SISTER FH: alcohol abuse CHILD FH: cancer MOTHER, , Age:64 FH: diabetes mellitus CHILD FH: hypertension FATHER, , Age:47 Hx Smoking: Yes Smoking Status: Never Smoker Exposure to Second Hand Smoke?: Yes Caffeine Intake: Soda Caffeine/Cups Per Day: 1 Hx Alcohol Use: No Hx Substance Use Disorder: No Social Drug Use: Never Review of Systems All Systems Reviewed/Normal: Yes, Except as Noted Constitutional: No Fever Respiratory: No Shortness of Breath Gastrointestinal: Nausea, Vomiting, Abdominal Pain Exam Vital Signs Vital Signs Date Time Temp Pulse Resp B/P (MAP) Pulse Ox O2 Delivery O2 Flow Rate FiO2 04/13/18 20:00 94 Nasal Cannula 2.5 04/13/18 20:00 114 20 04/13/18 19:12 178/103 (128) 04/13/18 18:04 97.8 General Appearance: Alert, Awake, No Acute Distress Neuro: No Gross deficits Eyes: PERRLA ENT: Normal Cardiovascular: Normal Rhythm & Peripheral Pulses Respiratory: No Respiratory Distress GI: Other (distended, tender, tympanic, no rebound or guarding) Musculoskeletal: No Weakness/Pain Extremities: Soft and Non Tender, Warm, Pulses, Perfused; No Edema Integumentary: Skin Intact without Lesion / Mass Psych: Alert & Oriented X3 Medical Decision Making Data Points Result Diagram: 04/13/18182204/13/181822 Assessment and Plan Problems: (1) Nausea & vomiting Status: Acute Assessment & Plan: Secondary to ileus vs obstruction, WBC improving. Dr Calles consulted. NG tube to LIWS, possible SBFT tomorrow. Pain control and NPO, recheck lactate. Will provide medications IV that are available. (2) Monoclonal gammopathies Status: Chronic Assessment & Plan: Indolent per report, follows with cancer center. (3) CHF (congestive heart failure) Assessment & Plan: Has new pleural effusions possibly secondary to volume overload from CHF and recent IV fluids. Will check BNP, get daily weight. Judicious use IV fluids. Recent ECHO shows right sided heart failure with severe pulmonary HTN. (4) Chronic kidney disease Status: Chronic Assessment & Plan: Stage 2 per record review, Cr baseline 1.0-1.2 (5) CAD (coronary artery disease) Status: Chronic Assessment & Plan: Holding Plavix and Crestor while NPO. (6) Hypothyroid Status: Chronic Assessment & Plan: On 112mcg daily, will give IV while NPO. (7) Pulmonary hypertension Status: Chronic Assessment & Plan: Holding riociguat while NPO. (8) DVT (deep venous thrombosis) Status: Chronic Assessment & Plan: On chronic Eliquis, holding while NPO. Venous Thromboembolism Antithrombotics Is Pt On Any Antithrombotics?: Yes Heart Failure Ejection Fraction %: 60 RVSP (mmHg): 82 NYHA Class: II Is Patient on MAHI Inhibitor?: No Is Patient on Beta Jigar?: Yes Exam Sepsis Risk: No Definite Risk SIGALA MADISYN HERNANDEZ DO Apr 13, 2018 21:12
[2018-04-13] MEDS ORDERED: INFLUENZA VIRUS VAC 0.5ML SYR IM ONLY ONE (21:15)
[2018-04-13] MEDS ORDERED: FLUSH 10 ML SYR IVP PRN (21:15)
--- NOTE | 2018-04-13 21:19 | RADIOLOGY IMAGING REPORT ---
[facility] PATIENT NAME: Meño Arechiga : 1940 MR: [id number] V: [id number] EXAM DATE: ORDERING PHYSICIAN: EVELINE MONTGOMERY TECHNOLOGIST: Location: [facility] Patient: Meño Arechiga : 1940 Visit/Account:[id number] Date of Sevice: 04/13/2018 INDICATION: NGT tube placement. DATE: 04/13/2018 9:14 PM. TECHNIQUE: CHEST SINGLE AP COMPARISON: CT abdomen and pelvis of the same day FINDINGS: Esophagogastric tube tip is within the stomach directed toward the fundus. Small pleural ef fusions are better demonstrated by CT. The cardiac silhouette remains enlarged. IMPRESSION: Esophagogastric tube tip near the gastric fundus. Report Dictated By: Will Regalado MD at 04/13/2018 9:14 PM Report E-Signed By: Will Regalado MD at 04/13/2018 9:16 PM WSN:[id number]
[2018-04-13 21:55] VITALS: BP 153/105
[2018-04-13] MEDS ORDERED: NS(*) 0.9% 1000 ML BAG 1,000 ML IV PRN (22:20)
[2018-04-13] MEDS: MORPHINE 4 MG/ML SDV IVP PRN (22:37)
[2018-04-13] MEDS: ONDANSETRON 4 MG/2 ML VIAL IVP PRN (22:37)
[2018-04-13 23:24] VITALS: BP 167/88
[2018-04-14 03:23] VITALS: BP 143/47
[2018-04-14 05:51] LABS: PLATELET COUNT, AUTOMATED 320 K/uL (150-450)
[2018-04-14] MEDS: NS(*) 0.9% 1000 ML BAG 1,000 ML IV PRN ×3 (06:11→19:18)
[2018-04-14 07:10] VITALS: BP 131/106
[2018-04-14 07:55] VITALS: Ht 167.6 cm; Wt 74.8 kg
[2018-04-14] MEDS ORDERED: LEVOTHYROXINE SOD 100 MCG VIAL IVP SCH (09:00)
[2018-04-14] MEDS: ENOXAPARIN 40 MG/0.4ML SYR SC SCH (09:26)
--- NOTE | 2018-04-14 10:32 | Hospitalist Progress Note ---
Subjective Progress Notes Subjective This patient was readmitted with a small bowel obstruction. He had no acute events overnight. Patient Complains of: Cardiovascular: No: Chest Pain Respiratory: No: Shortness of Breath Physical Exam Vital Signs Date Time Temp Pulse Resp B/P (MAP) Pulse Ox O2 Delivery O2 Flow Rate FiO2 04/14/18 07:10 98.4 12 131/106 (114) 90 Nasal Cannula 4.0 04/14/18 03:23 88 Intake and Output 04/14/18 07:00 Intake Total 1560 ml Output Total 1575 ml Balance -15 ml Intake IV Total 1500 ml Tube Irrigant 60 ml Output Urine Total 525 ml Gastric Drainage Total 1050 ml # Voids 2 Cardiovascular: Regular Rate and Rhythm Respiratory: Clear to Auscultation GI: Soft and Non-Tender Result Diagram: 04/14/1852904/14/18529 Assessment and Plan Problems: (1) Nausea & vomiting Status: Acute Assessment & Plan: Surgery is managing this. He currently has an NG tube in place. (2) Monoclonal gammopathies Status: Chronic Assessment & Plan: Indolent per report, follows with cancer center. (3) CHF (congestive heart failure) Assessment & Plan: Has new pleural effusions possibly secondary to volume overload from CHF and recent IV fluids. Will check BNP, get daily weight. Judicious use IV fluids. Recent ECHO shows right sided heart failure with severe pulmonary HTN. (4) Chronic kidney disease Status: Chronic Assessment & Plan: Stage 2 per record review, Cr baseline 1.0-1.2 (5) CAD (coronary artery disease) Status: Chronic Assessment & Plan: Holding Plavix and Crestor while NPO. (6) Hypothyroid Status: Chronic Assessment & Plan: On 112mcg daily, will give IV while NPO. (7) Pulmonary hypertension Status: Chronic Assessment & Plan: Holding riociguat while NPO. (8) DVT (deep venous thrombosis) Status: Chronic Assessment & Plan: On chronic Eliquis, holding while NPO. Heart Failure Ejection Fraction %: 60 RVSP (mmHg): 82 NYHA Class: II Is Patient on MAHI Inhibitor?: No Is Patient on Beta Jigar?: Yes Exam Sepsis Risk: No Definite Risk NAN CORTES DO Apr 14, 2018 10:32
--- NOTE | 2018-04-14 15:25 | Medical Nutrition Therapy ---
Nutrition Anthropometrics Height (Inches): 66.00 Height (Calculated Centimeters: 167.076752 Weight (Pounds): 157 Weight (Calculated Kilograms): 71.214 BMI: 25.3 Christiano Nutrition Score: Probably Inadequate Christiano Nutrition Risk Score: 18 Dietary Referral Nutrition Risk Factors: Nutrition Risk Comment: NG for suction Physical Findings Physical Appearance: Overweight BMI 25-29 Skin Appearance Skin Appearance: Edema Edema Location Modifier: Edema Location: Type of Edema: Degree of Edema: Gastrointestinal Symptoms GI Symtoms: Change in Bowel Pattern Tube Present: NG Bowel Sounds: Recent Bowel Pattern: Stool Characteristics: Nutritional Diagnosis Nutritional Risk Acuity 1: GI Obstruction Nutritional Risk Acuity 2: CHF w/Complication, Chronic Renal Failure Nutritional Risk Acuity 3: Nausea Past Medical History: Hx of CHF, CKD-2, DVT, CAD, hypothyroid Nutritional Acuity: 1-High Nutrition Diagnosis: Increased Nutrient Needs Nutrition Etiology: Physiological Causes Nutrition Problem/Etiology/Sym: AEB low alb 2.6, Ca 8.2 Energy Requirement: 1650 (M-SJ * 1.2) Protein Requirement: 80 (71kg* 1.1) Fluid Requirement: 1650 (1ml/kcal) Diet Type: NPO (Nothing by Mouth) Nutrition Intervention: Incr diet as tolerated Nutrition Monitoring & Eval Nutrition Goals: Eat 75-100% Meal, Drink > 1500 cc/day RD Patient Assessment Time: [address] Assessment Type: RD Assessment Patient Nutrition Acuity: 1-High Follow Up Date: Apr 17, 2018 Nutritional Comment: 04/14 Pt discharged on 11.5 after evaluatin of SBO. Pt admitted 11.8 for SBO with symptoms of n/v and abd pain. Pt reported going home on a clear liq diet, and eating steak the follwing day. Pt has hx of CAD, CHF, CDK-2, DVT, and hypothyroid. Pt NPO and on NG tube for suction. Pt has 60% ejection fraction, BNP 297. Pt has low CA of 8.2, Mg of 1.5, and Alb at 2.6. JEROD BISWAS Apr 14, 2018 11:47
[2018-04-14 15:46] VITALS: BP 161/77
[2018-04-14] MEDS: OFLOXACIN 0.3% OP SOLN 5ML BTL OD SCH ×2 (17:00→21:00)
[2018-04-14 19:24] VITALS: BP 162/79
--- NOTE | 2018-04-14 20:06 | General Surgery Progress Note ---
Subjective Progress Notes Subjective "My mouth is dry", no flatus or BM yet Physical Exam Vital Signs Date Time Temp Pulse Resp B/P (MAP) Pulse Ox O2 Delivery O2 Flow Rate FiO2 04/14/18 19:32 Nasal Cannula 4.0 04/14/18 19:24 97.7 76 16 162/79 (106) 94 Intake and Output 04/14/18 06:59 Intake Total 1560 ml Output Total 1575 ml Balance -15 ml Intake IV Total 1500 ml Tube Irrigant 60 ml Output Urine Total 525 ml Gastric Drainage Total 1050 ml # Voids 2 General Appearance: Alert, Awake, No Acute Distress, Afebrile Neuro: No Gross deficits GI: Soft and Non-Tender (Bowel sounds still hypoactive) Extremities: Soft and Non Tender Result Diagram: 04/14/1852904/14/18529 Assessment and Plan Problems: (1) Nausea & vomiting Status: Acute Assessment & Plan: 04/13/2018: Meño had SBFT done two days ago that showed no obstruction. Abdomen is distended, but soft without significant tenderness. WBC down to 11 K. My impression is that this represents ileus. He does have a history of hypothyroidism but admits to not routinely taking his levothyroxin. He did take it last night. Agree with plan of NG decompression and IV hydration. Patient being admitted to Hospitalist service for further work up to see if we can determine the etiology of his ileus. Surgery will continue to follow closely during his admission. 04/14/2018: Abdomen much less distended after NG suction. No significant tenderness. WBC down to 9K. Will continue NG suction and IVF's, will get F/U abdomen radiographs in am. Exam Sepsis Risk: No Definite Risk REESE BEE MD Apr 14, 2018 20:06
[2018-04-14] MEDS ORDERED: MAGNESIUM SUL* 2 GM/50 ML IVPB 50 ML IVPB ONE (20:15)
[2018-04-14] MEDS: prednisoLONE ACE 1% OP 5ML BTL OD SCH (21:06)
[2018-04-14] MEDS: KETOROLAC TROM 0.5% OP 3 ML BTL OD SCH (21:06)
[2018-04-14 23:43] VITALS: BP 153/91
[2018-04-15] MEDS: NS(*) 0.9% 1000 ML BAG 1,000 ML IV PRN (04:40)
[2018-04-15 06:17] LABS: PLATELET COUNT, AUTOMATED 319 K/uL (150-450)
[2018-04-15] MEDS ORDERED: D5NS(*) 1000 ML BAG 1,000 ML IV PRN (06:40)
--- NOTE | 2018-04-15 07:00 | RADIOLOGY IMAGING REPORT ---
FACILITY: [facility] PATIENT NAME: Meño Arechiga : 1940 MR: [id number] V: [id number] EXAM DATE: ORDERING PHYSICIAN: REESE BEE TECHNOLOGIST: Location: [facility] [place] Patient: Meño Arechiga : 1940 Visit/Account:[id number] Date of Sevice: 04/15/2018 EXAMINATION: Abdomen 2 views HISTORY: Follow-up after NG decompression. COMPARISON: CT abdomen/pelvis 04/13/2018. FINDINGS: New NG tube present, with tip overlying the proximal stomach in the left upper abdomen. There is a small amount of air scattered throughout nondilated segments of small bowel and colon, wit h interval decrease in the amount of bowel gas compared to the prior CT. Otherwise no change. Cholecystectomy clips in the right upper abdomen. Calcified granulomas in the li emeli. Vascular calcifications, with bilateral common iliac artery stents. No acute osseous findings. Scattered degenerative changes throughout the spine. Small bilateral pleural effusions. Calcified granuloma in the left lung base. IMPRESSION: 1. NG tube in the stomach. 2. Interval decrease in the amount of bowel gas. No radiographic evidence of any dilated air-filled b owel loops at this time. Report Dictated By: Gomez Reese MD at 04/15/2018 6:50 AM Report E-Signed By: Gomez Reese MD at 04/15/2018 6:55 AM WSN:[id number]
[2018-04-15 08:22] VITALS: BP 151/91
[2018-04-15] MEDS ORDERED: LEVOTHYROXINE SOD 100 MCG VIAL IVP SCH (09:00)
[2018-04-15] MEDS: OFLOXACIN 0.3% OP SOLN 5ML BTL OD SCH ×5 (09:00→20:26)
[2018-04-15] MEDS ORDERED: KCL 2 MEQ/ML 20 MEQ/10 ML VIAL 20 MEQ in D5NS(*) 1000 ML BAG 1,000 ML IV PRN (09:02)
--- NOTE | 2018-04-15 09:12 | General Surgery Progress Note ---
Subjective Progress Notes Subjective denies abdominal pain, requesting ice chips. No flatus or stool. Physical Exam Vital Signs Date Time Temp Pulse Resp B/P (MAP) Pulse Ox O2 Delivery O2 Flow Rate FiO2 04/15/18 08:39 97 Nasal Cannula 4.0 04/15/18 08:22 98.3 93 16 151/91 (111) Intake and Output 04/15/18 06:59 Intake Total 1240 ml Output Total 4875 ml Balance -3635 ml Intake IV Total 1180 ml Tube Irrigant 60 ml Output Urine Total 425 ml Gastric Drainage Total 4450 ml # Voids 3 General Appearance: Alert, Awake, No Acute Distress, Afebrile Neuro: No Gross deficits Cardiovascular: Other (cor IRRR) Respiratory: No Respiratory Distress, Clear to Auscultation GI: Soft and Non-Tender, Other (no peritoneal s/s) Musculoskeletal: No Weakness/Pain Integumentary: Skin Intact without Lesion / Mass Psych: Alert & Oriented X3, Appropriate Mood & Affect Result Diagram: 04/15/18 0552 04/15/18 0552 Assessment and Plan Problems: (1) Nausea & vomiting Status: Acute Assessment & Plan: 04/13/2018: Meño had SBFT done two days ago that showed no obstruction. Abdomen is distended, but soft without significant tenderness. WBC down to 11 K. My impression is that this represents ileus. He does have a history of hypothyroidism but admits to not routinely taking his levothyroxin. He did take it last night. Agree with plan of NG decompression and IV hydration. Patient being admitted to Hospitalist service for further work up to see if we can determine the etiology of his ileus. Surgery will continue to follow closely during his admission. 04/14/2018: Abdomen much less distended after NG suction. No significant tenderness. WBC down to 9K. Will continue NG suction and IVF's, will get F/U abdomen radiographs in am. 04/15/2018: Abdomen less distended, soft, and benign this am. Ileus persists, so cont NGT and bowel rest. Int Med team to correct metabolic and electrolyte a bnormalities Exam Sepsis Risk: No Definite Risk AMPARO JONES MD Apr 15, 2018 09:12
[2018-04-15] MEDS: KETOROLAC TROM 0.5% OP 3 ML BTL OD SCH ×2 (09:21→20:24)
[2018-04-15] MEDS: prednisoLONE ACE 1% OP 5ML BTL OD SCH ×2 (09:21→20:25)
[2018-04-15] MEDS: ENOXAPARIN 40 MG/0.4ML SYR SC SCH (09:31)
[2018-04-15] MEDS: LEVOTHYROXINE SOD 100 MCG VIAL IVP SCH (09:31)
[2018-04-15] MEDS: RIOCIGUAT 2.5 MG PO SCH ×3 (09:31→20:21)
--- NOTE | 2018-04-15 10:11 | Hospitalist Progress Note ---
Subjective Progress Notes Subjective He reports no flatus or BM as of yet. Physical Exam Vital Signs Date Time Temp Pulse Resp B/P (MAP) Pulse Ox O2 Delivery O2 Flow Rate FiO2 04/15/18 08:39 97 Nasal Cannula 4.0 04/15/18 08:22 98.3 93 16 151/91 (111) Intake and Output 04/15/18 07:00 Intake Total 1240 ml Output Total 4875 ml Balance -3635 ml Intake IV Total 1180 ml Tube Irrigant 60 ml Output Urine Total 425 ml Gastric Drainage Total 4450 ml # Voids 3 General Appearance: Alert, Awake Cardiovascular: Regular Rate and Rhythm (distant tones) Respiratory: Clear to Auscultation GI: Other (slight distension/no BS noted) Extremities: Warm, Perfused Psych: Alert & Oriented X3 Result Diagram: 04/15/1855104/15/18551 Assessment and Plan Problems: (1) Nausea & vomiting Status: Acute Assessment & Plan: Improved with NG decompression. (2) Monoclonal gammopathies Status: Chronic Assessment & Plan: Indolent per report, follows with cancer center. (3) CHF (congestive heart failure) Assessment & Plan: CXR shows small pleural effusions. BNP (297) was lower than his usual. Judicious use of IV fluids. Recent ECHO shows right sided heart failure with severe pulmonary HTN. He is on chronic Adempas 2.5mg PO TID. Will try to restart today (take with sip of water and clamp NG). If unable to restart the Adempas today or tomorrow, we will need to re-titrate when we do resume it. (4) Chronic kidney disease Status: Chronic Assessment & Plan: Stage 2 per record review, Cr baseline 1.0-1.2 (5) CAD (coronary artery disease) Status: Chronic Assessment & Plan: Holding Plavix and Crestor while NPO. (6) Hypothyroid Status: Chronic Assessment & Plan: On 112mcg daily, will give IV(60mcg) while NPO. (7) Pulmonary hypertension Status: Chronic Assessment & Plan: Will try to restart today as noted above. (8) DVT (deep venous thrombosis) Status: Chronic Assessment & Plan: On chronic Eliquis, holding while NPO. He is on Lovenox. Heart Failure Ejection Fraction %: 60 RVSP (mmHg): 82 NYHA Class: II Is Patient on MAHI Inhibitor?: No Is Patient on Beta Jigar?: Yes Exam Sepsis Risk: No Definite Risk RONDA GARCIA MD Apr 15, 2018 10:11
[2018-04-15] MEDS: KCL/DNS 20 MEQ/1000 ML PREMIX 1,000 ML IV PRN ×3 (11:26→20:26)
[2018-04-15 16:52] VITALS: BP 133/60
[2018-04-15] MEDS: ONDANSETRON 4 MG/2 ML VIAL IVP PRN (16:59)
[2018-04-15] MEDS: MORPHINE 4 MG/ML SDV IVP PRN (17:00)
[2018-04-15 19:28] VITALS: BP 147/84
[2018-04-15] MEDS: ENOXAPARIN 100 MG/ML SYR SC SCH (20:20)
[2018-04-16] VITALS (8 sets, daily range): BP systolic 125–146; BP diastolic 71–96
[2018-04-16] MEDS: KCL/DNS 20 MEQ/1000 ML PREMIX 1,000 ML IV PRN (04:31)
[2018-04-16 06:13] LABS: PLATELET COUNT, AUTOMATED 263 K/uL (150-450)
[2018-04-16] MEDS ORDERED: KCL (*) 20 MEQ/100 ML PREMIX 100 ML IV ONE ×2 (06:35→11:00)
[2018-04-16] MEDS: NS(*) 0.9% 500 ML BAG 500 ML IV PRN ×2 (07:25→11:39)
[2018-04-16] MEDS ORDERED: NS(*) 0.9% 500 ML BAG 500 ML ONE (07:26)
--- NOTE | 2018-04-16 08:36 | General Surgery Progress Note ---
Subjective Progress Notes Subjective + flatus, + hungry, no stool since admit Physical Exam Vital Signs Date Time Temp Pulse Resp B/P (MAP) Pulse Ox O2 Delivery O2 Flow Rate FiO2 04/16/18 07:31 98.6 81 16 146/81 (102) 91 Nasal Cannula 3.5 Intake and Output 04/16/18 06:59 Intake Total 1743 ml Output Total 5375 ml Balance -3632 ml Intake Oral 360 ml IV Total 1383 ml Output Urine Total 525 ml Gastric Drainage Total 4850 ml # Voids 4 General Appearance: Alert, Awake, No Acute Distress, Afebrile Neuro: No Gross deficits Neck: No Masses Cardiovascular: Other (cor IRRR) Respiratory: No Respiratory Distress, Clear to Auscultation GI: Soft and Non-Tender, Other (NGT clear output) Musculoskeletal: No Weakness/Pain Extremities: Soft and Non Tender, Warm, Pulses, Perfused Integumentary: Skin Intact without Lesion / Mass Psych: Alert & Oriented X3, Appropriate Mood & Affect Result Diagram: 04/16/18 0550 04/16/18 0550 Assessment and Plan Problems: (1) Nausea & vomiting Status: Acute Assessment & Plan: 04/13/2018: Meño had SBFT done two days ago that showed no obstruction. Abdomen is distended, but soft without significant tenderness. WB C down to 11 K. My impression is that this represents ileus. He does have a history of hypothyroidism but admits to not routinely taking his levothyroxin. He did take it last night. Agree with plan of NG decompression and IV hydration. Patient being admitted to Hospitalist service for further work up to see if we can determine the etiology of his ileus. Surgery will continue to follow closely during his admission. 04/14/2018: Abdomen much less distended after NG suction. No significant t enderness. WBC down to 9K. Will continue NG suction and IVF's, will get F/U abdomen radiographs in am. 04/15/2018: Abdomen less distended, soft, and benign this am. Ileus persists, so cont NGT and bowel rest. Int Med team to correct metabolic and electrolyte abnormalities. 04/16/2018: abdomen remains benign on exam with improved bowel function. DC NGT this am and continue NPO except meds with sips. Consider clear liquids this evening if continues to pass flatus. Time Spent: > 30 min Exam Sepsis Risk: No Definite Risk AMPARO JONES MD Apr 16, 2018 08:36
[2018-04-16] MEDS: OFLOXACIN 0.3% OP SOLN 5ML BTL OD SCH ×4 (09:00→21:00)
[2018-04-16] MEDS: KETOROLAC TROM 0.5% OP 3 ML BTL OD SCH ×2 (09:36→20:40)
[2018-04-16] MEDS: ENOXAPARIN 100 MG/ML SYR SC SCH ×2 (09:36→20:42)
[2018-04-16] MEDS: LEVOTHYROXINE SOD 100 MCG VIAL IVP SCH (09:37)
[2018-04-16] MEDS: METOPROLOL TART 5 MG/5 ML VIAL IVP SCH ×3 (09:38→20:46)
[2018-04-16] MEDS: RIOCIGUAT 2.5 MG PO SCH ×3 (09:38→20:41)
[2018-04-16] MEDS: prednisoLONE ACE 1% OP 5ML BTL OD SCH ×2 (09:38→20:46)
--- NOTE | 2018-04-16 13:43 | Hospitalist Progress Note ---
Subjective Progress Notes Subjective The patient is hungry. Otherwise no new complaints. Physical Exam Vital Signs Date Time Temp Pulse Resp B/P (MAP) Pulse Ox O2 Delivery O2 Flow Rate FiO2 04/16/18 13:02 98 16 130/74 (92) 91 Nasal Cannula 3.5 04/16/18 07:31 98.6 Intake and Output 04/16/18 06:59 Intake Total 1743 ml Output Total 5375 ml Balance -3632 ml Intake Oral 360 ml IV Total 1383 ml Output Urine Total 525 ml Gastric Drainage Total 4850 ml # Voids 4 General Appearance: Alert, Awake, No Acute Distress Eyes: PERRLA ENT: Other (NG tube in place.) Cardiovascular: Regular Rate and Rhythm Respiratory: Clear to Auscultation GI: Other (Soft, slightly distended, nontender. BS quiet.) Extremities: Warm, Perfused, Other (No edema.) Psych: Appropriate Mood & Affect Result Diagram: 04/16/18 0550 04/16/18 0550 Assessment and Plan Problems: (1) Nausea & vomiting Status: Acute Assessment & Plan: Improved with NG decompression. Surgery has DC'd NG tube this am. (2) Monoclonal gammopathies Status: Chronic Assessment & Plan: Indolent per report, follows with cancer center. (3) CHF (congestive heart failure) Assessment & Plan: CXR shows small pleural effusions. BNP (297) was lower than his usual. Judicious use of IV fluids. Recent ECHO shows right sided heart f ailure with severe pulmonary HTN. He is on chronic Adempas 2.5mg PO TID. Will try to restart today (take with sip of water and clamp NG). If unable to restart the Adempas today or tomorrow, we will need to re-titrate when we do resume it. (4) Chronic kidney disease Status: Chronic Assessment & Plan: Stage 2 per record review, Cr baseline 1.0-1.2 (5) CAD (coronary artery disease) Status: Chronic Assessment & Plan: Holding Plavix and Crestor while NPO. (6) Hypothyroid Status: Chronic Assessment & Plan: On 112mcg daily, will give IV(60mcg) while NPO. (7) Pulmonary hypertension Status: Chronic Assessment & Plan: Will try to restart today as noted above. (8) DVT (deep venous thrombosis) Status: Chronic Assessment & Plan: On chronic Eliquis, holding while NPO. He is on Lovenox. (9) Atrial fibrillation/flutter Status: Chronic Assessment & Plan: Heart rate increasing as patient has been off oral car vedilol due to NPO status. Will add metoprolol 3mg IV q6 hours while NPO and restart carvedilol when able. Time Spent on Plan of Care: < 30 min Heart Failure Ejection Fraction %: 60 RVSP (mmHg): 82 NYHA Class: II Is Patient on MAHI Inhibitor?: No Is Patient on Beta Jigar?: Yes Exam Sepsis Risk: No Definite Risk SIERRA GARCIA MD Apr 16, 2018 13:43
[2018-04-16] MEDS ORDERED: BISACODYL 10 MG SUPP PR PRN (16:15)
[2018-04-16] MEDS ORDERED: BISACODYL 10 MG SUPP PR ONE (16:15)
[2018-04-16] MEDS ORDERED: KCL/DNS 20 MEQ/1000 ML PREMIX 1,000 ML IV PRN (18:31)
--- NOTE | 2018-04-16 22:24 | Medical Nutrition Therapy ---
Nutrition Anthropometrics Height (Inches): 66.00 Height (Calculated Centimeters: 167.851236 Weight (Pounds): 145 Weight (Calculated Kilograms): 65.771 BMI: 25.3 Christiano Nutrition Score: Probably Inadequate Christiano Nutrition Risk Score: 18 Dietary Referral Nutrition Risk Factors: Nutrition Risk Comment: NG for suction Physical Findings Physical Appearance: WNR Skin Appearance Skin Appearance: Edema Edema Location Modifier: Both Edema Location: Foot Type of Edema: Degree of Edema: Gastrointestinal Symptoms GI Symtoms: Change in Bowel Pattern Tube Present: NG Bowel Sounds: Recent Bowel Pattern: Stool Characteristics: Nutritional Diagnosis Nutritional Risk Acuity 1: GI Obstruction Nutritional Risk Acuity 2: CHF w/Complication, Chronic Renal Failure Nutritional Risk Acuity 3: Nausea Past Medical History: Hx of CHF, CKD-2, DVT, CAD, hypothyroid Nutritional Acuity: 1-High Nutrition Diagnosis: Increased Nutrient Needs Nutrition Etiology: Physiological Causes Nutrition Problem/Etiology/Sym: AEB low alb 2.6, Ca 8.2 Energy Requirement: 1650 (M-SJ * 1.2) Protein Requirement: 80 (71kg* 1.1) Fluid Requirement: 1650 (1ml/kcal) Diet Type: Clear Liquids Nutrition Intervention: Incr diet as tolerated Nutrition Monitoring & Eval Nutrition Goals: Eat 75-100% Meal RD Patient Assessment Time: [address] Assessment Type: RD Re-Assessment Patient Nutrition Acuity: 1-High Follow Up Date: Apr 19, 2018 Nutritional Comment: 04/14 Pt discharged on 11.5 after evaluatin of SBO. Pt admitted 11.8 for SBO with symptoms of n/v and abd pain. Pt reported going home on a clear liq diet, and eating steak the follwing day. Pt has hx of CAD, CHF, CDK-2, DVT, and hypothyroid. Pt NPO and on NG tube for suction. Pt has 60% ejection fraction, BNP 297. Pt has low CA of 8.2, Mg of 1.5, and Alb at 2.6. TB 04/16/18 Pt improving with NG removed this AM and diet progression to Clear liquids. No reports of Clear liquid intake at present. Alb 2.9. Encourage intake. -SWETHA GALEANA Apr 16, 2018 22:24
[2018-04-17] MEDS: METOPROLOL TART 5 MG/5 ML VIAL IVP SCH (02:55)
[2018-04-17 02:56] VITALS: BP 116/74
[2018-04-17 06:07] LABS: PLATELET COUNT, AUTOMATED 233 K/uL (150-450)
[2018-04-17] MEDS ORDERED: APAP/HYDROCODONE 325/5 TAB PO PRN (08:10)
--- NOTE | 2018-04-17 09:05 | General Surgery Progress Note ---
Subjective Progress Notes Subjective no complaints, no NV Physical Exam Vital Signs Date Time Temp Pulse Resp B/P (MAP) Pulse Ox O2 Delivery O2 Flow Rate FiO2 04/17/18 02:56 111 20 116/74 (88) 90 Nasal Cannula 3.0 04/16/18 20:44 98.8 Intake and Output 04/17/18 07:00 Intake Total 2390 ml Output Total 1175 ml Balance 1215 ml Intake Oral 690 ml IV Total 1700 ml Output Urine Total 300 ml Stool Total 375 ml Gastric Drainage Total 500 ml # Voids 5 # Bowel Movements 8 General Appearance: Alert, Awake, No Acute Distress, Afebrile Neuro: No Gross deficits Cardiovascular: Other (cor IRRR) Respiratory: No Respiratory Distress, Clear to Auscultation GI: Soft and Non-Tender, Other (non- distended) Musculoskeletal: No Weakness/Pain Integumentary: Skin Intact without Lesion / Mass Psych: Alert & Oriented X3, Appropriate Mood & Affect Result Diagram: 04/17/1848 04/17/1848 Assessment and Plan Problems: (1) Nausea & vomiting Status: Acute Assessment & Plan: 04/13/2018: Meño had SBFT done two days ago that showed no obstruction. Abdomen is distended, but soft without significant tenderness. WBC down to 11 K. My impression is that this represents ileus. He does have a history of hypothyroidism but admits to not routinely taking his levothyroxin. He did take it last night. Agree with plan of NG decompression and IV hydration. Patient being admitted to Hospitalist service for further work up to see if we can determine the etiology of his ileus. Surgery will continue to follow closely during his admission. 04/14/2018: Abdomen much less distended after NG suction. No significant tenderness. WBC down to 9K. Will continue NG suction and IVF's, will get F/U abdomen radiographs in am. 04/15/2018: Abdomen less distended, soft, and benign this am. Ileus persists, so cont NGT and bowel rest. Int Med team to correct metabolic and electrolyte abnormalities. 04/16/2018: abdomen remains benign on exam with improved bowel function. DC NGT this am and continue NPO except meds with sips. Consider clear liquids this evening if continues to pass flatus. 04/17/2018: ileus resolved, ADAT. Would recommend an additional overnight observation since he was re-admitted this time with similar s/s so quickly from prior DC. Discussed with Int med team. Time Spent: > 30 min Exam Sepsis Risk: No Definite Risk AMPARO JONES MD Apr 17, 2018 09:05
[2018-04-17 09:29] VITALS: BP 110/74
[2018-04-17] MEDS: CLOPIDOGREL BISULFATE 75MG TAB PO SCH (09:32)
[2018-04-17] MEDS: FERROUS SULFATE 325 MG TAB PO SCH (09:32)
[2018-04-17] MEDS: CARVEDILOL 6.25 MG TAB PO SCH ×2 (09:32→20:17)
[2018-04-17] MEDS: CHOLECALCIFEROL 1000 UNIT TAB PO SCH (09:33)
[2018-04-17] MEDS: PANTOPRAZOLE SOD 40 MG TABEC PO SCH ×2 (09:33→20:17)
[2018-04-17] MEDS: APIXABAN 2.5 MG TABLET PO SCH ×2 (09:34→20:17)
[2018-04-17] MEDS: LEVOTHYROXINE SOD 0.112 MG TAB PO SCH (09:38)
[2018-04-17] MEDS: RIOCIGUAT 2.5 MG PO SCH ×3 (09:38→20:17)
[2018-04-17 09:40] VITALS: BP 110/74
--- NOTE | 2018-04-17 12:33 | Hospitalist Progress Note ---
Subjective Progress Notes Subjective 77M admitted for partial SBO. Passing stool, will take one more day to advance diet as he failed last time when d/c with clear liquids. Begin PO medication regimen. Patient Complains of: Gastrointestinal: Flatus, Bowel Movement; No Nausea, No Vomiting Physical Exam Vital Signs Date Time Temp Pulse Resp B/P (MAP) Pulse Ox O2 Delivery O2 Flow Rate FiO2 04/17/18 09:40 98.1 96 18 110/74 (86) Nasal Cannula 3.0 04/17/18 09:29 91 Intake and Output 04/17/18 06:59 Intake Total 2390 ml Output Total 1175 ml Balance 1215 ml Intake Oral 690 ml IV Total 1700 ml Output Urine Total 300 ml Stool Total 375 ml Gastric Drainage Total 500 ml # Voids 5 # Bowel Movements 8 General Appearance: Alert, Awake, No Acute Distress Neuro: No Gross deficits Eyes: PERRLA ENT: Normal Neck: No Masses Cardiovascular: Normal Rhythm & Peripheral Pulses (3/6 systoli murmur) Respiratory: No Respiratory Distress GI: Other (mild distension, no tenderness) Musculoskeletal: No Weakness/Pain Extremities: Soft and Non Tender Integumentary: Skin Intact without Lesion / Mass Psych: Alert & Oriented X3 Result Diagram: 04/17/1848 04/17/1848 Assessment and Plan Problems: (1) Nausea & vomiting Status: Acute Assessment & Plan: Improved with NG decompression. Surgery has DC'd NG tube 04.16.18. Will advance diet and likely d/c tomorrow if still tolerating PO. (2) Monoclonal gammopathies Status: Chronic Assessment & Plan: Indolent per report, follows with cancer center. (3) CHF (congestive heart failure) Assessment & Plan: CXR shows small pleural effusions. BNP (297) was lower than his usual. Judicious use of IV fluids. Recent ECHO shows right sided heart failure with severe pulmonary HTN. He is on chronic Adempas 2.5mg PO TID. (4) Chronic kidney disease Status: Chronic Assessment & Plan: Stage 2 per record review, Cr baseline 1.0-1.2 (5) CAD (coronary artery disease) Status: Chronic Assessment & Plan: Resumed Plavix and Crestor; (6) Hypothyroid Status: Chronic Assessment & Plan: On 112mcg daily. (7) Pulmonary hypertension Status: Chronic Assessment & Plan: On chronic treatment as noted above. (8) DVT (deep venous thrombosis) Status: Chronic Assessment & Plan: On chronic Eliquis. (9) Atrial fibrillation/flutter Status: Chronic Assessment & Plan: Resumed chronic carvedilol. Heart Failure Ejection Fraction %: 60 RVSP (mmHg): 82 NYHA Class: II Is Patient on MAHI Inhibitor?: No Is Patient on Beta Jigar?: Yes Exam Sepsis Risk: No Definite Risk SIGALA MADISYN HERNANDEZ DO Apr 17, 2018 12:33
[2018-04-17 12:36] VITALS: BP 114/78
[2018-04-17 17:52] VITALS: BP 113/76
[2018-04-17 19:03] VITALS: BP 119/81
[2018-04-17] MEDS: FINASTERIDE 5 MG TAB PO SCH (20:16)
[2018-04-17] MEDS: ROSUVASTATIN CALCIUM 10 MG TAB PO SCH (20:16)
[2018-04-18] MEDS: LEVOTHYROXINE SOD 0.112 MG TAB PO SCH (05:53)
[2018-04-18 07:55] VITALS: BP 109/87
[2018-04-18] MEDS: RIOCIGUAT 2.5 MG PO SCH ×3 (08:18→20:49)
[2018-04-18] MEDS: PANTOPRAZOLE SOD 40 MG TABEC PO SCH ×2 (08:18→20:48)
[2018-04-18] MEDS: FERROUS SULFATE 325 MG TAB PO SCH (08:18)
[2018-04-18] MEDS: APIXABAN 2.5 MG TABLET PO SCH ×2 (08:18→20:48)
[2018-04-18] MEDS: CLOPIDOGREL BISULFATE 75MG TAB PO SCH (08:18)
[2018-04-18] MEDS: CHOLECALCIFEROL 1000 UNIT TAB PO SCH (08:18)
[2018-04-18] MEDS: CARVEDILOL 6.25 MG TAB PO SCH ×2 (08:18→20:47)
--- NOTE | 2018-04-18 10:31 | Hospitalist Progress Note ---
Subjective Progress Notes Subjective He was admitted with a small bowel obstruction. He reports much improvement abdominal pain this morning. Patient Complains of: Cardiovascular: No: Chest Pain Respiratory: No: Shortness of Breath Physical Exam Vital Signs Date Time Temp Pulse Resp B/P (MAP) Pulse Ox O2 Delivery O2 Flow Rate FiO2 04/18/18 07:55 97.4 82 16 109/87 (94) 93 Room Air 3.0 Intake and Output 04/18/18 00:00 Intake Total 2040 ml Output Total 375 ml Balance 1665 ml Intake Oral 750 ml IV Total 1290 ml Stool Total 375 ml # Voids 6 # Bowel Movements 7 General Appearance: Alert, Awake, No Acute Distress, Afebrile Neuro: No Gross deficits Cardiovascular: Regular Rate and Rhythm Respiratory: No Respiratory Distress, Clear to Auscultation GI: Soft and Non-Tender Psych: Alert & Oriented X3, Appropriate Mood & Affect Result Diagram: 04/17/18 0548 04/18/18 0532 Assessment and Plan Problems: (1) Nausea & vomiting Status: Acute Assessment & Plan: Improved with NG decompression. Surgery has DC'd NG tube 04.16.18. Diet was advanced, patient drank multiple soda's, then had increase in abominal bloating. He diet was decreased to only ice chips last night. We will attempt to advance diet again today and likely d/c tomorrow if tolerating PO. Patient should not drink carbonated beverages, until tolerating PO intake better. (2) Monoclonal gammopathies Status: Chronic Assessment & Plan: Indolent per report, follows with cancer center. (3) CHF (congestive heart failure) Assessment & Plan: CXR shows small pleural effusions. BNP (297) was lower than his usual. Judicious use of IV fluids. Recent ECHO shows right sided heart failure with severe pulmonary HTN. He is on chronic Adempas 2.5mg PO TID. (4) Chronic kidney disease Status: Chronic Assessment & Plan: Stage 2 per record review, Cr baseline 1.0-1.2 (5) CAD (coronary artery disease) Status: Chronic Assessment & Plan: Resumed Plavix and Crestor; (6) Hypothyroid Status: Chronic Assessment & Plan: On 112mcg daily of Levothyroxine. (7) Pulmonary hypertension Status: Chronic Assessment & Plan: On chronic treatment as noted above. (8) DVT (deep venous thrombosis) Status: Chronic Assessment & Plan: On chronic Eliquis. (9) Atrial fibrillation/flutter Status: Chronic Assessment & Plan: Resumed chronic carvedilol. Heart Failure Ejection Fraction %: 60 RVSP (mmHg): 82 NYHA Class: II Is Patient on MAHI Inhibitor?: No Is Patient on Beta Jigar?: Yes Exam Sepsis Risk: No Definite Risk CLEMENCIA AGARWAL 3D MODELER Apr 18, 2018 10:30
--- NOTE | 2018-04-18 13:34 | RADIOLOGY IMAGING REPORT ---
FACILITY: [facility] PATIENT NAME: Meño Arechiga : 1940 MR: [id number] V: [id number] EXAM DATE: ORDERING PHYSICIAN: CLEMENCIA AGARWAL TECHNOLOGIST: [place] [facility] [place]: Meño Arechiga : 1940 Visit/Account:[id number] Date of Sevice: 04/18/2018 Abdomen single view: HISTORY: Abdominal pain, bloating/small bowel obstruction. COMPARISON: 04/15/2018 FINDINGS: Supine view was obtained of the abdomen. NG tube is no longer identified. There is mild d istention of the stomach. Air is present in small bowel throughout the abdomen, small bowel is not d ilated. Colon is decompressed. Surgical clips present in the right upper quadrant. Extensive vascular calcifications noted. Bilateral iliac stents are present. Bones are osteopenic. IMPRESSION: 1. NG tube no longer identified. There is mild gaseous distention of the stomach. 2. No specific findings of small bowel obstruction. If this remains of concern, serial imaging may be considered. Report Dictated By: Trudy Hutton MD at 04/18/2018 1:27 PM Report E-Signed By: Trudy Hutton MD at 04/18/2018 1:29 PM WSN:[id number]
[2018-04-18] MEDS ORDERED: SIMETHICONE 80 MG CHEW CHEW PRN (13:50)
[2018-04-18 15:22] VITALS: BP 91/65
[2018-04-18 19:49] VITALS: BP 126/72
[2018-04-18] MEDS: ROSUVASTATIN CALCIUM 10 MG TAB PO SCH (20:47)
[2018-04-18] MEDS: FINASTERIDE 5 MG TAB PO SCH (20:48)
[2018-04-19] MEDS ORDERED: LEVOTHYROXINE SOD 0.125 MG TAB PO SCH (06:00)
[2018-04-19 06:05] VITALS: BP 133/90
[2018-04-19 06:58] VITALS: BP 136/77
--- NOTE | 2018-04-19 07:56 | General Surgery Progress Note ---
Subjective Progress Notes Subjective Pt had increased bloating after dinner last evening and so I was asked to reevaluate him. KUB yesterday showed a distended stomach but o/w looked pretty good. Repeat KUB this morning shows some gas in small bowel but stomach no longer distended. Pt feels better this morning and he's passing flatus and stool. He's hungry and wants to eat. Every time his diet is advanced he gets bloated. Physical Exam Vital Signs Date Time Temp Pulse Resp B/P (MAP) Pulse Ox O2 Delivery O2 Flow Rate FiO2 04/19/18 06:58 97.5 80 24 136/77 (96) 92 3.0 04/19/18 06:05 Nasal Cannula Intake and Output 04/19/18 06:59 Intake Total 1691 ml Balance 1691 ml Intake Oral 1691 ml # Voids 3 # Bowel Movements 4 General Appearance: Alert, Awake, No Acute Distress, Afebrile GI: Soft and Non-Tender (Mildly distended this morning but benign exam) Extremities: Warm, Perfused Result Diagram: 04/17/18 0548 04/18/18 0532 Assessment and Plan Problems: (1) Ileus Status: Acute Assessment & Plan: 04/13/2018: Meño had SBFT done two days ago that showed no obstruction. Abdomen is distended, but soft without significant tenderness. WBC down to 11 K. My impression is that this represents ileus. He does have a history of hypothyroidism but admits to not routinely taking his levothyroxin. He did take it last night. Agree with plan of NG decompression and IV hydration. Patient being admitted to Hospitalist service for further work up to see if we can determine the etiology of his ileus. Surgery will continue to follow closely during his admission. 04/14/2018: Abdomen much less distended after NG suction. No significant tenderness. WBC down to 9K. Will continue NG suction and IVF's, will get F/U abdomen radiographs in am. 04/15/2018: Abdomen less distended, soft, and benign this am. Ileus persists, so cont NGT and bowel rest. Int Med team to correct metabolic and electrolyte abnormalities. 04/16/2018: abdomen remains benign on exam with improved bowel function. DC NGT this am and continue NPO except meds with sips. Consider clear liquids this evening if continues to pass flatus. 04/17/2018: ileus resolved, ADAT. Would recommend an additional overnight observation since he was re-admitted this time with similar s/s so quickly from prior DC. Discussed with Int med team. 04/19/18: Still having GI issues. KUB doesn't look bad, still likely with i leus, possible poor gastric motility based on description of symptoms. Recommend making him NPO, place a PICC line, start TPN, which will provide nutrition while we go SLOWLY with advancing his diet and severely restrict intake volume. I would not advance diet until abdominal distention completely resolves. (2) Nausea & vomiting Status: Acute Assessment & Plan: 04/13/2018: Meño had SBFT done two days ago that showed no obstruction. Abdomen is distended, but soft without significant tenderness. WBC down to 11 K. My impression is that this represents ileus. He does have a history of hypothyroidism but admits to not routinely taking his levothyroxin. He did take it last night. Agree with plan of NG decompression and IV hydration. Patient being admitted to Hospitalist service for further work up to see if we can determine the etiology of his ileus. Surgery will continue to follow closely during his admission. 04/14/2018: Abdomen much less distended after NG suction. No significant tenderness. WBC down to 9K. Will continue NG suction and IVF's, will get F/U abdomen radiographs in am. 04/15/2018: Abdomen less distended, soft, and benign this am. Ileus persists, so cont NGT and bowel rest. Int Med team to correct metabolic and electrolyte abnormalities. 04/16/2018: abdomen remains benign on exam with improved bowel function. DC NGT this am and continue NPO except meds with sips. Consider clear liquids this evening if continues to pass flatus. 04/17/2018: ileus resolved, ADAT. Would recommend an additional overnight observation since he was re-admitted this time with similar s/s so quickly from prior DC. Discussed with Int med team. 04/19/18: Still having GI issues. KUB doesn't look bad, still likely with ileus, possible poor gastric motility based on description of symptoms. Recommend making him NPO, place a PICC line, start TPN, which will provide nutrition while we go SLOWLY with advancing his diet and severely restrict intake volume. I would not advance diet until abdominal distention completely resolves. Condition Stable. Time Spent: < 30 min Exam Sepsis Risk: No Definite Risk Problem Qualifiers (1) Nausea & vomiting: Vomiting type: unspecified Vomiting Intractability: unspecified Qualified Codes: R11.2 - Nausea with vomiting, unspecified NAN VILLANUEVA MD Apr 19, 2018 07:56
--- NOTE | 2018-04-19 08:01 | RADIOLOGY IMAGING REPORT ---
FACILITY: [facility] - [place] PATIENT NAME: Meño Arechiga : 1940 MR: [id number] V: [id number] EXAM DATE: ORDERING PHYSICIAN: NAN CORTES TECHNOLOGIST: Location: [facility] Patient: Meño Arechiga : 1940 Visit/Account:[id number] Date of Sevice: 04/19/2018 Abdomen: Indication: Distention and bloating. Technique: A single supine film was obtained. Comparison: 04/18/2018 Findings: The intestinal gas pattern is nonspecific. There are no signs of obstruction or focal dilat ation. The skeletal and soft tissue structures appear stable. IMPRESSION: No evidence of obstruction or focal dilatation. Report Dictated By: Trip Plaza MD at 04/19/2018 7:55 AM Report E-Signed By: Trip Plaza MD at 04/19/2018 7:57 AM WSN:[id number]
[2018-04-19] MEDS: RIOCIGUAT 2.5 MG PO SCH ×3 (08:57→20:36)
[2018-04-19] MEDS: LEVOTHYROXINE SOD 100 MCG VIAL IVP SCH (09:46)
--- NOTE | 2018-04-19 10:23 | Hospitalist Progress Note ---
Subjective Progress Notes Subjective We tried to advance patient's diet yesterday, patient had complaints of increased abdominal bloating and cramping. He was made NPO again last night. He has no complaints this morning, and states he feels better. He is hungry. Consulted surgery for patient again. KUB completed yesterday and again this morning, showing increased gas pattern. Patient Complains of: Cardiovascular: No: Chest Pain Respiratory: No: Shortness of Breath Physical Exam Vital Signs Date Time Temp Pulse Resp B/P (MAP) Pulse Ox O2 Delivery O2 Flow Rate FiO2 04/19/18 06:58 97.5 80 24 136/77 (96) 92 3.0 04/19/18 06:05 Nasal Cannula Intake and Output 04/18/18 23:59 Intake Total 1691 ml Balance 1691 ml Intake Oral 1691 ml # Voids 2 # Bowel Movements 3 General Appearance: Alert, Awake, No Acute Distress, Afebrile Neuro: No Gross deficits Cardiovascular: Regular Rate and Rhythm Respiratory: No Respiratory Distress, Clear to Auscultation GI: Other (abdomen distended, soft upon palpation, passing gas) Psych: Alert & Oriented X3, Appropriate Mood & Affect Result Diagram: 04/17/18 0548 04/18/18 0532 Assessment and Plan Problems: (1) Nausea & vomiting Status: Acute Assessment & Plan: Improved with NG decompression. Surgery has DC'd NG tube 04.16.18. Diet was advanced 04/17, patient drank multiple soda's, then had increase in abdominal bloating. He diet was decreased to only ice chips. Attempted diet advance again 04/18, with further abdominal bloating. Surgery recommend TPN with slow advance of diet. PICC ordered, but unable to place until tomorrow in Radiology. He will get PPN today, then advance to TPN tomorrow. (2) Monoclonal gammopathies Status: Chronic Assessment & Plan: Indolent per report, follows with cancer center. (3) CHF (congestive heart failure) Assessment & Plan: CXR shows small pleural effusions. BNP (297) was lower than his usual. Judicious use of IV fluids. Recent ECHO shows right sided heart failure with severe pulmonary HTN. He is on chronic Adempas 2.5mg PO TID. (4) Chronic kidney disease Status: Chronic Assessment & Plan: Stage 2 per record review, Cr baseline 1.0-1.2 (5) CAD (coronary artery disease) Status: Chronic Assessment & Plan: Resumed Plavix and Crestor; (6) Hypothyroid Status: Chronic Assessment & Plan: He was on 112mcg daily of Levothyroxine, but TSH was 10.10. Levothyroxine was increased to 125mcg daily. Recommend recheck of TSH in six weeks. (7) Pulmonary hypertension Status: Chronic Assessment & Plan: On chronic treatment as noted above. (8) DVT (deep venous thrombosis) Status: Chronic Assessment & Plan: On chronic Eliquis. (9) Atrial fibrillation/flutter Status: Chronic Assessment & Plan: Resumed chronic carvedilol. Heart Failure Ejection Fraction %: 60 RVSP (mmHg): 82 NYHA Class: II Is Patient on MAHI Inhibitor?: No Is Patient on Beta Jigar?: Yes Exam Sepsis Risk: No Definite Risk Problem Qualifiers (1) Nausea & vomiting: Vomiting type: unspecified Vomiting Intractability: unspecified Qualified Codes: R11.2 - Nausea with vomiting, unspecified CLEMENCIA AGARWAL OPTO MECHANICAL TECHNICIAN Apr 19, 2018 10:23
[2018-04-19] MEDS: 1: MULTIVITAMINS(*) 10 ML VIAL 10 ML in AMINO ACID/GLYCER/ELECT 3% INF 1,000 ML 2: AMIN IV SCH ×2 (10:38→17:50)
--- NOTE | 2018-04-19 12:15 | Medical Nutrition Therapy ---
Nutrition Anthropometrics Height (Inches): 66.00 Height (Calculated Centimeters: 167.785787 Weight (Pounds): 150 Weight (Calculated Kilograms): 68.039 BMI: 25.3 Christiano Nutrition Score: Probably Inadequate Christiano Nutrition Risk Score: 20 Dietary Referral Nutrition Risk Factors: Nutrition Risk Comment: NG for suction Physical Findings Physical Appearance: WNR Skin Appearance Skin Appearance: Edema Edema Location Modifier: Both Edema Location: Foot Type of Edema: Degree of Edema: Gastrointestinal Symptoms GI Symtoms: Change in Bowel Pattern Tube Present: NG Bowel Sounds: Recent Bowel Pattern: Stool Characteristics: Nutritional Diagnosis Nutritional Risk Acuity 1: TPN/PPN, GI Obstruction Nutritional Risk Acuity 2: CHF w/Complication, Chronic Renal Failure Nutritional Risk Acuity 3: Nausea Past Medical History: Hx of CHF, CKD-2, DVT, CAD, hypothyroid Nutritional Acuity: 1-High Nutrition Diagnosis: Increased Nutrient Needs Nutrition Etiology: Physiological Causes Nutrition Problem/Etiology/Sym: AEB low alb 2.6, Ca 8.2 Energy Requirement: 1750 (M-SJ) Protein Requirement: 80 (71kg* 1.1) Fluid Requirement: 1750 (1ml/kcal) Diet Type: NPO/Ice Chips Only Nutrition Intervention: Nutrition support, Incr diet as tolerated Nutritional Support Current Enteral / Parental: PPN Rate: 125ml/hr Current Calories: 735 Current Protein: 87 Current Lipids Calories: 500 Total Current Calories: 1285 Recommended Enteral / Parental: TPN Recommended Goal Rate: 75ml/hr Recommended Duration: 24 (hours) Recommended Calories: 1584 Recommended Protein: 90 Recommended Lipids Calories: 500 Total Recommended Calories: 2084 Nutrition Monitoring & Eval Nutrition Goals: Eat 75-100% Meal, Drink > 1500 cc/day RD Patient Assessment Time: [address] Assessment Type: RD Re-Assessment Patient Nutrition Acuity: 1-High Follow Up Date: Apr 21, 2018 Nutritional Comment: 04/14 Pt discharged on . after evaluatin of SBO. Pt admitted .8 for SBO with symptoms of n/v and abd pain. Pt reported going home on a clear liq diet, and eating steak the follwing day. Pt has hx of CAD, CHF, CDK-2, DVT, and hypothyroid. Pt NPO and on NG tube for suction. Pt has 60% ejection fraction, BNP 297. Pt has low CA of 8.2, Mg of 1.5, and Alb at 2.6. TB 04/16/18 Pt improving with NG removed this AM and diet progression to Clear liquids. No reports of Clear liquid intake at present. Alb 2.9. Encourage intake. -DRT 04/19 Pt moved back to NPO/Ice chips. Will start PPN today at 125ml/hr meeting 73% kcal, 108% protein needs. Planned initiation for TPN tomorrow, recommend 75ml/hr + lipids. This will provide 2085 kcals and 90g protein. Pt's stomach is distended but reports flatus with no c/o n/v. Alb low at 2.5, will follow once nutrition support starts. TB JEROD HAWLEY Apr 19, 2018 08:28
[2018-04-19] MEDS: METOPROLOL TART 5 MG/5 ML VIAL IVP SCH ×2 (12:43→17:52)
[2018-04-19 12:52] VITALS: BP 155/78
[2018-04-19] MEDS: FAT EMULSION 20% 250 ML BAG 250 ML IVPB SCH (16:36)
[2018-04-19 16:41] VITALS: BP 139/69
[2018-04-19 17:59] VITALS: BP 132/89
[2018-04-19 22:11] VITALS: BP 139/82
[2018-04-20] MEDS: METOPROLOL TART 5 MG/5 ML VIAL IVP SCH ×5 (00:34→23:28)
[2018-04-20] MEDS: 1: MULTIVITAMINS(*) 10 ML VIAL 10 ML in AMINO ACID/GLYCER/ELECT 3% INF 1,000 ML 2: AMIN IV SCH (00:49)
[2018-04-20 06:10] VITALS: BP 151/85
--- NOTE | 2018-04-20 07:22 | General Surgery Progress Note ---
Subjective Progress Notes Subjective No complaints this morning although is still bloated although "better than yesterday." He still has a good appetite and he is passing flatus and stool. Physical Exam Vital Signs Date Time Temp Pulse Resp B/P (MAP) Pulse Ox O2 Delivery O2 Flow Rate FiO2 04/20/18 06:10 80 20 151/85 (107) 92 Nasal Cannula 3.0 04/19/18 22:11 98.3 Intake and Output 04/20/18 06:59 Output Total 300 ml Balance -300 ml Output Urine Total 300 ml # Voids 5 # Bowel Movements 1 General Appearance: Alert, Awake, No Acute Distress, Afebrile GI: Soft and Non-Tender (Distended and tympanic) Extremities: Warm, Perfused Result Diagram: 04/17/18 0548 04/18/18 0532 Assessment and Plan Problems: (1) Ileus Status: Acute Assessment & Plan: 04/13/2018: Meño had SBFT done two days ago that showed no obstruction. Abdomen is distended, but soft without significant tenderness. WBC down to 11 K. My impression is that this represents ileus. He does have a history of hypothyroidism but admits to not routinely taking his levothyroxin. He did take it last night. Agree with plan of NG decompression and IV hydration. Patient being admitted to Hospitalist service for further work up to see if we can determine the etiology of his ileus. Surgery will continue to follow closely during his admission. 04/14/2018: Abdomen much less distended after NG suction. No significant tende rness. WBC down to 9K. Will continue NG suction and IVF's, will get F/U abdomen radiographs in am. 04/15/2018: Abdomen less distended, soft, and benign this am. Ileus persists, so cont NGT and bowel rest. Int Med team to correct metabolic and electrolyte abnormalities. 04/16/2018: abdomen remains benign on exam with improved bowel function. DC NGT this am and continue NPO except meds with sips. Consider clear liquids this evening if continues to pass flatus. 04/17/2018: ileus resolved, ADAT. Would recommend an additional overnight observation since he was re-admitted this time with similar s/s so quickly from prior DC. Discussed with Int med team. 04/19/18: Still having GI issues. KUB doesn't look bad, still likely with ileus, possible poor gastric motility based on description of symptoms. Recommend making him NPO, place a PICC line, start TPN, which will provide nutrition while we go SLOWLY with advancing his diet and severely restrict intake volume. I would not advance diet until abdominal distention completely resolves. 04/20/18: Still bloated although he feels like he's improving. KUB yesterday is nonspecific, no obvious SBO. I recommend continuing NPO until bloating resolves. PICC line to be placed today so TPN can be restarted. If bloating doesn't improve over the next day or two then would recommend repeating abdominal CT, possibly with PO and IV contrast. I will continue to follow along with you until GI function returns to baseline. (2) Nausea & vomiting Status: Acute Assessment & Plan: 04/13/2018: Meño had SBFT done two days ago that showed no obstruction. Abdomen is distended, but soft without significant tenderness. WBC down to 11 K. My impression is that this represents ileus. He does have a history of hypothyroidism but admits to not routinely taking his levothyroxin. He did take it last night. Agree with plan of NG decompression and IV hydration. Patient being admitted to Hospitalist service for further work up to see if we can determine the etiology of his ileus. Surgery will continue to follow closely during his admission. 04/14/2018: Abdomen much less distended after NG suction. No significant tenderness. WBC down to 9K. Will continue NG suction and IVF's, will get F/U abdomen radiographs in am. 04/15/2018: Abdomen less distended, soft, and benign this am. Ileus persists, so cont NGT and bowel rest. Int Med team to correct metabolic and electrolyte abnormalities. 04/16/2018: abdomen remains benign on exam with improved bowel function. DC NGT this am and continue NPO except meds with sips. Consider clear liquids this evening if continues to pass flatus. 04/17/2018: ileus resolved, ADAT. Would recommend an additional overnight obs ervation since he was re-admitted this time with similar s/s so quickly from prior DC. Discussed with Int med team. 04/19/18: Still having GI issues. KUB doesn't look bad, still likely with ileus, possible poor gastric motility based on description of symptoms. Recommend making him NPO, place a PICC line, start TPN, which will provide nutrition while we go SLOWLY with advancing his diet and severely restrict intake volume. I would not advance diet until abdominal distention completely resolves. Condition Stable. Time Spent: < 30 min Exam Sepsis Risk: No Definite Risk Problem Qualifiers (1) Nausea & vomiting: Vomiting type: unspecified Vomiting Intractability: unspecified Qualified Codes: R11.2 - Nausea with vomiting, unspecified NAN VILLANUEVA MD Apr 20, 2018 07:22
[2018-04-20] MEDS: RIOCIGUAT 2.5 MG PO SCH ×3 (09:12→21:02)
[2018-04-20] MEDS: LEVOTHYROXINE SOD 100 MCG VIAL IVP SCH (09:13)
[2018-04-20 09:47] VITALS: BP 146/93
[2018-04-20] MEDS ORDERED: INS HUM REG* 100 U/ML(ER ONLY) 20 UNIT, MULTIVITAMINS(*) 10 ML VIAL 10 ML, TRACE METALS... IV SCH (09:55)
--- NOTE | 2018-04-20 10:09 | Hospitalist Progress Note ---
Subjective Progress Notes Subjective He denies any abdominal pain this morning. He does appear to be distended still this morning. He has been passing gas and having bowel movements. Patient Complains of: Cardiovascular: No: Chest Pain Respiratory: No: Shortness of Breath Physical Exam Vital Signs Date Time Temp Pulse Resp B/P (MAP) Pulse Ox O2 Delivery O2 Flow Rate FiO2 04/20/18 09:47 98.2 75 22 146/93 (110) 95 Nasal Cannula 3.0 Intake and Output 04/20/18 07:00 Output Total 300 ml Balance -300 ml Output Urine Total 300 ml # Voids 5 # Bowel Movements 1 General Appearance: Alert, Awake, No Acute Distress, Afebrile Neuro: No Gross deficits Cardiovascular: Regular Rate and Rhythm Respiratory: No Respiratory Distress, Clear to Auscultation GI: Soft and Non-Tender, Other (abdomen appears distended, bowel sounds present) Extremities: No Edema Psych: Alert & Oriented X3, Appropriate Mood & Affect Result Diagram: 04/17/18 0548 04/18/18 0532 Assessment and Plan Problems: (1) Nausea & vomiting Status: Acute Assessment & Plan: Improved with NG decompression. Surgery has DC'd NG tube 04.16.18. Diet was advanced 04/17, patient drank multiple soda's, then had increase in abdominal bloating. He diet was decreased to only ice chips. Attempted diet advance again 04/18, with further abdominal bloating. Surgery recommend TPN with slow advance of diet. PICC line placed 04/20 and will advance to TPN today. (2) Monoclonal gammopathies Status: Chronic Assessment & Plan: Indolent per report, follows with cancer center. (3) CHF (congestive heart failure) Assessment & Plan: CXR shows small pleural effusions. BNP (297) was lower than his usual. Judicious use of IV fluids. Recent ECHO shows right sided heart failure with severe pulmonary HTN. He is on chronic Adempas 2.5mg PO TID. (4) Chronic kidney disease Status: Chronic Assessment & Plan: Stage 2 per record review, Cr baseline 1.0-1.2 (5) CAD (coronary artery disease) Status: Chronic Assessment & Plan: He is on chronic treatment with Plavix and Crestor; these are being held during NPO status. (6) Hypothyroid Status: Chronic Assessment & Plan: He was on 112mcg daily of Levothyroxine, but TSH was 10.10. Levothyroxine was increased to 125mcg daily. Recommend recheck of TSH in six weeks. He was switched to IV Levothyroxine during NPO status. (7) Pulmonary hypertension Status: Chronic Assessment & Plan: On chronic treatment as noted above. (8) DVT (deep venous thrombosis) Status: Chronic Assessment & Plan: On chronic Eliquis. On hold secondary to NPO status, he was placed on Lovenox. (9) Atrial fibrillation/flutter Status: Chronic Assessment & Plan: He is on chronic carvedilol. Held during NPO status, he will receive Metoprolol pushes. Heart Failure Ejection Fraction %: 60 RVSP (mmHg): 82 NYHA Class: II Is Patient on MAHI Inhibitor?: No Is Patient on Beta Jigar?: Yes Exam Sepsis Risk: No Definite Risk Problem Qualifiers (1) Nausea & vomiting: Vomiting type: unspecified Vomiting Intractability: unspecified Qualified Codes: R11.2 - Nausea with vomiting, unspecified CLEMENCIA AGARWALP Apr 20, 2018 10:09
[2018-04-20 10:29] LABS: PLATELET COUNT, AUTOMATED 269 K/uL (150-450)
[2018-04-20] MEDS: 1: INS HUM REG* 100 U/ML(ER ONLY) 10 UNIT, MULTIVITAMINS(*) 10 ML VIAL 10 ML, TRACE META IV SCH ×2 (10:33→23:55)
--- NOTE | 2018-04-20 11:03 | RADIOLOGY IMAGING REPORT ---
FACILITY: [facility] PATIENT NAME: Meño Arechiga : 1940 MR: [id number] V: [id number] EXAM DATE: ORDERING PHYSICIAN: CLEMENCIA AGARWAL TECHNOLOGIST: Location: [facility] [place] Patient: Meño Arechiga : 1940 Visit/Account:[id number] Date of Sevice: 04/19/2018 Ultrasound and fluoroscopic guided PICC line placement Indication: TPN DOSE: Air kerma was 2.7 mGy. Procedure: Following an official timeout documenting the patient's name and laterality of the procedu re, the patient was placed supine on the angiography table. Ultrasound was used to evaluate a vein for access and an image of patent left basilic vein was saved to the PACS system. Skin overlying this vein was prepped and draped in the usual sterile fashion. Fol lowing local anesthesia to the skin and subcutaneous tissues a 21-gauge needle was directed into the patent left basilic vein using ultrasound guidance. Upon entry the vein was cannulated with a 0.018 i nch guidewire. Following this the needle exchanged over the guidewire for 5 Congolese peel-away sheath. Through the peel-away sheath and over the guidewire a 5 Congolese power PICC catheter was fluoroscopical ly directed to the cavoatrial junction. A final radiograph was taken to confirm position. Ports were flushed with heparinized saline and a sterile dressing was applied. IMPRESSION: Ultrasound and fluoroscopic guided placement of a 5 Congolese dual lumen 50 cm power PICC ca theter with its tip at the cavoatrial junction. Report Dictated By: Donal Naik MD at 04/20/2018 10:55 AM Report E-Signed By: Donal Naik MD at 04/20/2018 10:59 AM WSN:[email or web address]
--- NOTE | 2018-04-20 11:03 | RADIOLOGY IMAGING REPORT ---
FACILITY: [facility] [place] PATIENT NAME: Meño Arechiga : 1940 MR: [id number] V: [id number] EXAM DATE: ORDERING PHYSICIAN: CLEMENCIA AGARWAL TECHNOLOGIST: Location: [facility] [place] Patient: Meño Arechiga : 1940 Visit/Account:[id number] Date of Sevice: 04/19/2018 Ultrasound and fluoroscopic guided PICC line placement Indication: TPN DOSE: Air kerma was 2.7 mGy. Procedure: Following an official timeout documenting the patient's name and laterality of the procedu re, the patient was placed supine on the angiography table. Ultrasound was used to evaluate a vein for access and an image of patent left basilic vein was saved to the PACS system. Skin overlying this vein was prepped and draped in the usual sterile fashion. Fol lowing local anesthesia to the skin and subcutaneous tissues a 21-gauge needle was directed into the patent left basilic vein using ultrasound guidance. Upon entry the vein was cannulated with a 0.018 i nch guidewire. Following this the needle exchanged over the guidewire for 5 Vietnamese peel-away sheath. Through the peel-away sheath and over the guidewire a 5 Vietnamese power PICC catheter was fluoroscopical ly directed to the cavoatrial junction. A final radiograph was taken to confirm position. Ports were flushed with heparinized saline and a sterile dressing was applied. IMPRESSION: Ultrasound and fluoroscopic guided placement of a 5 Vietnamese dual lumen 50 cm power PICC ca theter with its tip at the cavoatrial junction. Report Dictated By: Donal Naik MD at 04/20/2018 10:55 AM Report E-Signed By: Donal Naik MD at 04/20/2018 10:59 AM WSN:[email or web address]
[2018-04-20 12:07] VITALS: BP 144/86
[2018-04-20 15:10] VITALS: BP 143/65
[2018-04-20] MEDS: FAT EMULSION 20% 250 ML BAG 250 ML IVPB SCH (15:15)
[2018-04-20 18:56] VITALS: BP 151/70
[2018-04-20] MEDS: ENOXAPARIN 100 MG/ML SYR SC SCH (21:01)
[2018-04-20 23:17] VITALS: BP 136/81
[2018-04-21] VITALS (7 sets, daily range): BP systolic 97–153; BP diastolic 58–101
[2018-04-21] MEDS: METOPROLOL TART 5 MG/5 ML VIAL IVP SCH ×3 (06:34→17:29)
--- NOTE | 2018-04-21 06:55 | General Surgery Progress Note ---
Subjective Progress Notes Subjective No complaints this morning. Physical Exam Vital Signs Date Time Temp Pulse Resp B/P (MAP) Pulse Ox O2 Delivery O2 Flow Rate FiO2 04/21/18 03:56 86 24 127/78 (94) 90 Nasal Cannula 3.0 04/20/18 18:56 98.3 Intake and Output 04/21/18 06:59 Intake Total 578 ml Balance 578 ml IV Total 578 ml # Voids 4 # Bowel Movements 3 General Appearance: Alert, Awake, No Acute Distress, Afebrile GI: Soft and Non-Tender (Mildly distended and tympanic) Extremities: Warm, Perfused Result Diagram: 04/20/18 1017 04/20/18 1017 Assessment and Plan Problems: (1) Ileus Status: Acute Assessment & Plan: 04/13/2018: Meño had SBFT done two days ago that showed no obstruction. Abdomen is distended, but soft without significant tenderness. WBC down to 11 K. My impression is that this represents ileus. He does have a history of hypothyroidism but admits to not routinely taking his levothyroxin. He did take it last night. Agree with plan of NG decompression and IV hydra tion. Patient being admitted to Hospitalist service for further work up to see if we can determine the etiology of his ileus. Surgery will continue to follow closely during his admission. 04/14/2018: Abdomen much less distended after NG suction. No significant tenderness. WBC down to 9K. Will continue NG suction and IVF's, will get F/U abdomen radiographs in am. 04/15/2018: Abdomen less distended, soft, and benign this am. Ileus persists, so cont NGT and bowel rest. Int Med team to correct metabolic and electrolyte abnormalities. 04/16/2018: abdomen remains benign on exam with improved bowel function. DC NGT this am and continue NPO except meds with sips. Consider clear liquids this evening if continues to pass flatus. 04/17/2018: ileus resolved, ADAT. Would recommend an additional overnight observation since he was re-admitted this time with similar s/s so quickly from prior DC. Discussed with Int med team. 04/19/18: Still having GI issues. KUB doesn't look bad, still likely with ileus, possible poor gastric motility based on description of symptoms. Recommend making him NPO, place a PICC line, start TPN, which will provide nutrition while we go SLOWLY with advancing his diet and severely restrict intake volume. I would not advance diet until abdominal distention completely resolves. 04/20/18: Still bloated although he feels like he's improving. KUB yesterday is nonspecific, no obvious SBO. I recommend continuing NPO until bloating resolves. PICC line to be placed today so TPN can be restarted. If bloating doesn't improve over the next day or two then would recommend repeating abdominal CT, possibly with PO and IV contrast. I will continue to follow along with you until GI function returns to baseline. 04/21/18: Continued ileus. Recommend continuing bowel rest and TPN. Recommend SLOWLY resuming diet after distension improves further. If still distended tomorrow then will consider CT tomorrow. (2) Nausea & vomiting Status: Acute Assessment & Plan: 04/13/2018: Meño had SBFT done two days ago that showed no obstruction. Abdomen is distended, but soft without significant tenderness. WBC down to 11 K. My impression is that this represents ileus. He does have a history of hypothyroidism but admits to not routinely taking his levothyroxin. He did take it last night. Agree with plan of NG decompression and IV hydration. Patient being admitted to Hospitalist service for further work up to see if we can determine the etiology of his ileus. Surgery will continue to follow closely during his admission. 04/14/2018: Abdomen much less distended after NG suction. No significant tenderness. WBC down to 9K. Will continue NG suction and IVF's, will get F/U abdomen radiographs in am. 04/15/2018: Abdomen less distended, soft, and benign this am. Ileus persists, so cont NGT and bowel rest. Int Med team to correct metabolic and electrolyte abnormalities. 04/16/2018: abdomen remains benign on exam with improved bowel function. DC NGT this am and continue NPO except meds with sips. Consider clear liquids this evening if continues to pass flatus. 04/17/2018: ileus resolved, ADAT. Would recommend an additional overnight observation since he was re-admitted this time with similar s/s so quickly from prior DC. Discussed with Int med team. 04/19/18: Still having GI issues. KUB doesn't look bad, still likely with ileus, possible poor gastric motility based on description of symptoms. Recommend making him NPO, place a PICC line, start TPN, which will provide nutrition while we go SLOWLY with advancing his diet and severely restrict intake volume. I would not advance diet until abdominal distention completely resolves. Condition Stable. Time Spent: < 30 min Exam Sepsis Risk: No Definite Risk Problem Qualifiers (1) Nausea & vomiting: Vomiting type: unspecified Vomiting Intractability: unspecified Qualified Codes: R11.2 - Nausea with vomiting, unspecified NAN VILLANUEVA MD Apr 21, 2018 06:55
[2018-04-21] MEDS: LEVOTHYROXINE SOD 100 MCG VIAL IVP SCH (09:45)
[2018-04-21] MEDS: ENOXAPARIN 100 MG/ML SYR SC SCH ×2 (09:45→20:50)
[2018-04-21] MEDS: FAMOTIDINE 20 MG TAB PO SCH ×2 (09:45→20:49)
[2018-04-21] MEDS: RIOCIGUAT 2.5 MG PO SCH ×3 (09:46→20:49)
--- NOTE | 2018-04-21 10:22 | Hospitalist Progress Note ---
Subjective Progress Notes Subjective He has complaints of a rash to bilateral lower extremities. He reports the rash to be bumpy in appearance, and is very itchy. He states he has previously had a rash before like this prior to coming into the hospital, which was treated with steroid cream with some relief of itching symptoms. Otherwise, he denies abdomi nal pain. Patient Complains of: Cardiovascular: No: Chest Pain Respiratory: No: Shortness of Breath Gastrointestinal: No Nausea, No Vomiting Physical Exam Vital Signs Date Time Temp Pulse Resp B/P (MAP) Pulse Ox O2 Delivery O2 Flow Rate FiO2 04/21/18 07:45 98.2 56 24 135/65 (88) 93 Nasal Cannula 3.0 Intake and Output 04/21/18 07:00 Intake Total 578 ml Balance 578 ml IV Total 578 ml # Voids 4 # Bowel Movements 3 General Appearance: Alert, Awake, No Acute Distress, Afebrile Neuro: No Gross deficits Cardiovascular: Regular Rate and Rhythm Respiratory: No Respiratory Distress, Clear to Auscultation GI: Soft and Non-Tender, Other (abdomen distended, more firm to palpation from yesterdays exam) Extremities: Warm, Perfused; No Edema Integumentary: Other (rash noted to bilateral lower extremities, left greater symptoms than right. Some erythema noted, maculopapular in appearance. ) Psych: Alert & Oriented X3, Appropriate Mood & Affect Result Diagram: 04/20/18 1017 04/20/18 1017 Assessment and Plan Problems: (1) Nausea & vomiting Status: Acute Assessment & Plan: Improved with NG decompression. Surgery has DC'd NG tube 04.16.18. Diet was advanced 04/17, patient drank multiple soda's, then had increase in abdominal bloating. He diet was decreased to only ice chips. Attempted diet advance again 04/18, with further abdominal bloating. Surgery recommend TPN with slow advance of diet. PICC line placed 04/20 and will advance to TPN. (2) Monoclonal gammopathies Status: Chronic Assessment & Plan: Indolent per report, follows with cancer center. (3) CHF (congestive heart failure) Assessment & Plan: CXR shows small pleural effusions. BNP (297) was lower than his usual. Judicious use of IV fluids. Recent ECHO shows right sided heart fail ure with severe pulmonary HTN. He is on chronic Adempas 2.5mg PO TID. (4) Chronic kidney disease Status: Chronic Assessment & Plan: Stage 2 per record review, Cr baseline 1.0-1.2 (5) CAD (coronary artery disease) Status: Chronic Assessment & Plan: He is on chronic treatment with Plavix and Crestor; these are being held during NPO status. (6) Hypothyroid Status: Chronic Assessment & Plan: He was on 112mcg daily of Levothyroxine, but TSH was 10.10. Levothyroxine was increased to 125mcg daily. Recommend recheck of TSH in six weeks. He was switched to IV Levothyroxine during NPO status. (7) Pulmonary hypertension Status: Chronic Assessment & Plan: On chronic treatment as noted above. (8) DVT (deep venous thrombosis) Status: Chronic Assessment & Plan: On chronic Eliquis. On hold secondary to NPO status, he was placed on Lovenox. (9) Atrial fibrillation/flutter Status: Chronic Assessment & Plan: He is on chronic carvedilol. Held during NPO status, he will receive Metoprolol pushes. (10) Dermatitis Assessment & Plan: He has a rash present to bilateral lower extremities. He will be placed on Triamcinolone. Heart Failure Ejection Fraction %: 60 RVSP (mmHg): 82 NYHA Class: II Is Patient on MAHI Inhibitor?: No Is Patient on Beta Jigar?: Yes Exam Sepsis Risk: No Definite Risk Problem Qualifiers (1) Nausea & vomiting: Vomiting type: unspecified Vomiting Intractability: unspecified Qualified Codes: R11.2 - Nausea with vomiting, unspecified CLEMENCIA AGARWAL COLOR LABORATORY TECHNICIAN Apr 21, 2018 10:22
[2018-04-21] MEDS: TRIAMCINOLONE ACE 0.1% CR 15GM TP SCH ×2 (11:28→20:51)
[2018-04-21] MEDS: 1: INS HUM REG* 100 U/ML(ER ONLY) 10 UNIT, MULTIVITAMINS(*) 10 ML VIAL 10 ML, TRACE META IV SCH (13:32)
--- NOTE | 2018-04-21 13:48 | Medical Nutrition Therapy ---
Nutrition Anthropometrics Height (Inches): 66.00 Height (Calculated Centimeters: 167.605583 Weight (Pounds): 149 Weight (Calculated Kilograms): 67.840 BMI: 25.3 Christiano Nutrition Score: Very Poor Christiano Nutrition Risk Score: 19 Dietary Referral Nutrition Risk Factors: Nutrition Risk Comment: NG for suction Physical Findings Physical Appearance: WNR Skin Appearance Skin Appearance: Edema Edema Location Modifier: Both Edema Location: Foot Type of Edema: Degree of Edema: Gastrointestinal Symptoms GI Symtoms: Bloating, Change in Bowel Pattern Tube Present: Bowel Sounds: Recent Bowel Pattern: Stool Characteristics: Nutritional Diagnosis Nutritional Risk Acuity 1: TPN/PPN, GI Obstruction Nutritional Risk Acuity 2: CHF w/Complication, Chronic Renal Failure Nutritional Risk Acuity 3: Nausea Past Medical History: Hx of CHF, CKD-2, DVT, CAD, hypothyroid Nutritional Acuity: 1-High Nutrition Diagnosis: Increased Nutrient Needs Nutrition Etiology: Physiological Causes Nutrition Problem/Etiology/Sym: AEB low alb 2.6, Ca 8.2 Energy Requirement: 1750 (M-SJ) Protein Requirement: 80 (71kg* 1.1) Fluid Requirement: 1750 (1ml/kcal) Diet Type: NPO/Ice Chips Only Nutrition Intervention: Nutrition support, Incr diet as tolerated Nutritional Support Current Enteral / Parental: TPN Rate: 75ml/hr Current Calories: 1584 Current Protein: 90 Current Lipids Calories: 500 Total Current Calories: 2084 Nutrition Monitoring & Eval Nutrition Goals: Eat 75-100% Meal, Drink > 1500 cc/day RD Patient Assessment Time: [address] Assessment Type: RD Re-Assessment Patient Nutrition Acuity: 1-High Follow Up Date: Apr 21, 2018 Nutritional Comment: 04/14 Pt discharged on . after evaluatin of SBO. Pt admitted .8 for SBO with symptoms of n/v and abd pain. Pt reported going home on a clear liq diet, and eating steak the follwing day. Pt has hx of CAD, CHF, CDK-2, DVT, and hypothyroid. Pt NPO and on NG tube for suction. Pt has 60% ejection fraction, BNP 297. Pt has low CA of 8.2, Mg of 1.5, and Alb at 2.6. TB 04/16/18 Pt improving with NG removed this AM and diet progression to Clear liquids. No reports of Clear liquid intake at present. Alb 2.9. Encourage intake. -DRT 04/19 Pt moved back to NPO/Ice chips. Will start PPN today at 125ml/hr meeting 73% kcal, 108% protein needs. Planned initiation for TPN tomorrow, recommend 75ml/hr + lipids. This will provide 2085 kcals and 90g protein. Pt's stomach is distended but reports flatus with no c/o n/v. Alb low at 2.5, will follow once nutrition support starts. TB 04/21 Pt NPO + TPN + lipids. Pt's kcal and protein needs are being met. Alb is up at at 3.2 from 2.5. Will cont to follow pt's progress and adherence to TPN. JEROD BISWAS Apr 21, 2018 10:19
[2018-04-21] MEDS: FAT EMULSION 20% 250 ML BAG 250 ML IVPB SCH (15:33)
[2018-04-21] MEDS: HYPROMELLOSE 0.4% LUB 15ML BTL OU PRN (17:32)
[2018-04-22] MEDS: METOPROLOL TART 5 MG/5 ML VIAL IVP SCH ×4 (00:47→17:33)
[2018-04-22] MEDS: 1: INS HUM REG* 100 U/ML(ER ONLY) 10 UNIT, MULTIVITAMINS(*) 10 ML VIAL 10 ML, TRACE META IV SCH ×2 (03:28→15:57)
[2018-04-22 05:55] VITALS: BP 122/57
[2018-04-22 07:44] VITALS: BP 142/74
--- NOTE | 2018-04-22 08:03 | General Surgery Progress Note ---
Subjective Progress Notes Subjective Feels distended, no pain. No N/V. Passing flatus and stool. Physical Exam Vital Signs Date Time Temp Pulse Resp B/P (MAP) Pulse Ox O2 Delivery O2 Flow Rate FiO2 04/22/18 07:50 94 Nasal Cannula 3.0 04/22/18 07:44 98.1 93 18 142/74 (96) Intake and Output 04/22/18 07:00 Intake Total 1199 ml Balance 1199 ml IV Total 1199 ml # Voids 5 # Bowel Movements 1 General Appearance: Alert, Awake, No Acute Distress, Afebrile GI: Soft and Non-Tender (Distended and tympanic.) Extremities: Warm, Perfused Result Diagram: 04/20/18 1017 04/20/18 1017 Assessment and Plan Problems: (1) Ileus Status: Acute Assessment & Plan: 04/13/2018: Meño had SBFT done two days ago that showed no obstruction. Abdomen is distended, but soft without significant tenderness. WBC down to 11 K. My impression is that this represents ileus. He does have a history of hypothyroidism but admits to not routinely taking his levothyroxin. He did take it last night. Agree with plan of NG decompression and IV hydration. Patient being admitted to Hospitalist service for further work up to see if we can determine the etiology of his ileus. Surgery will continue to follow closely during his admission. 04/14/2018: Abdomen much less distended after NG suction. No significant tend erness. WBC down to 9K. Will continue NG suction and IVF's, will get F/U abdomen radiographs in am. 04/15/2018: Abdomen less distended, soft, and benign this am. Ileus persists, so cont NGT and bowel rest. Int Med team to correct metabolic and electrolyte abnormalities. 04/16/2018: abdomen remains benign on exam with improved bowel function. DC NGT this am and continue NPO except meds with sips. Consider clear liquids this evening if continues to pass flatus. 04/17/2018: ileus resolved, ADAT. Would recommend an additional overnight observation since he was re-admitted this time with similar s/s so quickly from prior DC. Discussed with Int med team. 04/19/18: Still having GI issues. KUB doesn't look bad, still likely with ileus, possible poor gastric motility based on description of symptoms. Recommend making him NPO, place a PICC line, start TPN, which will provide nutrition while we go SLOWLY with advancing his diet and severely restrict intake volume. I would not advance diet until abdominal distention completely resolves. 04/20/18: Still bloated although he feels like he's improving. KUB yesterday is nonspecific, no obvious SBO. I recommend continuing NPO until bloating resolves. PICC line to be placed today so TPN can be restarted. If bloating doesn't improve over the next day or two then would recommend repeating abdominal CT, possibly with PO and IV contrast. I will continue to follow along with you until GI function returns to baseline. 04/21/18: Continued ileus. Recommend continuing bowel rest and TPN. Recommend SLOWLY resuming diet after distension improves further. If still distended tomorrow then will consider CT tomorrow. 04/22/18: Continued ileus vs SBO. Will get CT Abd/pelvis with PO and IV contrast today. Continue bowel rest and TPN. Will await the CT before deciding on further management. (2) Nausea & vomiting Status: Acute Assessment & Plan: 04/13/2018: Meño had SBFT done two days ago that showed no obstruction. Abdomen is distended, but soft without significant tenderness. WBC down to 11 K. My impression is that this represents ileus. He does have a history of hypothyroidism but admits to not routinely taking his levothyroxin. He did take it last night. Agree with plan of NG decompression and IV hydration. Patient being admitted to Hospitalist service for further work up to see if we can determine the etiology of his ileus. Surgery will continue to follow closely during his admission. 04/14/2018: Abdomen much less distended after NG suction. No significant tenderness. WBC down to 9K. Will continue NG suction and IVF's, will get F/U abdomen radiographs in am. 04/15/2018: Abdomen less distended, soft, and benign this am. Ileus persists, so cont NGT and bowel rest. Int Med team to correct metabolic and electrolyte abnormalities. 04/16/2018: abdomen remains benign on exam with improved bowel function. DC NGT this am and continue NPO except meds with sips. Consider clear liquids this evening if continues to pass flatus. 04/17/2018: ileus resolved, ADAT. Would recommend an additional overnight observation since he was re-admitted this time with similar s/s so quickly from prior DC. Discussed with Int med team. 04/19/18: Still having GI issues. KUB doesn't look bad, still likely with ileus, possible poor gastric motility based on description of symptoms. Recommend making him NPO, place a PICC line, start TPN, which will provide nutrition while we go SLOWLY with advancing his diet and severely restrict intak e volume. I would not advance diet until abdominal distention completely resolves. Condition STable. Time Spent: < 30 min Exam Sepsis Risk: No Definite Risk Problem Qualifiers (1) Nausea & vomiting: Vomiting type: unspecified Vomiting Intractability: unspecified Qualified Codes: R11.2 - Nausea with vomiting, unspecified NAN VILLANUEVA MD Apr 22, 2018 08:03
[2018-04-22] MEDS: LEVOTHYROXINE SOD 100 MCG VIAL IVP SCH (08:32)
[2018-04-22] MEDS: ENOXAPARIN 100 MG/ML SYR SC SCH ×2 (08:33→21:00)
[2018-04-22] MEDS: RIOCIGUAT 2.5 MG PO SCH ×3 (08:33→21:01)
[2018-04-22] MEDS: TRIAMCINOLONE ACE 0.1% CR 15GM TP SCH ×2 (08:34→21:00)
[2018-04-22] MEDS: FAMOTIDINE 20 MG TAB PO SCH ×2 (08:37→21:00)
[2018-04-22] MEDS ORDERED: DIATRIZOATE MEGL/DIATRIZOA SOD 367 MG/ML SOLN ONE (09:01)
--- NOTE | 2018-04-22 10:04 | Hospitalist Progress Note ---
Subjective Progress Notes Subjective He has complaints of increased SOB this morning. He feels like the SOB has gotten better since awakening. Denies chest pain. He also feels his abdomen is more distended today. Patient Complains of: Cardiovascular: No: Chest Pain Respiratory: Shortness of Breath Gastrointestinal: No Nausea Physical Exam Vital Signs Date Time Temp Pulse Resp B/P (MAP) Pulse Ox O2 Delivery O2 Flow Rate FiO2 04/22/18 07:50 94 Nasal Cannula 3.0 04/22/18 07:44 98.1 93 18 142/74 (96) Intake and Output 04/22/18 06:59 Intake Total 1199 ml Balance 1199 ml IV Total 1199 ml # Voids 5 # Bowel Movements 1 General Appearance: Alert, Awake, No Acute Distress, Afebrile Neuro: No Gross deficits Cardiovascular: Regular Rate and Rhythm Respiratory: No Respiratory Distress, Other (crackles noted to bilateral bases) GI: Other (non tender abdomen, distention present, active bowel sounds) Extremities: Warm, Perfused; No Edema Psych: Alert & Oriented X3, Appropriate Mood & Affect Result Diagram: 04/20/18 1017 04/20/18 1017 Assessment and Plan Problems: (1) Nausea & vomiting Status: Acute Assessment & Plan: Improved with NG decompression. Surgery has DC'd NG tube 04.16.18. Diet was advanced 04/17, patient drank multiple soda's, then had increase in abdominal bloating. He diet was decreased to only ice chips. At tempted diet advance again 04/18, with further abdominal bloating. Surgery recommend TPN with slow advance of diet. PICC line placed 04/20 and will advance to TPN. Per surgery, CT to be obtained today. (2) Monoclonal gammopathies Status: Chronic Assessment & Plan: Indolent per report, follows with cancer center. (3) CHF (congestive heart failure) Assessment & Plan: CXR shows small pleural effusions. BNP (297) was lower than his usual. Judicious use of IV fluids. Recent ECHO shows right sided heart failure with severe pulmonary HTN. He is on chronic Adempas 2.5mg PO TID. He does have increased SOB, he will get chest x-ray this morning. (4) Chronic kidney disease Status: Chronic Assessment & Plan: Stage 2 per record review, Cr baseline 1.0-1.2 (5) CAD (coronary artery disease) Status: Chronic Assessment & Plan: He is on chronic treatment with Plavix and Crestor; these are being held during NPO status. (6) Hypothyroid Status: Chronic Assessment & Plan: He was on 112mcg daily of Levothyroxine, but TSH was 10.10. Levothyroxine was increased to 125mcg daily. Recommend recheck of TSH in six weeks. He was switched to IV Levothyroxine during NPO status. (7) Pulmonary hypertension Status: Chronic Assessment & Plan: On chronic treatment as noted above. (8) DVT (deep venous thrombosis) Status: Chronic Assessment & Plan: On chronic Eliquis. On hold secondary to NPO status, he was placed on Lovenox. (9) Atrial fibrillation/flutter Status: Chronic Assessment & Plan: He is on chronic carvedilol. Held during NPO status, he will receive Metoprolol pushes. (10) Dermatitis Assessment & Plan: He has a rash present to bilateral lower extremities. He will be placed on Triamcinolone. Heart Failure Ejection Fraction %: 60 RVSP (mmHg): 82 NYHA Class: II Is Patient on MAHI Inhibitor?: No Is Patient on Beta Jigar?: Yes Exam Sepsis Risk: No Definite Risk Problem Qualifiers (1) Nausea & vomiting: Vomiting type: unspecified Vomiting Intractability: unspecified Qualified Codes: R11.2 - Nausea with vomiting, unspecified CLEMENCIA AGARWAL [facility] Apr 22, 2018 10:04
[2018-04-22] MEDS ORDERED: IOPAMIDOL 76% 75 ML INFUS BTL 75 ML ONE (11:30)
[2018-04-22 12:15] VITALS: BP 147/85
--- NOTE | 2018-04-22 12:43 | Medical Nutrition Therapy ---
Nutrition Anthropometrics Height (Inches): 66.00 Height (Calculated Centimeters: 167.949203 Weight (Pounds): 144 Weight (Calculated Kilograms): 65.317 BMI: 25.3 Christiano Nutrition Score: Very Poor Christiano Nutrition Risk Score: 17 Dietary Referral Nutrition Risk Factors: Nutrition Risk Comment: NG for suction Physical Findings Physical Appearance: WNR Skin Appearance Skin Appearance: Edema Edema Location Modifier: Both Edema Location: Foot Type of Edema: Degree of Edema: Gastrointestinal Symptoms GI Symtoms: Change in Bowel Pattern Tube Present: NG Bowel Sounds: Recent Bowel Pattern: Stool Characteristics: Nutritional Diagnosis Nutritional Risk Acuity 1: TPN/PPN, GI Obstruction Nutritional Risk Acuity 2: CHF w/Complication, Chronic Renal Failure Nutritional Risk Acuity 3: Nausea Past Medical History: Hx of CHF, CKD-2, DVT, CAD, hypothyroid Nutritional Acuity: 1-High Nutrition Diagnosis: Increased Nutrient Needs Nutrition Etiology: Physiological Causes Nutrition Problem/Etiology/Sym: AEB low alb 2.6, Ca 8.2 Energy Requirement: 1750 (M-SJ) Protein Requirement: 80 (71kg* 1.1) Fluid Requirement: 1750 (1ml/kcal) Diet Type: NPO/Ice Chips Only Nutrition Intervention: Nutrition support, Incr diet as tolerated Nutritional Support Current Enteral / Parental: TPN Rate: 75ml/hr Current Calories: 1584 Current Protein: 90 Current Lipids Calories: 500 Total Current Calories: 2084 Nutrition Monitoring & Eval Nutrition Goals: Eat 75-100% Meal, Drink > 1500 cc/day RD Patient Assessment Time: [address] Assessment Type: RD Re-Assessment Patient Nutrition Acuity: 1-High Follow Up Date: Apr 25, 2018 Nutritional Comment: 04/14 Pt discharged on . after evaluatin of SBO. Pt admitted 11.8 for SBO with symptoms of n/v and abd pain. Pt reported going home on a clear liq diet, and eating steak the follwing day. Pt has hx of CAD, CHF, CDK-2, DVT, and hypothyroid. Pt NPO and on NG tube for suction. Pt has 60% ejection fraction, BNP 297. Pt has low CA of 8.2, Mg of 1.5, and Alb at 2.6. TB 04/16/18 Pt improving with NG removed this AM and diet progression to Clear liquids. No reports of Clear liquid intake at present. Alb 2.9. Encourage intake. -DRT 04/19 Pt moved back to NPO/Ice chips. Will start PPN today at 125ml/hr meeting 73% kcal, 108% protein needs. Planned initiation for TPN tomorrow, recommend 75ml/hr + lipids. This will provide 2085 kcals and 90g protein. Pt's stomach is distended but reports flatus with no c/o n/v. Alb low at 2.5, will follow once nutrition support starts. TB 04/21 Pt NPO + TPN + lipids. Pt's kcal and protein needs are being met. Alb is up at at 3.2 from 2.5. Will cont to follow pt's progress and adherence to TPN. TB 04/22 Cont'ed TPN and lipids. Stomach feels distended, no pain. Also n/v has subsided. Pt is passing flatus and stool. Cont bowel rest and TPN. TB JEROD HAWELY Apr 22, 2018 12:43
--- NOTE | 2018-04-22 13:21 | RADIOLOGY IMAGING REPORT ---
FACILITY: [facility] PATIENT NAME: Meño Arechiga : 1940 MR: [id number] V: [id number] EXAM DATE: ORDERING PHYSICIAN: CLEMENCIA AGARWAL TECHNOLOGIST: Location: [facility] Patient: Meño Arechiga : 1940 Visit/Account:[id number] Date of Sevice: 04/22/2018 CHEST, 1 view, portable at 0818 hours History: Increased shortness of breath and lung crackles. COMPARISON: 04/13/2018 FINDINGS: Cardiac shadow is moderately enlarged, unchanged. Normal size thoracic aorta is diffusely calcified. Central pulmonary vasculature is distended and redistributed into the upper lung zones. Central airways and interstitium are thick. Lungs are hyperexpanded and clear of consolidation and atelectasis. No significant pleural fluid col lections are pneumothorax. Left arm PICC distal tip is at the atrial caval junction, unchanged. IMPRESSION: 1. Moderate cardiac shadow could be due to cardiomegaly, but a pericardial effusion could be superim posed. 2. Mild CHF. Report Dictated By: Princess Wahl MD at 04/22/2018 1:14 PM Report E-Signed By: Princess Wahl MD at 04/22/2018 1:17 PM WSN:[email or web address]
[2018-04-22] MEDS ORDERED: FUROSEMIDE 20 MG/2 ML VIAL IVP ONE (13:45)
--- NOTE | 2018-04-22 14:22 | RADIOLOGY IMAGING REPORT ---
FACILITY: [facility] PATIENT NAME: Meño Arechiga : 1940 MR: [id number] V: [id number] EXAM DATE: ORDERING PHYSICIAN: NAN VILLANUEVA TECHNOLOGIST: Location: [facility] Patient: Meño Arechiga : 1940 Visit/Account:[id number] Date of Sevice: 04/22/2018 CT abdomen with IV contrast CT pelvis with IV contrast History: Abdominal distention. Nausea and vomiting. COMPARISON STUDIES: CT abdomen and pelvis 04/13/2018. TECHNIQUE: Axial CT images were obtained through the abdomen and pelvis during injection of nonioni c iodinated intravenous contrast. Reformatted coronal and sagittal images were also obtained. Contrast: 75 ml of Isovue-370 IV contrast. One of the following dose optimization techniques was utilized in the performance of this exam: Autom ated exposure control; adjustment of the mA and/or kV according to the patient's size; or use of an i terative reconstruction technique. Specific details can be referenced in the facility's radiology C T exam operational policy. FINDINGS: Chest bases: Moderate sized bilateral dependent pleural effusions have increased. There is a perica rdial effusion. Heart is moderately enlarged. Coronary arteries are severely calcified. Liver: Cirrhotic appearing liver with irregular margins, right lobe atrophy, left and caudate lobe h ypertrophy. The portal vein opacifies completely. Gallbladder and bile ducts: Cholecystectomy. Normal sized bile ducts. Spleen: Splenectomy. Pancreas: negative Adrenal glands: negative Kidneys: Small bilateral benign-appearing renal cysts are unchanged. Pelvic structures: Prostate gland measures 5.5 cm diameter, and enhances heterogeneously. Bladde r wall is diffusely thickened. Bowel and mesenteries: Distal esophagus, gastric cardia, fundus and proximal body is diffusely thick ened. Small bowel distention seen on the prior study has resolved completely. Oral radiopaque contr ast has migrated from stomach to opacify the entire small bowel and colon to the rectum. No signific ant bowel wall thickening is observed. Ascites: Volume of ascites is reduced compared to the previous study. There is edema within the mes entery and in the presacral areas. Vessels: There are abdominal varices. Thick circumferential calcification of the aorta, iliac and f emoral arteries is noted. Musculoskeletal: Advanced degenerative disc change L4-5 and L5-S1. Body wall: Small umbilical hernia contains fat. Lymph node assessment: negative IMPRESSION: 1. Resolution of small bowel obstruction since 04/13/2018. 2. Cirrhotic liver. Findings of portal hypertension include abdominal varices, distended portal vei n, and ascites. 3. Ascites is reduced since 04/13/2018, but bilateral dependent pleural effusions have increased. 4. Pericardial effusion is unchanged. Report Dictated By: Princess Wahl MD at 04/22/2018 1:47 PM Report E-Signed By: Princess Wahl MD at 04/22/2018 2:17 PM WSN:[email or web address]
[2018-04-22 14:24] VITALS: BP 149/78
[2018-04-22] MEDS: FAT EMULSION 20% 250 ML BAG 250 ML IVPB SCH (15:57)
[2018-04-22 21:39] VITALS: BP 122/88
[2018-04-22] MEDS ORDERED: LORazepam 0.5 MG TAB PO ONE (22:10)
[2018-04-22 22:50] VITALS: BP 107/60
[2018-04-23] MEDS: METOPROLOL TART 5 MG/5 ML VIAL IVP SCH ×4 (00:09→17:30)
[2018-04-23 03:36] VITALS: BP 131/87
[2018-04-23] MEDS: 1: INS HUM REG* 100 U/ML(ER ONLY) 10 UNIT, MULTIVITAMINS(*) 10 ML VIAL 10 ML, TRACE META IV SCH ×2 (05:28→19:13)
[2018-04-23 06:15] LABS: PLATELET COUNT, AUTOMATED 220 K/uL (150-450)
[2018-04-23 08:09] VITALS: BP 122/66
--- NOTE | 2018-04-23 08:39 | General Surgery Progress Note ---
Subjective Progress Notes Subjective No complaints this morning. Tolerating clear diet so far. He denies N/V, doesn't feel bloated, no abdominal pain. Physical Exam Vital Signs Date Time Temp Pulse Resp B/P (MAP) Pulse Ox O2 Delivery O2 Flow Rate FiO2 04/23/18 08:14 90 Nasal Cannula 3.0 04/23/18 08:09 98.1 74 18 122/66 (84) Intake and Output 04/23/18 07:00 Intake Total 1925 ml Balance 1925 ml Intake Oral 867 ml IV Total 1058 ml # Voids 11 # Bowel Movements 6 General Appearance: Alert, Awake, No Acute Distress, Afebrile GI: Soft and Non-Tender Extremities: Warm, Perfused Result Diagram: 04/23/18 0504/23/18 05 Assessment and Plan Problems: (1) Ileus Status: Resolved Assessment & Plan: 04/13/2018: Meño had SBFT done two days ago that showed no obstruction. Abdomen is distended, but soft without significant tenderness. WBC down to 11 K. My impression is that this represents ileus. He does have a history of hypothyroidism but admits to not routinely taking his levothyroxin. He did take it last night. Agree with plan of NG decompression and IV hydration. Patient being admitted to Hospitalist service for further work up to see if we can determine the etiology of his ileus. Surgery will continue to follow closely during his admission. 04/14/2018: Abdomen much less distended after NG suction. No significant tenderness. WBC down to 9K. Will continue NG suction and IVF's, will get F/U abdomen radiographs in am. 04/15/2018: Abdomen less distended, soft, and benign this am. Ileus persists, so cont NGT and bowel rest. Int Med team to correct metabolic and electrolyte abnormalities. 04/16/2018: abdomen remains benign on exam with improved bowel function. DC NGT this am and continue NPO except meds with sips. Consider clear liquids this evening if continues to pass flatus. 04/17/2018: ileus resolved, ADAT. Would recommend an additional overnight o bservation since he was re-admitted this time with similar s/s so quickly from prior DC. Discussed with Int med team. 04/19/18: Still having GI issues. KUB doesn't look bad, still likely with ileus, possible poor gastric motility based on description of symptoms. Recommend making him NPO, place a PICC line, start TPN, which will provide nutrition while we go SLOWLY with advancing his diet and severely restrict intake volume. I would not advance diet until abdominal distention completely resolves. 04/20/18: Still bloated although he feels like he's improving. KUB yesterday is nonspecific, no obvious SBO. I recommend continuing NPO until bloating resolves. PICC line to be placed today so TPN can be restarted. If bloating doesn't improve over the next day or two then would recommend repeating abdominal CT, possibly with PO and IV contrast. I will continue to follow along with you until GI function returns to baseline. 04/21/18: Continued ileus. Recommend continuing bowel rest and TPN. Recommend SLOWLY resuming diet after distension improves further. If still distended t omorrow then will consider CT tomorrow. 04/22/18: Continued ileus vs SBO. Will get CT Abd/pelvis with PO and IV contrast today. Continue bowel rest and TPN. Will await the CT before deciding on further management. 04/23/18: CT actually looked good without signs of ileus or SBO. Diet advanced to clears. He's tolerating this so far. Will go slow on advancing his diet. Continue clear diet today and if tolerates will consider soft diet tomorrow. Continue TPN until he's tolerating a regular diet. (2) Nausea & vomiting Status: Resolved Assessment & Plan: 04/13/2018: Meño had SBFT done two days ago that showed no obstruction. Abdomen is distended, but soft without significant tenderness. WBC down to 11 K. My impression is that this represents ileus. He does have a history of hypothyroidism but admits to not routinely taking his levothyroxin. He did take it last night. Agree with plan of NG decompression and IV hydration. Patient being admitted to Hospitalist service for further work up to see if we can determine the etiology of his ileus. Surgery will continue to follow closely during his admission. 04/14/2018: Abdomen much less distended after NG suction. No significant tenderness. WBC down to 9K. Will continue NG suction and IVF's, will get F/U abdomen radiographs in am. 04/15/2018: Abdomen less distended, soft, and benign this am. Ileus persists, so cont NGT and bowel rest. Int Med team to correct metabolic and electrolyte abnormalities. 04/16/2018: abdomen remains benign on exam with improved bowel function. DC NGT this am and continue NPO except meds with sips. Consider clear liquids this evening if continues to pass flatus. 04/17/2018: ileus resolved, ADAT. Would recommend an additional overnight observation since he was re-admitted this time with similar s/s so quickly from prior DC. Discussed with Int med team. 04/19/18: Still having GI issues. KUB doesn't look bad, still likely with ileus, possible poor gastric motility based on description of symptoms. Recommend making him NPO, place a PICC line, start TPN, which will provide nutrition while we go SLOWLY with advancing his diet and severely restrict intake volume. I would not advance diet until abdominal distention completely resolves. Condition Stable. Time Spent: < 30 min Exam Sepsis Risk: No Definite Risk Problem Qualifiers (1) Nausea & vomiting: Vomiting type: unspecified Vomiting Intractability: unspecified Qualified Codes: R11.2 - Nausea with vomiting, unspecified NAN VILLANUEVA MD Apr 23, 2018 08:39
[2018-04-23] MEDS: RIOCIGUAT 2.5 MG PO SCH ×3 (08:58→21:45)
[2018-04-23] MEDS: FAMOTIDINE 20 MG TAB PO SCH ×2 (08:58→21:46)
[2018-04-23] MEDS: ENOXAPARIN 100 MG/ML SYR SC SCH ×2 (08:59→21:46)
[2018-04-23] MEDS: LEVOTHYROXINE SOD 100 MCG VIAL IVP SCH (08:59)
[2018-04-23] MEDS: TRIAMCINOLONE ACE 0.1% CR 15GM TP SCH ×2 (08:59→21:46)
[2018-04-23 11:07] VITALS: BP 121/83
[2018-04-23] MEDS: HYPROMELLOSE 0.4% LUB 15ML BTL OU PRN (13:28)
--- NOTE | 2018-04-23 13:35 | Hospitalist Progress Note ---
Subjective Progress Notes Subjective He reports feeling improved. Appetite is good. Physical Exam Vital Signs Date Time Temp Pulse Resp B/P (MAP) Pulse Ox O2 Delivery O2 Flow Rate FiO2 04/23/18 11:07 98.4 94 20 121/83 (96) 92 Nasal Cannula 3.0 Intake and Output 04/23/18 06:59 Intake Total 1925 ml Balance 1925 ml Intake Oral 867 ml IV Total 1058 ml # Voids 11 # Bowel Movements 6 General Appearance: Alert, Awake Cardiovascular: Regular Rate and Rhythm Respiratory: Clear to Auscultation GI: Soft and Non-Tender Extremities: Warm, Perfused Result Diagram: 04/23/1852204/23/18 05 Assessment and Plan Problems: (1) Nausea & vomiting Status: Resolved Assessment & Plan: Improved with NG decompression - now removed. Diet was advanced 04/17, but the patient drank multiple sodas and had increased abdominal bloating. His diet was cut back to only ice chips. Attempted diet advance again 04/18, with further abdominal bloating. Surgery recommended TPN with slow advance of diet. PICC line was placed 04/[address] of abd/pelvis done yesterday shows resolution of ileus (or obstruction), but cirrhotic changes to liver. (2) CHF (congestive heart failure) Assessment & Plan: CXR shows small pleural effusions. BNP (297) was lower than his usual. Judicious use of IV fluids. Recent ECHO shows right sided heart failure with severe pulmonary HTN. He is on chronic Adempas 2.5mg PO TID. (3) Monoclonal gammopathies Status: Chronic Assessment & Plan: Indolent per report, follows with cancer center. (4) Chronic kidney disease Status: Chronic Assessment & Plan: Stage 2 per record review, Cr baseline 1.0-1.2 (5) CAD (coronary artery disease) Status: Chronic Assessment & Plan: He is on chronic treatment with Plavix and Crestor; these are being held during NPO status. (6) Hypothyroid Status: Chronic Assessment & Plan: He was on 112mcg daily of Levothyroxine, but TSH was 10.10. Levothyroxine was increased to 125mcg daily. Recommend recheck of TSH in six weeks. He was switched to IV Levothyroxine during NPO status. (7) Pulmonary hypertension Status: Chronic Assessment & Plan: On chronic treatment as noted above. (8) DVT (deep venous thrombosis) Status: Chronic Assessment & Plan: On chronic Eliquis. On hold secondary to NPO status, he has been placed on Lovenox. (9) Atrial fibrillation/flutter Status: Chronic Assessment & Plan: He is on chronic carvedilol. Held during NPO status, he is receiving low dose Metoprolol IV. (10) Dermatitis Assessment & Plan: He has a rash present to bilateral lower extremities. He has been placed on Triamcinolone. (11) Cirrhosis of liver Status: Chronic Assessment & Plan: This could potentially be related to his chronic pulmonary HTN with resultant "cardiac cirrhosis". Will check other studies to evaluate for other potential causes. Heart Failure Ejection Fraction %: 60 RVSP (mmHg): 82 NYHA Class: II Is Patient on MAHI Inhibitor?: No Is Patient on Beta Jigar?: Yes Exam Sepsis Risk: No Definite Risk Problem Qualifiers (1) Nausea & vomiting: Vomiting type: unspecified Vomiting Intractability: unspecified Qualified Codes: R11.2 - Nausea with vomiting, unspecified RONDA GARCIA MD Apr 23, 2018 13:35
[2018-04-23 14:50] VITALS: BP 106/46
[2018-04-23] MEDS: FAT EMULSION 20% 250 ML BAG 250 ML IVPB SCH (15:15)
[2018-04-23 21:24] VITALS: BP 147/73
[2018-04-24 00:02] VITALS: BP 149/87
[2018-04-24 03:20] VITALS: BP 147/86
[2018-04-24] MEDS: METOPROLOL TART 5 MG/5 ML VIAL IVP SCH ×2 (05:35)
[2018-04-24 06:56] VITALS: BP 147/82
[2018-04-24 08:04] LABS: PLATELET COUNT, AUTOMATED 289 K/uL (150-450)
--- NOTE | 2018-04-24 08:07 | Hospitalist Progress Note ---
Subjective Progress Notes Subjective He has tolerated clear liquids fairly well. He is having loose stools. Physical Exam Vital Signs Date Time Temp Pulse Resp B/P (MAP) Pulse Ox O2 Delivery O2 Flow Rate FiO2 04/24/18 07:35 93 Nasal Cannula 3.0 04/24/18 06:56 97.6 60 20 147/82 (103) Intake and Output 04/24/18 07:00 Intake Total 1999 ml Output Total 300 ml Balance 1699 ml Intake Oral 810 ml IV Total 1189 ml Stool Total 300 ml # Voids 8 # Bowel Movements 5 General Appearance: Alert, Awake Cardiovascular: Regular Rate and Rhythm, No Edema Respiratory: Clear to Auscultation GI: Other (slightly distended/soft/BS present) Extremities: Warm, Perfused Result Diagram: 04/23/18 0523 04/24/18 0708 Assessment and Plan Problems: (1) Nausea & vomiting Status: Resolved Assessment & Plan: Improved with NG decompression - now removed. Diet was adv anced 04/17, but the patient drank multiple sodas and had increased abdominal bloating. His diet was cut back to only ice chips. Attempted diet advance again 04/18, with further abdominal bloating. Surgery recommended TPN with slow advance of diet. PICC line was placed 04/[address] of abd/pelvis done yesterday shows resolution of ileus (or obstruction), but cirrhotic changes to liver. He seems to be tolerating clear liquids. Consider advancing diet today. (2) CHF (congestive heart failure) Assessment & Plan: CXR shows small pleural effusions. BNP (297) was lower than his usual. Judicious use of IV fluids. Recent ECHO shows right sided heart failure with severe pulmonary HTN. He is on chronic Adempas 2.5mg PO TID. (3) Monoclonal gammopathies Status: Chronic Assessment & Plan: Indolent per report, follows with cancer center. (4) Chronic kidney disease Status: Chronic Assessment & Plan: Stage 2 per record review, Cr baseline 1.0-1.2 (5) CAD (coronary artery disease) Status: Chronic Assessment & Plan: He is on chronic treatment with Plavix and Crestor; these are being held during NPO status. (6) Hypothyroid Status: Chronic Assessment & Plan: He was on 112mcg daily of Levothyroxine, but TSH was 10.10. Levothyroxine was increased to 125mcg daily. Recommend recheck of TSH in six weeks. He was switched to IV Levothyroxine during NPO status. (7) Pulmonary hypertension Status: Chronic Assessment & Plan: On chronic treatment as noted above. (8) DVT (deep venous thrombosis) Status: Chronic Assessment & Plan: On chronic Eliquis. On hold secondary to NPO status, he has been placed on Lovenox. (9) Atrial fibrillation/flutter Status: Chronic Assessment & Plan: He is on chronic carvedilol. Held during NPO status, he is receiving low dose Metoprolol IV. (10) Dermatitis Assessment & Plan: He has a rash present to bilateral lower extremities. He has been placed on Triamcinolone. (11) Cirrhosis of liver Status: Chronic Assessment & Plan: This could potentially be related to his chronic pulmonary HTN with resultant "cardiac cirrhosis". Labs currently pending to screen/evaluate for other potential causes. Heart Failure Ejection Fraction %: 60 RVSP (mmHg): 82 NYHA Class: II Is Patient on MAHI Inhibitor?: No Is Patient on Beta Jigar?: Yes Exam Sepsis Risk: No Definite Risk Problem Qualifiers (1) Nausea & vomiting: Vomiting type: unspecified Vomiting Intractability: unspecified Qualified Codes: R11.2 - Nausea with vomiting, unspecified RONDA GARCIA MD Apr 24, 2018 08:06
[2018-04-24] MEDS: 1: INS HUM REG* 100 U/ML(ER ONLY) 10 UNIT, MULTIVITAMINS(*) 10 ML VIAL 10 ML, TRACE META IV SCH ×2 (09:26→22:05)
[2018-04-24] MEDS: FAMOTIDINE 20 MG TAB PO SCH ×2 (09:26→20:41)
[2018-04-24] MEDS: RIOCIGUAT 2.5 MG PO SCH ×3 (09:27→20:42)
[2018-04-24] MEDS: LEVOTHYROXINE SOD 0.125 MG TAB PO SCH (09:27)
[2018-04-24] MEDS: CARVEDILOL 6.25 MG TAB PO SCH ×2 (09:27→20:41)
[2018-04-24] MEDS: ENOXAPARIN 100 MG/ML SYR SC SCH ×2 (09:27→20:43)
[2018-04-24] MEDS: TRIAMCINOLONE ACE 0.1% CR 15GM TP SCH ×2 (09:27→20:48)
--- NOTE | 2018-04-24 11:07 | General Surgery Progress Note ---
Subjective Progress Notes Subjective No complaints. No N/V or bloating. Passing stool and flatus. No abdominal pain. Physical Exam Vital Signs Date Time Temp Pulse Resp B/P (MAP) Pulse Ox O2 Delivery O2 Flow Rate FiO2 04/24/18 07:35 93 Nasal Cannula 3.0 04/24/18 06:56 97.6 60 20 147/82 (103) Intake and Output 04/24/18 07:00 Intake Total 1999 ml Output Total 300 ml Balance 1699 ml Intake Oral 810 ml IV Total 1189 ml Stool Total 300 ml # Voids 8 # Bowel Movements 5 General Appearance: Alert, Awake, No Acute Distress, Afebrile GI: Soft and Non-Tender Extremities: Warm, Perfused Result Diagram: 04/24/1870704/24/18707 Assessment and Plan Problems: (1) Ileus Status: Resolved Assessment & Plan: 04/13/2018: Meño had SBFT done two days ago that showed no obstruction. Abdomen is distended, but soft without significant tenderness. WBC down to 11 K. My impression is that this represents ileus. He does have a history of hypothyroidism but admits to not routinely taking his levothyroxin. He did take it last night. Agree with plan of NG decompression and IV hydration. Patient being admitted to Hospitalist service for further work up to see if we can determine the etiology of his ileus. Surgery will continue to follow closely during his admission. 04/14/2018: Abdomen much less distended after NG suction. No significant tenderness. WBC down to 9K. Will continue NG suction and IVF's, will get F/U abdomen radiographs in am. 04/15/2018: Abdomen less distended, soft, and benign this am. Ileus persists, so cont NGT and bowel rest. Int Med team to correct metabolic and electrolyte abnormalities. 04/16/2018: abdomen remains benign on exam with improved bowel function. DC NGT this am and continue NPO except meds with sips. Consider clear liquids this evening if continues to pass flatus. 04/17/2018: ileus resolved, ADAT. Would recommend an additional overnight observation since he was re-admitted this time with similar s/s so quickly from prior DC. Discussed with Int med team. 04/19/18: Still having GI issues. KUB doesn't look bad, still likely with ileus, possible poor gastric motility based on description of symptoms. Recommend making him NPO, place a PICC line, start TPN, which will provide nutrition while we go SLOWLY with advancing his diet and severely restrict intake volume. I would not advance diet until abdominal distention completely resolves. 04/20/18: Still bloated although he feels like he's improving. KUB yesterday is nonspecific, no obvious SBO. I recommend continuing NPO until bloating resolves. PICC line to be placed today so TPN can be restarted. If bloating doesn't improve over the next day or two then would recommend repeating abdominal CT, possibly with PO and IV contrast. I will continue to follow along with you until GI function returns to baseline. 04/21/18: Continued ileus. Recommend continuing bowel rest and TPN. Recommend SLOWLY resuming diet after distension improves further. If still distended tomorrow then will consider CT tomorrow. 04/22/18: Continued ileus vs SBO. Will get CT Abd/pelvis with PO and IV contrast today. Continue bowel rest and TPN. Will await the CT before deciding on further management. 04/23/18: CT actually looked good without signs of ileus or SBO. Diet advanced to clears. He's tolerating this so far. Will go slow on advancing his diet. Continue clear diet today and if tolerates will consider soft diet tomorrow. Continue TPN until he's tolerating a regular diet. 04/24/18: Progressing. Continue clears today, if he continues to do well with clears then will plan on GI soft diet tomorrow. Continue TPN until tolerating regular diet. (2) Nausea & vomiting Status: Resolved Assessment & Plan: 04/13/2018: Meño had SBFT done two days ago that showed no obstruction. Abdomen is distended, but soft without significant tenderness. WBC down to 11 K. My impression is that this represents ileus. He does have a history of hypothyroidism but admits to not routinely taking his levothyroxin. He did take it last night. Agree with plan of NG decompression and IV hydration. Patient being admitted to Hospitalist service for further work up to see if we can determine the etiology of his ileus. Surgery will continue to follow closely during his admission. 04/14/2018: Abdomen much less distended after NG suction. No significant tenderness. WBC down to 9K. Will continue NG suction and IVF's, will get F/U abdomen radiographs in am. 04/15/2018: Abdomen less distended, soft, and benign this am. Ileus persists, so cont NGT and bowel rest. Int Med team to correct metabolic and electrolyte abnormalities. 04/16/2018: abdomen remains benign on exam with improved bowel function. DC NGT this am and continue NPO except meds with sips. Consider clear liquids this evening if continues to pass flatus. 04/17/2018: ileus resolved, ADAT. Would recommend an additional overnight observation since he was re-admitted this time with similar s/s so quickly from prior DC. Discussed with Int med team. 04/19/18: Still having GI issues. KUB doesn't look bad, still likely with ileus, possible poor gastric motility based on description of symptoms. Recommend making him NPO, place a PICC line, start TPN, which will provide nutrition while we go SLOWLY with advancing his diet and severely restrict intake volume. I would not advance diet until abdominal distention completely resolves. Condition Stable. Time Spent: < 30 min Exam Sepsis Risk: No Definite Risk Problem Qualifiers (1) Nausea & vomiting: Vomiting type: unspecified Vomiting Intractability: unspecified Qualified Codes: R11.2 - Nausea with vomiting, unspecified NAN VILLANUEVA MD Apr 24, 2018 11:07
[2018-04-24 11:47] VITALS: BP 119/70
[2018-04-24] MEDS: FAT EMULSION 20% 250 ML BAG 250 ML IVPB SCH (15:15)
[2018-04-24 15:18] VITALS: BP 135/71
[2018-04-24 20:04] VITALS: BP 166/78
[2018-04-24] MEDS ORDERED: LORazepam 0.5 MG TAB PO ONE (23:45)
[2018-04-25 02:16] VITALS: BP 157/79
[2018-04-25] MEDS: LEVOTHYROXINE SOD 0.125 MG TAB PO SCH (05:58)
--- NOTE | 2018-04-25 08:10 | General Surgery Progress Note ---
Subjective Progress Notes Subjective No complaints. Tolerating clear diet. No N/V, doesn't feel like he's getting more bloated. Physical Exam Vital Signs Date Time Temp Pulse Resp B/P (MAP) Pulse Ox O2 Delivery O2 Flow Rate FiO2 04/25/18 02:16 101 22 157/79 (105) 89 Nasal Cannula 3.0 04/24/18 20:04 98.1 Intake and Output 04/25/18 07:00 Intake Total 2491 ml Balance 2491 ml Intake Oral 2060 ml IV Total 431 ml # Voids 9 # Bowel Movements 4 General Appearance: Alert, Awake, No Acute Distress, Afebrile GI: Soft and Non-Tender Extremities: Warm, Perfused Result Diagram: 04/24/18 0708 04/24/18707 Assessment and Plan Problems: (1) Ileus Status: Resolved Assessment & Plan: 04/13/2018: Meño had SBFT done two days ago that showed no obstruction. Abdomen is distended, but soft without significant tenderness. WBC down to 11 K. My impression is that this represents ileus. He does have a history of hypothyroidism but admits to not routinely taking his levothyroxin. He did take it last night. Agree with plan of NG decompression and IV hydration. Patient being admitted to Hospitalist service for further work up to see if we can determine the etiology of his ileus. Surgery will continue to follow closely during his admission. 04/14/2018: Abdomen much less distended after NG suction. No significant tenderness. WBC down to 9K. Will continue NG suction and IVF's, will get F/U abdomen radiographs in am. 04/15/2018: Abdomen less distended, soft, and benign this am. Ileus persists, so cont NGT and bowel rest. Int Med team to correct metabolic and electrolyte abnormalities. 04/16/2018: abdomen remains benign on exam with improved bowel function. DC NGT this am and continue NPO except meds with sips. Consider clear liquids this evening if continues to pass flatus. 04/17/2018: ileus resolved, ADAT. Would recommend an additional overnight observation since he was re-admitted this time with similar s/s so quickly from prior DC. Discussed with Int med team. 04/19/18: Still having GI issues. KUB doesn't look bad, still likely with ileus, possible poor gastric motility based on description of symptoms. Recommend making him NPO, place a PICC line, start TPN, which will provide nutrition while we go SLOWLY with advancing his diet and severely restrict inta ke volume. I would not advance diet until abdominal distention completely resolves. 04/20/18: Still bloated although he feels like he's improving. KUB yesterday is nonspecific, no obvious SBO. I recommend continuing NPO until bloating resolves. PICC line to be placed today so TPN can be restarted. If bloating doesn't improve over the next day or two then would recommend repeating abdominal CT, possibly with PO and IV contrast. I will continue to follow along with you until GI function returns to baseline. 04/21/18: Continued ileus. Recommend continuing bowel rest and TPN. Recommend SLOWLY resuming diet after distension improves further. If still distended tomorrow then will consider CT tomorrow. 04/22/18: Continued ileus vs SBO. Will get CT Abd/pelvis with PO and IV contrast today. Continue bowel rest and TPN. Will await the CT before deciding on further management. 04/23/18: CT actually looked good without signs of ileus or SBO. Diet advanced to clears. He's tolerating this so far. Will go slow on advancing his diet. Continue clear diet today and if tolerates will consider soft diet tomorrow. Continue TPN until he's tolerating a regular diet. 04/24/18: Progressing. Continue clears today, if he continues to do well with clears then will plan on GI soft diet tomorrow. Continue TPN until tolerating regular diet. 04/25/18: Doing well. Will try soft diet today, continue TPN until tolerating regular diet. (2) Nausea & vomiting Status: Resolved Assessment & Plan: 04/13/2018: Meño had SBFT done two days ago that showed no obstruction. Abdomen is distended, but soft without significant tenderness. WBC down to 11 K. My impression is that this represents ileus. He does have a history of hypothyroidism but admits to not routinely taking his levothyroxin. He did take it last night. Agree with plan of NG decompression and IV hydration. Patient being admitted to Hospitalist service for further work up to see if we can determine the etiology of his ileus. Surgery will continue to follow closely during his admission. 04/14/2018: Abdomen much less distended after NG suction. No significant tenderness. WBC down to 9K. Will continue NG suction and IVF's, will get F/U abdomen radiographs in am. 04/15/2018: Abdomen less distended, soft, and benign this am. Ileus persists, so cont NGT and bowel rest. Int Med team to correct metabolic and electrolyte abnormalities. 04/16/2018: abdomen remains benign on exam with improved bowel function. DC NGT this am and continue NPO except meds with sips. Consider clear liquids this evening if continues to pass flatus. 04/17/2018: ileus resolved, ADAT. Would recommend an additional overnight observation since he was re-admitted this time with similar s/s so quickly from prior DC. Discussed with Int med team. 04/19/18: Still having GI issues. KUB doesn't look bad, still likely with ileus, possible poor gastric motility based on description of symptoms. Recommend making him NPO, place a PICC line, start TPN, which will provide nutrition while we go SLOWLY with advancing his diet and severely restrict intake volume. I would not advance diet until abdominal distention completely resolves. Condition STable. Time Spent: < 30 min Exam Sepsis Risk: No Definite Risk Problem Qualifiers (1) Nausea & vomiting: Vomiting type: unspecified Vomiting Intractability: unspecified Qualified Codes: R11.2 - Nausea with vomiting, unspecified NAN VILLANUEVA MD Apr 25, 2018 08:10
[2018-04-25 08:36] VITALS: BP 155/88
[2018-04-25] MEDS: TRIAMCINOLONE ACE 0.1% CR 15GM TP SCH ×2 (09:00→20:41)
--- NOTE | 2018-04-25 09:29 | Hospitalist Progress Note ---
Subjective Progress Notes Subjective He has no complaints this morning. He reports he had done well with clear diet. He had no acute events overnight. Patient Complains of: Cardiovascular: No: Chest Pain Respiratory: No: Shortness of Breath Physical Exam Vital Signs Date Time Temp Pulse Resp B/P (MAP) Pulse Ox O2 Delivery O2 Flow Rate FiO2 04/25/18 08:36 97.7 104 24 155/88 (110) 95 Nasal Cannula 4.0 Intake and Output 04/25/18 07:00 Intake Total 2491 ml Balance 2491 ml Intake Oral 2060 ml IV Total 431 ml # Voids 9 # Bowel Movements 4 General Appearance: Alert, Awake, No Acute Distress, Afebrile Neuro: No Gross deficits Cardiovascular: Regular Rate and Rhythm Respiratory: No Respiratory Distress, Clear to Auscultation GI: Soft and Non-Tender Psych: Alert & Oriented X3, Appropriate Mood & Affect Result Diagram: 04/24/18 0708 04/24/18 0708 Assessment and Plan Problems: (1) Nausea & vomiting Status: Resolved Assessment & Plan: Improved with NG decompression - now removed. Diet was advanced 04/17, but the patient drank multiple sodas and had increased abdominal bloating. His diet was cut back to only ice chips. Attempted diet advance again 04/18, with further abdominal bloating. Surgery recommended TPN with slow advance of diet. PICC line was placed 04/[address] of abd/pelvis done 04/22 shows resolution of ileus (or obstruction), but cirrhotic changes to liver. He seems to be tolerating clear liquids. He will advanced his diet today. (2) CHF (congestive heart failure) Assessment & Plan: CXR shows small pleural effusions. BNP (297) was lower than his usual. Judicious use of IV fluids. Recent ECHO shows right sided heart failure with severe pulmonary HTN. He is on chronic Adempas 2.5mg PO TID. (3) Monoclonal gammopathies Status: Chronic Assessment & Plan: Indolent per report, follows with cancer center. (4) Chronic kidney disease Status: Chronic Assessment & Plan: Stage 2 per record review, Cr baseline 1.0-1.2 (5) CAD (coronary artery disease) Status: Chronic Assessment & Plan: He is on chronic treatment with Plavix and Crestor. (6) Hypothyroid Status: Chronic Assessment & Plan: He was on 112mcg daily of Levothyroxine, but TSH was 10.10. Levothyroxine was increased to 125mcg daily. Recommend recheck of TSH in six weeks. He was switched to IV Levothyroxine during NPO status. (7) Pulmonary hypertension Status: Chronic Assessment & Plan: On chronic treatment as noted above. (8) DVT (deep venous thrombosis) Status: Chronic Assessment & Plan: On chronic Eliquis. (9) Atrial fibrillation/flutter Status: Chronic Assessment & Plan: He is on chronic carvedilol. (10) Dermatitis Assessment & Plan: He has a rash present to bilateral lower extremities. He has been placed on Triamcinolone. (11) Cirrhosis of liver Status: Chronic Assessment & Plan: This could potentially be related to his chronic pulmonary HTN with resultant "cardiac cirrhosis". Labs currently pending to screen/evaluate for other potential causes. Heart Failure Ejection Fraction %: 60 RVSP (mmHg): 82 NYHA Class: II Is Patient on MAHI Inhibitor?: No Is Patient on Beta Jigar?: Yes Exam Sepsis Risk: No Definite Risk Problem Qualifiers (1) Nausea & vomiting: Vomiting type: unspecified Vomiting Intractability: unspecified Qualified Codes: R11.2 - Nausea with vomiting, unspecified [facility] Apr 25, 2018 09:29
[2018-04-25] MEDS: CARVEDILOL 6.25 MG TAB PO SCH ×2 (09:59→21:00)
[2018-04-25] MEDS: FUROSEMIDE 40 MG TAB PO SCH (09:59)
[2018-04-25] MEDS: FAMOTIDINE 20 MG TAB PO SCH ×2 (09:59→20:40)
[2018-04-25] MEDS: APIXABAN 2.5 MG TABLET PO SCH ×2 (10:00→20:40)
[2018-04-25] MEDS: RIOCIGUAT 2.5 MG PO SCH ×3 (10:00→20:39)
[2018-04-25 11:33] VITALS: BP 154/85
[2018-04-25] MEDS: CLOPIDOGREL BISULFATE 75MG TAB PO SCH (11:36)
[2018-04-25] MEDS: 1: INS HUM REG* 100 U/ML(ER ONLY) 10 UNIT, MULTIVITAMINS(*) 10 ML VIAL 10 ML, TRACE META IV SCH (11:39)
--- NOTE | 2018-04-25 13:58 | Medical Nutrition Therapy ---
Nutrition Anthropometrics Height (Inches): 66.00 Height (Calculated Centimeters: 167.202565 Weight (Pounds): 151 Weight (Calculated Kilograms): 68.748 BMI: 24.5 Christiano Nutrition Score: Very Poor Christiano Nutrition Risk Score: 17 Dietary Referral Nutrition Risk Factors: Nutrition Risk Comment: NG for suction Physical Findings Physical Appearance: WNR Skin Appearance Skin Appearance: Edema Edema Location Modifier: Both Edema Location: Foot Type of Edema: Degree of Edema: Gastrointestinal Symptoms GI Symtoms: Diarrhea, Change in Bowel Pattern Tube Present: NG Bowel Sounds: Recent Bowel Pattern: Stool Characteristics: Nutritional Diagnosis Nutritional Risk Acuity 1: TPN/PPN, GI Obstruction Nutritional Risk Acuity 2: CHF w/Complication, Chronic Renal Failure Nutritional Risk Acuity 3: Nausea Past Medical History: Hx of CHF, CKD-2, DVT, CAD, hypothyroid Nutritional Acuity: 1-High Nutrition Diagnosis: Increased Nutrient Needs Nutrition Etiology: Physiological Causes Nutrition Problem/Etiology/Sym: AEB low alb 2.6, Ca 8.2 Energy Requirement: 1750 (M-SJ) Protein Requirement: 80 (71kg* 1.1) Fluid Requirement: 1750 (1ml/kcal) Diet Type: Shelby/Soft Nutrition Intervention: Nutrition support, Incr diet as tolerated Nutritional Support Current Enteral / Parental: TPN Rate: 75ml/hr Current Calories: 1584 Current Protein: 90 Current Lipids Calories: 500 Total Current Calories: 2084 Nutrition Monitoring & Eval Nutrition Goals: Eat 75-100% Meal, Drink > 1500 cc/day Nutrition Follow-Up: Fair Intake RD Patient Assessment Time: [address] Assessment Type: RD Re-Assessment Patient Nutrition Acuity: 1-High Follow Up Date: Apr 27, 2018 Nutritional Comment: 04/14 Pt discharged on . after evaluatin of SBO. Pt admitted 11.8 for SBO with symptoms of n/v and abd pain. Pt reported going home on a clear liq diet, and eating steak the wing day. Pt has hx of CAD, CHF, CDK-2, DVT, and hypothyroid. Pt NPO and on NG tube for suction. Pt has 60% ejection fraction, BNP 297. Pt has low CA of 8.2, Mg of 1.5, and Alb at 2.6. TB 04/16/18 Pt improving with NG removed this AM and diet progression to Clear liquids. No reports of Clear liquid intake at present. Alb 2.9. Encourage intake. -DRT 04/19 Pt moved back to NPO/Ice chips. Will start PPN today at 125ml/hr meeting 73% kcal, 108% protein needs. Planned initiation for TPN tomorrow, recommend 75ml/hr + lipids. This will provide 2085 kcals and 90g protein. Pt's stomach is distended but reports flatus with no c/o n/v. Alb low at 2.5, will follow once nutrition support starts. TB 04/21 Pt NPO + TPN + lipids. Pt's kcal and protein needs are being met. Alb is up at at 3.2 from 2.5. Will cont to follow pt's progress and adherence to TPN. TB 04/22 Cont'ed TPN and lipids. Stomach feels distended, no pain. Also n/v has subsided. Pt is passing flatus and stool. Cont bowel rest and TPN. TB 04/25 Pt moved to Shelby/Soft diet with cont'ed TPN + lipids. Pt was consuming 75-100% of clear liquids for breakfast and lunch, but decreased intake at dinner. TPN will be cont until pt is tolerating regular diet per MD note. Pt denies n/v, bloating. Pt reported to me he hasn't had a bowel movement yesterday or today. Alb is back up to 3.4, Iron low at 25. BG is a little elevated, but most likley due to an increase in PO. Will follow PO for soft foods and if GI symptoms arise. TB JEROD HAWLEY Apr 25, 2018 09:45
[2018-04-25] MEDS: FAT EMULSION 20% 250 ML BAG 250 ML IVPB SCH (18:06)
[2018-04-25 19:22] VITALS: BP 127/63
[2018-04-25] MEDS: ROSUVASTATIN CALCIUM 10 MG TAB PO SCH (20:40)
[2018-04-25] MEDS ORDERED: CALCIUM CARBONATE 500 MG CHEW PO PRN (23:30)
[2018-04-26] MEDS: 1: INS HUM REG* 100 U/ML(ER ONLY) 10 UNIT, MULTIVITAMINS(*) 10 ML VIAL 10 ML, TRACE META IV SCH ×2 (01:18→15:25)
[2018-04-26 01:25] VITALS: BP 100/57
[2018-04-26 04:07] VITALS: BP 141/67
--- NOTE | 2018-04-26 05:33 | General Surgery Progress Note ---
Subjective Progress Notes Subjective Reports feeling more bloated today. No pain or N/V. Still passing flatus and stool. Physical Exam Vital Signs Date Time Temp Pulse Resp B/P (MAP) Pulse Ox O2 Delivery O2 Flow Rate FiO2 04/26/18 04:07 98.4 87 20 141/67 (91) 90 Nasal Cannula 4.0 Intake and Output 04/26/18 07:00 Intake Total 596 ml Output Total 975 ml Balance -379 ml Intake Oral 596 ml Output Urine Total 975 ml # Voids 1 General Appearance: Alert, Awake, No Acute Distress, Afebrile GI: Soft and Non-Tender (Abdominal exam is not much different then yesterday. He always has a protuberant abdomen.) Extremities: Warm, Perfused Result Diagram: 04/24/18 0708 04/24/18 07 Assessment and Plan Problems: (1) Ileus Status: Resolved Assessment & Plan: 04/13/2018: Meño had SBFT done two days ago that showed no obstruction. Abdomen is distended, but soft without significant tenderness. WBC down to 11 K. My impression is that this represents ileus. He does have a history of hypothyroidism but admits to not routinely taking his levothyroxin. He did take it last night. Agree with plan of NG decompression and IV hydration. Patient being admitted to Hospitalist service for further work up to see if we can determine the etiology of his ileus. Surgery will continue to follow closely during his admission. 04/14/2018: Abdomen much less distended after NG suction. No significant tender ness. WBC down to 9K. Will continue NG suction and IVF's, will get F/U abdomen radiographs in am. 04/15/2018: Abdomen less distended, soft, and benign this am. Ileus persists, so cont NGT and bowel rest. Int Med team to correct metabolic and electrolyte abnormalities. 04/16/2018: abdomen remains benign on exam with improved bowel function. DC NGT this am and continue NPO except meds with sips. Consider clear liquids this evening if continues to pass flatus. 04/17/2018: ileus resolved, ADAT. Would recommend an additional overnight observation since he was re-admitted this time with similar s/s so quickly from prior DC. Discussed with Int med team. 04/19/18: Still having GI issues. KUB doesn't look bad, still likely with ileus, possible poor gastric motility based on description of symptoms. Recommend making him NPO, place a PICC line, start TPN, which will provide nutrition while we go SLOWLY with advancing his diet and severely restrict intake volume. I would not advance diet until abdominal distention completely resolves. 04/20/18: Still bloated although he feels like he's improving. KUB yesterday is nonspecific, no obvious SBO. I recommend continuing NPO until bloating resolves. PICC line to be placed today so TPN can be restarted. If bloating doesn't improve over the next day or two then would recommend repeating abdominal CT, possibly with PO and IV contrast. I will continue to follow along with you until GI function returns to baseline. 04/21/18: Continued ileus. Recommend continuing bowel rest and TPN. Recommend SLOWLY resuming diet after distension improves further. If still distended tomorrow then will consider CT tomorrow. 04/22/18: Continued ileus vs SBO. Will get CT Abd/pelvis with PO and IV contrast today. Continue bowel rest and TPN. Will await the CT before deciding on further management. 04/23/18: CT actually looked good without signs of ileus or SBO. Diet advanced to clears. He's tolerating this so far. Will go slow on advancing his diet. Continue clear diet today and if tolerates will consider soft diet tomorrow. Continue TPN until he's tolerating a regular diet. 04/24/18: Progressing. Continue clears today, if he continues to do well with clears then will plan on GI soft diet tomorrow. Continue TPN until tolerating regular diet. 04/25/18: Doing well. Will try soft diet today, continue TPN until tolerating regular diet. 04/26/18: Feels more bloated. I recommend continuing current diet today and see how he does with it. Continue TPN. (2) Nausea & vomiting Status: Resolved Assessment & Plan: 04/13/2018: Meño had SBFT done two days ago that showed no obstruction. Abdomen is distended, but soft without significant tenderness. WBC down to 11 K. My impression is that this represents ileus. He does have a history of hypothyroidism but admits to not routinely taking his levothyroxin. He did take it last night. Agree with plan of NG decompression and IV hydration. Patient being admitted to Hospitalist service for further work up to see if we can determine the etiology of his ileus. Surgery will continue to follow closely during his admission. 04/14/2018: Abdomen much less distended after NG suction. No significant tenderness. WBC down to 9K. Will continue NG suction and IVF's, will get F/U abdomen radiographs in am. 04/15/2018: Abdomen less distended, soft, and benign this am. Ileus persists, so cont NGT and bowel rest. Int Med team to correct metabolic and electrolyte abnormalities. 04/16/2018: abdomen remains benign on exam with improved bowel function. DC NGT this am and continue NPO except meds with sips. Consider clear liquids this evening if continues to pass flatus. 04/17/2018: ileus resolved, ADAT. Would recommend an additional overnight observation since he was re-admitted this time with similar s/s so quickly from prior DC. Discussed with Int med team. 04/19/18: Still having GI issues. KUB doesn't look bad, still likely with ileus, possible poor gastric motility based on description of symptoms. Recommend making him NPO, place a PICC line, start TPN, which will provide n utrition while we go SLOWLY with advancing his diet and severely restrict intake volume. I would not advance diet until abdominal distention completely resolves. Condition Stable. Time Spent: < 30 min Exam Sepsis Risk: No Definite Risk Problem Qualifiers (1) Nausea & vomiting: Vomiting type: unspecified Vomiting Intractability: unspecified Qualified Codes: R11.2 - Nausea with vomiting, unspecified NAN VILLANUEVA MD Apr 26, 2018 05:33
[2018-04-26] MEDS: LEVOTHYROXINE SOD 0.125 MG TAB PO SCH (05:57)
[2018-04-26 07:52] VITALS: BP 111/71
[2018-04-26 07:56] VITALS: BP 118/66
[2018-04-26] MEDS: TRIAMCINOLONE ACE 0.1% CR 15GM TP SCH ×2 (09:00→21:00)
[2018-04-26] MEDS: FAMOTIDINE 20 MG TAB PO SCH ×2 (09:23→21:02)
[2018-04-26] MEDS: CARVEDILOL 6.25 MG TAB PO SCH ×2 (09:23→21:02)
[2018-04-26] MEDS: CLOPIDOGREL BISULFATE 75MG TAB PO SCH (09:23)
[2018-04-26] MEDS: APIXABAN 2.5 MG TABLET PO SCH ×2 (09:23→21:01)
[2018-04-26] MEDS: RIOCIGUAT 2.5 MG PO SCH ×3 (09:23→21:01)
[2018-04-26] MEDS: FUROSEMIDE 40 MG TAB PO SCH (09:23)
[2018-04-26] MEDS: HYPROMELLOSE 0.4% LUB 15ML BTL OU PRN (09:26)
[2018-04-26 11:23] VITALS: BP_SYST 104; BP_SYST 194; BP_DIAS 68
--- NOTE | 2018-04-26 13:34 | Hospitalist Progress Note ---
Subjective Progress Notes Subjective He reports he had increased abdominal distention last night. However, has improved this morning. He has been having bowel movements and passing gas. Patient Complains of: Cardiovascular: No: Chest Pain Respiratory: No: Shortness of Breath Physical Exam Vital Signs Date Time Temp Pulse Resp B/P (MAP) Pulse Ox O2 Delivery O2 Flow Rate FiO2 04/26/18 11:23 97.9 70 18 104/68 (80) 91 Nasal Cannula 4.0 Intake and Output 04/26/18 07:00 Intake Total 596 ml Output Total 1175 ml Balance -579 ml Intake Oral 596 ml Output Urine Total 1175 ml # Voids 1 General Appearance: Alert, Awake, No Acute Distress, Afebrile Neuro: No Gross deficits Cardiovascular: Regular Rate and Rhythm Respiratory: No Respiratory Distress, Clear to Auscultation GI: Soft and Non-Tender, Other (mild distention noted) Extremities: Warm, Perfused; No Edema Psych: Alert & Oriented X3, Appropriate Mood & Affect Result Diagram: 04/24/18 0708 04/24/18 0708 Assessment and Plan Problems: (1) Nausea & vomiting Status: Resolved Assessment & Plan: Improved with NG decompression - now removed. Diet was advanced 04/17, but the patient drank multiple sodas and had increased abdominal bloating. His diet was cut back to only ice chips. Attempted diet advance again 04/18, with further abdominal bloating. Surgery recommended TPN with slow advance of diet. PICC line was placed 04/[address] of abd/pelvis done 04/22 shows resolution of ileus (or obstruction), but cirrhotic changes to liver. He seems to be tolerating clear liquids. His diet was advanced 04/25. He will continue soft diet again today. (2) CHF (congestive heart failure) Assessment & Plan: CXR shows small pleural effusions. BNP (297) was lower than his usual. Judicious use of IV fluids. Recent ECHO shows right sided heart failure with severe pulmonary HTN. He is on chronic Adempas 2.5mg PO TID. (3) Monoclonal gammopathies Status: Chronic Assessment & Plan: Indolent per report, follows with cancer center. (4) Chronic kidney disease Status: Chronic Assessment & Plan: Stage 2 per record review, Cr baseline 1.0-1.2 (5) CAD (coronary artery disease) Status: Chronic Assessment & Plan: He is on chronic treatment with Plavix and Crestor. (6) Hypothyroid Status: Chronic Assessment & Plan: He was on 112mcg daily of Levothyroxine, but TSH was 10.10. Levothyroxine was increased to 125mcg daily. Recommend recheck of TSH in six weeks. He was switched to IV Levothyroxine during NPO status. (7) Pulmonary hypertension Status: Chronic Assessment & Plan: On chronic treatment as noted above. (8) DVT (deep venous thrombosis) Status: Chronic Assessment & Plan: On chronic Eliquis. (9) Atrial fibrillation/flutter Status: Chronic Assessment & Plan: He is on chronic carvedilol. (10) Dermatitis Assessment & Plan: He has a rash present to bilateral lower extremities. He has been placed on Triamcinolone. (11) Cirrhosis of liver Status: Chronic Assessment & Plan: This could potentially be related to his chronic pulmonary HTN with resultant "cardiac cirrhosis". Hepatitis B and C negative. Heart Failure Ejection Fraction %: 60 RVSP (mmHg): 82 NYHA Class: II Is Patient on MAHI Inhibitor?: No Is Patient on Beta Jigar?: Yes Exam Sepsis Risk: No Definite Risk Problem Qualifiers (1) Nausea & vomiting: Vomiting type: unspecified Vomiting Intractability: unspecified Qualified Codes: R11.2 - Nausea with vomiting, unspecified CLEMENCIA AGARWAL [employer] Apr 26, 2018 13:34
[2018-04-26] MEDS: FAT EMULSION 20% 250 ML BAG 250 ML IVPB SCH (17:13)
[2018-04-26 20:57] VITALS: BP 117/55
[2018-04-26] MEDS: RANITIDINE HCL 150 MG TAB PO SCH (21:01)
[2018-04-26] MEDS: ROSUVASTATIN CALCIUM 10 MG TAB PO SCH (21:02)
[2018-04-26] MEDS: MELATONIN 3 MG TAB PO SCH (21:02)
[2018-04-27] VITALS (8 sets, daily range): BP systolic 98–141; BP diastolic 58–100
[2018-04-27] MEDS ORDERED: ACETAMINOPHEN 500 MG TAB PO PRN
[2018-04-27] MEDS ORDERED: oxyCODONE HCL 5 MG CAP PO ONE (00:15)
[2018-04-27] MEDS: 1: INS HUM REG* 100 U/ML(ER ONLY) 10 UNIT, MULTIVITAMINS(*) 10 ML VIAL 10 ML, TRACE META IV SCH (04:05)
[2018-04-27] MEDS: LEVOTHYROXINE SOD 0.125 MG TAB PO SCH (05:33)
[2018-04-27] MEDS ORDERED: hydrOXYzine 25 MG TAB PO ONE (05:55)
[2018-04-27 06:27] LABS: PLATELET COUNT, AUTOMATED 281 K/uL (150-450)
[2018-04-27] MEDS ORDERED: 1: INS HUM REG* 100 U/ML(ER ONLY) 10 UNIT, MULTIVITAMINS(*) 10 ML VIAL 10 ML, TRACE META IV SCH (06:51)
--- NOTE | 2018-04-27 07:22 | General Surgery Progress Note ---
Subjective Progress Notes Subjective Main complaint is left shoulder pain that started overnight. He can't remember any event that led to the pain. He's having problems moving his left arm due to the pain. No GI complaints this morning. Passing flatus and stool. Physical Exam Vital Signs Date Time Temp Pulse Resp B/P (MAP) Pulse Ox O2 Delivery O2 Flow Rate FiO2 04/27/18 03:04 98.7 70 22 116/59 (78) 88 Nasal Cannula 3.0 Intake and Output 04/27/18 07:00 Intake Total 2305 ml Output Total 1100 ml Balance 1205 ml Intake Oral 340 ml IV Total 1965 ml Output Urine Total 1100 ml # Voids 5 # Bowel Movements 1 General Appearance: Alert, Awake, No Acute Distress, Afebrile GI: Soft and Non-Tender Extremities: Warm, Perfused, Other (TTP over the joint line) Result Diagram: 04/27/1852604/27/18526 Assessment and Plan Problems: (1) Ileus Status: Resolved Assessment & Plan: 04/13/2018: Meño had SBFT done two days ago that showed no obstruction. Abdomen is distended, but soft without significant tenderness. WBC down to 11 K. My impression is that this represents ileus. He does have a history of hypothyroidism but admits to not routinely taking his levothyroxin. He did take it last night. Agree with plan of NG decompression and IV hydration. Patient being admitted to Hospitalist service for further work up to see if we can determine the etiology of his ileus. Surgery will continue to follow closely during his admission. 04/14/2018: Abdomen much less distended after NG suction. No significant tenderness. WBC down to 9K. Will continue NG suction and IVF's, will get F/U abdomen radiographs in am. 04/15/2018: Abdomen less distended, soft, and benign this am. Ileus persists, so cont NGT and bowel rest. Int Med team to correct metabolic and electrolyte abnormalities. 04/16/2018: abdomen remains benign on exam with improved bowel function. DC NGT this am and continue NPO except meds with sips. Consider clear liquids this evening if continues to pass flatus. 04/17/2018: ileus resolved, ADAT. Would recommend an additional overnight observation since he was re-admitted this time with similar s/s so quickly from prior DC. Discussed with Int med team. 04/19/18: Still having GI issues. KUB doesn't look bad, still likely with ileus, possible poor gastric motility based on description of symptoms. Recommend making him NPO, place a PICC line, start TPN, which will provide nutrition while we go SLOWLY with advancing his diet and severely restrict intake volume. I would not advance diet until abdominal distention completely resolves. 04/20/18: Still bloated although he feels like he's improving. KUB yesterday is nonspecific, no obvious SBO. I recommend continuing NPO until bloating resolves. PICC line to be placed today so TPN can be restarted. If bloating doesn't improve over the next day or two then would recommend repeating abdominal CT, possibly with PO and IV contrast. I will continue to follow along with you until GI function returns to baseline. 04/21/18: Continued ileus. Recommend continuing bowel rest and TPN. Recommend SLOWLY resuming diet after distension improves further. If still distended tomorrow then will consider CT tomorrow. 04/22/18: Continued ileus vs SBO. Will get CT Abd/pelvis with PO and IV contrast today. Continue bowel rest and TPN. Will await the CT before deciding on further management. 04/23/18: CT actually looked good without signs of ileus or SBO. Diet advanced to clears. He's tolerating this so far. Will go slow on advancing his diet. Continue clear diet today and if tolerates will consider soft diet tomorrow. Continue TPN until he's tolerating a regular diet. 04/24/18: Progressing. Continue clears today, if he continues to do well with clears then will plan on GI soft diet tomorrow. Continue TPN until tolerating regular diet. 04/25/18: Doing well. Will try soft diet today, continue TPN until tolerating regular diet. 04/26/18: Feels more bloated. I recommend continuing current diet today and see how he does with it. Continue TPN. 04/27/18: Feeling good from GI standpoint today. Will try regular diet today and come down on TPN. Will get an x-ray of his left shoulder and will try lidocaine patch for the pain. Acetaminophen contraindicated due to cirrhosis, NSAIDS contraindicated due to antiplatelet therapy. Will also use ice and/or heat. O/W CCM. (2) Nausea & vomiting Status: Resolved Assessment & Plan: 04/13/2018: Meño had SBFT done two days ago that showed no obstruction. Abdomen is distended, but soft without significant tenderness. WBC down to 11 K. My impression is that this represents ileus. He does have a history of hypothyroidism but admits to not routinely taking his levothyroxin. He did take it last night. Agree with plan of NG decompression and IV hydration. Patient being admitted to Hospitalist service for further work up to see if we can determine the etiology of his ileus. Surgery will continue to follow closely during his admission. 04/14/2018: Abdomen much less distended after NG suction. No significant tenderness. WBC down to 9K. Will continue NG suction and IVF's, will get F/U abdomen radiographs in am. 04/15/2018: Abdomen less distended, soft, and benign this am. Ileus persists, so cont NGT and bowel rest. Int Med team to correct metabolic and electrolyte abnormalities. 04/16/2018: abdomen remains benign on exam with improved bowel function. DC NGT this am and continue NPO except meds with sips. Consider clear liquids this evening if continues to pass flatus. 04/17/2018: ileus resolved, ADAT. Would recommend an additional overnight observation since he was re-admitted this time with similar s/s so quickly from prior DC. Discussed with Int med team. 04/19/18: Still having GI issues. KUB doesn't look bad, still likely with ileus, possible poor gastric motility based on description of symptoms. Recommend making him NPO, place a PICC line, start TPN, which will provide nutrition while we go SLOWLY with advancing his diet and severely restrict intake volume. I would not advance diet until abdominal distention completely resolves. (3) Left shoulder pain Status: Acute Condition Stable. Time Spent: < 30 min Exam Sepsis Risk: No Definite Risk Problem Qualifiers (1) Nausea & vomiting: Vomiting type: unspecified Vomiting Intractability: unspecified Qualified Codes: R11.2 - Nausea with vomiting, unspecified (2) Left shoulder pain: Chronicity: acute Qualified Codes: M25.512 - Pain in left shoulder NAN VILLANUEVA MD Apr 27, 2018 07:22
--- NOTE | 2018-04-27 08:25 | RADIOLOGY IMAGING REPORT ---
FACILITY: [facility] PATIENT NAME: Meño Arechiga : 1940 MR: [id number] V: [id number] EXAM DATE: ORDERING PHYSICIAN: NAN VILLANUEVA TECHNOLOGIST: Location: [facility] [place] Patient: Meño Arechiga : 1940 Visit/Account:[id number] Date of Sevice: 04/27/2018 Technique: SHOULDER MIN 2 VIEWS LEFT HISTORY: Left-sided shoulder pain Comparison studies: None FINDINGS: There is no acute fracture. Degenerative changes are noted within the left shoulder includi ng marginal osteophytosis of the glenohumeral joint. There is slight widening of the acromioclavicula r joint which may be degenerative, postoperative or the sequela of previous trauma. The remaining ali gnment of the left shoulder is maintained. IMPRESSION: 1. Degenerative changes as described above. Report Dictated By: Satish Stoll DO at 04/27/2018 8:19 AM Report E-Signed By: Satish Stoll DO at 04/27/2018 8:21 AM WSN:[id number]
[2018-04-27] MEDS ORDERED: FUROSEMIDE 40 MG/4 ML VIAL IVP ONE (09:15)
[2018-04-27] MEDS: TRIAMCINOLONE ACE 0.1% CR 15GM TP SCH ×2 (09:44→20:48)
[2018-04-27] MEDS: RANITIDINE HCL 150 MG TAB PO SCH ×2 (09:44→20:47)
[2018-04-27] MEDS: APIXABAN 2.5 MG TABLET PO SCH ×2 (09:44→20:47)
[2018-04-27] MEDS: CARVEDILOL 6.25 MG TAB PO SCH ×2 (09:44→20:47)
[2018-04-27] MEDS: CLOPIDOGREL BISULFATE 75MG TAB PO SCH (09:44)
[2018-04-27] MEDS: FAMOTIDINE 20 MG TAB PO SCH ×2 (09:44→20:48)
[2018-04-27] MEDS: RIOCIGUAT 2.5 MG PO SCH ×3 (09:45→20:49)
[2018-04-27] MEDS: LIDOCAINE 5% PATCH TP SCH (09:45)
--- NOTE | 2018-04-27 10:27 | Hospitalist Progress Note ---
Subjective Progress Notes Subjective This patient was admitted for a small bowel obstruction. He had no acute events overnight. Patient Complains of: Cardiovascular: No: Chest Pain Respiratory: No: Shortness of Breath Physical Exam Vital Signs Date Time Temp Pulse Resp B/P (MAP) Pulse Ox O2 Delivery O2 Flow Rate FiO2 04/27/18 08:58 24 98/61 (73) 91 Nasal Cannula 3.0 04/27/18 07:46 98.3 69 Intake and Output 04/27/18 07:00 Intake Total 2305 ml Output Total 1100 ml Balance 1205 ml Intake Oral 340 ml IV Total 1965 ml Output Urine Total 1100 ml # Voids 5 # Bowel Movements 1 Cardiovascular: Regular Rate and Rhythm, Other (JVD present.) Respiratory: Clear to Auscultation GI: Soft and Non-Tender Extremities: Edema Result Diagram: 04/27/1852604/27/18526 Assessment and Plan Problems: (1) Nausea & vomiting Status: Resolved Assessment & Plan: Improved with NG decompression - now removed. Diet was adva nced 04/17, but the patient drank multiple sodas and had increased abdominal bloating. His diet was cut back to only ice chips. Attempted diet advance again 04/18, with further abdominal bloating. Surgery recommended TPN with slow advance of diet. PICC line was placed 04/[address] of abd/pelvis done 04/22 shows resolution of ileus (or obstruction), but cirrhotic changes to liver. He seems to be tolerating clear liquids. His diet was advanced 04/25. (2) CHF (congestive heart failure) Assessment & Plan: His chest x-ray has shown small pleural effusions. An echocardiogram from his previous admission has shown his right ventricular pre ssure to be 69mmHg. He is on chronic treatment with Adempas. He has also been restarted on his oral Lasix and carvedilol. He is having increased edema and JVD is present on today's exam. We have elected to give him an additional dose of IV Lasix. (3) Monoclonal gammopathies Status: Chronic Assessment & Plan: Indolent per report, follows with cancer center. (4) CAD (coronary artery disease) Status: Chronic Assessment & Plan: He is on chronic treatment with Plavix and Crestor. (5) Hypothyroid Status: Chronic Assessment & Plan: He was on 112mcg daily of Levothyroxine, but TSH was 10.10. His levothyroxine was increased to 125mcg daily. He will need to have a repeat TSH in 4-6 weeks. (6) Pulmonary hypertension Status: Chronic Assessment & Plan: On chronic treatment as noted above. (7) DVT (deep venous thrombosis) Status: Chronic Assessment & Plan: On chronic Eliquis. (8) Atrial fibrillation/flutter Status: Chronic Assessment & Plan: He is on chronic carvedilol. (9) Dermatitis Assessment & Plan: He has a rash present to bilateral lower extremities. He has been placed on Triamcinolone. (10) Cirrhosis of liver Status: Chronic Assessment & Plan: This could potentially be related to his chronic pulmonary HTN with resultant "cardiac cirrhosis". Hepatitis B and C negative. Heart Failure Ejection Fraction %: 60 RVSP (mmHg): 82 NYHA Class: II Is Patient on MAHI Inhibitor?: No Is Patient on Beta Jigar?: Yes Exam Sepsis Risk: No Definite Risk Problem Qualifiers (1) Nausea & vomiting: Vomiting type: unspecified Vomiting Intractability: unspecified Qualified Codes: R11.2 - Nausea with vomiting, unspecified (2) CHF (congestive heart failure): Heart failure type: right-sided Heart failure chronicity: acute Qualified Codes: I50.811 - Acute right heart failure NAN CORTES DO Apr 27, 2018 10:26
--- NOTE | 2018-04-27 12:08 | Medical Nutrition Therapy ---
Nutrition Anthropometrics Height (Inches): 66.00 Height (Calculated Centimeters: 167.731908 Weight (Pounds): 152 Weight (Calculated Kilograms): 68.974 BMI: 24.5 Christian[facility] Nutrition Score: Very Poor Christiano Nutrition Risk Score: 17 Dietary Referral Nutrition Risk Factors: Nutrition Risk Comment: NG for suction Nutritional Diagnosis Nutritional Risk Acuity 1: TPN/PPN, GI Obstruction Nutritional Risk Acuity 2: CHF w/Complication, Chronic Renal Failure Nutritional Risk Acuity 3: Nausea Past Medical History: Hx of CHF, CKD-2, DVT, CAD, hypothyroid Nutritional Acuity: 1-High Nutrition Diagnosis: Increased Nutrient Needs Nutrition Etiology: Physiological Causes Nutrition Problem/Etiology/Sym: AEB low alb 2.6, Ca 8.2 Energy Requirement: 1750 (M-SJ) Protein Requirement: 80 (71kg* 1.1) Fluid Requirement: 1750 (1ml/kcal) Diet Type: Diet as Tolerated CABRERA/REG Nutrition Intervention: Cont diet as ordered, Encourage intake, Between meal supplement, Nutrition support Additional Diet Restrictions: OFFER NUTR SUPPLMENT Nutritional Support Current Enteral / Parental: TPN Rate: 35ml/hr Current Calories: 739 Current Protein: 42 Current Lipids Calories: 500 Total Current Calories: 1239 Nutrition Monitoring & Eval RD Patient Assessment Time: [address] Assessment Type: RD Re-Assessment Patient Nutrition Acuity: 1-High Follow Up Date: Apr 30, 2018 Nutritional Comment: 04/14 Pt discharged on 11.5 after evaluatin of SBO. Pt admitted 11.8 for SBO with symptoms of n/v and abd pain. Pt reported going home on a clear liq diet, and eating steak the follwing day. Pt has hx of CAD, CHF, CDK-2, DVT, and hypothyroid. Pt NPO and on NG tube for suction. Pt has 60% ejection fraction, BNP 297. Pt has low CA of 8.2, Mg of 1.5, and Alb at 2.6. TB 04/16/18 Pt improving with NG removed this AM and diet progression to Clear liquids. No reports of Clear liquid intake at present. Alb 2.9. Encourage intake. -DRT 04/19 Pt moved back to NPO/Ice chips. Will start PPN today at 125ml/hr meeting 73% kcal, 108% protein needs. Planned initiation for TPN tomorrow, recommend 75ml/hr + lipids. This will provide 2085 kcals and 90g protein. Pt's stomach is distended but reports flatus with no c/o n/v. Alb low at 2.5, will follow once nutrition support starts. TB 04/21 Pt NPO + TPN + lipids. Pt's kcal and protein needs are being met. Alb is up at at 3.2 from 2.5. Will cont to follow pt's progress and adherence to TPN. TB 04/22 Cont'ed TPN and lipids. Stomach feels distended, no pain. Also n/v has subsided. Pt is passing flatus and stool. Cont bowel rest and TPN. TB 04/25 Pt moved to [place]/Soft diet with cont'ed TPN + lipids. Pt was consuming 75-100% of clear liquids for breakfast and lunch, but decreased intake at dinner. TPN will be cont until pt is tolerating regular diet per MD note. Pt denies n/v, bloating. Pt reported to me he hasn't had a bowel movement yesterday or today. Alb is back up to 3.4, Iron low at 25. BG is a little elevated, but most likley due to an increase in PO. Will follow PO for soft foods and if GI symptoms arise. TB 04/27 Diet advanced to regular. Pt had been eating 50-100% of small portions. Pt C/O shoulder pain this am and refused breakfast. Pt stating it hurt too much to move arm to eat. Pt did accept a nutr supplement. TPN reduced to 35ml/hr plus lipids which is meeting 71% est kcal and 53% est protein needs. Goal is to meet nutr need from oral intake. Alb 2.7. Will cont to monitor and encourage intake. TELLY SALEH Apr 27, 2018 12:08
[2018-04-27] MEDS: FAT EMULSION 20% 250 ML BAG 250 ML IVPB SCH (16:18)
[2018-04-27] MEDS ORDERED: INSULIN HUM REG 100 UN/ML 3 ML 10 UNIT, MULTIVITAMINS(*) 10 ML VIAL 10 ML, TRACE METALS... IV SCH (16:45)
[2018-04-27] MEDS: MELATONIN 3 MG TAB PO SCH (20:47)
[2018-04-27] MEDS: ROSUVASTATIN CALCIUM 10 MG TAB PO SCH (20:48)
[2018-04-27] MEDS: PATCH REMOVAL 1 EA TP SCH (20:48)
[2018-04-28] VITALS (7 sets, daily range): BP systolic 101–137; BP diastolic 56–77
[2018-04-28] MEDS: MORPHINE IR 15 MG TAB PO PRN ×2 (00:56→08:20)
[2018-04-28] MEDS ORDERED: INSULIN HUM REG 100 UN/ML 3 ML 10 UNIT, MULTIVITAMINS(*) 10 ML VIAL 10 ML, TRACE METALS... IV SCH (04:00)
[2018-04-28] MEDS: LEVOTHYROXINE SOD 0.125 MG TAB PO SCH (05:38)
[2018-04-28 06:00] LABS: PLATELET COUNT, AUTOMATED 265 K/uL (150-450)
--- NOTE | 2018-04-28 08:58 | General Surgery Progress Note ---
Subjective Progress Notes Subjective Main complaint this morning is now bilateral shoulder pain related. No GI complaints. Passing flatus and stool. No N/V or bloating. No abdominal pain. Physical Exam Vital Signs Date Time Temp Pulse Resp B/P (MAP) Pulse Ox O2 Delivery O2 Flow Rate FiO2 04/28/18 07:58 97.3 71 20 101/56 (71) 91 Nasal Cannula 4.0 Intake and Output 04/28/18 06:59 Intake Total 1692.5 ml Output Total 1820 ml Balance -127.5 ml Intake Oral 755 ml IV Total 937.5 ml Output Urine Total 1820 ml General Appearance: Alert, Awake, No Acute Distress, Afebrile GI: Soft and Non-Tender Extremities: Warm, Perfused Result Diagram: 04/28/18 0534 04/28/18 0534 Assessment and Plan Problems: (1) Ileus Status: Resolved Assessment & Plan: 04/13/2018: Meño had SBFT done two days ago that showed no obstruction. Abdomen is distended, but soft without significant tenderness. WBC down to 11 K. My impression is that this represents ileus. He does have a history of hypothyroidism but admits to not routinely taking his levothyroxin. He did take it last night. Agree with plan of NG decompression and IV hydration. Patient being admitted to Hospitalist service for further work up to see if we can determine the etiology of his ileus. Surgery will continue to follow closely during his admission. 04/14/2018: Abdomen much less distended after NG suction. No significant tenderness. WBC down to 9K. Will continue NG suction and IVF's, will get F/U abdomen radiographs in am. 04/15/2018: Abdomen less distended, soft, and benign this am. Ileus persists, so cont NGT and bowel rest. Int Med team to correct metabolic and electrolyte abnormalities. 04/16/2018: abdomen remains benign on exam with improved bowel function. DC NGT this am and continue NPO except meds with sips. Consider clear liquids this evening if continues to pass flatus. 04/17/2018: ileus resolved, ADAT. Would recommend an additional overnight observation since he was re-admitted this time with similar s/s so quickly from prior DC. Discussed with Int med team. 04/19/18: Still having GI issues. KUB doesn't look bad, still likely with ileus, possible poor gastric motility based on description of symptoms. Recommend making him NPO, place a PICC line, start TPN, which will provide nutrition while we go SLOWLY with advancing his diet and severely restrict intake volume. I would not advance diet until abdominal distention completely resolves. 04/20/18: Still bloated although he feels like he's improving. KUB yesterday is nonspecific, no obvious SBO. I recommend continuing NPO until bloating re solves. PICC line to be placed today so TPN can be restarted. If bloating doesn't improve over the next day or two then would recommend repeating abdominal CT, possibly with PO and IV contrast. I will continue to follow along with you until GI function returns to baseline. 04/21/18: Continued ileus. Recommend continuing bowel rest and TPN. Recommend SLOWLY resuming diet after distension improves further. If still distended tomorrow then will consider CT tomorrow. 04/22/18: Continued ileus vs SBO. Will get CT Abd/pelvis with PO and IV contrast today. Continue bowel rest and TPN. Will await the CT before deciding on further management. 04/23/18: CT actually looked good without signs of ileus or SBO. Diet advanced to clears. He's tolerating this so far. Will go slow on advancing his diet. Continue clear diet today and if tolerates will consider soft diet tomorrow. Continue TPN until he's tolerating a regular diet. 04/24/18: Progressing. Continue clears today, if he continues to do well with clears then will plan on GI soft diet tomorrow. Continue TPN until tolerating regular diet. 04/25/18: Doing well. Will try soft diet today, continue TPN until tolerating regular diet. 04/26/18: Feels more bloated. I recommend continuing current diet today and see how he does with it. Continue TPN. 04/27/18: Feeling good from GI standpoint today. Will try regular diet today and come down on TPN. Will get an x-ray of his left shoulder and will try lidocaine patch for the pain. Acetaminophen contraindicated due to cirrhosis, NSAIDS contraindicated due to antiplatelet therapy. Will also use ice and/or heat. O/W [facility]. 04/28/18: Doing well from GI standpoint. Continue regular diet. Stop TPN today. X-ray of left should only with chronic arthritic changes. His arthritis discussed with Hospitalist and they will manage this. (2) Nausea & vomiting Status: Resolved Assessment & Plan: 04/13/2018: Meño had SBFT done two days ago that showed no obstruction. Abdomen is distended, but soft without significant tenderness. WBC down to 11 K. My impression is that this represents ileus. He does have a history of hypothyroidism but admits to not routinely taking his levothyroxin. He did take it last night. Agree with plan of NG decompression and IV hydration. Patient being admitted to Hospitalist service for further work up to see if we can determine the etiology of his ileus. Surgery will continue to follow closely during his admission. 04/14/2018: Abdomen much less distended after NG suction. No significant tenderness. WBC down to 9K. Will continue NG suction and IVF's, will get F/U abdomen radiographs in am. 04/15/2018: Abdomen less distended, soft, and benign this am. Ileus persists, so cont NGT and bowel rest. Int Med team to correct metabolic and electrolyte ab normalities. 04/16/2018: abdomen remains benign on exam with improved bowel function. DC NGT this am and continue NPO except meds with sips. Consider clear liquids this evening if continues to pass flatus. 04/17/2018: ileus resolved, ADAT. Would recommend an additional overnight observation since he was re-admitted this time with similar s/s so quickly from prior DC. Discussed with Int med team. 04/19/18: Still having GI issues. KUB doesn't look bad, still likely with ileus, possible poor gastric motility based on description of symptoms. Recommend making him NPO, place a PICC line, start TPN, which will provide nutrition while we go SLOWLY with advancing his diet and severely restrict intake volume. I would not advance diet until abdominal distention completely resolves. (3) Left shoulder pain Status: Acute Condition STable. Time Spent: < 30 min Exam Sepsis Risk: No Definite Risk Problem Qualifiers (1) Nausea & vomiting: Vomiting type: unspecified Vomiting Intractability: unspecified Qualified Codes: R11.2 - Nausea with vomiting, unspecified (2) Left shoulder pain: Chronicity: acute Qualified Codes: M25.512 - Pain in left shoulder NAN VILLANUEVA MD Apr 28, 2018 08:58
[2018-04-28] MEDS: CLOPIDOGREL BISULFATE 75MG TAB PO SCH (09:35)
[2018-04-28] MEDS: RANITIDINE HCL 150 MG TAB PO SCH ×2 (09:35→21:34)
[2018-04-28] MEDS: FAMOTIDINE 20 MG TAB PO SCH ×2 (09:36→21:34)
[2018-04-28] MEDS: RIOCIGUAT 2.5 MG PO SCH ×3 (09:36→21:00)
[2018-04-28] MEDS: methylPREDNIS SUCC 125 MG/2ML IVP SCH ×2 (09:36→21:42)
[2018-04-28] MEDS: LIDOCAINE 5% PATCH TP SCH (09:36)
[2018-04-28] MEDS: CARVEDILOL 6.25 MG TAB PO SCH ×2 (09:36→21:33)
[2018-04-28] MEDS: APIXABAN 2.5 MG TABLET PO SCH ×2 (09:36→21:33)
[2018-04-28] MEDS: TRIAMCINOLONE ACE 0.1% CR 15GM TP SCH ×2 (09:37→21:00)
--- NOTE | 2018-04-28 10:07 | Hospitalist Progress Note ---
Subjective Progress Notes Subjective He has tolerated PO intake. Appetite still diminished. He complains of both shoulders hurting. "I have had this before and steroids usually fix it". He reports no history of gout. Physical Exam Vital Signs Date Time Temp Pulse Resp B/P (MAP) Pulse Ox O2 Delivery O2 Flow Rate FiO2 04/28/18 09:34 118/77 (91) 89 04/28/18 07:58 97.3 71 20 Nasal Cannula 4.0 Intake and Output 04/28/18 06:59 Intake Total 1692.5 ml Output Total 1820 ml Balance -127.5 ml Intake Oral 755 ml IV Total 937.5 ml Output Urine Total 1820 ml General Appearance: Alert, Awake Cardiovascular: Regular Rate and Rhythm, No Edema Respiratory: Clear to Auscultation Chest: No Tenderness Extremities: Other (Left shoulder with small effusion/no redness or callor. Right shoulder does not appear to have an effsuion. Both have decreased ROM due to pain.) Psych: Alert & Oriented X3 Result Diagram: 04/28/18 0534 04/28/18 0534 Assessment and Plan Problems: (1) Nausea & vomiting Status: Resolved Assessment & Plan: Improved with NG decompression - now removed. Diet was advanced 04/17, but the patient drank multiple sodas and had increased abdominal bloating. His diet was cut back to only ice chips. Attempted diet advance again 04/18, with further abdominal bloating. Surgery recommended TPN with slow advance of diet. PICC line was placed 04/[address] of abd/pelvis done 04/22 shows resolution of ileus (or obstruction), but cirrhotic changes to liver. He seems to be tolerating clear liquids. His diet was advanced 04/25. TPN will be weaned off today - hopefully this will stimulate his appetite. (2) CHF (congestive heart failure) Assessment & Plan: His chest x-ray has shown small pleural effusions. An echocardiogram from his previous admission has shown his right ventricular pressure to be 69mmHg. He is on chronic treatment with Adempas. He has also be en restarted on his oral Lasix and carvedilol. He did receive an additional dose of IV Lasix yesterday. He appears to be closer to euvolemia today. (3) Monoclonal gammopathies Status: Chronic Assessment & Plan: Indolent per report, follows with cancer center. (4) CAD (coronary artery disease) Status: Chronic Assessment & Plan: He is on chronic treatment with Plavix and Crestor. (5) Hypothyroid Status: Chronic Assessment & Plan: He was on 112mcg daily of Levothyroxine, but TSH was 10.10. His levothyroxine was increased to 125mcg daily. He will need to have a repeat TSH in 4-6 weeks. (6) Pulmonary hypertension Status: Chronic Assessment & Plan: On chronic treatment as noted above. (7) DVT (deep venous thrombosis) Status: Chronic Assessment & Plan: On chronic Eliquis. (8) Atrial fibrillation/flutter Status: Chronic Assessment & Plan: He is on chronic carvedilol. (9) Dermatitis Assessment & Plan: He has a rash present to bilateral lower extremities. He has been placed on Triamcinolone. (10) Cirrhosis of liver Status: Chronic Assessment & Plan: This could potentially be related to his chronic pulmonary HTN with resultant "cardiac cirrhosis". Hepatitis B and C negative. (11) Shoulder pain, bilateral Status: Acute Assessment & Plan: I suspect he may have an acute gout of pseudogout attack. As he is on anticoagulant, would avoid arthrocentesis at this time. Will try a pulse of steroids to see if can help with pain/ROM. Check uric acid level. Heart Failure Ejection Fraction %: 60 RVSP (mmHg): 82 NYHA Class: II Is Patient on MAHI Inhibitor?: No Is Patient on Beta Jigar?: Yes Exam Sepsis Risk: No Definite Risk Problem Qualifiers (1) Nausea & vomiting: Vomiting type: unspecified Vomiting Intractability: unspecified Qualified Codes: R11.2 - Nausea with vomiting, unspecified (2) CHF (congestive heart failure): Heart failure type: right-sided Heart failure chronicity: acute Qualified Codes: I50.811 - Acute right heart failure RONDA GARCIA MD Apr 28, 2018 10:07
[2018-04-28] MEDS ORDERED: INSULIN HUM LISPRO 100 UN/ML 3 ML VIAL SUBQ PRN (19:05)
[2018-04-28] MEDS: PATCH REMOVAL 1 EA TP SCH (21:00)
[2018-04-28] MEDS: MELATONIN 3 MG TAB PO SCH (21:34)
[2018-04-28] MEDS: ROSUVASTATIN CALCIUM 10 MG TAB PO SCH (21:34)
[2018-04-29 05:22] VITALS: BP 115/62
[2018-04-29] MEDS: LEVOTHYROXINE SOD 0.125 MG TAB PO SCH (05:26)
[2018-04-29 05:59] LABS: PLATELET COUNT, AUTOMATED 320 K/uL (150-450)
[2018-04-29] MEDS ORDERED: INSULIN HUM LISPRO 100 UN/ML 3 ML VIAL SUBQ PRN (08:05)
[2018-04-29] MEDS: RIOCIGUAT 2.5 MG PO SCH ×3 (09:00→20:57)
--- NOTE | 2018-04-29 09:08 | Hospitalist Progress Note ---
Subjective Progress Notes Subjective This patient was admitted for a bowel obstruction. He had no acute events overnight. Patient Complains of: Cardiovascular: No: Chest Pain Respiratory: No: Shortness of Breath Physical Exam Vital Signs Date Time Temp Pulse Resp B/P (MAP) Pulse Ox O2 Delivery O2 Flow Rate FiO2 04/29/18 05:22 97.6 71 16 115/62 (79) 92 Nasal Cannula 3.5 Intake and Output 04/29/18 06:59 Intake Total 1437 ml Output Total 400 ml Balance 1037 ml Intake Oral 842 ml IV Total 595 ml Output Urine Total 400 ml # Voids 1 # Bowel Movements 1 Cardiovascular: Regular Rate and Rhythm Respiratory: Clear to Auscultation GI: Soft and Non-Tender Result Diagram: 04/29/1853004/29/18530 Assessment and Plan Problems: (1) Small bowel obstruction due to postoperative adhesions Status: Acute Assessment & Plan: Improved with NG decompression - now removed. Diet was advanced 04/17, but the patient drank multiple sodas and had increased abdominal bloating. His diet was cut back to only ice chips. Attempted diet advance again 04/18, with further abdominal bloating. Surgery recommended TPN with slow advance of diet. PICC line was placed 04/[address] of abd/pelvis done 04/22 shows resolution of ileus (or obstruction), but cirrhotic changes to liver. He seems to be tolerating clear liquids. His diet was advanced 04/25. TPN will be weaned off today - hopefully this will stimulate his appetite. (2) CHF (congestive heart failure) Assessment & Plan: His chest x-ray has shown small pleural effusions. An echocardiogram from his previous admission has shown his right ventricular pressure to be 69mmHg. He is on chronic treatment with Adempas. He has also been restarted on his oral Lasix and carvedilol. (3) Monoclonal gammopathies Status: Chronic Assessment & Plan: Indolent per report, follows with cancer center. (4) CAD (coronary artery disease) Status: Chronic Assessment & Plan: He is on chronic treatment with Plavix and Crestor. (5) Hypothyroid Status: Chronic Assessment & Plan: He was on 112mcg daily of Levothyroxine, but TSH was 10.10. His levothyroxine was increased to 125mcg daily. He will need to have a repeat TSH in 4-6 weeks. (6) Pulmonary hypertension Status: Chronic Assessment & Plan: On chronic treatment as noted above. (7) DVT (deep venous thrombosis) Status: Chronic Assessment & Plan: On chronic Eliquis. (8) Atrial fibrillation/flutter Status: Chronic Assessment & Plan: He is on chronic carvedilol. (9) Dermatitis Assessment & Plan: He has a rash present to bilateral lower extremities. He has been placed on Triamcinolone. (10) Cirrhosis of liver Status: Chronic Assessment & Plan: This could potentially be related to his chronic pulmonary HTN with resultant "cardiac cirrhosis". Hepatitis B and C negative. (11) Shoulder pain, bilateral Status: Acute Assessment & Plan: He has been complaining of bilateral shoulder pain. He was started on IV steroids yesterday for suspected gout. Today he reports improvement in his symptoms. We weaned the dose of his steroids today. Heart Failure Ejection Fraction %: 60 RVSP (mmHg): 82 NYHA Class: II Is Patient on MAHI Inhibitor?: No Is Patient on Beta Jigar?: Yes Exam Sepsis Risk: No Definite Risk Problem Qualifiers (1) CHF (congestive heart failure): Heart failure type: right-sided Heart failure chronicity: acute Qualified Codes: I50.811 - Acute right heart failure NAN CORTES DO Apr 29, 2018 09:08
--- NOTE | 2018-04-29 09:22 | General Surgery Progress Note ---
Subjective Progress Notes Subjective No complaints. Shoulder pain is improving on IV steroids. Physical Exam Vital Signs Date Time Temp Pulse Resp B/P (MAP) Pulse Ox O2 Delivery O2 Flow Rate FiO2 04/29/18 05:22 97.6 71 16 115/62 (79) 92 Nasal Cannula 3.5 Intake and Output 04/29/18 06:59 Intake Total 1437 ml Output Total 400 ml Balance 1037 ml Intake Oral 842 ml IV Total 595 ml Output Urine Total 400 ml # Voids 1 # Bowel Movements 1 General Appearance: Alert, Awake, No Acute Distress, Afebrile GI: Soft and Non-Tender Extremities: Warm, Perfused Result Diagram: 04/29/1853004/29/18530 Assessment and Plan Problems: (1) Ileus Status: Resolved Assessment & Plan: 04/13/2018: Meño had SBFT done two days ago that showed no obstruction. Abdomen is distended, but soft without significant tenderness. WBC down to 11 K. My impression is that this represents ileus. He does have a history of hypothyroidism but admits to not routinely taking his levothyroxin. He did take it last night. Agree with plan of NG decompression and IV hydration. Patient being admitted to Hospitalist service for further work up to see if we can determine the etiology of his ileus. Surgery will continue to follow closely during his admission. 04/14/2018: Abdomen much less distended after NG suction. No significant tenderness. WBC down to 9K. Will continue NG suction and IVF's, will get F/U abdomen radiographs in am. 04/15/2018: Abdomen less distended, soft, and benign this am. Ileus persists, so cont NGT and bowel rest. Int Med team to correct metabolic and electrolyte abnormalities. 04/16/2018: abdomen remains benign on exam with improved bowel function. DC NGT this am and continue NPO except meds with sips. Consider clear liquids this evening if continues to pass flatus. 04/17/2018: ileus resolved, ADAT. Would recommend an additional overnight observation since he was re-admitted this time with similar s/s so quickly from prior DC. Discussed with Int med team. 04/19/18: Still having GI issues. KUB doesn't look bad, still likely with ileus, possible poor gastric motility based on description of symptoms. Recommend making him NPO, place a PICC line, start TPN, which will provide nutrition while we go SLOWLY with advancing his diet and severely restrict intake volume. I would not advance diet until abdominal distention completely resolves. 04/20/18: Still bloated although he feels like he's improving. KUB yesterday is nonspecific, no obvious SBO. I recommend continuing NPO until bloating resolves. PICC line to be placed today so TPN can be restarted. If bloating doesn't improve over the next day or two then would recommend repeating abdominal CT, possibly with PO and IV contrast. I will continue to follow along with you until GI function returns to baseline. 04/21/18: Continued ileus. Recommend continuing bowel rest and TPN. Recommend SLOWLY resuming diet after distension improves further. If still distended tomorrow then will consider CT tomorrow. 04/22/18: Continued ileus vs SBO. Will get CT Abd/pelvis with PO and IV contrast today. Continue bowel rest and TPN. Will await the CT before deciding on further management. 04/23/18: CT actually looked good without signs of ileus or SBO. Diet advanced to clears. He's tolerating this so far. Will go slow on advancing his diet. Continue clear diet today and if tolerates will consider soft diet tomorrow. Continue TPN until he's tolerating a regular diet. 04/24/18: Progressing. Continue clears today, if he continues to do well with clears then will plan on GI soft diet tomorrow. Continue TPN until tolerating regular diet. 04/25/18: Doing well. Will try soft diet today, continue TPN until tolerating regular diet. 04/26/18: Feels more bloated. I recommend continuing current diet today and see how he does with it. Continue TPN. 04/27/18: Feeling good from GI standpoint today. Will try regular diet today and come down on TPN. Will get an x-ray of his left shoulder and will try lidocaine patch for the pain. Acetaminophen contraindicated due to cirrhosis, NSAIDS contraindicated due to antiplatelet therapy. Will also use ice and/or heat. O/W CCM. 04/28/18: Doing well from GI standpoint. Continue regular diet. Stop TPN today. X-ray of left should only with chronic arthritic changes. His arthritis discussed with Hospitalist and they will manage this. 04/29/18: Doing well from GI standpoint. Continue regular diet. CCM. (2) Nausea & vomiting Status: Resolved Assessment & Plan: 04/13/2018: Meño had SBFT done two days ago that showed no obstruction. Abdomen is distended, but soft without significant tenderness. WBC down to 11 K. My impression is that this represents ileus. He does have a history of hypothyroidism but admits to not routinely taking his levothyroxin. He did take it last night. Agree with plan of NG decompression and IV hydration. Patient being admitted to Hospitalist service for further work up to see if we can determine the etiology of his ileus. Surgery will continue to follow closely during his admission. 04/14/2018: Abdomen much less distended after NG suction. No significant tenderness. WBC down to 9K. Will continue NG suction and IVF's, will get F/U abdomen radiographs in am. 04/15/2018: Abdomen less distended, soft, and benign this am. Ileus persists, so cont NGT and bowel rest. Int Med team to correct metabolic and electrolyte abnormalities. 04/16/2018: abdomen remains benign on exam with improved bowel function. DC NGT this am and continue NPO except meds with sips. Consider clear liquids this evening if continues to pass flatus. 04/17/2018: ileus resolved, ADAT. Would recommend an additional overnight observation since he was re-admitted this time with similar s/s so quickly from prior DC. Discussed with Int med team. 04/19/18: Still having GI issues. KUB doesn't look bad, still likely with ileus, possible poor gastric motility based on description of symptoms. Recommend making him NPO, place a PICC line, start TPN, which will provide nutrition while we go SLOWLY with advancing his diet and severely restrict intake volume. I would not advance diet until abdominal distention completely resolves. (3) Left shoulder pain Status: Acute Condition Stable. Time Spent: < 30 min Exam Sepsis Risk: No Definite Risk Problem Qualifiers (1) Nausea & vomiting: Vomiting type: unspecified Vomiting Intractability: unspecified Qualified Codes: R11.2 - Nausea with vomiting, unspecified (2) Left shoulder pain: Chronicity: acute Qualified Codes: M25.512 - Pain in left shoulder NAN VILLANUEVA MD Apr 29, 2018 09:22
[2018-04-29] MEDS: LIDOCAINE 5% PATCH TP SCH (09:50)
[2018-04-29] MEDS: CARVEDILOL 6.25 MG TAB PO SCH ×2 (09:51→20:55)
[2018-04-29] MEDS: FAMOTIDINE 20 MG TAB PO SCH ×2 (09:51→20:55)
[2018-04-29] MEDS: CLOPIDOGREL BISULFATE 75MG TAB PO SCH (09:51)
[2018-04-29] MEDS: RANITIDINE HCL 150 MG TAB PO SCH ×2 (09:52→20:55)
[2018-04-29] MEDS: APIXABAN 2.5 MG TABLET PO SCH ×2 (09:52→20:55)
[2018-04-29] MEDS: methylPREDNIS SUCC 125 MG/2ML IVP SCH ×2 (09:52→21:04)
[2018-04-29] MEDS: TRIAMCINOLONE ACE 0.1% CR 15GM TP SCH ×2 (09:54→20:59)
[2018-04-29 11:08] VITALS: BP 116/66
[2018-04-29 15:58] VITALS: BP 111/74
[2018-04-29 18:58] VITALS: BP 131/56
[2018-04-29] MEDS: ROSUVASTATIN CALCIUM 10 MG TAB PO SCH (20:55)
[2018-04-29] MEDS: MELATONIN 3 MG TAB PO SCH (20:56)
[2018-04-29] MEDS: PATCH REMOVAL 1 EA TP SCH (21:00)
[2018-04-30 05:25] VITALS: BP 105/69
[2018-04-30] MEDS: LEVOTHYROXINE SOD 0.125 MG TAB PO SCH (05:29)
[2018-04-30 05:59] LABS: PLATELET COUNT, AUTOMATED 340 K/uL (150-450)
[2018-04-30 08:37] VITALS: BP 129/82
[2018-04-30] MEDS: RIOCIGUAT 2.5 MG PO SCH ×2 (09:00→14:00)
[2018-04-30] MEDS: LIDOCAINE 5% PATCH TP SCH (09:00)
[2018-04-30] MEDS: TRIAMCINOLONE ACE 0.1% CR 15GM TP SCH (09:00)
[2018-04-30] MEDS: FAMOTIDINE 20 MG TAB PO SCH (09:25)
[2018-04-30] MEDS: RANITIDINE HCL 150 MG TAB PO SCH (09:25)
[2018-04-30] MEDS: CARVEDILOL 6.25 MG TAB PO SCH (09:25)
[2018-04-30] MEDS: APIXABAN 2.5 MG TABLET PO SCH (09:25)
[2018-04-30] MEDS: FUROSEMIDE 40 MG TAB PO SCH (09:26)
[2018-04-30] MEDS: CLOPIDOGREL BISULFATE 75MG TAB PO SCH (09:26)
--- NOTE | 2018-04-30 10:57 | Hospitalist Depart ---
Discharge Summary Reason for Hosp/Final Diag: (1) Small bowel obstruction due to postoperative adhesions Status: Acute Hospital Course & Plan: Improved with NG decompression - now removed. Diet was advanced 04/17, but the patient drank multiple sodas and had increased abdominal bloating. His diet was cut back to only ice chips. Attempted diet advance again 04/18, with further abdominal bloating. Surgery recommended TPN with slow advance of diet. PICC line was placed 04/[address] of abd/pelvis done 04/22 shows resolution of ileus (or obstruction), but cirrhotic changes to liver. He seems to be tolerating clear liquids. His diet was advanced 04/25. TPN weaned and tolerating PO diet. (2) CHF (congestive heart failure) Hospital Course & Plan: His chest x-ray has shown small pleural effusions. An echocardiogram from his previous admission has shown his right ventricular pressure to be 69mmHg. He is on chronic treatment with Adempas. He has also been restarted on his oral Lasix and carvedilol. (3) Monoclonal gammopathies Status: Chronic Hospital Course & Plan: Indolent per report, follows with cancer center. (4) CAD (coronary artery disease) Status: Chronic Hospital Course & Plan: He is on chronic treatment with Plavix and Crestor. (5) Hypothyroid Status: Chronic Hospital Course & Plan: He was on 112mcg daily of Levothyroxine, but TSH was 10.10. His levothyroxine was increased to 125mcg daily. He will need to have a repeat TSH in 4-6 weeks. Med reconciliation on discharge incorrect. Should be 125mcg levothyroxine. (6) Pulmonary hypertension Status: Chronic Hospital Course & Plan: On chronic treatment as noted above. (7) DVT (deep venous thrombosis) Status: Chronic Hospital Course & Plan: On chronic Eliquis. (8) Atrial fibrillation/flutter Status: Chronic Hospital Course & Plan: He is on chronic carvedilol. (9) Dermatitis Hospital Course & Plan: He has a rash present to bilateral lower extremities. He has been placed on Triamcinolone. (10) Cirrhosis of liver Status: Chronic Hospital Course & Plan: This could potentially be related to his chronic pulmonary HTN with resultant "cardiac cirrhosis". Hepatitis B and C negative. (11) Shoulder pain, bilateral Status: Acute Hospital Course & Plan: He has been complaining of bilateral shoulder pain. He was started on IV steroids yesterday for suspected gout. Today he reports improvement in his symptoms. We weaned the dose of his steroids today. Departure Weight (Pounds): 165 Weight (Ounces): 4.0 Result Diagram: 04/30/1853304/30/18533 Condition: Improved Discharge: Home Discharge Instructions Home Meds Active Scripts Diclofenac Sodium 1% Gel (VOLTAREN 1% GEL) 100 Gm Gel..gram., 2 GM TOP TID for 30 Days, #1 TUBE Prov:ADY TIRADO MD 03/08/18 Pantoprazole Sodium (PROTONIX) 40 Mg Tablet.dr, 40 MG PO BID for 60 Days, #60 TAB.SR Prov:ADY TIRADO MD 02/08/18 Clopidogrel Bisulfate (CLOPIDOGREL) 75 Mg Tablet, 75 MG PO QDAY for 90 Days, #90 TAB 3 Refills Prov:ADY TIRADO MD 01/11/18 Apixaban (ELIQUIS) 5 Mg Tablet, 5 MG PO BID, #60 TAB 3 Refills Prov:ADY TIRADO MD 01/09/18 Rosuvastatin Calcium (CRESTOR) 40 Mg Tablet, 1 TAB PO QDAY for 90 Days, #90 TAB 4 Refills Prov:ADY TIRADO MD 01/06/18 Carvedilol (CARVEDILOL) 6.25 Mg Tab, 1 TAB PO BID, #30 TAB 6 Refills Prov:ADY TIRADO MD 12/20/17 Triamcinolone Acetonide 0.1% Oint 15 Gm Tube (TRIAMCINOLONE ACETONIDE 0.1% 15 GM TUBE) 15 Gm Oint...g., 15 GM TP DAILY for 14 Days, #1 TUBE Prov:ELIS VALLE MD 12/07/17 Clobetasol Propionate (CLOBETASOL PROPIONATE) 15 Gm Oint...g., 1 BRANDAN TP BID for 30 Days, #1 TUBE 2 Refills Prov:ADY TIRADO MD 12/07/17 Finasteride (FINASTERIDE) 5 Mg Tablet, 5 MG PO QHS, #90 TAB 1 Refill Prov:ELIS VALLE MD 07/14/17 Ferrous Sulfate (FERROUS SULFATE) 325 Mg Tablet, 325 MG PO DAILY, #30 TAB 5 Refills Prov:ELIS VALLE MD 06/09/17 Levothyroxine Sodium (LEVOTHYROXINE SODIUM) 0.112 Mg Tab, 0.112 MG PO QAM, #90 TAB 3 Refills Prov:ELIS VALLE MD 06/04/17 Reported Medications Prednisolone Acetate/Pf (Prednisolone Acet 1% Eye Drop) 1 % Drops.susp, 1 DROP OD BID 04/07/18 Ofloxacin (Ofloxacin) 0.3 % Drops, 1 DROP OU QID 04/07/18 Ketorolac Tromethamine/Pf (ACUVAIL 0.45% OPHTH SOLUTION) 1 Each Droperette, 1 DROP OP BID IN RIGHT EYE 04/07/18 Acetaminophen (TYLENOL EXTRA STRENGTH) 500 Mg Tablet, 2 TAB PO BID PRN for pain, CAP 01/11/18 Riociguat (Adempas) 2.5 Mg Tablet, 1 TAB PO TID 11/25/17 Cholecalciferol (Vitamin D3) (VITAMIN D) 5,000 Unit Tablet, 1 TAB PO DAILY 11/25/17 Furosemide (LASIX) 40 Mg Tablet, 1 TAB PO QDAY, TAB 10/20/17 Oxygen (OXYGEN) Inha, 3 L INH, L 08/07/17 Diet: Diabetic (ADVANCE SLOWLY TOLERATED) Special Instructions: Med rec incorrect, Levothyroxine increased to 125mcg daily. Copies to: ADY TIRADO MD ; Venous Thromboembolism Antithrombotics Is Pt On Any Antithrombotics?: Yes Heart Failure Ejection Fraction %: 60 RVSP (mmHg): 82 NYHA Class: II Is Patient on MAHI Inhibitor?: No Is Patient on Beta Jigar?: Yes Problem Qualifiers (1) CHF (congestive heart failure): Heart failure type: right-sided Heart failure chronicity: acute Qualified Codes: I50.811 - Acute right heart failure MADISYN JONES DO Apr 30, 2018 10:57
[2018-04-30] MEDS ORDERED: LEV125 PO (10:58)
--- NOTE | 2018-04-30 12:32 | Medical Nutrition Therapy ---
Nutrition Anthropometrics Height (Inches): 66.00 Height (Calculated Centimeters: 167.382401 Weight (Pounds): 165 Weight (Calculated Kilograms): 74.843 BMI: 24.5 Christiano Nutrition Score: Adequate Christiano Nutrition Risk Score: 19 Dietary Referral Nutrition Risk Factors: Nutrition Risk Comment: NG for suction Physical Findings Physical Appearance: WNR Skin Appearance Skin Appearance: Edema Edema Location Modifier: Both Edema Location: Lower Extremity Type of Edema: Degree of Edema: 1+ Gastrointestinal Symptoms GI Symtoms: Constipation, Change in Bowel Pattern Tube Present: NG Bowel Sounds: Recent Bowel Pattern: Stool Characteristics: Nutritional Diagnosis Nutritional Risk Acuity 1: GI Obstruction Nutritional Risk Acuity 2: CHF w/Complication, Chronic Renal Failure Nutritional Risk Acuity 3: Nausea Past Medical History: Hx of CHF, CKD-2, DVT, CAD, hypothyroid Nutritional Acuity: 1-High Nutrition Diagnosis: Increased Nutrient Needs Nutrition Etiology: Physiological Causes Nutrition Problem/Etiology/Sym: AEB low alb 2.6, Ca 8.2 Energy Requirement: 1750 (M-SJ) Protein Requirement: 80 (71kg* 1.1) Fluid Requirement: 1750 (1ml/kcal) Diet Type: Diet as Tolerated CABRERA/REG Nutrition Intervention: Cont diet as ordered, Encourage intake, Between meal supplement Food Likes: likes getting breakfast order taken in the AM Additional Diet Restrictions: OFFER NUTR SUPPLMENT Nutrition Monitoring & Eval Nutrition Follow-Up: Good Intake RD Patient Assessment Time: [address] Assessment Type: RD Re-Assessment Patient Nutrition Acuity: 1-High Follow Up Date: May 03, 2018 Nutritional Comment: 04/14 Pt discharged on . after evaluatin of SBO. Pt admitted .8 for SBO with symptoms of n/v and abd pain. Pt reported going home on a clear liq diet, and eating steak the follwing day. Pt has hx of CAD, CHF, CDK-2, DVT, and hypothyroid. Pt NPO and on NG tube for suction. Pt has 60% ejection fraction, BNP 297. Pt has low CA of 8.2, Mg of 1.5, and Alb at 2.6. TB 04/16/18 Pt improving with NG removed this AM and diet progression to Clear liquids. No reports of Clear liquid intake at present. Alb 2.9. Encourage intake. -DRT 04/19 Pt moved back to NPO/Ice chips. Will start PPN today at 125ml/hr meeting 73% kcal, 108% protein needs. Planned initiation for TPN tomorrow, recommend 75ml/hr + lipids. This will provide 2085 kcals and 90g protein. Pt's stomach is distended but reports flatus with no c/o n/v. Alb low at 2.5, will follow once nutrition support starts. TB 04/21 Pt NPO + TPN + lipids. Pt's kcal and protein needs are being met. Alb is up at at 3.2 from 2.5. Will cont to follow pt's progress and adherence to TPN. TB 04/22 Cont'ed TPN and lipids. Stomach feels distended, no pain. Also n/v has subsided. Pt is passing flatus and stool. Cont bowel rest and TPN. TB 04/25 Pt moved to [place]/Soft diet with cont'ed TPN + lipids. Pt was consuming 75-100% of clear liquids for breakfast and lunch, but decreased intake at dinner. TPN will be cont until pt is tolerating regular diet per MD note. Pt denies n/v, bloating. Pt reported to me he hasn't had a bowel movement yesterday or today. Alb is back up to 3.4, Iron low at 25. BG is a little elevated, but most likley due to an increase in PO. Will follow PO for soft foods and if GI symptoms arise. TB 04/27 Diet advanced to regular. Pt had been eating 50-100% of small portions. Pt C/O shoulder pain this am and refused breakfast. Pt stating it hurt too much to move arm to eat. Pt did accept a nutr supplement. TPN reduced to 35ml/hr plus lipids which is meeting 71% est kcal and 53% est protein needs. Goal is to meet nutr need from oral intake. Alb 2.7. Will cont to monitor and encourage intake. BK 04/30 Pt to be discharged today. GI improved and has been tolerating PO intake well. Intake of 75-100% of CABRERA over the previous few days. Last BM was this morning. TPN discontinued on 04/28. Notable labs include Hgb 9, Hct 27.5, K 5.1, BUN 64, BG ranging from 233-133, tot pro 6.2 and alb 3.2.-LIAM MORGAN Apr 30, 2018 12:32
[2018-04-30 13:56] VITALS: BP 122/72
[2018-05-03] MEDS ORDERED: LEV112 PO (13:11)
== END 2018-04-30 16:35 | disposition home or self-care (01) | DRG 388 ==
LOC: ER 18:24 → MED 21:25
PROVIDERS: ADMIT Internal Medicine; ATTEND Internal Medicine
PROC: 0D9670Z Drainage of Stomach with Drainage Device, Via Natural or Artificial Opening (ICD-10-PCS; 2018-04-13)
PROC: 02HV33Z Insertion of Infusion Device into Superior Vena Cava, Percutaneous Approach (ICD-10-PCS; principal; 2018-04-19)
PROC: B548ZZA Ultrasonography of Superior Vena Cava, Guidance (ICD-10-PCS; 2018-04-19)
PROC: 3E0436Z Introduction of Nutritional Substance into Central Vein, Percutaneous Approach (ICD-10-PCS; 2018-04-19)
DX: K56.51 Intestinal adhesions [bands], with partial obstruction (principal); I50.23 Acute on chronic systolic (congestive) heart failure; I13.0 Hypertensive heart and chronic kidney disease with heart failure and stage 1 through stage 4 chronic kidney disease, or unspecified chronic kidney disease; D47.2 Monoclonal gammopathy; N18.2 Chronic kidney disease, stage 2 (mild); I48.2 Chronic atrial fibrillation; K74.60 Unspecified cirrhosis of liver; I25.10 Atherosclerotic heart disease of native coronary artery without angina pectoris; I27.20 Pulmonary hypertension, unspecified; E03.9 Hypothyroidism, unspecified; N40.0 Benign prostatic hyperplasia without lower urinary tract symptoms; F41.8 Other specified anxiety disorders; L30.9 Dermatitis, unspecified; M10.9 Gout, unspecified; K21.9 Gastro-esophageal reflux disease without esophagitis; E78.00 Pure hypercholesterolemia, unspecified; Z86.718 Personal history of other venous thrombosis and embolism; Z79.01 Long term (current) use of anticoagulants; Z88.8 Allergy status to other drugs, medicaments and biological substances; Z88.5 Allergy status to narcotic agent; Z95.5 Presence of coronary angioplasty implant and graft; I25.2 Old myocardial infarction; Z90.49 Acquired absence of other specified parts of digestive tract; Z85.79 Personal history of other malignant neoplasms of lymphoid, hematopoietic and related tissues; Z86.711 Personal history of pulmonary embolism
CPT/HCPCS: 36415; 36416; 36569; 71045; 74018; 74019; 74177; 76937; 80320; 81001; 82040; 82150; 82247; 82248; 82310; 82374; 82435; 82565; 82728; 82947; 82948; 83540; 83550; 83605; 83690; 83735; 83880; 84075; 84100; 84132; 84155; 84295; 84443; 84450; 84460; 84520; 84550; 85025; 85651; 86038; 86140; 86706; 86803; 87340; 94640; 96361; 96374; 97166; 99285; A9270; C1751; J1650; J1815; J1940; J2001; J2270; J2405; J2550; J2930; J3010; J3475; J3480; J3490; J7030; J7040; J7042; Q9967

== ENCOUNTER → 2018-05-03 | Outpatient (CLI) | payer BC ==
[2018-04-14 07:55] VITALS: BMI 25.3
[~2018-05-03] MED LIST changes: +LEV125 PO
[2018-05-03 14:05] LABS: PLATELET COUNT, AUTOMATED 436 K/uL (150-450)
--- NOTE | 2018-05-03 14:51 | RADIOLOGY IMAGING REPORT ---
FACILITY: [facility] PATIENT NAME: Meño Arechiga : 1940 MR: [id number] V: [id number] EXAM DATE: ORDERING PHYSICIAN: ADY TIRADO TECHNOLOGIST: Location: [facility] [place] Patient: Meño Arechiga : 1940 Visit/Account:[id number] Date of Sevice: 05/03/2018 KUB SINGLE VIEW ABDOMEN Indication: fu obstruction Comparison: Abdomen radiograph 04/19/2018 Findings: Bilateral common iliac artery stents are seen unchanged. Normal bowel gas pattern is ident ified. There are postoperative changes consistent with cholecystectomy. IMPRESSION: Normal bowel gas pattern. Report Dictated By: Nabeel Adler at 05/03/2018 2:45 PM Report E-Signed By: Nabeel Adler at 05/03/2018 2:47 PM [id number]
== END ==
LOC: LAB 13:28
PROVIDERS: ATTEND Family Medicine
DX: N18.9 Chronic kidney disease, unspecified (principal); N64.9 Disorder of breast, unspecified; Z87.19 Personal history of other diseases of the digestive system
CPT/HCPCS: 36415; 74018; 82310; 82374; 82435; 82565; 82947; 84132; 84295; 84520; 85025

== ENCOUNTER → 2018-05-09 | Outpatient (CLI) | payer BC ==
[2018-04-14 07:55] VITALS: BMI 25.3
[~2018-05-09] MED LIST changes: +SIMV-117 PO; -SIMV-63 PO
== END ==
LOC: RESP 07:27
PROVIDERS: ATTEND Internal Medicine
DX: I27.20 Pulmonary hypertension, unspecified (principal)
CPT/HCPCS: 94618

== ENCOUNTER → 2018-05-18 | Outpatient (CLI) | payer BC ==
[2018-04-14 07:55] VITALS: BMI 25.3
== END ==
LOC: RESP 05-10 01:46 → US 00:33
PROVIDERS: ATTEND Internal Medicine
DX: I27.20 Pulmonary hypertension, unspecified (principal); I51.7 Cardiomegaly; I34.0 Nonrheumatic mitral (valve) insufficiency; J90 Pleural effusion, not elsewhere classified
CPT/HCPCS: 93306

== ENCOUNTER 2018-05-27 07:15 | Outpatient (RCR) | payer BC ==
[2018-04-14 07:55] VITALS: BMI 25.3
[~2018-05-27 07:15] MED LIST changes: -ROS10 PO; +ROSU10TA PO
[2018-05-27 11:21] LABS: PLATELET COUNT, AUTOMATED 448 K/uL (150-450)
--- NOTE | 2018-05-27 23:04 | EL-TARABILY ONCOLOGY NOTE ---
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 CHIEF COMPLAINT Patient is here today for followup of his smoldering multiple myeloma. ONCOLOGY HISTORY Patient is a 77-year-old male who came to the [facility] for evaluation of multiple concerns including severe pulmonary hypertension, recurrent venous thromboembolism, coronary artery disease, systolic heart failure with left ventricular ejection fraction of 45%, COPD, peripheral arterial disease, chronic lower extremity edema, nonhealing lower extremity ulcer, and generalized pruritus. During his evaluation and admission there, he had nausea and vomiting, and the patient was admitted for evolving sepsis and possible lower extremity cellulitis. His baseline creatinine is 1.4, and during hospitalization, his creatinine peaked at 3.1 on May 04, 2017, which has improved after that. It was thought that his acute kidney injury was due to both hypotension and hemoglobin drop. During his hospitalization, Hematology was consulted regarding his monoclonal gammopathy with question of possible POEMS syndrome. He was eventually diagnosed with multiple myeloma with 10% to 20% lambda light chain restricted plasma cells. Immunofixation showed IgD lambda and serum free light chain noted at kappa of 6.25 and lambda of 88.1 and a ratio of 0.0709. CT skeletal survey was negative for lytic or sclerotic bone lesions. He has had lower extremity edema for several years with erythematous induration. This has become pruritic. Patient does have known peripheral vascular disease. The question at that time when he was in [facility] was if the deterioration of his kidney function is because of his progressive kidney disease versus multiple myeloma, and it was thought that this was not due to his myeloma which is thought to be smoldering myeloma as per patient, so no indication for treatment was suggested at that time. HISTORY OF PRESENT ILLNESS Patient is here today for followup of his multiple myeloma. He is complaining of some runny nose. He has cough with expectoration, and he has pain in his shoulders and neck. His general condition is better. He was admitted to the hospital two months ago for pneumonia, but he is doing fine currently. PAST MEDICAL HISTORY 1. Chronic venous insufficiency with edema. 2. Congestive heart failure. 3. Coronary artery disease, status post stent in 2007. 4. Peripheral vascular disease, status post PTCA November 2014, November 2015, January 2016, January 2017. 5. Pulmonary hypertension diagnosed in July 2015. 6. Right heart catheterization in December 2016 showed pressure 90/35 with a mean of 52. 7. History of recurrent lower extremity DVT, pulmonary embolism once, on lifelong anticoagulation. 8. Possible COPD, on home oxygen at night. 9. Granulomatous lung disease. 10. Paroxysmal atrial fibrillation. 11. Chronic anxiety. 12. HLA-B27 positive, diagnosed with ankylosing spondylitis at [place] in late , currently quiet. 13. GERD. 14. Indeterminate skin rash. 15. Possible peripheral neuropathy. 16. Hypothyroidism. 17. Early cataract. 18. Multiple myeloma, ISS stage II. 19. Proteinuria with normal creatinine 2.2 g/24 hours December 2016. 20. Impaired fasting glucose. A1c 6.3 in 2017. 21. Hyperlipidemia. 22. Hypertension. PAST SURGICAL HISTORY 1. Back surgery with laminectomy in . 2. Tonsillectomy. 3. Appendectomy. 4. Cholecystectomy. 5. Splenectomy following a high school sports injury. SOCIAL HISTORY Patient lives in [place], [place]. He is and has two children. 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 He smoked approximately a quarter to half a pack per day for 25 to 30 years and quit in 1989. He drank a fair amount of alcohol in the past, but now less than weekly. Denies drug use. FAMILY HISTORY Mother had lung cancer, and she was a smoker. There is a positive family history of polycystic disease. CURRENT MEDICATIONS 1. Metolazone 2.5 mg daily every other day. 2. Lasix 40 mg daily. 3. Tramadol 50 mg q.6 hours p.r.n. for pain. 4. MiraLAX 17 g daily. 5. Alprazolam 0.5 mg three times daily as needed for anxiety. 6. Carvedilol 12.5 mg tablet one-half tablet twice daily. 7. Gabapentin 300 mg three times daily. 8. Magnesium oxide 400 mg daily. 9. Adempas 1 mg tablet. 10. Vitamin D 2000 units daily. 11. Eliquis 5 mg twice daily. 12. Artificial Tears four times daily. 13. Levothyroxine 112 mcg daily. 14. Finasteride 5 mg at bedtime. 15. Aspirin 81 mg daily. 16. Oxygen by inhalation. ALLERGIES TRAZODONE which caused itching. REVIEW OF SYSTEMS CONSTITUTIONAL: No appetite or weight change. No fever, chills, or sweating. No recent infection. HEENT: Ears: No tinnitus or hearing problem. Nose: He has nasal discharge. No epistaxis. Throat: No sore throat or mouth ulcers. Eyes: No diplopia or visual changes. RESPIRATORY: No shortness of breath. He has cough with expectoration. No hemoptysis. CARDIOVASCULAR: No chest pain, orthopnea, or paroxysmal nocturnal dyspnea (PND). No edema. No palpitations. GASTROINTESTINAL: No nausea or vomiting. No diarrhea or constipation. No change in bowel movements. No heartburn or swallowing difficulties. No abdominal pain. No jaundice. No hematemesis, melena, or rectal bleeding. GENITOURINARY: No hematuria or dysuria. MUSCULOSKELETAL: He has pain in the shoulders and neck. NEUROLOGIC: No tingling or numbness in the hands or feet. No headaches or convulsions. HEMATOLOGIC/LYMPHATIC: No bleeding or easy bruising. No weakness or fatigue. No enlarged lymph nodes. SKIN: No skin rash or lumps. PSYCHIATRIC: No anxiety or depression. PHYSICAL EXAMINATION GENERAL: Looks stable. Well developed, well nourished, and in no acute distress. VITAL SIGNS: Blood pressure 114/68, pulse 96 per minute, respirations 18 per minute, temperature 98.9, pulse ox 93% on 2L oxygen. HEENT: Head: Atraumatic. No sinus tenderness to palpation. Eyes: No icterus or conjunctivitis. Mouth and throat: No oral thrush or mucositis. NECK: Supple. No cervical or supraclavicular lymphadenopathy. LUNGS: Clear to auscultation and percussion bilaterally. HEART: Regular rate and rhythm. No gallops, murmurs, clicks, or rubs. ABDOMEN: Soft and lax. No tenderness. No hepatosplenomegaly. No masses. EXTREMITIES: No cyanosis, clubbing, or edema. LYMPHATICS: No peripheral lymphadenopathy. NEUROLOGIC: Conscious, alert, and oriented times three. No focal motor or sensory deficits. PSYCHIATRIC: Mood and affect appear normal. SKIN: No skin rash, bruise, or purpuric eruption. DIAGNOSTIC DATA CBC showed white count 9.5, hemoglobin 10.8, hematocrit 33.6, platelets 448,000. ASSESSMENT Smoldering multiple myeloma with IgD lambda. CT skeletal survey came back negative for lytic or sclerotic bone lesions. Patient has been evaluated at [facility] and was diagnosed with smoldering multiple myeloma with recommendation of followup and surveillance. His lambda free light chain increased from 88 to 768.5, which I thought was wrong. Repeat skeletal bone survey September 30, 2017, came back negative. Urine kappa free light chain was 3.9, and the IgD level was 172. His myeloma profile for today is pending. I will see the patient again in three months with CBC, chemistry panel, LDH, uric acid, myeloma profiling including quantitation of IgD and 24-hour urine for free light chain assay. He is currently stable, and actually, his general condition looks better. He was discharged from the hospital recently with pneumonia, but he is doing fine currently. PLAN 1. Continue followup. 2. Patient to return in three months with CBC, chem panel, LDH, uric acid, myeloma profile including quantitation of IgD and a 24-hour urine for free light chain assay. 3. Patient is to contact us for any new concern or complaints. DAVID
[2018-06-01] MEDS ORDERED: APIX5TAB PO (16:37)
[2018-06-06] MEDS ORDERED: LEV112 PO (10:57)
[2018-07-01] MEDS ORDERED: ROSU40TA18 PO (13:01)
[2018-07-18] MEDS ORDERED: RANI-318 PO (15:28)
[2018-07-19] MEDS ORDERED: LEVO-3 PO (13:51)
== END 2018-08-25 ==
LOC: SPU 07:15
PROVIDERS: ATTEND Internal Medicine Hematology
DX: C90.00 Multiple myeloma not having achieved remission (principal); R53.1 Weakness; R53.83 Other fatigue; Z87.891 Personal history of nicotine dependence; Z79.01 Long term (current) use of anticoagulants; K59.00 Constipation, unspecified; R19.7 Diarrhea, unspecified
CPT/HCPCS: 36415; 82040; 82232; 82247; 82310; 82374; 82435; 82565; 82784; 82947; 83615; 83883; 84075; 84132; 84155; 84156; 84295; 84450; 84460; 84520; 84550; 85025; 86334; 86335; 99212

== ENCOUNTER → 2018-06-20 | Outpatient (CLI) | payer BC ==
[2018-04-14 07:55] VITALS: BMI 25.3
[~2018-06-20] MED LIST changes: +ROS10 PO; -ROSU10TA PO
== END ==
LOC: LAB 16:43
PROVIDERS: ATTEND Family Medicine
DX: N18.9 Chronic kidney disease, unspecified (principal)
CPT/HCPCS: 36415; 82310; 82374; 82435; 82565; 82947; 84132; 84295; 84520

== ENCOUNTER → 2018-07-18 | Outpatient (CLI) | payer BC ==
[2018-04-14 07:55] VITALS: BMI 25.3
[~2018-07-18] MED LIST changes: +RANI-318 PO
== END ==
LOC: LAB 15:52
PROVIDERS: ATTEND Family Medicine
DX: E03.9 Hypothyroidism, unspecified (principal); E78.5 Hyperlipidemia, unspecified
CPT/HCPCS: 36415; 82465; 83718; 84443; 84478

== ENCOUNTER 2018-07-21 11:15 | Outpatient (RCR) | payer BC ==
[2018-04-14 07:55] VITALS: BMI 25.3
--- NOTE | 2018-07-20 15:33 | PT INITIAL EVALUATION ---
MEDICAL DIAGNOSIS: R shoulder RTC impingement and irritation TREATMENT DIAGNOSIS: same DATE OF ONSET: 07/04/18 SUBJECTIVE: Meño Arechiga presents to physical therapy with complaints of R shoulder pain that started approximately two weeks ago without a mechanism of injury. He reports that he does not have any pain in the morning and without movement as he rates it to be 0/10. Furthermore, he reports his pain increases to 3-4/10 with movement in any directions. Lastly, he reports that his pain further increases at night and rates it to be 6-7/10 and finds it difficult to sleep at night. He describes the pain as throbbing. Furthermore, he reports that if he sleeps with a heating pad he is able to fall asleep and tends to sleep better. Pain location is R anterior shoulder and described as throbbing. Pain scale is 0 on a ten point pain scale. REHAB PROBLEM LIST: Increased Pain Decreased ROM Decreased Strength Decreased Endurance Decreased Function Decreased ADL's PREVIOUS MEDICAL HISTORY: See EMR OCCUPATION: Retired OBJECTIVE: Posture: He demonstrates forward head, rounded shoulders, and increased thoracic kyphosis. ROM: R shoulder PROM: WNL's with empty end feels in all directions. AROM: flexion, scaption, and abduction: full with painful arc. IR and ER: full without any pain. Strength: R shoulder. Flexion: 4+/5 without any pain. scaption: strong and painful. abduction: strong and painful. ER: strong and painful. IR: 5/5 with no pain. Palpation: TTP: bicipital groove, LHB, and supraspinatus insertional points Special Tests: (+) storm-shawanda, eliza, alexander. (-) cervical involvement. (+) for LHB involvement (tendinopathy as it is painful with contraction, lengthening, and palpation. Normal accessory mobility of scapulae. Mobility: Gait: scapulohumeral rhythm normal ASSESSMENT: Meño will benefit from skilled physical therapy addressing the listed impairments to improve function and QOL. Short Term Goals 6 weeks: Pt will demonstrate increased R shoulder PROM-AROM in all directions with no pain and no limitations to improve function and QOL. 6 weeks: Pt will be independent with his HEP. 6 weeks: Pt will demonstrate 4+/5 with RTC and periscapular musculature to improve function and QOL along with no pain. Patient's Goals sleep better PLAN: Patient to be seen for Manual Therapy/STM/MET Strengthening/condition Ice/Heat Range of Motion Spinal Stabilization Work Hardening/Cond Stretching Iontophoresis Neuromuscular Re-ed Closed Chain Program Electrical Stim Posture/Body mechanics Gait Trg/Balance Trg Home Exercise Program Therapeutic Activities 2x/Week for 6 Weeks If you have any questions, comments, or concerns about this report or plan, please contact me at . Thank you, Gordo Zavala, PT, DPT MTDD
== END 2018-07-21 18:00 | disposition home or self-care (01) ==
LOC: PT 11:15
PROVIDERS: ATTEND Orthopaedic Surgery
DX: M75.41 Impingement syndrome of right shoulder (principal)
CPT/HCPCS: 97162

== ENCOUNTER 2018-09-09 08:51 | Outpatient (RCR) | payer BC ==
[2018-04-14 07:55] VITALS: Wt 69.9 kg
[~2018-09-09 08:51] MED LIST changes: +PRED5DRO3 OU; -ROS10 PO; +ROSU10TA PO
[2018-09-09 08:57] VITALS: BP 140/73
--- NOTE | 2018-09-09 10:49 | EL-TARABILY ONCOLOGY NOTE ---
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 CHIEF COMPLAINT Patient is here today for followup of his smoldering multiple myeloma. ONCOLOGY HISTORY Patient is a 77-year-old male who came to the [facility] for evaluation of multiple concerns including severe pulmonary hypertension, recurrent venous thromboembolism, coronary artery disease, systolic heart failure with left ventricular ejection fraction of 45%, COPD, peripheral arterial disease, chronic lower extremity edema, nonhealing lower extremity ulcer, and generalized pruritus. During his evaluation and admission there, he had nausea and vomiting, and the patient was admitted for evolving sepsis and possible lower extremity cellulitis. His baseline creatinine is 1.4, and during hospitalization, his creatinine peaked at 3.1 on May 04, 2017, which has improved after that. It was thought that his acute kidney injury was due to both hypotension and hemoglobin drop. During his hospitalization, Hematology was consulted regarding his monoclonal gammopathy with question of possible POEMS syndrome. He was eventually diagnosed with multiple myeloma with 10% to 20% lambda light chain restricted plasma cells. Immunofixation showed IgD lambda and serum free light chain noted at kappa of 6.25 and lambda of 88.1 and a ratio of 0.0709. CT skeletal survey was negative for lytic or sclerotic bone lesions. He has had lower extremity edema for several years with erythematous induration. This has become pruritic. Patient does have known peripheral vascular disease. The question at that time when he was in [facility] was if the deterioration of his kidney function is because of his progressive kidney disease versus multiple myeloma, and it was thought that this was not due to his myeloma which is thought to be smoldering myeloma as per patient, so no indication for treatment was suggested at that time. HISTORY OF PRESENT ILLNESS Patient is here today for followup of his smoldering multiple myeloma. He is complaining of some cough with expectoration and exertional shortness of breath. He has also some weakness and fatigue and pain in his right shoulder. PAST MEDICAL HISTORY 1. Chronic venous insufficiency with edema. 2. Congestive heart failure. 3. Coronary artery disease, status post stent in 2007. 4. Peripheral vascular disease, status post PTCA November 2014, November 2015, January 2016, January 2017. 5. Pulmonary hypertension diagnosed in July 2015. 6. Right heart catheterization in December 2016 showed pressure 90/35 with a mean of 52. 7. History of recurrent lower extremity DVT, pulmonary embolism once, on lifelong anticoagulation. 8. Possible COPD, on home oxygen at night. 9. Granulomatous lung disease. 10. Paroxysmal atrial fibrillation. 11. Chronic anxiety. 12. HLA-B27 positive, diagnosed with ankylosing spondylitis at [place] in late , currently quiet. 13. GERD. 14. Indeterminate skin rash. 15. Possible peripheral neuropathy. 16. Hypothyroidism. 17. Early cataract. 18. Multiple myeloma, ISS stage II. 19. Proteinuria with normal creatinine 2.2 g/24 hours December 2016. 20. Impaired fasting glucose. A1c 6.3 in 2017. 21. Hyperlipidemia. 22. Hypertension. PAST SURGICAL HISTORY 1. Back surgery with laminectomy in . 2. Tonsillectomy. 3. Appendectomy. 4. Cholecystectomy. 5. Splenectomy following a high school sports injury. SOCIAL HISTORY Patient lives in [place], [place]. He is and has two children. 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 He smoked approximately a quarter to half a pack per day for 25 to 30 years and quit in 1989. He drank a fair amount of alcohol in the past, but now less than weekly. Denies drug use. FAMILY HISTORY Mother had lung cancer, and she was a smoker. There is a positive family history of polycystic disease. CURRENT MEDICATIONS 1. Metolazone 2.5 mg daily every other day. 2. Lasix 40 mg daily. 3. Tramadol 50 mg q.6 hours p.r.n. for pain. 4. MiraLAX 17 g daily. 5. Alprazolam 0.5 mg three times daily as needed for anxiety. 6. Carvedilol 12.5 mg tablet one-half tablet twice daily. 7. Gabapentin 300 mg three times daily. 8. Magnesium oxide 400 mg daily. 9. Adempas 1 mg tablet. 10. Vitamin D 2000 units daily. 11. Eliquis 5 mg twice daily. 12. Artificial Tears four times daily. 13. Levothyroxine 112 mcg daily. 14. Finasteride 5 mg at bedtime. 15. Aspirin 81 mg daily. 16. Oxygen by inhalation. ALLERGIES TRAZODONE which caused itching. REVIEW OF SYSTEMS CONSTITUTIONAL: No appetite or weight change. No fever, chills, or sweating. No recent infection. HEENT: Ears: No tinnitus or hearing problem. Nose: He has nasal discharge. No epistaxis. Throat: No sore throat or mouth ulcers. Eyes: No diplopia or visual changes. RESPIRATORY: He has cough with expectoration and exertional shortness of breath. CARDIOVASCULAR: No chest pain, orthopnea, or paroxysmal nocturnal dyspnea (PND). No edema. No palpitations. GASTROINTESTINAL: No nausea or vomiting. No diarrhea or constipation. No change in bowel movements. No heartburn or swallowing difficulties. No abdominal pain. No jaundice. No hematemesis, melena, or rectal bleeding. GENITOURINARY: No hematuria or dysuria. MUSCULOSKELETAL: He has pain in the right shoulder. NEUROLOGIC: No tingling or numbness in the hands or feet. No headaches or convulsions. HEMATOLOGIC/LYMPHATIC: He is weak, tired and fatigue. SKIN: No skin rash or lumps. PSYCHIATRIC: No anxiety or depression. PHYSICAL EXAMINATION GENERAL: Looks stable. Well developed, well nourished, and in no acute distress. VITAL SIGNS: Blood pressure 140/73, pulse 71 per minute, respirations 16 per minute, temperature 96.6, pulse ox 88% on room air. HEENT: Head: Atraumatic. No sinus tenderness to palpation. Eyes: No icterus or conjunctivitis. Mouth and throat: No oral thrush or mucositis. NECK: Supple. No cervical or supraclavicular lymphadenopathy. LUNGS: Clear to auscultation and percussion bilaterally. HEART: Regular rate and rhythm. No gallops, murmurs, clicks, or rubs. ABDOMEN: Soft and lax. No tenderness. No hepatosplenomegaly. No masses. EXTREMITIES: No cyanosis, clubbing, or edema. LYMPHATICS: No peripheral lymphadenopathy. NEUROLOGIC: Conscious, alert, and oriented times three. No focal motor or sensory deficits. PSYCHIATRIC: Mood and affect appear normal. SKIN: No skin rash, bruise, or purpuric eruption. DIAGNOSTIC DATA CBC showed white count 11.9, hemoglobin 14.4, hematocrit 43.6, platelets 379,000. Absolute neutrophil count was a little bit high at 9.5. Quantitative immunoglobulins showed IgG level of 577. IgA level is 393 and IgM level was 36. He has an M spike of 0.3 g/dL and immunofixation showed IgD monoclonal protein with lambda light chain specificity. It shows also IgA monoclonal protein with kappa light chain specificity. The free kappa light chain assay was 56.5, which is high. Wide free lambda light chain was high was 965.7 and kappa to lambda ratio was low at 0.04. Chem panel was totally normal except BUN 28, chloride 109, ALT 47. IgD level was high at 107.65. Uric acid normal at 6.9. LDH normal at 208. Beta-2 microglobulin was slightly elevated at 2.8. Urinary free light chain or Bence Grace protein showed free kappa light chain at 98.5, which is high, and lambda free light chain was 112, which is also high. ASSESSMENT Smoldering multiple myeloma with IgD lambda and IgA kappa. Skeletal bone survey done by CT scan came back negative for lytic or sclerotic bone lesions. Patient has been evaluated at [facility] and was diagnosed with smoldering multiple myeloma with recommendation of followup and surveillance. His lambda free light chain increased from 88 to 768.5 and his current level is 965.7. Repeated skeletal bone survey September 30, 2017, came back negative. Urine kappa free light chain was 3.9 and currently it is 98.5. IgD level was 172 and currently is 107.65. His general condition is much better than before and I am planning to continue followup. I am planning to see him in four months with CBC, chem panel, LDH, uric acid, myeloma profile including IgD level and 24-hour urine for Bence Grace protein. PLAN 1. Continue followup. 2. Patient to return in four months with CBC, chem panel, LDH, uric acid, myeloma profile including quantitation of IgD and 24-hour urine for free light chain assay. 3. Patient is to contact us for any new concerns or complaints. [facility]
[2018-09-22] MEDS ORDERED: FURO40TA35 PO (11:38)
[2018-10-06] MEDS ORDERED: CAR6.25 PO (16:22)
[2018-10-10] MEDS ORDERED: LEVO-3 PO (15:23)
[2018-10-17] MEDS ORDERED: ERYT1OIN3 TOP (12:47)
[2018-10-17] MEDS ORDERED: FURO40TA35 PO (13:51)
== END 2018-10-14 09:05 | disposition home or self-care (01) ==
LOC: ONC 08:51
PROVIDERS: ATTEND Internal Medicine Hematology
DX: C90.00 Multiple myeloma not having achieved remission (principal); R05 Cough; R06.02 Shortness of breath; R53.1 Weakness; R53.83 Other fatigue; M25.511 Pain in right shoulder; Z79.899 Other long term (current) drug therapy; Z87.891 Personal history of nicotine dependence
CPT/HCPCS: 99212

== ENCOUNTER → 2018-09-10 | Outpatient (CLI) | payer BC ==
[2018-04-14 07:55] VITALS: BMI 25.3
== END ==
LOC: LAB 12:43
PROVIDERS: ATTEND Urology
DX: N40.1 Benign prostatic hyperplasia with lower urinary tract symptoms (principal); R97.20 Elevated prostate specific antigen [PSA]; Z87.448 Personal history of other diseases of urinary system
CPT/HCPCS: 36415; 82565; 84153

== ENCOUNTER → 2018-09-13 | Outpatient (CLI) | payer BC ==
[2018-04-14 07:55] VITALS: BMI 25.3
== END ==
LOC: LAB 16:19
PROVIDERS: ATTEND Urology
DX: R31.29 Other microscopic hematuria (principal)
CPT/HCPCS: 81001; 87088

== ENCOUNTER 2018-09-15 09:00 | Outpatient (RCR) | payer BC ==
[2018-04-14 07:55] VITALS: BMI 25.3
[2018-09-22] MEDS ORDERED: FURO40TA35 PO (11:38)
== END 2018-09-28 ==
LOC: CARD 09:00
PROVIDERS: ATTEND Family Medicine
DX: J96.10 Chronic respiratory failure, unspecified whether with hypoxia or hypercapnia (principal); I27.20 Pulmonary hypertension, unspecified; Z86.711 Personal history of pulmonary embolism
CPT/HCPCS: G0239 ×20

== ENCOUNTER → 2018-10-06 | Outpatient (CLI) | payer BC ==
[2018-04-14 07:55] VITALS: BMI 25.3
== END ==
LOC: LAB 11:44
PROVIDERS: ATTEND Family Medicine
DX: E03.9 Hypothyroidism, unspecified (principal)
CPT/HCPCS: 36415; 84443

== ENCOUNTER 2019-01-11 14:49 | Outpatient (RCR) | payer BC ==
[2018-04-14 07:55] VITALS: BMI 25.3
[~2019-01-11 14:49] MED LIST changes: +ERYT1OIN3 TOP; -RANI-366 PO; +RANI-54 PO; +ROSU5TAB8 PO; +TOBDOO OU
[2019-01-18] MEDS ORDERED: FURO40TA35 PO (08:29)
[2019-01-19] MEDS ORDERED: FURO40TA35 PO (10:31)
== END 2019-01-12 15:09 | disposition home or self-care (01) ==
LOC: ONC 14:49
PROVIDERS: ATTEND Internal Medicine Hematology
DX: D47.2 Monoclonal gammopathy (principal)